=== PATIENT | female | born 1945 | race Caucasian/White ===

== ENCOUNTER → 2016-06-24 | Outpatient (CLI) | payer MEDICARE ==
[2016-06-24 14:07] LABS: Basophils % (A) 0 %; CH 29.9; CHCM 32.5; Eosinophils # (A) 0.1 k/uL (0-0.7); Eosinophils % (A) 2 %; HCT 41.6 % (34.0-46.0); HDW 2.04; HGB 13.3 gm/dL (11.4-16.0); Luc # (Auto) 0.15; Luc % (Auto) 2; Lymphocytes # (A) 1.5 k/uL (1.0-4.8); Lymphocytes % (A) 21 %; MCH 29.6 pg (25.0-35.0); MCHC 32.1 g/dL (31.0-37.0); MCV 92.4 fL (80.0-100.0); Mean Platelet Volume 6.6; Monocytes # (A) 0.4 k/uL (0-1.0); Monocytes % (A) 6 %; Neutrophils % (A) 70 %; RDW 12.6 % (11.5-15.5); WBC 7.2 k/uL (3.8-10.6); WBC (Perox) 7.48
[2016-06-24 14:16] LABS: ALT 45 U/L (9-52); AST 27 U/L (14-36); Anion Gap 12 mmol/L; Blood Urea Nitrogen 14 mg/dL (7-17); Carbon Dioxide 28 mmol/L (22-30); Chloride 101 mmol/L (98-107); Cholesterol 199 mg/dL (<200); Creatine Kinase 55 U/L (30-135); Glucose 93 mg/dL (74-99); HDL Cholesterol 61 mg/dL (40-60); Non-African American GFR(MDRD) >60 (>60 ml/min/1.73 sqM); Potassium 4.4 mmol/L (3.5-5.1); Sodium 141 mmol/L (137-145); Triglycerides 136 mg/dL (<150)
== END | disposition home or self-care (01) ==
LOC: LABWHC1 12:02
PROVIDERS: ATTEND Internal Medicine Cardiovascular Disease
DX: E78.2 Mixed hyperlipidemia (principal); I10 Essential (primary) hypertension; I25.10 Atherosclerotic heart disease of native coronary artery without angina pectoris; Z79.899 Other long term (current) drug therapy
CPT/HCPCS: 36415; 80051; 80061; 82550; 82565; 82947; 84450; 84460; 84520; 85025

== ENCOUNTER → 2016-06-24 | Outpatient (CLI) | payer MEDICARE ==
--- NOTE | 2016-07-07 09:06 | MM ---
Reason for exam: screening (asymptomatic). Last mammogram was performed 1 year and 9 months ago. History: Patient is postmenopausal and history of other cancer. Physical Findings: A clinical breast exam by your physician is recommended on an annual basis and results should be correlated with mammographic findings. MG 3D Screening Mammo W/Cad Bilateral CC and MLO view(s) were taken. Prior study comparison: September 27, 2014, mammogram, performed at [place]. November 24, 2012, mammogram, performed at [place]. There are scattered fibroglandular densities. No significant changes when compared with prior studies. ASSESSMENT: Negative, BI-RAD 1 RECOMMENDATION: Routine screening mammogram of both breasts in 1 year.
== END | disposition home or self-care (01) ==
LOC: RADMAMWWP 11:50
PROVIDERS: ATTEND Internal Medicine
DX: Z12.31 Encounter for screening mammogram for malignant neoplasm of breast (principal)
CPT/HCPCS: 77063; G0202

== ENCOUNTER → 2017-12-15 | Outpatient (CLI) | payer MEDICARE ==
--- NOTE | 2017-12-16 11:06 | MM ---
Reason for exam: screening (asymptomatic). Last mammogram was performed 1 year and 6 months ago. History: Patient is postmenopausal and history of other cancer. Physical Findings: A clinical breast exam by your physician is recommended on an annual basis and results should be correlated with mammographic findings. MG 3D Screening Mammo W/Cad Bilateral CC and MLO view(s) were taken. Prior study comparison: June 24, 2016, bilateral MG 3d screening mammo w/cad. September 27, 2014, mammogram, performed at [place]. There are scattered fibroglandular densities. There is no discrete abnormality. ASSESSMENT: Benign, BI-RAD 2 RECOMMENDATION: Routine screening mammogram of both breasts in 1 year.
== END | disposition home or self-care (01) ==
LOC: RADMAMWWP 09:10
PROVIDERS: ATTEND Internal Medicine
DX: Z12.31 Encounter for screening mammogram for malignant neoplasm of breast (principal)
CPT/HCPCS: 77063; 77067

== ENCOUNTER 2018-04-05 09:17 | Day surgery (SDC) | payer MEDICARE ==
[2018-04-02 09:32] VITALS: BMI 27.2
[~2018-04-05 09:17] MED LIST: LACTATED RINGERS 1,000 ML IV SCH
[2018-04-05 10:18] VITALS: TEMP 97.6
[2018-04-05] MEDS ORDERED: PROPOFOL 10 MG/ML 20 ML VIAL IV ONE (10:41)
--- NOTE | 2018-04-05 11:22 | P.PCN ---
Date of Procedure: 04/05/18 Procedure(s) Performed: Procedure: Total colonoscopy. Preoperative diagnosis: Screening for neoplasia patient has history of polyps. Postoperative diagnosis: Sigmoid diverticulosis with no evidence of acute diverticulitis, strictures, polyps or cancer. Preparation: HalfLytely prep. Sedation: Was provided by anesthesia. Brief clinical history: The patient is a 72-year-old female who is scheduled for this evaluation for screening for neoplasia age being his risk factor in addition to history of polyps and family history of colon cancer in her mother. She has no abdominal complaints, bleeding or anemia. Her last colonoscopy was around 3 or 4 years ago. Procedure: With the patient on her left lateral decubitus position and after informed consent and adequate sedation, the perianal area was inspected and it did not show any fissures or fistulas. There were no masses felt on digital rectal examination. The Olympus CFQ 160L video colonoscope was then inserted in the rectum in the usual fashion and advanced to the cecum. Unfortunately, the preparation was less than ideal and I spent some time cleansing the bowel wall as l was withdrawing the endoscope. The mucosa appeared healthy. No polyps or tumors were seen. Multiple diverticular orifices were seen scattered in the sigmoid. There was no evidence of acute diverticulitis or strictures. I retroflexed the endoscope in the rectum before the endoscope was withdrawn. The patient tolerated the procedure well. Plan: The patient was reassured. She will follow up with you as planned. Discussed dietary measures. I recommended repeat exam in 3 years after a 2 day prep.
[2018-04-05 11:45] VITALS: BP 134/78; PULSE 66; RESP 18
== END 2018-04-05 11:51 | disposition home or self-care (01) ==
LOC: ORWHC2ENDO 09:17
DX: Z12.11 Encounter for screening for malignant neoplasm of colon (principal); K57.30 Diverticulosis of large intestine without perforation or abscess without bleeding; Z86.010 Personal history of colon polyps; Z80.0 Family history of malignant neoplasm of digestive organs; I10 Essential (primary) hypertension; E78.5 Hyperlipidemia, unspecified; F32.9 Major depressive disorder, single episode, unspecified; J44.9 Chronic obstructive pulmonary disease, unspecified; M19.90 Unspecified osteoarthritis, unspecified site; Z86.73 Personal history of transient ischemic attack (TIA), and cerebral infarction without residual deficits; I25.2 Old myocardial infarction; Z95.5 Presence of coronary angioplasty implant and graft; I25.10 Atherosclerotic heart disease of native coronary artery without angina pectoris; I73.9 Peripheral vascular disease, unspecified; Z85.118 Personal history of other malignant neoplasm of bronchus and lung; Z90.2 Acquired absence of lung [part of]; F17.200 Nicotine dependence, unspecified, uncomplicated; Z79.02 Long term (current) use of antithrombotics/antiplatelets; Z79.891 Long term (current) use of opiate analgesic; Z79.899 Other long term (current) drug therapy; Z88.0 Allergy status to penicillin
CPT/HCPCS: J2704; G0105; 45378

== ENCOUNTER 2019-03-19 03:48 | Observation (INO) | payer MEDICARE ==
[2019-03-19] MEDS ORDERED: SODIUM CHLORIDE 0.9% 500 ML 500 ML IV STA (04:19)
--- NOTE | 2019-03-19 04:30 | XR ---
EXAMINATION TYPE: XR chest 2V DATE OF EXAM: 03/19/2019 COMPARISON: NONE HISTORY: Difficulty breathing TECHNIQUE: Frontal and lateral views of the chest are obtained. FINDINGS: Heart is normal. There is neural stimulator in the thoracic spine. There is no heart failu re. There is minimal pleural thickening along the right lateral chest wall and at the right costophre katina angle. Bony thorax is intact. IMPRESSION: Pleural diaphragmatic scarring at the right lung base. Normal heart. No heart failure.
--- NOTE | 2019-03-19 04:37 | ED ---
General Adult HPI - General Chief complaint: Shortness of Breath Stated complaint: JAYDON,nausea Time Seen by Provider: 03/19/19 03:57 Source: patient, family Mode of arrival: wheelchair Limitations: no limitations - History of Present Illness Initial comments: Dictation was produced using [employer] dictation software. please excuse any gram matical, word or spelling errors. Chief Complaint: 73-year-old female past nuchal history lung cancer, dyslipidemia, COPD hypertension presents with shortness of breath and abdominal pain. History of Present Illness: 73-year-old female she has multiple comorbid conditions. She presents today with dyspnea, cough and abdominal pain. Patient states that her symptoms started about 4 hours ago. She went to get her flu vaccine. She states that couple hours later she began developing symptoms. Patient is vague symptoms in general. She is accompanied by her son. Patient's concerned about her shortness of breath more so than her abdominal pain. Patient states she's been feeling ill since the influenza shot. Patient has any history of ALLERGIES to eggs or influenza vaccines. Patient denies any runny nose, sore throat. She has no chest pain. She feels short of breath. Patient states she normally has shortness of breath and it worries her. Today's another episode of shortness of breath. Patient has a history of lung cancer that she completed cancer treatment for. no history of blood clot. Denies any acute lower extremity symptoms. Denies any chest pain. The ROS documented in this emergency department record has been reviewed and confirmed by me. Those systems with pertinent positive or negative responses have been documented in the HPI. All other systems are other negative and/or noncontributory. PHYSICAL EXAM: General Impression: Alert and oriented x3, not in acute distress HEENT: Normocephalic atraumatic, extra-ocular movements intact, pupils equal and reactive to light bilaterally, mucous membranes moist. Cardiovascular: Heart regular rate and rhythm, S1&S2 audible, no murmurs, rubs or gallops Chest: Lungs clear to auscultation bilaterally, no rhonchi, no wheeze, no rales Abdomen: Bowel sounds present, abdomen soft, non-tender, non-distended, no organomegaly Musculoskeletal: Pulses present and equal in all extremities, no peripheral edema Motor: no focal deficits noted Neurological: CN II-XII grossly intact, no focal motor or sensory deficits noted Skin: Intact with no visualized rashes Psych: Normal affect and mood ED course: 73-year-old female presents with dyspnea and abdominal pain. As upon arrival shows temperature 99.6, heart rate of 103, worse vital signs within acceptable limits. Patient's physical examination is benign. Laboratory evaluation obtained. Mild leukocytosis of 15.1 of unclear etiology. Coag panel unremarkable. D-dimer is elevated 1.61. Metabolic panel shows findings within acceptable limits. Cardiac enzyme obtained. Patient has negative troponin. She does have elevated brain natruretic peptide of 2230. CT angios the chest was obtained and there was concern of PE given history of cancer and complaint of dyspnea with minimal findings on lung auscultation. CT angios the chest does not suggest pulmonary emboli. No findings of interstitial edema. CT of the abdomen and pelvis was obtained given that patient had right lower quadrant pain with rebound tenderness concerning for acute appendicitis. CT of the abdomen and pelvis was unremarkable. Given patient's clinical presentation there is concern for new onset congestive heart failure. Patient is agreeable for admission to observation with cardiology consultation. Patient given some Lasix. Patient to be admitted. EKG interpretation: Ventricular rate 94, normal sinus rhythm, NM interval 158, QS 96, QTC 487. Patient has nonspecific QRS and T-waves. No old EKG for comparison - Related Data Home Medications Medication Instructions Recorded Confirmed ALPRAZolam [Xanax] 0.25 mg PO BID PRN 04/02/18 04/05/18 Ammonium Lactate Cream [Lac-Hydrin 1 applic TOPICAL BID PRN 04/02/18 04/05/18 12% Cream] Aspirin EC [Ecotrin Low Dose] 81 mg PO DAILY 04/02/18 04/05/18 Atorvastatin [Lipitor] 80 mg PO HS 04/02/18 04/05/18 Celecoxib [CeleBREX] 200 mg PO DAILY 04/02/18 04/05/18 Cholecalciferol [Vitamin D3] 1,000 unit PO DAILY 04/02/18 04/05/18 Cilostazol [Pletal] 100 mg PO BID 04/02/18 04/05/18 Clopidogrel [Plavix] 75 mg PO DAILY 04/02/18 04/05/18 Ezetimibe [Zetia] 10 mg PO HS 04/02/18 04/05/18 Gabapentin [Neurontin] 100 mg PO TID 04/02/18 04/05/18 HYDROcodone/APAP 5-325MG [[place] 1 tab PO Q6HR PRN 04/02/18 04/05/18 5-325] Lisinopril(Unknown Dose) 1 tab PO HS 04/02/18 04/05/18 Sertraline [Zoloft] 100 mg PO DAILY 04/02/18 04/05/18 Zolpidem [Ambien] 10 mg PO HS PRN 04/02/18 04/05/18 amLODIPine [Norvasc] 5 mg PO DAILY 04/02/18 04/05/18 Allergies Allergy/AdvReac Type Severity Reaction Status Date / Time Penicillins Allergy Rash/Hives, Verified 03/19/19 03:57 LOC Review of Systems ROS Statement: Those systems with pertinent positive or pertinent negative responses have been documented in the HPI. ROS Other: All systems not noted in ROS Statement are negative. Past Medical History Past Medical History: Cancer, COPD, Hyperlipidemia, Hypertension, Myocardial Infarction ([place]), Osteoarthritis (OA), Vascular Disorder Additional Past Medical History / Comment(s): hx. lung cancer 6 yrs. ago, hx. colon polyps, frequent lower side pain, urinary frequency, PAD Last Myocardial Infarction Date:: unknown History of Any Multi-Drug Resistant Organisms: None Reported Past Surgical History: Heart Catheterization With Stent, Hysterectomy Additional Past Surgical History / Comment(s): right lower lobectomy, colonoscopies, stenting,angioplasty lower legs Past Anesthesia/Blood Transfusion Reactions: No Reported Reaction Date of Last Stent Placement:: 2004 Past Psychological History: No Psychological Hx Reported Smoking Status: Former smoker Past Alcohol Use History: None Reported Past Drug Use History: None Reported - Past Family History Mother Family Medical History: Cancer Additional Family Medical History / Comment(s): colon General Exam Limitations: no limitations Course Vital Signs 03/19/19 03/19/19 03/19/19 03:53 03:56 04:10 Temperature 99.6 F Pulse Rate 103 H 91 Respiratory 20 19 19 Rate Blood Pressure 144/85 153/82 O2 Sat by Pulse 95 94 L Oximetry 03/19/19 03/19/19 04:50 05:30 Temperature Pulse Rate 76 71 Respiratory 19 17 Rate Blood Pressure 142/79 150/84 O2 Sat by Pulse 94 L 96 Oximetry Medical Decision Making - Lab Data Result diagrams: 03/19/19 04:42 10/12/19 04:42 Lab Results 03/19/19 03/19/19 03/19/19 Range/Units 04:42 04:42 04:42 WBC 15.1 H (3.8-10.6) k/uL RBC 4.77 (3.80-5.40) m/uL Hgb 13.6 (11.4-16.0) gm/dL Hct 43.0 (34.0-46.0) % MCV 90.1 (80.0-100.0) fL MCH 28.6 (25.0-35.0) pg MCHC 31.7 (31.0-37.0) g/dL RDW 12.7 (11.5-15.5) % Plt Count 372 (150-450) k/uL Neutrophils % 92 % Lymphocytes % 1 % Monocytes % 5 % Eosinophils % 1 % Basophils % 1 % Neutrophils # 13.8 H (1.3-7.7) k/uL Lymphocytes # 0.2 L (1.0-4.8) k/uL Monocytes # 0.7 (0-1.0) k/uL Eosinophils # 0.1 (0-0.7) k/uL Basophils # 0.2 (0-0.2) k/uL PT 10.0 (9.0-12.0) sec INR 0.9 (<1.2) APTT 22.9 (22.0-30.0) sec D-Dimer 1.61 H (<0.60) mg/L FEU Sodium 138 (137-145) mmol/L Potassium 4.2 (3.5-5.1) mmol/L Chloride 103 (98-107) mmol/L Carbon Dioxide 24 (22-30) mmol/L Anion Gap 11 mmol/L BUN 19 H (7-17) mg/dL Creatinine 0.66 (0.52-1.04) mg/dL Est GFR (CKD-EPI)AfAm >90 (>60 ml/min/1.73 sqM) Est GFR (CKD-EPI)NonAf 87 (>60 ml/min/1.73 sqM) Glucose 118 H (74-99) mg/dL Calcium 9.5 (8.4-10.2) mg/dL Magnesium 2.0 (1.6-2.3) mg/dL Total Bilirubin 0.9 (0.2-1.3) mg/dL AST 21 (14-36) U/L ALT 17 (9-52) U/L Alkaline Phosphatase 87 (38-126) U/L Troponin I (0.000-0.034) ng/mL NT-Pro-B Natriuret Pep pg/mL Total Protein 7.7 (6.3-8.2) g/dL Albumin 4.5 (3.5-5.0) g/dL Lipase 97 (23-300) U/L 03/19/19 03/19/19 Range/Units 04:42 04:42 WBC (3.8-10.6) k/uL RBC (3.80-5.40) m/uL Hgb (11.4-16.0) gm/dL Hct (34.0-46.0) % MCV (80.0-100.0) fL MCH (25.0-35.0) pg MCHC (31.0-37.0) g/dL RDW (11.5-15.5) % Plt Count (150-450) k/uL Neutrophils % % Lymphocytes % % Monocytes % % Eosinophils % % Basophils % % Neutrophils # (1.3-7.7) k/uL Lymphocytes # (1.0-4.8) k/uL Monocytes # (0-1.0) k/uL Eosinophils # (0-0.7) k/uL Basophils # (0-0.2) k/uL PT (9.0-12.0) sec INR (<1.2) APTT (22.0-30.0) sec D-Dimer (<0.60) mg/L FEU Sodium (137-145) mmol/L Potassium (3.5-5.1) mmol/L Chloride (98-107) mmol/L Carbon Dioxide (22-30) mmol/L Anion Gap mmol/L BUN (7-17) mg/dL Creatinine (0.52-1.04) mg/dL Est GFR (CKD-EPI)AfAm (>60 ml/min/1.73 sqM) Est GFR (CKD-EPI)NonAf (>60 ml/min/1.73 sqM) Glucose (74-99) mg/dL Calcium (8.4-10.2) mg/dL Magnesium (1.6-2.3) mg/dL Total Bilirubin (0.2-1.3) mg/dL AST (14-36) U/L ALT (9-52) U/L Alkaline Phosphatase (38-126) U/L Troponin I <0.012 (0.000-0.034) ng/mL NT-Pro-B Natriuret Pep 2230 pg/mL Total Protein (6.3-8.2) g/dL Albumin (3.5-5.0) g/dL Lipase (23-300) U/L Disposition Clinical Impression: Heart failure Disposition: ADMITTED IP TO THIS HOSP Condition: Fair Referrals: Christopher Castano MD [Primary Care Provider] - 1-2 days Decision Time: 05:58
[2019-03-19 04:50] LABS: Basophils # (A) 0.2 k/uL (0-0.2); Basophils % (A) 1 %; Eosinophils # (A) 0.1 k/uL (0-0.7); Eosinophils % (A) 1 %; HGB 13.6 gm/dL (11.4-16.0); Lymphocytes # (A) 0.2 k/uL (1.0-4.8); Lymphocytes % (A) 1 %; MCH 28.6 pg (25.0-35.0); MCHC 31.7 g/dL (31.0-37.0); MCV 90.1 fL (80.0-100.0); Mean Platelet Volume 6.5; Monocytes # (A) 0.7 k/uL (0-1.0); Monocytes % (A) 5 %; Neutrophils # (A) 13.8 k/uL (1.3-7.7); Neutrophils % (A) 92 %; Platelet Count 372 k/uL (150-450); RBC 4.77 m/uL (3.80-5.40); RDW 12.7 % (11.5-15.5); WBC 15.1 k/uL (3.8-10.6)
[2019-03-19 05:00] LABS: ALT 17 U/L (9-52); AST 21 U/L (14-36); African American GFR (CKD) >90 (>60 ml/min/1.73 sqM); Albumin 4.5 g/dL (3.5-5.0); Alkaline Phosphatase 87 U/L (38-126); Anion Gap 11 mmol/L; Blood Urea Nitrogen 19 mg/dL (7-17); Calcium 9.5 mg/dL (8.4-10.2); Carbon Dioxide 24 mmol/L (22-30); Chloride 103 mmol/L (98-107); Glucose 118 mg/dL (74-99); Potassium 4.2 mmol/L (3.5-5.1); Sodium 138 mmol/L (137-145); Total Bilirubin 0.9 mg/dL (0.2-1.3); Total Protein 7.7 g/dL (6.3-8.2)
[2019-03-19 05:03] LABS: INR 0.9 (<1.2); Partial Thromboplastin Time 22.9 sec (22.0-30.0)
[2019-03-19 05:13] LABS: D-Dimer 1.61 mg/L FEU (<0.60)
--- NOTE | 2019-03-19 05:34 | CT ---
EXAMINATION TYPE: CT abdomen pelvis w con DATE OF EXAM: 03/19/2019 COMPARISON: None HISTORY: RLQ abdominal pain CT DLP: 1151.50 mGycm Automated exposure control for dose reduction was used. TECHNIQUE: Helical acquisition of images was performed from the lung bases through the pelvis. CONTRAST: Performed without Oral Contrast and with IV Contrast, patient injected with 100mL mL of Isovue 300. FINDINGS: Lung bases show minimal scarring and subsegmental atelectasis. There is no pleural effusion. Heart si ze is normal. There is small hiatal hernia. There is minimal pleural thickening posterior lateral rig ht lung base. Liver shows no focal defect. Bile ducts are not dilated. Gallbladder appears normal. Spleen appears n ormal. There is no evidence of a pancreatic mass. There is no adrenal mass. Kidneys show satisfactory contrast opacification. There is no hydronephrosis. Ureters are not dilated. There is no retroperito efrain adenopathy. Abdominal aorta is atheromatous. Bladder distends smoothly. There is no inguinal her lillian. There is moderate sigmoid diverticulosis. There is no free fluid in the pelvis. Appendix appears normal. There is no mesenteric edema. There is no ascites or free air. There is no s ign of a bowel obstruction. There are spondylotic changes in the lumbar spine. There is no compressio n fracture. There is multilevel vacuum disc. The bony pelvis appears intact. There is neural stimulat or in the thoracic spine. There is moderate atherosclerotic vascular calcification. IMPRESSION: MINIMAL SCARRING AND SUBSEGMENTAL ATELECTASIS AT THE LUNG BASES. SMALL HIATAL HERNIA. MODERATE SIGMOID DIVERTICULOSIS WITHOUT EVIDENCE OF DIVERTICULITIS. NORMAL APPENDIX. I DO NOT SEE A C AUSE FOR RIGHT LOWER QUADRANT PAIN.
--- NOTE | 2019-03-19 05:43 | CT ---
EXAMINATION TYPE: CT angio chest DATE OF EXAM: 03/19/2019 5:27 AM COMPARISON: None HISTORY: R/O PE CT DLP: 355.8 mGycm Automated exposure control for dose reduction was used. CONTRAST: CTA scan of the thorax is performed with IV Contrast, patient injected with 55 mL of Isovue 370, pulm onary embolism protocol. . There are 3-D post processed images. FINDINGS: There is diffuse pulmonary emphysema. Heart is borderline enlarged. There is no pleural effusion. The re is some mild linear density at the lung bases. Thoracic aorta is atheromatous. There is no aneurys m. There is no mediastinal adenopathy. Ascending aorta measures 3.5 cm. There is normal contrast opacification of the pulmonary arteries. I see no filling defects. There is multilevel spondylotic changes in the thoracic spine. There is no compression fracture. Ther e is mild thoracolumbar levoscoliosis. IMPRESSION: EMPHYSEMA AND PULMONARY FIBROTIC CHANGES. NO EVIDENCE OF PULMONARY EMBOLISM. ATHEROSCLEROTIC VASCULAR DISEASE.
[2019-03-19] MEDS ORDERED: NALOXONE 0.4 MG/ML 1 ML VIAL IV PRN (05:54)
[2019-03-19] MEDS ORDERED: FUROSEMIDE 40 MG TAB PO STA (05:55)
[2019-03-19] MEDS ORDERED: ACETAMINOPHEN TAB 325 MG TAB PO PRN (06:16)
[2019-03-19] MEDS: PANTOPRAZOLE 40 MG TABLET PO SCH (09:40)
--- NOTE | 2019-03-19 12:21 | P.CRDCN ---
History of Present Illness Consult date: 03/19/19 Chief complaint: Shortness of breath History of present illness: This is a pleasant 73-year-old female patient with an extensive past m edical history consistent of coronary artery disease and prior coronary artery angioplasty and stenting with unknown details, peripheral arterial disease and status post bilateral lower extremities angioplasty with unknown details as well as, hypertension, and dyslipidemia, presented to the emergency room complaining of shortness of breath. The patient main symptom is orthopnea. She denies any exertional dyspnea but she stated that she is not very active and she does not walk a lot. She denies any symptoms of chest pain or chest discomfort. Lately she has been experiencing beside the orthopnea abdominal discomfort as well as cough. The symptoms started yesterday. Before yesterday she was feeling better. No dizziness or lightheadedness, heart racing or fluttering, or syncope. The EKG showed sinus rhythm. The chest x-ray did not show any acute abnormalities. The troponin as a first set came in to be unremarkable. The computed tomography scan of the abdomen and pelvis did not show any acute abnormalities. The computed tomography scan of the chest did not show any evidence of PE. The BNP came in to be elevated. Past Medical History Past Medical History: Cancer, COPD, Hyperlipidemia, Hypertension, Myocardial Infarction ([place]), Osteoarthritis (OA), Vascular Disorder Additional Past Medical History / Comment(s): hx. lung cancer 6 yrs. ago, hx. colon polyps, frequent lower side pain, urinary frequency, PAD Last Myocardial Infarction Date:: unknown History of Any Multi-Drug Resistant Organisms: None Reported Past Surgical History: Heart Catheterization With Stent, Hysterectomy Additional Past Surgical History / Comment(s): right lower lobectomy, colonoscopies, stenting,angioplasty lower legs Past Anesthesia/Blood Transfusion Reactions: No Reported Reaction Date of Last Stent Placement:: 2004 Past Psychological History: Anxiety, Depression Smoking Status: Former smoker Past Alcohol Use History: None Reported Additional Past Alcohol Use History / Comment(s): quit smoking 2011, 1ppd since teens, doesn't drink much anymore Past Drug Use History: None Reported - Past Family History Mother Family Medical History: Cancer Additional Family Medical History / Comment(s): colon Medications and Allergies Home Medications Medication Instructions Recorded Confirmed Type ALPRAZolam [Xanax] 0.25 mg PO BID 04/02/18 03/19/19 History Aspirin EC [Ecotrin Low Dose] 81 mg PO DAILY 04/02/18 03/19/19 History Atorvastatin [Lipitor] 80 mg PO HS 04/02/18 03/19/19 History Celecoxib [CeleBREX] 200 mg PO DAILY 04/02/18 03/19/19 History Cholecalciferol [Vitamin D3] 1,000 unit PO DAILY 04/02/18 03/19/19 History Cilostazol [Pletal] 100 mg PO BID 04/02/18 03/19/19 History Clopidogrel [Plavix] 75 mg PO DAILY 04/02/18 03/19/19 History Ezetimibe [Zetia] 10 mg PO HS 04/02/18 03/19/19 History HYDROcodone/APAP 5-325MG [[place] 1 tab PO TID 04/02/18 03/19/19 History 5-325] Sertraline [Zoloft] 100 mg PO DAILY 04/02/18 03/19/19 History Zolpidem [Ambien] 10 mg PO HS 04/02/18 03/19/19 History amLODIPine [Norvasc] 5 mg PO DAILY 04/02/18 03/19/19 History Carvedilol [Coreg] 12.5 mg PO BID 03/19/19 03/19/19 History Losartan [Cozaar] 25 mg PO DAILY 03/19/19 03/19/19 History Allergies Allergy/AdvReac Type Severity Reaction Status Date / Time Penicillins Allergy Rash/Hives, Verified 03/19/19 08:19 LOC Physical Exam Vitals: Vital Signs Temp Pulse Pulse Resp BP BP Pulse Ox 03/19/19 07:00 98.9 F 73 16 137/73 95 03/19/19 06:00 73 16 150/84 95 03/19/19 05:30 71 17 150/84 96 03/19/19 04:50 76 19 142/79 94 L 03/19/19 04:10 91 19 153/82 94 L 03/19/19 03:56 19 03/19/19 03:53 99.6 F 103 H 20 144/85 95 Intake and Output 03/18/19 03/19/19 03/19/19 22:59 06:59 14:59 Other: Voiding Method Toilet Weight 79.379 kg - Constitutional General appearance: no acute distress - Respiratory Respiratory: bilateral: diminished - Cardiovascular Rhythm: regular Heart sounds: normal: S1, S2 Results 03/19/19 04:42 03/19/19 04:42 Cardiac Enzymes 03/19/19 03/19/19 Range/Units 04:42 04:42 AST 21 (14-36) U/L Troponin I <0.012 (0.000-0.034) ng/mL Coagulation 03/19/19 Range/Units 04:42 PT 10.0 (9.0-12.0) sec APTT 22.9 (22.0-30.0) sec CBC 03/19/19 Range/Units 04:42 WBC 15.1 H (3.8-10.6) k/uL RBC 4.77 (3.80-5.40) m/uL Hgb 13.6 (11.4-16.0) gm/dL Hct 43.0 (34.0-46.0) % Plt Count 372 (150-450) k/uL Comprehensive Metabolic Panel 03/19/19 Range/Units 04:42 Sodium 138 (137-145) mmol/L Potassium 4.2 (3.5-5.1) mmol/L Chloride 103 (98-107) mmol/L Carbon Dioxide 24 (22-30) mmol/L BUN 19 H (7-17) mg/dL Creatinine 0.66 (0.52-1.04) mg/dL Glucose 118 H (74-99) mg/dL Calcium 9.5 (8.4-10.2) mg/dL AST 21 (14-36) U/L ALT 17 (9-52) U/L Alkaline Phosphatase 87 (38-126) U/L Total Protein 7.7 (6.3-8.2) g/dL Albumin 4.5 (3.5-5.0) g/dL Current Medications Generic Name Dose Route Start Last Admin Trade Name Freq PRN Reason Stop Dose Admin Acetaminophen 650 mg 03/19/19 06:16 03/19/19 09:40 Tylenol Tab PO 650 mg Q6HR PRN Administration Fever and/ or Pain Sodium Chloride 1,000 mls @ 20 mls/hr 03/19/19 06:00 Saline 0.9% IV .Q24H INÉS Naloxone HCl 0.2 mg 03/19/19 05:54 Narcan IV Q2M PRN Opioid Reversal Pantoprazole Sodium 40 mg 03/19/19 07:30 03/19/19 09:40 Protonix PO 40 mg [id number] INÉS Administration Intake and Output 03/18/19 03/19/19 03/19/19 22:59 06:59 14:59 Other: Voiding Method Toilet Weight 79.379 kg 03/19/19 04:42 03/19/19 04:42 Assessment and Plan Assessment: Assessment #1 orthopnea associated with bilateral lower extremities edema #2 mild congestive heart failure exacerbation of unknown etiology #3 severe coronary artery disease and prior angioplasty and stenting with unknown details #4 peripheral arterial disease and status post bilateral lower extremities angioplasty #5 hypertension #6 dyslipidemia Plan #1 rule out acute coronary event. We'll follow-up with the serial cardiac enzymes #2 obtain an echocardiogram was Doppler to establish LV function #3 start the patient on a small dose of Lasix at 20 mg IV twice a day #4 continue monitor the kidney function and electrolytes #5 follow-up with the patient Thank you for allowing us participate in her care
--- NOTE | 2019-03-19 13:05 | P.HPIM ---
History of Present Illness This is a pleasant 73 years old female with past medical history of COPD, hyperlipidemia, hypertension, coronary artery disease, osteoarthritis, peripheral vascular disease, cancer 6 years ago. Who presents because of dyspnea of one-day duration. She didn't want to come to the hospital initially but then she got orthopnea and decided to come to the hospital however she has no similar complaints over the last week. No coughing. No chest pain. No paroxysmal nocturnal dyspnea Vital signs stable. Labs showed leukocytosis of 15.1, with unremarkable BMP and liver enzymes and negative troponin 1. CTA of the chest: Showed no evidence of pulmonary comfortable is him however there is a physical medicine changes with fibrotic changes. CT of the abdomen and pelvis with contrast showing no significant abnormalities. Chest x-ray: No acute cardiopulmonary process. ProBNP is 2230 on admission she got a bolus of 500 mL and 1 dose of every Lasix. Patient has been seen by director business development who started her on Lasix 40 mg twice daily.. MAPS was checked for the patient and she was been prescribed 15 tablets of [place] 5-325 for 5 days on 03/11/2019. Which means that she takes them 3 times daily, were going to lower the frequency to twice a day Review of Systems CONSTITUTIONAL: No fever, no malaise, no fatigue. HEENT: No recent visual problems or hearing problems. Denied any sore throat. CARDIOVASCULAR: No orthopnea, PND, no palpitations, no syncope. PULMONARY: No shortness of breath, no cough, no hemoptysis. GASTROINTESTINAL: No diarrhea, no nausea, no vomiting, no abdominal pain. N ormoactive bowel sounds. NEUROLOGICAL: No headaches, no weakness, no numbness. HEMATOLOGICAL: Denies any bleeding or petechiae. GENITOURINARY: Denies any burning micturition, frequency, or urgency. MUSCULOSKELETAL/RHEUMATOLOGICAL: Denies any joint pain, swelling, or any muscle pain. ENDOCRINE: Denies any polyuria or polydipsia. Past Medical History Past Medical History: Cancer, COPD, Hyperlipidemia, Hypertension, Myocardial Infarction (AR), Osteoarthritis (OA), Vascular Disorder Additional Past Medical History / Comment(s): hx. lung cancer 6 yrs. ago, hx. colon polyps, frequent lower side pain, urinary frequency, PAD Last Myocardial Infarction Date:: unknown History of Any Multi-Drug Resistant Organisms: None Reported Past Surgical History: Heart Catheterization With Stent, Hysterectomy Additional Past Surgical History / Comment(s): right lower lobectomy, colonoscopies, stenting,angioplasty lower legs Past Anesthesia/Blood Transfusion Reactions: No Reported Reaction Date of Last Stent Placement:: 2004 Past Psychological History: Anxiety, Depression Smoking Status: Former smoker Past Alcohol Use History: None Reported Additional Past Alcohol Use History / Comment(s): quit smoking 2011, 1ppd since teens, doesn't drink much anymore Past Drug Use History: None Reported - Past Family History Mother Family Medical History: Cancer Additional Family Medical History / Comment(s): colon Medications and Allergies Home Medications Medication Instructions Recorded Confirmed Type ALPRAZolam [Xanax] 0.25 mg PO BID 04/02/18 03/19/19 History Aspirin EC [Ecotrin Low Dose] 81 mg PO DAILY 04/02/18 03/19/19 History Atorvastatin [Lipitor] 80 mg PO HS 04/02/18 03/19/19 History Celecoxib [CeleBREX] 200 mg PO DAILY 04/02/18 03/19/19 History Cholecalciferol [Vitamin D3] 1,000 unit PO DAILY 04/02/18 03/19/19 History Cilostazol [Pletal] 100 mg PO BID 04/02/18 03/19/19 History Clopidogrel [Plavix] 75 mg PO DAILY 04/02/18 03/19/19 History Ezetimibe [Zetia] 10 mg PO HS 04/02/18 03/19/19 History HYDROcodone/APAP 5-325MG [Norwood 1 tab PO TID 04/02/18 03/19/19 History 5-325] Sertraline [Zoloft] 100 mg PO DAILY 04/02/18 03/19/19 History Zolpidem [Ambien] 10 mg PO HS 04/02/18 03/19/19 History amLODIPine [Norvasc] 5 mg PO DAILY 04/02/18 03/19/19 History Carvedilol [Coreg] 12.5 mg PO BID 03/19/19 03/19/19 History Losartan [Cozaar] 25 mg PO DAILY 03/19/19 03/19/19 History Allergies Allergy/AdvReac Type Severity Reaction Status Date / Time Penicillins Allergy Rash/Hives, Verified 03/19/19 08:19 LOC Physical Exam Vitals: Vital Signs Temp Pulse Pulse Resp BP BP Pulse Ox 03/19/19 07:00 98.9 F 73 16 137/73 95 03/19/19 06:00 73 16 150/84 95 03/19/19 05:30 71 17 150/84 96 03/19/19 04:50 76 19 142/79 94 L 03/19/19 04:10 91 19 153/82 94 L 03/19/19 03:56 19 03/19/19 03:53 99.6 F 103 H 20 144/85 95 Intake and Output 03/18/19 03/19/19 03/19/19 22:59 06:59 14:59 Other: Voiding Method Toilet Weight 79.379 kg GENERAL: The patient is alert and oriented x3, not in any acute distress. Well developed, well nourished. HEENT: Pupils are round and equally reacting to light. EOMI. No scleral icterus. No conjunctival pallor. Normocephalic, atraumatic. No pharyngeal erythema. No t hyromegaly. CARDIOVASCULAR: S1 and S2 present. No murmurs, rubs, or gallops. -PULMONARY: Chest is clear to auscultation, minimal or no basal crepitation. No wheezing ABDOMEN: Soft, nontender, nondistended, normoactive bowel sounds. No palpable organomegaly. MUSCULOSKELETAL: No joint swelling or deformity. EXTREMITIES: No cyanosis, clubbing, or pedal edema. NEUROLOGICAL: Gross neurological examination did not reveal any focal deficits. SKIN: No rashes. No petechiae Results CBC & Chem 7: 03/19/19 04:42 03/19/19 04:42 Labs: Abnormal Lab Results - Last 24 Hours (Table) 03/19/19 03/19/19 03/19/19 Range/Units 04:42 04:42 04:42 WBC 15.1 H (3.8-10.6) k/uL Neutrophils # 13.8 H (1.3-7.7) k/uL Lymphocytes # 0.2 L (1.0-4.8) k/uL D-Dimer 1.61 H (<0.60) mg/L FEU BUN 19 H (7-17) mg/dL Glucose 118 H (74-99) mg/dL Thrombosis Risk Factor Assmnt - Choose All That Apply Any of the Below Risk Factors Present?: Yes Each Factor Represents 1 point: Abnormal pulmonary function (COPD), Acute AR, Obesity (BMI >25), Swollen legs (current) Other Risk Factors: Yes Each Risk Factor Represents 2 Points: Malignancy Thrombosis Risk Factor Assessment Total Risk Factor Score: 6 Thrombosis Risk Factor Assessment Level: High Risk Assessment and Plan Assessment: Acute on chronic congestive heart failure, unknown ejection fraction Leukocytosis COPD Hyperlipidemia Hypertension History of coronary artery disease Peripheral artery disease Primary as arthritis History of lung cancer 6 years ago Plan: this is a pleasant 73 years old female who presents with dyspnea probably from conversion disorder and sutures in her life, with some elements of heart failure. Continue with director business development recommendation for Lasix. Resume her Xanax and decreased from 0.25-0.5 as needed and lower the dose of [place] from every 3 hours 2 twice a day when necessary. Labs and medication were reviewed.. Continue same treatment. Continue with symptomatic treatment. Resume home medication. Monitor lytes and vitals. DVT and GI prophylaxis. Further recommendations of the clinical course of the patient DVT prophylaxis: Subcutaneous heparin GI Prophylaxis: Pepcid PT/OT: Pending Prognosis is guarded
[2019-03-19] MEDS ORDERED: ALPRAZolam 0.5 MG TAB PO STA (13:59)
[2019-03-19] MEDS ORDERED: HYDROcodone/APAP 5-325MG 1 EACH TAB PO STA (14:11)
[2019-03-19] MEDS ORDERED: HYDROcodone/APAP 5-325MG 1 EACH TAB PO SCH (16:00)
[2019-03-19] MEDS: SODIUM CHLORIDE 0.9% 1,000 ML IV SCH (17:45)
[2019-03-19] MEDS: CARVEDILOL 12.5 MG TAB PO SCH (17:52)
[2019-03-19] MEDS: FUROSEMIDE 10 MG/ML 2 ML VIAL IV SCH (20:50)
[2019-03-19] MEDS: CILOSTAZOL 100 MG TAB PO SCH (20:50)
[2019-03-19] MEDS: EZETIMIBE 10 MG TAB PO SCH (20:50)
[2019-03-19] MEDS: HYDROcodone/APAP 5-325MG 1 EACH TAB PO SCH (20:51)
[2019-03-19] MEDS: ATORVASTATIN 80 MG TAB PO SCH (20:52)
[2019-03-19] MEDS ORDERED: ALPRAZolam 0.5 MG TAB PO SCH (21:00)
[2019-03-20] MEDS: SODIUM CHLORIDE 0.9% 1,000 ML IV SCH (04:57)
[2019-03-20 06:57] LABS: Basophils % (A) 0 %; Eosinophils # (A) 0.2 k/uL (0-0.7); Eosinophils % (A) 3 %; HGB 11.8 gm/dL (11.4-16.0); Lymphocytes # (A) 1.3 k/uL (1.0-4.8); Lymphocytes % (A) 18 %; MCH 30.1 pg (25.0-35.0); MCV 93.9 fL (80.0-100.0); Monocytes # (A) 0.5 k/uL (0-1.0); Monocytes % (A) 8 %; Neutrophils # (A) 4.7 k/uL (1.3-7.7); Neutrophils % (A) 68 %; Platelet Count 339 k/uL (150-450); RBC 3.94 m/uL (3.80-5.40); RDW 12.5 % (11.5-15.5); WBC 6.9 k/uL (3.8-10.6)
[2019-03-20] MEDS: CILOSTAZOL 100 MG TAB PO SCH ×2 (08:38→20:05)
[2019-03-20] MEDS: ALPRAZolam 0.5 MG TAB PO SCH ×2 (08:39→20:05)
[2019-03-20] MEDS: ASPIRIN 81 MG PO SCH (08:39)
[2019-03-20] MEDS: CLOPIDOGREL 75 MG TAB PO SCH (08:39)
[2019-03-20] MEDS: PANTOPRAZOLE 40 MG TABLET PO SCH (08:39)
[2019-03-20] MEDS: CHOLECALCIFEROL 1,000 UNIT TAB PO SCH (08:40)
[2019-03-20] MEDS: CARVEDILOL 12.5 MG TAB PO SCH ×2 (08:40→18:10)
[2019-03-20] MEDS: amLODIPine 5 MG TAB PO SCH (08:40)
[2019-03-20] MEDS: FUROSEMIDE 10 MG/ML 2 ML VIAL IV SCH (08:51)
[2019-03-20] MEDS: HYDROcodone/APAP 5-325MG 1 EACH TAB PO SCH ×2 (08:52→20:06)
[2019-03-20] MEDS: LOSARTAN 25 MG TAB PO SCH (08:52)
--- NOTE | 2019-03-20 09:20 | P.PN ---
Subjective Progress Note Date: 03/20/19 Principal diagnosis: Congestive heart failure of unknown etiology This is a pleasant 73-year-old female patient with an extensive past medical history consistent of coronary artery disease and prior coronary artery angioplasty and stenting with unknown details, peripheral arterial disease and status post bilateral lower extremities angioplasty with unknown details as well as, hypertension, and dyslipidemia, presented to the emergency room complaining of shortness of breath. The patient main symptom is orthopnea. She denies any exertional dyspnea but she stated that she is not very active and she does not walk a lot. She denies any symptoms of chest pain or chest discomfort. Lately she has been experiencing beside the orthopnea abdominal discomfort as well as cough. The symptoms started yesterday. Before yesterday she was feeling better. No dizziness or lightheadedness, heart racing or fluttering, or syncope. The EKG showed sinus rhythm. The chest x-ray did not show any acute abnormalities. The troponin as a first set came in to be unremarkable. The computed tomography scan of the abdomen and pelvis did not show any acute abnormalities. The computed tomography scan of the chest did not show any evidence of PE. The BNP came in to be elevated. On follow-up with the patient today, 03/20/2019, the patient stated that she is feeling better in terms of shortness of breath. No chest pain or chest discomfort. I will obtain 2 more sets of serial cardiac enzymes to rule out acute coronary event. An echocardiogram order was placed and the echo is in process to be done. I would advise keeping the patient one more day to tomorrow. Continue IV Lasix and continue monitoring the kidney function and electrolytes. Objective - Vital Signs Vital signs: Vital Signs Temp 97.7 F 03/20/19 01:15 Pulse 70 03/20/19 01:15 Resp 18 03/20/19 04:37 BP 115/72 03/20/19 01:15 Pulse Ox 97 03/20/19 01:15 Intake & Output 03/19/19 03/20/19 03/20/19 18:59 06:59 18:59 Intake Total 444 Balance 444 Intake: Oral 444 Other: Voiding Method Toilet Toilet # Voids 2 2 - Constitutional General appearance: Present: no acute distress - Respiratory Respiratory: bilateral: CTA - Cardiovascular Rhythm: regular Heart sounds: normal: S1, S2 - Labs CBC & Chem 7: 03/20/19 06:25 03/19/19 04:42 Assessment and Plan Assessment: Assessment #1 orthopnea associated with bilateral lower extremities edema #2 mild congestive heart failure exacerbation of unknown etiology #3 severe coronary artery disease and prior angioplasty and stenting with unknown details #4 peripheral arterial disease and status post bilateral lower extremities angioplasty #5 hypertension #6 dyslipidemia Plan #1 rule out acute coronary event. We'll follow-up with the serial cardiac enzymes #2 obtain an echocardiogram was Doppler to establish LV function #3 continue the current dose of Lasix IV #4 continue monitor the kidney function and electrolytes #5 follow-up with the patient Thank you for allowing us participate in her care
--- NOTE | 2019-03-20 12:59 | P.PN ---
Subjective This is a pleasant 73 years old female with past medical history of COPD, hyperlipidemia, hypertension, coronary artery disease, osteoarthritis, per ipheral vascular disease, cancer 6 years ago. Who presents because of dyspnea of one-day duration. She didn't want to come to the hospital initially but then she got orthopnea and decided to come to the hospital however she has no similar complaints over the last week. No coughing. No chest pain. No paroxysmal nocturnal dyspnea Vital signs stable. Labs showed leukocytosis of 15.1, with unremarkable BMP and liver enzymes and negative troponin 1. CTA of the chest: Showed no evidence of pulmonary comfortable is him however there is a physical medicine changes with fibrotic changes. CT of the abdomen and pelvis with contrast showing no significant abnormalities. Chest x-ray: No acute cardiopulmonary process. ProBNP is 2230 on admission she got a bolus of 500 mL and 1 dose of every Lasix. Patient has been seen by kiln worker who started her on Lasix 40 mg twice daily.. MAPS was checked for the patient and she was been prescribed 15 tablets of [place] 5-325 for 5 days on 03/11/2019. Which means that she takes them 3 times daily, were going to lower the frequency to twice a day 03/20/2019 Patient is improving gradually. Vitas looks stable and she saturating 96 on room air. Her leukocytosis is back to normal. Forepart Reducer evaluated the patient and her echocardiograms pending. Objective - Vital Signs Vital signs: Vital Signs Temp 97.6 F 03/20/19 07:00 Pulse 70 03/20/19 07:00 Resp 16 03/20/19 07:00 BP 102/62 03/20/19 07:00 Pulse Ox 96 03/20/19 07:00 Intake & Output 03/19/19 03/20/19 03/20/19 18:59 06:59 18:59 Intake Total 444 296 Balance 444 296 Intake: Oral 444 296 Other: Voiding Method Toilet Toilet Toilet # Voids 2 2 - Exam GENERAL: The patient is alert and oriented x3, not in any acute distress. Well developed, well nourished. HEENT: Pupils are round and equally reacting to light. EOMI. No scleral icterus. No conjunctival pallor. Normocephalic, atraumatic. No pharyngeal erythema. No thyromegaly. CARDIOVASCULAR: S1 and S2 present. No murmurs, rubs, or gallops. PULMONARY: Chest is clear to auscultation, no wheezing or crackles. ABDOMEN: Soft, nontender, nondistended, normoactive bowel sounds. No palpable organomegaly. MUSCULOSKELETAL: No joint swelling or deformity. EXTREMITIES: No cyanosis, clubbing, or pedal edema. NEUROLOGICAL: Gross neurological examination did not reveal any focal deficits. SKIN: No rashes. no petechiae. - Labs CBC & Chem 7: 03/20/19 06:25 03/19/19 04:42 Assessment and Plan Assessment: Acute on chronic congestive heart failure, unknown ejection fraction Leukocytosis COPD Hyperlipidemia Hypertension History of coronary artery disease Peripheral artery disease Primary as arthritis History of lung cancer 6 years ago Plan: this is a pleasant 73 years old female who presents with dyspnea probably from conversion disorder and sutures in her life, with some elements of heart failure. Continue with kiln worker recommendation for Lasix. Resume her Xanax and decreased from 0.25-0.5 as needed and lower the dose of Mchenry from every 3 hours 2 twice a day when necessary. Labs and medication were reviewed.. Continue same treatment. Continue with symptomatic treatment. Resume home medication. Monitor lytes and vitals. DVT and GI prophylaxis. Further recommendations of the clinical course of the patient DVT prophylaxis: Subcutaneous heparin GI Prophylaxis: Pepcid PT/OT: Pending Prognosis is guarded
--- NOTE | 2019-03-20 13:00 | ECHOF ---
Referral Reason:chf MEASUREMENTS -------- HEIGHT: 167.6 cm WEIGHT: 79.4 kg BP: 137/73 RVIDd: 3.2 cm (< 3.3) IVSd: 1.3 cm (0.6 - 1.1) LVIDd: 4.8 cm (3.9 - 5.3) LVPWd: 1.5 cm (0.6 - 1.1) IVSs: 1.9 cm LVIDs: 3.0 cm LVPWs: 1.9 cm LAESV Index (A-L): 25.08 ml/m Ao Diam: 3.6 cm (2.0 - 3.7) AV Cusp: 1.8 cm (1.5 - 2.6) LA Diam: 3.2 cm (2.7 - 3.8) MV EXCURSION: 9.371 mm (> 18.000) MV EF SLOPE: 42 mm/s (70 - 150) EPSS: 1.1 cm MV E Kirt: 0.46 m/s MV DecT: 224 ms MV A Kirt: 0.76 m/s MV E/A Ratio: 0.60 RAP: 5.00 mmHg RVSP: 21.70 mmHg FINDINGS -------- Sinus rhythm. This was a technically adequate study. The left ventricular size is normal. There is mild concentric left ventricular hypertrophy. Overa ll left ventricular systolic function is normal with, an EF between 60 - 65 %. The diastolic fillin g pattern is normal for the age of the patient 7.90. The right ventricle is normal in size. Normal LA size by volume 22+/-6 ml/m2. The right atrium was not well visualized. Interatrial and interventricular septum intact. The aortic valve is trileaflet and appears structurally normal. There is no evidence of aortic regu rgitation. There is no evidence of aortic stenosis. There is trace mitral regurgitation. Mild tricuspid regurgitation present. There is no evidence of pulmonary hypertension. The right v entricular systolic pressure, as measured by Doppler, is 21.70mmHg. There is no pulmonic regurgitation present. The aortic root size is normal. Normal inferior vena cava with normal inspiratory collapse consistent with estimated right atrial pre ssure of 5 mmHg. There is no pericardial effusion. CONCLUSIONS -------- 1. Sinus rhythm. 2. This was a technically adequate study. 3. The left ventricular size is normal. 4. There is mild concentric left ventricular hypertrophy. 5. Overall left ventricular systolic function is normal with, an EF between 60 - 65 %. 6. The diastolic filling pattern is normal for the age of the patient 7.90 7. The right ventricle is normal in size. 8. Normal LA size by volume 22+/-6 ml/m2. 9. The right atrium was not well visualized. 10. Interatrial and interventricular septum intact. 11. The aortic valve is trileaflet and appears structurally normal. 12. There is no evidence of aortic regurgitation. 13. There is no evidence of aortic stenosis. 14. There is trace mitral regurgitation. 15. Mild tricuspid regurgitation present. 16. There is no evidence of pulmonary hypertension. 17. The right ventricular systolic pressure, as measured by Doppler, is 21.70mmHg. 18. There is no pulmonic regurgitation present. 19. The aortic root size is normal. 20. Normal inferior vena cava with normal inspiratory collapse consistent with estimated right atrial pressure of 5 mmHg. 21. There is no pericardial effusion. SET KEY DRIVER: Dorina Myers RDCS
[2019-03-20] MEDS: ATORVASTATIN 80 MG TAB PO SCH (20:05)
[2019-03-20] MEDS: HEPARIN SODIUM,PORCINE 5,000 UNIT/ML 1 ML VIAL SQ SCH (20:08)
[2019-03-20] MEDS: EZETIMIBE 10 MG TAB PO SCH (20:18)
[2019-03-20 22:08] LABS: Magnesium 2.1 mg/dL (1.6-2.3); Potassium 4.2 mmol/L (3.5-5.1)
[2019-03-21 03:07] VITALS: TEMP 98.4
[2019-03-21] MEDS: SODIUM CHLORIDE 0.9% 1,000 ML IV SCH (07:41)
[2019-03-21 07:44] VITALS: BP 129/72; PULSE 79; RESP 15
[2019-03-21] MEDS: CLOPIDOGREL 75 MG TAB PO SCH (08:16)
[2019-03-21] MEDS: CILOSTAZOL 100 MG TAB PO SCH (08:16)
[2019-03-21] MEDS: CARVEDILOL 12.5 MG TAB PO SCH (08:16)
[2019-03-21] MEDS: ASPIRIN 81 MG PO SCH (08:16)
[2019-03-21] MEDS: HEPARIN SODIUM,PORCINE 5,000 UNIT/ML 1 ML VIAL SQ SCH (08:16)
[2019-03-21] MEDS: HYDROcodone/APAP 5-325MG 1 EACH TAB PO SCH (08:17)
[2019-03-21] MEDS: LOSARTAN 25 MG TAB PO SCH (08:17)
[2019-03-21] MEDS: CHOLECALCIFEROL 1,000 UNIT TAB PO SCH (08:17)
[2019-03-21] MEDS: PANTOPRAZOLE 40 MG TABLET PO SCH (08:18)
[2019-03-21] MEDS: ALPRAZolam 0.5 MG TAB PO SCH (08:18)
[2019-03-21] MEDS: amLODIPine 5 MG TAB PO SCH (08:18)
[2019-03-21] MEDS ORDERED: FUROSEMIDE 20 MG TAB PO SCH (09:00)
--- NOTE | 2019-03-21 10:37 | P.PN ---
Subjective This is a pleasant 73-year-old female past medical history significant for coronary artery disease status post stent placement exact details unavailable, peripheral arterial disease status post bilateral iliac stenting per the patient, hypertension, dyslipidemia, history of lung cancer status post right lobectomy and former nicotine dependence. She follows with a label pinker in [place]. We're following her secondary to heart failure. She is seen and examined up walking around the room in no acute distress. She states her davis athing is much improved since admission however not back to baseline entirely. She denies any worsening shortness of breath, no chest pain, no palpitations or dizziness. Currently maintained on aspirin 81 mg daily, atorvastatin 80 mg daily, carvedilol 12.5 mg twice a day, Pletal 100 mg twice a day, Plavix 75 mg daily, that he attend milligrams daily, losartan 25 mg daily and amlodipine 5 mg daily. Blood pressure 129/72 heart rate 79 afebrile maintaining oxygen saturation on room air. Echocardiogram obtained reveals preserved LV systolic function with ejection fraction 60-65%. GENERAL: Well-appearing, well-nourished and in no acute distress. NECK: Supple without JVD or thyromegaly. LUNGS: Breath sounds clear to auscultation bilaterally. Respiration equal and unlabored. No wheezes, rales or rhonchi. HEART: Regular rate and rhythm without murmurs, rubs or gallops. S1 and S2 heard. EXTREMITIES: Normal range of motion, no edema. No clubbing or cyanosis. Peripheral pulses intact. ASSESSMENT Acute diastolic heart failure, improved. History of coronary artery disease status post stent placement Peripheral arterial disease status post bilateral lower extremity angioplasty Hypertension Dyslipidemia History of lung cancer status post lobectomy Former nicotine dependence PLAN IV lasix was stopped last night per primary care team. Add a small dose of oral lasix and discontinue amlodipine. She has an appointment already set up to see her primary label pinker in 2 days. Stable for discharge from a cardiac perspective. Nurse Practitioner note has been reviewed, I agree with a documented findings and plan of care. Patient was seen and examined. Objective - Vital Signs Vital signs: Vital Signs Temp 98.4 F 03/21/19 07:01 Pulse 79 03/21/19 07:01 Resp 15 03/21/19 07:01 BP 129/72 03/21/19 07:01 Pulse Ox 98 03/21/19 07:01 Intake & Output 03/20/19 03/21/19 03/21/19 18:59 06:59 18:59 Intake Total 592 320 Balance 592 320 Intake: Oral 592 320 Other: Voiding Method Toilet Toilet # Voids 3 1 - Labs CBC & Chem 7: 03/20/19 06:25 03/20/19 21:10
--- NOTE | 2019-03-21 11:01 | P.DS ---
Providers Date of admission: 03/19/19 05:54 Attending physician: Blessing Bethea Consults: 03/19/19 05:55 Consult Physician Routine Consulting Provider: Kishore Ulrich Consult Reason/Comments: heart failure Do you want consulting provider notified?: Yes Primary care physician: Christopher Castano MD Hospital Course: Diagnoses: Anxiety attack with dyspnea, mostly related to stress and family Low suspicion for acute diastolic CHF. Echocardiogram shows no systolic or diastolic dysfunction Leukocytosis. Resolved Chronic Primary osteoarthritis, chronic back pain with [place] Chronic pain in the lower extremity, including the bilateral knees,feet and leg as per patient more than a year. Patient declined lower extremity Doppler COPD, not in acute exacerbation Hyperlipidemia Hypertension History of coronary artery disease Peripheral artery disease Primary as arthritis History of lung cancer 6 years ago Hospital course: This is a pleasant 73 years old female with past medical history of COPD, hyperlipidemia, hypertension, coronary artery disease, osteoarthritis, peripheral vascular disease, cancer 6 years ago. Who presents because of dyspnea of one-day duration. She didn't want to come to the hospital initially but then she got orthopnea and decided to come to the hospital however she has no similar complaints over the last week. No coughing. No chest pain. No paroxysmal nocturnal dyspnea. Patient was feeling stressed significantly due to her son is going for cardiac surgery/procedure next week. Next a I saw the patient and her dyspnea was significantly improved. She denies any other symptoms. Patient has been evaluated by winch runner who ordered echocardiogram which showed ejection fraction of 60-65% with mild concentric left ventricular hypertrophy, however the diastolic filling pattern is normal for age. However winch runner recommended to stop amlodipine and to discharge patient on Lasix 20 mg daily. Prescription is provided for the patient and instructed to follow up with her winch runner in 1 week. She told me she has an appointment with her winch runner Dr. Gonzalez set up on this coming Thursday in 2 days and that she intends to go there with her son, although later she will think to switch her winch runner is somebody closer to where she lives, so the contact information was provided for winch runner associates from this hospital and she agrees. Also patient was complaining of from chronic bilateral knee pain, feet pain and leg pain for more than a year, she relates that to her primary osteoarthritis and her low back pain with possible sciatica . I offered for the patient to check Doppler for her lower extremity to rule out clots in her legs however she declines. Risks including but not limited to DVT, pulmonary embolism and are explained for the patient and she verbalized understanding however she does not want to do the test On the day of discharge patient denies chest pain or dyspnea, no change in urine or bowel habits. No abdominal pain or nausea vomiting. No fever Patient was cleared for discharge by winch runner Problems and management plan were discussed with the patient and he verbalized understanding and acceptance Patient was found stable and can be discharged home however he needs follow-up as an outpatient. Patient was instructed to follow up with PCP within one week and patient agrees Gen: patient is a AAOx3, no distress CVS: S1-S2, RRR, no murmur Lungs: B/L CTA, no wheezing Abdomen: soft, no distention, no tenderness, positive bowel sounds Extremity: no leg edema or induration Time spent more than 35 minutes Patient Condition at Discharge: Fair Plan - Discharge Summary Discharge Rx Participant: Yes New Discharge Prescriptions: No Action Sertraline [Zoloft] 100 mg PO DAILY HYDROcodone/APAP 5-325MG [[place] 5-325] 1 tab PO TID Ezetimibe [Zetia] 10 mg PO HS Clopidogrel [Plavix] 75 mg PO DAILY amLODIPine [Norvasc] 5 mg PO DAILY Cilostazol [Pletal] 100 mg PO BID Cholecalciferol [Vitamin D3] 1,000 unit PO DAILY Celecoxib [CeleBREX] 200 mg PO DAILY Atorvastatin [Lipitor] 80 mg PO HS Aspirin EC [Ecotrin Low Dose] 81 mg PO DAILY ALPRAZolam [Xanax] 0.25 mg PO BID Zolpidem [Ambien] 10 mg PO HS Carvedilol [Coreg] 12.5 mg PO BID Losartan [Cozaar] 25 mg PO DAILY Discharge Medication List ALPRAZolam [Xanax] 0.25 mg PO BID 04/02/18 [History] Aspirin EC [Ecotrin Low Dose] 81 mg PO DAILY 04/02/18 [History] Atorvastatin [Lipitor] 80 mg PO HS 04/02/18 [History] Celecoxib [CeleBREX] 200 mg PO DAILY 04/02/18 [History] Cholecalciferol [Vitamin D3] 1,000 unit PO DAILY 04/02/18 [History] Cilostazol [Pletal] 100 mg PO BID 04/02/18 [History] Clopidogrel [Plavix] 75 mg PO DAILY 04/02/18 [History] Ezetimibe [Zetia] 10 mg PO HS 04/02/18 [History] HYDROcodone/APAP 5-325MG [[place]ink[place] 5-325] 1 tab PO TID 04/02/18 [History] Sertraline [Zoloft] 100 mg PO DAILY 04/02/18 [History] Zolpidem [Ambien] 10 mg PO HS 04/02/18 [History] amLODIPine [Norvasc] 5 mg PO DAILY 04/02/18 [History] Carvedilol [Coreg] 12.5 mg PO BID 03/19/19 [History] Losartan [Cozaar] 25 mg PO DAILY 03/19/19 [History] Follow up Appointment(s)/Referral(s): Christopher Castano MD [Primary Care Provider] - 1-2 days Kishore Ulrich MD [STAFF PHYSICIAN] - 4 Weeks
== END 2019-03-21 12:13 | disposition home or self-care (01) ==
LOC: EC 03:48 → 4SSUR 05:54
PROVIDERS: ADMIT Hospitalist; ATTEND Hospitalist
DX: F41.1 Generalized anxiety disorder (principal); D72.829 Elevated white blood cell count, unspecified; M19.91 Primary osteoarthritis, unspecified site; G89.29 Other chronic pain; M25.561 Pain in right knee; M25.562 Pain in left knee; M54.5 Low back pain; J44.9 Chronic obstructive pulmonary disease, unspecified; E78.5 Hyperlipidemia, unspecified; I10 Essential (primary) hypertension; I25.10 Atherosclerotic heart disease of native coronary artery without angina pectoris; I73.9 Peripheral vascular disease, unspecified; M79.672 Pain in left foot; M79.671 Pain in right foot; M79.606 Pain in leg, unspecified; R06.09 Other forms of dyspnea; R06.01 Orthopnea; R10.30 Lower abdominal pain, unspecified; Z63.79 Other stressful life events affecting family and household; R60.9 Edema, unspecified; R79.89 Other specified abnormal findings of blood chemistry; Z95.820 Peripheral vascular angioplasty status with implants and grafts; Z87.891 Personal history of nicotine dependence; I25.2 Old myocardial infarction; F32.9 Major depressive disorder, single episode, unspecified; R35.0 Frequency of micturition; Z95.5 Presence of coronary angioplasty implant and graft; Z85.118 Personal history of other malignant neoplasm of bronchus and lung; Z87.19 Personal history of other diseases of the digestive system; Z86.010 Personal history of colon polyps; Z90.2 Acquired absence of lung [part of]; E66.9 Obesity, unspecified; Z68.28 Body mass index [BMI] 28.0-28.9, adult; Z79.899 Other long term (current) drug therapy; Z79.82 Long term (current) use of aspirin; Z79.02 Long term (current) use of antithrombotics/antiplatelets; Z79.1 Long term (current) use of non-steroidal anti-inflammatories (NSAID); Z79.891 Long term (current) use of opiate analgesic; Z88.0 Allergy status to penicillin; Z80.0 Family history of malignant neoplasm of digestive organs
CPT/HCPCS: 96372 ×2; 96374; 96361; 99285; 36415; 94760; 93005; 93306; 85379; 83880; 80053; 83690; 83735 ×2; 84132; 84484 ×2; 85025 ×2; 85610; 85730; 71046; 71275; 74177; G0378 ×3; J1644 ×2; J1940; Q9967 ×2

== ENCOUNTER → 2019-12-26 | Outpatient (CLI) | payer MEDICARE ==
--- NOTE | 2019-12-27 09:32 | MM ---
Reason for exam: screening (asymptomatic). Last mammogram was performed 2 years ago. History: Patient is postmenopausal and history of other cancer. Physical Findings: A clinical breast exam by your physician is recommended on an annual basis and results should be correlated with mammographic findings. MG 3D Screening Mammo W/Cad Bilateral CC and MLO view(s) were taken. Prior study comparison: December 15, 2017, bilateral MG 3d screening mammo w/cad. June 24, 2016, bilateral MG 3d screening mammo w/cad. The breast tissue is heterogeneously dense. This may lower the sensitivity of mammography. No significant changes when compared with prior studies. ASSESSMENT: Negative, BI-RAD 1 RECOMMENDATION: Routine screening mammogram of both breasts in 1 year.
--- NOTE | 2019-12-27 15:44 | BD ---
EXAMINATION TYPE: Axial Bone Density DATE OF EXAM: 12/26/2019 COMPARISON: NONE CLINICAL HISTORY: 74-year-old female postmenopausal screening Height: 62.5 IN Weight: 177 LBS FRAX RISK QUESTIONS: Secondary Osteoporosis: 3. Menopause before 45: PARTIAL HYST AGE 34 RISK FACTORS HISTORY OF: Active: MODERATE Postmenopausal woman: PARTIAL HYST AGE 34 Take estrogen and/or progesterone medications: NOT NOW How lon YEARS Lost more than 2 inches in height since high school: YES 4 06/09 " MEDICATIONS: Additional Medications: VIT D3, HEART MEDS, BLOOD THINNERS, CHOLESTEROL, BLOOD PRESSURE , PAIN MEDS, ANXIETY MED Additional History: LUNG CANCER 2011 EXAM MEASUREMENTS: Bone mineral densitometry was performed using the VTM System. Bone mineral density as measured about the Lumbar spine is: PT HAS A NEURO STIMULATOR. ----- L1-L4(G/cm2): 1.431 T Score Values are as follows: ----- L2: 3.1 ----- L3: 2.1 ----- L4: 2.6 ----- L1-L4: 2.1 Bone mineral density BASELINE Bone mineral density about the R hip (g/cm2): 0.843 Bone mineral density about the L hip (g/cm2): 0.814 T Score values are as follows: -----R Neck: -1.4 -----L Neck: -1.6 -----R Total: -1.1 -----L Total: -1.0 Bone mineral density BASELINE IMPRESSION: Osteopenia (T Score between -2.5 and -1). There is slightly increased risk of fracture and the patient may be considered for treatment. Re-Screen 2-5 years. NOTE: T-SCORE=SD OF THE YOUNG ADULT MEAN.
== END | disposition home or self-care (01) ==
LOC: RADMAMWWP 14:41
PROVIDERS: ATTEND Internal Medicine
DX: Z12.31 Encounter for screening mammogram for malignant neoplasm of breast (principal); M89.9 Disorder of bone, unspecified; M85.89 Other specified disorders of bone density and structure, multiple sites
CPT/HCPCS: 77063; 77067; 77080

== ENCOUNTER 2020-07-21 07:49 | Inpatient (IN) | payer MEDICARE ==
--- NOTE | 2020-07-21 08:01 | ED ---
Chest Pain HPI - General Stated Complaint: CHF Time Seen by Provider: 07/21/20 07:54 Source: patient, RN/MD, EMS, RN notes reviewed Mode of arrival: EMS - History of Present Illness Initial Comments: This is a 75-year-old female history of CHF COPD history of NV in the past history of lung cancer among other medical issues who was brought to this emergency department by EMS from [facility] where she presented last night with chest pain and shortness of breath she was found have evidence of CHF and 79 and STEMI. She states she is pain-free at this time in her breathing is about per usual no fevers chills nausea vomiting sweats. She was transferred here for further evaluation and treatment. Please see the charting presented from the sending facility. MD Complaint: chest pain, other - Related Data Home Medications Medication Instructions Recorded Confirmed ALPRAZolam [Xanax] 0.25 mg PO BID 04/02/18 03/19/19 Aspirin EC [Ecotrin Low Dose] 81 mg PO DAILY 04/02/18 03/19/19 Atorvastatin [Lipitor] 80 mg PO HS 04/02/18 03/19/19 Cholecalciferol [Vitamin D3 (25 1,000 unit PO DAILY 04/02/18 03/19/19 Mcg = 1000 Iu)] Clopidogrel [Plavix] 75 mg PO DAILY 04/02/18 03/19/19 Ezetimibe [Zetia] 10 mg PO HS 04/02/18 03/19/19 HYDROcodone/APAP 5-325MG [Halma 1 tab PO TID 04/02/18 03/19/19 5-325] Sertraline [Zoloft] 100 mg PO DAILY 04/02/18 03/19/19 Zolpidem [Ambien] 10 mg PO HS 04/02/18 03/19/19 cilostazoL [Pletal] 100 mg PO BID 04/02/18 03/19/19 Carvedilol [Coreg] 12.5 mg PO BID 03/19/19 03/19/19 Losartan [Cozaar] 25 mg PO DAILY 03/19/19 03/19/19 Previous Rx's Medication Instructions Recorded Capsaicin Cream [Trixaicin Cream] 1 applic TOPICAL BID #1 tube 03/21/19 Furosemide [Lasix] 20 mg PO DAILY #10 tab 03/21/19 Allergies Allergy/AdvReac Type Severity Reaction Status Date / Time Penicillins Allergy Rash/Hives, Verified 03/19/19 08:19 LOC Review of Systems ROS Statement: Those systems with pertinent positive or pertinent negative responses have been documented in the HPI. ROS Other: All systems not noted in ROS Statement are negative. EKG Findings - EKG Results: EKG: interpreted by PRINCESS (sinus rhythm rate is 72. Interval 194 QRS duration 106 QT/QTC 454/497 right. [place] nonspecific T-wave configuration PVC noted. This is consistent with the one sent from [facility].) Past Medical History Past Medical History: Cancer, COPD, Hyperlipidemia, Hypertension, Myocardial Infarction ([place]), Osteoarthritis (OA), Vascular Disorder Additional Past Medical History / Comment(s): hx. lung cancer 6 yrs. ago, hx. colon polyps, frequent lower side pain, urinary frequency, PAD Last Myocardial Infarction Date:: unknown History of Any Multi-Drug Resistant Organisms: None Reported Past Surgical History: Heart Catheterization With Stent, Hysterectomy Additional Past Surgical History / Comment(s): right lower lobectomy, colonoscopies, stenting,angioplasty lower legs Past Anesthesia/Blood Transfusion Reactions: No Reported Reaction Date of Last Stent Placement:: 2004 Past Psychological History: Anxiety, Depression Past Alcohol Use History: None Reported Additional Past Alcohol Use History / Comment(s): quit smoking 2011, 1ppd since teens, doesn't drink much anymore Past Drug Use History: None Reported - Past Family History Mother Family Medical History: Cancer Additional Family Medical History / Comment(s): colon General Exam - General Exam Comments Initial Comments: this is a well-developed well-nourished awake alert oriented 3 female General appearance: alert, in no apparent distress Head exam: Present: atraumatic, normocephalic, normal inspection Eye exam: Present: normal appearance, PERRL, EOMI. Absent: scleral icterus, conjunctival injection, periorbital swelling ENT exam: Present: mucous membranes dry Neck exam: Present: normal inspection. Absent: tenderness, meningismus, lymphadenopathy Respiratory exam: Present: normal lung sounds bilaterally. Absent: respiratory distress, wheezes, rales, rhonchi, stridor Cardiovascular Exam: Present: regular rate, normal rhythm, normal heart sounds. Absent: systolic murmur, diastolic murmur, rubs, gallop, clicks GI/Abdominal exam: Present: soft, normal bowel sounds. Absent: distended, tenderness, guarding, rebound, rigid Extremities exam: Present: normal inspection, full ROM, normal capillary refill. Absent: tenderness, pedal edema, joint swelling, calf tenderness Back exam: Present: normal inspection Neurological exam: Present: alert, oriented X3, CN II-XII intact Psychiatric exam: Present: normal affect, normal mood Skin exam: Present: warm, dry, intact, normal color. Absent: rash Course Vital Signs 07/21/20 07/21/20 07:56 08:09 Temperature 98 F Pulse Rate 72 Respiratory 18 18 Rate Blood Pressure 204/112 O2 Sat by Pulse 96 Oximetry Chest Pain MDM - MDM I did review the chart was present from the sending facility. Patient currently pain free also she is currently lung sounds are blood pressure was elevated though she did not take her medications last night to be given then this morning she will be admitted for evaluation inpatient. Case is discussed Dr. Shahid Disposition Clinical Impression: Congestive heart failure, Unstable angina, Chest pain Disposition: ADMITTED IP TO THIS HOSP Condition: Fair Referrals: Derrick Neal MD [Primary Care Provider] - 1-2 days
[2020-07-21] MEDS ORDERED: amLODIPine 5 MG TAB PO STA ×2 (08:11→12:29)
[2020-07-21] MEDS ORDERED: LOSARTAN 25 MG TAB PO STA ×2 (08:12→12:29)
[2020-07-21] MEDS: FUROSEMIDE 10 MG/ML 4 ML VIAL IV SCH ×3 (08:35→23:20)
[2020-07-21] MEDS: SODIUM CHLORIDE 0.9% 1,000 ML IV SCH (08:35)
[2020-07-21] MEDS ORDERED: FUROSEMIDE 20 MG TAB PO SCH (09:00)
[2020-07-21] MEDS: CAPSAICIN 0.025% CREAM 60 GM TUBE TOPICAL SCH ×2 (09:53→20:02)
[2020-07-21] MEDS: cilostazoL 100 MG TAB PO SCH ×2 (09:53→20:40)
[2020-07-21] MEDS: ALPRAZolam 0.25 MG TAB PO SCH ×2 (09:53→20:02)
[2020-07-21] MEDS: carvediloL 12.5 MG TAB PO SCH ×2 (09:53→17:31)
[2020-07-21] MEDS: SERTRALINE 100 MG TAB PO SCH (09:53)
[2020-07-21] MEDS: CHOLECALCIFEROL 25 MCG (1000 IU) TABLET PO SCH (09:53)
[2020-07-21] MEDS: HYDROcodone/APAP 5-325MG 1 EACH TAB PO SCH ×3 (09:53→23:20)
[2020-07-21] MEDS: CLOPIDOGREL 75 MG TAB PO SCH (09:53)
--- NOTE | 2020-07-21 11:49 | P.CRDCN ---
History of Present Illness Consult date: 07/21/20 Requesting physician: Navi Shahid Reason for Consult (text): chest pain, chf Chief complaint: chest pain History of present illness: A pleasant 75-year-old female patient with a past medical history of hypertension, hyperlipidemia, CAD with prior OH and stenting about 16 years ago for which the details are not available at this time, peripheral vascular disease, ex-smoker quit in 2011 and history of lung CA about 6 years ago. She follows with Dr. Metcalf out of [place] in [place]. Presented to the emergency department at [facility] with complaints of midsternal chest discomfort radiating to her back and down bilateral arms as well as some nausea that lasted about 45 minutes. The discomfort occurred while she was lying in bed reading. She does not have nitroglycerin at home. She said the pain was relieved after getting Lasix in the emergency department. Laboratory values at [facility] showed normal renal function, NT proBNP of 1100 and troponins of less than 0.012, 0.029, 0.041 and 0.040 with a repeat upon presentation here of 0.018. She does feel that this discomfort was similar to what she experienced with her OH many years ago. EKG upon arrival to [facility] showed sinus rhythm with nonspecific ST-T wave abnormalities but no evidence of acute ischemia. Upon examination patient is sitting up the side of the bed drinking some orange juice and coffee with no complaints of chest discomfort. She is currently on aspirin, Lipitor, carvedilol, Pletal, Plavix, that he had, Lasix IV push 40 mg every 8 hours, losartan 25 mg by mouth daily, Zoloft and Ambien as needed. She is on amlodipine at home for blood pressure and she was given one dose this morning. Past Medical History Past Medical History: Cancer, Chest Pain / Angina, Heart Failure, COPD, Hyperlipidemia, Hypertension, Myocardial Infarction ([place]), Osteoarthritis (OA), Vascular Disorder Additional Past Medical History / Comment(s): hx. lung cancer 6 yrs. ago, hx. colon polyps, frequent lower side pain, urinary frequency, PAD Last Myocardial Infarction Date:: unknown History of Any Multi-Drug Resistant Organisms: None Reported Past Surgical History: Heart Catheterization With Stent, Hysterectomy Additional Past Surgical History / Comment(s): right lower lobectomy, colonoscopies, stenting,angioplasty lower legs Past Anesthesia/Blood Transfusion Reactions: No Reported Reaction Date of Last Stent Placement:: 2004 Past Psychological History: Anxiety, Depression Smoking Status: Former smoker Past Alcohol Use History: None Reported Additional Past Alcohol Use History / Comment(s): quit smoking 2011, 1ppd since teens, doesn't drink much anymore Past Drug Use History: None Reported - Past Family History Mother Family Medical History: Cancer Additional Family Medical History / Comment(s): colon Medications and Allergies Home Medications Medication Instructions Recorded Confirmed Type ALPRAZolam [Xanax] 0.25 mg PO BID 04/02/18 07/21/20 History Aspirin EC [Ecotrin Low Dose] 81 mg PO HS 04/02/18 07/21/20 History Atorvastatin [Lipitor] 80 mg PO HS 04/02/18 07/21/20 History Cholecalciferol [Vitamin D3 (25 1,000 unit PO HS 04/02/18 07/21/20 History Mcg = 1000 Iu)] Clopidogrel [Plavix] 75 mg PO HS 04/02/18 07/21/20 History Ezetimibe [Zetia] 10 mg PO HS 04/02/18 07/21/20 History HYDROcodone/APAP 5-325MG [[place] 1 tab PO TID 04/02/18 07/21/20 History 5-325] Sertraline [Zoloft] 100 mg PO HS 04/02/18 07/21/20 History cilostazoL [Pletal] 100 mg PO BID 04/02/18 07/21/20 History Carvedilol [Coreg] 12.5 mg PO BID 03/19/19 07/21/20 History Losartan [Cozaar] 25 mg PO HS 03/19/19 07/21/20 History Cyclobenzaprine [Flexeril] 10 mg PO BID PRN 07/21/20 07/21/20 History Gabapentin [Neurontin] 300 mg PO BID 07/21/20 07/21/20 History Ibuprofen [Motrin] 800 mg PO Q12H PRN 07/21/20 07/21/20 History amLODIPine [Norvasc] 5 mg PO DAILY 07/21/20 07/21/20 History traZODone HCL 100 mg PO HS 07/21/20 07/21/20 History Allergies Allergy/AdvReac Type Severity Reaction Status Date / Time Penicillins AdvReac Rash/Hives, Verified 07/21/20 09:44 LOC zolpidem [From Ambien] AdvReac Hallucinati Verified 07/21/20 09:44 ons Physical Exam Vitals: Vital Signs Temp Pulse Pulse Resp BP BP Pulse Ox 07/21/20 10:09 98.4 F 87 16 158/74 98 07/21/20 09:27 98 F 71 18 152/93 96 07/21/20 09:04 71 18 152/93 96 07/21/20 08:09 18 07/21/20 07:56 98 F 72 18 204/112 96 Intake and Output 07/20/20 07/21/20 07/21/20 22:59 06:59 14:59 Other: Voiding Method Toilet # Voids 1 Weight 83.461 kg PHYSICAL EXAMINATION: This is a 75-year-old female in no apparent distress at the time of my examination. VITAL SIGNS: Blood pressure 158/74, heart rate 87, respirations 18, temp 98.4F. Patient is 98 % on room air. HEENT: Head is atraumatic, normocephalic. Pupils are equal, round. Sclerae anicteric. Conjunctivae are clear. Mucous membranes of the mouth are moist. Neck is supple. There is no elevated jugular venous pressure. No carotid bruit is heard. CHEST EXAMINATION: Clear to auscultation bilaterally. No wheezes rales or rhonchi. Respirations even and nonlabored. HEART EXAMINATION: Heart regular, positive S1 and S2 with a soft systolic murmur. ABDOMEN: Soft, nontender. Bowel sounds are heard. No organomegaly noted. EXTREMITIES: 1+ peripheral pulses with no evidence of peripheral edema and no calf tenderness noted. NEUROLOGIC EXAMINATION: Patient is awake, alert and oriented x3. Results Cardiac Enzymes 07/21/20 Range/Units 08:42 Troponin I 0.018 (0.000-0.034) ng/mL Current Medications Generic Name Dose Route Start Last Admin Trade Name Freq PRN Reason Stop Dose Admin Hydrocodone Bitart/Acetaminophen 1 each 07/21/20 09:00 07/21/20 09:53 Hydrocodone/Apap 5-325mg 1 Each Tab PO Not Given TID INÉS Alprazolam 0.25 mg 07/21/20 09:00 07/21/20 09:53 Alprazolam 0.25 Mg Tab PO Not Given BID [facility] Aspirin 325 mg 07/22/20 09:00 Aspirin 325 Mg Tab PO DAILY [facility] Atorvastatin Calcium 80 mg 07/21/20 21:00 Atorvastatin 80 Mg Tab PO HS [facility] Capsaicin 1 applic 07/21/20 09:00 07/21/20 09:53 Capsaicin 0.025% Cream 60 Gm Tube TOPICAL Not Given BID [facility] Carvedilol 12.5 mg 07/21/20 09:00 07/21/20 09:53 Carvedilol 12.5 Mg Tab PO Not Given BID-W/MEALS [facility] Cholecalciferol 25 mcg 07/21/20 09:00 07/21/20 09:53 Cholecalciferol 25 Mcg (1000 Iu) Tablet PO Not Given DAILY [facility] Cilostazol 100 mg 07/21/20 09:00 07/21/20 09:53 Cilostazol 100 Mg Tab PO Not Given BID [facility] Clopidogrel Bisulfate 75 mg 07/21/20 09:00 07/21/20 09:53 Clopidogrel 75 Mg Tab PO Not Given DAILY [facility] Ezetimibe 10 mg 07/21/20 21:00 Ezetimibe 10 Mg Tab PO HS [facility] Furosemide 40 mg 07/21/20 08:30 07/21/20 08:35 Furosemide 10 Mg/Ml 4 Ml Vial IV 40 mg Q8HR INÉS Administration Sodium Chloride 1,000 mls @ 20 mls/hr 07/21/20 08:30 07/21/20 08:35 Saline 0.9% IV 20 mls/hr .Q24H INÉS Administration Losartan Potassium 25 mg 07/22/20 09:00 Losartan 25 Mg Tab PO DAILY [facility] Sertraline HCl 100 mg 07/21/20 09:00 07/21/20 09:53 Sertraline 100 Mg Tab PO Not Given DAILY [facility] Zolpidem Tartrate 10 mg 07/21/20 21:00 Zolpidem 10 Mg Tab PO HS [facility] Intake and Output 07/20/20 07/21/20 07/21/20 22:59 06:59 14:59 Other: Voiding Method Toilet # Voids 1 Weight 83.461 kg Patient Weight 07/22/20 06:59 Weight 83.461 kg Assessment and Plan Assessment: #1 unstable angina #2 history of CAD with prior OH and stenting about 15-16 years ago #3 hypertension #4 evidence of mild CHF with an anterior proBNP of 1100, likely diastolic, improved with IV Lasix given at [facility] #5 hyperlipidemia #6 PAD #7 history of prior nicotine dependence #8 history of lung cancer Plan: From cardiology's perspective will resume home dose of amlodipine. We will follow the blood pressure and if it remains poorly controlled will increase losartan. We'll attempt to obtain records from her diesel retrofit installer. We'll obtain a 2-D echo with Doppler study to assess cardiac structure and function. We'll continue to follow the patient and provide further recommendations depending on her clinical course and diagnostic findings. The above dictated assessment and findings were discussed with signing physician. The impression and plan of care have been directed as dictated. Mariluz Martínez, Nurse Practitioner, acting as scribe for signing physician.
[2020-07-21] MEDS: NITROGLYCERIN OINT 1 INCH/GM PACKET TOPICAL SCH ×2 (17:31→23:20)
[2020-07-21] MEDS: ATORVASTATIN 80 MG TAB PO SCH (20:02)
[2020-07-21] MEDS: EZETIMIBE 10 MG TAB PO SCH (20:40)
[2020-07-21] MEDS ORDERED: ZOLPIDEM 10 MG TAB PO SCH (21:00)
--- NOTE | 2020-07-21 21:32 | P.HPIM ---
History of Present Illness H&P Date: 07/21/20 Chief Complaint: Chest pain History of presenting complaint: This is a pleasant 75-year-old patient of Dr. Derrick Neal. Chronic stable medical conditions include COPD, hyperlipidemia, hypertension, ostial arthritis, lung cancer 6 years ago, peripheral artery disease, coronary artery stent, peripheral stents, anxiety depression. Patient presented after she was having central chest pressure at home then went to both the shoulder blades for the arms. Patient became nauseated. No dizziness or lightheadedness. She shortness of breath. No perspiration. Symptoms most lost about 40 minutes she was taken to [facility]. She was similar episode about 2 weeks ago. Transferred down here. Has some lower extremity edema Review of systems: GEN.: Tired EYES: None HEENT: None NECK: None RESPIRATORY: As above CARDIOVASCULAR: As above GASTROINTESTINAL: None GENITOURINARY: None MUSCULOSKELETAL: Joint pains LYMPHATICS: None HEMATOLOGICAL: None PSYCHIATRY: None NEUROLOGICAL: None Past medical history to include: CHF, COPD, hyperlipidemia, hypertension, coronary artery disease with stent, osteoporosis, lung cancer 6 years ago, peripheral arterial disease, anxiety depression Social history: Lives with her son. Smoked a pack a day since the teenage years. Stop in 2011. Some alcohol in the past Physical examination: VITAL SIGNS: 98, 72, 18, 152/93, 96% room air-on presentation GENERAL: BMI 29.7, reclining in bed, awake . EYES: Pupils equal. Conjunctiva normal. HEENT: External appearance of nose and ears normal, oral cavity grossly normal. NECK: JVD unable to assess; masses not palpable. HEART: First and second heart sounds are normal; mild edema. LUNGS: Respiratory rate increased; decreased breath sounds. ABDOMEN: Soft, nontender, liver spleen not palpable, no masses palpable. PSYCH: Alert and oriented x3; mood and affect normal. MUSCULOSKELETAL: Evidence of OA NEUROLOGICAL: Cranial nerves grossly intact; no facial asymmetry, power and sensation grossly intact. LYMPHATICS: No lymph nodes palpable in the axilla and neck Investigations: Troponin I 0.018, 0.012 Coronavirus [PCR]-not detected EKG tracing personally reviewed by me-normal sinus rhythm, PVC Assessment and plan: -Unstable angina, serial cardiac enzymes were done. Cardiology consulted on Nitropaste ointment -Acute on chronic congestive heart failure-EF not known. On IV Lasix -COPD in a previous smoker -Hyperlipidemia, continue Lipitor -Essential hypertension, on Norvasc Coreg Cozaar -Primary osteoarthritis, take Tylenol when necessary -History of lung cancer 6 years ago -Peripheral arterial disease with stenting, on aspirin and Plavix -Coronary artery disease with prior history of stent, on aspirin and Plavix Lipitor Norvasc beta tran -Anxiety depression otherwise specified-on Zoloft -Chronic insomnia continue with melatonin Past Medical History Past Medical History: Cancer, Chest Pain / Angina, Heart Failure, COPD, Hyperlipidemia, Hypertension, Myocardial Infarction (HI), Osteoarthritis (OA), Vascular Disorder Additional Past Medical History / Comment(s): hx. lung cancer 6 yrs. ago, hx. colon polyps, frequent lower side pain, urinary frequency, PAD Last Myocardial Infarction Date:: unknown History of Any Multi-Drug Resistant Organisms: None Reported Past Surgical History: Heart Catheterization With Stent, Hysterectomy Additional Past Surgical History / Comment(s): right lower lobectomy, colonoscopies, stenting,angioplasty lower legs Past Anesthesia/Blood Transfusion Reactions: No Reported Reaction Date of Last Stent Placement:: 2004 Past Psychological History: Anxiety, Depression Smoking Status: Former smoker Past Alcohol Use History: None Reported Additional Past Alcohol Use History / Comment(s): quit smoking 2011, 1ppd since teens, doesn't drink much anymore Past Drug Use History: None Reported - Past Family History Mother Family Medical History: Cancer Additional Family Medical History / Comment(s): colon Medications and Allergies Home Medications Medication Instructions Recorded Confirmed Type ALPRAZolam [Xanax] 0.25 mg PO BID 04/02/18 07/21/20 History Aspirin EC [Ecotrin Low Dose] 81 mg PO HS 04/02/18 07/21/20 History Atorvastatin [Lipitor] 80 mg PO HS 04/02/18 07/21/20 History Cholecalciferol [Vitamin D3 (25 1,000 unit PO HS 04/02/18 07/21/20 History Mcg = 1000 Iu)] Clopidogrel [Plavix] 75 mg PO HS 04/02/18 07/21/20 History Ezetimibe [Zetia] 10 mg PO HS 04/02/18 07/21/20 History HYDROcodone/APAP 5-325MG [[place] 1 tab PO TID 04/02/18 07/21/20 History 5-325] Sertraline [Zoloft] 100 mg PO HS 04/02/18 07/21/20 History cilostazoL [Pletal] 100 mg PO BID 04/02/18 07/21/20 History Carvedilol [Coreg] 12.5 mg PO BID 03/19/19 07/21/20 History Losartan [Cozaar] 25 mg PO HS 03/19/19 07/21/20 History Cyclobenzaprine [Flexeril] 10 mg PO BID PRN 07/21/20 07/21/20 History Gabapentin [Neurontin] 300 mg PO BID 07/21/20 07/21/20 History Ibuprofen [Motrin] 800 mg PO Q12H PRN 07/21/20 07/21/20 History amLODIPine [Norvasc] 5 mg PO DAILY 07/21/20 07/21/20 History traZODone HCL 100 mg PO HS 07/21/20 07/21/20 History Allergies Allergy/AdvReac Type Severity Reaction Status Date / Time Penicillins AdvReac Rash/Hives, Verified 07/21/20 09:44 LOC zolpidem [From Ambien] AdvReac Hallucinati Verified 07/21/20 09:44 ons Physical Exam Vitals: Vital Signs Temp Pulse Pulse Resp BP BP Pulse Ox 07/21/20 10:09 98.4 F 87 16 158/74 98 07/21/20 09:27 98 F 71 18 152/93 96 07/21/20 09:04 71 18 152/93 96 07/21/20 08:09 18 07/21/20 07:56 98 F 72 18 204/112 96 Intake and Output 07/20/20 07/21/20 07/21/20 22:59 06:59 14:59 Other: Voiding Method Toilet # Voids 1 Weight 83.461 kg Thrombosis Risk Factor Assmnt - Choose All That Apply Each Factor Represents 1 point: Heart failure (<1month) Each Risk Factor Represents 3 Points: Age 75 years or older Thrombosis Risk Factor Assessment Total Risk Factor Score: 4 Thrombosis Risk Factor Assessment Level: Moderate Risk
[2020-07-22 06:12] LABS: Calcium 9.4 mg/dL (8.4-10.2); Potassium 4.1 mmol/L (3.5-5.1)
[2020-07-22] MEDS: carvediloL 12.5 MG TAB PO SCH ×2 (06:53→17:38)
--- NOTE | 2020-07-22 07:50 | XR ---
EXAMINATION TYPE: XR chest 2V DATE OF EXAM: 07/22/2020 COMPARISON: 07/20/2020 TECHNIQUE: PA and lateral views submitted. HISTORY: Abnormal FINDINGS: Right lower lobe infiltrate and small effusion stable. There is a catheter overlying the thoracic spi ne region scoliosis. No pneumothorax. Heart size stable with no overt failure. Hypertrophic and degen erative changes spine. IMPRESSION: 1. Right lower lobe infiltrate and small pleural effusion.
[2020-07-22] MEDS: NITROGLYCERIN OINT 1 INCH/GM PACKET TOPICAL SCH ×2 (08:58→17:36)
[2020-07-22] MEDS ORDERED: LOSARTAN 25 MG TAB PO SCH (09:00)
[2020-07-22] MEDS ORDERED: ASPIRIN 325 MG TAB PO SCH (09:00)
[2020-07-22] MEDS: CHOLECALCIFEROL 25 MCG (1000 IU) TABLET PO SCH (10:41)
[2020-07-22] MEDS: amLODIPine 10 MG TAB PO SCH (10:41)
[2020-07-22] MEDS: cilostazoL 100 MG TAB PO SCH (10:42)
[2020-07-22] MEDS: ALPRAZolam 0.25 MG TAB PO SCH ×2 (10:42→22:35)
[2020-07-22] MEDS: CAPSAICIN 0.025% CREAM 60 GM TUBE TOPICAL SCH (10:42)
[2020-07-22] MEDS: SERTRALINE 100 MG TAB PO SCH (10:42)
[2020-07-22] MEDS: LOSARTAN 50 MG TAB PO SCH (10:43)
[2020-07-22] MEDS: CLOPIDOGREL 75 MG TAB PO SCH (10:43)
[2020-07-22] MEDS: HYDROcodone/APAP 5-325MG 1 EACH TAB PO SCH ×2 (10:43→17:43)
[2020-07-22] MEDS: FUROSEMIDE 10 MG/ML 4 ML VIAL IV SCH (10:43)
[2020-07-22] MEDS: SODIUM CHLORIDE 0.9% 1,000 ML IV SCH (10:53)
--- NOTE | 2020-07-22 12:04 | ECHOF ---
Referral Reason:chest pain MEASUREMENTS -------- HEIGHT: 167.6 cm WEIGHT: 83.5 kg BP: 158/74 RVIDd: 3.3 cm (< 3.3) IVSd: 1.6 cm (0.6 - 1.1) LVIDd: 4.4 cm (3.9 - 5.3) LVPWd: 1.4 cm (0.6 - 1.1) IVSs: 2.3 cm LVIDs: 3.1 cm LVPWs: 2.1 cm LA Diam: 3.8 cm (2.7 - 3.8) Ao Diam: 3.1 cm (2.0 - 3.7) AV Cusp: 2.0 cm (1.5 - 2.6) MV EXCURSION: 13.883 mm (> 18.000) MV EF SLOPE: 32 mm/s (70 - 150) EPSS: 1.4 cm MV E Kirt: 0.76 m/s MV DecT: 288 ms MV A Kirt: 1.07 m/s MV E/A Ratio: 0.71 AV maxP.69 mmHg AV meanP.13 mmHg FINDINGS -------- This was a technically adequate study. The left ventricular size is normal. There is moderate concentric left ventricular hypertrophy. O verall left ventricular systolic function is low-normal with, an EF between 50 - 55 %. Basal inferi or LV wall motion is hypokinetic. Basal inferoseptal LV wall motion is hypokinetic. The right ventricle is mildly enlarged. The left atrium is normal in size. The right atrium is normal in size. Interatrial and interventricular septum intact. There is mild aortic valve sclerosis. Peak/mean gradient across the Aortic Valve is 10.69mmHg / 5.1 3mmHg. The mitral valve leaflets are mildly thickened. Mild mitral annular calcification present. The tricuspid valve appears structurally normal. Trace/mild (physiologic) pulmonic regurgitation. The aortic root size is normal. Normal inferior vena cava with normal inspiratory collapse consistent with estimated right atrial pre ssure of 5 mmHg. There is no pericardial effusion. CONCLUSIONS -------- 1. The left ventricular size is normal. 2. There is moderate concentric left ventricular hypertrophy. 3. Overall left ventricular systolic function is low-normal with, an EF between 50 - 55 %. 4. Basal inferior LV wall motion is hypokinetic. 5. Basal inferoseptal LV wall motion is hypokinetic. 6. The right ventricle is mildly enlarged. 7. There is mild aortic valve sclerosis. 8. Peak/mean gradient across the Aortic Valve is 10.69mmHg / 5.13mmHg. 9. The mitral valve leaflets are mildly thickened. 10. Mild mitral annular calcification present. 11. Trace/mild (physiologic) pulmonic regurgitation. 12. There is no pericardial effusion. [employer]: Leighann Pantoja RDCS
[2020-07-22] MEDS ORDERED: NITROGLYCERIN SL TABS 0.4 MG TAB SUBLINGUAL PRN (12:50)
[2020-07-22] MEDS ORDERED: ALPRAZolam 0.25 MG TAB PO PRN (12:50)
[2020-07-22] MEDS ORDERED: SODIUM CHLORIDE 0.9% 1,000 ML in EMPTY BAG 1 BAG IV ONE (12:50)
[2020-07-22] MEDS ORDERED: ATORVASTATIN 80 MG TAB PO STA (12:50)
[2020-07-22] MEDS ORDERED: ALPRAZolam 0.5 MG TAB PO PRN (12:50)
[2020-07-22] MEDS ORDERED: LIDOCAINE 1% INJ 10MG/ML (20 ML MDV) ONE (13:01)
[2020-07-22] MEDS ORDERED: IV FLUID CONTINUATION 1,000 ML IV ONE (13:20)
[2020-07-22] MEDS ORDERED: HEPARIN SODIUM 1,000 UN/ML (10ML VL) ONE (13:22)
[2020-07-22] MEDS ORDERED: VERAPAMIL 2.5 MG/ML 2 ML AMP ONE (13:22)
[2020-07-22] MEDS ORDERED: fentaNYL (PF) 50 MCG/ML 2 ML AMP ONE (13:22)
[2020-07-22] MEDS ORDERED: fentaNYL (PF) 50 MCG/ML 2 ML AMP IV ONE (13:28)
[2020-07-22] MEDS: MIDAZOLAM 2 MG/2 ML VIAL IV ONE ×2 (13:30→13:34)
[2020-07-22] MEDS ORDERED: LIDOCAINE 1% INJ 10MG/ML (20 ML MDV) SQ ONE (13:31)
[2020-07-22] MEDS ORDERED: VERAPAMIL SYRINGE (5 MG/10 ML) INTRAARTER ONE (13:34)
[2020-07-22] MEDS ORDERED: HEPARIN SODIUM 1,000 UN/ML (10ML VL) IV ONE (13:43)
[2020-07-22] MEDS ORDERED: IOPAMIDOL-370 125ML BTL INJ ONE (13:49)
[2020-07-22] MEDS ORDERED: RX INFO: IV CONTRAST WAS GIVEN 1 EACH MISC MISCELLANE PRN (14:00)
[2020-07-22] MEDS ORDERED: SODIUM CHLORIDE 0.9% 1,000 ML IV SCH (14:00)
--- NOTE | 2020-07-22 19:40 | CC ---
CARDIAC CATHETERIZATION REPORT Mrs. Arguello is a 75-year-old female with known history of peripheral vascular disease, history of coronary artery disease who was transferred from [facility] with symptoms of chest discomfort, dyspnea, and mild troponin elevation. She was evaluated by Dr. Arriaga. Recommendation made regarding cardiac catheterization. The procedures, risks, and complications were discussed with the patient who is in full understanding and agreement. PROCEDURE DETAILS: Patient was brought to [facility] in a fasting semisedated state after receiving fentanyl and Benadryl and achieving moderate conscious sedated state. Using Xylocaine anesthesia and Seldinger technique, a 6-Serbian sheath was introduced in the right radial artery. Selective right and left coronary angiography performed using 5-Serbian 3.5 bend left Misti and a 6-Serbian AL 0.75 guiding catheter. Attempt to cannulate the right coronary artery using a 5 Serbian 3.5 right Misti were unsuccessful. Multiple views of the coronary artery including hemiaxial views were obtained. Following that, a 5-Serbian tight pigtail catheter was introduced into the left ventricle and pressures were calculated. Following that, catheter and sheath were removed. Hemostasis was obtained with deployment of a TR band. There was no immediate complication. Patient was returned to her room in stable condition. Of note, the patient received 4000 units of intravenous heparin as well as intra-arterial verapamil. FINDINGS: FLUOROSCOPY: There was severe calcification involving all the coronary arteries to a severe degree. LEFT MAIN: This is a large-sized vessel, bifurcating into left circumflex, left anterior descending artery. The left main coronary artery has an 85% stenosis prior to the first septal perforators. Subsequently gives rise to a large diagonal branch. After the takeoff of the diagonal branch, there is a long tubular lesion up to 90%. The rest of the vessel has no high-grade stenosis. LEFT CIRCUMFLEX: This is a nondominant vessel giving rise to 2 obtuse marginal branches. The first obtuse marginal branch has a 70%-80% stenosis proximally. The rest of the vessel has no high-grade stenosis. RIGHT CORONARY ARTERY: This is a large dominant vessel bifurcating into PDA and posterolateral segment and branches. The stented segment in the proximal and mid right coronary artery has diffuse in-stent restenosis up to 99%. There is a diffuse intimal disease with area of stenosis up to 90% prior to the bifurcation. Beyond the bifurcation, the PDA and PLV have no evidence of high-grade stenosis. LEFT VENTRICULOGRAM: Left ventriculogram was not performed. HEMODYNAMICS: There was no gradient across the aortic valve. The left ventricle end-diastolic pressure was 46 mmHg. CONCLUSION: 1. Severe calcification of the coronary arteries. 2. Severe triple-vessel coronary artery disease with significant disease in the proximal LAD, mid LAD, obtuse marginal branch and the right coronary artery in the long segment. 3. Normal left ventricular end-diastolic pressure. RECOMMENDATIONS: In view of findings and anatomy, I recommend proceeding with evaluation for coronary artery bypass grafting. The findings and recommendations were discussed with the patient and she is in full understanding and agreement. Duration of sedation is 20 minutes. MMODL / IJN: [id number] /
--- NOTE | 2020-07-22 21:08 | P.PN ---
Progress Note - Text Progress Note Date: 07/22/20 Chief Complaint: Chest pain History of presenting complaint: This is a pleasant 75-year-old patient of Dr. Derrick Neal. Chronic stable medical conditions include COPD, hyperlipidemia, hypertension, ostial arthritis, lung cancer 6 years ago, peripheral artery disease, coronary artery stent, peripheral stents, anxiety depression. Patient presented after she was having central chest pressure at home then went to both the shoulder blades for the arms. Patient became nauseated. No dizziness or lightheadedness. She shortness of breath. No perspiration. Symptoms most lost about 40 minutes she was taken to [facility]. She was similar episode about 2 weeks ago. Transferred down here. Has some lower extremity edema Admitted with unstable angina Today-underwent cardiac catheterization. Found to have severe triple-vessel coronary artery disease. Cardiothoracic consulted. Postprocedure laying in bed. Some of the bedside. Currently no chest pain. Review of systems: Was done for constitutional, cardiovascular, GI, pulmonary. relevant finding as above Active Medications Hydrocodone Bitart/Acetaminophen (Hydrocodone/Apap 5-325mg 1 Each Tab) 1 each PO TID [facility] Last Admin: 07/22/20 17:43 Dose: 1 each Documented by: Alprazolam (Alprazolam 0.25 Mg Tab) 0.25 mg PO BID [facility] Last Admin: 07/22/20 10:42 Dose: Not Given Documented by: Alprazolam (Alprazolam 0.25 Mg Tab) 0.25 mg PO Q6HR PRN PRN Reason: Mild Anxiety Alprazolam (Alprazolam 0.5 Mg Tab) 0.5 mg PO Q6HR PRN PRN Reason: Moderate Anxiety Amlodipine Besylate (Amlodipine 10 Mg Tab) 10 mg PO DAILY [facility] Last Admin: 07/22/20 10:41 Dose: 10 mg Documented by: Aspirin (Aspirin 81 Mg) 81 mg PO DAILY [facility] Atorvastatin Calcium (Atorvastatin 80 Mg Tab) 80 mg PO HS [facility] Last Admin: 07/21/20 20:02 Dose: 80 mg Documented by: Capsaicin (Capsaicin 0.025% Cream 60 Gm Tube) 1 applic TOPICAL BID [facility] Last Admin: 07/22/20 10:42 Dose: 1 applic Documented by: Carvedilol (Carvedilol 12.5 Mg Tab) 12.5 mg PO BID-W/MEALS [facility] Last Admin: 07/22/20 17:38 Dose: 12.5 mg Documented by: Cholecalciferol (Cholecalciferol 25 Mcg (1000 Iu) Tablet) 25 mcg PO DAILY [facility] Last Admin: 07/22/20 10:41 Dose: 25 mcg Documented by: Ezetimibe (Ezetimibe 10 Mg Tab) 10 mg PO HS [facility] Last Admin: 07/21/20 20:40 Dose: 10 mg Documented by: Sodium Chloride (Saline 0.9%) 1,000 mls @ 20 mls/hr IV .Q24H [facility] Last Admin: 07/22/20 10:53 Dose: Not Given Documented by: Sodium Chloride 1,000 ml/ IV (Solution) 1,000 mls @ 80.8 mls/hr IV .[id number] ONE Stop: 07/23/20 01:12 Last Admin: 07/22/20 13:14 Dose: 80.8 mls/hr Documented by: Heparin Sodium (Porcine) 10, (000 unit/ Sodium Chloride) 1,001 mls @ 999 mls/hr IRRIGATION ONCE PRN PRN Reason: INTRA-OP Stop: 07/23/20 23:00 Heparin Sodium (Porcine) 2,500 (unit/ Sodium Chloride) 250.5 mls @ 250 mls/hr IRRIGATION ONCE PRN PRN Reason: INTRA-OP Stop: 07/23/20 23:00 Losartan Potassium (Losartan 50 Mg Tab) 50 mg PO DAILY [facility] Last Admin: 07/22/20 10:43 Dose: 50 mg Documented by: Miscellaneous Information (Rx Info: Iv Contrast Was Given 1 Each Misc) 1 each MISCELLANE DAILY PRN PRN Reason: Per Protocol Stop: 07/24/20 14:00 Nitroglycerin (Nitroglycerin Oint 1 Inch/Gm Packet) 1 inch TOPICAL Q8HR [facility] Last Admin: 07/22/20 17:36 Dose: Not Given Documented by: Nitroglycerin (Nitroglycerin Sl Tabs 0.4 Mg Tab) 0.4 mg SUBLINGUAL Q5M PRN PRN Reason: Chest Pain Sertraline HCl (Sertraline 100 Mg Tab) 100 mg PO DAILY [facility] Last Admin: 07/22/20 10:42 Dose: 100 mg Documented by: Trazodone HCl (Trazodone Hcl 100 Mg Tab) 100 mg PO [facility] Past medical history to include: CHF, COPD, hyperlipidemia, hypertension, coronary artery disease with stent, osteoporosis, lung cancer 6 years ago, peripheral arterial disease, anxiety depression Social history: Lives with her son. Smoked a pack a day since the teenage years. Stop in 2011. Some alcohol in the past Physical examination: VITAL SIGNS: 98, 75, 18, 130/93, 90% on room air GENERAL: Laying in bed, comfortable. EYES: Pupils equal. Conjunctiva normal. HEENT: External appearance of nose and ears normal, oral cavity grossly normal. NECK: JVD unable to assess; masses not palpable. HEART: First and second heart sounds are normal; mild edema. LUNGS: Respiratory rate increased; decreased breath sounds. ABDOMEN: Soft, nontender, liver spleen not palpable, no masses palpable. PSYCH: Alert and oriented x3; mood and affect normal. MUSCULOSKELETAL: Evidence of OA Investigations: July 22: Potassium 4.1 creatinine 0.97 proBNP 1270 Cardiac hisczrzkwdrwfhy-cpfsse-oaurle disease 2-D echocardiogram-moderate concentric LVH, EF 50-55% hypokinetic galicia Troponin I 0.018, 0.012 Coronavirus [PCR]-not detected EKG tracing personally reviewed by me-normal sinus rhythm, PVC Assessment and plan: -Unstable angina, -Triple-vessel coronary artery disease on cardiac catheterization. Cardiothoracic surgery consulted. Continue with Norvasc aspirin Lipitor Coreg IV heparin -Acute on chronic congestive heart diastolic dysfunction EF 50-35% received IV Lasix -COPD in a previous smoker -Hyperlipidemia, continue Lipitor -Essential hypertension, on Norvasc Coreg Cozaar -Primary osteoarthritis, take Tylenol when necessary -History of lung cancer 6 years ago -Peripheral arterial disease with stenting, on aspirin and Plavix -Anxiety depression otherwise specified-on Zoloft -Chronic insomnia continue with melatonin Care was discussed with the patient. Cardiothoracic surgery consulted. Medications to continue.
[2020-07-22] MEDS: EZETIMIBE 10 MG TAB PO SCH (22:35)
[2020-07-22] MEDS: traZODone HCL 100 MG TAB PO SCH (22:35)
[2020-07-22] MEDS: ATORVASTATIN 80 MG TAB PO SCH (22:36)
[2020-07-23] MEDS: CAPSAICIN 0.025% CREAM 60 GM TUBE TOPICAL SCH ×3 (04:54→22:00)
[2020-07-23] MEDS: HYDROcodone/APAP 5-325MG 1 EACH TAB PO SCH ×3 (04:55→18:10)
[2020-07-23] MEDS: NITROGLYCERIN OINT 1 INCH/GM PACKET TOPICAL SCH ×3 (05:03→18:12)
[2020-07-23] MEDS: carvediloL 12.5 MG TAB PO SCH ×2 (06:54→18:10)
[2020-07-23] MEDS ORDERED: HEPARIN SODIUM,PORCINE 10,000 UNIT in SODIUM CHLORIDE 0.9% 1,000 ML IRRIGATION PRN (07:00)
[2020-07-23] MEDS ORDERED: HEPARIN SODIUM,PORCINE 2,500 UNIT in SODIUM CHLORIDE 0.9% 250 ML IRRIGATION PRN (07:00)
[2020-07-23 07:57] LABS: Basophils % (A) 1 %; Eosinophils # (A) 0.3 k/uL (0-0.7); Eosinophils % (A) 3 %; HCT 39.7 % (34.0-46.0); HGB 12.7 gm/dL (11.4-16.0); Lymphocytes # (A) 2.2 k/uL (1.0-4.8); Lymphocytes % (A) 27 %; MCH 28.9 pg (25.0-35.0); MCV 90.4 fL (80.0-100.0); Mean Platelet Volume 7.2; Monocytes # (A) 0.7 k/uL (0-1.0); Monocytes % (A) 8 %; Neutrophils # (A) 4.9 k/uL (1.3-7.7); Neutrophils % (A) 59 %; Platelet Count 370 k/uL (150-450); RDW 13.1 % (11.5-15.5); WBC 8.3 k/uL (3.8-10.6)
[2020-07-23 08:03] LABS: Partial Thromboplastin Time 22.2 sec (22.0-30.0); Prothrombin Time 10.3 sec (9.0-12.0)
[2020-07-23 08:09] LABS: Albumin 4.2 g/dL (3.5-5.0); Calcium 9.4 mg/dL (8.4-10.2); Magnesium 2.3 mg/dL (1.6-2.3); Potassium 3.7 mmol/L (3.5-5.1); Total Bilirubin 1.1 mg/dL (0.2-1.3); Total Protein 7.1 g/dL (6.3-8.2)
[2020-07-23] MEDS: ASPIRIN 81 MG PO SCH (09:35)
[2020-07-23] MEDS: LOSARTAN 50 MG TAB PO SCH (09:35)
[2020-07-23] MEDS: amLODIPine 10 MG TAB PO SCH (09:35)
[2020-07-23] MEDS: CHOLECALCIFEROL 25 MCG (1000 IU) TABLET PO SCH (09:35)
[2020-07-23] MEDS: SERTRALINE 100 MG TAB PO SCH (09:35)
[2020-07-23] MEDS: ALPRAZolam 0.25 MG TAB PO SCH ×2 (09:35→21:59)
[2020-07-23] MEDS ORDERED: Potassium Replacement Protocol 1 EACH MISC MISCELLANE PRN (10:45)
[2020-07-23] MEDS ORDERED: POTASSIUM CHLORIDE ER 20 MEQ TAB.ER PO SCH (11:00)
--- NOTE | 2020-07-23 11:43 | P.GSCN ---
History of Present Illness Consult date: 07/23/20 Reason for Consult: Coronary artery disease Requesting physician: Brennan Larsen History of present illness: This is a 75-year-old female patient who follows on an outpatient basis with Dr. Derrick Neal. She has a previous medical history of coronary artery disease with previous myocardial infarction and stent placement, peripheral arterial disease with lower extremity stenting, lung cancer status post right lower lobectomy, hypertension, hyperlipidemia, COPD with previous tobacco dependence, anxiety/depression, and family history of premature coronary artery disease with 1 son having CABG in his late 40s and the other son having CABG in his mid 50s. She presented to [facility] with complaints of chest pain, shortness of breath, as well as nausea. Her BNP was 1100, troponins were 0.012, 0.029, 0.04 1, and 0.040. EKG demonstrated sinus rhythm with nonspecific STT wave abnormalities without evidence of acute ischemia. She stated the chest discomfort she was having was at rest and felt similar to what she experienced years ago with her myocardial infarction. Of note she also states she had been seen in the emergency room at [facility] a couple of weeks earlier with similar symptoms, she was given IV Lasix which resolved her symptoms at that time. Ms. Arguello was transferred to [facility] for further evaluation and treatment. Troponins here were 0.018 and less then 0.012. BNP 1270, coronavirus not detected. EKG demonstrated sinus rhythm with T-wave abnormality. Transthoracic echocardiogram was completed demonstrating moderate concentric LVH, EF 50-55%, basal inferior and inferoseptal LV wall motion hypokinesis, mildly enlarged right ventricle, and no significant valvular pathology. The patient was recommended to undergo heart catheterization which demonstrated proximal LAD stenosis 85%, mid LAD stenosis 90%, first obtuse marginal branch of the circumflex coronary artery 70-80%, proximal and mid right coronary artery in-stent restenosis 99% with diffuse intimal disease up to 90% stenosis prior to the bifurcation into the PDA and PLV. Due to these findings consultation was placed to Dr. Moffett from cardiothoracic surgery for surgical myocardial revascularization recommendations. Review of Systems Review of systems was completed and was negative except as noted - Cardiovascular Reports as per HPI, Reports chest pain, Reports leg edema, Reports shortness of breath - Gastrointestinal Reports as per HPI, Reports nausea - Musculoskeletal Musculoskeleta Comment(s): Ambulates with a cane Past Medical History Past Medical History: Coronary Artery Disease (CAD), Cancer, Chest Pain / Angina, Heart Failure, COPD, Hyperlipidemia, Hypertension, Myocardial Infarction ([place]), Osteoarthritis (OA), Vascular Disorder Additional Past Medical History / Comment(s): hx. lung cancer, hx. colon polyps, frequent lower side pain, urinary frequency, PAD with lower extremity stenting Last Myocardial Infarction Date:: unknown History of Any Multi-Drug Resistant Organisms: None Reported Past Surgical History: Heart Catheterization With Stent, Hysterectomy Additional Past Surgical History / Comment(s): right lower lobectomy, colonoscopies, stenting,angioplasty lower legs Past Anesthesia/Blood Transfusion Reactions: No Reported Reaction Date of Last Stent Placement:: 2004 Past Psychological History: Anxiety, Depression Smoking Status: Former smoker Past Alcohol Use History: None Reported Additional Past Alcohol Use History / Comment(s): quit smoking 2011, 1ppd since teens, doesn't drink much anymore Past Drug Use History: None Reported - Past Family History Mother Family Medical History: Cancer Additional Family Medical History / Comment(s): colon Son(s) Family Medical History: Coronary Artery Disease (CAD) Additional Family Medical History / Comment(s): 1 son having CABG in his late 40s, the other son having CABG in his mid 50s Medications and Allergies Home Medications Medication Instructions Recorded Confirmed Type ALPRAZolam [Xanax] 0.25 mg PO BID 04/02/18 07/21/20 History Aspirin EC [Ecotrin Low Dose] 81 mg PO HS 04/02/18 07/21/20 History Atorvastatin [Lipitor] 80 mg PO HS 04/02/18 07/21/20 History Cholecalciferol [Vitamin D3 (25 1,000 unit PO HS 04/02/18 07/21/20 History Mcg = 1000 Iu)] Clopidogrel [Plavix] 75 mg PO HS 04/02/18 07/21/20 History Ezetimibe [Zetia] 10 mg PO HS 04/02/18 07/21/20 History HYDROcodone/APAP 5-325MG [[place] 1 tab PO TID 04/02/18 07/21/20 History 5-325] Sertraline [Zoloft] 100 mg PO HS 04/02/18 07/21/20 History cilostazoL [Pletal] 100 mg PO BID 04/02/18 07/21/20 History Carvedilol [Coreg] 12.5 mg PO BID 03/19/19 07/21/20 History Losartan [Cozaar] 25 mg PO HS 03/19/19 07/21/20 History Cyclobenzaprine [Flexeril] 10 mg PO BID PRN 07/21/20 07/21/20 History Gabapentin [Neurontin] 300 mg PO BID 07/21/20 07/21/20 History Ibuprofen [Motrin] 800 mg PO Q12H PRN 07/21/20 07/21/20 History amLODIPine [Norvasc] 5 mg PO DAILY 07/21/20 07/21/20 History traZODone HCL 100 mg PO HS 07/21/20 07/21/20 History Allergies Allergy/AdvReac Type Severity Reaction Status Date / Time Penicillins AdvReac Rash/Hives, Verified 07/21/20 09:44 LOC zolpidem [From Ambien] AdvReac Hallucinati Verified 07/21/20 09:44 ons Surgical - Exam Vital Signs Temp Pulse Resp BP Pulse Ox 98 F 72 18 204/112 96 07/21/20 07:56 07/21/20 07:56 07/21/20 07:56 07/21/20 07:56 07/21/20 07:56 - General well developed, well nourished, no distress, no pain - Eyes PERRL, normal ocular movement - ENT no hearing loss - Neck no masses, no bruits, trachea midline - Respiratory Lungs sounds diminished bilaterally. Respirations even, nonlabored. Currently on room air with oxygen saturation in the mid 90s. No chest wall deformities. No clubbing or cyanosis present. - Cardiovascular S1, S2 present. Regular rate and rhythm, sinus rhythm on telemetry with heart rate in the 60s. Palpable peripheral pulses bilaterally. No edema present. No calf pain or tenderness noted. - Abdomen Abdomen: soft, non tender, bowel sounds - Genitourinary Deferred - Rectum Deferred - Integumentary Well-healed thoracotomy scar to posterior lateral right chest no rash, no growths, no abnormal pigmentation - Neurologic normal coordination, normal sensation - Musculoskeletal normal gait, normal posture - Psychiatric oriented to time, oriented to person, oriented to place, speech is normal, memory intact Results - Labs 07/23/20 07:32 07/23/20 07:32 Abnormal Lab Results - Last 24 Hours (Table) 07/23/20 Range/Units 07:32 BUN 42 H (7-17) mg/dL Glucose 102 H (74-99) mg/dL Diabetes panel 07/23/20 Range/Units 07:32 Sodium 139 (137-145) mmol/L Potassium 3.7 (3.5-5.1) mmol/L Chloride 103 (98-107) mmol/L Carbon Dioxide 26 (22-30) mmol/L BUN 42 H (7-17) mg/dL Creatinine 0.92 (0.52-1.04) mg/dL Glucose 102 H (74-99) mg/dL Calcium 9.4 (8.4-10.2) mg/dL AST 24 (14-36) U/L ALT 18 (4-34) U/L Alkaline Phosphatase 81 (38-126) U/L Total Protein 7.1 (6.3-8.2) g/dL Albumin 4.2 (3.5-5.0) g/dL Thyroid panel 07/23/20 Range/Units 07:32 TSH 1.660 (0.465-4.680) mIU/L Calcium panel 07/23/20 Range/Units 07:32 Calcium 9.4 (8.4-10.2) mg/dL Albumin 4.2 (3.5-5.0) g/dL Pituitary panel 07/23/20 Range/Units 07:32 Sodium 139 (137-145) mmol/L Potassium 3.7 (3.5-5.1) mmol/L Chloride 103 (98-107) mmol/L Carbon Dioxide 26 (22-30) mmol/L BUN 42 H (7-17) mg/dL Creatinine 0.92 (0.52-1.04) mg/dL Glucose 102 H (74-99) mg/dL Calcium 9.4 (8.4-10.2) mg/dL TSH 1.660 (0.465-4.680) mIU/L Adrenal panel 07/23/20 Range/Units 07:32 Sodium 139 (137-145) mmol/L Potassium 3.7 (3.5-5.1) mmol/L Chloride 103 (98-107) mmol/L Carbon Dioxide 26 (22-30) mmol/L BUN 42 H (7-17) mg/dL Creatinine 0.92 (0.52-1.04) mg/dL Glucose 102 H (74-99) mg/dL Calcium 9.4 (8.4-10.2) mg/dL Total Bilirubin 1.1 (0.2-1.3) mg/dL AST 24 (14-36) U/L ALT 18 (4-34) U/L Alkaline Phosphatase 81 (38-126) U/L Total Protein 7.1 (6.3-8.2) g/dL Albumin 4.2 (3.5-5.0) g/dL - Imaging Chest x-ray: report reviewed, image reviewed EKG: image reviewed Assessment and Plan Assessment: 1. Triple-vessel coronary artery disease, unstable angina 2. History of coronary artery disease with previous myocardial infarction and stent placement 3. Peripheral arterial disease with lower cavity stenting 4. History of lung cancer status post right lower lobectomy 5. Hypertension 6. Hyperlipidemia, treated 7. COPD with previous tobacco dependence 8. Anxiety/depression 9. Family history of premature coronary artery disease Plan: The patient was seen and examined at the bedside on the cardiac stepdown unit. Chart/diagnostics were reviewed. The usual perioperative course of coronary artery bypass surgery was discussed in detail with the patient, risks and benefits reviewed, all questions were answered. The patient currently denies any pain or shortness of breath, currently in no distress. Preoperative testing was initiated. 5 m walk test was completed by cardiac rehab, 7.23 seconds, 6.83 seconds, 7.85 seconds. Once all preoperative testing has been completed we will calculate STS risk score and discuss with the patient. Our recommendations currently are to continue aspirin, statin, beta tran therapy. Increase activity, ambulate as tolerated. Incentive spirometry ordered and should be encouraged. Pulmonology consulted for perioperative management as well as h istory of lung cancer status post lobectomy. More recommendations to follow. Thank you Dr. Larsen for this consult.
[2020-07-23 12:06] LABS: Hepatitis A Antibody IgM Non-Reactive (Non-Reactive); Hepatitis B Core IgM Non-Reactive (Non-Reactive); Hepatitis B Surface Antigen Non-Reactive (Non-Reactive); Hepatitis C IgG Antibody Non-Reactive (Non-Reactive)
--- NOTE | 2020-07-23 12:47 | P.PN ---
Subjective Progress Note Date: 07/23/20 HISTORY OF PRESENT ILLNESS: 75 year old female who follows with Dr. 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 Patient is status post cardiac cath with Dr. Larsen on 07/22/2020 revealing severe calcification of the coronary arteries, severe triple vessel coronary artery disease with significant disease in the proximal LAD, mid LAD, obtuse marginal branch and the right coronary artery. Cardiothoracic surgery has been consulted. Echocardiogram completed revealed ejection fraction 50-55%. Patient examined this morning at the bedside. She denies chest pain or pressure. Vital signs are stable. She is on room air with oxygen saturations greater than 92%. PHYSICAL EXAM: VITAL SIGNS: Reviewed. GENERAL: Well-developed in no acute distress. NECK: Supple. No JVD or thyromegaly LUNGS: Respirations even and unlabored. Lungs essentially clear to auscultation bilaterally. HEART: Regular rate and rhythm. S1 and S2 heard. EXTREMITIES: Normal range of motion. No clubbing or cyanosis. Peripheral pulses intact. No lower extremity edema. Right radial cath site with pulse present ASSESSMENT: Unstable angina, status post cardiac cath revealing triple vessel coronary disease History of coronary artery disease with previous PCI Hypertension Hyperlipidemia History of lung cancer previous right lower lobectomy Peripheral arterial disease Former nicotine dependence PLAN: Continue current cardiac medications Continue telemetry monitoring Cardiothoracic surgery has been consulted. Await recommendations Further recommendations pending patient course Nurse practitioner note has been reviewed by physician. Signing provider agrees with the documented findings, assessment, and plan of care. Objective - Vital Signs Vital signs: Vital Signs Temp 97.6 F 07/23/20 08:00 Pulse 68 07/23/20 12:00 Resp 18 07/23/20 12:00 BP 124/58 07/23/20 12:00 Pulse Ox 94 L 07/23/20 12:00 Intake & Output 07/22/20 07/23/20 07/23/20 18:59 06:59 18:59 Intake Total 100 120 240 Output Total 400 400 Balance -300 -280 240 Weight 81.9 kg Intake: IV 100 Oral 120 240 Output: Urine 400 400 Other: Voiding Method Toilet Toilet Toilet - Labs CBC & Chem 7: 07/23/20 07:32 07/23/20 07:32 Labs: Abnormal Lab Results - Last 24 Hours (Table) 07/23/20 Range/Units 07:32 BUN 42 H (7-17) mg/dL Glucose 102 H (74-99) mg/dL
[2020-07-23 13:00] LABS: Appearance,Urine Clear (Clear); Bilirubin,Urine Negative (Negative); Blood,Urine Negative (Negative); Color,Urine Yellow; Glucose,Urine (UA) Negative (Negative); Ketones,Urine Negative (Negative); Leukocyte Esterase,Urine Small (Negative); Mucus,Urine Rare /hpf; Nitrite,Urine Negative (Negative); Protein,Urine Negative (Negative); RBC,Urine 1 /hpf (0-5); Specific Gravity,Urine 1.036 (1.001-1.035); Squamous Epithelial Cell,Urine 5 /hpf (0-4); Urobilinogen,Urine <2.0 mg/dL (<2.0); WBC,Urine 7 /hpf (0-5)
--- NOTE | 2020-07-23 14:48 | US ---
EXAMINATION TYPE: US carotid duplex BILAT DATE OF EXAM: 07/23/2020 COMPARISON: NONE CLINICAL HISTORY: preop cabg. no h/o stroke EXAM MEASUREMENTS: RIGHT: Peak Systolic Velocity (PSV) cm/sec ----- Right CCA: 98.6 ----- Right ICA: 129.8 ----- Right ECA: 188.0 ICA/CCA ratio: 1.3 RIGHT: End Diastole cm/sec ----- Right CCA: 23.0 ----- Right ICA: 33.3 ----- Right ECA: 27.6 LEFT: Peak Systolic Velocity (PSV) cm/sec ----- Left CCA: 98.7 ----- Left ICA: 150.1 ----- Left ECA: 228.4 ICA/CCA ratio: 1.5 LEFT: End Diastole cm/sec ----- Left CCA: 22.4 ----- Left ICA: 24.6 ----- Left ECA: 17.0 VERTEBRALS (direction of flow): Right Vertebral: Antegrade Left Vertebral: Antegrade Rhythm: Normal Extensive heterogeneous plaque with no significant stenosis seen. IMPRESSION: 1. Extensive plaque with no significant hemodynamic stenosis. Criteria for Assigning % of Stenosis / Diameter reduction (Estimation based on the indirect measurements of the internal carotid artery velocities (ICA PSV). 1. Normal (no stenosis)=ICA PSV < 125 cm/s: ratio < 2.0: ICA EDV<40 cm/s. 2. Less than 50% stenosis=ICA PSV < 125 cm/s: ratio < 2.0: ICA EDV<40 cm/s. 3. 50 to 69% stenosis=ICA PSV of 125 to 230 cm/s: ration 2.0 ? 4.0: ICA EDV 40-100 cm/s. 4. Greater than 70% stenosis to near occlusion= ICA PSV > 230 cm/s: ratio > 4.0: ICA EDV > 100 cm/s. 5. Near occlusion= ICA PSV velocities may be low or undetectable: variable ratio and ICA EDV. 6. Total occlusion=unable to detect flow.
--- NOTE | 2020-07-23 17:01 | P.CNPUL ---
History of Present Illness Consult date: 07/23/20 Requesting physician: Anthony Moffett Reason for consult: other (Preoperative pulmonary clearance.) Chief complaint: Chest pain and shortness of breath as well as nausea History of present illness: This is a 75-year-old female with history of multiple medical problems, she is primarily a patient of Dr. Derrick Neal. Known history of coronary artery disease, previous SD and stent placement, history of peripheral vessel occlusive disease, history of lung cancer and previous right lower lobectomy hypertension, COPD, and strong family history of premature coronary artery disease. Patient presented to [facility] with chest pain and shortness of breath, she was noted to have elevated BNP and elevated troponins. Patient was found to have abnormal EKG with nonspecific ST and T-wave abnormalities, arrangements were made to transfer the patient to [facility], patient underwent cardiac catheterization, and demonstrated proximal LAD stenosis 85%, mid LAD stenosis 90%, first obtuse marginal branch of the circumflex was 70-80% stenosis. Right coronary artery stenosis of 99%. And there was diffuse intimal disease prior to the bifurcation into the PDA and PLV. Considering these abnormal findings on cardiac catheterization, cardiothoracic surgery was consulted, and the patient is scheduled to undergo myocardial revascularization sometime either late this week or next week patient has been on Plavix. Pulmonary-[place], the patient has no cough no wheezing no fever no chills no hemoptysis and her FEV1 is basically unremarkable. Patient used to smoke, but has not smoked since she was diagnosed with lung cancer and had previous lobectomy back in 2011 Review of Systems GEN.: Negative HEENT: Negative RESPIRATORY: Negative CARDIOVASCULAR: As noted in HPI GASTROINTESTINAL: Negative GENITOURINARY: Negative MUSCULOSKELETAL: Symptoms of osteoarthritis. LYMPHATICS: Negative HEMATOLOGICAL: Negative PSYCHIATRY: Negative NEUROLOGICAL: Negative Past Medical History Past Medical History: Coronary Artery Disease (CAD), Cancer, Chest Pain / Angina, Heart Failure, COPD, Hyperlipidemia, Hypertension, Myocardial Infarction ([place]), Osteoarthritis (OA), Vascular Disorder Additional Past Medical History / Comment(s): hx. lung cancer, hx. colon polyps, frequent lower side pain, urinary frequency, PAD with lower extremity stenting Last Myocardial Infarction Date:: unknown History of Any Multi-Drug Resistant Organisms: None Reported Past Surgical History: Heart Catheterization With Stent, Hysterectomy Additional Past Surgical History / Comment(s): right lower lobectomy, co lonoscopies, stenting,angioplasty lower legs Past Anesthesia/Blood Transfusion Reactions: No Reported Reaction Date of Last Stent Placement:: 2004 Past Psychological History: Anxiety, Depression Smoking Status: Former smoker Past Alcohol Use History: None Reported Additional Past Alcohol Use History / Comment(s): quit smoking 2011, 1ppd since teens, doesn't drink much anymore Past Drug Use History: None Reported - Past Family History Mother Family Medical History: Cancer Additional Family Medical History / Comment(s): colon Son(s) Family Medical History: Coronary Artery Disease (CAD) Additional Family Medical History / Comment(s): 1 son having CABG in his late 40s, the other son having CABG in his mid 50s Medications and Allergies Home Medications Medication Instructions Recorded Confirmed Type ALPRAZolam [Xanax] 0.25 mg PO BID 04/02/18 07/21/20 History Aspirin EC [Ecotrin Low Dose] 81 mg PO HS 04/02/18 07/21/20 History Atorvastatin [Lipitor] 80 mg PO HS 04/02/18 07/21/20 History Cholecalciferol [Vitamin D3 (25 1,000 unit PO HS 04/02/18 07/21/20 History Mcg = 1000 Iu)] Clopidogrel [Plavix] 75 mg PO HS 04/02/18 07/21/20 History Ezetimibe [Zetia] 10 mg PO HS 04/02/18 07/21/20 History HYDROcodone/APAP 5-325MG [[place] 1 tab PO TID 04/02/18 07/21/20 History 5-325] Sertraline [Zoloft] 100 mg PO HS 04/02/18 07/21/20 History cilostazoL [Pletal] 100 mg PO BID 04/02/18 07/21/20 History Carvedilol [Coreg] 12.5 mg PO BID 03/19/19 07/21/20 History Losartan [Cozaar] 25 mg PO HS 03/19/19 07/21/20 History Cyclobenzaprine [Flexeril] 10 mg PO BID PRN 07/21/20 07/21/20 History Gabapentin [Neurontin] 300 mg PO BID 07/21/20 07/21/20 History Ibuprofen [Motrin] 800 mg PO Q12H PRN 07/21/20 07/21/20 History amLODIPine [Norvasc] 5 mg PO DAILY 07/21/20 07/21/20 History traZODone HCL 100 mg PO HS 07/21/20 07/21/20 History Allergies Allergy/AdvReac Type Severity Reaction Status Date / Time Penicillins AdvReac Rash/Hives, Verified 07/21/20 09:44 LOC zolpidem [From Ambien] AdvReac Hallucinati Verified 07/21/20 09:44 ons Physical Exam Vitals: Vital Signs Temp Pulse Resp BP Pulse Ox 07/23/20 12:00 68 18 124/58 94 L 07/23/20 08:00 97.6 F 70 18 114/52 92 L 07/23/20 04:00 98.3 F 67 18 108/58 93 L 07/23/20 02:00 98.1 F 69 18 113/63 95 07/23/20 00:00 98.1 F 69 18 113/63 95 07/22/20 20:00 98.3 F 74 18 101/65 93 L Intake and Output 07/23/20 07/23/20 07/23/20 06:59 14:59 22:59 Intake Total 640 Output Total 200 400 Balance -200 240 Intake: Oral 640 Output: Urine 200 400 Other: Voiding Method Toilet Toilet Weight 81.9 kg GENERAL: Revealed a 75-year-old female in no distress, extremely pleasant.. HEENT: PERRLA, EOMI, anicteric, moist mucous membranes, NECK: Supple no neck masses no thyromegaly. HEART: Normal S1 and S2, no S3 gallop. LUNGS: Better, chest expansion, clear breath sound bilaterally no crackles or rhonchi or wheezes. ABDOMEN: Soft nontender no megaly no rebound no guarding PSYCH: Normal mood affect and normal mental status examination. MUSCULOSKELETAL: No deformities noted limitation range of motion. NEUROLOGICAL: Alert and oriented 3, no gross focal neurologic deficits. LYMPHATICS: No cervical adenopathy. Skin: No rashes Results - Laboratory Findings CBC and BMP: 07/23/20 07:32 07/23/20 07:32 PT/INR, D-dimer PT 10.3 sec (9.0-12.0) 07/23/20 07:32 INR 1.0 (<1.2) 07/23/20 07:32 Abnormal lab findings: Abnormal Labs 07/22/20 07/23/20 07/23/20 05:43 07:32 12:00 Sodium 136 L BUN 33 H 42 H Glucose 131 H 102 H Ur Specific [place] 1.036 H Ur Leukocyte Esterase Small H Urine WBC 7 H Ur Squamous Epith Cells 5 H Urine Mucus Rare H - Diagnostic Findings Chest x-ray: image reviewed (No evidence of infiltrate, chronic right lower lobe changes secondary to previous lobectomy) Assessment and Plan Assessment: Impression: Triple-vessel coronary artery disease symptoms of unstable angina. Remote History of non-small cell lung cancer and previous lobectomy. History of smoking/ex-smoker. Minimal COPD based on her PFT. Family history of premature coronary artery disease. Hypertension. Peripheral vessel occlusive disease Degenerative joint disease Dyslipidemia. Chronic insomnia. Recommendation: Reviewed and discussed chest x-ray findings. Reviewed PFT. Reviewed all her medications and the cardiac catheterization report. Patient will be cleared for surgery, she is considered low operative risk. In the meantime patient will be instructed on the use of incentive spirometer. We will continue to follow. Again patient was cleared for surgery as scheduled Time with Patient: Greater than 30
--- NOTE | 2020-07-23 18:08 | CT ---
EXAMINATION TYPE: CT chest wo con DATE OF EXAM: 07/23/2020 COMPARISON: 03/19/2019 HISTORY: preop cabg, eval aorta CT DLP: 383 mGycm Automated exposure control for dose reduction was used. Images obtained from the thoracic inlet to the diaphragm with no contrast. FINDINGS: There is no pleural effusion. There is no pericardial effusion. There is dense coronary artery calcif ication. There is mild subpleural reticular density in the right lower lobe. There is emphysematous c hanges in both upper lobes. There is no evidence of a pulmonary mass. There is no mediastinal adenopa thy. Thoracic aorta is atheromatous. There are no hilar masses. Upper abdominal soft tissues are inta ct. The ascending aorta measures 3.3 cm. There is no aneurysm. Aorta measures 3.4 cm at the aortic valve. Thoracic spine is intact. There is no compression fracture. There is a very mild thoracolumbar levosc oliosis. There are spondylotic changes in the thoracic spine. IMPRESSION: Pulmonary emphysema. Interstitial fibrotic changes more noticeable in the right lower lobe. No suspic ious pulmonary mass. No evidence of aortic aneurysm. No adverse change compared to old exam.
[2020-07-23 18:48] LABS: Hemoglobin A1C 5.8 % (4.0-6.0)
--- NOTE | 2020-07-23 20:31 | P.PN ---
Subjective From the records: This is a pleasant 75-year-old patient of Dr. Derrick Neal. Chronic stable medical conditions include COPD, hyperlipidemia, hypertension, ostial arthritis, lung cancer 6 years ago, peripheral artery disease, coronary artery stent, peripheral stents, anxiety depression. Patient presented after she was having central chest pressure at home then went to both the shoulder blades for the arms. Patient became nauseated. No dizziness or lightheadedness. She shortness of breath. No perspiration. Symptoms most lost about 40 minutes she was taken to [facility]. She was similar episode about 2 weeks ago. Transferred down here. Has some lower extremity edema Subjective: This is the first day I am taking care of the patient 07/23/2020 This is a pleasant 60 years old female who presents with a stable angina and un derwent cardiac cath by cardiology team showing severe triple vessel coronary artery disease. Because of these vascular surgery team were consulted and workup is initiated. Also pulmonary team on the case and patient was suspected to have right lower lobe pneumonia however no antibiotics were started and chest CT scant showing pulmonary emphysema with interstitial fibrotic changes more noticeable in the right lower lobe with no suspicious masses or aortic aneurysm. Review of systems CONSTITUTIONAL: No fever, no malaise, no fatigue. HEENT: No recent visual problems or hearing problems. Denied any sore throat. CARDIOVASCULAR: No orthopnea, PND, no palpitations, no syncope. PULMONARY: No shortness of breath, no cough, no hemoptysis. GASTROINTESTINAL: No diarrhea, no nausea, no vomiting, no abdominal pain. Normoactive bowel sounds. Active Medications Generic Name Dose Route Start Last Admin Trade Name Freq PRN Reason Stop Dose Admin Hydrocodone Bitart/Acetaminophen 1 each 07/21/20 09:00 07/23/20 18:10 Hydrocodone/Apap 5-325mg 1 Each Tab PO 1 each TID INÉS Administration Alprazolam 0.25 mg 07/21/20 09:00 07/23/20 09:35 Alprazolam 0.25 Mg Tab PO 0.25 mg BID INÉS Administration Alprazolam 0.25 mg 07/22/20 12:50 Alprazolam 0.25 Mg Tab PO Q6HR PRN Mild Anxiety Alprazolam 0.5 mg 07/22/20 12:50 Alprazolam 0.5 Mg Tab PO Q6HR PRN Moderate Anxiety Amlodipine Besylate 10 mg 07/22/20 09:00 07/23/20 09:35 Amlodipine 10 Mg Tab PO 10 mg DAILY INÉS Administration Aspirin 81 mg 07/23/20 09:00 07/23/20 09:35 Aspirin 81 Mg PO 81 mg DAILY INÉS Administration Atorvastatin Calcium 80 mg 07/21/20 21:00 07/22/20 22:36 Atorvastatin 80 Mg Tab PO 80 mg HS INÉS Administration Capsaicin 1 applic 07/21/20 09:00 07/23/20 13:04 Capsaicin 0.025% Cream 60 Gm Tube TOPICAL 1 applic BID INÉS Administration Carvedilol 12.5 mg 07/21/20 09:00 07/23/20 18:10 Carvedilol 12.5 Mg Tab PO 12.5 mg BID-W/MEALS INÉS Administration Cholecalciferol 25 mcg 07/21/20 09:00 07/23/20 09:35 Cholecalciferol 25 Mcg (1000 Iu) Tablet PO 25 mcg DAILY INÉS Administration Ezetimibe 10 mg 07/21/20 21:00 07/22/20 22:35 Ezetimibe 10 Mg Tab PO 10 mg HS INÉS Administration Famotidine 20 mg 07/23/20 21:00 Famotidine 20 Mg/2 Ml Vial IV Q12HR INÉS Sodium Chloride 1,000 mls @ 20 mls/hr 07/21/20 08:30 07/22/20 10:53 Saline 0.9% IV Not Given .Q24H INÉS Heparin Sodium (Porcine) 10, 1,001 mls @ 999 mls/hr 07/23/20 07:00 000 unit/ Sodium Chloride IRRIGATION 07/23/20 23:00 ONCE PRN INTRA-OP Heparin Sodium (Porcine) 2,500 250.5 mls @ 250 mls/hr 07/23/20 07:00 unit/ Sodium Chloride IRRIGATION 07/23/20 23:00 ONCE PRN INTRA-OP Losartan Potassium 50 mg 07/22/20 09:00 07/23/20 09:35 Losartan 50 Mg Tab PO 50 mg DAILY INÉS Administration Miscellaneous Information 1 each 07/22/20 14:00 Rx Info: Iv Contrast Was Given 1 Each Misc MISCELLANE 07/24/20 14:00 DAILY PRN Per Protocol Miscellaneous Information 1 each 07/23/20 10:45 Potassium Replacement Protocol 1 Each Misc MISCELLANE DAILY PRN Per Protocol Protocol Nitroglycerin 1 inch 07/21/20 16:00 07/23/20 18:12 Nitroglycerin Oint 1 Inch/Gm Packet TOPICAL 1 inch Q8HR INÉS Administration Nitroglycerin 0.4 mg 07/22/20 12:50 Nitroglycerin Sl Tabs 0.4 Mg Tab SUBLINGUAL Q5M PRN Chest Pain Sertraline HCl 100 mg 07/21/20 09:00 07/23/20 09:35 Sertraline 100 Mg Tab PO 100 mg DAILY INÉS Administration Trazodone HCl 100 mg 07/22/20 21:00 07/22/20 22:35 Trazodone Hcl 100 Mg Tab PO 100 mg HS INÉS Administration Objective - Vital Signs Vital signs: Vital Signs Temp 97.6 F 07/23/20 08:00 Pulse 68 07/23/20 12:00 Resp 18 07/23/20 12:00 BP 124/58 07/23/20 12:00 Pulse Ox 94 L 07/23/20 12:00 Intake & Output 07/22/20 07/23/20 07/23/20 18:59 06:59 18:59 Intake Total 100 120 240 Output Total 400 400 Balance -300 -280 240 Weight 81.9 kg Intake: IV 100 Oral 120 240 Output: Urine 400 400 Other: Voiding Method Toilet Toilet Toilet - Exam GENERAL: The patient is alert and oriented x3, not in any acute distress. Well developed, well nourished. HEENT: Pupils are round and equally reacting to light. EOMI. No scleral icterus. No conjunctival pallor. Normocephalic, atraumatic. No pharyngeal erythema. No thyromegaly. CARDIOVASCULAR: S1 and S2 present. No murmurs, rubs, or gallops. PULMONARY: Chest is clear to auscultation, no wheezing or crackles. ABDOMEN: Soft, nontender, nondistended, normoactive bowel sounds. No palpable organomegaly. MUSCULOSKELETAL: No joint swelling or deformity. EXTREMITIES: No cyanosis, clubbing, or pedal edema. NEUROLOGICAL: Gross neurological examination did not reveal any focal deficits. SKIN: No rashes. no petechiae. - Labs CBC & Chem 7: 07/23/20 07:32 07/23/20 07:32 Labs: Abnormal Lab Results - Last 24 Hours (Table) 07/23/20 07/23/20 Range/Units 07:32 12:00 BUN 42 H (7-17) mg/dL Glucose 102 H (74-99) mg/dL Ur Specific [place] 1.036 H (1.001-1.035) Ur Leukocyte Esterase Small H (Negative) Urine WBC 7 H (0-5) /hpf Ur Squamous Epith Cells 5 H (0-4) /hpf Urine Mucus Rare H (None) /hpf Assessment and Plan Assessment: Triple vessel coronary artery disease Unstable angina secondary to above Pulmonary emphysema with fibrotic changes in the right lower lung History of lung cancer status post surgical resection Hypertension Peripheral vascular disease Hyperlipidemia Osteoarthritis Plan: This is a pleasant 75 years old female with triple-vessel coronary artery disease. Cardiothoracic surgery on the case and workup is under going for surgical intervention, pulmonary evaluated the patient preoperatively and she is low risk. Continue with heparin drip per music library assistant Vitas looks stable Labs and medication were reviewed.. Continue same treatment. Continue with symptomatic treatment. Resume home medication. Monitor lytes and vitals. DVT and GI prophylaxis. Further recommendationsas per clinical course of the patient DVT prophylaxis: Subcutaneous heparin GI Prophylaxis: Pepcid Prognosis is guarded
[2020-07-23] MEDS: traZODone HCL 100 MG TAB PO SCH (21:59)
[2020-07-23] MEDS: FAMOTIDINE 20 MG/2 ML VIAL IV SCH (21:59)
[2020-07-23] MEDS: ATORVASTATIN 80 MG TAB PO SCH (21:59)
[2020-07-23] MEDS: EZETIMIBE 10 MG TAB PO SCH (21:59)
[2020-07-24] MEDS: SODIUM CHLORIDE 0.9% 1,000 ML IV SCH ×2 (04:38→15:55)
[2020-07-24] MEDS: HYDROcodone/APAP 5-325MG 1 EACH TAB PO SCH ×4 (04:42→21:57)
[2020-07-24] MEDS: NITROGLYCERIN OINT 1 INCH/GM PACKET TOPICAL SCH ×3 (04:43→16:51)
[2020-07-24] MEDS: carvediloL 12.5 MG TAB PO SCH ×2 (07:02→16:50)
[2020-07-24] MEDS: CHOLECALCIFEROL 25 MCG (1000 IU) TABLET PO SCH (08:43)
[2020-07-24] MEDS: ALPRAZolam 0.25 MG TAB PO SCH ×2 (08:43→21:56)
[2020-07-24] MEDS: SERTRALINE 100 MG TAB PO SCH (08:43)
[2020-07-24] MEDS: ASPIRIN 81 MG PO SCH (08:43)
[2020-07-24] MEDS: amLODIPine 10 MG TAB PO SCH (08:43)
[2020-07-24] MEDS: CAPSAICIN 0.025% CREAM 60 GM TUBE TOPICAL SCH ×2 (08:44→22:01)
[2020-07-24] MEDS: LOSARTAN 50 MG TAB PO SCH (08:44)
[2020-07-24] MEDS: FAMOTIDINE 20 MG/2 ML VIAL IV SCH (09:25)
[2020-07-24 09:31] LABS: African American GFR (CKD) >90 (>60 ml/min/1.73 sqM); Anion Gap 10 mmol/L; Blood Urea Nitrogen 36 mg/dL (7-17); Calcium 9.3 mg/dL (8.4-10.2); Carbon Dioxide 22 mmol/L (22-30); Chloride 106 mmol/L (98-107); Glucose 127 mg/dL (74-99); Non-African American GFR(CKD) 85 (>60 ml/min/1.73 sqM); Sodium 138 mmol/L (137-145)
--- NOTE | 2020-07-24 12:09 | P.PN ---
Subjective Progress Note Date: 07/24/20 Principal diagnosis: Triple-vessel coronary artery disease, unstable angina. History of coronary artery disease with previous myocardial infarction and stent placement, peripheral arterial disease with lower extremity stenting, lung cancer status post right lower lobectomy in 2012, hypertension, hyperlipidemia, COPD with previous tobacco dependence, anxiety/depression, family history of premature coronary artery disease The patient was seen and examined yesterday with Dr. Alan, examined this morning as well. She denies any pain or unusual shortness of breath, she has be en able to ambulate in her room without difficulty. Remains in normal sinus rhythm and hemodynamically stable. Preoperative testing completed and STS risk score calculated and discussed with patient and her son, all questions answered. She does express the wish to be able to go home and come back in outpatient for surgery to be able to see her son who is coming in from out of town. We did explain the significant nature of her coronary disease and she demonstrated understanding. Objective - Vital Signs Vital signs: Vital Signs Temp 98.0 F 07/24/20 08:00 Pulse 70 07/24/20 08:00 Resp 18 07/24/20 08:00 BP 117/67 07/24/20 08:00 Pulse Ox 93 L 07/24/20 08:00 Intake & Output 07/23/20 07/24/20 07/24/20 18:59 06:59 18:59 Intake Total 1084 240 Output Total 800 800 400 Balance 284 -800 -160 Weight 81.6 kg Intake: Oral 1084 240 Output: Urine 800 800 400 Other: Voiding Method Toilet Toilet Toilet # Voids 1 - Constitutional General appearance: Present: cooperative, no acute distress - Respiratory Details: Lungs sounds diminished bilaterally. Respirations even, nonlabored. Currently on room air with oxygen saturation 93%. Able to achieve 1700 mL on her incenti ve spirometry. - Cardiovascular Details: S1, S2 present. Regular rate and rhythm, sinus rhythm on telemetry with heart rate in the 60s. Palpable peripheral pulses bilaterally. No edema present. No calf pain or tenderness noted. - Gastrointestinal Gastrointestinal Comment(s): Abdomen soft, nontender, nondistended. Active bowel sounds x 4 quadrants. Tolerating diet - Genitourinary Genitourinary Comment(s): Continues to void - Integumentary Integumentary Comment(s): Skin is warm and dry with evidence of good perfusion - Neurologic Neurologic: Present: CNII-XII intact - Musculoskeletal Musculoskeletal Comment(s): Does walk with a cane occasionally, using the handrails in the hallway for balance Musculoskeletal: Present: gait normal, strength equal bilaterally - Psychiatric Psychiatric: Present: A&O x's 3, appropriate affect, intact judgment & insight - Allied health notes Allied health notes reviewed: nursing - Labs CBC & Chem 7: 07/23/20 07:32 07/24/20 08:42 Labs: Abnormal Lab Results - Last 24 Hours (Table) 07/23/20 07/24/20 Range/Units 12:00 08:42 BUN 36 H (7-17) mg/dL Glucose 127 H (74-99) mg/dL Ur Specific [place] 1.036 H (1.001-1.035) Ur Leukocyte Esterase Small H (Negative) Urine WBC 7 H (0-5) /hpf Ur Squamous Epith Cells 5 H (0-4) /hpf Urine Mucus Rare H (None) /hpf Microbiology - Last 24 Hours (Table) 07/23/20 12:10 Nasal Screen MRSA/MSSA - Preliminary Nasal Swab - Imaging and Cardiology CT scan - chest: report reviewed, image reviewed all films reviewed with Dr. Alan yesterday Assessment and Plan Assessment: 1. Triple-vessel coronary artery disease, unstable angina 2. History of coronary artery disease with previous myocardial infarction and stent placement 3. Peripheral arterial disease with lower extremity stenting 4. History of lung cancer status post right lower lobectomy 5. Hypertension 6. Hyperlipidemia, treated 7. COPD with previous tobacco dependence, preoperative FEV1 82% of predicted 8. Anxiety/depression 9. Family history of premature coronary artery disease Plan: 1. Continue ASA, statin, beta tran. Hold Plavix, last dose 07/22/20. Hold Pletal 2. Increase activity, ambulate as tolerated 3. Encourage incentive spirometry use 4. Our plan is for surgical myocardial revascularization with left internal mammary artery and endoscopic vein harvest by Dr. Alna soon, needs to be off Plavix for 5-7 days to prevent intra and post operative bleeding. 5. Continue medical management of other comorbidities per primary care 6. More recommendations to follow regarding timing of surgery Time with Patient: Greater than 30
--- NOTE | 2020-07-24 12:41 | P.PN ---
Subjective From the records: This is a pleasant 75-year-old patient of Dr. Derrick Neal. Chronic stable medical conditions include COPD, hyperlipidemia, hypertension, ostial arthritis, lung cancer 6 years ago, peripheral artery disease, coronary artery stent, peripheral stents, anxiety depression. Patient presented after she was having central chest pressure at home then went to both the shoulder blades for the arms. Patient became nauseated. No dizziness or lightheadedness. She shortness of breath. No perspiration. Symptoms most lost about 40 minutes she was taken to [facility]. She was similar episode about 2 weeks ago. Transferred down here. Has some lower extremity edema Subjective: 07/23/2020 This is a pleasant 60 years old female who presents with a stable angina and underwent cardiac cath by cardiology team showing severe triple vessel coronary artery disease. Because of these vascular surgery team were consulted and w orkup is initiated. Also pulmonary team on the case and patient was suspected to have right lower lo be pneumonia however no antibiotics were started and chest CT scant showing pulmonary emphysema with interstitial fibrotic changes more noticeable in the right lower lobe with no suspicious masses or aortic aneurysm. 07/24/2020 The patient is been evaluated for chest pain with cardiac cath showing triple vessel coronary artery disease, cardiothoracic surgery on the case as well as pulmonary who find her low risk for this Procedure. Also she underwent, and workup by surgical team. Currently she is lying in bed comfortable with no distress, no chest pain or dyspnea. Labs and vitals are reviewed, they are stable continue with aspirin and hold Plavix as per surgery team, Heparin drip was stopped so we'll start subcu heparin for DVT prophylaxis CT of the chest showing pulmonary emphysema and interstitial fibrotic changes in the right lower lobe rather than pneumonia as suspected and chest x-ray Objective - Vital Signs Vital signs: Vital Signs Temp 98.0 F 07/24/20 08:00 Pulse 70 07/24/20 08:00 Resp 18 07/24/20 08:00 BP 117/67 07/24/20 08:00 Pulse Ox 93 L 07/24/20 08:00 Intake & Output 07/23/20 07/24/20 07/24/20 18:59 06:59 18:59 Intake Total 1084 240 Output Total 800 800 400 Balance 284 -800 -160 Weight 81.6 kg Intake: Oral 1084 240 Output: Urine 800 800 400 Other: Voiding Method Toilet Toilet Toilet # Voids 1 - Exam GENERAL: The patient is alert and oriented x3, not in any acute distress. Well developed, well nourished. HEENT: Pupils are round and equally reacting to light. EOMI. No scleral icterus. No conjunctival pallor. Normocephalic, atraumatic. No pharyngeal erythema. No thyromegaly. CARDIOVASCULAR: S1 and S2 present. No murmurs, rubs, or gallops. PULMONARY: Chest is clear to auscultation, no wheezing or crackles. ABDOMEN: Soft, nontender, nondistended, normoactive bowel sounds. No palpable organomegaly. MUSCULOSKELETAL: No joint swelling or deformity. EXTREMITIES: No cyanosis, clubbing, or pedal edema. NEUROLOGICAL: Gross neurological examination did not reveal any focal deficits. SKIN: No rashes. no petechiae. - Labs CBC & Chem 7: 07/23/20 07:32 07/24/20 08:42 Labs: Abnormal Lab Results - Last 24 Hours (Table) 07/23/20 07/24/20 Range/Units 12:00 08:42 BUN 36 H (7-17) mg/dL Glucose 127 H (74-99) mg/dL Ur Specific [place] 1.036 H (1.001-1.035) Ur Leukocyte Esterase Small H (Negative) Urine WBC 7 H (0-5) /hpf Ur Squamous Epith Cells 5 H (0-4) /hpf Urine Mucus Rare H (None) /hpf Microbiology - Last 24 Hours (Table) 07/23/20 12:10 Nasal Screen MRSA/MSSA - Preliminary Nasal Swab Assessment and Plan Assessment: Triple vessel coronary artery disease Unstable angina secondary to above Pulmonary emphysema with fibrotic changes in the right lower lung History of lung cancer status post surgical resection Hypertension Peripheral vascular disease Hyperlipidemia Osteoarthritis Plan: This is a pleasant 75 years old female with triple-vessel coronary artery disease. Cardiothoracic surgery on the case and workup is under going for surgical intervention, pulmonary evaluated the patient preoperatively and she is low risk. Continue with heparin drip per knife grinder Vitas looks stable Labs and medication were reviewed.. Continue same treatment. Continue with symptomatic treatment. Resume home medication. Monitor lytes and vitals. DVT and GI prophylaxis. Further recommendationsas per clinical course of the patient DVT prophylaxis: Subcutaneous heparin GI Prophylaxis: Pepcid Prognosis is guarded
--- NOTE | 2020-07-24 13:15 | P.PN ---
Subjective Progress Note Date: 07/24/20 HISTORY OF PRESENT ILLNESS: 07/23/2020 75 year old female who follows with Dr. Alvarez, a branding specialist out of [facility] in [place]. Patient is status post cardiac cath with Dr. Larsen on 07/22/2020 revealing severe calcification of the coronary arteries, severe triple vessel coronary artery disease with significant disease in the proximal LAD, mid LAD, obtuse marginal branch and the right coronary artery. Cardiothoracic surgery has been consulted. Echocardiogram completed revealed ejection fraction 50-55%. Patient examined this morning at the bedside. She denies chest pain or pressure. Vital signs are stable. She is on room air with oxygen saturations greater than 92%. 07/24/2020 Patient examined this morning at the bedside. She denies chest pain or pressure. Denies shortness of breath. Cardiothoracic surgery is tentatively planning for surgery sometime next week per patient. Vital signs are stable. PHYSICAL EXAM: VITAL SIGNS: Reviewed. GENERAL: Well-developed in no acute distress. NECK: Supple. No JVD or thyromegaly LUNGS: Respirations even and unlabored. Lungs essentially clear to auscultation bilaterally. HEART: Regular rate and rhythm. S1 and S2 heard. EXTREMITIES: Normal range of motion. No clubbing or cyanosis. Peripheral pulses intact. No lower extremity edema. Right radial cath site with pulse present ASSESSMENT: Unstable angina, status post cardiac cath revealing triple vessel coronary di sease History of coronary artery disease with previous PCI Hypertension Hyperlipidemia History of lung cancer previous right lower lobectomy Peripheral arterial disease Former nicotine dependence PLAN: Continue current cardiac medications Continue telemetry monitoring Cardiothoracic surgery following. Patient to undergo CABG in the near future. Further recommendations pending patient course Nurse practitioner note has been reviewed by physician. Signing provider agrees with the documented findings, assessment, and plan of care. Objective - Vital Signs Vital signs: Vital Signs Temp 98.0 F 07/24/20 08:00 Pulse 70 07/24/20 08:00 Resp 18 07/24/20 08:00 BP 117/67 07/24/20 08:00 Pulse Ox 93 L 07/24/20 08:00 Intake & Output 07/23/20 07/24/20 07/24/20 18:59 06:59 18:59 Intake Total 1084 240 Output Total 800 800 400 Balance 284 -800 -160 Weight 81.6 kg Intake: Oral 1084 240 Output: Urine 800 800 400 Other: Voiding Method Toilet Toilet Toilet # Voids 1 - Labs CBC & Chem 7: 07/23/20 07:32 07/24/20 08:42 Labs: Abnormal Lab Results - Last 24 Hours (Table) 07/24/20 Range/Units 08:42 BUN 36 H (7-17) mg/dL Glucose 127 H (74-99) mg/dL Microbiology - Last 24 Hours (Table) 07/23/20 12:10 Nasal Screen MRSA/MSSA - Preliminary Nasal Swab
--- NOTE | 2020-07-24 15:09 | P.PN ---
Subjective Progress Note Date: 07/24/20 Principal diagnosis: Triple-vessel coronary artery disease. This is a 75-year-old female with history of multiple medical problems, she is primarily a patient of Dr. Derrcik Neal. Known history of coronary artery disease, previous DE and stent placement, history of peripheral vessel occlusive disease, history of lung cancer and previous right lower lobectomy hypertension, COPD, and strong family history of premature coronary artery disease. Patient presented to [facility] with chest pain and shortness of breath, she was noted to have elevated BNP and elevated troponins. Patient was found to have abnormal EKG with nonspecific ST and T-wave abnormalities, arrangements were made to transfer the patient to [facility], patient underwent cardiac catheterization, and demonstrated proximal LAD stenosis 85%, mid LAD stenosis 90%, first obtuse marginal branch of the circumflex was 70-80% stenosis. Right coronary artery stenosis of 99%. And there was diffuse intimal disease prior to the bifurcation into the PDA and PLV. Considering these abnormal findings on cardiac catheterization, cardiothoracic surgery was consulted, and the patient is scheduled to undergo myocardial revascularization sometime either late this week or next week patient has been on Plavix. Pulmonary-bartlett, the patient has no cough no wheezing no fever no chills no hemoptysis and her FEV1 is basically unremarkable. Patient used to smoke, but has not smoked since she was diagnosed with lung cancer and had previous lobectomy back in 2011 Reevaluated today on 07/24/20, patient remains on the cardiac floor, patient is doing quite well, relatively asymptomatic, chest x-ray and CT of the chest was reviewed, patient did have minimal fibrotic changes in the right lower lobe, overall the patient is doing great, and I have already cleared the patient for surgery. My understanding from the patient that she is scheduled to have surgery early next week. May or may not be discharged home, and that is to be decided upon by cardiology and cardiothoracic surgery on the case. Pulmonary- bartlett, patient is cleared for surgery and she is also cleared to go home if felt appropriate by other consultants. Objective - Vital Signs Vital signs: Vital Signs Temp 98.0 F 07/24/20 08:00 Pulse 70 07/24/20 08:00 Resp 18 07/24/20 08:00 BP 117/67 07/24/20 08:00 Pulse Ox 93 L 07/24/20 08:00 Intake & Output 07/23/20 07/24/20 07/24/20 18:59 06:59 18:59 Intake Total 1084 480 Output Total 800 800 400 Balance 284 -800 80 Weight 81.6 kg Intake: Oral 1084 480 Output: Urine 800 800 400 Other: Voiding Method Toilet Toilet Toilet # Voids 1 1 - Exam GENERAL: Revealed a 75-year-old female in no distress, extremely pleasant.. HEENT: PERRLA, EOMI, anicteric, moist mucous membranes, NECK: Supple no neck masses no thyromegaly. HEART: Normal S1 and S2, no S3 gallop. LUNGS: Better, chest expansion, clear breath sound bilaterally no crackles or rhonchi or wheezes. ABDOMEN: Soft nontender no megaly no rebound no guarding PSYCH: Normal mood affect and normal mental status examination. MUSCULOSKELETAL: No deformities noted limitation range of motion. NEUROLOGICAL: Alert and oriented 3, no gross focal neurologic deficits. LYMPHATICS: No cervical adenopathy. Skin: No rashes - Labs CBC & Chem 7: 07/23/20 07:32 07/24/20 08:42 Labs: Abnormal Lab Results - Last 24 Hours (Table) 07/24/20 Range/Units 08:42 BUN 36 H (7-17) mg/dL Glucose 127 H (74-99) mg/dL Microbiology - Last 24 Hours (Table) 07/23/20 12:10 Nasal Screen MRSA/MSSA - Preliminary Nasal Swab Assessment and Plan Assessment: Impression:Triple-vessel coronary artery disease symptoms of unstable angina. Remote History of non-small cell lung cancer and previous lobectomy. History of smoking/ex-smoker. Minimal COPD based on her PFT. Family history of premature coronary artery disease. Hypertension. Peripheral vessel occlusive disease Degenerative joint disease Dyslipidemia. Chronic insomnia. Recommendation: Cleared for surgery as scheduled. Reviewed CT findings. Again patient was cleared for surgery as scheduled We'll follow the patient on when necessary basis. Time with Patient: Less than 30
[2020-07-24] MEDS: HEPARIN SODIUM,PORCINE 5,000 UNIT/ML 1 ML VIAL SQ SCH ×2 (18:35→21:57)
[2020-07-24] MEDS: traZODone HCL 100 MG TAB PO SCH (21:55)
[2020-07-24] MEDS: FAMOTIDINE 20 MG TAB PO SCH (21:55)
[2020-07-24] MEDS: EZETIMIBE 10 MG TAB PO SCH (21:56)
[2020-07-24] MEDS: ATORVASTATIN 80 MG TAB PO SCH (21:56)
[2020-07-25] MEDS: NITROGLYCERIN OINT 1 INCH/GM PACKET TOPICAL SCH ×4 (01:07→23:40)
[2020-07-25] MEDS: carvediloL 12.5 MG TAB PO SCH ×2 (06:53→17:18)
[2020-07-25 08:13] LABS: HCT 34.2 % (34.0-46.0); HGB 10.9 gm/dL (11.4-16.0); MCH 29.5 pg (25.0-35.0); MCHC 31.8 g/dL (31.0-37.0); MCV 92.9 fL (80.0-100.0); Mean Platelet Volume 7.4; Platelet Count 292 k/uL (150-450); RBC 3.68 m/uL (3.80-5.40); RDW 12.5 % (11.5-15.5); WBC 6.2 k/uL (3.8-10.6)
[2020-07-25 08:23] LABS: African American GFR (CKD) >90 (>60 ml/min/1.73 sqM); Anion Gap 8 mmol/L; Blood Urea Nitrogen 32 mg/dL (7-17); Calcium 8.9 mg/dL (8.4-10.2); Carbon Dioxide 26 mmol/L (22-30); Chloride 104 mmol/L (98-107); Cholesterol 152 mg/dL (<200); Glucose 111 mg/dL (74-99); HDL Cholesterol 39 mg/dL (40-60); LDL Cholesterol,Calculated 85 mg/dL (0-99); Non-African American GFR(CKD) 87 (>60 ml/min/1.73 sqM); Potassium 3.7 mmol/L (3.5-5.1); Sodium 138 mmol/L (137-145); Triglycerides 140 mg/dL (<150)
--- NOTE | 2020-07-25 08:24 | P.PN ---
Subjective Progress Note Date: 07/25/20 Principal diagnosis: Triple-vessel coronary artery disease, unstable angina. History of coronary artery disease with previous myocardial infarction and stent placement, peripheral arterial disease with lower extremity stenting, lung cancer status post right lower lobectomy in 2012, hypertension, hyperlipidemia, COPD with previous tobacco dependence, anxiety/depression, family history of premature coronary artery disease The patient was seen and examined at the bedside. She denies any pain or unusual shortness of breath, she has been able to ambulate in her room without d ifficulty. Remains in normal sinus rhythm and hemodynamically stable. Our plan is for CABG on 07/27/2020. No new questions. Objective - Vital Signs Vital signs: Vital Signs Temp 98.2 F 07/25/20 07:57 Pulse 59 L 07/25/20 07:57 Resp 16 07/25/20 07:57 BP 107/63 07/25/20 07:57 Pulse Ox 93 L 07/25/20 07:57 Intake & Output 07/24/20 07/25/20 07/25/20 18:59 06:59 18:59 Intake Total 480 10 Output Total 400 300 Balance 80 -290 Weight 82.1 kg Intake: IV 10 Invasive Line 2 10 Oral 480 Output: Urine 400 300 Other: Voiding Method Toilet Toilet # Voids 1 1 - Constitutional General appearance: Present: cooperative, no acute distress - Respiratory Details: Lungs sounds diminished bilaterally. Respirations even, nonlabored. Currently on room air with oxygen saturation 94%. Able to achieve 1700 mL on her incentive spirometry. - Cardiovascular Details: S1, S2 present. Regular rate and rhythm, sinus rhythm to sinus bradycardia on telemetry with heart rate in the 50-60s. Palpable peripheral pulses bila terally. No edema present. No calf pain or tenderness noted. - Gastrointestinal Gastrointestinal Comment(s): Abdomen soft, nontender, nondistended. Active bowel sounds x 4 quadrants. Tolerating diet - Genitourinary Genitourinary Comment(s): Continues to void - Integumentary Integumentary Comment(s): Skin is warm and dry with evidence of good perfusion - Neurologic Neurologic: Present: CNII-XII intact - Musculoskeletal Musculoskeletal: Present: gait normal, strength equal bilaterally - Psychiatric Psychiatric: Present: A&O x's 3, appropriate affect, intact judgment & insight - Allied health notes Allied health notes reviewed: nursing - Labs CBC & Chem 7: 07/25/20 07:44 07/25/20 07:44 Labs: Abnormal Lab Results - Last 24 Hours (Table) 07/24/20 07/25/20 Range/Units 08:42 07:44 RBC 3.68 L (3.80-5.40) m/uL Hgb 10.9 L (11.4-16.0) gm/dL BUN 36 H (7-17) mg/dL Glucose 127 H (74-99) mg/dL Microbiology - Last 24 Hours (Table) 07/23/20 12:10 Nasal Screen MRSA/MSSA - Final Nasal Swab Assessment and Plan Assessment: 1. Triple-vessel coronary artery disease, unstable angina 2. History of coronary artery disease with previous myocardial infarction and stent placement 3. Peripheral arterial disease with lower extremity stenting 4. History of lung cancer status post right lower lobectomy 5. Hypertension 6. Hyperlipidemia, treated, cholesterol 152, LDL 85 7. COPD with previous tobacco dependence, preoperative FEV1 82% of predicted 8. Anxiety/depression 9. Family history of premature coronary artery disease Plan: 1. Continue ASA, statin, beta tran. Hold Plavix, last dose 07/22/20. Hold Pletal 2. Will hold CCB and ARB to prevent intra-and postoperative hypotension. Discussed with cardiology 3. Increase activity, ambulate as tolerated 4. Encourage incentive spirometry use 5. Our plan is for surgical myocardial revascularization with left internal mammary artery and endoscopic vein harvest by Dr. Alan 07/27/20, needs to be off Plavix for 5-7 days to prevent intra and post operative bleeding. 6. Continue medical management of other comorbidities per primary care 7. More recommendations to follow regarding timing of surgery Time with Patient: Greater than 30
--- NOTE | 2020-07-25 09:20 | P.PN ---
Subjective Progress Note Date: 07/25/20 Principal diagnosis: Severe triple-vessel coronary artery disease This is a 75-year-old female patient was admitted to the hospital with angina and underwent a heart catheterization which revealed severe triple-vessel coronary artery disease. The patient was seen by surgeon yesterday and the plan to pursue coronary artery that was grafting this coming Thursday. The echo reveal ed normal left ventricular systolic function was mild aortic stenosis The patient was seen this morning. She continues to be asymptomatic from a cardiac arrest standpoint of view. She denies any symptoms of chest pain or chest discomfort or shortness of breath. She is hemodynamically stable as well. Objective - Vital Signs Vital signs: Vital Signs Temp 98.2 F 07/25/20 07:57 Pulse 59 L 07/25/20 07:57 Resp 16 07/25/20 07:57 BP 107/63 07/25/20 07:57 Pulse Ox 93 L 07/25/20 07:57 Intake & Output 07/24/20 07/25/20 07/25/20 18:59 06:59 18:59 Intake Total 480 10 240 Output Total 400 300 Balance 80 -290 240 Weight 82.1 kg Intake: IV 10 Invasive Line 2 10 Oral 480 240 Output: Urine 400 300 Other: Voiding Method Toilet Toilet # Voids 1 1 - Constitutional General appearance: Present: no acute distress - Respiratory Respiratory: bilateral: CTA - Cardiovascular Rhythm: regular Heart sounds: normal: S1, S2 - Labs CBC & Chem 7: 07/25/20 07:44 07/25/20 07:44 Labs: Abnormal Lab Results - Last 24 Hours (Table) 07/24/20 07/25/20 07/25/20 Range/Units 08:42 07:44 07:44 RBC 3.68 L (3.80-5.40) m/uL Hgb 10.9 L (11.4-16.0) gm/dL BUN 36 H 32 H (7-17) mg/dL Glucose 127 H 111 H (74-99) mg/dL HDL Cholesterol 39 L (40-60) mg/dL Microbiology - Last 24 Hours (Table) 07/23/20 12:10 Nasal Screen MRSA/MSSA - Final Nasal Swab Assessment and Plan Assessment: Assessment #1 severe triple-vessel coronary artery disease #2 preserved left ventricular systolic function #3 hypertension #4 dyslipidemia Plan #1 continue the current medical regimen #2 the patient is going to have the surgery this coming Thursday
[2020-07-25] MEDS: SODIUM CHLORIDE 0.9% 1,000 ML IV SCH (09:24)
[2020-07-25] MEDS: ALPRAZolam 0.25 MG TAB PO SCH ×2 (09:25→20:27)
[2020-07-25] MEDS: ASPIRIN 81 MG PO SCH (09:25)
[2020-07-25] MEDS: HYDROcodone/APAP 5-325MG 1 EACH TAB PO SCH ×3 (09:27→20:35)
[2020-07-25] MEDS: CHOLECALCIFEROL 25 MCG (1000 IU) TABLET PO SCH (09:27)
[2020-07-25] MEDS: HEPARIN SODIUM,PORCINE 5,000 UNIT/ML 1 ML VIAL SQ SCH ×2 (09:27→20:34)
[2020-07-25] MEDS: CAPSAICIN 0.025% CREAM 60 GM TUBE TOPICAL SCH ×2 (09:27→20:35)
[2020-07-25] MEDS: FAMOTIDINE 20 MG TAB PO SCH ×2 (09:27→20:34)
[2020-07-25] MEDS: SERTRALINE 100 MG TAB PO SCH (09:28)
--- NOTE | 2020-07-25 13:52 | P.VSCSTY ---
Greater Saphenous Vein Mapping This is bilateral lower extremity greater saphenous vein mapping. Date of service: 07/23/2020 Vein quality and ultrasound appearance: We see no intraluminal thrombus or wall changes. Vein size groin right : 5 x 6.1 groin left: 3.1 x 3.3 High thigh right: 3.5 x 4.5 high thigh left: 2.2 x 2.6 Mid thigh right: 3.9 x 3.7 mid thigh left: 2.5 x 3.1 Above-knee right: 3.9 x 4.3 above- knee left: 2.7 x 2.9 Below knee right: 3.5 x 3.7 below-knee left: 2.3 x 2.4 Mid calf right: 2.6 x 3.2 mid calf left: 2.8 x 2.6 Ankle right: 3.4 x 3.3 ankle left: 1.4 x 2.0 Impression: Usable bilateral greater saphenous vein. Left ankle looks a bit small..
[2020-07-25] MEDS ORDERED: SENNOSIDES-DOCUSATE SODIUM 1 EACH TAB PO PRN (18:34)
[2020-07-25] MEDS: EZETIMIBE 10 MG TAB PO SCH (20:34)
[2020-07-25] MEDS: traZODone HCL 100 MG TAB PO SCH (20:34)
[2020-07-25] MEDS: ATORVASTATIN 80 MG TAB PO SCH (20:34)
--- NOTE | 2020-07-25 20:40 | P.PN ---
Subjective From the records: This is a pleasant 75-year-old patient of Dr. Derrick Neal. Chronic stable medical conditions include COPD, hyperlipidemia, hypertension, ostial arthritis, lung cancer 6 years ago, peripheral artery disease, coronary artery stent, peripheral stents, anxiety depression. Patient presented after she was having central chest pressure at home then went to both the shoulder blades for the arms. Patient became nauseated. No dizziness or lightheadedness. She shortness of breath. No perspiration. Symptoms most lost about 40 minutes she was taken to [facility]. She was similar episode about 2 weeks ago. Transferred down here. Has some lower extremity edema Subjective: 07/23/2020 This is a pleasant 60 years old female who presents with a stable angina and underwent cardiac cath by cardiology team showing severe triple vessel coronary artery disease. Because of these vascular surgery team were consulted and w orkup is initiated. Also pulmonary team on the case and patient was suspected to have right lower lo be pneumonia however no antibiotics were started and chest CT scant showing pulmonary emphysema with interstitial fibrotic changes more noticeable in the right lower lobe with no suspicious masses or aortic aneurysm. 07/24/2020 The patient is been evaluated for chest pain with cardiac cath showing triple vessel coronary artery disease, cardiothoracic surgery on the case as well as pulmonary who find her low risk for this Procedure. Also she underwent, and workup by surgical team. Currently she is lying in bed comfortable with no distress, no chest pain or dyspnea. Labs and vitals are reviewed, they are stable continue with aspirin and hold Plavix as per surgery team, Heparin drip was stopped so we'll start subcu heparin for DVT prophylaxis CT of the chest showing pulmonary emphysema and interstitial fibrotic changes in the right lower lobe rather than pneumonia as suspected and chest x-ray 07/25/2020 Patient is with triple-vessel coronary artery disease been evaluated by cardiothoracic surgery for bypass surgery and procedure, she still undergoing workup by cardiothoracic surgery team. Pulmonary. The patient for surgery as per their recommendation. Cardiology on the case. The patient herself is comfortable with no chest pain or dyspnea. Vitals and labs looks stable except for mild bradycardia. Plan is for CABG on this Thursday 07/27 Objective - Vital Signs Vital signs: Vital Signs Temp 97.9 F 07/25/20 11:27 Pulse 59 L 07/25/20 11:27 Resp 16 07/25/20 11:27 BP 109/81 07/25/20 11:27 Pulse Ox 94 L 07/25/20 11:27 Intake & Output 07/24/20 07/25/20 07/25/20 18:59 06:59 18:59 Intake Total 480 10 240 Output Total 400 300 200 Balance 80 -290 40 Weight 82.1 kg Intake: IV 10 Invasive Line 2 10 Oral 480 240 Output: Urine 400 300 200 Other: Voiding Method Toilet Toilet Toilet # Voids 1 1 - Exam GENERAL: The patient is alert and oriented x3, not in any acute distress. Well developed, well nourished. HEENT: Pupils are round and equally reacting to light. EOMI. No scleral icterus. No conjunctival pallor. Normocephalic, atraumatic. No pharyngeal erythema. No thyromegaly. CARDIOVASCULAR: S1 and S2 present. No murmurs, rubs, or gallops. PULMONARY: Chest is clear to auscultation, no wheezing or crackles. ABDOMEN: Soft, nontender, nondistended, normoactive bowel sounds. No palpable or ganomegaly. MUSCULOSKELETAL: No joint swelling or deformity. EXTREMITIES: No cyanosis, clubbing, or pedal edema. NEUROLOGICAL: Gross neurological examination did not reveal any focal deficits. SKIN: No rashes. no petechiae. - Labs CBC & Chem 7: 07/25/20 07:44 07/25/20 07:44 Labs: Abnormal Lab Results - Last 24 Hours (Table) 07/25/20 07/25/20 Range/Units 07:44 07:44 RBC 3.68 L (3.80-5.40) m/uL Hgb 10.9 L (11.4-16.0) gm/dL BUN 32 H (7-17) mg/dL Glucose 111 H (74-99) mg/dL HDL Cholesterol 39 L (40-60) mg/dL Microbiology - Last 24 Hours (Table) 07/23/20 12:10 Nasal Screen MRSA/MSSA - Final Nasal Swab Assessment and Plan Assessment: Triple vessel coronary artery disease Unstable angina secondary to above, currently patient with no chest pain Pulmonary emphysema with fibrotic changes in the right lower lung History of lung cancer status post surgical resection Hypertension Peripheral vascular disease Hyperlipidemia Osteoarthritis Plan: This is a pleasant 75 years old female with triple-vessel coronary artery disease. Cardiothoracic surgery on the case and workup is under going for surgical intervention, pulmonary evaluated the patient preoperatively and she is low risk. Continue with heparin drip per delivery and mail sorter Vitas looks stable Labs and medication were reviewed.. Continue same treatment. Continue with symptomatic treatment. Resume home medication. Monitor lytes and vitals. DVT and GI prophylaxis. Further recommendationsas per clinical course of the patient DVT prophylaxis: Subcutaneous heparin GI Prophylaxis: Pepcid Prognosis is guarded
[2020-07-26] MEDS: carvediloL 12.5 MG TAB PO SCH ×2 (06:42→17:06)
--- NOTE | 2020-07-26 07:50 | P.PN ---
Subjective Progress Note Date: 07/26/20 Principal diagnosis: Triple-vessel coronary artery disease, unstable angina. History of coronary artery disease with previous myocardial infarction and stent placement, peripheral arterial disease with lower extremity stenting, lung cancer status post right lower lobectomy in 2012, hypertension, hyperlipidemia, COPD with previous tobacco dependence, anxiety/depression, family history of premature coronary artery disease The patient was seen and examined at the bedside. She denies any pain or increased shortness of breath, she has been able to ambulate in her room without difficulty, remains on room air and actively using incentive spirometry. Remains in normal sinus rhythm and hemodynamically stable. Our plan is for CABG on 07/27/2020, NPO after midnight. No new questions. Objective - Vital Signs Vital signs: Vital Signs Temp 97.7 F 07/26/20 04:00 Pulse 67 07/26/20 04:00 Resp 16 07/26/20 04:00 BP 108/69 07/26/20 04:00 Pulse Ox 93 L 07/26/20 04:00 Intake & Output 07/25/20 07/26/20 07/26/20 18:59 06:59 18:59 Intake Total 480 240 Output Total 450 700 Balance 30 -460 Weight 83 kg Intake: Oral 480 240 Output: Urine 450 700 Other: Voiding Method Toilet Toilet # Voids 1 - Constitutional General appearance: Present: cooperative, no acute distress - Respiratory Details: Lungs sounds diminished bilaterally. Respirations even, nonlabored. Currently on room air with oxygen saturation 93%. Able to achieve 1500 mL on her incentive spirometry. - Cardiovascular Details: S1, S2 present. Regular rate and rhythm, sinus rhythm to sinus bradycardia on telemetry with heart rate in the 50-60s. Palpable peripheral pulses bilaterally. No edema present. No calf pain or tenderness noted. - Gastrointestinal Gastrointestinal Comment(s): Abdomen soft, nontender, nondistended. Active bowel sounds x 4 quadrants. Tolerating diet - Genitourinary Genitourinary Comment(s): Continues to void - Integumentary Integumentary Comment(s): Skin is warm and dry with evidence of good perfusion - Neurologic Neurologic: Present: CNII-XII intact - Musculoskeletal Musculoskeletal: Present: gait normal, strength equal bilaterally - Psychiatric Psychiatric: Present: A&O x's 3, appropriate affect, intact judgment & insight - Allied health notes Allied health notes reviewed: nursing - Labs CBC & Chem 7: 07/25/20 07:44 07/25/20 07:44 Labs: Abnormal Lab Results - Last 24 Hours (Table) 07/25/20 07/25/20 Range/Units 07:44 07:44 RBC 3.68 L (3.80-5.40) m/uL Hgb 10.9 L (11.4-16.0) gm/dL BUN 32 H (7-17) mg/dL Glucose 111 H (74-99) mg/dL HDL Cholesterol 39 L (40-60) mg/dL Assessment and Plan Assessment: 1. Triple-vessel coronary artery disease, unstable angina 2. History of coronary artery disease with previous myocardial infarction and stent placement 3. Peripheral arterial disease with lower extremity stenting 4. History of lung cancer status post right lower lobectomy 5. Hypertension 6. Hyperlipidemia, treated, cholesterol 152, LDL 85 7. COPD with previous tobacco dependence, preoperative FEV1 82% of predicted 8. Anxiety/depression 9. Family history of premature coronary artery disease Plan: 1. Continue ASA, statin, beta tran. Hold Plavix, last dose 07/22/20. Hold Pletal 2. Will hold CCB and ARB to prevent intra-and postoperative hypotension. Discussed with cardiology 3. Increase activity, ambulate as tolerated 4. Encourage incentive spirometry use 5. Our plan is for surgical myocardial revascularization with left internal mammary artery and endoscopic vein harvest by Dr. Alan 07/27/20. Nothing to eat or drink after midnight 6. Continue preoperative teaching 7. Continue medical management of other comorbidities per primary care 8. More recommendations to follow Time with Patient: Greater than 30
[2020-07-26 07:56] LABS: Basophils # (A) 0.1 k/uL (0-0.2); Basophils % (A) 1 %; Eosinophils # (A) 0.4 k/uL (0-0.7); Eosinophils % (A) 7 %; HGB 11.6 gm/dL (11.4-16.0); Lymphocytes # (A) 1.9 k/uL (1.0-4.8); Lymphocytes % (A) 36 %; MCH 30.3 pg (25.0-35.0); MCHC 32.1 g/dL (31.0-37.0); MCV 94.5 fL (80.0-100.0); Mean Platelet Volume 7.4; Monocytes # (A) 0.4 k/uL (0-1.0); Monocytes % (A) 7 %; Neutrophils # (A) 2.6 k/uL (1.3-7.7); Neutrophils % (A) 48 %; Platelet Count 287 k/uL (150-450); RBC 3.81 m/uL (3.80-5.40); RDW 12.5 % (11.5-15.5); WBC 5.4 k/uL (3.8-10.6)
[2020-07-26 07:57] LABS: ALT 14 U/L (4-34); AST 21 U/L (14-36); African American GFR (CKD) >90 (>60 ml/min/1.73 sqM); Albumin 3.9 g/dL (3.5-5.0); Alkaline Phosphatase 74 U/L (38-126); Anion Gap 6 mmol/L; Blood Urea Nitrogen 22 mg/dL (7-17); Calcium 9.2 mg/dL (8.4-10.2); Carbon Dioxide 25 mmol/L (22-30); Chloride 107 mmol/L (98-107); Glucose 89 mg/dL (74-99); Non-African American GFR(CKD) 88 (>60 ml/min/1.73 sqM); Potassium 4.9 mmol/L (3.5-5.1); Sodium 138 mmol/L (137-145); Total Bilirubin 0.7 mg/dL (0.2-1.3); Total Protein 6.6 g/dL (6.3-8.2)
[2020-07-26] MEDS: HYDROcodone/APAP 5-325MG 1 EACH TAB PO SCH ×2 (08:01→15:00)
[2020-07-26] MEDS: CHOLECALCIFEROL 25 MCG (1000 IU) TABLET PO SCH (08:01)
[2020-07-26] MEDS: ASPIRIN 81 MG PO SCH (08:01)
[2020-07-26] MEDS: FAMOTIDINE 20 MG TAB PO SCH ×2 (08:02→20:38)
[2020-07-26] MEDS: HEPARIN SODIUM,PORCINE 5,000 UNIT/ML 1 ML VIAL SQ SCH ×2 (08:02→20:41)
[2020-07-26] MEDS: NITROGLYCERIN OINT 1 INCH/GM PACKET TOPICAL SCH ×3 (08:02→15:06)
[2020-07-26] MEDS: ALPRAZolam 0.25 MG TAB PO SCH ×2 (08:02→20:43)
[2020-07-26] MEDS: SERTRALINE 100 MG TAB PO SCH (08:02)
[2020-07-26] MEDS: CAPSAICIN 0.025% CREAM 60 GM TUBE TOPICAL SCH ×2 (08:03→20:43)
[2020-07-26] MEDS: SODIUM CHLORIDE 0.9% 1,000 ML IV SCH (10:48)
--- NOTE | 2020-07-26 12:24 | P.PN ---
Subjective Progress Note Date: 07/26/20 HISTORY OF PRESENT ILLNESS: 07/23/2020 75 year old female who follows with Dr. Alvarez, a color specialist out of [place] in [place]. Patient is status post cardiac cath with Dr. Larsen on 07/22/2020 revealing severe calcification of the coronary arteries, severe triple vessel coronary artery disease with significant disease in the proximal LAD, mid LAD, obtuse marginal branch and the right coronary artery. Cardiothoracic surgery has been consulted. Echocardiogram completed revealed ejection fraction 50-55%. Patient examined this morning at the bedside. She denies chest pain or pressure. Vital signs are stable. She is on room air with oxygen saturations greater than 92%. 07/24/2020 Patient examined this morning at the bedside. She denies chest pain or pressure. Denies shortness of breath. Cardiothoracic surgery is tentatively planning for surgery sometime next week per patient. Vital signs are stable. 07/26/2020 Patient examined this morning at the bedside. She denies chest pain or pressure. She reports mild shortness of breath which is her baseline. Vital signs are stable. She is scheduled for open heart surgery tomorrow. PHYSICAL EXAM: VITAL SIGNS: Reviewed. GENERAL: Well-developed in no acute distress. NECK: Supple. No JVD or thyromegaly LUNGS: Respirations even and unlabored. Lungs essentially clear to auscultation bilaterally. HEART: Regular rate and rhythm. S1 and S2 heard. EXTREMITIES: Normal range of motion. No clubbing or cyanosis. Peripheral pulses intact. No lower extremity edema. Right radial cath site with pulse present ASSESSMENT: Unstable angina, status post cardiac cath revealing triple vessel coronary disease History of coronary artery disease with previous PCI Hypertension Hyperlipidemia History of lung cancer previous right lower lobectomy Peripheral arterial disease Former nicotine dependence PLAN: Continue current cardiac medications. CCB and ARB on hold due to CABG tomorrow. Continue telemetry monitoring Patient scheduled for CABG tomorrow with CTS. We will follow postoperatively and make further recommendations pending patient's clinical course. Nurse practitioner note has been reviewed by physician. Signing provider agrees with the documented findings, assessment, and plan of care. Objective - Vital Signs Vital signs: Vital Signs Temp 97.8 F 07/26/20 11:35 Pulse 62 07/26/20 11:37 Resp 16 07/26/20 11:35 BP 110/62 02/18/21 11:37 Pulse Ox 94 L 07/26/20 11:35 Intake & Output 07/25/20 07/26/20 07/26/20 18:59 06:59 18:59 Intake Total 480 240 180 Output Total 450 700 Balance 30 -460 180 Weight 83 kg Intake: Oral 480 240 180 Output: Urine 450 700 Other: Voiding Method Toilet Toilet Toilet # Voids 1 1 - Labs CBC & Chem 7: 07/26/20 07:12 07/26/20 07:12 Labs: Abnormal Lab Results - Last 24 Hours (Table) 07/26/20 07/26/20 Range/Units 07:12 07:12 BUN 22 H (7-17) mg/dL Crossmatch See Detail
[2020-07-26] MEDS ORDERED: MD COMMUNICATION TO PHARMACY 1 EACH MISC PO ONE ×3 (15:23)
[2020-07-26] MEDS: ATORVASTATIN 80 MG TAB PO SCH (20:38)
[2020-07-26] MEDS: EZETIMIBE 10 MG TAB PO SCH (20:38)
[2020-07-26] MEDS: traZODone HCL 100 MG TAB PO SCH (20:38)
--- NOTE | 2020-07-26 22:22 | P.PN ---
Subjective Progress Note Date: 07/26/20 This is a pleasant 75-year-old patient of Dr. Derrick Neal. Chronic stable medical conditions include COPD, hyperlipidemia, hypertension, ostial arthritis, lung cancer 6 years ago, peripheral artery disease, coronary artery stent, peripheral stents, anxiety depression. Patient presented after she was having central chest pressure at home then went to both the shoulder blades for the arms. Patient became nauseated. No dizziness or lightheadedness. She shortness of breath. No perspiration. Symptoms most lost about 40 minutes she was taken to [facility]. She was similar episode about 2 weeks ago. Transferred down here. Has some lower extremity edema Subjective: 07/23/2020 This is a pleasant 60 years old female who presents with a stable angina and underwent cardiac cath by cardiology team showing severe triple vessel coronary artery disease. Because of these vascular surgery team were consulted and workup is initiated. Also pulmonary team on the case and patient was suspected to have right lower lobe pneumonia however no antibiotics were started and chest CT scant showing pulmonary emphysema with interstitial fibrotic changes more noticeable in the right lower lobe with no suspicious masses or aortic aneurysm. 07/24/2020 The patient is been evaluated for chest pain with cardiac cath showing triple vessel coronary artery disease, cardiothoracic surgery on the case as well as pulmonary who find her low risk for this Procedure. Also she underwent, and workup by surgical team. Currently she is lying in bed comfortable with no distress, no chest pain or dyspnea. Labs and vitals are reviewed, they are stable continue with aspirin and hold Plavix as per surgery team, Heparin drip was stopped so we'll start subcu heparin for DVT prophylaxis CT of the chest showing pulmonary emphysema and interstitial fibrotic changes in the right lower lobe rather than pneumonia as suspected and chest x-ray 07/25/2020 Patient is with triple-vessel coronary artery disease been evaluated by cardiothoracic surgery for bypass surgery and procedure, she still undergoing workup by cardiothoracic surgery team. Pulmonary. The patient for surgery as per their recommendation. Cardiology on the case. The patient herself is comfortable with no chest pain or dyspnea. Vitals and labs looks stable except for mild bradycardia. Plan is for CABG on this Thursday 07/2707/26/2020 Patient is currently resting in the bed comfortably. Denied any complaints of chest pain. Mild shortness of breath at baseline. No fever no chills. Laboratory data within normal limits. Patient is scheduled for coronary artery bypass graft tomorrow.. Active Medications Generic Name Dose Route Start Last Admin Trade Name Freq PRN Reason Stop Dose Admin Hydrocodone Bitart/Acetaminophen 1 each 07/21/20 09:00 07/26/20 15:00 Hydrocodone/Apap 5-325mg 1 Each Tab PO 1 each TID INÉS Administration Alprazolam 0.25 mg 07/21/20 09:00 07/26/20 20:43 Alprazolam 0.25 Mg Tab PO Not Given BID INÉS Alprazolam 0.25 mg 07/22/20 12:50 07/26/20 15:00 Alprazolam 0.25 Mg Tab PO 0.25 mg Q6HR PRN Administration Mild Anxiety Alprazolam 0.5 mg 07/22/20 12:50 Alprazolam 0.5 Mg Tab PO Q6HR PRN Moderate Anxiety Aspirin 81 mg 07/23/20 09:00 07/26/20 08:01 Aspirin 81 Mg PO 81 mg DAILY INÉS Administration Aspirin 325 mg 07/27/20 05:00 Aspirin 325 Mg Tab PO 07/27/20 05:01 ONCE ONE Atorvastatin Calcium 80 mg 07/21/20 21:00 07/26/20 20:38 Atorvastatin 80 Mg Tab PO 80 mg HS INÉS Administration Atorvastatin Calcium 10 mg 07/27/20 05:00 Atorvastatin 10 Mg Tab PO 07/27/20 05:01 ONCE ONE Calcium Chloride 1,000 mg 07/27/20 06:00 Calcium Chloride 100 Mg/Ml 10 Ml Syringe IVP 07/27/20 06:01 ONCE ONE Capsaicin 1 applic 07/21/20 09:00 07/26/20 20:43 Capsaicin 0.025% Cream 60 Gm Tube TOPICAL Not Given BID [facility] Carvedilol 12.5 mg 07/21/20 09:00 07/26/20 17:06 Carvedilol 12.5 Mg Tab PO 12.5 mg BID-W/MEALS INÉS Administration Chlorhexidine Gluconate 15 ml 07/27/20 06:00 Chlorhexidine Gluconate 15 Ml Cup MUCOUS MEM 07/27/20 06:01 ONCE ONE Cholecalciferol 25 mcg 07/21/20 09:00 07/26/20 08:01 Cholecalciferol 25 Mcg (1000 Iu) Tablet PO 25 mcg DAILY INÉS Administration Ezetimibe 10 mg 07/21/20 21:00 07/26/20 20:38 Ezetimibe 10 Mg Tab PO 10 mg HS INÉS Administration Famotidine 20 mg 07/24/20 21:00 07/26/20 20:38 Famotidine 20 Mg Tab PO 20 mg Q12HR INÉS Administration Heparin Sodium (Porcine) 5,000 unit 07/24/20 12:45 07/26/20 20:41 Heparin Sodium,Porcine 5,000 Unit/Ml 1 Ml Vial SQ 5,000 unit Q12HR INÉS Administration Heparin Sodium (Porcine) 10,000 unit 07/27/20 06:00 Heparin Sodium 1,000 Un/Ml (10ml Vl) IV 07/27/20 06:01 ONCE ONE Heparin Sodium (Porcine) 30,000 unit 07/27/20 06:00 Heparin Sodium,Porcine 30 Ml 1,000 Unit/Ml Vial IV 07/27/20 06:01 ONCE ONE Heparin Sodium (Porcine) 30,000 unit 07/27/20 06:00 Heparin Sodium,Porcine 30 Ml 1,000 Unit/Ml Vial IV 07/27/20 06:01 ONCE ONE Heparin Sodium (Porcine) 30,000 unit 07/27/20 06:00 Heparin Sodium,Porcine 30 Ml 1,000 Unit/Ml Vial IV 07/27/20 06:01 ONCE ONE Sodium Chloride 1,000 mls @ 20 mls/hr 07/21/20 08:30 07/26/20 10:48 Saline 0.9% IV Not Given .Q24H INÉS Heparin Sodium (Porcine) 5,000 501 mls @ 0 mls/hr 07/27/20 06:00 unit/ Sodium Chloride IV 07/27/20 06:01 ONCE ONE As Directed Protamine Sulfate 250 mg/ IV 25 mls @ 0 mls/hr 07/27/20 06:00 Solution IV 07/27/20 06:01 ONCE ONE As Directed Nitroglycerin/Dextrose 50 mg/ 250 mls @ 1.5 mls/hr 07/27/20 06:00 IV Solution IV .Q24H INÉS Protocol 5 MCG/MIN Albumin Human 50 ml/ IV 50 mls @ 100 mls/hr 07/27/20 06:00 Solution IVPB 07/27/20 06:29 ONCE ONE Albumin Human 50 ml/ IV 50 mls @ 100 mls/hr 07/27/20 06:00 Solution IVPB 07/27/20 06:29 ONCE ONE Clevidipine 25 mg/ IV Solution 50 mls @ 2 mls/hr 07/27/20 06:00 IV .Q24H INÉS Protocol 1 MG/HR Phenylephrine HCl 40 mg/ 254 mls @ 0 mls/hr 07/27/20 06:00 Sodium Chloride IV 07/27/20 06:01 .Q0M ONE Protocol Per Protocol Albumin Human 500 ml/ IV 500 mls @ 250 mls/hr 07/27/20 06:00 Solution IVPB 07/27/20 07:59 ONCE ONE Albumin Human 500 ml/ IV 500 mls @ 250 mls/hr 07/27/20 06:00 Solution IVPB 07/27/20 07:59 ONCE ONE Albumin Human 500 ml/ IV 500 mls @ 250 mls/hr 07/27/20 06:00 Solution IVPB 07/27/20 07:59 ONCE ONE Albumin Human 500 ml/ IV 500 mls @ 250 mls/hr 07/27/20 06:00 Solution IVPB 07/27/20 07:59 ONCE ONE Albumin Human 500 ml/ IV 500 mls @ 250 mls/hr 07/27/20 06:00 Solution IVPB 07/27/20 07:59 ONCE ONE Albumin Human 500 ml/ IV 500 mls @ 250 mls/hr 07/27/20 06:00 Solution IVPB 07/27/20 07:59 ONCE ONE Norepinephrine Bitartrate 4 mg 254 mls @ 0 mls/hr 07/27/20 06:00 / Sodium Chloride IV .Q0M INÉS Protocol Titrate Propofol 1,000 mg/ IV Solution 100 mls @ 0 mls/hr 07/27/20 06:00 IV .Q0M PRN Per Protocol Protocol Titrate Lactated Ringer's 1,000 mls @ 10 mls/hr 07/27/20 06:00 Lactated Ringers IV .Q24H INÉS Cefazolin Sodium 2 gm/ Sodium 50 mls @ 100 mls/hr 07/27/20 06:00 Chloride IVPB 07/27/20 06:29 ONCE ONE Cefazolin Sodium 1,000 mg/ 1,000 mls @ 999 mls/hr 07/27/20 06:00 Sodium Chloride IRRIGATION 07/27/20 07:00 ONCE ONE Cefazolin Sodium 2 gm/ Sodium 50 mls @ 100 mls/hr 07/27/20 06:00 Chloride IVPB 07/27/20 06:29 ONCE ONE Potassium Chloride 110 meq/ 1,109 mls @ 0 mls/hr 07/27/20 06:00 Magnesium Sulfate 16 meq/ IV Sodium Bicarbonate 40 ml/ .Q0M INÉS Lidocaine HCl 100 mg/ Dextrose /Water Per Protocol Potassium Chloride 25 meq/ 1,073.25 mls @ 0 mls/hr 07/27/20 06:00 Sodium Chloride 27 meq/ IV Magnesium Sulfate 16 meq/ .Q0M INÉS Sodium Bicarbonate 40 ml/ Lidocaine HCl 100 mg/ Dextrose /Water Per Protocol Tranexamic Acid 2,000 mg/ 200 mls @ 0 mls/hr 07/27/20 06:00 Sodium Chloride IV 07/27/20 06:01 .Q0M ONE Protocol Per Protocol Papaverine HCl 360 mg/ Sodium 102 mls @ 0 mls/hr 07/27/20 06:00 Chloride IV 07/27/20 06:01 ONCE ONE As Directed Insulin Human Regular 100 unit 100 mls @ 0 mls/hr 07/27/20 06:00 / Sodium Chloride IV .Q0M [facility] Protocol Titrate Magnesium Sulfate 16.24 meq 07/27/20 06:00 Magnesium Sulfate Syg 4.06 Meq/Ml Syringe IV 07/27/20 06:01 ONCE ONE Mannitol 12.5 gm 07/27/20 06:00 Mannitol 25% 12.5 Gm/50 Ml Vial IV 07/27/20 06:01 ONCE ONE Mannitol 12.5 gm 07/27/20 06:00 Mannitol 25% 12.5 Gm/50 Ml Vial IV 07/27/20 06:01 ONCE ONE Metoprolol Tartrate 12.5 mg 07/27/20 06:00 Metoprolol Tartrate 12.5 Mg Tab PO 07/27/20 06:01 ONCE ONE Miscellaneous Information 1 each 07/23/20 10:45 Potassium Replacement Protocol 1 Each Misc MISCELLANE DAILY PRN Per Protocol Protocol Nitroglycerin 1 inch 07/21/20 16:00 07/26/20 15:06 Nitroglycerin Oint 1 Inch/Gm Packet TOPICAL Not Given Q8HR [facility] Nitroglycerin 0.4 mg 07/22/20 12:50 Nitroglycerin Sl Tabs 0.4 Mg Tab SUBLINGUAL Q5M PRN Chest Pain Nitroglycerin/Dextrose 1 mg 07/27/20 06:00 Nitroglycerin-D5w Pmx 25 Mg/250 Ml Btl IV 07/27/20 06:01 ONCE ONE Phenylephrine HCl 0 mg 07/27/20 06:00 Phenylephrine 10 Mg/Ml Vial IV 07/27/20 06:01 ONCE ONE Protamine Sulfate 250 mg 07/27/20 06:00 Protamine Sulfate 10 Mg/Ml 25 Ml Vial IV 07/27/20 06:01 ONCE ONE Senna/Docusate Sodium 1 each 07/25/20 18:34 07/25/20 18:44 Sennosides-Docusate Sodium 1 Each Tab PO 1 each BID PRN Administration Constipation Sertraline HCl 100 mg 07/21/20 09:00 07/26/20 08:02 Sertraline 100 Mg Tab PO 100 mg DAILY INÉS Administration Sodium Bicarbonate 50 ml 07/27/20 06:00 Sodium Bicarb 8.4% 50 Ml Syr (1 Meq/Ml) IV 07/27/20 06:01 ONCE ONE Trazodone HCl 100 mg 07/22/20 21:00 07/26/20 20:38 Trazodone Hcl 100 Mg Tab PO 100 mg HS INÉS Administration Objective - Vital Signs Vital signs: Vital Signs Temp 97.8 F 07/26/20 11:35 Pulse 62 07/26/20 13:26 Resp 16 07/26/20 13:26 BP 110/62 07/26/20 11:37 Pulse Ox 94 L 07/26/20 11:35 Intake & Output 07/25/20 07/26/20 07/26/20 18:59 06:59 18:59 Intake Total 480 240 420 Output Total 450 700 Balance 30 -460 420 Weight 83 kg Intake: Oral 480 240 420 Output: Urine 450 700 Other: Voiding Method Toilet Toilet Toilet # Voids 1 1 - Exam - Exam GENERAL: The patient is alert and oriented x3, not in any acute distress. Well developed, well nourished. HEENT: Pupils are round and equally reacting to light. EOMI. No scleral icterus. No conjunctival pallor. Normocephalic, atraumatic. No pharyngeal erythema. No thyromegaly. CARDIOVASCULAR: S1 and S2 present. No murmurs, rubs, or gallops. PULMONARY: Chest is clear to auscultation, no wheezing or crackles. ABDOMEN: Soft, nontender, nondistended, normoactive bowel sounds. No palpable organomegaly. MUSCULOSKELETAL: No joint swelling or deformity. EXTREMITIES: No cyanosis, clubbing, or pedal edema. NEUROLOGICAL: Gross neurological examination did not reveal any focal deficits. SKIN: No rashes. no petechiae. - Labs CBC & Chem 7: 07/26/20 07:12 07/26/20 07:12 Labs: Abnormal Lab Results - Last 24 Hours (Table) 07/26/20 07/26/20 Range/Units 07:12 07:12 BUN 22 H (7-17) mg/dL Crossmatch See Detail Assessment and Plan Assessment: Triple vessel coronary artery disease Unstable angina secondary to above, currently patient with no chest pain Pulmonary emphysema with fibrotic changes in the right lower lung History of lung cancer status post surgical resection Hypertension Peripheral vascular disease Hyperlipidemia Osteoarthritis Plan: This is a pleasant 75 years old female with triple-vessel coronary artery disease. Cardiothoracic surgery on the case and workup is under going for surgical intervention, pulmonary evaluated the patient preoperatively and she is low risk. Continue with heparin drip per crystal grinder Vitas looks stable Labs and medication were reviewed.. Continue same treatment. Continue with symptomatic treatment. Resume home medication. Monitor lytes and vitals. DVT and GI prophylaxis. Further recommendationsas per clinical course of the patient DVT prophylaxis: Subcutaneous heparin GI Prophylaxis: Pepcid Prognosis is guarded Time with Patient: Greater than 30
[2020-07-27] MEDS: HYDROcodone/APAP 5-325MG 1 EACH TAB PO SCH ×2 (04:45→04:48)
[2020-07-27] MEDS ORDERED: ASPIRIN 325 MG TAB PO ONE (05:00)
[2020-07-27] MEDS ORDERED: ATORVASTATIN 10 MG TAB PO ONE (05:00)
[2020-07-27 05:19] LABS: Glucose,Whole Blood 103 mg/dL (75-99)
[2020-07-27] MEDS ORDERED: LACTATED RINGERS 1,000 ML IV ONE (05:45)
[2020-07-27] MEDS ORDERED: PHENYLEPHRINE 40 MG in SODIUM CHLORIDE 0.9% 250 ML IV ONE (06:00)
[2020-07-27] MEDS ORDERED: MAGNESIUM SULFATE SYG 4.06 MEQ/ML SYRINGE IV ONE (06:00)
[2020-07-27] MEDS ORDERED: INSULIN REGULAR 100 UNIT in SODIUM CHLORIDE 0.9% 100 ML IV SCH ×2 (06:00→14:15)
[2020-07-27] MEDS ORDERED: DEXTROSE 5% IN WATER 1,000 ML with POTASSIUM CHLORIDE 110 MEQ, MAGNESIUM SULFATE 16 MEQ... IV SCH ×5 (06:00)
[2020-07-27] MEDS ORDERED: CLEVIDIPINE BUTYRATE 25 MG in EMPTY BAG 1 BAG IV SCH (06:00)
[2020-07-27] MEDS ORDERED: TRANEXAMIC ACID 2,000 MG in SODIUM CHLORIDE 0.9% 80 ML IV ONE (06:00)
[2020-07-27] MEDS ORDERED: SODIUM BICARB 8.4% 50 ML SYR (1 MEQ/ML) IV ONE (06:00)
[2020-07-27] MEDS ORDERED: NITROGLYCERIN-D5W PMX 50 MG in DEXTROSE/WATER 1 250ML.BAG IV SCH ×2 (06:00→14:15)
[2020-07-27] MEDS ORDERED: DEXTROSE 5% IN WATER 1,000 ML with POTASSIUM CHLORIDE 25 MEQ, SODIUM CHLORIDE 4MEQ/ML V... IV SCH ×6 (06:00)
[2020-07-27] MEDS ORDERED: CALCIUM CHLORIDE 100 MG/ML 10 ML SYRINGE IVP ONE (06:00)
[2020-07-27] MEDS ORDERED: HEPARIN SODIUM,PORCINE 5,000 UNIT in SODIUM CHLORIDE 0.9% 500 ML 500 ML IV ONE (06:00)
[2020-07-27] MEDS ORDERED: NOREPINEPHRINE 4 MG in SODIUM CHLORIDE 0.9% 250 ML IV SCH (06:00)
[2020-07-27] MEDS ORDERED: CHLORHEXIDINE GLUCONATE 15 ML CUP MUCOUS MEM ONE (06:00)
[2020-07-27] MEDS ORDERED: METOPROLOL TARTRATE 12.5 MG TAB PO ONE (06:00)
[2020-07-27] MEDS ORDERED: HEPARIN SODIUM 1,000 UN/ML (10ML VL) IV ONE (06:00)
[2020-07-27] MEDS ORDERED: ceFAZolin 1,000 MG in SODIUM CHLORIDE 0.9% IRRIGATIO 1,000 ML IRRIGATION ONE (06:00)
[2020-07-27] MEDS ORDERED: LACTATED RINGERS 1,000 ML IV SCH (06:00)
[2020-07-27] MEDS ORDERED: ALBUMIN HUMAN 5% 500 ML in EMPTY BAG 1 BAG IVPB ONE ×6 (06:00)
[2020-07-27] MEDS ORDERED: NITROGLYCERIN-D5W PMX 25 MG/250 ML BTL IV ONE (06:00)
[2020-07-27] MEDS ORDERED: ALBUMIN HUMAN 25% 50 ML in EMPTY BAG 1 BAG IVPB ONE (06:00)
[2020-07-27] MEDS ORDERED: PAPAVERINE 360 MG in SODIUM CHLORIDE 0.9% 90 ML IV ONE (06:00)
[2020-07-27] MEDS ORDERED: MANNITOL 25% 12.5 GM/50 ML VIAL IV ONE ×2 (06:00)
[2020-07-27] MEDS ORDERED: PHENYLEPHRINE 10 MG/ML VIAL IV ONE (06:00)
[2020-07-27] MEDS ORDERED: PROTAMINE SULFATE 10 MG/ML 25 ML VIAL IV ONE ×2 (06:00→07:49)
[2020-07-27] MEDS ORDERED: PROTAMINE SULFATE 250 MG in EMPTY BAG 1 BAG IV ONE (06:00)
[2020-07-27] MEDS ORDERED: ALBUMIN HUMAN 5% (25gm) 500 ML VIAL IVPB ONE (07:49)
[2020-07-27] MEDS ORDERED: WATER FOR INJECTION, STERILE 10 ML VIAL IV ONE (07:49)
[2020-07-27] MEDS ORDERED: CALCIUM CHLORIDE 100 MG/ML 10 ML SYRINGE ONE (07:49)
[2020-07-27] MEDS ORDERED: SODIUM CHLORIDE 0.9% IRRIG 1,000 ML BTL IRRIGATION ONE (07:49)
[2020-07-27] MEDS ORDERED: SODIUM CHLORIDE 0.9% 250 ML BAG ONE (07:49)
[2020-07-27] MEDS ORDERED: TRANEXAMIC ACID 1,000 MG/10 ML VIAL ONE (07:49)
[2020-07-27] MEDS ORDERED: ELECTROLYTE-R (PH 7.4) 1,000 ML IV.SOLN IV ONE (07:49)
[2020-07-27] MEDS ORDERED: PROPOFOL 10 MG/ML 20 ML VIAL IV ONE (07:49)
[2020-07-27] MEDS ORDERED: PHENYLEPHRINE-0.9% NACL SYG 1,000 MCG/10 ML SYRINGE ONE (07:49)
[2020-07-27] MEDS ORDERED: VECURONIUM 10 MG VIAL IV ONE (07:49)
[2020-07-27] MEDS ORDERED: NITROGLYCERIN-D5W PMX 50 MG/250 ML BOTTLE IV ONE (07:49)
[2020-07-27] MEDS ORDERED: MIDAZOLAM 2 MG/2 ML VIAL ONE (07:49)
[2020-07-27] MEDS ORDERED: GLYCOPYRROLATE 0.2 MG/ML 2 ML VIAL ONE (07:49)
[2020-07-27] MEDS ORDERED: fentaNYL (PF) 50 MCG/ML 50 ML VIAL ONE (07:49)
[2020-07-27] MEDS ORDERED: LIDOCAINE 2% SYG (PF) 100 MG/5 ML ONE (07:49)
[2020-07-27] MEDS ORDERED: fentaNYL (PF) 50 MCG/ML 2 ML AMP ONE (07:49)
[2020-07-27] MEDS ORDERED: HEPARIN SODIUM,PORCINE 10,000 UNIT/ML 1 ML VIAL ONE (07:49)
[2020-07-27] MEDS ORDERED: MAGNESIUM SULFATE 4 MEQ/ML 10ML VIAL ONE (07:49)
[2020-07-27 08:44] LABS: ABG Base Excess 0.2 mmol/L; ABG Glucose Whole Blood 91 mg/dL (75-99); ABG HCO3 25 mmol/L (21-25); ABG Hematocrit 30 % (34.0-46.0); ABG Ionized Calcium 4.8 mg/dL (4.5-5.3); ABG Lactic Acid Whole Blood 1.1 mmol/L (0.5-1.6); ABG PCO2 42 mmHg (35-45); ABG PH 7.39 (7.35-7.45); ABG Potassium Whole Blood 4.5 mmol/L (3.4-4.5); ABG Sodium Whole Blood 141 mmol/L (135-146); ABG TCO2 27 mmol/L (19-24)
[2020-07-27 10:07] LABS: ABG Base Excess 0.1 mmol/L; ABG Glucose Whole Blood 112 mg/dL (75-99); ABG HCO3 26 mmol/L (21-25); ABG Hematocrit 29 % (34.0-46.0); ABG Ionized Calcium 4.8 mg/dL (4.5-5.3); ABG Lactic Acid Whole Blood 0.9 mmol/L (0.5-1.6); ABG Oxygen Saturation 99.1 % (94-97); ABG PCO2 45 mmHg (35-45); ABG PH 7.37 (7.35-7.45); ABG PO2 127 mmHg (83-108); ABG Potassium Whole Blood 4.4 mmol/L (3.4-4.5); ABG Sodium Whole Blood 140 mmol/L (135-146); ABG TCO2 27 mmol/L (19-24)
[2020-07-27 11:01] LABS: ABG Base Excess 0.1 mmol/L; ABG Glucose Whole Blood 190 mg/dL (75-99); ABG HCO3 24 mmol/L (21-25); ABG Lactic Acid Whole Blood 1.2 mmol/L (0.5-1.6); ABG PCO2 37 mmHg (35-45); ABG PH 7.43 (7.35-7.45); ABG Potassium Whole Blood 5.3 mmol/L (3.4-4.5); ABG Sodium Whole Blood 134 mmol/L (135-146); ABG TCO2 26 mmol/L (19-24)
[2020-07-27 11:02] LABS: ABG Ionized Calcium 4.1 mg/dL (4.5-5.3)
[2020-07-27 11:30] LABS: ABG Glucose Whole Blood 164 mg/dL (75-99); ABG HCO3 25 mmol/L (21-25); ABG Ionized Calcium 4.3 mg/dL (4.5-5.3); ABG Lactic Acid Whole Blood 1.6 mmol/L (0.5-1.6); ABG PCO2 39 mmHg (35-45); ABG PH 7.41 (7.35-7.45); ABG PO2 367 mmHg (83-108); ABG Potassium Whole Blood 5.2 mmol/L (3.4-4.5); ABG Sodium Whole Blood 136 mmol/L (135-146); ABG TCO2 26 mmol/L (19-24)
[2020-07-27 12:12] LABS: ABG Base Excess 0.1 mmol/L; ABG Glucose Whole Blood 193 mg/dL (75-99); ABG HCO3 25 mmol/L (21-25); ABG Ionized Calcium 4.4 mg/dL (4.5-5.3); ABG Lactic Acid Whole Blood 1.6 mmol/L (0.5-1.6); ABG PCO2 39 mmHg (35-45); ABG PH 7.41 (7.35-7.45); ABG PO2 374 mmHg (83-108); ABG Potassium Whole Blood 5.3 mmol/L (3.4-4.5); ABG Sodium Whole Blood 136 mmol/L (135-146); ABG TCO2 26 mmol/L (19-24)
[2020-07-27 12:33] LABS: ABG Base Excess -0.3 mmol/L; ABG Glucose Whole Blood 170 mg/dL (75-99); ABG HCO3 25 mmol/L (21-25); ABG Ionized Calcium 4.3 mg/dL (4.5-5.3); ABG Lactic Acid Whole Blood 1.6 mmol/L (0.5-1.6); ABG PCO2 40 mmHg (35-45); ABG Sodium Whole Blood 136 mmol/L (135-146); ABG TCO2 26 mmol/L (19-24)
[2020-07-27 13:52] LABS: ABG Base Excess -1.2 mmol/L; ABG Glucose Whole Blood 117 mg/dL (75-99); ABG HCO3 24 mmol/L (21-25); ABG Hematocrit 25 % (34.0-46.0); ABG Ionized Calcium 4.7 mg/dL (4.5-5.3); ABG Lactic Acid Whole Blood 1.1 mmol/L (0.5-1.6); ABG PCO2 44 mmHg (35-45); ABG PH 7.35 (7.35-7.45); ABG PO2 337 mmHg (83-108); ABG Potassium Whole Blood 4.3 mmol/L (3.4-4.5); ABG Sodium Whole Blood 139 mmol/L (135-146); ABG TCO2 26 mmol/L (19-24)
[2020-07-27 14:01] LABS: ABG PO2 425 mmHg (83-108)
[2020-07-27 14:02] LABS: ABG Hematocrit 21 % (34.0-46.0)
[2020-07-27 14:02] LABS: ABG Hematocrit 19 % (34.0-46.0); ABG PO2 >420 mmHg (83-108)
[2020-07-27 14:03] LABS: ABG Hematocrit 21 % (34.0-46.0); ABG PO2 >420 mmHg (83-108)
[2020-07-27 14:03] LABS: ABG Hematocrit 21 % (34.0-46.0)
[2020-07-27] MEDS ORDERED: Phosphorus Replacement Protoco 1 EACH MISC MISCELLANE PRN (14:15)
[2020-07-27] MEDS ORDERED: ALBUMIN HUMAN 5% 250 ML in EMPTY BAG 1 BAG IVPB PRN (14:15)
[2020-07-27] MEDS ORDERED: hydrALAZINE HCL 20 MG/ML 1 ML VIAL IVP PRN (14:15)
[2020-07-27] MEDS ORDERED: METOCLOPRAMIDE 5 MG/ML 2 ML VIAL IVP PRN (14:15)
[2020-07-27] MEDS ORDERED: AMIODARONE 360 MG in DEXTROSE 5% IN WATER 200 ML IV PRN ×2 (14:15)
[2020-07-27] MEDS ORDERED: DEXMEDETOMIDINE/0.9% NACL(PMX) 400 MCG in EMPTY BAG 1 BAG IV SCH (14:15)
[2020-07-27] MEDS ORDERED: CALCIUM GLUCONATE 2 GM in SODIUM CHLORIDE 0.9% 100 ML IVPB PRN (14:15)
[2020-07-27] MEDS ORDERED: BENZOCAINE/MENTHOL LOZENG 1 EACH LOZENGE MUCOUS MEM PRN (14:15)
[2020-07-27] MEDS ORDERED: Magnesium Replacement Protocol 1 EACH MISC MISCELLANE PRN (14:15)
[2020-07-27] MEDS ORDERED: Potassium Replacement Protocol 1 EACH MISC MISCELLANE PRN (14:15)
[2020-07-27] MEDS ORDERED: AMIODARONE 450 MG in DEXTROSE 5% IN WATER 250 ML IV PRN ×2 (14:15)
[2020-07-27] MEDS ORDERED: ALBUMIN HUMAN 5% 250 ML IVPB ONE (14:18)
[2020-07-27] MEDS: SERTRALINE 100 MG TAB PO SCH (14:31)
[2020-07-27 14:53] LABS: Glucose,Whole Blood 130 mg/dL (75-99)
--- NOTE | 2020-07-27 15:13 | XR ---
EXAMINATION TYPE: XR chest 1V portable DATE OF EXAM: 07/27/2020 HISTORY: Post Op CABG COMPARISON: 07/22/2020 TECHNIQUE: Single view of the chest is submitted. FINDINGS: Endotracheal tube, NG tube, SG catheter, mediastianal drains and chest tubes are appropriately placed . Post operative changes of CABG. No sizeable pneumothorax. Scattered Pleural-parencymal opacities may reflect atelectasis. The heart is not enlarged. IMPRESSION: 1. Post operative changes of CABG.
[2020-07-27 15:26] LABS: ABG Base Excess -4.4 mmol/L; ABG HCO3 22 mmol/L (21-25); ABG Oxygen Saturation 99.2 % (94-97); ABG PCO2 45 mmHg (35-45); ABG PO2 136 mmHg (83-108); ABG TCO2 23 mmol/L (19-24); Allen Test Performed? Yes
--- NOTE | 2020-07-27 15:59 | P.PN ---
Subjective Progress Note Date: 07/20/20 Principal diagnosis: Triple-vessel coronary artery disease. This is a 75-year-old female with history of multiple medical problems, she is primarily a patient of Dr. Derrick Neal. Known history of coronary artery disease, previous ID and stent placement, history of peripheral vessel occlusive disease, history of lung cancer and previous right lower lobectomy hypertension, COPD, and strong family history of premature coronary artery disease. Patient presented to [facility] with chest pain and shortness of breath, she was noted to have elevated BNP and elevated troponins. Patient was found to have abnormal EKG with nonspecific ST and T-wave abnormalities, arrangements were made to transfer the patient to [facility], patient underwent cardiac catheterization, and demonstrated proximal LAD stenosis 85%, mid LAD stenosis 90%, first obtuse marginal branch of the circumflex was 70-80% stenosis. Right coronary artery stenosis of 99%. And there was diffuse intimal disease prior to the bifurcation into the PDA and PLV. Considering these abnormal findings on cardiac catheterization, cardiothoracic surgery was consulted, and the patient is scheduled to undergo myocardial revascularization sometime either late this week or next week patient has been on Plavix. Pulmonary-[place], the patient has no cough no wheezing no fever no chills no hemoptysis and her FEV1 is basically unremarkable. Patient used to smoke, but has not smoked since she was diagnosed with lung cancer and had previous lobectomy back in 2011 Reevaluated today on 07/24/20, patient remains on the cardiac floor, patient is doing quite well, relatively asymptomatic, chest x-ray and CT of the chest was reviewed, patient did have minimal fibrotic changes in the right lower lobe, overall the patient is doing great, and I have already cleared the patient for surgery. My understanding from the patient that she is scheduled to have surgery early next week. May or may not be discharged home, and that is to be decided upon by cardiology and cardiothoracic surgery on the case. Pulmonary- [place], patient is cleared for surgery and she is also cleared to go home if felt appropriate by other consultants. Patient was reevaluated today on 07/27/2020, patient underwent myocardial revascularization today, postoperatively she was brought up to the ICU on mechanical ventilation. Patient is now on FiO2 of 60%, tidal volume is 450, assist control rate of 12, and PEEP of 5. ABG showed a pO2 of 136 pCO2 of 45, pH of 7.30, hence I have increased the rate to 16, cut down the FiO2 to 50%, and I increased the flow rates from 60-70 L/m. Patient is on pressors in the form of norepinephrine at 0.07 mcg/kg/m. Chest x-ray showed mostly postoperative changes, changes of CABG, endotracheal tube, nasogastric tube, PA catheter, mediastinal drains and chest tubes are in appropriate position. Patient is doing fairly well, sedated, in no distress Objective - Vital Signs Vital signs: Vital Signs Temp 97.8 F 07/27/20 05:45 Pulse 88 07/27/20 15:47 Resp 16 07/27/20 05:45 BP 133/88 07/27/20 05:45 Pulse Ox 95 07/27/20 05:45 Intake & Output 07/26/20 07/27/20 07/27/20 18:59 06:59 18:59 Intake Total 420 200 153 Output Total 400 2100 Balance 20 200 -1947 Weight 82.7 kg Intake: IV 200 153 Oral 420 Output: Urine 400 600 Estimated Blood Loss 1500 Other: Voiding Method Toilet Toilet # Voids 1 1 - Exam GENERAL: Revealed a 75-year-old female sedated, on mechanical ventilation. Head: atraumatic normocephalic... HEENT: PERRLA, EOMI, anicteric, moist mucous membranes, endotracheal tube and orogastric tube are intact NECK: Supple no neck masses no thyromegaly. HEART: Normal S1 and S2, no S3 gallop. LUNGS: Symmetrical chest expansion, clear breath sound bilaterally. Mediastinal tube and pleural chest tubes are noted. ABDOMEN: Soft nontender no megaly no rebound no guarding PSYCH: Normal mood affect and normal mental status examination. MUSCULOSKELETAL: No deformities NEUROLOGICAL: Cannot assess, patient just came back from the OR, sedated. Skin: No rashes Extremities: No clubbing edema or cyanosis - Labs CBC & Chem 7: 07/26/20 07:12 07/26/20 07:12 Labs: Abnormal Lab Results - Last 24 Hours (Table) 07/26/20 07/27/20 07/27/20 Range/Units 07:12 05:17 08:45 ABG pH (7.35-7.45) ABG pO2 425 H (83-108) mmHg ABG HCO3 (21-25) mmol/L ABG Total CO2 27 H (19-24) mmol/L ABG O2 Saturation 100.0 H (94-97) % ABG Hematocrit 30 L (34.0-46.0) % ABG Sodium (135-146) mmol/L ABG Potassium (3.4-4.5) mmol/L ABG Ionized Calcium (4.5-5.3) mg/dL ABG Glucose (75-99) mg/dL Hemoglobin 9.9 L (11.4-16.0) gm/dL POC Glucose (mg/dL) 103 H (75-99) mg/dL Arterial Blood Potassium (3.4-4.5) mmol/L Arterial Blood Glucose (75-99) mg/dL Crossmatch See Detail 07/27/20 07/27/20 07/27/20 Range/Units 10:09 11:03 11:31 ABG pH (7.35-7.45) ABG pO2 127 H >420 H 367 H (83-108) mmHg ABG HCO3 26 H (21-25) mmol/L ABG Total CO2 27 H 26 H 26 H (19-24) mmol/L ABG O2 Saturation 99.1 H 100.0 H 100.0 H (94-97) % ABG Hematocrit 29 L 19 L* 21 L (34.0-46.0) % ABG Sodium 134 L (135-146) mmol/L ABG Potassium 5.3 H 5.2 H (3.4-4.5) mmol/L ABG Ionized Calcium 4.1 L 4.3 L (4.5-5.3) mg/dL ABG Glucose 112 H 190 H 164 H (75-99) mg/dL Hemoglobin 9.4 L 6.3 L* 6.7 L* (11.4-16.0) gm/dL POC Glucose (mg/dL) (75-99) mg/dL Arterial Blood Potassium 5.3 H 5.2 H (3.4-4.5) mmol/L Arterial Blood Glucose 112 H 190 H 164 H (75-99) mg/dL Crossmatch 07/27/20 07/27/20 07/27/20 Range/Units 12:13 12:35 13:53 ABG pH (7.35-7.45) ABG pO2 374 H >420 H 337 H (83-108) mmHg ABG HCO3 (21-25) mmol/L ABG Total CO2 26 H 26 H 26 H (19-24) mmol/L ABG O2 Saturation 100.0 H 100.0 H 100.0 H (94-97) % ABG Hematocrit 21 L 21 L 25 L (34.0-46.0) % ABG Sodium (135-146) mmol/L ABG Potassium 5.3 H 5.0 H (3.4-4.5) mmol/L ABG Ionized Calcium 4.4 L 4.3 L (4.5-5.3) mg/dL ABG Glucose 193 H 170 H 117 H (75-99) mg/dL Hemoglobin 6.8 L* 6.7 L* 8.1 L (11.4-16.0) gm/dL POC Glucose (mg/dL) (75-99) mg/dL Arterial Blood Potassium 5.3 H 5.0 H (3.4-4.5) mmol/L Arterial Blood Glucose 193 H 170 H 117 H (75-99) mg/dL Crossmatch 07/27/20 07/27/20 Range/Units 14:51 15:18 ABG pH 7.30 L (7.35-7.45) ABG pO2 136 H (83-108) mmHg ABG HCO3 (21-25) mmol/L ABG Total CO2 (19-24) mmol/L ABG O2 Saturation 99.2 H (94-97) % ABG Hematocrit (34.0-46.0) % ABG Sodium (135-146) mmol/L ABG Potassium (3.4-4.5) mmol/L ABG Ionized Calcium (4.5-5.3) mg/dL ABG Glucose (75-99) mg/dL Hemoglobin (11.4-16.0) gm/dL POC Glucose (mg/dL) 130 H (75-99) mg/dL Arterial Blood Potassium (3.4-4.5) mmol/L Arterial Blood Glucose (75-99) mg/dL Crossmatch Assessment and Plan Assessment: Impression:Triple-vessel coronary artery disease , status post CABG postoperative day #0 Remote History of non-small cell lung cancer and previous lobectomy. History of smoking/ex-smoker. Minimal COPD based on her PFT. Family history of premature coronary artery disease. Hypertension. Peripheral vessel occlusive disease Degenerative joint disease Dyslipidemia. Chronic insomnia. Recommendation: Reviewed patient's ventilator settings and adjusted the settings. Reviewed the patient's chest x-ray, mostly showing postoperative changes. Reviewed the patient's ABG and labs done today. Reviewed the medications that the patient is on today. Commended some changes in the ventilator settings, as noted above and I'm recommending fast track route for possible extubation in the next few hours, patient had a relatively good PFT prior to surgery. We'll continue to follow. Critical care time is over 30 minutes Time with Patient: Greater than 30
[2020-07-27] MEDS ORDERED: IPRATROPIUM-ALBUTEROL 3 ML NEB INHALATION SCH (16:00)
[2020-07-27 16:09] LABS: INR 1.1 (<1.2); Prothrombin Time 11.9 sec (9.0-12.0)
[2020-07-27 16:11] LABS: Basophils % (A) 0 %; Eosinophils # (A) 0.2 k/uL (0-0.7); Eosinophils % (A) 2 %; HCT 23.7 % (34.0-46.0); Lymphocytes # (A) 1.8 k/uL (1.0-4.8); Lymphocytes % (A) 15 %; MCH 29.8 pg (25.0-35.0); MCHC 32.4 g/dL (31.0-37.0); MCV 91.8 fL (80.0-100.0); Mean Platelet Volume 7.8; Monocytes # (A) 0.6 k/uL (0-1.0); Monocytes % (A) 5 %; Neutrophils # (A) 9.8 k/uL (1.3-7.7); Neutrophils % (A) 78 %; Platelet Count 199 k/uL (150-450); RBC 2.58 m/uL (3.80-5.40); RDW 12.9 % (11.5-15.5); WBC 12.6 k/uL (3.8-10.6)
[2020-07-27 16:12] LABS: ALT 9 U/L (4-34); AST 29 U/L (14-36); African American GFR (CKD) >90 (>60 ml/min/1.73 sqM); Albumin 3.3 g/dL (3.5-5.0); Alkaline Phosphatase 36 U/L (38-126); Anion Gap 7 mmol/L; Blood Urea Nitrogen 15 mg/dL (7-17); Calcium 8.1 mg/dL (8.4-10.2); Carbon Dioxide 22 mmol/L (22-30); Chloride 108 mmol/L (98-107); Glucose 119 mg/dL (74-99); Magnesium 2.7 mg/dL (1.6-2.3); Non-African American GFR(CKD) >90 (>60 ml/min/1.73 sqM); Potassium 4.5 mmol/L (3.5-5.1); Sodium 137 mmol/L (137-145); Total Bilirubin 0.4 mg/dL (0.2-1.3)
[2020-07-27 16:14] LABS: HGB 7.7 gm/dL (11.4-16.0)
[2020-07-27] MEDS ORDERED: SODIUM BICARB 8.4% 50 ML SYR (1 MEQ/ML) IV STA (16:26)
[2020-07-27] MEDS: CLEVIDIPINE BUTYRATE 25 MG in EMPTY BAG 1 BAG IV SCH (16:36)
[2020-07-27] MEDS: MILRINONE-D5W PMX 20 MG in DEXTROSE/WATER 1 100ML.BAG IV SCH (16:37)
[2020-07-27] MEDS: LACTATED RINGERS 1,000 ML IV SCH (16:37)
[2020-07-27] MEDS: NOREPINEPHRINE 4 MG in SODIUM CHLORIDE 0.9% 250 ML IV SCH (16:38)
[2020-07-27 17:21] LABS: Glucose,Whole Blood 134 mg/dL (75-99)
[2020-07-27] MEDS: ACETAMINOPHEN IV (For NPO) 1,000 MG in EMPTY BAG 1 BAG IVPB SCH (18:00)
[2020-07-27 18:24] LABS: Glucose,Whole Blood 141 mg/dL (75-99)
--- NOTE | 2020-07-27 18:24 | OP ---
OPERATIVE REPORT DATE OF SURGERY: 07/27/2020 PREOPERATIVE DIAGNOSIS: Coronary artery disease. POSTOPERATIVE DIAGNOSE: Coronary artery disease. PROCEDURE: 1. Coronary artery bypass grafting x3 vessels (left internal mammary artery to left anterior descending artery, saphenous vein graft to obtuse marginal artery, saphenous vein graft to posterior descending artery). 2. Endoscopic harvest of right greater saphenous vein. 3. Ligation of left atrial appendage using a 35 mm AtriClip. 4. Epiaortic ultrasound. 5. Transesophageal echocardiogram. SURGEON: Yamil Alan MD ASSISTANTS: 1. LATIA Blankenship. 2. LATIA Crowley. ANESTHESIA: General. SPECIMENS: None. COMPLICATIONS: None. INDICATION: The patient is a 75-year-old female with a history of multiple medical problems, including coronary artery disease, status post right coronary stents, COPD, CVA, hyperlipidemia, hypertension, lung cancer, status post right lower lobectomy, and peripheral arterial disease. She presented to an outside hospital with chest pain and shortness of breath. Workup revealed multivessel coronary artery disease, including near-occlusion of her previous right coronary artery stents. Coronary artery bypass was recommended. The risks, benefits and alternatives of this procedure were discussed with the patient. All of her questions were answered. Consent was obtained. Of note, the patient had been on Plavix, which was held 4 days prior to her surgical intervention. FINDINGS: The left internal mammary artery was a good conduit with brisk flow. The saphenous vein was a good conduit. There was scattered calcium noted within the ascending aorta. The LAD was small in diameter and measured 1.3 mm. The obtuse marginal artery measured 1.5 mm. The majority of the proximal right coronary artery had previously placed stents. The rest of the artery was heavily calcified. A soft spot was noted distally near the takeoff of a small PDA. PROCEDURE IN DETAIL: The patient was taken to the operating room and placed supine on the operating table. After the induction of general anesthesia, she was prepped and draped in the usual sterile fashion. Preoperative transesophageal cardiogram revealed an ejection fraction of approximately 40% with no significant valvular pathology. A median sternotomy was performed. The left internal mammary artery was harvested in the standard fashion, taking care to clip all branches. Intravenous heparin was administered and the vessel was transected distally, revealing brisk flow. Simultaneously, greater saphenous vein was harvested from the right lower extremity using endoscopic technique. A pericardial cradle was created. Upon palpation, there were multiple scattered areas of calcific plaque noted in the aortic arch as well as in the ascending aorta. Epiaortic ultrasound confirmed location of these areas of plaque. Using ultrasound and palpation as a guide, an arterial cannula was placed in the distal ascending aorta. A venous cannula was placed through the right atrial appendage and directed into the IVC. Both antegrade and retrograde catheters were placed as well. The patient was then placed on cardiopulmonary bypass with good decompression of the heart. The aortic cross- clamp was applied in an area free of calcific disease. Cold blood potassium cardioplegia was delivered in both antegrade and retrograde fashion to achieve arrest of the heart. Of note, cardioplegia was delivered every 15 to 20 minutes while the patient remained under cross-clamp. I began by identifying the left atrial appendage. A 35 mm AtriClip was placed across its base to ensure ligation. Next, attention was turned to the inferior wall. The distal right coronary artery was palpated. There were areas of previously placed stents as well as heavy calcific disease. I traced the artery out distally until a relative soft spot was identified near the takeoff of the PDA. A small arteriotomy was created. This vessel accepted a 1 mm probe. Using saphenous vein in a reverse fashion, an end-to-side anastomosis was created. This was performed using running 7-0 Prolene suture. The graft was hemostatic and had good flow. Next attention was turned to the lateral wall. The obtuse marginal artery was identified. It was dissected free. A small arteriotomy was created. Using saphenous vein in reverse fashion, an end-to-side anastomosis was created using running 7-0 Prolene suture. The graft was hemostatic and had good flow. Finally, attention were turned to the anterior wall. The diagonal artery was palpated and had a heavy calcific burden and not amenable to bypass. The left anterior descending artery was very deep within the fat. I found this vessel after dissecting through a fold in the fat. It did contain diffuse disease. A soft spot just beyond an area with calcific disease was identified. A small arteriotomy was created in the LAD. This vessel accepted a 1.0 mm probe distally. Using the left internal mammary artery, an end-to-side anastomosis was created. This was performed using running 8-0 Prolene suture. The graft was hemostatic. The mammary pedicle was then tacked down to the anterior surface of the heart. Attention was then turned to the proximal anastomoses. These were both performed in an end-to-side fashion using running 6-0 Prolene sutures. One liter of warm blood was delivered in retrograde fashion. Lidocaine and magnesium were administered as well. The aortic cross-clamp was removed. The vein grafts were de-aired in the standard fashion. Distal anastomoses were inspected and appeared to be hemostatic. Temporary atrial and ventricular pacing wires were placed and brought through the skin. The patient was then weaned off cardiopulmonary bypass. She did require low-dose Levophed and low-dose milrinone to separate from bypass. Follow-up transesophageal cardiogram confirmed no change in ejection fraction or valvular pathology. Protamine was administered. There were no adverse reactions. The remaining cannulas were removed. The mediastinum was copiously irrigated with warm saline solution. Again all surgical sites were inspected and appeared to be hemostatic. Soft tissues were reapproximated over the ascending aorta as well as over the apex of the heart. Straight 32- [place] chest tubes were placed and directed into both the left pleural space and the mediastinum. These were all secured to the skin using sutures. The sternum was then reapproximated using the [place] cable system. At the completion of the closure, the sternum was well aligned. The remainder of the wound was closed in layers. Sterile dressing was applied. The patient appeared to tolerate the procedure well. There were no immediate complications. She returned to the ICU in critical but stable condition. MMODL / IJN: [id number] / BELINDA
[2020-07-27] MEDS: IPRATROPIUM-ALBUTEROL 3 ML NEB INHALATION SCH ×2 (19:02)
--- NOTE | 2020-07-27 19:42 | P.PN ---
Progress Note - Text Progress Note Date: 07/27/20 Chief Complaint: Chest pain History of presenting complaint: This is a pleasant 75-year-old patient of Dr. Derrick Neal. Chronic stable medical conditions include COPD, hyperlipidemia, hypertension, ostial arthritis, lung cancer 6 years ago, peripheral artery disease, coronary artery stent, peripheral stents, anxiety depression. Patient presented after she was having central chest pressure at home then went to both the shoulder blades for the arms. Patient became nauseated. No dizziness or lightheadedness. She shortness of breath. No perspiration. Symptoms most lost about 40 minutes she was taken to [facility]. She was similar episode about 2 weeks ago. Transferred down here. Has some lower extremity edema Admitted with unstable angina. underwent cardiac catheterization. Found to have severe triple-vessel coronary artery disease. Today-ICU- underwent coronary bypass 3, ligation of left atrial appendage. Has 2 mediastinal and 1 left pleural chest tube. FiO2 16 a PEEP of 5. Intubated. Patient also received IVmilrinone,iv dexmedetomidine, iv clevidipine, IV Ancef. Also received IV amiodarone. Review of systems: Patient intubated Active Medications Hydrocodone Bitart/Acetaminophen (Hydrocodone/Apap 5-325mg 1 Each Tab) 2 each PO Q4HR PRN PRN Reason: Severe Pain Hydrocodone Bitart/Acetaminophen (Hydrocodone/Apap 5-325mg 1 Each Tab) 1 each PO Q4HR PRN PRN Reason: Moderate Pain Albuterol/Ipratropium (Ipratropium-Albuterol 3 Ml Neb) 3 ml INHALATION RT-Q2H PRN PRN Reason: Shortness Of Breath Or Wheezing Albuterol/Ipratropium (Ipratropium-Albuterol 3 Ml Neb) 3 ml INHALATION RT-Q4H [facility] Stop: 07/27/20 19:55 Last Admin: 07/27/20 15:40 Dose: 3 ml Documented by: Albuterol/Ipratropium (Ipratropium-Albuterol 3 Ml Neb) 3 ml INHALATION RT-QID [facility] Last Admin: 07/27/20 19:02 Dose: 3 ml Documented by: Aspirin (Aspirin 325 Mg Tab) 325 mg PO DAILY [facility] Atorvastatin Calcium (Atorvastatin 80 Mg Tab) 80 mg PO HS [facility] Last Admin: 07/26/20 20:38 Dose: 80 mg Documented by: Benzocaine/Menthol (Benzocaine/Menthol Lozeng 1 Each Lozenge) 1 each MUCOUS MEM Q2H PRN PRN Reason: Sore Throat Bisacodyl (Bisacodyl 10 Mg Supp) 10 mg RECTAL DAILY PRN PRN Reason: Constipation Clopidogrel Bisulfate (Clopidogrel 75 Mg Tab) 75 mg PO DAILY [facility] Ezetimibe (Ezetimibe 10 Mg Tab) 10 mg PO HS [facility] Last Admin: 07/26/20 20:38 Dose: 10 mg Documented by: Heparin Sodium (Porcine) (Heparin Sodium,Porcine 5,000 Unit/Ml 1 Ml Vial) 5,000 unit SQ Q8HR INÉS Hydralazine HCl (Hydralazine Hcl 20 Mg/Ml 1 Ml Vial) 10 mg IVP Q1H PRN PRN Reason: Blood Pressure - High Milrinone Lactate/Dextrose 20 (mg/ IV Solution) 100 mls @ 4.962 mls/hr IV .T65P28M [facility] Last Admin: 07/27/20 16:37 Dose: 0.2 mcg/kg/min, 4.962 mls/hr Documented by: Norepinephrine Bitartrate 4 mg (/ Sodium Chloride) 254 mls @ 15.754 mls/hr IV .Q16H8M [facility]; Protocol Last Admin: 07/27/20 16:38 Dose: 0.05 mcg/kg/min, 15.754 mls/hr Documented by: Amiodarone HCl 150 mg/ (Dextrose/Water) 103 mls @ 618 mls/hr IV .Q10M PRN; Protocol PRN Reason: A.FIB/FLUTTER Amiodarone HCl 360 mg/ (Dextrose/Water) 207.2 mls @ 34.533 mls/hr IV .Q6H PRN; Protocol PRN Reason: A.FIB/FLUTTER Amiodarone HCl 450 mg/ (Dextrose/Water) 250 mls @ 16.667 mls/hr IV .Q15H PRN; Protocol PRN Reason: A.FIB/FLUTTER Albumin Human 250 ml/ IV (Solution) 250 mls @ 250 mls/hr IVPB Q1HR PRN PRN Reason: For Volume Stop: 07/29/20 14:16 Acetaminophen 1,000 mg/ IV (Solution) 100 mls @ 400 mls/hr IVPB Q6HR [facility] Stop: 07/28/20 00:14 Last Admin: 07/27/20 18:00 Dose: 400 mls/hr Documented by: Clevidipine 25 mg/ IV Solution 50 mls @ 2 mls/hr IV .Q24H [facility]; Protocol Last Admin: 07/27/20 16:36 Dose: Not Given Documented by: Nitroglycerin/Dextrose 50 mg/ (IV Solution) 250 mls @ 1.5 mls/hr IV .Q24H [facility] Last Admin: 07/27/20 16:37 Dose: 5 mcg/min, 1.5 mls/hr Documented by: Lactated Ringer's (Lactated Ringers) 1,000 mls @ 50 mls/hr IV .Q20H [facility] Last Admin: 07/27/20 16:37 Dose: 50 mls/hr Documented by: Propofol 500 mg/ IV Solution 50 mls @ 0 mls/hr IV .Q0M [facility]; Protocol Dexmedetomidine HCl 400 mcg/ (IV Solution) 100 mls @ 0 mls/hr IV .Q0M [facility]; Protocol Stop: 07/28/20 14:17 Cefazolin Sodium 2 gm/ Sodium (Chloride) 50 mls @ 100 mls/hr IVPB Q8H [facility] Stop: 07/28/20 09:29 Last Admin: 07/27/20 16:38 Dose: 100 mls/hr Documented by: Calcium Gluconate 2 gm/ Sodium (Chloride) 120 mls @ 100 mls/hr IVPB ONCE PRN PRN Reason: Ionized Calcium less than 4.4 Stop: 08/06/20 14:16 Insulin Human Regular 100 unit (/ Sodium Chloride) 101 mls @ 0 mls/hr IV .Q0M [facility]; Protocol Ketorolac Tromethamine (Ketorolac 15 Mg/Ml 1 Ml Vial) 15 mg IVP Q6HR [facility] Stop: 07/30/20 16:21 Magnesium Hydroxide (Magnesium Hydroxide 2,400 Mg/10 Ml Cup) 2,400 mg PO BID PRN PRN Reason: Constipation Metoclopramide HCl (Metoclopramide 5 Mg/Ml 2 Ml Vial) 10 mg IVP Q4H PRN PRN Reason: Nausea And Vomiting Metoprolol Tartrate (Metoprolol Tartrate 12.5 Mg Tab) 12.5 mg PO BID [facility] Miscellaneous Information (Potassium Replacement Protocol 1 Each Mis) 1 each MISCELLANE DAILY PRN; Protocol PRN Reason: Per Protocol Miscellaneous Information (Magnesium Replacement Protocol 1 Each Misc) 1 each MISCELLANE DAILY PRN; Protocol PRN Reason: Per Protocol Miscellaneous Information (Phosphorus Replacement Protoco 1 Each Mis) 1 each MISCELLANE DAILY PRN; Protocol PRN Reason: Per Protocol Ondansetron HCl (Ondansetron 4 Mg/2 Ml Vial) 4 mg IVP Q6HR PRN PRN Reason: Nausea And Vomiting Oxycodone HCl (Oxycodone Hcl 5 Mg Tab) 10 mg PO Q4H PRN PRN Reason: Severe Pain Stop: 07/28/20 01:54 Oxycodone HCl (Oxycodone Hcl 5 Mg Tab) 5 mg PO Q4H PRN PRN Reason: Moderate Pain Stop: 07/28/20 01:54 Pantoprazole Sodium (Pantoprazole 40 Mg/10 Ml Vial) 40 mg IVP DAILY [facility] Senna/Docusate Sodium (Sennosides-Docusate Sodium 1 Each Tab) 2 each PO HS [facility] Sertraline HCl (Sertraline 100 Mg Tab) 100 mg PO DAILY [facility] Last Admin: 07/27/20 14:31 Dose: Not Given Documented by: Sodium Chloride (Sodium Chloride 0.9% Flush 10 Ml Syringe) 10 ml IV BID [facility] Past medical history to include: CHF, COPD, hyperlipidemia, hypertension, coronary artery disease with stent, osteoporosis, lung cancer 6 years ago, peripheral arterial disease, anxiety depression Social history: Lives with her son. Smoked a pack a day since the teenage years. Stop in 2011. Some alcohol in the past Physical examination: VITAL SIGNS: Noted in electronic records GENERAL: Laying in bed, intubated EYES: Pupils equal. Conjunctiva normal. HEENT: External appearance of nose and ears normal, oral cavity endotracheal tube. NECK: JVD unable to assess; masses not palpable. HEART: First and second heart sounds are normal; no edema. LUNGS: Respiratory rate increased; decreased breath sounds. Chest: 2 mediastinal and one left pleural chest tube ABDOMEN: Soft, nontender, liver spleen not palpable, no masses palpable. Da Silva catheter PSYCH: Patient sedated MUSCULOSKELETAL: Evidence of OA Investigations: July 27: Incontinent 12.6 hemoglobin 7.7 platelets 199 potassium 4.5 creatinine 0.56 albumin 3.3 July 22: Potassium 4.1 creatinine 0.97 proBNP 1270 Cardiac [id number] disease 2-D echocardiogram-moderate concentric LVH, EF 50-55% hypokinetic galicia Troponin I 0.018, 0.012 Coronavirus [PCR]-not detected EKG tracing personally reviewed by me-normal sinus rhythm, PVC Assessment and plan: -Coronary artery bypass [id number] on July 27 -Unstable angina, -Triple-vessel coronary artery disease on cardiac catheterization. Continue current medications -Acute on chronic congestive heart diastolic dysfunction EF 50-55% received IV Lasix. Stabilized -COPD in a previous smoker, on DuoNeb -Hyperlipidemia, continue Lipitor -Essential hypertension, follow closely -Primary osteoarthritis, take Tylenol when necessary -History of lung cancer 6 years ago -Peripheral arterial disease with stenting, on aspirin and Plavix -Anxiety depression otherwise specified-on Zoloft -Chronic insomnia continue with melatonin Patient is in the ICU. Follow with cardiothoracic surgery, pulmonary, and cardiology
[2020-07-27 20:40] LABS: Basophils % (A) 0 %; Eosinophils # (A) 0.1 k/uL (0-0.7); Eosinophils % (A) 1 %; HCT 22.8 % (34.0-46.0); HGB 7.4 gm/dL (11.4-16.0); Lymphocytes % (A) 9 %; MCH 29.5 pg (25.0-35.0); MCHC 32.6 g/dL (31.0-37.0); MCV 90.5 fL (80.0-100.0); Mean Platelet Volume 8.5; Monocytes # (A) 0.5 k/uL (0-1.0); Monocytes % (A) 5 %; Neutrophils # (A) 9.5 k/uL (1.3-7.7); Neutrophils % (A) 85 %; Platelet Count 219 k/uL (150-450); RBC 2.52 m/uL (3.80-5.40); RDW 13.1 % (11.5-15.5); WBC 11.2 k/uL (3.8-10.6)
[2020-07-27 20:57] LABS: Glucose,Whole Blood 138 mg/dL (75-99)
[2020-07-27 22:09] LABS: Glucose,Whole Blood 129 mg/dL (75-99)
[2020-07-27] MEDS: HEPARIN SODIUM,PORCINE 5,000 UNIT/ML 1 ML VIAL SQ SCH (22:15)
[2020-07-27 22:55] LABS: Glucose,Whole Blood 112 mg/dL (75-99)
[2020-07-27] MEDS: KETOROLAC 15 MG/ML 1 ML VIAL IVP SCH (23:45)
[2020-07-27] MEDS: EZETIMIBE 10 MG TAB PO SCH (23:49)
[2020-07-27] MEDS: ATORVASTATIN 80 MG TAB PO SCH (23:49)
[2020-07-27 23:58] LABS: Glucose,Whole Blood 139 mg/dL (75-99)
--- NOTE | 2020-07-28 01:16 | CT ---
EXAM: CT Head Without Intravenous Contrast CLINICAL HISTORY: Left-sided weakness. TECHNIQUE: Axial computed tomography images of the head/brain without intravenous contrast. CTDI is 49.27 mGy and DLP is 1084.4 mGy-cm. This CT exam was performed using one or more of the following dose reduction techniques: automated exposure control, adjustment of the mA and/or kV according to patient size, and/or use of iterative reconstruction technique. COMPARISON: No previous study. FINDINGS: Brain: Small vessel disease of aging. A 3.2 x 1.8 cm hypodensity is noted in the right high parietal region most suggestive of a chronic infarct. Dominant finding is abnormal hypodensity within the right cerebellum best seen on axial image 19 suggestive of acute/subacute area of infarction in the right cerebellum. No hemorrhage. Ventricles: There is prominence of the ventricular system, cortical sulci, basilar cisterns, compatible with age with atrophy. Bones/joints: Calvarium is within normal limits. No acute fracture. Soft tissues: Unremarkable. Vasculature: Atherosclerotic disease. Sinuses: Mild chronic ethmoid sinusitis. Mastoid air cells: Mastoid air cells are well pneumatized to IMPRESSION: 1. Findings suggestive of an acute/subacute area of infarction right cerebellum. 2. Magnetic resonance imaging of the brain with diffusion-weighted sequences highly advised to follow. 3. Probable area of chronic infarction high right parietal region. 4. Age-related atrophy and small vessel disease of aging. <MYCVCSECTION> Communications: 07/28/20 01:26 Call Doctor Regarding Stroke, called Dr. Alan on 07/28 01: 26 (-05:00)
[2020-07-28 01:42] LABS: Glucose,Whole Blood 150 mg/dL (75-99)
[2020-07-28] MEDS: KETOROLAC 15 MG/ML 1 ML VIAL IVP SCH ×5 (01:42→23:44)
[2020-07-28] MEDS: ACETAMINOPHEN IV (For NPO) 1,000 MG in EMPTY BAG 1 BAG IVPB SCH (01:45)
[2020-07-28] MEDS: MILRINONE-D5W PMX 20 MG in DEXTROSE/WATER 1 100ML.BAG IV SCH ×3 (01:46→23:44)
[2020-07-28 03:47] LABS: Glucose,Whole Blood 123 mg/dL (75-99)
[2020-07-28] MEDS: CLEVIDIPINE BUTYRATE 25 MG in EMPTY BAG 1 BAG IV SCH (04:42)
[2020-07-28 04:52] LABS: ABG Base Excess 2.2 mmol/L; ABG HCO3 26 mmol/L (21-25); ABG Oxygen Saturation 98.3 % (94-97); ABG PCO2 38 mmHg (35-45); ABG PH 7.45 (7.35-7.45); ABG PO2 92 mmHg (83-108); ABG TCO2 27 mmol/L (19-24); Allen Test Performed? Yes
[2020-07-28 04:53] LABS: Glucose,Whole Blood 125 mg/dL (75-99)
[2020-07-28 05:03] LABS: Basophils % (A) 0 %; Eosinophils % (A) 0 %; HCT 21.6 % (34.0-46.0); HGB 7.4 gm/dL (11.4-16.0); Lymphocytes # (A) 0.9 k/uL (1.0-4.8); Lymphocytes % (A) 9 %; MCH 31.1 pg (25.0-35.0); MCHC 34.2 g/dL (31.0-37.0); MCV 91.1 fL (80.0-100.0); Mean Platelet Volume 9.4; Monocytes # (A) 0.8 k/uL (0-1.0); Monocytes % (A) 7 %; Neutrophils # (A) 8.9 k/uL (1.3-7.7); Neutrophils % (A) 84 %; Platelet Count 195 k/uL (150-450); RBC 2.37 m/uL (3.80-5.40); RDW 12.9 % (11.5-15.5); WBC 10.7 k/uL (3.8-10.6)
[2020-07-28 05:09] LABS: Ionized Calcium 4.8 mg/dL (4.5-5.3)
[2020-07-28 05:21] LABS: ALT 19 U/L (4-34); AST 105 U/L (14-36); African American GFR (CKD) >90 (>60 ml/min/1.73 sqM); Albumin 3.1 g/dL (3.5-5.0); Alkaline Phosphatase 36 U/L (38-126); Anion Gap 4 mmol/L; Blood Urea Nitrogen 17 mg/dL (7-17); Calcium 8.2 mg/dL (8.4-10.2); Carbon Dioxide 27 mmol/L (22-30); Chloride 108 mmol/L (98-107); Glucose 118 mg/dL (74-99); Magnesium 2.3 mg/dL (1.6-2.3); Non-African American GFR(CKD) >90 (>60 ml/min/1.73 sqM); Potassium 3.9 mmol/L (3.5-5.1); Sodium 139 mmol/L (137-145); Total Bilirubin 0.5 mg/dL (0.2-1.3)
[2020-07-28] MEDS ORDERED: POTASSIUM BICARBONATE/CIT AC 20 MEQ TABLET.EFF NG-TUBE SCH (06:00)
[2020-07-28] MEDS: HYDROcodone/APAP 5-325MG 1 EACH TAB PO PRN ×2 (06:11→17:11)
[2020-07-28 06:41] LABS: Glucose,Whole Blood 128 mg/dL (75-99)
--- NOTE | 2020-07-28 06:41 | P.PN ---
Subjective Progress Note Date: 07/28/20 Principal diagnosis: Severe triple-vessel coronary artery disease This is a 75-year-old female patient was admitted to the hospital with angina and underwent a heart catheterization which revealed severe triple-vessel coronary artery disease. The patient was seen by surgeon yesterday and the plan to pursue coronary artery that was grafting this coming Thursday. The echo reveal ed normal left ventricular systolic function was mild aortic stenosis. Subsequently the patient underwent coronary artery bypass grafting 3 yesterday with LINDER to LAD and SVG to OM and SVG to PDA. She was seen this morning 07/28/2020. Unfortunately she is not doing well. She does have left sided weakness and she does have deviation of the head to the right side. She is not following commands. Computed tomography scan was performed and revealed cerebellar infarction seems to be acute/subacute. Otherwise she is hemodynamically stable. The hemoglobin is a stable. The kidney function is stable as well. Objective - Vital Signs Vital signs: Vital Signs Temp 100.2 F H 07/28/20 04:00 Pulse 90 07/28/20 06:15 Resp 16 07/28/20 06:15 BP 117/53 07/28/20 06:15 Pulse Ox 98 07/28/20 06:00 Intake & Output 07/27/20 07/27/20 07/28/20 06:59 18:59 06:59 Intake Total 200 153 457.850 Output Total 2100 785 Balance 200 -1947 -327.150 Weight 82.7 kg Intake: IV 200 153 250 Lactated Ringers 1,000 ml 250 @ 50 mls/hr IV .Q20H INÉS Rx#:[id number] Intake, IV Titration 207.850 Amount Milrinone-D5w Pmx 20 mg 45.402 In Dextrose/Water 1 100ml .bag @ 0.2 MCG/KG/MIN 4. 962 mls/hr IV .[id number] INÉS Rx#:[id number] Norepinephrine 4 mg In 147.562 Sodium Chloride 0.9% 250 ml @ 0.05 MCG/KG/MIN 15. 754 mls/hr IV .Q16H8M INÉS Rx#:[id number] propofoL 1,000 mg In 14.886 Empty Bag 1 bag @ Titrate IV .Q0M PRN Rx#: [id number] Output: Chest Tube Drainage 100 Chest Tube Bilateral 60 Mediastinal Left Lateral Chest 40 Drainage 520 Left Pleural Chest Tube 260 Mediastinal chest tubes 260 Urine 600 165 Estimated Blood Loss 1500 Other: Voiding Method Toilet Indwelling Catheter # Voids 1 ABP, PAP, CO, CI - Last Documented Arterial Blood Pressure 152/59 Pulmonary Artery Pressure 43/17 Cardiac Output 4.4 Cardiac Index 2.3 - Constitutional General appearance: Present: no acute distress - Respiratory Respiratory: bilateral: diminished - Cardiovascular Rhythm: regular - Labs CBC & Chem 7: 07/28/20 04:50 07/28/20 04:50 Labs: Abnormal Lab Results - Last 24 Hours (Table) 07/26/20 07/27/20 07/27/20 Range/Units 07:12 08:45 10:09 WBC (3.8-10.6) k/uL RBC (3.80-5.40) m/uL Hgb (11.4-16.0) gm/dL Hct (34.0-46.0) % Neutrophils # (1.3-7.7) k/uL Lymphocytes # (1.0-4.8) k/uL ABG pH (7.35-7.45) ABG pO2 425 H 127 H (83-108) mmHg ABG HCO3 26 H (21-25) mmol/L ABG Total CO2 27 H 27 H (19-24) mmol/L ABG O2 Saturation 100.0 H 99.1 H (94-97) % ABG Hematocrit 30 L 29 L (34.0-46.0) % ABG Sodium (135-146) mmol/L ABG Potassium (3.4-4.5) mmol/L ABG Ionized Calcium (4.5-5.3) mg/dL ABG Glucose 112 H (75-99) mg/dL Hemoglobin 9.9 L 9.4 L (11.4-16.0) gm/dL Chloride (98-107) mmol/L Glucose (74-99) mg/dL POC Glucose (mg/dL) (75-99) mg/dL Calcium (8.4-10.2) mg/dL Magnesium (1.6-2.3) mg/dL AST (14-36) U/L Alkaline Phosphatase (38-126) U/L Total Protein (6.3-8.2) g/dL Albumin (3.5-5.0) g/dL Arterial Blood Potassium (3.4-4.5) mmol/L Arterial Blood Glucose 112 H (75-99) mg/dL Crossmatch See Detail 07/27/20 07/27/20 07/27/20 Range/Units 11:03 11:31 12:13 WBC (3.8-10.6) k/uL RBC (3.80-5.40) m/uL Hgb (11.4-16.0) gm/dL Hct (34.0-46.0) % Neutrophils # (1.3-7.7) k/uL Lymphocytes # (1.0-4.8) k/uL ABG pH (7.35-7.45) ABG pO2 >420 H 367 H 374 H (83-108) mmHg ABG HCO3 (21-25) mmol/L ABG Total CO2 26 H 26 H 26 H (19-24) mmol/L ABG O2 Saturation 100.0 H 100.0 H 100.0 H (94-97) % ABG Hematocrit 19 L* 21 L 21 L (34.0-46.0) % ABG Sodium 134 L (135-146) mmol/L ABG Potassium 5.3 H 5.2 H 5.3 H (3.4-4.5) mmol/L ABG Ionized Calcium 4.1 L 4.3 L 4.4 L (4.5-5.3) mg/dL ABG Glucose 190 H 164 H 193 H (75-99) mg/dL Hemoglobin 6.3 L* 6.7 L* 6.8 L* (11.4-16.0) gm/dL Chloride (98-107) mmol/L Glucose (74-99) mg/dL POC Glucose (mg/dL) (75-99) mg/dL Calcium (8.4-10.2) mg/dL Magnesium (1.6-2.3) mg/dL AST (14-36) U/L Alkaline Phosphatase (38-126) U/L Total Protein (6.3-8.2) g/dL Albumin (3.5-5.0) g/dL Arterial Blood Potassium 5.3 H 5.2 H 5.3 H (3.4-4.5) mmol/L Arterial Blood Glucose 190 H 164 H 193 H (75-99) mg/dL Crossmatch 07/27/20 07/27/20 07/27/20 Range/Units 12:35 13:53 14:51 WBC (3.8-10.6) k/uL RBC (3.80-5.40) m/uL Hgb (11.4-16.0) gm/dL Hct (34.0-46.0) % Neutrophils # (1.3-7.7) k/uL Lymphocytes # (1.0-4.8) k/uL ABG pH (7.35-7.45) ABG pO2 >420 H 337 H (83-108) mmHg ABG HCO3 (21-25) mmol/L ABG Total CO2 26 H 26 H (19-24) mmol/L ABG O2 Saturation 100.0 H 100.0 H (94-97) % ABG Hematocrit 21 L 25 L (34.0-46.0) % ABG Sodium (135-146) mmol/L ABG Potassium 5.0 H (3.4-4.5) mmol/L ABG Ionized Calcium 4.3 L (4.5-5.3) mg/dL ABG Glucose 170 H 117 H (75-99) mg/dL Hemoglobin 6.7 L* 8.1 L (11.4-16.0) gm/dL Chloride (98-107) mmol/L Glucose (74-99) mg/dL POC Glucose (mg/dL) 130 H (75-99) mg/dL Calcium (8.4-10.2) mg/dL Magnesium (1.6-2.3) mg/dL AST (14-36) U/L Alkaline Phosphatase (38-126) U/L Total Protein (6.3-8.2) g/dL Albumin (3.5-5.0) g/dL Arterial Blood Potassium 5.0 H (3.4-4.5) mmol/L Arterial Blood Glucose 170 H 117 H (75-99) mg/dL Crossmatch 07/27/20 07/27/20 07/27/20 Range/Units 14:52 14:52 15:18 WBC 12.6 H (3.8-10.6) k/uL RBC 2.58 L (3.80-5.40) m/uL Hgb 7.7 L D (11.4-16.0) gm/dL Hct 23.7 L (34.0-46.0) % Neutrophils # 9.8 H (1.3-7.7) k/uL Lymphocytes # (1.0-4.8) k/uL ABG pH 7.30 L (7.35-7.45) ABG pO2 136 H (83-108) mmHg ABG HCO3 (21-25) mmol/L ABG Total CO2 (19-24) mmol/L ABG O2 Saturation 99.2 H (94-97) % ABG Hematocrit (34.0-46.0) % ABG Sodium (135-146) mmol/L ABG Potassium (3.4-4.5) mmol/L ABG Ionized Calcium (4.5-5.3) mg/dL ABG Glucose (75-99) mg/dL Hemoglobin (11.4-16.0) gm/dL Chloride 108 H (98-107) mmol/L Glucose 119 H (74-99) mg/dL POC Glucose (mg/dL) (75-99) mg/dL Calcium 8.1 L (8.4-10.2) mg/dL Magnesium 2.7 H (1.6-2.3) mg/dL AST (14-36) U/L Alkaline Phosphatase 36 L (38-126) U/L Total Protein 5.0 L (6.3-8.2) g/dL Albumin 3.3 L (3.5-5.0) g/dL Arterial Blood Potassium (3.4-4.5) mmol/L Arterial Blood Glucose (75-99) mg/dL Crossmatch 07/27/20 07/27/20 07/27/20 Range/Units 17:19 18:22 19:02 WBC 11.2 H (3.8-10.6) k/uL RBC 2.52 L (3.80-5.40) m/uL Hgb 7.4 L (11.4-16.0) gm/dL Hct 22.8 L (34.0-46.0) % Neutrophils # 9.5 H (1.3-7.7) k/uL Lymphocytes # (1.0-4.8) k/uL ABG pH (7.35-7.45) ABG pO2 (83-108) mmHg ABG HCO3 (21-25) mmol/L ABG Total CO2 (19-24) mmol/L ABG O2 Saturation (94-97) % ABG Hematocrit (34.0-46.0) % ABG Sodium (135-146) mmol/L ABG Potassium (3.4-4.5) mmol/L ABG Ionized Calcium (4.5-5.3) mg/dL ABG Glucose (75-99) mg/dL Hemoglobin (11.4-16.0) gm/dL Chloride (98-107) mmol/L Glucose (74-99) mg/dL POC Glucose (mg/dL) 134 H 141 H (75-99) mg/dL Calcium (8.4-10.2) mg/dL Magnesium (1.6-2.3) mg/dL AST (14-36) U/L Alkaline Phosphatase (38-126) U/L Total Protein (6.3-8.2) g/dL Albumin (3.5-5.0) g/dL Arterial Blood Potassium (3.4-4.5) mmol/L Arterial Blood Glucose (75-99) mg/dL Crossmatch 07/27/20 07/27/20 07/27/20 Range/Units 20:56 22:07 22:54 WBC (3.8-10.6) k/uL RBC (3.80-5.40) m/uL Hgb (11.4-16.0) gm/dL Hct (34.0-46.0) % Neutrophils # (1.3-7.7) k/uL Lymphocytes # (1.0-4.8) k/uL ABG pH (7.35-7.45) ABG pO2 (83-108) mmHg ABG HCO3 (21-25) mmol/L ABG Total CO2 (19-24) mmol/L ABG O2 Saturation (94-97) % ABG Hematocrit (34.0-46.0) % ABG Sodium (135-146) mmol/L ABG Potassium (3.4-4.5) mmol/L ABG Ionized Calcium (4.5-5.3) mg/dL ABG Glucose (75-99) mg/dL Hemoglobin (11.4-16.0) gm/dL Chloride (98-107) mmol/L Glucose (74-99) mg/dL POC Glucose (mg/dL) 138 H 129 H 112 H (75-99) mg/dL Calcium (8.4-10.2) mg/dL Magnesium (1.6-2.3) mg/dL AST (14-36) U/L Alkaline Phosphatase (38-126) U/L Total Protein (6.3-8.2) g/dL Albumin (3.5-5.0) g/dL Arterial Blood Potassium (3.4-4.5) mmol/L Arterial Blood Glucose (75-99) mg/dL Crossmatch 07/27/20 07/28/20 07/28/20 Range/Units 23:56 01:40 03:45 WBC (3.8-10.6) k/uL RBC (3.80-5.40) m/uL Hgb (11.4-16.0) gm/dL Hct (34.0-46.0) % Neutrophils # (1.3-7.7) k/uL Lymphocytes # (1.0-4.8) k/uL ABG pH (7.35-7.45) ABG pO2 (83-108) mmHg ABG HCO3 (21-25) mmol/L ABG Total CO2 (19-24) mmol/L ABG O2 Saturation (94-97) % ABG Hematocrit (34.0-46.0) % ABG Sodium (135-146) mmol/L ABG Potassium (3.4-4.5) mmol/L ABG Ionized Calcium (4.5-5.3) mg/dL ABG Glucose (75-99) mg/dL Hemoglobin (11.4-16.0) gm/dL Chloride (98-107) mmol/L Glucose (74-99) mg/dL POC Glucose (mg/dL) 139 H 150 H 123 H (75-99) mg/dL Calcium (8.4-10.2) mg/dL Magnesium (1.6-2.3) mg/dL AST (14-36) U/L Alkaline Phosphatase (38-126) U/L Total Protein (6.3-8.2) g/dL Albumin (3.5-5.0) g/dL Arterial Blood Potassium (3.4-4.5) mmol/L Arterial Blood Glucose (75-99) mg/dL Crossmatch 07/28/20 07/28/20 07/28/20 Range/Units 04:50 04:50 04:50 WBC 10.7 H (3.8-10.6) k/uL RBC 2.37 L (3.80-5.40) m/uL Hgb 7.4 L (11.4-16.0) gm/dL Hct 21.6 L (34.0-46.0) % Neutrophils # 8.9 H (1.3-7.7) k/uL Lymphocytes # 0.9 L (1.0-4.8) k/uL ABG pH (7.35-7.45) ABG pO2 (83-108) mmHg ABG HCO3 26 H (21-25) mmol/L ABG Total CO2 27 H (19-24) mmol/L ABG O2 Saturation 98.3 H (94-97) % ABG Hematocrit (34.0-46.0) % ABG Sodium (135-146) mmol/L ABG Potassium (3.4-4.5) mmol/L ABG Ionized Calcium (4.5-5.3) mg/dL ABG Glucose (75-99) mg/dL Hemoglobin (11.4-16.0) gm/dL Chloride 108 H (98-107) mmol/L Glucose 118 H (74-99) mg/dL POC Glucose (mg/dL) (75-99) mg/dL Calcium 8.2 L (8.4-10.2) mg/dL Magnesium (1.6-2.3) mg/dL AST 105 H (14-36) U/L Alkaline Phosphatase 36 L (38-126) U/L Total Protein 5.0 L (6.3-8.2) g/dL Albumin 3.1 L (3.5-5.0) g/dL Arterial Blood Potassium (3.4-4.5) mmol/L Arterial Blood Glucose (75-99) mg/dL Crossmatch 07/28/20 Range/Units 04:52 WBC (3.8-10.6) k/uL RBC (3.80-5.40) m/uL Hgb (11.4-16.0) gm/dL Hct (34.0-46.0) % Neutrophils # (1.3-7.7) k/uL Lymphocytes # (1.0-4.8) k/uL ABG pH (7.35-7.45) ABG pO2 (83-108) mmHg ABG HCO3 (21-25) mmol/L ABG Total CO2 (19-24) mmol/L ABG O2 Saturation (94-97) % ABG Hematocrit (34.0-46.0) % ABG Sodium (135-146) mmol/L ABG Potassium (3.4-4.5) mmol/L ABG Ionized Calcium (4.5-5.3) mg/dL ABG Glucose (75-99) mg/dL Hemoglobin (11.4-16.0) gm/dL Chloride (98-107) mmol/L Glucose (74-99) mg/dL POC Glucose (mg/dL) 125 H (75-99) mg/dL Calcium (8.4-10.2) mg/dL Magnesium (1.6-2.3) mg/dL AST (14-36) U/L Alkaline Phosphatase (38-126) U/L Total Protein (6.3-8.2) g/dL Albumin (3.5-5.0) g/dL Arterial Blood Potassium (3.4-4.5) mmol/L Arterial Blood Glucose (75-99) mg/dL Crossmatch Assessment and Plan Assessment: Assessment #1 severe triple-vessel coronary artery disease #2 preserved left ventricular systolic function #3 status post coronary artery bypass grafting as described above #4 acute/subacute cerebellar infarction Plan #1 continue dual antiplatelet therapy #2 continue statin #3 continue monitor the kidney function and electrolytes #4 monitor the hemoglobin #5 follow-up with the patient
--- NOTE | 2020-07-28 06:48 | XR ---
EXAMINATION TYPE: XR chest 1V portable DATE OF EXAM: 07/28/2020 HISTORY: Post Op CABG COMPARISON: 07/27/2020 TECHNIQUE: Single view of the chest is submitted. FINDINGS: Endotracheal tube, NG tube, SG catheter, mediastinal drains and chest tubes are appropriately placed. Post operative changes of CABG. No sizeable pneumothorax. Scattered Pleural-parenchymal opacities may reflect atelectasis. The heart mildly enlarged. IMPRESSION: 1. Stable Post operative changes of CABG.
[2020-07-28] MEDS: NOREPINEPHRINE 4 MG in SODIUM CHLORIDE 0.9% 250 ML IV SCH ×2 (07:50→15:27)
[2020-07-28 08:20] LABS: Glucose,Whole Blood 118 mg/dL (75-99)
[2020-07-28] MEDS: IPRATROPIUM-ALBUTEROL 3 ML NEB INHALATION SCH ×4 (08:28→21:14)
[2020-07-28] MEDS: CLOPIDOGREL 75 MG TAB PO SCH (08:50)
[2020-07-28] MEDS: METOPROLOL TARTRATE 12.5 MG TAB PO SCH ×2 (08:50→22:10)
[2020-07-28] MEDS: ASPIRIN 325 MG TAB PO SCH (08:50)
[2020-07-28] MEDS: SERTRALINE 100 MG TAB PO SCH (08:51)
[2020-07-28] MEDS: PANTOPRAZOLE 40 MG/10 ML VIAL IVP SCH (08:51)
[2020-07-28] MEDS: HEPARIN SODIUM,PORCINE 5,000 UNIT/ML 1 ML VIAL SQ SCH ×3 (08:51→23:44)
[2020-07-28] MEDS: LACTATED RINGERS 1,000 ML IV SCH (08:53)
[2020-07-28] MEDS ORDERED: MAGNESIUM HYDROXIDE 2,400 MG/10 ML CUP PO PRN (09:00)
--- NOTE | 2020-07-28 09:12 | P.PN ---
Subjective Progress Note Date: 07/28/20 Principal diagnosis: Triple-vessel coronary artery disease, unstable angina. History of coronary artery disease with previous myocardial infarction and stent placement, peripheral arterial disease with lower extremity stenting, lung cancer status post right lower lobectomy in 2012, hypertension, hyperlipidemia, COPD with previous tobacco dependence, anxiety/depression, family history of premature coronary artery disease POD #1 coronary artery bypass grafting 3 vessels, left internal mammary artery to the left anterior descending artery, reverse saphenous vein graft to the obtuse marginal artery, reverse saphenous vein graft to the posterior descending artery, endoscopic harvesting of the right greater saphenous vein, ligation of the left atrial appendage using a 35 mm AtriClip, epi-aortic ultrasound and intraoperative transesophageal echocardiogram Postoperative acute blood loss anemia, expected given hemodilution and cardiopulmonary bypass pump Postoperative right acute/subacute cerebellar infarct, unexpected, although possible complication of any open heart surgery, especially given patient's known history of significant arterial disease The patient was seen and examined at the bedside with Dr. Moffett. She remains sedated on mechanical ventilation. Apparently last night once off sedation she was noted to have left-sided weakness. Stat CT of the brain was completed demonstrating acute/subacute area of infarct in the right cerebellum along with probable area of chronic infarction high right parietal region and age-related atrophy and small vessel disease of aging. She remains in sinus rhythm. Currently hypotensive requiring Levophed, last CO/CI 5.5/2.9 with SVR 1002 on low-dose Primacor. Mediastinal, left pleural chest tubes, right internal jugular [place]/Cordis, right radial arterial line remains present. With lightening of sedation patient does become quite anxious, but she does follow commands on the right side, nods head appropriately. Objective - Vital Signs Vital signs: Vital Signs Temp 99.3 F 07/28/20 08:00 Pulse 76 07/28/20 08:40 Resp 17 07/28/20 08:15 BP 112/56 07/28/20 08:15 Pulse Ox 97 07/28/20 08:15 Intake & Output 07/27/20 07/28/20 07/28/20 18:59 06:59 18:59 Intake Total 153 457.850 195.207 Output Total 2100 785 40 Balance -1947 -327.150 155.207 Weight 86.8 kg Intake: IV 153 250 100 Lactated Ringers 1,000 ml 250 100 @ 50 mls/hr IV .Q20H [facility] Rx#:[id number] Intake, IV Titration 207.850 95.207 Amount Insulin Regular 100 unit 21.69 In Sodium Chloride 0.9% 100 ml @ Per Protocol IV .Q0M [facility] Rx#:[id number] Milrinone-D5w Pmx 20 mg 45.402 In Dextrose/Water 1 100ml .bag @ 0.2 MCG/KG/MIN 4. 962 mls/hr IV .[id number] [facility] Rx#:[id number] Norepinephrine 4 mg In 147.562 73.517 Sodium Chloride 0.9% 250 ml @ 0.05 MCG/KG/MIN 15. 754 mls/hr IV .Q16H8M [facility] Rx#:[id number] propofoL 1,000 mg In 14.886 Empty Bag 1 bag @ Titrate IV .Q0M [facility] Rx#: [id number] Output: Chest Tube Drainage 100 0 Chest Tube Bilateral 60 0 Mediastinal Left Lateral Chest 40 0 Drainage 520 Left Pleural Chest Tube 260 Mediastinal chest tubes 260 Urine 600 165 40 Estimated Blood Loss 1500 Other: Voiding Method Indwelling Catheter Indwelling Catheter ABP, PAP, CO, CI - Last Documented Arterial Blood Pressure 130/49 Pulmonary Artery Pressure 33/16 Cardiac Output 4.6 Cardiac Index 2.4 - Constitutional Constitutional Comment(s): Currently sedated with Precedex on mechanical ventilation, appears comfortable General appearance: Present: obese - Respiratory Details: Lungs sounds diminished bilaterally. Respirations even, nonlabored on mechanical ventilation. Current ventilator settings FiO2 50%, tidal volume 450, respiratory rate 16, PEEP 5. ABG this morning on those settings 7.45/38/92/26/90%/2.2. 8.0 ET tube present, 22 at the lip. Mediastinal chest tube present to continuous wall suction, 70 mL serosanguineous drainage overnight, 300 mL since surgery, no air leak present. Left pleural chest tube present to continuous wall suction, 50 mL serosanguineous drainage overnight, 300 mL since surgery, no air leak present. - Cardiovascular Details: S1, S2 present. Regular rate and rhythm, sinus rhythm on telemetry. Sternum stable. A/V epicardial pacemaker wires present, connected to generator, AAI mode with backup rate 50 bpm. Palpable peripheral pulses bilaterally. No edema present. No calf pain or tenderness noted. Heart hugger, antiembolism stockings, SCDs present. Right internal jugular [place]/Cordis, right radial arterial line present. Last CO/CI 5.5/2.9 with SVR 1002, PA 43/17, CVP 11-13. Remains on IV Levophed for hypotension, low dose IV Primacor - Gastrointestinal Gastrointestinal Comment(s): Abdomen soft, nontender, nondistended. Hypoactive bowel sounds present 4 quadrants. OG tube present and connected to low intermittent suction with small amount of greenish bile-looking drainage - Genitourinary Genitourinary Comment(s): Da Silva present draining clear, yellow urine. Output 30-60 mL/h overnight. - Integumentary Integumentary Comment(s): Skin is warm and dry with evidence of good perfusion. Anterior chest incision well approximated and covered with dry intact dressing. Right lower extremity EVH site well approximated without redness or drainage. - Neurologic Neurologic Comment(s): Nods head appropriately, pupils equal round and reactive to light and accommodation, 3 mm down to 2 mm. Able to move right arm and leg to command; unable to move left side, no movement with painful stimuli, left-sided downgoing Babinski - Musculoskeletal Musculoskeletal: Present: left sided weakness - Psychiatric Psychiatric Comment(s): Currently sedated with propofol on mechanical ventilation, however does nod head appropriately and follows commands on the right side - Allied health notes Allied health notes reviewed: nursing - Labs CBC & Chem 7: 07/28/20 04:50 07/28/20 04:50 Labs: Abnormal Lab Results - Last 24 Hours (Table) 07/26/20 07/27/20 07/27/20 Range/Units 07:12 08:45 10:09 WBC (3.8-10.6) k/uL RBC (3.80-5.40) m/uL Hgb (11.4-16.0) gm/dL Hct (34.0-46.0) % Neutrophils # (1.3-7.7) k/uL Lymphocytes # (1.0-4.8) k/uL ABG pH (7.35-7.45) ABG pO2 425 H 127 H (83-108) mmHg ABG HCO3 26 H (21-25) mmol/L ABG Total CO2 27 H 27 H (19-24) mmol/L ABG O2 Saturation 100.0 H 99.1 H (94-97) % ABG Hematocrit 30 L 29 L (34.0-46.0) % ABG Sodium (135-146) mmol/L ABG Potassium (3.4-4.5) mmol/L ABG Ionized Calcium (4.5-5.3) mg/dL ABG Glucose 112 H (75-99) mg/dL Hemoglobin 9.9 L 9.4 L (11.4-16.0) gm/dL Chloride (98-107) mmol/L Glucose (74-99) mg/dL POC Glucose (mg/dL) (75-99) mg/dL Calcium (8.4-10.2) mg/dL Magnesium (1.6-2.3) mg/dL AST (14-36) U/L Alkaline Phosphatase (38-126) U/L Total Protein (6.3-8.2) g/dL Albumin (3.5-5.0) g/dL Arterial Blood Potassium (3.4-4.5) mmol/L Arterial Blood Glucose 112 H (75-99) mg/dL Crossmatch See Detail 07/27/20 07/27/20 07/27/20 Range/Units 11:03 11:31 12:13 WBC (3.8-10.6) k/uL RBC (3.80-5.40) m/uL Hgb (11.4-16.0) gm/dL Hct (34.0-46.0) % Neutrophils # (1.3-7.7) k/uL Lymphocytes # (1.0-4.8) k/uL ABG pH (7.35-7.45) ABG pO2 >420 H 367 H 374 H (83-108) mmHg ABG HCO3 (21-25) mmol/L ABG Total CO2 26 H 26 H 26 H (19-24) mmol/L ABG O2 Saturation 100.0 H 100.0 H 100.0 H (94-97) % ABG Hematocrit 19 L* 21 L 21 L (34.0-46.0) % ABG Sodium 134 L (135-146) mmol/L ABG Potassium 5.3 H 5.2 H 5.3 H (3.4-4.5) mmol/L ABG Ionized Calcium 4.1 L 4.3 L 4.4 L (4.5-5.3) mg/dL ABG Glucose 190 H 164 H 193 H (75-99) mg/dL Hemoglobin 6.3 L* 6.7 L* 6.8 L* (11.4-16.0) gm/dL Chloride (98-107) mmol/L Glucose (74-99) mg/dL POC Glucose (mg/dL) (75-99) mg/dL Calcium (8.4-10.2) mg/dL Magnesium (1.6-2.3) mg/dL AST (14-36) U/L Alkaline Phosphatase (38-126) U/L Total Protein (6.3-8.2) g/dL Albumin (3.5-5.0) g/dL Arterial Blood Potassium 5.3 H 5.2 H 5.3 H (3.4-4.5) mmol/L Arterial Blood Glucose 190 H 164 H 193 H (75-99) mg/dL Crossmatch 07/27/20 07/27/20 07/27/20 Range/Units 12:35 13:53 14:51 WBC (3.8-10.6) k/uL RBC (3.80-5.40) m/uL Hgb (11.4-16.0) gm/dL Hct (34.0-46.0) % Neutrophils # (1.3-7.7) k/uL Lymphocytes # (1.0-4.8) k/uL ABG pH (7.35-7.45) ABG pO2 >420 H 337 H (83-108) mmHg ABG HCO3 (21-25) mmol/L ABG Total CO2 26 H 26 H (19-24) mmol/L ABG O2 Saturation 100.0 H 100.0 H (94-97) % ABG Hematocrit 21 L 25 L (34.0-46.0) % ABG Sodium (135-146) mmol/L ABG Potassium 5.0 H (3.4-4.5) mmol/L ABG Ionized Calcium 4.3 L (4.5-5.3) mg/dL ABG Glucose 170 H 117 H (75-99) mg/dL Hemoglobin 6.7 L* 8.1 L (11.4-16.0) gm/dL Chloride (98-107) mmol/L Glucose (74-99) mg/dL POC Glucose (mg/dL) 130 H (75-99) mg/dL Calcium (8.4-10.2) mg/dL Magnesium (1.6-2.3) mg/dL AST (14-36) U/L Alkaline Phosphatase (38-126) U/L Total Protein (6.3-8.2) g/dL Albumin (3.5-5.0) g/dL Arterial Blood Potassium 5.0 H (3.4-4.5) mmol/L Arterial Blood Glucose 170 H 117 H (75-99) mg/dL Crossmatch 07/27/20 07/27/20 07/27/20 Range/Units 14:52 14:52 15:18 WBC 12.6 H (3.8-10.6) k/uL RBC 2.58 L (3.80-5.40) m/uL Hgb 7.7 L D (11.4-16.0) gm/dL Hct 23.7 L (34.0-46.0) % Neutrophils # 9.8 H (1.3-7.7) k/uL Lymphocytes # (1.0-4.8) k/uL ABG pH 7.30 L (7.35-7.45) ABG pO2 136 H (83-108) mmHg ABG HCO3 (21-25) mmol/L ABG Total CO2 (19-24) mmol/L ABG O2 Saturation 99.2 H (94-97) % ABG Hematocrit (34.0-46.0) % ABG Sodium (135-146) mmol/L ABG Potassium (3.4-4.5) mmol/L ABG Ionized Calcium (4.5-5.3) mg/dL ABG Glucose (75-99) mg/dL Hemoglobin (11.4-16.0) gm/dL Chloride 108 H (98-107) mmol/L Glucose 119 H (74-99) mg/dL POC Glucose (mg/dL) (75-99) mg/dL Calcium 8.1 L (8.4-10.2) mg/dL Magnesium 2.7 H (1.6-2.3) mg/dL AST (14-36) U/L Alkaline Phosphatase 36 L (38-126) U/L Total Protein 5.0 L (6.3-8.2) g/dL Albumin 3.3 L (3.5-5.0) g/dL Arterial Blood Potassium (3.4-4.5) mmol/L Arterial Blood Glucose (75-99) mg/dL Crossmatch 07/27/20 07/27/20 07/27/20 Range/Units 17:19 18:22 19:02 WBC 11.2 H (3.8-10.6) k/uL RBC 2.52 L (3.80-5.40) m/uL Hgb 7.4 L (11.4-16.0) gm/dL Hct 22.8 L (34.0-46.0) % Neutrophils # 9.5 H (1.3-7.7) k/uL Lymphocytes # (1.0-4.8) k/uL ABG pH (7.35-7.45) ABG pO2 (83-108) mmHg ABG HCO3 (21-25) mmol/L ABG Total CO2 (19-24) mmol/L ABG O2 Saturation (94-97) % ABG Hematocrit (34.0-46.0) % ABG Sodium (135-146) mmol/L ABG Potassium (3.4-4.5) mmol/L ABG Ionized Calcium (4.5-5.3) mg/dL ABG Glucose (75-99) mg/dL Hemoglobin (11.4-16.0) gm/dL Chloride (98-107) mmol/L Glucose (74-99) mg/dL POC Glucose (mg/dL) 134 H 141 H (75-99) mg/dL Calcium (8.4-10.2) mg/dL Magnesium (1.6-2.3) mg/dL AST (14-36) U/L Alkaline Phosphatase (38-126) U/L Total Protein (6.3-8.2) g/dL Albumin (3.5-5.0) g/dL Arterial Blood Potassium (3.4-4.5) mmol/L Arterial Blood Glucose (75-99) mg/dL Crossmatch 07/27/20 07/27/20 07/27/20 Range/Units 20:56 22:07 22:54 WBC (3.8-10.6) k/uL RBC (3.80-5.40) m/uL Hgb (11.4-16.0) gm/dL Hct (34.0-46.0) % Neutrophils # (1.3-7.7) k/uL Lymphocytes # (1.0-4.8) k/uL ABG pH (7.35-7.45) ABG pO2 (83-108) mmHg ABG HCO3 (21-25) mmol/L ABG Total CO2 (19-24) mmol/L ABG O2 Saturation (94-97) % ABG Hematocrit (34.0-46.0) % ABG Sodium (135-146) mmol/L ABG Potassium (3.4-4.5) mmol/L ABG Ionized Calcium (4.5-5.3) mg/dL ABG Glucose (75-99) mg/dL Hemoglobin (11.4-16.0) gm/dL Chloride (98-107) mmol/L Glucose (74-99) mg/dL POC Glucose (mg/dL) 138 H 129 H 112 H (75-99) mg/dL Calcium (8.4-10.2) mg/dL Magnesium (1.6-2.3) mg/dL AST (14-36) U/L Alkaline Phosphatase (38-126) U/L Total Protein (6.3-8.2) g/dL Albumin (3.5-5.0) g/dL Arterial Blood Potassium (3.4-4.5) mmol/L Arterial Blood Glucose (75-99) mg/dL Crossmatch 07/27/20 07/28/20 07/28/20 Range/Units 23:56 01:40 03:45 WBC (3.8-10.6) k/uL RBC (3.80-5.40) m/uL Hgb (11.4-16.0) gm/dL Hct (34.0-46.0) % Neutrophils # (1.3-7.7) k/uL Lymphocytes # (1.0-4.8) k/uL ABG pH (7.35-7.45) ABG pO2 (83-108) mmHg ABG HCO3 (21-25) mmol/L ABG Total CO2 (19-24) mmol/L ABG O2 Saturation (94-97) % ABG Hematocrit (34.0-46.0) % ABG Sodium (135-146) mmol/L ABG Potassium (3.4-4.5) mmol/L ABG Ionized Calcium (4.5-5.3) mg/dL ABG Glucose (75-99) mg/dL Hemoglobin (11.4-16.0) gm/dL Chloride (98-107) mmol/L Glucose (74-99) mg/dL POC Glucose (mg/dL) 139 H 150 H 123 H (75-99) mg/dL Calcium (8.4-10.2) mg/dL Magnesium (1.6-2.3) mg/dL AST (14-36) U/L Alkaline Phosphatase (38-126) U/L Total Protein (6.3-8.2) g/dL Albumin (3.5-5.0) g/dL Arterial Blood Potassium (3.4-4.5) mmol/L Arterial Blood Glucose (75-99) mg/dL Crossmatch 07/28/20 07/28/20 07/28/20 Range/Units 04:50 04:50 04:50 WBC 10.7 H (3.8-10.6) k/uL RBC 2.37 L (3.80-5.40) m/uL Hgb 7.4 L (11.4-16.0) gm/dL Hct 21.6 L (34.0-46.0) % Neutrophils # 8.9 H (1.3-7.7) k/uL Lymphocytes # 0.9 L (1.0-4.8) k/uL ABG pH (7.35-7.45) ABG pO2 (83-108) mmHg ABG HCO3 26 H (21-25) mmol/L ABG Total CO2 27 H (19-24) mmol/L ABG O2 Saturation 98.3 H (94-97) % ABG Hematocrit (34.0-46.0) % ABG Sodium (135-146) mmol/L ABG Potassium (3.4-4.5) mmol/L ABG Ionized Calcium (4.5-5.3) mg/dL ABG Glucose (75-99) mg/dL Hemoglobin (11.4-16.0) gm/dL Chloride 108 H (98-107) mmol/L Glucose 118 H (74-99) mg/dL POC Glucose (mg/dL) (75-99) mg/dL Calcium 8.2 L (8.4-10.2) mg/dL Magnesium (1.6-2.3) mg/dL AST 105 H (14-36) U/L Alkaline Phosphatase 36 L (38-126) U/L Total Protein 5.0 L (6.3-8.2) g/dL Albumin 3.1 L (3.5-5.0) g/dL Arterial Blood Potassium (3.4-4.5) mmol/L Arterial Blood Glucose (75-99) mg/dL Crossmatch 07/28/20 07/28/20 07/28/20 Range/Units 04:52 06:40 08:18 WBC (3.8-10.6) k/uL RBC (3.80-5.40) m/uL Hgb (11.4-16.0) gm/dL Hct (34.0-46.0) % Neutrophils # (1.3-7.7) k/uL Lymphocytes # (1.0-4.8) k/uL ABG pH (7.35-7.45) ABG pO2 (83-108) mmHg ABG HCO3 (21-25) mmol/L ABG Total CO2 (19-24) mmol/L ABG O2 Saturation (94-97) % ABG Hematocrit (34.0-46.0) % ABG Sodium (135-146) mmol/L ABG Potassium (3.4-4.5) mmol/L ABG Ionized Calcium (4.5-5.3) mg/dL ABG Glucose (75-99) mg/dL Hemoglobin (11.4-16.0) gm/dL Chloride (98-107) mmol/L Glucose (74-99) mg/dL POC Glucose (mg/dL) 125 H 128 H 118 H (75-99) mg/dL Calcium (8.4-10.2) mg/dL Magnesium (1.6-2.3) mg/dL AST (14-36) U/L Alkaline Phosphatase (38-126) U/L Total Protein (6.3-8.2) g/dL Albumin (3.5-5.0) g/dL Arterial Blood Potassium (3.4-4.5) mmol/L Arterial Blood Glucose (75-99) mg/dL Crossmatch - Imaging and Cardiology Chest x-ray: report reviewed, image reviewed Assessment and Plan Assessment: 1. Triple-vessel coronary artery disease, unstable angina, status post three- vessel CABG 2. History of coronary artery disease with previous myocardial infarction and stent placement 3. Peripheral arterial disease with lower extremity stenting 4. History of lung cancer status post right lower lobectomy 5. Hypertension, currently hypotensive requiring IV pressors 6. Hyperlipidemia, treated, cholesterol 152, LDL 85 7. COPD with previous tobacco dependence, preoperative FEV1 82% of predicted 8. Anxiety/depression 9. Family history of premature coronary artery disease 10. Postoperative acute blood loss anemia, expected 11. Postoperative acute/subacute right cerebellar infarct, unexpected Plan: 1. Continue ASA, statin, Plavix, beta tran. Will increase beta tran therapy as tolerated 2. Will wean IV Primacor. Wean levo as tolerated. Discontinue IV nitro 3. Mechanical ventilation per pulmonology. May wean to extubate when able. Bronchodilators per pulmonology 4. Neurology consulted, appreciate recommendations 5. Once extubated will increase activity as tolerated, work to improve movement on the left side. PT/OT/cardiac rehab consulted 6. Once extubated will encourage incentive spirometry use 7. Will monitor daily labs and x-rays. Electrolyte replacement per protocol. 8. GI/DVT prophylaxis 9. Pain control is current medication regimen 10. Will discontinue mediastinal chest tubes. Continue left pleural chest tube for another 24 hours. 11. Will continue Da Silva catheter for another 24 hours 12. Strict accurate intake and output. Daily weights 13. Will discontinue [place] once Primacor is off. Connect Cordis to continuous CVP monitoring 14. Will update patient's family 15. Will consult social work as patient will need rehab at discharge 16. More recommendations to follow based on patient's clinical course Time with Patient: Greater than 30
[2020-07-28] MEDS ORDERED: LORazepam 2 MG/ML INJ IV STA (09:33)
[2020-07-28] MEDS ORDERED: LORazepam 2 MG/ML INJ ONE (09:37)
[2020-07-28 09:53] LABS: Glucose,Whole Blood 102 mg/dL (75-99)
[2020-07-28 11:11] LABS: Glucose,Whole Blood 119 mg/dL (75-99)
--- NOTE | 2020-07-28 12:44 | P.CNNES ---
History of Present Illness Consult date: 07/28/20 Requesting physician: Lana Ward Reason for Consult: acute/subacute right cerebellar cva (per CT) post cabg History of Present Illness: This is a 75-year-old woman with medical history of coronary artery disease, previous LA and stent, peripheral vessel occlusion, history of lung cancer with previous right lower lobectomy, hypertension, previous tobacco use that was transfered to [facility] on 07/21/2020 for chest pain and shortness of breath from outside facility. Neurology is consulted for acute/subacute stroke. History is obtained from medical records since patient is unable to provide that. Initially presented to [facility] for chest pain or shortness of breath and was noted to have elevated BNP and troponin. She also had abnormal EKG and as a result she was transferred to [facility]. During her hospital stay she underwent the cardiac catheterization will which demons trated severed triple vessel coronary artery disease. As a result cardiothoracic surgery team was consulted and the patient underwent. The patient underwent coronary artery bypass grafting yesterday (07/27/2020). Patient was intubated and was on ventilator. Today while the patient was off sedation was noted that the patient had left-sided weakness. She had a CT of the head (07/28/2020) which is poor as acute/subacute area of infarct in the right cerebellum along with probable area of chronic infarction in the right parietal region and age atrophy and small vessel disease of aging. She co ntinues to be hypotensive requiring levophed. She's been having blood pressure as low as systolic in the 90s and diastolic between 40s to 50s. Patient has family history of premature coronary artery disease Upon checking the patient's home medication patient is on aspirin 81 mg and Lipitor 80 mg. In the hospital she is on aspirin 325, Plavix 75 and Lipitor 80 mg. Patient is on [place] 5/325 every 4 hours PRN, Toradol 50 mg IV every 6 hours, She received Ativan 0.5 mg once at around 9:30 3 in the morning. Some of Other workup in our facility: Carotid duplex on 07/23/2020 is reported as extensive plaque with no significant hemodynamic stenosis 2-D echo was reported as moderate concentric left ventricular hypertrophy. Ejection fraction of 50-55%. Basal inferior left ventricle wall motion is a hypokinetic. Basal inferior septal left ventricle wall motion is hypokinetic. Left atrium is normal in size. On initial presentation patient's white blood cells 8.3 and currently 10.7. Initial presentation hemoglobin was 12.7 and currently is 7.4. Currently the POC glucose has been in the range of 100 to 120s. AST of 105 and ALT is 19. Lipid panel: Triglyceride 140, cholesterol 152, LDL of 85, HDL of 39. TSH is 1.66 which is normal. Review of Systems Review of system is limited but the per positive and negative as per HPI. Past Medical History Past Medical History: Coronary Artery Disease (CAD), Cancer, Chest Pain / Angina, Heart Failure, COPD, Hyperlipidemia, Hypertension, Myocardial Infarction (LA), Osteoarthritis (OA), Vascular Disorder Additional Past Medical History / Comment(s): hx. lung cancer, hx. colon polyps, frequent lower side pain, urinary frequency, PAD with lower extremity stenting Last Myocardial Infarction Date:: unknown History of Any Multi-Drug Resistant Organisms: None Reported Past Surgical History: Heart Catheterization With Stent, Hysterectomy Additional Past Surgical History / Comment(s): right lower lobectomy, colonoscopies, stenting,angioplasty lower legs Past Anesthesia/Blood Transfusion Reactions: No Reported Reaction Date of Last Stent Placement:: 2004 Past Psychological History: Anxiety, Depression Smoking Status: Former smoker Past Alcohol Use History: None Reported Additional Past Alcohol Use History / Comment(s): quit smoking 2011, 1ppd since teens, doesn't drink much anymore Past Drug Use History: None Reported - Past Family History Mother Family Medical History: Cancer Additional Family Medical History / Comment(s): colon Son(s) Family Medical History: Coronary Artery Disease (CAD) Additional Family Medical History / Comment(s): 1 son having CABG in his late 40s, the other son having CABG in his mid 50s Medications and Allergies Home Medications Medication Instructions Recorded Confirmed Type ALPRAZolam [Xanax] 0.25 mg PO BID 04/02/18 07/21/20 History Aspirin EC [Ecotrin Low Dose] 81 mg PO HS 04/02/18 07/21/20 History Atorvastatin [Lipitor] 80 mg PO HS 04/02/18 07/21/20 History Cholecalciferol [Vitamin D3 (25 1,000 unit PO HS 04/02/18 07/21/20 History Mcg = 1000 Iu)] Clopidogrel [Plavix] 75 mg PO HS 04/02/18 07/21/20 History Ezetimibe [Zetia] 10 mg PO HS 04/02/18 07/21/20 History HYDROcodone/APAP 5-325MG [[place] 1 tab PO TID 04/02/18 07/21/20 History 5-325] Sertraline [Zoloft] 100 mg PO HS 04/02/18 07/21/20 History cilostazoL [Pletal] 100 mg PO BID 04/02/18 07/21/20 History Carvedilol [Coreg] 12.5 mg PO BID 03/19/19 07/21/20 History Losartan [Cozaar] 25 mg PO HS 03/19/19 07/21/20 History Cyclobenzaprine [Flexeril] 10 mg PO BID PRN 07/21/20 07/21/20 History Gabapentin [Neurontin] 300 mg PO BID 07/21/20 07/21/20 History Ibuprofen [Motrin] 800 mg PO Q12H PRN 07/21/20 07/21/20 History amLODIPine [Norvasc] 5 mg PO DAILY 07/21/20 07/21/20 History traZODone HCL 100 mg PO HS 07/21/20 07/21/20 History Allergies Allergy/AdvReac Type Severity Reaction Status Date / Time Penicillins AdvReac Rash/Hives, Verified 07/21/20 09:44 LOC zolpidem [From Ambien] AdvReac Hallucinati Verified 07/21/20 09:44 ons Physical Examination - Vital Signs Vital Signs: Vital Signs Temp Pulse Pulse Resp BP Pulse Ox 07/28/20 10:00 10 L 94 L 07/28/20 09:45 11 L 100 07/28/20 09:30 13 100 07/28/20 09:15 18 119/54 97 07/28/20 09:00 18 97 07/28/20 08:53 75 07/28/20 08:45 16 98 07/28/20 08:40 76 07/28/20 08:30 14 97 07/28/20 08:15 71 17 112/56 97 07/28/20 08:00 99.3 F 72 17 113/52 97 07/28/20 07:45 70 17 114/56 97 02/20/21 07:30 71 18 94/50 97 07/28/20 07:15 17 97/45 07/28/20 07:00 5 L 76/43 07/28/20 06:45 15 142/65 07/28/20 06:30 18 138/82 07/28/20 06:15 90 16 117/53 07/28/20 06:00 92 17 108/58 98 07/28/20 05:45 16 114/61 07/28/20 05:30 72 17 105/51 07/28/20 05:15 18 07/28/20 05:00 17 102/50 07/28/20 04:45 17 98/63 07/28/20 04:30 20 90/50 07/28/20 04:15 17 07/28/20 04:00 100.2 F H 70 70 20 120/63 99 07/28/20 03:45 22 104/52 07/28/20 03:30 70 22 91/57 99 07/28/20 03:15 24 105/72 95 07/28/20 03:00 72 22 99/86 98 07/28/20 02:45 32 H 100/59 07/28/20 02:30 70 20 106/58 07/28/20 02:15 17 107/56 07/28/20 02:00 70 17 101/59 98 07/28/20 01:50 17 101/59 93 L 07/28/20 01:40 16 97/53 89 L 07/28/20 01:30 17 115/62 88 L 07/28/20 01:20 19 115/62 91 L 07/28/20 00:40 104/61 07/28/20 00:30 18 96/57 93 L 07/28/20 00:20 18 96/57 92 L 07/28/20 00:10 17 92/53 93 L 07/28/20 00:00 16 121/69 96 07/27/20 23:50 24 121/69 96 07/27/20 23:40 18 144/72 92 L 07/27/20 23:30 21 140/93 92 L 07/27/20 23:20 25 H 140/93 93 L 07/27/20 23:10 18 148/81 90 L 07/27/20 23:00 40 H 131/67 90 L 02/19/21 22:50 19 131/67 92 L 07/27/20 22:40 20 117/59 97 07/27/20 22:30 17 113/61 93 L 07/27/20 22:20 17 113/61 95 07/27/20 22:10 17 117/68 96 07/27/20 22:00 18 97/55 95 07/27/20 21:50 16 97/55 96 07/27/20 21:40 16 100/57 94 L 07/27/20 21:30 16 106/58 96 07/27/20 21:20 11 L 106/58 93 L 07/27/20 21:10 17 101/54 90 L 07/27/20 21:00 18 104/55 91 L 07/27/20 20:50 17 104/55 91 L 07/27/20 20:40 17 95/59 95 07/27/20 20:30 17 92/51 92 L 07/27/20 20:20 17 92/51 92 L 07/27/20 20:10 17 90/51 92 L 07/27/20 20:00 19 101/53 91 L 07/27/20 19:50 15 101/53 92 L 07/27/20 19:40 24 92/67 90 L 07/27/20 19:30 24 92/54 91 L 07/27/20 19:20 24 92/54 94 L 07/27/20 19:17 70 07/27/20 19:10 95/43 99 07/27/20 19:04 72 07/27/20 19:00 26 H 109/55 100 07/27/20 18:50 28 H 109/55 100 07/27/20 18:40 5 L 102/69 07/27/20 18:30 0 L 105/56 07/27/20 18:20 24 105/56 97 07/27/20 18:10 5 L 94/75 07/27/20 18:00 21 106/53 99 07/27/20 17:50 3 L 106/53 90 L 07/27/20 17:40 7 L 88/46 07/27/20 16:02 84 07/27/20 15:47 88 Intake and Output 07/27/20 07/28/20 07/28/20 22:59 06:59 14:59 Intake Total 457.850 553.171 Output Total 785 80 Balance -327.150 473.171 Intake: IV 250 270 CO/CI 20 Lactated Ringers 1,000 ml 250 200 @ 50 mls/hr IV .Q20H [facility] Rx#:[id number] ceFAZolin 2 gm In Sodium 50 Chloride 0.9% 50 ml @ 100 mls/hr IVPB Q8H [facility] Rx#: [id number] Intake, IV Titration 207.850 283.171 Amount Dexmedetomidine/0.9% NaCl 81.928 (Pmx) 400 mcg In Empty Bag 1 bag @ Titrate IV . Q0M [facility] Rx#:[id number] Insulin Regular 100 unit 22.473 In Sodium Chloride 0.9% 100 ml @ Per Protocol IV .Q0M [facility] Rx#:[id number] Milrinone-D5w Pmx 20 mg 45.402 41.185 In Dextrose/Water 1 100ml .bag @ 0.2 MCG/KG/MIN 4. 962 mls/hr IV .[id number] [facility] Rx#:[id number] Norepinephrine 4 mg In 147.562 137.585 Sodium Chloride 0.9% 250 ml @ 0.05 MCG/KG/MIN 15. 754 mls/hr IV .Q16H8M [facility] Rx#:[id number] propofoL 1,000 mg In 14.886 Empty Bag 1 bag @ Titrate IV .Q0M PRN Rx#: [id number] Output: Chest Tube Drainage 100 0 Chest Tube Bilateral 60 0 Mediastinal Left Lateral Chest 40 0 Drainage 520 Left Pleural Chest Tube 260 Mediastinal chest tubes 260 Urine 165 80 Other: Voiding Method Indwelling Catheter Indwelling Catheter Weight 86.8 kg ABP, PAP, CO, CI - Last 8 Hours Arterial Blood Pressure 93/43 Arterial Blood Pressure 137/52 Arterial Blood Pressure 144/57 Arterial Blood Pressure 132/48 Arterial Blood Pressure 118/50 Arterial Blood Pressure 127/44 Arterial Blood Pressure 128/49 Arterial Blood Pressure 130/49 Arterial Blood Pressure 127/48 Arterial Blood Pressure 132/50 Arterial Blood Pressure 131/48 Arterial Blood Pressure 114/46 Arterial Blood Pressure 98/41 Arterial Blood Pressure 122/55 Arterial Blood Pressure 152/59 Arterial Blood Pressure 124/51 Arterial Blood Pressure 126/49 Arterial Blood Pressure 135/52 Arterial Blood Pressure 125/51 Arterial Blood Pressure 110/47 Arterial Blood Pressure 114/47 Arterial Blood Pressure 92/44 Arterial Blood Pressure 125/53 Pulmonary Artery Pressure 34/15 Pulmonary Artery Pressure 42/16 Pulmonary Artery Pressure 45/15 Pulmonary Artery Pressure 38/18 Pulmonary Artery Pressure 37/15 Pulmonary Artery Pressure 37/15 Pulmonary Artery Pressure 37/17 Pulmonary Artery Pressure 33/16 Pulmonary Artery Pressure 33/16 Pulmonary Artery Pressure 32/15 Pulmonary Artery Pressure 38/18 Pulmonary Artery Pressure 33/17 Pulmonary Artery Pressure 28/12 Pulmonary Artery Pressure 27/12 Pulmonary Artery Pressure 40/16 Pulmonary Artery Pressure 43/17 Pulmonary Artery Pressure 34/17 Pulmonary Artery Pressure 35/16 Pulmonary Artery Pressure 36/18 Pulmonary Artery Pressure 36/18 Pulmonary Artery Pressure 31/15 Pulmonary Artery Pressure 34/15 Pulmonary Artery Pressure 35/19 Pulmonary Artery Pressure 29/14 Pulmonary Artery Pressure 30/15 Pulmonary Artery Pressure 40/16 Pulmonary Artery Pressure 41/21 Pulmonary Artery Pressure 33/10 Cardiac Output 4.6 Cardiac Output 4.6 Cardiac Output 4.6 Cardiac Output 4.6 Cardiac Output 4.6 Cardiac Output 4.6 Cardiac Output 4.6 Cardiac Output 5.5 Cardiac Output 5.5 Cardiac Output 5.5 Cardiac Output 4.4 Cardiac Index 2.4 Cardiac Index 2.4 Cardiac Index 2.4 Cardiac Index 2.4 Cardiac Index 2.4 Cardiac Index 2.4 Cardiac Index 2.4 Cardiac Index 2.9 Cardiac Index 2.9 Cardiac Index 2.9 Cardiac Index 2.3 GENERAL: The patient is lying in bed and is not in acute distress. CHEST: The heart rate is regular rate rhythm. No murmurs to auscultation. No carotid bruit bilaterally. LUNG: Clear to auscultation bilaterally no wheezing noted throughout. Not labored breathing. Intubated and on ventilator (breathing over the vent). Patient has chest tube. ABDOMEN/GI: Bowel sounds present in all 4 quadrants. No tenderness to palpation throughout. NEUROLOGICAL: Limited since the patient is intubated on ventilator and on Precedex 0.5mcg/kg/hour. Also received Ativan 0.5mg once in AM. Higher mental function: The patient is drowsy but briefly opens eyes to painful stimuli. She is not following commands. Cranial nerves: The pupils are round, equal 2-3mm bilaterally and reactive to light. Primary gaze at midline. No facial weakness. Rest of cranial nerves unable to assess. Motor: Gait is deferred. The strength is able to withdrawl the right upper and lower extremity to painful stimuli. While only moves left foot digits to painful stimuli otherwise no movement over the left side. Normal tone and bulk. Cerebellum: Unable to assess. Sensation:Could not assess light touch. Reflexes (right/left): 1+ throughout. Plantars are downgoing bilaterally. Results Coagulation study last done was on 07/27/2020 and PT is 11.9, INR is 1.1, PTT is 26.0. Sampson virus PCR was not detected that. Hepatitis a B and C is nonreactive. - Laboratory Findings CBC and BMP: 07/28/20 04:50 07/28/20 04:50 Abnormal Lab Findings: Abnormal Labs 07/22/20 07/23/20 07/23/20 05:43 07:32 12:00 WBC RBC Hgb Hct Neutrophils # Lymphocytes # ABG pH ABG pO2 ABG HCO3 ABG Total CO2 ABG O2 Saturation ABG Hematocrit ABG Sodium ABG Potassium ABG Ionized Calcium ABG Glucose Hemoglobin Sodium 136 L Chloride BUN 33 H 42 H Glucose 131 H 102 H POC Glucose (mg/dL) Calcium Magnesium AST Alkaline Phosphatase Total Protein Albumin HDL Cholesterol Arterial Blood Potassium Arterial Blood Glucose Ur Specific [place] 1.036 H Ur Leukocyte Esterase Small H Urine WBC 7 H Ur Squamous Epith Cells 5 H Urine Mucus Rare H Crossmatch 07/24/20 07/25/20 07/25/20 08:42 07:44 07:44 WBC RBC 3.68 L Hgb 10.9 L Hct Neutrophils # Lymphocytes # ABG pH ABG pO2 ABG HCO3 ABG Total CO2 ABG O2 Saturation ABG Hematocrit ABG Sodium ABG Potassium ABG Ionized Calcium ABG Glucose Hemoglobin Sodium Chloride BUN 36 H 32 H Glucose 127 H 111 H POC Glucose (mg/dL) Calcium Magnesium AST Alkaline Phosphatase Total Protein Albumin HDL Cholesterol 39 L Arterial Blood Potassium Arterial Blood Glucose Ur Specific [place] Ur Leukocyte Esterase Urine WBC Ur Squamous Epith Cells Urine Mucus Crossmatch 07/26/20 07/26/20 07/27/20 07:12 07:12 05:17 WBC RBC Hgb Hct Neutrophils # Lymphocytes # ABG pH ABG pO2 ABG HCO3 ABG Total CO2 ABG O2 Saturation ABG Hematocrit ABG Sodium ABG Potassium ABG Ionized Calcium ABG Glucose Hemoglobin Sodium Chloride BUN 22 H Glucose POC Glucose (mg/dL) 103 H Calcium Magnesium AST Alkaline Phosphatase Total Protein Albumin HDL Cholesterol Arterial Blood Potassium Arterial Blood Glucose Ur Specific [place] Ur Leukocyte Esterase Urine WBC Ur Squamous Epith Cells Urine Mucus Crossmatch See Detail 07/27/20 07/27/20 07/27/20 08:45 10:09 11:03 WBC RBC Hgb Hct Neutrophils # Lymphocytes # ABG pH ABG pO2 425 H 127 H >420 H ABG HCO3 26 H ABG Total CO2 27 H 27 H 26 H ABG O2 Saturation 100.0 H 99.1 H 100.0 H ABG Hematocrit 30 L 29 L 19 L* ABG Sodium 134 L ABG Potassium 5.3 H ABG Ionized Calcium 4.1 L ABG Glucose 112 H 190 H Hemoglobin 9.9 L 9.4 L 6.3 L* Sodium Chloride BUN Glucose POC Glucose (mg/dL) Calcium Magnesium AST Alkaline Phosphatase Total Protein Albumin HDL Cholesterol Arterial Blood Potassium 5.3 H Arterial Blood Glucose 112 H 190 H Ur Specific [place] Ur Leukocyte Esterase Urine WBC Ur Squamous Epith Cells Urine Mucus Crossmatch 07/27/20 07/27/20 07/27/20 11:31 12:13 12:35 WBC RBC Hgb Hct Neutrophils # Lymphocytes # ABG pH ABG pO2 367 H 374 H >420 H ABG HCO3 ABG Total CO2 26 H 26 H 26 H ABG O2 Saturation 100.0 H 100.0 H 100.0 H ABG Hematocrit 21 L 21 L 21 L ABG Sodium ABG Potassium 5.2 H 5.3 H 5.0 H ABG Ionized Calcium 4.3 L 4.4 L 4.3 L ABG Glucose 164 H 193 H 170 H Hemoglobin 6.7 L* 6.8 L* 6.7 L* Sodium Chloride BUN Glucose POC Glucose (mg/dL) Calcium Magnesium AST Alkaline Phosphatase Total Protein Albumin HDL Cholesterol Arterial Blood Potassium 5.2 H 5.3 H 5.0 H Arterial Blood Glucose 164 H 193 H 170 H Ur Specific [place] Ur Leukocyte Esterase Urine WBC Ur Squamous Epith Cells Urine Mucus Crossmatch 07/27/20 07/27/20 07/27/20 13:53 14:51 14:52 WBC 12.6 H RBC 2.58 L Hgb 7.7 L D Hct 23.7 L Neutrophils # 9.8 H Lymphocytes # ABG pH ABG pO2 337 H ABG HCO3 ABG Total CO2 26 H ABG O2 Saturation 100.0 H ABG Hematocrit 25 L ABG Sodium ABG Potassium ABG Ionized Calcium ABG Glucose 117 H Hemoglobin 8.1 L Sodium Chloride BUN Glucose POC Glucose (mg/dL) 130 H Calcium Magnesium AST Alkaline Phosphatase Total Protein Albumin HDL Cholesterol Arterial Blood Potassium Arterial Blood Glucose 117 H Ur Specific [place] Ur Leukocyte Esterase Urine WBC Ur Squamous Epith Cells Urine Mucus Crossmatch 07/27/20 07/27/20 07/27/20 14:52 15:18 17:19 WBC RBC Hgb Hct Neutrophils # Lymphocytes # ABG pH 7.30 L ABG pO2 136 H ABG HCO3 ABG Total CO2 ABG O2 Saturation 99.2 H ABG Hematocrit ABG Sodium ABG Potassium ABG Ionized Calcium ABG Glucose Hemoglobin Sodium Chloride 108 H BUN Glucose 119 H POC Glucose (mg/dL) 134 H Calcium 8.1 L Magnesium 2.7 H AST Alkaline Phosphatase 36 L Total Protein 5.0 L Albumin 3.3 L HDL Cholesterol Arterial Blood Potassium Arterial Blood Glucose Ur Specific [place] Ur Leukocyte Esterase Urine WBC Ur Squamous Epith Cells Urine Mucus Crossmatch 07/27/20 07/27/20 07/27/20 18:22 19:02 20:56 WBC 11.2 H RBC 2.52 L Hgb 7.4 L Hct 22.8 L Neutrophils # 9.5 H Lymphocytes # ABG pH ABG pO2 ABG HCO3 ABG Total CO2 ABG O2 Saturation ABG Hematocrit ABG Sodium ABG Potassium ABG Ionized Calcium ABG Glucose Hemoglobin Sodium Chloride BUN Glucose POC Glucose (mg/dL) 141 H 138 H Calcium Magnesium AST Alkaline Phosphatase Total Protein Albumin HDL Cholesterol Arterial Blood Potassium Arterial Blood Glucose Ur Specific [place] Ur Leukocyte Esterase Urine WBC Ur Squamous Epith Cells Urine Mucus Crossmatch 07/27/20 07/27/20 07/27/20 22:07 22:54 23:56 WBC RBC Hgb Hct Neutrophils # Lymphocytes # ABG pH ABG pO2 ABG HCO3 ABG Total CO2 ABG O2 Saturation ABG Hematocrit ABG Sodium ABG Potassium ABG Ionized Calcium ABG Glucose Hemoglobin Sodium Chloride BUN Glucose POC Glucose (mg/dL) 129 H 112 H 139 H Calcium Magnesium AST Alkaline Phosphatase Total Protein Albumin HDL Cholesterol Arterial Blood Potassium Arterial Blood Glucose Ur Specific [place] Ur Leukocyte Esterase Urine WBC Ur Squamous Epith Cells Urine Mucus Crossmatch 07/28/20 07/28/20 07/28/20 01:40 03:45 04:50 WBC 10.7 H RBC 2.37 L Hgb 7.4 L Hct 21.6 L Neutrophils # 8.9 H Lymphocytes # 0.9 L ABG pH ABG pO2 ABG HCO3 ABG Total CO2 ABG O2 Saturation ABG Hematocrit ABG Sodium ABG Potassium ABG Ionized Calcium ABG Glucose Hemoglobin Sodium Chloride BUN Glucose POC Glucose (mg/dL) 150 H 123 H Calcium Magnesium AST Alkaline Phosphatase Total Protein Albumin HDL Cholesterol Arterial Blood Potassium Arterial Blood Glucose Ur Specific [place] Ur Leukocyte Esterase Urine WBC Ur Squamous Epith Cells Urine Mucus Crossmatch 07/28/20 07/28/20 07/28/20 04:50 04:50 04:52 WBC RBC Hgb Hct Neutrophils # Lymphocytes # ABG pH ABG pO2 ABG HCO3 26 H ABG Total CO2 27 H ABG O2 Saturation 98.3 H ABG Hematocrit ABG Sodium ABG Potassium ABG Ionized Calcium ABG Glucose Hemoglobin Sodium Chloride 108 H BUN Glucose 118 H POC Glucose (mg/dL) 125 H Calcium 8.2 L Magnesium AST 105 H Alkaline Phosphatase 36 L Total Protein 5.0 L Albumin 3.1 L HDL Cholesterol Arterial Blood Potassium Arterial Blood Glucose Ur Specific [place] Ur Leukocyte Esterase Urine WBC Ur Squamous Epith Cells Urine Mucus Crossmatch 07/28/20 07/28/20 07/28/20 06:40 08:18 09:51 WBC RBC Hgb Hct Neutrophils # Lymphocytes # ABG pH ABG pO2 ABG HCO3 ABG Total CO2 ABG O2 Saturation ABG Hematocrit ABG Sodium ABG Potassium ABG Ionized Calcium ABG Glucose Hemoglobin Sodium Chloride BUN Glucose POC Glucose (mg/dL) 128 H 118 H 102 H Calcium Magnesium AST Alkaline Phosphatase Total Protein Albumin HDL Cholesterol Arterial Blood Potassium Arterial Blood Glucose Ur Specific [place] Ur Leukocyte Esterase Urine WBC Ur Squamous Epith Cells Urine Mucus Crossmatch Assessment and Plan Assessment: This is a 75-year-old woman with multiple medical problems the underwent coronary artery bypass grafting yesterday (07/27/2020) for her severe triple coronary artery disease. Today while the sedation was off was noted that she had left-sided weakness is CT head was done and showed acute to subacute area infarct in the right cerebellar. Acute/subacute infarct over the right cerebellar due to cardioembolic (post CABG ) Seems patient has chronic right parietal ischemic stroke Left hemiplegia due to above Altered mental status due to multifactorial: Medication (on Precedex and received ativan in AM), component of metabolic hypotensive and elevated AST Triple vessel coronary artery disease, unstable angina status post CABG (07/27/20) Hypotensive shock on Levophed Anemia Mild Elevated AST Peripheral arterial disease with lower extremity stenting History of lung cancer status post right lower lobectomy Hyperlipidemia Hypertension Hyperlipidemia Previous tobacco use Plan: CT of the head (07/28/2020) which is poor as acute/subacute area of infarct in the right cerebellum along with probable area of chronic infarction in the right parietal region and age atrophy and small vessel disease of aging. She continues to be hypotensive requiring levophed. She's been having blood pre ssure as low as systolic in the 90s and diastolic between 40s to 50s. Patient has family history of premature coronary artery disease Carotid duplex on 07/23/2020 is reported as extensive plaque with no significant hemodynamic stenosis. Continue aspirin 325, Plavix 75 and Lipitor 80 mg. Lipid panel: Triglyceride 140, cholesterol 152, LDL of 85, HDL of 39. TSH is 1.66 which is normal. PT, OT are consulted Q1 hour neurochecks. I ordered CT angiography of the head and neck We'll get MRI the brain once the patient is stable. Please avoid any hypotensive episode and we'll defer the management to the primary as well as ICU team. Please avoid any sedation/narcotic that will affect the patient's mentation. Per the patient's son, Prior to the hospital visit she was awake, oriented X4 and walking without any deficits. Also per son she had no history of stroke. The plan was discussed with the patient son (Christian via phone), and patient's nurse. Thank you for the consultation Yamil Luong MD Neuro-Hospitalist Time with Patient: Greater than 30
[2020-07-28 12:55] LABS: Glucose,Whole Blood 112 mg/dL (75-99)
--- NOTE | 2020-07-28 13:25 | P.PN ---
Subjective Progress Note Date: 07/28/20 Principal diagnosis: Triple-vessel coronary artery disease. This is a 75-year-old female with history of multiple medical problems, she is primarily a patient of Dr. Derrick Neal. Known history of coronary artery disease, previous AR and stent placement, history of peripheral vessel occlusive disease, history of lung cancer and previous right lower lobectomy hypertension, COPD, and strong family history of premature coronary artery disease. Patient presented to [facility] with chest pain and shortness of breath, she was noted to have elevated BNP and elevated troponins. Patient was found to have abnormal EKG with nonspecific ST and T-wave abnormalities, arrangements were made to transfer the patient to [facility], patient underwent cardiac catheterization, and demonstrated proximal LAD stenosis 85%, mid LAD stenosis 90%, first obtuse marginal branch of the circumflex was 70-80% stenosis. Right coronary artery stenosis of 99%. And there was diffuse intimal disease prior to the bifurcation into the PDA and PLV. Considering these abnormal findings on cardiac catheterization, cardiothoracic surgery was consulted, and the patient is scheduled to undergo myocardial revascularization sometime either late this week or next week patient has been on Plavix. Pulmonary-bartlett, the patient has no cough no wheezing no fever no chills no hemoptysis and her FEV1 is basically unremarkable. Patient used to smoke, but has not smoked since she was diagnosed with lung cancer and had previous lobectomy back in 2011 Reevaluated today on 07/24/20, patient remains on the cardiac floor, patient is doing quite well, relatively asymptomatic, chest x-ray and CT of the chest was reviewed, patient did have minimal fibrotic changes in the right lower lobe, overall the patient is doing great, and I have already cleared the patient for surgery. My understanding from the patient that she is scheduled to have surgery early next week. May or may not be discharged home, and that is to be decided upon by cardiology and cardiothoracic surgery on the case. Pulmonary- bartlett, patient is cleared for surgery and she is also cleared to go home if felt appropriate by other consultants. Patient was reevaluated today on 07/27/2020, patient underwent myocardial revascularization today, postoperatively she was brought up to the ICU on mechanical ventilation. Patient is now on FiO2 of 60%, tidal volume is 450, assist control rate of 12, and PEEP of 5. ABG showed a pO2 of 136 pCO2 of 45, pH of 7.30, hence I have increased the rate to 16, cut down the FiO2 to 50%, and I increased the flow rates from 60-70 L/m. Patient is on pressors in the form of norepinephrine at 0.07 mcg/kg/m. Chest x-ray showed mostly postoperative changes, changes of CABG, endotracheal tube, nasogastric tube, PA catheter, mediastinal drains and chest tubes are in appropriate position. Patient is doing fairly well, sedated, in no distress Patient was reevaluated today on 07/28/2020, remains intubated and mechanically ventilated. Patient is now on assist control mode of mechanical ventilation with a rate of 16, volume is 450 FiO2 is 50% and PEEP of 5. Unfortunately the patient was noted to have poor movement of her left upper and left lower extremity last night, CT of the head last night showed acute/subacute area of infarction in the right cerebellum along with probable area of chronic infarction in the right parietal region I evaluated the patient this morning, seems to be extremely restless and agitated, seems to be neglecting the left side, and both eyes are deviated to the right and upwards. Patient seems to be moving her right side quite well, however the left side seems to be relatively weak although she was squeezing my hand with her left hand. And minimal movement noted in the left lower extremity. Patient is on Precedex, and seems to be agitated in spite of Precedex. Her ventilatory settings are reasonable, ABG is reasonable, patient is basically extubate overall, however her mental status is a bit concerning specially with her extreme agitation, keeps pulling and shaking the railing of the bed on the right side. Patient was given Ativan, and I have recommended increasing Precedex. She is not truly quite ready to be extubated today. Again my major concern is her mental status. And she is yet to be seen by neurology on consultation. Blood pressure is quite high, 160 systolic, norepinephrine was discontinued during my evaluation. She was on a very minimal dose of 0.1 mcg/kg/m of norepinephrine patient was also on milrinone. CBC is relatively normal hemoglobin is 7.4. ABG this morning showed a pO2 of 92 pCO2 of 38 pH of 7.45. This was on 50% FiO2. Electrolytes and renal profile are normal. Chest x-ray showed mostly postoperative changes of CABG Objective - Vital Signs Vital signs: Vital Signs Temp 99.3 F 07/28/20 12:00 Pulse 69 07/28/20 12:15 Resp 23 07/28/20 12:15 BP 141/65 07/28/20 12:15 Pulse Ox 99 07/28/20 12:15 Intake & Output 07/27/20 07/28/20 07/28/20 18:59 06:59 18:59 Intake Total 153 457.850 755.139 Output Total 2100 785 150 Balance -1947 -327.150 605.139 Weight 86.8 kg 86.8 kg Intake: IV 153 250 410 CO/CI 60 Lactated Ringers 1,000 ml 250 300 @ 50 mls/hr IV .Q20H INÉS Rx#:[id number] ceFAZolin 2 gm In Sodium 50 Chloride 0.9% 50 ml @ 100 mls/hr IVPB Q8H INÉS Rx#: [id number] Intake, IV Titration 207.850 345.139 Amount Dexmedetomidine/0.9% NaCl 81.928 (Pmx) 400 mcg In Empty Bag 1 bag @ Titrate IV . Q0M INÉS Rx#:[id number] Insulin Regular 100 unit 22.473 In Sodium Chloride 0.9% 100 ml @ Per Protocol IV .Q0M INÉS Rx#:[id number] Milrinone-D5w Pmx 20 mg 45.402 41.185 In Dextrose/Water 1 100ml .bag @ 0.2 MCG/KG/MIN 4. 962 mls/hr IV .[id number] INÉS Rx#:[id number] Norepinephrine 4 mg In 147.562 199.553 Sodium Chloride 0.9% 250 ml @ 0.05 MCG/KG/MIN 15. 754 mls/hr IV .Q16H8M INÉS Rx#:[id number] propofoL 1,000 mg In 14.886 Empty Bag 1 bag @ Titrate IV .Q0M PRN Rx#: [id number] Output: Chest Tube Drainage 100 20 Chest Tube Bilateral 60 20 Mediastinal Left Lateral Chest 40 0 Drainage 520 Left Pleural Chest Tube 260 Mediastinal chest tubes 260 Urine 600 165 130 Estimated Blood Loss 1500 Other: Voiding Method Indwelling Catheter Indwelling Catheter ABP, PAP, CO, CI - Last Documented Arterial Blood Pressure 155/58 Pulmonary Artery Pressure 40/20 Cardiac Output 4.3 Cardiac Index 2.2 - Exam GENERAL: Revealed a 75-year-old female sedated, on mechanical ventilation. Extremely agitated, in spite of Precedex. Keeps pulling and shaking the railing of the bed on the right side. Eyes are deviated to the right and upwards, seems to be neglecting the left side. Head: atraumatic normocephalic... HEENT: Right and upward deviation of both eyes, is noted, patient seems to have left-sided buck-neglect. NECK: Supple no neck masses no thyromegaly. HEART: Normal S1 and S2, no S3 gallop. Positive pericardial rub.Sternum stable. A/V epicardial pacemaker wires present, connected to generator, AAI mode with backup rate 50 bpm. Palpable peripheral pulses bilaterally. No edema present. No calf pain or tenderness noted. Heart hugger, antiembolism stockings, SCDs present. Right internal jugular Elgin/Cordis, right radial arterial line present. Last CO/CI 5.5/2.9 with SVR 1002, PA 43/17, CVP 11-13. Remains on IV Levophed for hypotension, low dose IV Primacor LUNGS: Symmetrical chest expansion, clear breath sound bilaterally. Mediastinal tube and pleural chest tubes are noted.Mediastinal chest tube present to continuous wall suction, 70 mL serosanguineous drainage overnight, 300 mL since surgery, no air leak present. Left pleural chest tube present to continuous wall suction, 50 mL serosanguineous drainage overnight, 300 mL since surgery, no air leak present. ABDOMEN: Soft nontender no megaly no rebound no guarding PSYCH: Normal mood affect and normal mental status examination. MUSCULOSKELETAL: Left-sided weakness. involving the left upper extremity and left lower extremity. NEUROLOGICAL: Patient is agitated, has left-sided buck-neglect, does not follow instructions, deviation of the eyes to the right and upwards noted. Seems to be moving the right side more so than the left side. Skin: No rashes Extremities: No clubbing edema or cyanosis - Labs CBC & Chem 7: 07/28/20 04:50 07/28/20 04:50 Labs: Abnormal Lab Results - Last 24 Hours (Table) 07/26/20 07/27/20 07/27/20 Range/Units 07:12 08:45 10:09 WBC (3.8-10.6) k/uL RBC (3.80-5.40) m/uL Hgb (11.4-16.0) gm/dL Hct (34.0-46.0) % Neutrophils # (1.3-7.7) k/uL Lymphocytes # (1.0-4.8) k/uL ABG pH (7.35-7.45) ABG pO2 425 H 127 H (83-108) mmHg ABG HCO3 26 H (21-25) mmol/L ABG Total CO2 27 H 27 H (19-24) mmol/L ABG O2 Saturation 100.0 H 99.1 H (94-97) % ABG Hematocrit 30 L 29 L (34.0-46.0) % ABG Sodium (135-146) mmol/L ABG Potassium (3.4-4.5) mmol/L ABG Ionized Calcium (4.5-5.3) mg/dL ABG Glucose 112 H (75-99) mg/dL Hemoglobin 9.9 L 9.4 L (11.4-16.0) gm/dL Chloride (98-107) mmol/L Glucose (74-99) mg/dL POC Glucose (mg/dL) (75-99) mg/dL Calcium (8.4-10.2) mg/dL Magnesium (1.6-2.3) mg/dL AST (14-36) U/L Alkaline Phosphatase (38-126) U/L Total Protein (6.3-8.2) g/dL Albumin (3.5-5.0) g/dL Arterial Blood Potassium (3.4-4.5) mmol/L Arterial Blood Glucose 112 H (75-99) mg/dL Crossmatch See Detail 07/27/20 07/27/20 07/27/20 Range/Units 11:03 11:31 12:13 WBC (3.8-10.6) k/uL RBC (3.80-5.40) m/uL Hgb (11.4-16.0) gm/dL Hct (34.0-46.0) % Neutrophils # (1.3-7.7) k/uL Lymphocytes # (1.0-4.8) k/uL ABG pH (7.35-7.45) ABG pO2 >420 H 367 H 374 H (83-108) mmHg ABG HCO3 (21-25) mmol/L ABG Total CO2 26 H 26 H 26 H (19-24) mmol/L ABG O2 Saturation 100.0 H 100.0 H 100.0 H (94-97) % ABG Hematocrit 19 L* 21 L 21 L (34.0-46.0) % ABG Sodium 134 L (135-146) mmol/L ABG Potassium 5.3 H 5.2 H 5.3 H (3.4-4.5) mmol/L ABG Ionized Calcium 4.1 L 4.3 L 4.4 L (4.5-5.3) mg/dL ABG Glucose 190 H 164 H 193 H (75-99) mg/dL Hemoglobin 6.3 L* 6.7 L* 6.8 L* (11.4-16.0) gm/dL Chloride (98-107) mmol/L Glucose (74-99) mg/dL POC Glucose (mg/dL) (75-99) mg/dL Calcium (8.4-10.2) mg/dL Magnesium (1.6-2.3) mg/dL AST (14-36) U/L Alkaline Phosphatase (38-126) U/L Total Protein (6.3-8.2) g/dL Albumin (3.5-5.0) g/dL Arterial Blood Potassium 5.3 H 5.2 H 5.3 H (3.4-4.5) mmol/L Arterial Blood Glucose 190 H 164 H 193 H (75-99) mg/dL Crossmatch 07/27/20 07/27/20 07/27/20 Range/Units 12:35 13:53 14:51 WBC (3.8-10.6) k/uL RBC (3.80-5.40) m/uL Hgb (11.4-16.0) gm/dL Hct (34.0-46.0) % Neutrophils # (1.3-7.7) k/uL Lymphocytes # (1.0-4.8) k/uL ABG pH (7.35-7.45) ABG pO2 >420 H 337 H (83-108) mmHg ABG HCO3 (21-25) mmol/L ABG Total CO2 26 H 26 H (19-24) mmol/L ABG O2 Saturation 100.0 H 100.0 H (94-97) % ABG Hematocrit 21 L 25 L (34.0-46.0) % ABG Sodium (135-146) mmol/L ABG Potassium 5.0 H (3.4-4.5) mmol/L ABG Ionized Calcium 4.3 L (4.5-5.3) mg/dL ABG Glucose 170 H 117 H (75-99) mg/dL Hemoglobin 6.7 L* 8.1 L (11.4-16.0) gm/dL Chloride (98-107) mmol/L Glucose (74-99) mg/dL POC Glucose (mg/dL) 130 H (75-99) mg/dL Calcium (8.4-10.2) mg/dL Magnesium (1.6-2.3) mg/dL AST (14-36) U/L Alkaline Phosphatase (38-126) U/L Total Protein (6.3-8.2) g/dL Albumin (3.5-5.0) g/dL Arterial Blood Potassium 5.0 H (3.4-4.5) mmol/L Arterial Blood Glucose 170 H 117 H (75-99) mg/dL Crossmatch 07/27/20 07/27/20 07/27/20 Range/Units 14:52 14:52 15:18 WBC 12.6 H (3.8-10.6) k/uL RBC 2.58 L (3.80-5.40) m/uL Hgb 7.7 L D (11.4-16.0) gm/dL Hct 23.7 L (34.0-46.0) % Neutrophils # 9.8 H (1.3-7.7) k/uL Lymphocytes # (1.0-4.8) k/uL ABG pH 7.30 L (7.35-7.45) ABG pO2 136 H (83-108) mmHg ABG HCO3 (21-25) mmol/L ABG Total CO2 (19-24) mmol/L ABG O2 Saturation 99.2 H (94-97) % ABG Hematocrit (34.0-46.0) % ABG Sodium (135-146) mmol/L ABG Potassium (3.4-4.5) mmol/L ABG Ionized Calcium (4.5-5.3) mg/dL ABG Glucose (75-99) mg/dL Hemoglobin (11.4-16.0) gm/dL Chloride 108 H (98-107) mmol/L Glucose 119 H (74-99) mg/dL POC Glucose (mg/dL) (75-99) mg/dL Calcium 8.1 L (8.4-10.2) mg/dL Magnesium 2.7 H (1.6-2.3) mg/dL AST (14-36) U/L Alkaline Phosphatase 36 L (38-126) U/L Total Protein 5.0 L (6.3-8.2) g/dL Albumin 3.3 L (3.5-5.0) g/dL Arterial Blood Potassium (3.4-4.5) mmol/L Arterial Blood Glucose (75-99) mg/dL Crossmatch 07/27/20 07/27/20 07/27/20 Range/Units 17:19 18:22 19:02 WBC 11.2 H (3.8-10.6) k/uL RBC 2.52 L (3.80-5.40) m/uL Hgb 7.4 L (11.4-16.0) gm/dL Hct 22.8 L (34.0-46.0) % Neutrophils # 9.5 H (1.3-7.7) k/uL Lymphocytes # (1.0-4.8) k/uL ABG pH (7.35-7.45) ABG pO2 (83-108) mmHg ABG HCO3 (21-25) mmol/L ABG Total CO2 (19-24) mmol/L ABG O2 Saturation (94-97) % ABG Hematocrit (34.0-46.0) % ABG Sodium (135-146) mmol/L ABG Potassium (3.4-4.5) mmol/L ABG Ionized Calcium (4.5-5.3) mg/dL ABG Glucose (75-99) mg/dL Hemoglobin (11.4-16.0) gm/dL Chloride (98-107) mmol/L Glucose (74-99) mg/dL POC Glucose (mg/dL) 134 H 141 H (75-99) mg/dL Calcium (8.4-10.2) mg/dL Magnesium (1.6-2.3) mg/dL AST (14-36) U/L Alkaline Phosphatase (38-126) U/L Total Protein (6.3-8.2) g/dL Albumin (3.5-5.0) g/dL Arterial Blood Potassium (3.4-4.5) mmol/L Arterial Blood Glucose (75-99) mg/dL Crossmatch 07/27/20 07/27/20 07/27/20 Range/Units 20:56 22:07 22:54 WBC (3.8-10.6) k/uL RBC (3.80-5.40) m/uL Hgb (11.4-16.0) gm/dL Hct (34.0-46.0) % Neutrophils # (1.3-7.7) k/uL Lymphocytes # (1.0-4.8) k/uL ABG pH (7.35-7.45) ABG pO2 (83-108) mmHg ABG HCO3 (21-25) mmol/L ABG Total CO2 (19-24) mmol/L ABG O2 Saturation (94-97) % ABG Hematocrit (34.0-46.0) % ABG Sodium (135-146) mmol/L ABG Potassium (3.4-4.5) mmol/L ABG Ionized Calcium (4.5-5.3) mg/dL ABG Glucose (75-99) mg/dL Hemoglobin (11.4-16.0) gm/dL Chloride (98-107) mmol/L Glucose (74-99) mg/dL POC Glucose (mg/dL) 138 H 129 H 112 H (75-99) mg/dL Calcium (8.4-10.2) mg/dL Magnesium (1.6-2.3) mg/dL AST (14-36) U/L Alkaline Phosphatase (38-126) U/L Total Protein (6.3-8.2) g/dL Albumin (3.5-5.0) g/dL Arterial Blood Potassium (3.4-4.5) mmol/L Arterial Blood Glucose (75-99) mg/dL Crossmatch 07/27/20 07/28/20 07/28/20 Range/Units 23:56 01:40 03:45 WBC (3.8-10.6) k/uL RBC (3.80-5.40) m/uL Hgb (11.4-16.0) gm/dL Hct (34.0-46.0) % Neutrophils # (1.3-7.7) k/uL Lymphocytes # (1.0-4.8) k/uL ABG pH (7.35-7.45) ABG pO2 (83-108) mmHg ABG HCO3 (21-25) mmol/L ABG Total CO2 (19-24) mmol/L ABG O2 Saturation (94-97) % ABG Hematocrit (34.0-46.0) % ABG Sodium (135-146) mmol/L ABG Potassium (3.4-4.5) mmol/L ABG Ionized Calcium (4.5-5.3) mg/dL ABG Glucose (75-99) mg/dL Hemoglobin (11.4-16.0) gm/dL Chloride (98-107) mmol/L Glucose (74-99) mg/dL POC Glucose (mg/dL) 139 H 150 H 123 H (75-99) mg/dL Calcium (8.4-10.2) mg/dL Magnesium (1.6-2.3) mg/dL AST (14-36) U/L Alkaline Phosphatase (38-126) U/L Total Protein (6.3-8.2) g/dL Albumin (3.5-5.0) g/dL Arterial Blood Potassium (3.4-4.5) mmol/L Arterial Blood Glucose (75-99) mg/dL Crossmatch 07/28/20 07/28/20 07/28/20 Range/Units 04:50 04:50 04:50 WBC 10.7 H (3.8-10.6) k/uL RBC 2.37 L (3.80-5.40) m/uL Hgb 7.4 L (11.4-16.0) gm/dL Hct 21.6 L (34.0-46.0) % Neutrophils # 8.9 H (1.3-7.7) k/uL Lymphocytes # 0.9 L (1.0-4.8) k/uL ABG pH (7.35-7.45) ABG pO2 (83-108) mmHg ABG HCO3 26 H (21-25) mmol/L ABG Total CO2 27 H (19-24) mmol/L ABG O2 Saturation 98.3 H (94-97) % ABG Hematocrit (34.0-46.0) % ABG Sodium (135-146) mmol/L ABG Potassium (3.4-4.5) mmol/L ABG Ionized Calcium (4.5-5.3) mg/dL ABG Glucose (75-99) mg/dL Hemoglobin (11.4-16.0) gm/dL Chloride 108 H (98-107) mmol/L Glucose 118 H (74-99) mg/dL POC Glucose (mg/dL) (75-99) mg/dL Calcium 8.2 L (8.4-10.2) mg/dL Magnesium (1.6-2.3) mg/dL AST 105 H (14-36) U/L Alkaline Phosphatase 36 L (38-126) U/L Total Protein 5.0 L (6.3-8.2) g/dL Albumin 3.1 L (3.5-5.0) g/dL Arterial Blood Potassium (3.4-4.5) mmol/L Arterial Blood Glucose (75-99) mg/dL Crossmatch 07/28/20 07/28/20 07/28/20 Range/Units 04:52 06:40 08:18 WBC (3.8-10.6) k/uL RBC (3.80-5.40) m/uL Hgb (11.4-16.0) gm/dL Hct (34.0-46.0) % Neutrophils # (1.3-7.7) k/uL Lymphocytes # (1.0-4.8) k/uL ABG pH (7.35-7.45) ABG pO2 (83-108) mmHg ABG HCO3 (21-25) mmol/L ABG Total CO2 (19-24) mmol/L ABG O2 Saturation (94-97) % ABG Hematocrit (34.0-46.0) % ABG Sodium (135-146) mmol/L ABG Potassium (3.4-4.5) mmol/L ABG Ionized Calcium (4.5-5.3) mg/dL ABG Glucose (75-99) mg/dL Hemoglobin (11.4-16.0) gm/dL Chloride (98-107) mmol/L Glucose (74-99) mg/dL POC Glucose (mg/dL) 125 H 128 H 118 H (75-99) mg/dL Calcium (8.4-10.2) mg/dL Magnesium (1.6-2.3) mg/dL AST (14-36) U/L Alkaline Phosphatase (38-126) U/L Total Protein (6.3-8.2) g/dL Albumin (3.5-5.0) g/dL Arterial Blood Potassium (3.4-4.5) mmol/L Arterial Blood Glucose (75-99) mg/dL Crossmatch 07/28/20 07/28/20 07/28/20 Range/Units 09:51 11:10 12:54 WBC (3.8-10.6) k/uL RBC (3.80-5.40) m/uL Hgb (11.4-16.0) gm/dL Hct (34.0-46.0) % Neutrophils # (1.3-7.7) k/uL Lymphocytes # (1.0-4.8) k/uL ABG pH (7.35-7.45) ABG pO2 (83-108) mmHg ABG HCO3 (21-25) mmol/L ABG Total CO2 (19-24) mmol/L ABG O2 Saturation (94-97) % ABG Hematocrit (34.0-46.0) % ABG Sodium (135-146) mmol/L ABG Potassium (3.4-4.5) mmol/L ABG Ionized Calcium (4.5-5.3) mg/dL ABG Glucose (75-99) mg/dL Hemoglobin (11.4-16.0) gm/dL Chloride (98-107) mmol/L Glucose (74-99) mg/dL POC Glucose (mg/dL) 102 H 119 H 112 H (75-99) mg/dL Calcium (8.4-10.2) mg/dL Magnesium (1.6-2.3) mg/dL AST (14-36) U/L Alkaline Phosphatase (38-126) U/L Total Protein (6.3-8.2) g/dL Albumin (3.5-5.0) g/dL Arterial Blood Potassium (3.4-4.5) mmol/L Arterial Blood Glucose (75-99) mg/dL Crossmatch Assessment and Plan Assessment: Impression:Triple-vessel coronary artery disease , status post CABG postoperative day #1 Postoperative acute/subacute right cerebellar infarct. Left sided hemiparesis due to above. Remote History of non-small cell lung cancer and previous lobectomy. History of smoking/ex-smoker. Minimal COPD based on her PFT. Family history of premature coronary artery disease. Hypertension. Peripheral vessel occlusive disease Degenerative joint disease Dyslipidemia. Chronic insomnia. Recommendation: Would hold on extubating the patient today mostly because of the mental status issues and extreme agitation. Awaiting further input from neurology. Continue Precedex, titrate accordingly and keep the patient called. Close monitoring of blood pressure and keep it relatively elevated with mean arterial pressure of 65 or higher. Continue same ventilator settings. Continue aspirin statins and Plavix and beta blockers. Address enteral feeding if the patient is not extubated today. Discontinue unnecessary catheters or tubes We'll continue to follow. Critical care time is over 30 minutes Time with Patient: Greater than 30
--- NOTE | 2020-07-28 15:16 | CT ---
EXAMINATION TYPE: CT angio head neck DATE OF EXAM: 07/28/2020 COMPARISON: None HISTORY: stroke CT DLP: 607.9 mGycm Automated exposure control for dose reduction was used. CONTRAST: Performed with IV Contrast, patient injected with 65 mL of Isovue 370. Images obtained from the aortic arch to the vertex of the brain with IV contrast and 3-D post process ed images. Thoracic aorta shows moderate atheromatous change. There is endotracheal tube. There is arterial flow in both subclavian arteries. There is arterial flow in the common internal and external carotid elias chance bilaterally. There is extensive plaque formation at the carotid artery bifurcations. There is es timated more than 75% stenosis proximal left internal carotid artery. There is tortuous proximal righ t internal carotid artery with approximate 75% stenosis at the origin. There is bilateral arterial flow in the vertebral arteries. There is no evidence of carotid or verteb ral artery aneurysm or dissection. There is severe stenosis at the origins of both external carotid a rteries of more than 75%. There is arterial flow in the vertebrobasilar artery system. There is arterial flow in the anterior m iddle and posterior cerebral arteries bilaterally. I see no evidence of intracranial aneurysm or neov ascularity. The intracranial internal carotid arteries appear to have some significant wall calcifica tion and probably stenosis of the 50%. There is normal contrast opacification of the venous sinuses. There is no mass effect. IMPRESSION: Significant plaque formation at the carotid artery bifurcations and more than 75% stenosis at the waqar gins of the internal and external carotid arteries bilaterally. Significant calcification and plaque in the intracranial internal carotid arteries and probably more than 50% stenosis.
[2020-07-28 15:31] LABS: Glucose,Whole Blood 139 mg/dL (75-99)
[2020-07-28 17:04] LABS: Glucose,Whole Blood 135 mg/dL (75-99)
--- NOTE | 2020-07-28 18:31 | P.PN ---
Progress Note - Text Progress Note Date: 07/28/20 Chief Complaint: Chest pain History of presenting complaint: This is a pleasant 75-year-old patient of Dr. Derrick Neal. Chronic stable medical conditions include COPD, hyperlipidemia, hypertension, ostial arthritis, lung cancer 6 years ago, peripheral artery disease, coronary artery stent, peripheral stents, anxiety depression. Patient presented after she was having central chest pressure at home then went to both the shoulder blades for the arms. Patient became nauseated. No dizziness or lightheadedness. She shortness of breath. No perspiration. Symptoms most lost about 40 minutes she was taken to [facility]. She was similar episode about 2 weeks ago. Transferred down here. Has some lower extremity edema Admitted with unstable angina. underwent cardiac catheterization. Found to have severe triple-vessel coronary artery disease. July 27-underwent coronary bypass 3, ligation of left atrial appendage. Today-ICU- ventilator: FiO2 50 with PEEP of 5. Has 2 mediastinal and 1 left pleural chest tube. . Intubated. Drips include norepinephrine, Precedex, insulin. Oral G-tube. Review of systems: Patient intubated Active Medications Hydrocodone Bitart/Acetaminophen (Hydrocodone/Apap 5-325mg 1 Each Tab) 2 each PO Q4HR PRN PRN Reason: Severe Pain Last Admin: 07/28/20 17:11 Dose: 2 each Documented by: Hydrocodone Bitart/Acetaminophen (Hydrocodone/Apap 5-325mg 1 Each Tab) 1 each PO Q4HR PRN PRN Reason: Moderate Pain Albuterol/Ipratropium (Ipratropium-Albuterol 3 Ml Neb) 3 ml INHALATION RT-Q2H PRN PRN Reason: Shortness Of Breath Or Wheezing Albuterol/Ipratropium (Ipratropium-Albuterol 3 Ml Neb) 3 ml INHALATION RT-QID [facility] Last Admin: 07/28/20 16:51 Dose: 3 ml Documented by: Aspirin (Aspirin 325 Mg Tab) 325 mg PO DAILY [facility] Last Admin: 07/28/20 08:50 Dose: 325 mg Documented by: Atorvastatin Calcium (Atorvastatin 80 Mg Tab) 80 mg PO HS [facility] Last Admin: 07/27/20 23:49 Dose: 80 mg Documented by: Benzocaine/Menthol (Benzocaine/Menthol Lozeng 1 Each Lozenge) 1 each MUCOUS MEM Q2H PRN PRN Reason: Sore Throat Bisacodyl (Bisacodyl 10 Mg Supp) 10 mg RECTAL DAILY PRN PRN Reason: Constipation Clopidogrel Bisulfate (Clopidogrel 75 Mg Tab) 75 mg PO DAILY [facility] Last Admin: 07/28/20 08:50 Dose: 75 mg Documented by: Ezetimibe (Ezetimibe 10 Mg Tab) 10 mg PO HS [facility] Last Admin: 07/27/20 23:49 Dose: Not Given Documented by: Heparin Sodium (Porcine) (Heparin Sodium,Porcine 5,000 Unit/Ml 1 Ml Vial) 5,000 unit SQ Q8HR [facility] Last Admin: 07/28/20 16:05 Dose: 5,000 unit Documented by: Hydralazine HCl (Hydralazine Hcl 20 Mg/Ml 1 Ml Vial) 10 mg IVP Q1H PRN PRN Reason: Blood Pressure - High Milrinone Lactate/Dextrose 20 (mg/ IV Solution) 100 mls @ 4.962 mls/hr IV .[id number] [facility] Last Admin: 07/28/20 12:33 Dose: Not Given Documented by: Norepinephrine Bitartrate 4 mg (/ Sodium Chloride) 254 mls @ 15.754 mls/hr IV .Q16H8M [facility]; Protocol Last Admin: 07/28/20 15:27 Dose: 0.04 mcg/kg/min, 12.603 mls/hr Documented by: Amiodarone HCl 150 mg/ (Dextrose/Water) 103 mls @ 618 mls/hr IV .Q10M PRN; Protocol PRN Reason: A.FIB/FLUTTER Amiodarone HCl 360 mg/ (Dextrose/Water) 207.2 mls @ 34.533 mls/hr IV .Q6H PRN; Protocol PRN Reason: A.FIB/FLUTTER Amiodarone HCl 450 mg/ (Dextrose/Water) 250 mls @ 16.667 mls/hr IV .Q15H PRN; Protocol PRN Reason: A.FIB/FLUTTER Albumin Human 250 ml/ IV (Solution) 250 mls @ 250 mls/hr IVPB Q1HR PRN PRN Reason: For Volume Stop: 07/29/20 14:16 Clevidipine 25 mg/ IV Solution 50 mls @ 2 mls/hr IV .Q24H [facility]; Protocol Last Admin: 07/28/20 04:42 Dose: Not Given Documented by: Lactated Ringer's (Lactated Ringers) 1,000 mls @ 50 mls/hr IV .Q20H [facility] Last Admin: 07/28/20 08:53 Dose: 50 mls/hr Documented by: Calcium Gluconate 2 gm/ Sodium (Chloride) 120 mls @ 100 mls/hr IVPB ONCE PRN PRN Reason: Ionized Calcium less than 4.4 Stop: 08/06/20 14:16 Insulin Human Regular 100 unit (/ Sodium Chloride) 101 mls @ 0 mls/hr IV .Q0M [facility]; Protocol Last Titration: 07/28/20 15:30 Dose: 0.5 units/hr, 0.505 mls/hr Documented by: Ketorolac Tromethamine (Ketorolac 15 Mg/Ml 1 Ml Vial) 15 mg IVP Q6HR [facility] Stop: 07/30/20 16:21 Last Admin: 07/28/20 13:20 Dose: 15 mg Documented by: Magnesium Hydroxide (Magnesium Hydroxide 2,400 Mg/10 Ml Cup) 2,400 mg PO BID PRN PRN Reason: Constipation Metoclopramide HCl (Metoclopramide 5 Mg/Ml 2 Ml Vial) 10 mg IVP Q4H PRN PRN Reason: Nausea And Vomiting Metoprolol Tartrate (Metoprolol Tartrate 12.5 Mg Tab) 12.5 mg PO BID [facility] Last Admin: 07/28/20 08:50 Dose: 12.5 mg Documented by: Miscellaneous Information (Potassium Replacement Protocol 1 Each Misc) 1 each MISCELLANE DAILY PRN; Protocol PRN Reason: Per Protocol Miscellaneous Information (Magnesium Replacement Protocol 1 Each Misc) 1 each MISCELLANE DAILY PRN; Protocol PRN Reason: Per Protocol Miscellaneous Information (Phosphorus Replacement Protoco 1 Each Misc) 1 each MISCELLANE DAILY PRN; Protocol PRN Reason: Per Protocol Ondansetron HCl (Ondansetron 4 Mg/2 Ml Vial) 4 mg IVP Q6HR PRN PRN Reason: Nausea And Vomiting Pantoprazole Sodium (Pantoprazole 40 Mg/10 Ml Vial) 40 mg IVP DAILY [facility] Last Admin: 07/28/20 08:51 Dose: 40 mg Documented by: Senna/Docusate Sodium (Sennosides-Docusate Sodium 1 Each Tab) 2 each PO HS [facility] Sertraline HCl (Sertraline 100 Mg Tab) 100 mg PO DAILY [facility] Last Admin: 07/28/20 08:51 Dose: 100 mg Documented by: Sodium Chloride (Sodium Chloride 0.9% Flush 10 Ml Syringe) 10 ml IV BID [facility] Last Admin: 07/28/20 08:51 Dose: 10 ml Documented by: Past medical history to include: CHF, COPD, hyperlipidemia, hypertension, coronary artery disease with stent, osteoporosis, lung cancer 6 years ago, peripheral arterial disease, anxiety depression Social history: Lives with her son. Smoked a pack a day since the teenage years. Stop in 2011. Some alcohol in the past Physical examination: VITAL SIGNS: 99.3, 66, 16, 1 49 x 57, 98% on the ventilator GENERAL: Laying in bed, intubated EYES: Pupils equal. Conjunctiva normal. HEENT: External appearance of nose and ears normal, oral cavity endotracheal tube. NECK: JVD unable to assess; masses not palpable. HEART: First and second heart sounds are normal; no edema. LUNGS: Respiratory rate increased; decreased breath sounds. Chest: 2 mediastinal and one left pleural chest tube ABDOMEN: Soft, nontender, liver spleen not palpable, no masses palpable. Da Silva catheter PSYCH: Patient sedated MUSCULOSKELETAL: Evidence of OA Investigations: July 28: White count 10.7 hemoglobin 7.4 platelets 195 potassium 3.9 creatinine 0.58 July 27: Incontinent 12.6 hemoglobin 7.7 platelets 199 potassium 4.5 creatinine 0.56 albumin 3.3 July 22: Potassium 4.1 creatinine 0.97 proBNP 1270 Cardiac ufashjsejaxlsjc-[id number] disease 2-D echocardiogram-moderate concentric LVH, EF 50-55% hypokinetic galicia Troponin I 0.018, 0.012 Coronavirus [PCR]-not detected EKG tracing personally reviewed by me-normal sinus rhythm, PVC Assessment and plan: -Coronary artery bypass [id number] July 27. On Plavix, Lopressor, Zetia -Acute postprocedure blood loss anemia, as expected from surgery -Unstable angina, POA -Triple-vessel coronary artery disease on cardiac catheterization. Plavix, Lopressor, Zetia -Acute on chronic congestive heart diastolic dysfunction EF 50-55% received IV Lasix. Stabilized. Follow clinically -COPD in a previous smoker, on DuoNeb -Hyperlipidemia, continue Lipitor -Essential hypertension, follow closely -Primary osteoarthritis, take Tylenol when necessary -History of lung cancer 6 years ago -Peripheral arterial disease with stenting, on aspirin and Plavix -Anxiety depression otherwise specified-on Zoloft -Chronic insomnia continue with melatonin Patient is in the ICU. Continue with current medications
[2020-07-28 18:57] LABS: Glucose,Whole Blood 134 mg/dL (75-99)
[2020-07-28] MEDS: EZETIMIBE 10 MG TAB PO SCH (22:10)
[2020-07-28] MEDS: SENNOSIDES-DOCUSATE SODIUM 1 EACH TAB PO SCH (22:10)
[2020-07-28] MEDS: ATORVASTATIN 80 MG TAB PO SCH (22:11)
[2020-07-28 23:44] LABS: Glucose,Whole Blood 132 mg/dL (75-99)
[2020-07-29 00:54] LABS: Glucose,Whole Blood 130 mg/dL (75-99)
[2020-07-29 02:48] LABS: Glucose,Whole Blood 122 mg/dL (75-99)
[2020-07-29 05:27] LABS: ABG Base Excess 3.6 mmol/L; ABG HCO3 27 mmol/L (21-25); ABG PCO2 36 mmHg (35-45); ABG PH 7.49 (7.35-7.45); ABG PO2 82 mmHg (83-108); ABG TCO2 28 mmol/L (19-24); Allen Test Performed? Yes
[2020-07-29 05:37] LABS: Glucose,Whole Blood 112 mg/dL (75-99)
[2020-07-29 06:13] LABS: Basophils % (A) 0 %; Eosinophils # (A) 0.1 k/uL (0-0.7); Eosinophils % (A) 0 %; HCT 21.2 % (34.0-46.0); Lymphocytes # (A) 1.6 k/uL (1.0-4.8); Lymphocytes % (A) 14 %; MCH 29.6 pg (25.0-35.0); MCHC 32.5 g/dL (31.0-37.0); MCV 91.1 fL (80.0-100.0); Mean Platelet Volume 8.1; Monocytes # (A) 0.8 k/uL (0-1.0); Monocytes % (A) 7 %; Neutrophils # (A) 8.9 k/uL (1.3-7.7); Neutrophils % (A) 77 %; Platelet Count 210 k/uL (150-450); RBC 2.33 m/uL (3.80-5.40); RDW 13.4 % (11.5-15.5); WBC 11.5 k/uL (3.8-10.6)
[2020-07-29 06:16] LABS: HGB 6.9 gm/dL (11.4-16.0)
[2020-07-29 06:21] LABS: ALT 26 U/L (4-34); AST 115 U/L (14-36); African American GFR (CKD) >90 (>60 ml/min/1.73 sqM); Albumin 2.9 g/dL (3.5-5.0); Alkaline Phosphatase 40 U/L (38-126); Anion Gap 4 mmol/L; Blood Urea Nitrogen 25 mg/dL (7-17); Calcium 8.3 mg/dL (8.4-10.2); Carbon Dioxide 28 mmol/L (22-30); Chloride 107 mmol/L (98-107); Glucose 114 mg/dL (74-99); Non-African American GFR(CKD) 87 (>60 ml/min/1.73 sqM); Potassium 4.4 mmol/L (3.5-5.1); Sodium 139 mmol/L (137-145); Total Bilirubin 0.4 mg/dL (0.2-1.3); Total Protein 4.8 g/dL (6.3-8.2)
[2020-07-29] MEDS: LACTATED RINGERS 1,000 ML IV SCH (06:21)
[2020-07-29] MEDS: KETOROLAC 15 MG/ML 1 ML VIAL IVP SCH ×3 (06:21→17:28)
[2020-07-29 06:52] LABS: Glucose,Whole Blood 107 mg/dL (75-99)
--- NOTE | 2020-07-29 07:11 | XR ---
EXAMINATION TYPE: XR chest 1V portable DATE OF EXAM: 07/29/2020 HISTORY: Post Op CABG COMPARISON: 07/28/2020 TECHNIQUE: Single view of the chest is submitted. FINDINGS: Endotracheal tube, NG tube, SG catheter, mediastinal drains and chest tubes are appropriately placed. Post operative changes of CABG. No sizeable pneumothorax. Scattered Pleural-parenchymal opacities may reflect atelectasis and/or infiltrate. Limited inspiratio n. The heart is enlarged. IMPRESSION: 1. Scattered Pleural-parenchymal opacities may reflect atelectasis and/or infiltrate. Limited inspir ation.
--- NOTE | 2020-07-29 07:24 | P.PN ---
Subjective Progress Note Date: 07/29/20 Triple-vessel coronary artery disease. This is a 75-year-old female with history of multiple medical problems, she is primarily a patient of Dr. Derrick Neal. Known history of coronary artery disease, previous [place] and stent placement, history of peripheral vessel occlusive disease, history of lung cancer and previous right lower lobectomy hypertension, COPD, and strong family history of premature coronary artery disease. Patient presented to [facility] with chest pain and shortness of breath, she was noted to have elevated BNP and elevated troponins. Patient was found to have abnormal EKG with nonspecific ST and T-wave abnormalities, arrangements were made to transfer the patient to [facility], patient underwent cardiac catheterization, and demonstrated proximal LAD stenosis 85%, mid LAD stenosis 90%, first obtuse marginal branch of the circumflex was 70-80% stenosis . Right coronary artery stenosis of 99%. And there was diffuse intimal disease prior to the bifurcation into the PDA and PLV. Considering these abnormal findings on cardiac catheterization, cardiothoracic surgery was consulted, and the patient is scheduled to undergo myocardial revascularization sometime either late this week or next week patient has been on Plavix. Pulmonary-bartlett, the patient has no cough no wheezing no fever no chills no hemoptysis and her FEV1 is basically unremarkable. Patient used to smoke, but has not smoked since she was diagnosed with lung cancer and had previous lobectomy back in 2011 Reevaluated today on 07/24/20, patient remains on the cardiac floor, patient is doing quite well, relatively asymptomatic, chest x-ray and CT of the chest was reviewed, patient did have minimal fibrotic changes in the right lower lobe, overall the patient is doing great, and I have already cleared the patient for surgery. My understanding from the patient that she is scheduled to have surgery early next week. May or may not be discharged home, and that is to be decided upon by cardiology and cardiothoracic surgery on the case. Pulmonary- bartlett, patient is cleared for surgery and she is also cleared to go home if felt appropriate by other consultants. Patient was reevaluated today on 07/27/2020, patient underwent myocardial revascularization today, postoperatively she was brought up to the ICU on mechanical ventilation. Patient is now on FiO2 of 60%, tidal volume is 450, assist control rate of 12, and PEEP of 5. ABG showed a pO2 of 136 pCO2 of 45, pH of 7.30, hence I have increased the rate to 16, cut down the FiO2 to 50%, and I increased the flow rates from 60-70 L/m. Patient is on pressors in the form of norepinephrine at 0.07 mcg/kg/m. Chest x-ray showed mostly postoperative changes, changes of CABG, endotracheal tube, nasogastric tube, PA catheter, mediastinal drains and chest tubes are in appropriate position. Patient is doing fairly well, sedated, in no distress Patient was reevaluated today on 07/28/2020, remains intubated and mechanically v entilated. Patient is now on assist control mode of mechanical ventilation with a rate of 16, volume is 450 FiO2 is 50% and PEEP of 5. Unfortunately the patient was noted to have poor movement of her left upper and left lower extremity last night, CT of the head last night showed acute/subacute area of infarction in the right cerebellum along with probable area of chronic infarction in the right parietal region I evaluated the patient this morning, seems to be extremely restless and agitated, seems to be neglecting the left side, and both eyes are deviated to the right and upwards. Patient seems to be moving her right side quite well, however the left side seems to be relatively weak although she was squeezing my hand with her left hand. And minimal movement noted in the left lower extremity. Patient is on Precedex, and seems to be agitated in spite of Precedex. Her ventilatory settings are reasonable, ABG is reasonable, patient is basically extubate overall, however her mental s tatus is a bit concerning specially with her extreme agitation, keeps pulling and shaking the railing of the bed on the right side. Patient was given Ativan, and I have recommended increasing Precedex. She is not truly quite ready to be extubated today. Again my major concern is her mental status. And she is yet to be seen by neurology on consultation. Blood pressure is quite high, 160 systolic, norepinephrine was discontinued during my evaluation. She was on a very minimal dose of 0.1 mcg/kg/m of norepinephrine patient was also on milrinone. CBC is relatively normal hemoglobin is 7.4. ABG this morning showed a pO2 of 92 pCO2 of 38 pH of 7.45. This was on 50% FiO2. Electrolytes and renal profile are normal. Chest x-ray showed mostly postoperative changes of CABG 07/29/2020, I'm seeing the patient for a follow-up in the intensive care unit. This morning the patient is heavily sedated with propofol and she is calm and comfortable. Unfortunately with that, neurologic examination is not possible. I would suggest gradually cutting down the propofol and assess her neuro status and if needed utilize Precedex as an alternative sedative drip. Meanwhile, the patient remains essentially with enema to severe with a low dose of norepinephrine infusion running at 0.06 mcg/kg per minute. She has an adequate urine output. Cardiac rhythm is sinus. She has a left pleural and mediastinal chest tubes and output from those are in order of minimal, less than 100 over the past 24 hours. The chest x-ray showing cardiomegaly. There is some kyphoscoliosis of the chest. Chest tubes are in good location. ET tube is in good location. Atelectatic changes and some mild four-vessel congestion. Meanwhile, the patient's vent settings include an assist-control mode at the rate of 16 with a tidal volume of 450 and FiO2 of 40% with a PEEP of 5. The blood gases from this morning showed a pH of 7.49 with a pCO2 of 36 and pO2 of 82. On today's blood work, the patient's hemoglobin is down to 6.9 from 7.4. Platelets is at 210. 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 Intracranial cerebral arteries were essentially patent with nothing significantly stenotic. During our limited neurologic evaluation, the patient did not do mistreat any withdrawal with to painful stimulation. No Babinski. No clonus. Nevertheless, I was told by the nursing staff that she was able to move her right side yesterday and her left side once off sedation. Pupils are equal and reactive to light and order of 3 mm. No preferential gaze on today's evaluation. A sedation holiday will be given. She is on enteral nutrition. No other drips. No seizure activity. Neurologist on the case. She is on aspirin, Plavix, and she also on metoprolol 12.5 mg by mouth twice a day. She is also on high-dose statins. Objective - Vital Signs Vital signs: Vital Signs Temp 97.1 F L 07/29/20 04:00 Pulse 74 07/28/20 21:25 Resp 19 07/29/20 04:00 BP 100/52 07/29/20 04:00 Pulse Ox 97 07/29/20 04:00 Intake & Output 07/28/20 07/29/20 07/29/20 18:59 06:59 18:59 Intake Total 1089.964 457.07 Output Total 480 465 Balance 609.964 -7.93 Weight 86.8 kg Intake: IV 690 450 CO/CI 60 Lactated Ringers 1,000 ml 580 450 @ 50 mls/hr IV .Q20H [facility] Rx#:[id number] ceFAZolin 2 gm In Sodium 50 Chloride 0.9% 50 ml @ 100 mls/hr IVPB Q8H [facility] Rx#: [id number] Intake, IV Titration 399.964 7.07 Amount Dexmedetomidine/0.9% NaCl 81.928 (Pmx) 400 mcg In Empty Bag 1 bag @ Titrate IV . Q0M [facility] Rx#:[id number] Insulin Regular 100 unit 22.473 7.07 In Sodium Chloride 0.9% 100 ml @ Per Protocol IV .Q0M [facility] Rx#:[id number] Milrinone-D5w Pmx 20 mg 41.185 In Dextrose/Water 1 100ml .bag @ 0.2 MCG/KG/MIN 4. 962 mls/hr IV .[id number] [facility] Rx#:[id number] Norepinephrine 4 mg In 254.378 Sodium Chloride 0.9% 250 ml @ 0.05 MCG/KG/MIN 15. 754 mls/hr IV .Q16H8M [facility] Rx#:[id number] Output: Chest Tube Drainage 110 Chest Tube Bilateral 70 Mediastinal Left Lateral Chest 40 Urine 370 465 Other: Voiding Method Indwelling Catheter Indwelling Catheter ABP, PAP, CO, CI - Last Documented Arterial Blood Pressure 104/43 Pulmonary Artery Pressure 40/20 Cardiac Output 4.3 Cardiac Index 2.2 - Exam GENERAL: Revealed a 75-year-old female sedated, on mechanical ventilation. Very well sedated this morning on propofol running at 30 g Head: atraumatic normocephalic... HEENT: Pupils are equal and reactive to light and they're measuring around 3-4 mm in size. No preferential gaze. No nystagmus. NECK: Supple no neck masses no thyromegaly. HEART: Normal S1 and S2, no S3 gallop. Positive pericardial rub.Sternum stable. A/V epicardial pacemaker wires present, connected to generator, AAI mode with backup rate 50 bpm. Palpable peripheral pulses bilaterally. No edema present. No calf pain or tenderness noted. Heart hugger, antiembolism stockings, SCDs present. Right internal jugular [place]/Cordis, right radial arterial line present. LUNGS: Symmetrical chest expansion, clear breath sound bilaterally. Mediastinal tube and pleural chest tubes are noted.Mediastinal chest tube present to continuous wall suction, minimal serosanguineous drainage overnight, . Left pleural chest tube present to continuous wall suction, min serosanguineous drainage overnight, no air leak present. ABDOMEN: Soft nontender no megaly no rebound no guarding NEUROLOGICAL: Patient is sedated heavily and the patient's neurologic function cannot be assessed and the patient will be given a sedation holiday. She has a positive cough Keflex and she has a positive gag reflex and there is no facial a symmetry. Motor function essentially function cannot be assessed. Reflexes are equal and symmetrical and there is no clonus and no Babinski at this point in time. Extremities: No clubbing edema or cyanosis - Labs CBC & Chem 7: 07/29/20 05:45 07/29/20 05:45 Labs: Abnormal Lab Results - Last 24 Hours (Table) 07/28/20 07/28/20 07/28/20 Range/Units 08:18 09:51 11:10 WBC (3.8-10.6) k/uL RBC (3.80-5.40) m/uL Hgb (11.4-16.0) gm/dL Hct (34.0-46.0) % Neutrophils # (1.3-7.7) k/uL ABG pH (7.35-7.45) ABG pO2 (83-108) mmHg ABG HCO3 (21-25) mmol/L ABG Total CO2 (19-24) mmol/L ABG O2 Saturation (94-97) % BUN (7-17) mg/dL Glucose (74-99) mg/dL POC Glucose (mg/dL) 118 H 102 H 119 H (75-99) mg/dL Calcium (8.4-10.2) mg/dL AST (14-36) U/L Total Protein (6.3-8.2) g/dL Albumin (3.5-5.0) g/dL 07/28/20 07/28/20 07/28/20 Range/Units 12:54 15:29 17:02 WBC (3.8-10.6) k/uL RBC (3.80-5.40) m/uL Hgb (11.4-16.0) gm/dL Hct (34.0-46.0) % Neutrophils # (1.3-7.7) k/uL ABG pH (7.35-7.45) ABG pO2 (83-108) mmHg ABG HCO3 (21-25) mmol/L ABG Total CO2 (19-24) mmol/L ABG O2 Saturation (94-97) % BUN (7-17) mg/dL Glucose (74-99) mg/dL POC Glucose (mg/dL) 112 H 139 H 135 H (75-99) mg/dL Calcium (8.4-10.2) mg/dL AST (14-36) U/L Total Protein (6.3-8.2) g/dL Albumin (3.5-5.0) g/dL 07/28/20 07/28/20 07/29/20 Range/Units 18:55 23:43 00:52 WBC (3.8-10.6) k/uL RBC (3.80-5.40) m/uL Hgb (11.4-16.0) gm/dL Hct (34.0-46.0) % Neutrophils # (1.3-7.7) k/uL ABG pH (7.35-7.45) ABG pO2 (83-108) mmHg ABG HCO3 (21-25) mmol/L ABG Total CO2 (19-24) mmol/L ABG O2 Saturation (94-97) % BUN (7-17) mg/dL Glucose (74-99) mg/dL POC Glucose (mg/dL) 134 H 132 H 130 H (75-99) mg/dL Calcium (8.4-10.2) mg/dL AST (14-36) U/L Total Protein (6.3-8.2) g/dL Albumin (3.5-5.0) g/dL 07/29/20 07/29/20 07/29/20 Range/Units 02:45 05:25 05:36 WBC (3.8-10.6) k/uL RBC (3.80-5.40) m/uL Hgb (11.4-16.0) gm/dL Hct (34.0-46.0) % Neutrophils # (1.3-7.7) k/uL ABG pH 7.49 H (7.35-7.45) ABG pO2 82 L (83-108) mmHg ABG HCO3 27 H (21-25) mmol/L ABG Total CO2 28 H (19-24) mmol/L ABG O2 Saturation 98.0 H (94-97) % BUN (7-17) mg/dL Glucose (74-99) mg/dL POC Glucose (mg/dL) 122 H 112 H (75-99) mg/dL Calcium (8.4-10.2) mg/dL AST (14-36) U/L Total Protein (6.3-8.2) g/dL Albumin (3.5-5.0) g/dL 07/29/20 07/29/20 07/29/20 Range/Units 05:45 05:45 06:51 WBC 11.5 H (3.8-10.6) k/uL RBC 2.33 L (3.80-5.40) m/uL Hgb 6.9 L* (11.4-16.0) gm/dL Hct 21.2 L (34.0-46.0) % Neutrophils # 8.9 H (1.3-7.7) k/uL ABG pH (7.35-7.45) ABG pO2 (83-108) mmHg ABG HCO3 (21-25) mmol/L ABG Total CO2 (19-24) mmol/L ABG O2 Saturation (94-97) % BUN 25 H (7-17) mg/dL Glucose 114 H (74-99) mg/dL POC Glucose (mg/dL) 107 H (75-99) mg/dL Calcium 8.3 L (8.4-10.2) mg/dL AST 115 H (14-36) U/L Total Protein 4.8 L (6.3-8.2) g/dL Albumin 2.9 L (3.5-5.0) g/dL Assessment and Plan Plan: 1 Triple-vessel coronary artery disease , status post CABG postoperative day #2. The patient remains intubated on mechanical ventilator. She is post th oracotomy. She remains on assist control mode of ventilation. There is some mild respiratory alkalosis on a blood gas and based on that I'm going to load a tidal volume. Chest x-ray was noted. Blood gases was noted. She remains on low-dose norepinephrine infusion essentially to maintain a adequate blood pressure in the arterial pressure above 65 post CVA. 2 Postoperative acute/subacute right cerebellar infarct. CT angios of the brain was done and the patient has 75% stenosis of the internal and external carotid arteries bilaterally. This is most likely an embolic phenomena post bypass surgery. The follow-up neurologic evaluation will be done today. Patient remains sedated with propofol for now. 3 Left sided hemiparesis due to above. 4 Remote History of non-small cell lung cancer and previous lobectomy. 5 History of smoking/ex-smoker. 6 Minimal COPD based on her PFT. 7 Family history of premature coronary artery disease. 8 Hypertension. 9 Peripheral vessel occlusive disease 10 Degenerative joint disease 11 Dyslipidemia. 12 Chronic insomnia. 13 anemia, secondary to blood loss and his and expected outcome of surgery, cardiomegaly was at 6.9. No evidence of any acute bleeding Plan Stop the tidal volume to 400s Stop the propofol or wean the propofol and assess the patient's underlying neurologic status and function. Neuro checks will be done. If significant agitation is encountered, we will utilize Precedex for sedation. Possible weaning today and this will largely depend on her neurologic function is Hemoglobin is at 6.9 and we'll hold off on any transfusions for now Continue aspirin statins and Plavix and beta blockers. Hold enteral feeding as the patient is undergoing her sedation holiday Discontinue unnecessary catheters or tubes, the mediastinal chest tubes can be removed and the left pleural chest tube will be kept in place for now Neurology follow-up Cardiology follow-up We'll continue to follow. Critical care time is over 30 minutes Time with Patient: Greater than 30
--- NOTE | 2020-07-29 07:40 | P.PN ---
Subjective Progress Note Date: 07/29/20 Principal diagnosis: Severe triple-vessel coronary artery disease This is a 75-year-old female patient was admitted to the hospital with angina and underwent a heart catheterization which revealed severe triple-vessel coronary artery disease. The patient was seen by surgeon yesterday and the plan to pursue coronary artery that was grafting this coming Thursday. The echo reveal ed normal left ventricular systolic function was mild aortic stenosis. Subsequently the patient underwent coronary artery bypass grafting 3 yesterday with LINDER to LAD and SVG to OM and SVG to PDA. Unfortunately the surgery was complicated by stroke. The CTA showed cerebellar infarction appeared to be acute/subacute. The patient was seen today July 292020. She remains intubatet per a request from the intensive care team. She still on small dose of epinephrine to support her blood pressure. She has been maintaining normal sinus mechanism. She is on dual antiplatelet therapy along with a statin. Neurology was consulted. She underwent yesterday a CTA of the head and neck and that showed severe stenosis involving the internal carotid artery bilaterally. Objective - Vital Signs Vital signs: Vital Signs Temp 97.1 F L 07/29/20 04:00 Pulse 74 07/28/20 21:25 Resp 19 07/29/20 04:00 BP 100/52 07/29/20 04:00 Pulse Ox 97 07/29/20 04:00 Intake & Output 07/28/20 07/29/20 07/29/20 18:59 06:59 18:59 Intake Total 1089.964 457.07 Output Total 480 465 Balance 609.964 -7.93 Weight 86.8 kg Intake: IV 690 450 CO/CI 60 Lactated Ringers 1,000 ml 580 450 @ 50 mls/hr IV .Q20H [facility] Rx#:[id number] ceFAZolin 2 gm In Sodium 50 Chloride 0.9% 50 ml @ 100 mls/hr IVPB Q8H [facility] Rx#: [id number] Intake, IV Titration 399.964 7.07 Amount Dexmedetomidine/0.9% NaCl 81.928 (Pmx) 400 mcg In Empty Bag 1 bag @ Titrate IV . Q0M [facility] Rx#:[id number] Insulin Regular 100 unit 22.473 7.07 In Sodium Chloride 0.9% 100 ml @ Per Protocol IV .Q0M [facility] Rx#:[id number] Milrinone-D5w Pmx 20 mg 41.185 In Dextrose/Water 1 100ml .bag @ 0.2 MCG/KG/MIN 4. 962 mls/hr IV .[id number] [facility] Rx#:[id number] Norepinephrine 4 mg In 254.378 Sodium Chloride 0.9% 250 ml @ 0.05 MCG/KG/MIN 15. 754 mls/hr IV .Q16H8M [facility] Rx#:[id number] Output: Chest Tube Drainage 110 Chest Tube Bilateral 70 Mediastinal Left Lateral Chest 40 Urine 370 465 Other: Voiding Method Indwelling Catheter Indwelling Catheter ABP, PAP, CO, CI - Last Documented Arterial Blood Pressure 104/43 Pulmonary Artery Pressure 40/20 Cardiac Output 4.3 Cardiac Index 2.2 - Constitutional General appearance: Present: no acute distress - Respiratory Respiratory: bilateral: CTA - Cardiovascular Rhythm: regular Heart sounds: normal: S1, S2 - Labs CBC & Chem 7: 07/29/20 05:45 07/29/20 05:45 Labs: Abnormal Lab Results - Last 24 Hours (Table) 07/28/20 07/28/20 07/28/20 Range/Units 08:18 09:51 11:10 WBC (3.8-10.6) k/uL RBC (3.80-5.40) m/uL Hgb (11.4-16.0) gm/dL Hct (34.0-46.0) % Neutrophils # (1.3-7.7) k/uL ABG pH (7.35-7.45) ABG pO2 (83-108) mmHg ABG HCO3 (21-25) mmol/L ABG Total CO2 (19-24) mmol/L ABG O2 Saturation (94-97) % BUN (7-17) mg/dL Glucose (74-99) mg/dL POC Glucose (mg/dL) 118 H 102 H 119 H (75-99) mg/dL Calcium (8.4-10.2) mg/dL AST (14-36) U/L Total Protein (6.3-8.2) g/dL Albumin (3.5-5.0) g/dL 07/28/20 07/28/20 07/28/20 Range/Units 12:54 15:29 17:02 WBC (3.8-10.6) k/uL RBC (3.80-5.40) m/uL Hgb (11.4-16.0) gm/dL Hct (34.0-46.0) % Neutrophils # (1.3-7.7) k/uL ABG pH (7.35-7.45) ABG pO2 (83-108) mmHg ABG HCO3 (21-25) mmol/L ABG Total CO2 (19-24) mmol/L ABG O2 Saturation (94-97) % BUN (7-17) mg/dL Glucose (74-99) mg/dL POC Glucose (mg/dL) 112 H 139 H 135 H (75-99) mg/dL Calcium (8.4-10.2) mg/dL AST (14-36) U/L Total Protein (6.3-8.2) g/dL Albumin (3.5-5.0) g/dL 07/28/20 07/28/20 07/29/20 Range/Units 18:55 23:43 00:52 WBC (3.8-10.6) k/uL RBC (3.80-5.40) m/uL Hgb (11.4-16.0) gm/dL Hct (34.0-46.0) % Neutrophils # (1.3-7.7) k/uL ABG pH (7.35-7.45) ABG pO2 (83-108) mmHg ABG HCO3 (21-25) mmol/L ABG Total CO2 (19-24) mmol/L ABG O2 Saturation (94-97) % BUN (7-17) mg/dL Glucose (74-99) mg/dL POC Glucose (mg/dL) 134 H 132 H 130 H (75-99) mg/dL Calcium (8.4-10.2) mg/dL AST (14-36) U/L Total Protein (6.3-8.2) g/dL Albumin (3.5-5.0) g/dL 07/29/20 07/29/20 07/29/20 Range/Units 02:45 05:25 05:36 WBC (3.8-10.6) k/uL RBC (3.80-5.40) m/uL Hgb (11.4-16.0) gm/dL Hct (34.0-46.0) % Neutrophils # (1.3-7.7) k/uL ABG pH 7.49 H (7.35-7.45) ABG pO2 82 L (83-108) mmHg ABG HCO3 27 H (21-25) mmol/L ABG Total CO2 28 H (19-24) mmol/L ABG O2 Saturation 98.0 H (94-97) % BUN (7-17) mg/dL Glucose (74-99) mg/dL POC Glucose (mg/dL) 122 H 112 H (75-99) mg/dL Calcium (8.4-10.2) mg/dL AST (14-36) U/L Total Protein (6.3-8.2) g/dL Albumin (3.5-5.0) g/dL 07/29/20 07/29/20 07/29/20 Range/Units 05:45 05:45 06:51 WBC 11.5 H (3.8-10.6) k/uL RBC 2.33 L (3.80-5.40) m/uL Hgb 6.9 L* (11.4-16.0) gm/dL Hct 21.2 L (34.0-46.0) % Neutrophils # 8.9 H (1.3-7.7) k/uL ABG pH (7.35-7.45) ABG pO2 (83-108) mmHg ABG HCO3 (21-25) mmol/L ABG Total CO2 (19-24) mmol/L ABG O2 Saturation (94-97) % BUN 25 H (7-17) mg/dL Glucose 114 H (74-99) mg/dL POC Glucose (mg/dL) 107 H (75-99) mg/dL Calcium 8.3 L (8.4-10.2) mg/dL AST 115 H (14-36) U/L Total Protein 4.8 L (6.3-8.2) g/dL Albumin 2.9 L (3.5-5.0) g/dL Assessment and Plan Assessment: Assessment #1 severe triple-vessel coronary artery disease #2 preserved left ventricular systolic function #3 status post coronary artery bypass grafting as described above #4 acute/subacute cerebellar infarction Plan #1 continue dual antiplatelet therapy #2 continue statin #3 continue monitor the kidney function and electrolytes #4 follow-up with the patient
--- NOTE | 2020-07-29 08:01 | P.PN ---
Subjective Progress Note Date: 07/29/20 Principal diagnosis: Triple-vessel coronary artery disease, unstable angina. History of coronary artery disease with previous myocardial infarction and stent placement, peripheral arterial disease with lower extremity stenting, lung cancer status post right lower lobectomy in 2012, hypertension, hyperlipidemia, COPD with previous tobacco dependence, anxiety/depression, family history of premature coronary artery disease, significant plaque formation more than 75% stenosis at the origins of both internal and external carotid arteries bilaterally on CTA POD #2 coronary artery bypass grafting 3 vessels, left internal mammary artery to the left anterior descending artery, reverse saphenous vein graft to the obtuse marginal artery, reverse saphenous vein graft to the posterior descending artery, endoscopic harvesting of the right greater saphenous vein, ligation of the left atrial appendage using a 35 mm AtriClip, epi-aortic ultrasound and intraoperative transesophageal echocardiogram Postoperative acute blood loss anemia, expected given hemodilution and cardiopulmonary bypass pump Postoperative right acute/subacute cerebellar infarct on brain CT, unexpected, although possible complication of any open heart surgery, especially given patient's known history of significant arterial disease The patient was seen and examined at the bedside. She was sedated with Precedex on mechanical ventilation yesterday, last night she was felt to be very restless and was asynchronous with the vent so Precedex was discontinued and she was placed on propofol, very sedated this morning. She did have a CTA yesterday demonstrating significant plaque formation at the carotid artery bifurcation more than 75% stenosis at the origins of the internal and external carotid art eries bilaterally. She remains in sinus rhythm. Currently hypotensive requiring Levophed. Mediastinal, left pleural chest tubes, right internal jugular Cordis, right radial arterial line remains present. Unable to follow any commands or respond at this time secondary to propofol sedation, pupils are equal and reactive 3 mm. She was initiated on trickle feeds yesterday. Son's Osmany and Christian updated yesterday. Objective - Vital Signs Vital signs: Vital Signs Temp 97.1 F L 07/29/20 04:00 Pulse 74 07/28/20 21:25 Resp 19 07/29/20 04:00 BP 100/52 07/29/20 04:00 Pulse Ox 97 07/29/20 04:00 Intake & Output 07/28/20 07/29/20 07/29/20 18:59 06:59 18:59 Intake Total 1089.964 457.07 Output Total 480 465 Balance 609.964 -7.93 Weight 86.8 kg Intake: IV 690 450 CO/CI 60 Lactated Ringers 1,000 ml 580 450 @ 50 mls/hr IV .Q20H [facility] Rx#:[id number] ceFAZolin 2 gm In Sodium 50 Chloride 0.9% 50 ml @ 100 mls/hr IVPB Q8H [facility] Rx#: [id number] Intake, IV Titration 399.964 7.07 Amount Dexmedetomidine/0.9% NaCl 81.928 (Pmx) 400 mcg In Empty Bag 1 bag @ Titrate IV . Q0M [facility] Rx#:[id number] Insulin Regular 100 unit 22.473 7.07 In Sodium Chloride 0.9% 100 ml @ Per Protocol IV .Q0M [facility] Rx#:[id number] Milrinone-D5w Pmx 20 mg 41.185 In Dextrose/Water 1 100ml .bag @ 0.2 MCG/KG/MIN 4. 962 mls/hr IV .[id number] [facility] Rx#:[id number] Norepinephrine 4 mg In 254.378 Sodium Chloride 0.9% 250 ml @ 0.05 MCG/KG/MIN 15. 754 mls/hr IV .Q16H8M [facility] Rx#:[id number] Output: Chest Tube Drainage 110 Chest Tube Bilateral 70 Mediastinal Left Lateral Chest 40 Urine 370 465 Other: Voiding Method Indwelling Catheter Indwelling Catheter ABP, PAP, CO, CI - Last Documented Arterial Blood Pressure 104/43 Pulmonary Artery Pressure 40/20 Cardiac Output 4.3 Cardiac Index 2.2 - Constitutional Constitutional Comment(s): Sedated with propofol on mechanical ventilation - Respiratory Details: Lungs sounds diminished bilaterally. Respirations even, nonlabored on mechanical ventilation. Current ventilator settings FiO2 40%, tidal volume 450, respiratory rate 16, PEEP 5. ABG this morning on those settings 7.49/36/82/27/98%/3.6. 8.0 ET tube present, 22 at the lip. Mediastinal chest tube present to continuous wall suction, 100 mL serosanguineous drainage in the last 24 hours, no air leak present. Left pleural chest tube present to con tinuous wall suction, 70 mL serosanguineous drainage in the last 24 hours, no air leak present. - Cardiovascular Details: S1, S2 present. Regular rate and rhythm, sinus rhythm on telemetry. Sternum stable. A/V epicardial pacemaker wires present, connected to generator, AAI mode with backup rate 50 bpm. Palpable peripheral pulses bilaterally. No edema present. No calf pain or tenderness noted. Heart hugger, antiembolism stockings, SCDs present. Right internal jugular Cordis, right radial arterial line present. Remains on IV Levophed for hypotension - Gastrointestinal Gastrointestinal Comment(s): Abdomen soft, nontender, nondistended. Active bowel sounds present 4 quadrants. OG tube present with trickle tube feeding infusing - Genitourinary Genitourinary Comment(s): Da Silva present draining clear, yellow urine. Output 40-75 mL/h overnight. - Integumentary Integumentary Comment(s): Skin is warm and dry with evidence of good perfusion. Anterior chest incision well approximated and covered with dry intact dressing. Right lower extremity EVH site well approximated without redness or drainage. - Neurologic Neurologic Comment(s): Unable to assess due to heavy sedation with propofol - Psychiatric Psychiatric Comment(s): Unable to assess due to heavy sedation with propofol - Allied health notes Allied health notes reviewed: nursing - Labs CBC & Chem 7: 07/29/20 05:45 07/29/20 05:45 Labs: Abnormal Lab Results - Last 24 Hours (Table) 07/28/20 07/28/20 07/28/20 Range/Units 08:18 09:51 11:10 WBC (3.8-10.6) k/uL RBC (3.80-5.40) m/uL Hgb (11.4-16.0) gm/dL Hct (34.0-46.0) % Neutrophils # (1.3-7.7) k/uL ABG pH (7.35-7.45) ABG pO2 (83-108) mmHg ABG HCO3 (21-25) mmol/L ABG Total CO2 (19-24) mmol/L ABG O2 Saturation (94-97) % BUN (7-17) mg/dL Glucose (74-99) mg/dL POC Glucose (mg/dL) 118 H 102 H 119 H (75-99) mg/dL Calcium (8.4-10.2) mg/dL AST (14-36) U/L Total Protein (6.3-8.2) g/dL Albumin (3.5-5.0) g/dL 07/28/20 07/28/20 07/28/20 Range/Units 12:54 15:29 17:02 WBC (3.8-10.6) k/uL RBC (3.80-5.40) m/uL Hgb (11.4-16.0) gm/dL Hct (34.0-46.0) % Neutrophils # (1.3-7.7) k/uL ABG pH (7.35-7.45) ABG pO2 (83-108) mmHg ABG HCO3 (21-25) mmol/L ABG Total CO2 (19-24) mmol/L ABG O2 Saturation (94-97) % BUN (7-17) mg/dL Glucose (74-99) mg/dL POC Glucose (mg/dL) 112 H 139 H 135 H (75-99) mg/dL Calcium (8.4-10.2) mg/dL AST (14-36) U/L Total Protein (6.3-8.2) g/dL Albumin (3.5-5.0) g/dL 07/28/20 07/28/20 07/29/20 Range/Units 18:55 23:43 00:52 WBC (3.8-10.6) k/uL RBC (3.80-5.40) m/uL Hgb (11.4-16.0) gm/dL Hct (34.0-46.0) % Neutrophils # (1.3-7.7) k/uL ABG pH (7.35-7.45) ABG pO2 (83-108) mmHg ABG HCO3 (21-25) mmol/L ABG Total CO2 (19-24) mmol/L ABG O2 Saturation (94-97) % BUN (7-17) mg/dL Glucose (74-99) mg/dL POC Glucose (mg/dL) 134 H 132 H 130 H (75-99) mg/dL Calcium (8.4-10.2) mg/dL AST (14-36) U/L Total Protein (6.3-8.2) g/dL Albumin (3.5-5.0) g/dL 07/29/20 07/29/20 07/29/20 Range/Units 02:45 05:25 05:36 WBC (3.8-10.6) k/uL RBC (3.80-5.40) m/uL Hgb (11.4-16.0) gm/dL Hct (34.0-46.0) % Neutrophils # (1.3-7.7) k/uL ABG pH 7.49 H (7.35-7.45) ABG pO2 82 L (83-108) mmHg ABG HCO3 27 H (21-25) mmol/L ABG Total CO2 28 H (19-24) mmol/L ABG O2 Saturation 98.0 H (94-97) % BUN (7-17) mg/dL Glucose (74-99) mg/dL POC Glucose (mg/dL) 122 H 112 H (75-99) mg/dL Calcium (8.4-10.2) mg/dL AST (14-36) U/L Total Protein (6.3-8.2) g/dL Albumin (3.5-5.0) g/dL 07/29/20 07/29/20 07/29/20 Range/Units 05:45 05:45 06:51 WBC 11.5 H (3.8-10.6) k/uL RBC 2.33 L (3.80-5.40) m/uL Hgb 6.9 L* (11.4-16.0) gm/dL Hct 21.2 L (34.0-46.0) % Neutrophils # 8.9 H (1.3-7.7) k/uL ABG pH (7.35-7.45) ABG pO2 (83-108) mmHg ABG HCO3 (21-25) mmol/L ABG Total CO2 (19-24) mmol/L ABG O2 Saturation (94-97) % BUN 25 H (7-17) mg/dL Glucose 114 H (74-99) mg/dL POC Glucose (mg/dL) 107 H (75-99) mg/dL Calcium 8.3 L (8.4-10.2) mg/dL AST 115 H (14-36) U/L Total Protein 4.8 L (6.3-8.2) g/dL Albumin 2.9 L (3.5-5.0) g/dL - Imaging and Cardiology Chest x-ray: report reviewed, image reviewed Assessment and Plan Assessment: 1. Triple-vessel coronary artery disease, unstable angina, status post three- vessel CABG 2. History of coronary artery disease with previous myocardial infarction and stent placement 3. Peripheral arterial disease with lower extremity stenting 4. History of lung cancer status post right lower lobectomy 5. Hypertension, currently hypotensive requiring IV pressors 6. Hyperlipidemia, treated, cholesterol 152, LDL 85 7. COPD with previous tobacco dependence, preoperative FEV1 82% of predicted 8. Anxiety/depression 9. Family history of premature coronary artery disease 10. Postoperative acute blood loss anemia, expected 11. Postoperative acute/subacute right cerebellar infarct, unexpected 12. Bilateral internal carotid artery disease greater than 75% present on CTA Plan: 1. Continue ASA, statin, Plavix, beta tran. Will increase beta tran therapy as tolerated 2. Wean levo as tolerated. 3. Mechanical ventilation per pulmonology. May wean to extubate when able. Bronchodilators per pulmonology 4. Neurology consulted, appreciate recommendations. Neuro checks every hour 5. Once extubated will increase activity as tolerated, work to improve movement on the left side. PT/OT/cardiac rehab consulted 6. Once extubated will encourage incentive spirometry use 7. Will monitor daily labs and x-rays. Electrolyte replacement per protocol. 8. GI/DVT prophylaxis 9. Pain control is current medication regimen 10. Will discontinue mediastinal chest tubes. Continue left pleural chest tube for another 24 hours. 11. Will continue Da Silva catheter 12. Strict accurate intake and output. Daily weights 13. Limit sedation to be able to assess neuro status, prefer Precedex versus propofol 14. Will update patient's family daily 15. Will consult social work as patient will need rehab at discharge 16. More recommendations to follow based on patient's clinical course Time with Patient: Greater than 30
[2020-07-29 08:06] LABS: Glucose,Whole Blood 120 mg/dL (75-99)
[2020-07-29] MEDS ORDERED: DEXMEDETOMIDINE/0.9% NACL(PMX) 400 MCG in EMPTY BAG 1 BAG IV SCH (08:15)
[2020-07-29] MEDS: IPRATROPIUM-ALBUTEROL 3 ML NEB INHALATION SCH ×4 (09:15→20:49)
[2020-07-29] MEDS: SERTRALINE 100 MG TAB PO SCH (09:36)
[2020-07-29] MEDS: PANTOPRAZOLE 40 MG/10 ML VIAL IVP SCH (09:36)
[2020-07-29] MEDS: METOPROLOL TARTRATE 12.5 MG TAB PO SCH ×2 (09:36→20:33)
[2020-07-29] MEDS: ASPIRIN 325 MG TAB PO SCH (09:36)
[2020-07-29] MEDS: CLOPIDOGREL 75 MG TAB PO SCH (09:36)
[2020-07-29] MEDS: HEPARIN SODIUM,PORCINE 5,000 UNIT/ML 1 ML VIAL SQ SCH ×2 (09:36→17:28)
[2020-07-29 10:04] LABS: Glucose,Whole Blood 131 mg/dL (75-99)
[2020-07-29] MEDS ORDERED: FUROSEMIDE 10 MG/ML 2 ML VIAL IV ONE (10:29)
[2020-07-29 11:24] LABS: Glucose,Whole Blood 150 mg/dL (75-99)
--- NOTE | 2020-07-29 11:29 | CT ---
EXAMINATION TYPE: CT brain wo con DATE OF EXAM: 07/29/2020 COMPARISON: 07/28/2020 HISTORY: Re-evaluate infarct CT DLP: 1133.[address] of the brain was performed. The ventricles, basal cisterns and sulci overlying the cerebral convexities demonstrate moderate enla rgement. Stable relatively recent insult high right cerebellar hemisphere. Remote areas of insult rig ht occipital lobe and high right parietal lobe. Additional lacunar infarcts noted. Mild Remote insult left cerebellum. There is no evidence for intracranial hemorrhage or sulcal effacement. There is decreased attenuation about the periventricular white matter and deep white matter of both c erebral hemispheres, compatible with chronic small vessel ischemia. Differential diagnosis does inclu de demyelination. No mass effects are seen.No midline shift. Osseous calvarium is intact. If symptoms persist consider MRI. IMPRESSION: 1. No significant interval change. Relatively recent ischemic insult the right cerebellar hemisphere. No evidence for hemorrhagic transformation.
[2020-07-29] MEDS ORDERED: levETIRAcetam IV 1,500 MG in SALINE 1 100ML.BAG IVPB STA (11:32)
[2020-07-29 12:21] LABS: Glucose,Whole Blood 161 mg/dL (75-99)
--- NOTE | 2020-07-29 12:47 | P.PN ---
Subjective Progress Note Date: 07/29/20 The patient is seen at bedside and continues to be intubated and on ventilator. Per the patient's nurse the patient was agitated yesterday while on Precedex and as result she was placed on Propofol IV drip and is on 30mcg/kg/hr. Per the patient nurse the patient is only moving the right upper and lower ex tremity as well as the the left the toes. Objective - Vital Signs Vital signs: Vital Signs Temp 99.3 F 07/29/20 08:00 Pulse 88 07/29/20 08:00 Resp 26 H 07/29/20 08:00 BP 94/54 07/29/20 06:00 Pulse Ox 94 L 07/29/20 08:00 Intake & Output 07/28/20 07/29/20 07/29/20 18:59 06:59 18:59 Intake Total 1089.964 537.07 289.21 Output Total 480 465 175 Balance 609.964 72.07 114.21 Weight 86.8 kg 88.3 kg Intake: IV 690 530 80 CO/CI 60 Lactated Ringers 1,000 ml 580 530 80 @ 50 mls/hr IV .Q20H [facility] Rx#:[id number] ceFAZolin 2 gm In Sodium 50 Chloride 0.9% 50 ml @ 100 mls/hr IVPB Q8H [facility] Rx#: [id number] Intake, IV Titration 399.964 7.07 209.21 Amount Dexmedetomidine/0.9% NaCl 81.928 (Pmx) 400 mcg In Empty Bag 1 bag @ Titrate IV . Q0M [facility] Rx#:[id number] Insulin Regular 100 unit 22.473 7.07 0 In Sodium Chloride 0.9% 100 ml @ Per Protocol IV .Q0M [facility] Rx#:[id number] Milrinone-D5w Pmx 20 mg 41.185 In Dextrose/Water 1 100ml .bag @ 0.2 MCG/KG/MIN 4. 962 mls/hr IV .Q22R14C [facility] Rx#:[id number] Norepinephrine 4 mg In 254.378 209.21 Sodium Chloride 0.9% 250 ml @ 0.05 MCG/KG/MIN 15. 754 mls/hr IV .Q16H8M [facility] Rx#:[id number] Output: Chest Tube Drainage 110 Chest Tube Bilateral 70 Mediastinal Left Lateral Chest 40 Urine 370 465 175 Other: Voiding Method Indwelling Catheter Indwelling Catheter ABP, PAP, CO, CI - Last Documented Arterial Blood Pressure 153/56 Pulmonary Artery Pressure 40/20 Cardiac Output 4.3 Cardiac Index 2.2 - Exam GENERAL: The patient is lying in bed and is not in acute distress. CHEST: The heart rate is regular rate rhythm. No murmurs to auscultation. No carotid bruit bilaterally. LUNG: Clear to auscultation bilaterally no wheezing noted throughout. Not labored breathing. Intubated and on ventilator (breathing over the vent). Patient has chest tube. ABDOMEN/GI: Bowel sounds present in all 4 quadrants. No tenderness to palpation throughout. NEUROLOGICAL: Limited since the patient is intubated on ventilator. Propofol IV continous (30mcg/kg/hr) drip was held for 1 1/2 hours prior to examination. Higher mental function: The patient is awake and not following commands or attempt to communicate. Cranial nerves: The pupils are round, equal 2-3mm bilaterally and reactive to light. Had gaze preference upward bilaterally. No facial weakness noted bilaterally. Rest of cranial nerves unable to assess. Motor: Gait is deferred. The strength is moving the entire the right upper and lower extremity spontaneously and was getting agitated but not squeezing hand. I felt she had dorsiflexion of right hand. Had movement of digitis of toes over the left with painful stimuli otherwise no movement over the left side. Slight decrease tone over the left. Normal bulk. Cerebellum: Unable to assess. Sensation:Could not assess light touch. Reflexes (right/left): 1+ throughout. Profol was restarted and patient had primary gaze at center bilaterally. - Labs CBC & Chem 7: 07/29/20 05:45 07/29/20 05:45 Labs: Abnormal Lab Results - Last 24 Hours (Table) 07/28/20 07/28/20 07/28/20 Range/Units 09:51 11:10 12:54 WBC (3.8-10.6) k/uL RBC (3.80-5.40) m/uL Hgb (11.4-16.0) gm/dL Hct (34.0-46.0) % Neutrophils # (1.3-7.7) k/uL ABG pH (7.35-7.45) ABG pO2 (83-108) mmHg ABG HCO3 (21-25) mmol/L ABG Total CO2 (19-24) mmol/L ABG O2 Saturation (94-97) % BUN (7-17) mg/dL Glucose (74-99) mg/dL POC Glucose (mg/dL) 102 H 119 H 112 H (75-99) mg/dL Calcium (8.4-10.2) mg/dL AST (14-36) U/L Total Protein (6.3-8.2) g/dL Albumin (3.5-5.0) g/dL 07/28/20 07/28/20 07/28/20 Range/Units 15:29 17:02 18:55 WBC (3.8-10.6) k/uL RBC (3.80-5.40) m/uL Hgb (11.4-16.0) gm/dL Hct (34.0-46.0) % Neutrophils # (1.3-7.7) k/uL ABG pH (7.35-7.45) ABG pO2 (83-108) mmHg ABG HCO3 (21-25) mmol/L ABG Total CO2 (19-24) mmol/L ABG O2 Saturation (94-97) % BUN (7-17) mg/dL Glucose (74-99) mg/dL POC Glucose (mg/dL) 139 H 135 H 134 H (75-99) mg/dL Calcium (8.4-10.2) mg/dL AST (14-36) U/L Total Protein (6.3-8.2) g/dL Albumin (3.5-5.0) g/dL 07/28/20 07/29/20 07/29/20 Range/Units 23:43 00:52 02:45 WBC (3.8-10.6) k/uL RBC (3.80-5.40) m/uL Hgb (11.4-16.0) gm/dL Hct (34.0-46.0) % Neutrophils # (1.3-7.7) k/uL ABG pH (7.35-7.45) ABG pO2 (83-108) mmHg ABG HCO3 (21-25) mmol/L ABG Total CO2 (19-24) mmol/L ABG O2 Saturation (94-97) % BUN (7-17) mg/dL Glucose (74-99) mg/dL POC Glucose (mg/dL) 132 H 130 H 122 H (75-99) mg/dL Calcium (8.4-10.2) mg/dL AST (14-36) U/L Total Protein (6.3-8.2) g/dL Albumin (3.5-5.0) g/dL 07/29/20 07/29/20 07/29/20 Range/Units 05:25 05:36 05:45 WBC 11.5 H (3.8-10.6) k/uL RBC 2.33 L (3.80-5.40) m/uL Hgb 6.9 L* (11.4-16.0) gm/dL Hct 21.2 L (34.0-46.0) % Neutrophils # 8.9 H (1.3-7.7) k/uL ABG pH 7.49 H (7.35-7.45) ABG pO2 82 L (83-108) mmHg ABG HCO3 27 H (21-25) mmol/L ABG Total CO2 28 H (19-24) mmol/L ABG O2 Saturation 98.0 H (94-97) % BUN (7-17) mg/dL Glucose (74-99) mg/dL POC Glucose (mg/dL) 112 H (75-99) mg/dL Calcium (8.4-10.2) mg/dL AST (14-36) U/L Total Protein (6.3-8.2) g/dL Albumin (3.5-5.0) g/dL 07/29/20 07/29/20 07/29/20 Range/Units 05:45 06:51 08:04 WBC (3.8-10.6) k/uL RBC (3.80-5.40) m/uL Hgb (11.4-16.0) gm/dL Hct (34.0-46.0) % Neutrophils # (1.3-7.7) k/uL ABG pH (7.35-7.45) ABG pO2 (83-108) mmHg ABG HCO3 (21-25) mmol/L ABG Total CO2 (19-24) mmol/L ABG O2 Saturation (94-97) % BUN 25 H (7-17) mg/dL Glucose 114 H (74-99) mg/dL POC Glucose (mg/dL) 107 H 120 H (75-99) mg/dL Calcium 8.3 L (8.4-10.2) mg/dL AST 115 H (14-36) U/L Total Protein 4.8 L (6.3-8.2) g/dL Albumin 2.9 L (3.5-5.0) g/dL Assessment and Plan Assessment: This is a 75-year-old woman with multiple medical problems the underwent coronary artery bypass grafting yesterday (07/27/2020) for her severe triple coronary artery disease. Today while the sedation was off was noted that she had left-sided weakness is CT head was done and showed acute to subacute area infarct in the right cerebellar. Acute/subacute infarct over the right cerebellar due to cardioembolic (post CABG) Seems patient has chronic right parietal ischemic stroke Left hemiplegia due to above Bilateral internal carotid stenosis (>75% per CTA) and not significant stenosis per carotid duplex prior to surgery. I am not sure if this is over-read. Altered mental status due to multifactorial: Medication (on Propofol IV drip), component of metabolic hypotensive and elevated AST Triple vessel coronary artery disease, unstable angina status post CABG (07/27/20) Hypotensive shock on Levophed Anemia Mild Elevated AST Peripheral arterial disease with lower extremity stenting History of lung cancer status post right lower lobectomy Hyperlipidemia Hypertension Hyperlipidemia Previous tobacco use Plan: CT of the head (07/28/2020) which is poor as acute/subacute area of infarct in the right cerebellum along with probable area of chronic infarction in the right parietal region and age atrophy and small vessel disease of aging. She continues to be hypotensive requiring levophed. She's been having blood pressure as low as systolic in the 90s and diastolic between 40s to 50s. Patient has family history of premature coronary artery disease Carotid duplex on 07/23/2020 is reported as extensive plaque with no significant hemodynamic stenosis. CT angiography of the head and neck 07/28/20: Significant plaque formation at the carotid artery bifurcation and more than 75% stenosis at the origin of the internal and external carotid arteries bilaterally. Significant calcification or plaque in the intracranial and internal carotid arteries and probably more than 50% stenosis. Continue aspirin 325, Plavix 75 and Lipitor 80 mg. Lipid panel: Triglyceride 140, cholesterol 152, LDL of 85, HDL of 39. TSH is 1.66 which is normal. PT, OT are consulted Q1 hour neurochecks. I consulted vascular surgery team for the significant internal carotid arteries. I ordered a repeat CT of the head for today to see if there is any evolution of the stroke. I ordered a carotid duplex. We'll get MRI the brain once the patient is stable. I started the patient on the Keppra loaded with Keppra 1500mg once stat and then 500mg 1 tab bid since patient had gaze preference upward which seems concerning for seizure (especially since was not following commands and with stroke that can cause cortical cortical irritability leading to seizure). I ordered an EEG Please avoid any hypotensive episode and we'll defer the management to the primary as well as ICU team. Please avoid any sedation/narcotic that will affect the patient's mentation if possible. The plan was discussed with the patient son (Christian via phone), and patient's nurse. Yamil Luong MD Neuro-Hospitalist Time with Patient: Greater than 30
[2020-07-29 12:58] LABS: Glucose,Whole Blood 163 mg/dL (75-99)
[2020-07-29] MEDS: NOREPINEPHRINE 4 MG in SODIUM CHLORIDE 0.9% 250 ML IV SCH (13:04)
--- NOTE | 2020-07-29 13:05 | US ---
EXAMINATION TYPE: US carotid duplex BILAT DATE OF EXAM: 07/29/2020 COMPARISON: NONE CLINICAL HISTORY: stroke. Very limited examination. Patient has an IV line in the right neck unable t o see vessels on that side. Patient on a vent attempted to do the left side very difficult due to pat ient positon and she started to lift up her head. Was able to get some velocities not a very diagnost ic study.Vertebrals not visualized. EXAM MEASUREMENTS: RIGHT: Peak Systolic Velocity (PSV) cm/sec ----- Right CCA: ----- Right ICA: ----- Right ECA: ICA/CCA ratio: RIGHT: End Diastole cm/sec ----- Right CCA: ----- Right ICA: ----- Right ECA: LEFT: Peak Systolic Velocity (PSV) cm/sec ----- Left CCA: 96.4 ----- Left ICA: 145.2 ----- Left ECA: Unable to obtain. ICA/CCA ratio: 1.5 LEFT: End Diastole cm/sec ----- Left CCA: 24.7 ----- Left ICA: 35.2 ----- Left ECA: VERTEBRALS (direction of flow): Right Vertebral: Left Vertebral: Rhythm: IMPRESSION: Limited study as noted above. Criteria for Assigning % of Stenosis / Diameter reduction (Estimation based on the indirect measurements of the internal carotid artery velocities (ICA PSV). 1. Normal (no stenosis)=ICA PSV < 125 cm/s: ratio < 2.0: ICA EDV<40 cm/s. 2. Less than 50% stenosis=ICA PSV < 125 cm/s: ratio < 2.0: ICA EDV<40 cm/s. 3. 50 to 69% stenosis=ICA PSV of 125 to 230 cm/s: ration 2.0 ? 4.0: ICA EDV 40-100 cm/s. 4. Greater than 70% stenosis to near occlusion= ICA PSV > 230 cm/s: ratio > 4.0: ICA EDV > 100 cm/s. 5. Near occlusion= ICA PSV velocities may be low or undetectable: variable ratio and ICA EDV. 6. Total occlusion=unable to detect flow.
--- NOTE | 2020-07-29 13:33 | P.PN ---
Progress Note - Text Progress Note Date: 07/29/20 Chief Complaint: Chest pain History of presenting complaint: This is a pleasant 75-year-old patient of Dr. Derrick Neal. Chronic stable medical conditions include COPD, hyperlipidemia, hypertension, ostial arthritis, lung cancer 6 years ago, peripheral artery disease, coronary artery stent, peripheral stents, anxiety depression. Patient presented after she was having central chest pressure at home then went to both the shoulder blades for the arms. Patient became nauseated. No dizziness or lightheadedness. She shortness of breath. No perspiration. Symptoms most lost about 40 minutes she was taken to [facility]. She was similar episode about 2 weeks ago. Transferred down here. Has some lower extremity edema Admitted with unstable angina. underwent cardiac catheterization. Found to have severe triple-vessel coronary artery disease. July 27-underwent coronary bypass 3, ligation of left atrial appendage. Today-ICU- ventilator: FiO2 60 with PEEP of 5. Congestive chest tube removed. Has pleural chest tube. . Intubated. Drips include Cleviprex, Precedex, insulin. Oral G-tube. Propofol and levo fed had been held off. Patient slightly overweight. Sinus rhythm. 2 feeding is on hold. Ordered a unit of blood. Review of systems: Patient intubated Active Medications Hydrocodone Bitart/Acetaminophen (Hydrocodone/Apap 5-325mg 1 Each Tab) 2 each PO Q4HR PRN PRN Reason: Severe Pain Last Admin: 07/28/20 17:11 Dose: 2 each Documented by: Hydrocodone Bitart/Acetaminophen (Hydrocodone/Apap 5-325mg 1 Each Tab) 1 each PO Q4HR PRN PRN Reason: Moderate Pain Albuterol/Ipratropium (Ipratropium-Albuterol 3 Ml Neb) 3 ml INHALATION RT-Q2H PRN PRN Reason: Shortness Of Breath Or Wheezing Albuterol/Ipratropium (Ipratropium-Albuterol 3 Ml Neb) 3 ml INHALATION RT-QID [facility] Last Admin: 07/29/20 12:37 Dose: 3 ml Documented by: Aspirin (Aspirin 325 Mg Tab) 325 mg PO DAILY [facility] Last Admin: 07/29/20 09:36 Dose: 325 mg Documented by: Atorvastatin Calcium (Atorvastatin 80 Mg Tab) 80 mg PO HS [facility] Last Admin: 07/28/20 22:11 Dose: 80 mg Documented by: Benzocaine/Menthol (Benzocaine/Menthol Lozeng 1 Each Lozenge) 1 each MUCOUS MEM Q2H PRN PRN Reason: Sore Throat Bisacodyl (Bisacodyl 10 Mg Supp) 10 mg RECTAL DAILY PRN PRN Reason: Constipation Clopidogrel Bisulfate (Clopidogrel 75 Mg Tab) 75 mg PO DAILY [facility] Last Admin: 07/29/20 09:36 Dose: 75 mg Documented by: Ezetimibe (Ezetimibe 10 Mg Tab) 10 mg PO HS [facility] Last Admin: 07/28/20 22:10 Dose: 10 mg Documented by: Heparin Sodium (Porcine) (Heparin Sodium,Porcine 5,000 Unit/Ml 1 Ml Vial) 5,000 unit SQ Q8HR [facility] Last Admin: 07/29/20 09:36 Dose: 5,000 unit Documented by: Norepinephrine Bitartrate 4 mg (/ Sodium Chloride) 254 mls @ 15.754 mls/hr IV .Q16H8M [facility]; Protocol Last Admin: 07/29/20 13:04 Dose: 0.09 mcg/kg/min, 28.358 mls/hr Documented by: Amiodarone HCl 150 mg/ (Dextrose/Water) 103 mls @ 618 mls/hr IV .Q10M PRN; Protocol PRN Reason: A.FIB/FLUTTER Amiodarone HCl 360 mg/ (Dextrose/Water) 207.2 mls @ 34.533 mls/hr IV .Q6H PRN; Protocol PRN Reason: A.FIB/FLUTTER Amiodarone HCl 450 mg/ (Dextrose/Water) 250 mls @ 16.667 mls/hr IV .Q15H PRN; Protocol PRN Reason: A.FIB/FLUTTER Albumin Human 250 ml/ IV (Solution) 250 mls @ 250 mls/hr IVPB Q1HR PRN PRN Reason: For Volume Stop: 07/29/20 14:16 Lactated Ringer's (Lactated Ringers) 1,000 mls @ 20 mls/hr IV .Q24H [facility] Last Admin: 07/29/20 06:21 Dose: 50 mls/hr Documented by: Calcium Gluconate 2 gm/ Sodium (Chloride) 120 mls @ 100 mls/hr IVPB ONCE PRN PRN Reason: Ionized Calcium less than 4.4 Stop: 08/06/20 14:16 Insulin Human Regular 100 unit (/ Sodium Chloride) 101 mls @ 0 mls/hr IV .Q0M [facility]; Protocol Last Titration: 07/29/20 12:20 Dose: 1.5 units/hr, 1.515 mls/hr Documented by: Propofol 500 mg/ IV Solution 50 mls @ 0 mls/hr IV .Q0M [facility]; Protocol Last Admin: 07/29/20 13:02 Dose: 40 mcg/kg/min, 21.192 mls/hr Documented by: Dexmedetomidine HCl 400 mcg/ (IV Solution) 100 mls @ 0 mls/hr IV .Q0M [facility]; Protocol Stop: 07/30/20 08:10 Last Titration: 07/29/20 12:48 Dose: 1 mcg/kg/hr, 22.075 mls/hr Documented by: Levetiracetam 500 mg/ Sodium (Chloride) 105 mls @ 400 mls/hr IVPB Q12HR [facility] Ketorolac Tromethamine (Ketorolac 15 Mg/Ml 1 Ml Vial) 15 mg IVP Q6HR [facility] Stop: 07/30/20 16:21 Last Admin: 07/29/20 13:02 Dose: 15 mg Documented by: Magnesium Hydroxide (Magnesium Hydroxide 2,400 Mg/10 Ml Cup) 2,400 mg PO BID PRN PRN Reason: Constipation Metoclopramide HCl (Metoclopramide 5 Mg/Ml 2 Ml Vial) 10 mg IVP Q4H PRN PRN Reason: Nausea And Vomiting Metoprolol Tartrate (Metoprolol Tartrate 12.5 Mg Tab) 12.5 mg PO BID [facility] Last Admin: 07/29/20 09:36 Dose: 12.5 mg Documented by: Miscellaneous Information (Potassium Replacement Protocol 1 Each Misc) 1 each MISCELLANE DAILY PRN; Protocol PRN Reason: Per Protocol Miscellaneous Information (Magnesium Replacement Protocol 1 Each Misc) 1 each MISCELLANE DAILY PRN; Protocol PRN Reason: Per Protocol Miscellaneous Information (Phosphorus Replacement Protoco 1 Each Misc) 1 each MISCELLANE DAILY PRN; Protocol PRN Reason: Per Protocol Ondansetron HCl (Ondansetron 4 Mg/2 Ml Vial) 4 mg IVP Q6HR PRN PRN Reason: Nausea And Vomiting Pantoprazole Sodium (Pantoprazole 40 Mg/10 Ml Vial) 40 mg IVP DAILY [facility] Last Admin: 07/29/20 09:36 Dose: 40 mg Documented by: Senna/Docusate Sodium (Sennosides-Docusate Sodium 1 Each Tab) 2 each PO HS [facility] Last Admin: 07/28/20 22:10 Dose: 2 each Documented by: Sertraline HCl (Sertraline 100 Mg Tab) 100 mg PO DAILY [facility] Last Admin: 07/29/20 09:36 Dose: 100 mg Documented by: Sodium Chloride (Sodium Chloride 0.9% Flush 10 Ml Syringe) 10 ml IV BID [facility] Last Admin: 07/29/20 09:37 Dose: 10 ml Documented by: Past medical history to include: CHF, COPD, hyperlipidemia, hypertension, coronary artery disease with stent, osteoporosis, lung cancer 6 years ago, peripheral arterial disease, anxiety depression Social history: Lives with her son. Smoked a pack a day since the teenage years. Stop in 2011. Some alcohol in the past Physical examination: VITAL SIGNS: 99.6, 71, 21, 103/43, 95% on the ventilator GENERAL: Laying in bed, intubated, awake EYES: Pupils equal. Conjunctiva normal. HEENT: External appearance of nose and ears normal, oral cavity endotracheal tube. NECK: JVD unable to assess; masses not palpable. HEART: First and second heart sounds are normal; no edema. LUNGS: Respiratory rate increased; decreased breath sounds. Chest: 2 mediastinal and one left pleural chest tube ABDOMEN: Soft, nontender, liver spleen not palpable, no masses palpable. Da Silva catheter PSYCH: Unable to assess MUSCULOSKELETAL: Evidence of OA Investigations: July 29: White count 11.5 hemoglobin 6.9 platelets 210 July 28: White count 10.7 hemoglobin 7.4 platelets 195 potassium 3.9 creatinine 0.58 July 27: Incontinent 12.6 hemoglobin 7.7 platelets 199 potassium 4.5 creatinine 0.56 albumin 3.3 July 22: Potassium 4.1 creatinine 0.97 proBNP 1270 Cardiac mzbliwnicceoxez-yowehn-hyaenm disease 2-D echocardiogram-moderate concentric LVH, EF 50-55% hypokinetic galicia Troponin I 0.018, 0.012 Coronavirus [PCR]-not detected EKG tracing personally reviewed by me-normal sinus rhythm, PVC Assessment and plan: -Coronary artery bypass [id number] July 27. On Plavix, Lopressor, Zetia -Acute postprocedure blood loss anemia, as expected from surgery, being transfused 1 unit of blood -Hypotensive shock from volume loss patient was on levo fed currently held -Unstable angina, POA -Triple-vessel coronary artery disease on cardiac catheterization. Plavix, Lopressor, Zetia -Acute on chronic congestive heart diastolic dysfunction EF 50-55% received IV Lasix. Stabilized. Follow clinically -COPD in a previous smoker, on DuoNeb -Hyperlipidemia, continue Lipitor -Essential hypertension, follow closely -Primary osteoarthritis, take Tylenol when necessary -History of lung cancer 6 years ago -Peripheral arterial disease with stenting, on aspirin and Plavix -Anxiety depression otherwise specified-on Zoloft -Chronic insomnia continue with melatonin Patient is in the ICU. Continue with Precedex, insulin, Cleviprex. 2. Hold. Getting a unit of blood.
[2020-07-29 15:10] LABS: Glucose,Whole Blood 121 mg/dL (75-99)
[2020-07-29 16:24] LABS: Glucose,Whole Blood 124 mg/dL (75-99)
--- NOTE | 2020-07-29 17:35 | EEG ---
ELECTROENCEPHALOGRAM REPORT DATE OF SERVICE: 07/29/2020 CLINICAL HISTORY: This is a 75-year-old woman who has altered mental status. The video EEG is obtained to evaluate for seizure and epileptiform activity. RELEVANT MEDICATION: Patient is on IV propofol and is on Keppra. EEG TYPE: A routine 21 channel EEG is performed with video using the 10/20 electrode placement system. DESCRIPTION: The patient is intubated on a ventilator and is on IV propofol 40 mcg per kg per minute. The background consists of burst and suppression activity throughout the study. During the burst activity, the background is delta to theta activity followed by suppression lasting 1-2 seconds. There is no focal slowing seen during the study. Interictal and ictal is none. ACTIVATION PROCEDURE: Photic stimulation did not evoke a posterior driving response. Hyperventilation is not performed. CLINICAL INTERPRETATION: This is an abnormal routine EEG. This study is composed of burst and suppression activity likely due to medication effect (propofol). There are no focal slowing, or obvious epileptiform activity. Clinical correlation is recommended. MMMONICA / GINGERN: [id number] / MTDD
[2020-07-29 17:49] LABS: Glucose,Whole Blood 135 mg/dL (75-99)
[2020-07-29 18:41] LABS: Glucose,Whole Blood 116 mg/dL (75-99)
[2020-07-29 19:56] LABS: Glucose,Whole Blood 140 mg/dL (75-99)
[2020-07-29] MEDS: SENNOSIDES-DOCUSATE SODIUM 1 EACH TAB PO SCH (20:33)
[2020-07-29] MEDS: ATORVASTATIN 80 MG TAB PO SCH (20:33)
[2020-07-29] MEDS: levETIRAcetam IV 500 MG in SODIUM CHLORIDE 0.9% 100 ML IVPB SCH (20:33)
[2020-07-29] MEDS: EZETIMIBE 10 MG TAB PO SCH (20:34)
[2020-07-29] MEDS ORDERED: CHLORHEXIDINE GLUCONATE 15 ML CUP MUCOUS MEM ONE (21:19)
[2020-07-29 22:13] LABS: Glucose,Whole Blood 117 mg/dL (75-99)
[2020-07-29 23:45] LABS: Glucose,Whole Blood 118 mg/dL (75-99)
[2020-07-30] MEDS: KETOROLAC 15 MG/ML 1 ML VIAL IVP SCH ×3 (00:39→12:32)
[2020-07-30] MEDS: HEPARIN SODIUM,PORCINE 5,000 UNIT/ML 1 ML VIAL SQ SCH ×3 (00:40→15:42)
[2020-07-30] MEDS: LACTATED RINGERS 1,000 ML IV SCH (00:50)
[2020-07-30 02:39] LABS: Glucose,Whole Blood 125 mg/dL (75-99)
[2020-07-30 03:48] LABS: Glucose,Whole Blood 137 mg/dL (75-99)
[2020-07-30 04:19] LABS: Basophils % (A) 0 %; Eosinophils # (A) 0.2 k/uL (0-0.7); Eosinophils % (A) 1 %; HCT 23.5 % (34.0-46.0); Lymphocytes # (A) 1.9 k/uL (1.0-4.8); Lymphocytes % (A) 15 %; MCH 30.8 pg (25.0-35.0); MCHC 34.1 g/dL (31.0-37.0); MCV 90.4 fL (80.0-100.0); Mean Platelet Volume 8.3; Monocytes # (A) 0.8 k/uL (0-1.0); Monocytes % (A) 6 %; Neutrophils # (A) 9.8 k/uL (1.3-7.7); Neutrophils % (A) 77 %; Platelet Count 210 k/uL (150-450); RDW 13.6 % (11.5-15.5); WBC 12.8 k/uL (3.8-10.6)
[2020-07-30 04:36] LABS: ALT 35 U/L (4-34); AST 94 U/L (14-36); African American GFR (CKD) >90 (>60 ml/min/1.73 sqM); Albumin 2.9 g/dL (3.5-5.0); Alkaline Phosphatase 54 U/L (38-126); Anion Gap 5 mmol/L; Blood Urea Nitrogen 33 mg/dL (7-17); Calcium 8.1 mg/dL (8.4-10.2); Carbon Dioxide 27 mmol/L (22-30); Chloride 107 mmol/L (98-107); Glucose 128 mg/dL (74-99); Non-African American GFR(CKD) 87 (>60 ml/min/1.73 sqM); Potassium 3.6 mmol/L (3.5-5.1); Sodium 139 mmol/L (137-145); Total Bilirubin 0.8 mg/dL (0.2-1.3); Total Protein 4.9 g/dL (6.3-8.2)
[2020-07-30] MEDS ORDERED: POTASSIUM BICARBONATE/CIT AC 20 MEQ TABLET.EFF NG-TUBE SCH (05:00)
[2020-07-30 05:44] LABS: ABG Base Excess 2.7 mmol/L; ABG HCO3 27 mmol/L (21-25); ABG Oxygen Saturation 98.7 % (94-97); ABG PCO2 40 mmHg (35-45); ABG PH 7.44 (7.35-7.45); ABG PO2 99 mmHg (83-108); ABG TCO2 28 mmol/L (19-24); Allen Test Performed? Yes
[2020-07-30 06:27] LABS: Glucose,Whole Blood 128 mg/dL (75-99)
--- NOTE | 2020-07-30 07:37 | XR ---
EXAMINATION TYPE: XR chest 1V portable DATE OF EXAM: 07/30/2020 COMPARISON: Chest x-ray 07/29/2020 HISTORY: Status post cardiac surgery TECHNIQUE: Single frontal view of the chest is obtained. FINDINGS: Endotracheal tube, orogastric tube, left chest tube remain in place, there are overlying l wanda, artifacts. No evident pneumothorax. Patchy bibasilar density persists. Lung volumes are low. Pa tient is rotated. Cardiomediastinal silhouette is not significantly changed. Patient is post median s ternotomy and left atrial appendage clip placement. Thoracic cord stimulator lead again noted. IMPRESSION: Correlate for atelectasis versus edema, pneumonia not excluded. Difficult to exclude sma ll effusion.
[2020-07-30] MEDS: IPRATROPIUM-ALBUTEROL 3 ML NEB INHALATION SCH ×4 (08:04→18:44)
[2020-07-30 08:19] LABS: Glucose,Whole Blood 131 mg/dL (75-99)
[2020-07-30] MEDS: NOREPINEPHRINE 4 MG in SODIUM CHLORIDE 0.9% 250 ML IV SCH (08:19)
[2020-07-30] MEDS: CLOPIDOGREL 75 MG TAB PO SCH (08:22)
[2020-07-30] MEDS: METOPROLOL TARTRATE 12.5 MG TAB PO SCH ×2 (08:22→20:14)
[2020-07-30] MEDS: PANTOPRAZOLE 40 MG/10 ML VIAL IVP SCH (08:22)
[2020-07-30] MEDS: levETIRAcetam IV 500 MG in SODIUM CHLORIDE 0.9% 100 ML IVPB SCH ×2 (08:22→20:15)
[2020-07-30] MEDS: SERTRALINE 100 MG TAB PO SCH (08:22)
[2020-07-30] MEDS: ASPIRIN 325 MG TAB PO SCH (08:23)
--- NOTE | 2020-07-30 08:49 | P.PN ---
Subjective Progress Note Date: 07/30/20 Principal diagnosis: Triple-vessel coronary artery disease, unstable angina. History of coronary artery disease with previous myocardial infarction and stent placement, peripheral arterial disease with lower extremity stenting, lung cancer status post right lower lobectomy in 2012, hypertension, hyperlipidemia, COPD with previous tobacco dependence, anxiety/depression, family history of premature coronary artery disease, significant plaque formation more than 75% stenosis at the origins of both internal and external carotid arteries bilaterally on CTA POD #3 coronary artery bypass grafting 3 vessels, left internal mammary artery to the left anterior descending artery, reverse saphenous vein graft to the obtuse marginal artery, reverse saphenous vein graft to the posterior descending artery, endoscopic harvesting of the right greater saphenous vein, ligation of the left atrial appendage using a 35 mm AtriClip, epi-aortic ultrasound and intraoperative transesophageal echocardiogram Postoperative acute blood loss anemia, expected given hemodilution and cardiopulmonary bypass pump Postoperative right acute/subacute cerebellar infarct on brain CT, unexpected, although possible complication of any open heart surgery, especially given patient's known history of significant arterial disease Prolonged mechanical ventilation, unexpected, secondary to acute stroke The patient was seen and examined at the bedside with Dr. Moffett. She is currently sedated with propofol on mechanical ventilation. Repeat CT of the brain was completed yesterday demonstrating no significant change. EEG was also completed with reports of burst and suppression activity likely due to propofol, no focal slowing or obvious epileptiform activity. Patient was placed on IV Keppra per neurology. Hemoglobin was 6.9 yesterday, patient received 1 unit packed red blood cells followed by IV Lasix with diuresis and hemoglobin this morning 8.0. She remains in sinus rhythm. Currently hypotensive requiring Levophed. Left pleural chest tubes, right internal jugular Cordis, right radial arterial line remain present. Unable to follow any commands or respond at this time secondary to propofol sedation, pupils are equal and reactive 3 mm. Patient was very restless, a synchronous with the ventilator, hypertensive and tachypnea With desaturation yesterday off propofol per nursing. 2 bleeding continues. Son's Osmany and Christian updated yesterday. Objective - Vital Signs Vital signs: Vital Signs Temp 98.4 F 07/30/20 04:00 Pulse 65 07/30/20 08:04 Resp 16 07/30/20 07:00 BP 126/48 07/29/20 15:21 Pulse Ox 96 07/30/20 07:00 Intake & Output 07/29/20 07/30/20 07/30/20 18:59 06:59 18:59 Intake Total 6549.396 4139.543 203.523 Output Total 810 505 55 Balance 467.439 562.543 148.523 Weight 92.5 kg Intake: IV 380 377 26 Lactated Ringers 1,000 ml 280 220 20 @ 20 mls/hr IV .Q24H [facility] Rx#:[id number] levETIRAcetam IV 1,500 mg 100 100 In Saline 1 100ml.bag @ 400 mls/hr IVPB ONCE STA Rx#:[id number] pressure bag 57 6 Intake, IV Titration 457.439 270.543 147.523 Amount Dexmedetomidine/0.9% NaCl 5.004 (Pmx) 400 mcg In Empty Bag 1 bag @ Titrate IV . Q0M [facility] Rx#:[id number] Insulin Regular 100 unit 4.536 0 In Sodium Chloride 0.9% 100 ml @ Per Protocol IV .Q0M [facility] Rx#:[id number] Norepinephrine 4 mg In 359.560 42.485 97.523 Sodium Chloride 0.9% 250 ml @ 0.05 MCG/KG/MIN 15. 754 mls/hr IV .Q16H8M [facility] Rx#:[id number] propofoL 500 mg In Empty 88.339 228.058 50 Bag 1 bag @ Titrate IV . Q0M [facility] Rx#:[id number] Tube Feeding 100 330 30 Blood Product 310 Rc As-1 Unit 310 [id number] Other 30 90 Output: Chest Tube Drainage 170 20 Left Lateral Chest 170 20 Urine 810 335 35 Other: Voiding Method Indwelling Catheter Indwelling Catheter ABP, PAP, CO, CI - Last Documented Arterial Blood Pressure 111/49 Pulmonary Artery Pressure 40/20 Cardiac Output 4.3 Cardiac Index 2.2 - Constitutional Constitutional Comment(s): Sedated with propofol on mechanical ventilation - Respiratory Details: Lungs sounds diminished bilaterally. Respirations even, nonlabored on mechanical ventilation. Current ventilator settings FiO2 60%, tidal volume 400, respiratory rate 16, PEEP 5. ABG this morning on those settings 7.44/40/ 99/27/98%/2.7. 8.0 ET tube present, 22 at the lip. Left pleural chest tube present to continuous wall suction, 60 mL serosanguineous drainage overnight, 200 mL in the last 24 hours, no air leak present. - Cardiovascular Details: S1, S2 present. Regular rate and rhythm, sinus rhythm on telemetry. Sternum stable. A/V epicardial pacemaker wires present, connected to generator, AAI mode with backup rate 50 bpm. Palpable peripheral pulses bilaterally. No edema present. No calf pain or tenderness noted. Heart hugger, antiembolism stockings, SCDs present. Right internal jugular Cordis, right radial arterial line present. Remains on IV Levophed for hypotension - Gastrointestinal Gastrointestinal Comment(s): Abdomen soft, nontender, nondistended. Active bowel sounds present 4 quadrants. OG tube present with trickle tube feeding infusing - Genitourinary Genitourinary Comment(s): Da Silva present draining clear, yellow urine. Output 15-30 mL/h overnight, 500 mL after IV Lasix given yesterday. - Integumentary Integumentary Comment(s): Skin is warm and dry with evidence of good perfusion. Anterior chest incision well approximated and covered with dry intact dressing. Right lower extremity EVH site well approximated without redness or drainage. - Neurologic Neurologic Comment(s): Unable to assess this time due to heavy sedation with propofol - Psychiatric Psychiatric Comment(s): Unable to assess at this time due to heavy sedation with propofol - Allied health notes Allied health notes reviewed: nursing - Labs CBC & Chem 7: 07/30/20 03:48 07/30/20 03:48 Labs: Abnormal Lab Results - Last 24 Hours (Table) 07/26/20 07/29/20 07/29/20 Range/Units 07:12 10:02 10:45 WBC (3.8-10.6) k/uL RBC (3.80-5.40) m/uL Hgb (11.4-16.0) gm/dL Hct (34.0-46.0) % Neutrophils # (1.3-7.7) k/uL ABG HCO3 (21-25) mmol/L ABG Total CO2 (19-24) mmol/L ABG O2 Saturation (94-97) % BUN (7-17) mg/dL Glucose (74-99) mg/dL POC Glucose (mg/dL) 131 H (75-99) mg/dL Calcium (8.4-10.2) mg/dL AST (14-36) U/L ALT (4-34) U/L Total Protein (6.3-8.2) g/dL Albumin (3.5-5.0) g/dL Crossmatch See Detail See Detail 07/29/20 07/29/20 07/29/20 Range/Units 11:22 12:19 12:56 WBC (3.8-10.6) k/uL RBC (3.80-5.40) m/uL Hgb (11.4-16.0) gm/dL Hct (34.0-46.0) % Neutrophils # (1.3-7.7) k/uL ABG HCO3 (21-25) mmol/L ABG Total CO2 (19-24) mmol/L ABG O2 Saturation (94-97) % BUN (7-17) mg/dL Glucose (74-99) mg/dL POC Glucose (mg/dL) 150 H 161 H 163 H (75-99) mg/dL Calcium (8.4-10.2) mg/dL AST (14-36) U/L ALT (4-34) U/L Total Protein (6.3-8.2) g/dL Albumin (3.5-5.0) g/dL Crossmatch 07/29/20 07/29/20 07/29/20 Range/Units 15:08 16:23 17:47 WBC (3.8-10.6) k/uL RBC (3.80-5.40) m/uL Hgb (11.4-16.0) gm/dL Hct (34.0-46.0) % Neutrophils # (1.3-7.7) k/uL ABG HCO3 (21-25) mmol/L ABG Total CO2 (19-24) mmol/L ABG O2 Saturation (94-97) % BUN (7-17) mg/dL Glucose (74-99) mg/dL POC Glucose (mg/dL) 121 H 124 H 135 H (75-99) mg/dL Calcium (8.4-10.2) mg/dL AST (14-36) U/L ALT (4-34) U/L Total Protein (6.3-8.2) g/dL Albumin (3.5-5.0) g/dL Crossmatch 07/29/20 07/29/20 07/29/20 Range/Units 18:39 19:54 22:12 WBC (3.8-10.6) k/uL RBC (3.80-5.40) m/uL Hgb (11.4-16.0) gm/dL Hct (34.0-46.0) % Neutrophils # (1.3-7.7) k/uL ABG HCO3 (21-25) mmol/L ABG Total CO2 (19-24) mmol/L ABG O2 Saturation (94-97) % BUN (7-17) mg/dL Glucose (74-99) mg/dL POC Glucose (mg/dL) 116 H 140 H 117 H (75-99) mg/dL Calcium (8.4-10.2) mg/dL AST (14-36) U/L ALT (4-34) U/L Total Protein (6.3-8.2) g/dL Albumin (3.5-5.0) g/dL Crossmatch 07/29/20 07/30/20 07/30/20 Range/Units 23:43 02:37 03:47 WBC (3.8-10.6) k/uL RBC (3.80-5.40) m/uL Hgb (11.4-16.0) gm/dL Hct (34.0-46.0) % Neutrophils # (1.3-7.7) k/uL ABG HCO3 (21-25) mmol/L ABG Total CO2 (19-24) mmol/L ABG O2 Saturation (94-97) % BUN (7-17) mg/dL Glucose (74-99) mg/dL POC Glucose (mg/dL) 118 H 125 H 137 H (75-99) mg/dL Calcium (8.4-10.2) mg/dL AST (14-36) U/L ALT (4-34) U/L Total Protein (6.3-8.2) g/dL Albumin (3.5-5.0) g/dL Crossmatch 07/30/20 07/30/20 07/30/20 Range/Units 03:48 03:48 05:40 WBC 12.8 H (3.8-10.6) k/uL RBC 2.60 L (3.80-5.40) m/uL Hgb 8.0 L (11.4-16.0) gm/dL Hct 23.5 L (34.0-46.0) % Neutrophils # 9.8 H (1.3-7.7) k/uL ABG HCO3 27 H (21-25) mmol/L ABG Total CO2 28 H (19-24) mmol/L ABG O2 Saturation 98.7 H (94-97) % BUN 33 H (7-17) mg/dL Glucose 128 H (74-99) mg/dL POC Glucose (mg/dL) (75-99) mg/dL Calcium 8.1 L (8.4-10.2) mg/dL AST 94 H (14-36) U/L ALT 35 H (4-34) U/L Total Protein 4.9 L (6.3-8.2) g/dL Albumin 2.9 L (3.5-5.0) g/dL Crossmatch 07/30/20 07/30/20 Range/Units 06:25 08:17 WBC (3.8-10.6) k/uL RBC (3.80-5.40) m/uL Hgb (11.4-16.0) gm/dL Hct (34.0-46.0) % Neutrophils # (1.3-7.7) k/uL ABG HCO3 (21-25) mmol/L ABG Total CO2 (19-24) mmol/L ABG O2 Saturation (94-97) % BUN (7-17) mg/dL Glucose (74-99) mg/dL POC Glucose (mg/dL) 128 H 131 H (75-99) mg/dL Calcium (8.4-10.2) mg/dL AST (14-36) U/L ALT (4-34) U/L Total Protein (6.3-8.2) g/dL Albumin (3.5-5.0) g/dL Crossmatch - Imaging and Cardiology Chest x-ray: report reviewed, image reviewed Assessment and Plan Assessment: 1. Triple-vessel coronary artery disease, unstable angina, status post three- vessel CABG 2. History of coronary artery disease with previous myocardial infarction and stent placement 3. Peripheral arterial disease with lower extremity stenting 4. History of lung cancer status post right lower lobectomy 5. Hypertension, currently hypotensive requiring IV pressors 6. Hyperlipidemia, treated, cholesterol 152, LDL 85 7. COPD with previous tobacco dependence, preoperative FEV1 82% of predicted 8. Anxiety/depression 9. Family history of premature coronary artery disease 10. Postoperative acute blood loss anemia, expected, status post 1 unit packed red blood cell transfusion 11. Postoperative acute/subacute right cerebellar infarct, unexpected 12. Bilateral internal carotid artery disease greater than 75% present on CTA 13. Prolonged mechanical ventilation Plan: 1. Continue ASA, statin, Plavix, beta tran. Will increase beta tran therapy as tolerated 2. Wean levo as tolerated. 3. Mechanical ventilation per pulmonology. May wean to extubate when able. Bronchodilators per pulmonology 4. Neurology consulted, appreciate recommendations. Neuro checks every hour 5. Once extubated will increase activity as tolerated, work to improve movement on the left side. PT/OT/cardiac rehab consulted 6. Once extubated will encourage incentive spirometry use 7. Will monitor daily labs and x-rays. Electrolyte replacement per protocol. 8. GI/DVT prophylaxis 9. Pain control is current medication regimen 10. Will discontinue left pleural chest tube 11. Will continue Da Silva catheter 12. Strict accurate intake and output. Daily weights 13. Limit sedation to be able to assess neuro status, prefer Precedex versus pr opofol 14. Dobhoff placed, will obtain chest x-ray for placement 15. Will update patient's family daily 16. Social work consulted as patient will need rehab at discharge 17. More recommendations to follow based on patient's clinical course Time with Patient: Greater than 30
--- NOTE | 2020-07-30 09:10 | XR ---
EXAMINATION TYPE: XR chest 1V portable DATE OF EXAM: 07/30/2020 COMPARISON: 07/30/2020 INDICATION: Dobbhoff placement TECHNIQUE: Single frontal view of the chest is obtained. FINDINGS: The heart size is normal. The pulmonary vasculature is normal. There is some perihilar infiltrate on the right along the right base. A small right pleural effusion is present. Left-sided chest tube is present. No pneumothorax is evident. Endotracheal tube tip is above the brynn na. The patient is rotated to the right. There is placement of a Dobbhoff adjacent to nasogastric tub e. The tip is within the proximal abdomen should be advanced. Epicardial leads appear to be present o jc the right liver and the diaphragm. IMPRESSION: 1. Dobbhoff tip is within the proximal and can be advanced. 2. Right perihilar and lower lobe infiltrate with small right pleural effusion.
--- NOTE | 2020-07-30 10:46 | P.PN ---
Subjective Progress Note Date: 07/30/20 Principal diagnosis: Status post three-vessel bypass grafting. Patient was reevaluated today on 07/28/2020, remains intubated and mechanically ventilated. Patient is now on assist control mode of mechanical ventilation with a rate of 16, volume is 450 FiO2 is 50% and PEEP of 5. Unfortunately the patient was noted to have poor movement of her left upper and left lower extremity last night, CT of the head last night showed acute/subacute area of infarction in the right cerebellum along with probable area of chronic infarction in the right parietal region I evaluated the patient this morning, seems to be extremely restless and agitated, seems to be neglecting the left side, and both eyes are deviated to the right and upwards. Patient seems to be moving her right side quite well, however the left side seems to be relatively weak although she was squeezing my hand with her left hand. And minimal movement noted in the left lower extremity. Patient is on Precedex, and seems to be agitated in spite of Precedex. Her ventilatory settings are reasonable, ABG is reasonable, patient is basically extubate overall, however her mental status is a bit concerning specially with her extreme agitation, keeps pulling and shaking the railing of the bed on the right side. Patient was given Ativan, and I have recommended increasing Precedex. She is not truly quite ready to be extubated today. Again my major concern is her mental status. And she is yet to be seen by neurology on consultation. Blood pressure is quite high, 160 systolic, norepinephrine was discontinued during my evaluation. She was on a very minimal dose of 0.1 mcg/kg/m of norepinephrine patient was also on milrinone. CBC is relatively normal hemoglobin is 7.4. ABG this morning showed a pO2 of 92 pCO2 of 38 pH of 7.45. This was on 50% FiO2. Electrolytes and renal profile are normal. Chest x-ray showed mostly postoperative changes of CABG 07/29/2020, I'm seeing the patient for a follow-up in the intensive care unit. This morning the patient is heavily sedated with propofol and she is calm and comfortable. Unfortunately with that, neurologic examination is not possible. I would suggest gradually cutting down the propofol and assess her neuro status and if needed utilize Precedex as an alternative sedative drip. Meanwhile, the patient remains essentially with enema to severe with a low dose of norepinephrine infusion running at 0.06 mcg/kg per minute. She has an adequate urine output. Cardiac rhythm is sinus. She has a left pleural and mediastinal chest tubes and output from those are in order of minimal, less than 100 over the past 24 hours. The chest x-ray showing cardiomegaly. There is some kyphoscoliosis of the chest. Chest tubes are in good location. ET tube is in good location. Atelectatic changes and some mild four-vessel congestion. Meanwhile, the patient's vent settings include an assist-control mode at the rate of 16 with a tidal volume of 450 and FiO2 of 40% with a PEEP of 5. The blood gases from this morning showed a pH of 7.49 with a pCO2 of 36 and pO2 of 82. On today's blood work, the patient's hemoglobin is down to 6.9 from 7.4. Platelets is at 210. 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 Intracranial cerebral arteries were essentially patent with nothing significantly stenotic. During our limited neurologic evaluation, the patient did not do mistreat any withdrawal with to painful stimulation. No Babinski. No clonus. Nevertheless, I was told by the nursing staff that she was able to move her right side yesterday and her left side once off sedation. Pupils are equal and reactive to light and order of 3 mm. No preferential gaze on today's evaluation. A sedation holiday will be given. She is on enteral nutrition. No other drips. No seizure activity. Neurologist on the case. She is on aspirin, Plavix, and she also on metoprolol 12.5 mg by mouth twice a day. She is also on high-dose statins. Progress note dated 05/29/2021. Currently, this is a 75-year-old female who was admitted to the hospital on July 21. She went to the operating room, on July 27 for a three-vessel bypass grafting with Dr. Alan. The patient has never been extubated. Unfortunately, she developed a right cerebellar CVA. She remains on the mechanical ventilator. She is currently on the volume assist control mode, rate is 16, tidal volume 400, FiO2 60%, and PEEP of 5. The blood gases show a PaO2 of 99, a PaCO2 of 40, and a pH of 7.44. She also remains on lactated Ringer's at 20 mL an hour, propofol was turned off for the spontaneous breathing trial, and she's been weaned off of norepinephrine. She is receiving vital AF, at a rate of 30 mL an hour, with a goal of 57 mL an hour. We placed the patient on pressure support of 5 CPAP of 5, and stayed in the room to observe her response to the spontaneous breathing trial. Unfortunately, the patient's respiratory rate went up above 40, and a tidal volumes dropped down to 200 range. Her minute volume was quite high, and the patient was placed back on the volume assist control mode. After the failed spontaneous breathing trial, the patient's tidal volume was dropped down to 350, her FiO2 was decreased to 50%, and the peak level was increased from 5 to 8 cm water. White count is 12.8, hemoglobin 8, hematocrit 23.5, and platelet count 210,000. Blood gases have been reviewed. Sodium 139, potassium 3.6, chlorides 107, CO2 27, anion gap 5, BUN 33, and creatinine 0.64. Chest x-ray shows a right lower lobe infiltrate and my opinion. Objective - Vital Signs Vital signs: Vital Signs Temp 98.4 F 07/30/20 04:00 Pulse 68 07/30/20 08:15 Resp 16 07/30/20 07:00 BP 126/48 07/29/20 15:21 Pulse Ox 96 07/30/20 07:00 Intake & Output 07/29/20 07/30/20 07/30/20 18:59 06:59 18:59 Intake Total 3156.874 1664.543 210.234 Output Total 810 505 55 Balance 467.439 562.543 155.234 Weight 92.5 kg Intake: IV 380 377 26 Lactated Ringers 1,000 ml 280 220 20 @ 20 mls/hr IV .Q24H [facility] Rx#:[id number] levETIRAcetam IV 1,500 mg 100 100 In Saline 1 100ml.bag @ 400 mls/hr IVPB ONCE [facility] Rx#:[id number] pressure bag 57 6 Intake, IV Titration 457.439 270.543 154.234 Amount Dexmedetomidine/0.9% NaCl 5.004 (Pmx) 400 mcg In Empty Bag 1 bag @ Titrate IV . Q0M [facility] Rx#:[id number] Insulin Regular 100 unit 4.536 0 In Sodium Chloride 0.9% 100 ml @ Per Protocol IV .Q0M [facility] Rx#:[id number] Norepinephrine 4 mg In 359.560 42.485 97.523 Sodium Chloride 0.9% 250 ml @ 0.05 MCG/KG/MIN 15. 754 mls/hr IV .Q16H8M [facility] Rx#:[id number] propofoL 500 mg In Empty 88.339 228.058 56.711 Bag 1 bag @ Titrate IV . Q0M [facility] Rx#:[id number] Tube Feeding 100 330 30 Blood Product 310 Rc As-1 Unit 310 [id number] Other 30 90 Output: Chest Tube Drainage 170 20 Left Lateral Chest 170 20 Urine 810 335 35 Other: Voiding Method Indwelling Catheter Indwelling Catheter ABP, PAP, CO, CI - Last Documented Arterial Blood Pressure 111/49 Pulmonary Artery Pressure 40/20 Cardiac Output 4.3 Cardiac Index 2.2 - Exam The patient is poorly responsive, is sedated, and on mechanical ventilation. For the spontaneous breathing trial, the patient was off sedation, is still unresponsive. HEENT examination is grossly unremarkable. Mucous membranes are moist. There is a orally placed endotracheal tube, and nasogastric tube. Neck supple. Full range of motion. No adenopathy thyromegaly or neck vein distention. Cardiovascular examination reveals regular rhythm rate. S1-S2 normal. No S3 or S4. No discernible murmur noted. Heart sounds are distant. Lungs reveal bilateral rhonchi. No wheezes or crackles. Breath sounds equal bilaterally. Abdomen soft bowel sounds are heard. No masses or tenderness. Extremities are intact. No cyanosis clubbing or edema. Skin is without rash or lesion. Neurologic examination reveals a poorly responsive 75-year-old female, who does not move her left side. - Labs CBC & Chem 7: 07/30/20 03:48 07/30/20 03:48 Labs: Abnormal Lab Results - Last 24 Hours (Table) 07/26/20 07/29/20 07/29/20 Range/Units 07:12 10:45 11:22 WBC (3.8-10.6) k/uL RBC (3.80-5.40) m/uL Hgb (11.4-16.0) gm/dL Hct (34.0-46.0) % Neutrophils # (1.3-7.7) k/uL ABG HCO3 (21-25) mmol/L ABG Total CO2 (19-24) mmol/L ABG O2 Saturation (94-97) % BUN (7-17) mg/dL Glucose (74-99) mg/dL POC Glucose (mg/dL) 150 H (75-99) mg/dL Calcium (8.4-10.2) mg/dL AST (14-36) U/L ALT (4-34) U/L Total Protein (6.3-8.2) g/dL Albumin (3.5-5.0) g/dL Crossmatch See Detail See Detail 07/29/20 07/29/20 07/29/20 Range/Units 12:19 12:56 15:08 WBC (3.8-10.6) k/uL RBC (3.80-5.40) m/uL Hgb (11.4-16.0) gm/dL Hct (34.0-46.0) % Neutrophils # (1.3-7.7) k/uL ABG HCO3 (21-25) mmol/L ABG Total CO2 (19-24) mmol/L ABG O2 Saturation (94-97) % BUN (7-17) mg/dL Glucose (74-99) mg/dL POC Glucose (mg/dL) 161 H 163 H 121 H (75-99) mg/dL Calcium (8.4-10.2) mg/dL AST (14-36) U/L ALT (4-34) U/L Total Protein (6.3-8.2) g/dL Albumin (3.5-5.0) g/dL Crossmatch 07/29/20 07/29/20 07/29/20 Range/Units 16:23 17:47 18:39 WBC (3.8-10.6) k/uL RBC (3.80-5.40) m/uL Hgb (11.4-16.0) gm/dL Hct (34.0-46.0) % Neutrophils # (1.3-7.7) k/uL ABG HCO3 (21-25) mmol/L ABG Total CO2 (19-24) mmol/L ABG O2 Saturation (94-97) % BUN (7-17) mg/dL Glucose (74-99) mg/dL POC Glucose (mg/dL) 124 H 135 H 116 H (75-99) mg/dL Calcium (8.4-10.2) mg/dL AST (14-36) U/L ALT (4-34) U/L Total Protein (6.3-8.2) g/dL Albumin (3.5-5.0) g/dL Crossmatch 07/29/20 07/29/20 07/29/20 Range/Units 19:54 22:12 23:43 WBC (3.8-10.6) k/uL RBC (3.80-5.40) m/uL Hgb (11.4-16.0) gm/dL Hct (34.0-46.0) % Neutrophils # (1.3-7.7) k/uL ABG HCO3 (21-25) mmol/L ABG Total CO2 (19-24) mmol/L ABG O2 Saturation (94-97) % BUN (7-17) mg/dL Glucose (74-99) mg/dL POC Glucose (mg/dL) 140 H 117 H 118 H (75-99) mg/dL Calcium (8.4-10.2) mg/dL AST (14-36) U/L ALT (4-34) U/L Total Protein (6.3-8.2) g/dL Albumin (3.5-5.0) g/dL Crossmatch 07/30/20 07/30/20 07/30/20 Range/Units 02:37 03:47 03:48 WBC 12.8 H (3.8-10.6) k/uL RBC 2.60 L (3.80-5.40) m/uL Hgb 8.0 L (11.4-16.0) gm/dL Hct 23.5 L (34.0-46.0) % Neutrophils # 9.8 H (1.3-7.7) k/uL ABG HCO3 (21-25) mmol/L ABG Total CO2 (19-24) mmol/L ABG O2 Saturation (94-97) % BUN (7-17) mg/dL Glucose (74-99) mg/dL POC Glucose (mg/dL) 125 H 137 H (75-99) mg/dL Calcium (8.4-10.2) mg/dL AST (14-36) U/L ALT (4-34) U/L Total Protein (6.3-8.2) g/dL Albumin (3.5-5.0) g/dL Crossmatch 07/30/20 07/30/20 07/30/20 Range/Units 03:48 05:40 06:25 WBC (3.8-10.6) k/uL RBC (3.80-5.40) m/uL Hgb (11.4-16.0) gm/dL Hct (34.0-46.0) % Neutrophils # (1.3-7.7) k/uL ABG HCO3 27 H (21-25) mmol/L ABG Total CO2 28 H (19-24) mmol/L ABG O2 Saturation 98.7 H (94-97) % BUN 33 H (7-17) mg/dL Glucose 128 H (74-99) mg/dL POC Glucose (mg/dL) 128 H (75-99) mg/dL Calcium 8.1 L (8.4-10.2) mg/dL AST 94 H (14-36) U/L ALT 35 H (4-34) U/L Total Protein 4.9 L (6.3-8.2) g/dL Albumin 2.9 L (3.5-5.0) g/dL Crossmatch 07/30/20 Range/Units 08:17 WBC (3.8-10.6) k/uL RBC (3.80-5.40) m/uL Hgb (11.4-16.0) gm/dL Hct (34.0-46.0) % Neutrophils # (1.3-7.7) k/uL ABG HCO3 (21-25) mmol/L ABG Total CO2 (19-24) mmol/L ABG O2 Saturation (94-97) % BUN (7-17) mg/dL Glucose (74-99) mg/dL POC Glucose (mg/dL) 131 H (75-99) mg/dL Calcium (8.4-10.2) mg/dL AST (14-36) U/L ALT (4-34) U/L Total Protein (6.3-8.2) g/dL Albumin (3.5-5.0) g/dL Crossmatch Assessment and Plan Assessment: Postoperative day #3, status post three-vessel bypass grafting. Routine postoperative ventilator management. The patient remains on the ventilator because of her recent ischemic CVA. Postoperative acute/subacute right cerebellar infarct. Left-sided hemiparesis. Remote history of non-small cell lung cancer, with previous lobectomy. Prior history of tobacco use. Mild COPD based on PFTs. Family history of premature coronary artery disease. History of hypertension. Peripheral vascular occlusive disease. Degenerative joint disease. Hyperlipidemia. Chronic insomnia. History of postoperative anemia. Plan: Plan dated 07/30/2020. The patient remains on mechanical ventilator. Vent changes were made including a reduction in tidal volume 400 to 350, and increase of the PE to 8 cm water, and a reduction in the FiO2 to 50%. I also recommended patient go back on a low dose of propofol. In addition, we should try to get her tube feeds up to goal which is 57 mL an hour. At the bedside, we attempted a spontaneous breathing trial, and the patient clearly failed it. Her respiratory rate went up and her tidal volumes went down, and her minute volume was quite high. Microbiology remains negative. Medications are reviewed. Chest x-rays reviewed. She remains on DVT and GI prophylaxis. Overall prognosis is poor. We will continue to follow. Additional recommendations and suggestions are forthcoming. If she does not show any improvement, she may end up with a tracheostomy tube. Time with Patient: Greater than 30
[2020-07-30] MEDS ORDERED: AMIODARONE 360 MG in DEXTROSE 5% IN WATER 200 ML IV ONE ×2 (11:00)
[2020-07-30] MEDS ORDERED: DEXTROSE 5% IN WATER 100 ML with AMIODARONE 150 MG IV ONE (11:00)
[2020-07-30 11:43] LABS: Glucose,Whole Blood 159 mg/dL (75-99)
--- NOTE | 2020-07-30 11:54 | PN ---
PROGRESS NOTE Mrs. Arguello is a 75-year-old female who presented with CHF and non STEMI, underwent cardiac catheterization and was found to have severe triple-vessel coronary artery disease. Underwent coronary artery bypass grafting. When attempted to wean her and extubate her, noted a left-sided weakness. She continues to be intubated and sedated. She is in sinus mechanism. There is no episode of atrial fibrillation. She had a repeat the CT scan of the head yesterday that showed right cerebellar hemispheric ischemic event with no evidence of hemorrhagic transformation. She underwent an EEG yesterday. She continues to be at this time on aspirin once a day, Lipitor 80 mg daily, Plavix 75 mg daily, Zetia 10 mg daily, metoprolol tartrate 12.5 mg twice a day. PHYSICAL EXAMINATION: VITAL SIGNS: Blood pressure 111/50 with a heart rate in the 50s. LUNGS: Clear anteriorly. HEART: Regular rate and rhythm, S1, S2. No S3. No rub. ABDOMEN: Soft, positive bowel sounds. EXTREMITIES: No edema. NEUROLOGICALLY: She is intubated and sedated. LABORATORY DATA: Revealed hemoglobin of 8, white blood cell of 12.8, BUN and creatinine 33 and 0.64. IMPRESSION: 1. Status post coronary artery bypass grafting. 2. Left-sided weakness with recent cerebrovascular accident postoperatively. 3. History of hypertension. 4. Hyperlipidemia. 5. Remote history of non-small cell cancer. RECOMMENDATION: From the cardiac standpoint we will continue supportive care. Await further neurological input regarding attempt to wean her and extubate her. MMODL / IJN: [id number] /
--- NOTE | 2020-07-30 16:01 | P.PN ---
Subjective Progress Note Date: 07/30/20 Patient was seen for initial consultation by Dr. Matt Luong on 07/28/2020. Please refer to his detailed report. This is a follow-up performed. Patient came to the hospital with chest pain, underwent CABG on 07/27/2020. After patient was off sedation, was noted to have left-sided weakness. CT head showed acute right cerebellar infarct and chronic right parietal ischemic infarct. Patient has been severely encephalopathic. Patient is having some abnormal eye movement, for which EEG was performed, which revealed burst and suppression activity likely due to medication effect propofol. There is no focal slowing or obvious epileptiform activity. Clinical correlation is recommended. Patient was placed on Keppra 500 mg twice a day after loading dose of 1000 mg. Patient at present is on propofol 40 g. When the sedation is decreased, patient moves her right arm and right leg spontaneously but non-purposefully. Her left arm is flaccid. She has some movement in the left leg but not as good as the right side. Patient has developed atrial fibrillation with rapid ventricular rate overnight, for which she was started on amiodarone drip. This morning at 10:30 she converted back to normal sinus rhythm. Patient had a repeat CT head performed 07/29/2020, which revealed no significant change. Relatively recent ischemic insult in the right cerebellar hemisphere. No evidence for hemorrhagic transformation. This probably would not explain left hemiparesis as noted on examination by the staff. Patient at present is sedated, therefore examination limited. Objective - Vital Signs Vital signs: Vital Signs Temp 98.4 F 07/30/20 12:00 Pulse 76 07/30/20 15:00 Resp 16 07/30/20 15:00 BP 126/48 07/29/20 15:21 Pulse Ox 96 07/30/20 15:00 Intake & Output 07/29/20 07/30/20 07/30/20 18:59 06:59 18:59 Intake Total 3568.065 1049.543 713.257 Output Total 810 505 285 Balance 467.439 562.543 428.257 Weight 92.5 kg Intake: IV 380 377 208 Lactated Ringers 1,000 ml 280 220 160 @ 20 mls/hr IV .Q24H [facility] Rx#:[id number] levETIRAcetam IV 1,500 mg 100 100 In Saline 1 100ml.bag @ 400 mls/hr IVPB ONCE [facility] Rx#:[id number] pressure bag 57 48 Intake, IV Titration 457.439 270.543 415.257 Amount Dexmedetomidine/0.9% NaCl 5.004 (Pmx) 400 mcg In Empty Bag 1 bag @ Titrate IV . Q0M [facility] Rx#:[id number] Insulin Regular 100 unit 4.536 0 In Sodium Chloride 0.9% 100 ml @ Per Protocol IV .Q0M [facility] Rx#:[id number] Norepinephrine 4 mg In 359.560 42.485 150.876 Sodium Chloride 0.9% 250 ml @ 0.05 MCG/KG/MIN 15. 754 mls/hr IV .Q16H8M [facility] Rx#:[id number] levETIRAcetam IV 500 mg 100 In Sodium Chloride 0.9% 100 ml @ 400 mls/hr IVPB Q12HR [facility] Rx#:[id number] propofoL 500 mg In Empty 88.339 228.058 164.381 Bag 1 bag @ Titrate IV . Q0M [facility] Rx#:[id number] Tube Feeding 100 330 60 Blood Product 310 Rc As-1 Unit 310 [id number] Other 30 90 30 Output: Chest Tube Drainage 170 20 Left Lateral Chest 170 20 Urine 810 335 265 Other: Voiding Method Indwelling Catheter Indwelling Catheter ABP, PAP, CO, CI - Last Documented Arterial Blood Pressure 118/51 Pulmonary Artery Pressure 40/20 Cardiac Output 4.3 Cardiac Index 2.2 - Exam Patient is on sedation with propofol 40 g. Patient is on mechanical ventilation. Patient is sedated. Pupils are 5 mm reacting to 3 mm bilaterally. Oculocephalics are slightly present. Gaze is midline. No obvious seizure activity noted. Patient has peripheral edema. Reflexes are hypoactive bilaterally. Plantars are possibly upgoing. Tone is equal bilaterally, slightly increased. Cerebellar functions, sensations could not be assessed. - Labs CBC & Chem 7: 07/31/20 04:14 07/31/20 04:14 Labs: Abnormal Lab Results - Last 24 Hours (Table) 07/29/20 07/29/20 07/29/20 Range/Units 16:23 17:47 18:39 WBC (3.8-10.6) k/uL RBC (3.80-5.40) m/uL Hgb (11.4-16.0) gm/dL Hct (34.0-46.0) % Neutrophils # (1.3-7.7) k/uL ABG HCO3 (21-25) mmol/L ABG Total CO2 (19-24) mmol/L ABG O2 Saturation (94-97) % BUN (7-17) mg/dL Glucose (74-99) mg/dL POC Glucose (mg/dL) 124 H 135 H 116 H (75-99) mg/dL Calcium (8.4-10.2) mg/dL AST (14-36) U/L ALT (4-34) U/L Total Protein (6.3-8.2) g/dL Albumin (3.5-5.0) g/dL 07/29/20 07/29/20 07/29/20 Range/Units 19:54 22:12 23:43 WBC (3.8-10.6) k/uL RBC (3.80-5.40) m/uL Hgb (11.4-16.0) gm/dL Hct (34.0-46.0) % Neutrophils # (1.3-7.7) k/uL ABG HCO3 (21-25) mmol/L ABG Total CO2 (19-24) mmol/L ABG O2 Saturation (94-97) % BUN (7-17) mg/dL Glucose (74-99) mg/dL POC Glucose (mg/dL) 140 H 117 H 118 H (75-99) mg/dL Calcium (8.4-10.2) mg/dL AST (14-36) U/L ALT (4-34) U/L Total Protein (6.3-8.2) g/dL Albumin (3.5-5.0) g/dL 07/30/20 07/30/20 07/30/20 Range/Units 02:37 03:47 03:48 WBC 12.8 H (3.8-10.6) k/uL RBC 2.60 L (3.80-5.40) m/uL Hgb 8.0 L (11.4-16.0) gm/dL Hct 23.5 L (34.0-46.0) % Neutrophils # 9.8 H (1.3-7.7) k/uL ABG HCO3 (21-25) mmol/L ABG Total CO2 (19-24) mmol/L ABG O2 Saturation (94-97) % BUN (7-17) mg/dL Glucose (74-99) mg/dL POC Glucose (mg/dL) 125 H 137 H (75-99) mg/dL Calcium (8.4-10.2) mg/dL AST (14-36) U/L ALT (4-34) U/L Total Protein (6.3-8.2) g/dL Albumin (3.5-5.0) g/dL 07/30/20 07/30/20 07/30/20 Range/Units 03:48 05:40 06:25 WBC (3.8-10.6) k/uL RBC (3.80-5.40) m/uL Hgb (11.4-16.0) gm/dL Hct (34.0-46.0) % Neutrophils # (1.3-7.7) k/uL ABG HCO3 27 H (21-25) mmol/L ABG Total CO2 28 H (19-24) mmol/L ABG O2 Saturation 98.7 H (94-97) % BUN 33 H (7-17) mg/dL Glucose 128 H (74-99) mg/dL POC Glucose (mg/dL) 128 H (75-99) mg/dL Calcium 8.1 L (8.4-10.2) mg/dL AST 94 H (14-36) U/L ALT 35 H (4-34) U/L Total Protein 4.9 L (6.3-8.2) g/dL Albumin 2.9 L (3.5-5.0) g/dL 07/30/20 07/30/20 Range/Units 08:17 11:41 WBC (3.8-10.6) k/uL RBC (3.80-5.40) m/uL Hgb (11.4-16.0) gm/dL Hct (34.0-46.0) % Neutrophils # (1.3-7.7) k/uL ABG HCO3 (21-25) mmol/L ABG Total CO2 (19-24) mmol/L ABG O2 Saturation (94-97) % BUN (7-17) mg/dL Glucose (74-99) mg/dL POC Glucose (mg/dL) 131 H 159 H (75-99) mg/dL Calcium (8.4-10.2) mg/dL AST (14-36) U/L ALT (4-34) U/L Total Protein (6.3-8.2) g/dL Albumin (3.5-5.0) g/dL Assessment and Plan Assessment: * Acute bilateral cerebellar ischemic stroke (Right>left), as well as subacute evolving ischemic infarction involving the right MCA/TAZ watershed territory with left hemiplegia. Computed tomography scan also showed acute to subacute left caudate head ischemic infarction. The strokes were noted post CABG 07/27/2020. Patient probably had showers of emboli from cardiac source. Stroke likely cardioembolic. * New onset atrial fibrillation, but now back in sinus rhythm (with amiodarone). * Left hemiplegia, not able to be explained by "right cerebellar stroke". Patient probably had showers of emboli from cardiac source. * Bilateral ICA stenosis > 75% per CTA, however no significant stenosis per carotid Doppler. * Altered mental status probably due to ischemic encephalopathy, with sup erimposed toxic metabolic causes. * Peripheral arterial disease with history of lower extremity stenting * History of lung cancer status post right lower lobectomy * Anemia * Hypertension * Hyperlipidemia * X tobacco use. Plan: * Patient currently on dual antiplatelet medications. Not a candidate for anticoagulation because of recent cardiac surgery, and recent multiple CVA. * Suggest MRI of the brain to evaluate for extent of the strokes. * Continue high-dose statins. * Patient on heparin subcu for DVT prophylaxis. * Prognosis very guarded based upon computed tomography scan results. * We will review CT scans with the radiologist.
[2020-07-30] MEDS: AMIODARONE 450 MG in DEXTROSE 5% IN WATER 250 ML IV SCH ×2 (16:14)
[2020-07-30] MEDS: HYDROcodone/APAP 5-325MG 1 EACH TAB PO PRN (16:22)
[2020-07-30] MEDS ORDERED: FUROSEMIDE 10 MG/ML 2 ML VIAL IV ONE (16:30)
[2020-07-30 16:31] LABS: Glucose,Whole Blood 117 mg/dL (75-99)
--- NOTE | 2020-07-30 16:52 | P.GSCN ---
History of Present Illness Consult date: 07/30/20 Reason for Consult: Carotid stenosis, CVA Requesting physician: Yamil Luong History of present illness: This is a 75-year-old female with medical history of coronary artery disease, previous NV and stent, peripheral vessel occlusion, history of lung cancer with previous right lower lobectomy, hypertension, previous tobacco use that was transfered to [facility] on 07/21/2020 for chest pain and shortne ss of breath from outside facility. History is obtained from medical records and nursing as patient currently intubated and sedated. She initially presented to [facility] for chest pain and shortness of breath and was noted to have elevated BNP and troponin. She also had abnormal EKG and as a result she was transferred to [facility]. During her hospital stay she underwent the cardiac catheterization will which demonstrated severed triple vessel coronary artery disease. As a result cardiothoracic surgery team was consulted and the patient underwent coronary artery bypass grafting yesterday (07/27/2020). Patient was intubated and was on ventilator. Two days ago while the patient was off sedation was noted that the patient had left-sided weakness. She had a CT of the head (07/28/2020) with findings of acute/subacute area of infarct in the right cerebellum along with probable area of chronic infarction in the right parietal region and age atrophy and small vessel disease of aging. He also underwent a CT angiogram of the head and neck which showed significant plaque formation at the carotid artery bifurcations and more than 75% stenosis at the origins of the internal and neck sternal carotid arteries bilaterally. Significant calcification and plaque in the intracranial internal carotid arteries and probably more than 50% stenosis. Because of the carotid stenosis vascular surgery has been consult. She continues to be hypotensive requiring levophed. She's been having blood pressure as low as systolic in the 90s and diastolic between 40s to 50s. Today the patient was trialed for sedation holiday, however did not do well and had drop in her oxygen saturation again. The patient underwent a carotid ultrasound on 07/23/2020 with discordant findings from the CT angiogram of the head and neck. Carotid duplex on 07/29/2020 inconclusive findings due to poor study. Carotid duplex on 07/23/2020 is reported as extensive plaque with no significant hemodynamic stenosis EEG abnormal findings. 2-D echo was reported as moderate concentric left ventricular hypertrophy. Ejection fraction of 50-55%. Basal inferior left ventricle wall motion is a hypokinetic. Basal inferior septal left ventricle wall motion is hypokinetic. Left atrium is normal in size. Review of Systems Systems review unable to be completed due to patient being sedated and on mechanical ventilation Past Medical History Past Medical History: Coronary Artery Disease (CAD), Cancer, Chest Pain / Mimi na, Heart Failure, COPD, Hyperlipidemia, Hypertension, Myocardial Infarction (NV), Osteoarthritis (OA), Vascular Disorder Additional Past Medical History / Comment(s): hx. lung cancer, hx. colon polyps, frequent lower side pain, urinary frequency, PAD with lower extremity stenting Last Myocardial Infarction Date:: unknown History of Any Multi-Drug Resistant Organisms: None Reported Past Surgical History: Heart Catheterization With Stent, Hysterectomy Additional Past Surgical History / Comment(s): right lower lobectomy, colonoscopies, stenting,angioplasty lower legs Past Anesthesia/Blood Transfusion Reactions: No Reported Reaction Date of Last Stent Placement:: 2004 Past Psychological History: Anxiety, Depression Smoking Status: Former smoker Past Alcohol Use History: None Reported Additional Past Alcohol Use History / Comment(s): quit smoking 2011, 1ppd since teens, doesn't drink much anymore Past Drug Use History: None Reported - Past Family History Mother Family Medical History: Cancer Additional Family Medical History / Comment(s): colon Son(s) Family Medical History: Coronary Artery Disease (CAD) Additional Family Medical History / Comment(s): 1 son having CABG in his late 40s, the other son having CABG in his mid 50s Medications and Allergies Home Medications Medication Instructions Recorded Confirmed Type ALPRAZolam [Xanax] 0.25 mg PO BID 04/02/18 07/21/20 History Aspirin EC [Ecotrin Low Dose] 81 mg PO HS 04/02/18 07/21/20 History Atorvastatin [Lipitor] 80 mg PO HS 04/02/18 07/21/20 History Cholecalciferol [Vitamin D3 (25 1,000 unit PO HS 04/02/18 07/21/20 History Mcg = 1000 Iu)] Clopidogrel [Plavix] 75 mg PO HS 04/02/18 07/21/20 History Ezetimibe [Zetia] 10 mg PO HS 04/02/18 07/21/20 History HYDROcodone/APAP 5-325MG [Jakin 1 tab PO TID 04/02/18 07/21/20 History 5-325] Sertraline [Zoloft] 100 mg PO HS 04/02/18 07/21/20 History cilostazoL [Pletal] 100 mg PO BID 04/02/18 07/21/20 History Carvedilol [Coreg] 12.5 mg PO BID 03/19/19 07/21/20 History Losartan [Cozaar] 25 mg PO HS 03/19/19 07/21/20 History Cyclobenzaprine [Flexeril] 10 mg PO BID PRN 07/21/20 07/21/20 History Gabapentin [Neurontin] 300 mg PO BID 07/21/20 07/21/20 History Ibuprofen [Motrin] 800 mg PO Q12H PRN 07/21/20 07/21/20 History amLODIPine [Norvasc] 5 mg PO DAILY 07/21/20 07/21/20 History traZODone HCL 100 mg PO HS 07/21/20 07/21/20 History Allergies Allergy/AdvReac Type Severity Reaction Status Date / Time Penicillins AdvReac Rash/Hives, Verified 07/21/20 09:44 LOC zolpidem [From Ambien] AdvReac Hallucinati Verified 07/21/20 09:44 ons Surgical - Exam Vital Signs Temp Pulse Resp BP Pulse Ox 98 F 72 18 204/112 96 07/21/20 07:56 07/21/20 07:56 07/21/20 07:56 07/21/20 07:56 07/21/20 07:56 General appearance: The patient is dated and intubated. HET: Head is normocephalic and atraumatic. Upstroke deviated gaze. Neck: Supple without lymphadenopathy. Trachea midline. Heart: S1 S2. Regular rate and rhythm. Lungs: No crackles or wheezes are heard. Mechanical ventilation Abdomen: Soft, nontender, nondistended. Extremities: Lateral lower extremities with edema with compression stockings. Neurological: UnAble to follow commands. Left upper and lower extremity weakness/no movement. Patient was able to move her right upper extremity prior to being re-sedated. Results CT angiogram head and neck significant plaque formation at the carotid artery bifurcation and more than 75% stenosis at the origins of the internal and external carotid arteries bilaterally. Significant calcification and plaque in the intracranial internal carotid arteries and probably more than 50% stenosis. Carotid duplex on 07/29/2020 inconclusive findings due to poor study. Carotid duplex on 07/23/2020 is reported as extensive plaque with no significant hemodynamic stenosis. However after review with Dr. Beltran noted to have estimated 50-69% stenosis of the right carotid artery EEG abnormal findings. 2-D echo was reported as moderate concentric left ventricular hypertrophy. Ejection fraction of 50-55%. Basal inferior left ventricle wall motion is a hypokinetic. Basal inferior septal left ventricle wall motion is hypokinetic. Left atrium is normal in size. - Labs 07/30/20 03:48 07/30/20 03:48 Abnormal Lab Results - Last 24 Hours (Table) 07/26/20 07/29/20 07/29/20 Range/Units 07:12 10:02 10:45 WBC (3.8-10.6) k/uL RBC (3.80-5.40) m/uL Hgb (11.4-16.0) gm/dL Hct (34.0-46.0) % Neutrophils # (1.3-7.7) k/uL ABG HCO3 (21-25) mmol/L ABG Total CO2 (19-24) mmol/L ABG O2 Saturation (94-97) % BUN (7-17) mg/dL Glucose (74-99) mg/dL POC Glucose (mg/dL) 131 H (75-99) mg/dL Calcium (8.4-10.2) mg/dL AST (14-36) U/L ALT (4-34) U/L Total Protein (6.3-8.2) g/dL Albumin (3.5-5.0) g/dL Crossmatch See Detail See Detail 07/29/20 07/29/20 07/29/20 Range/Units 11:22 12:19 12:56 WBC (3.8-10.6) k/uL RBC (3.80-5.40) m/uL Hgb (11.4-16.0) gm/dL Hct (34.0-46.0) % Neutrophils # (1.3-7.7) k/uL ABG HCO3 (21-25) mmol/L ABG Total CO2 (19-24) mmol/L ABG O2 Saturation (94-97) % BUN (7-17) mg/dL Glucose (74-99) mg/dL POC Glucose (mg/dL) 150 H 161 H 163 H (75-99) mg/dL Calcium (8.4-10.2) mg/dL AST (14-36) U/L ALT (4-34) U/L Total Protein (6.3-8.2) g/dL Albumin (3.5-5.0) g/dL Crossmatch 07/29/20 07/29/20 07/29/20 Range/Units 15:08 16:23 17:47 WBC (3.8-10.6) k/uL RBC (3.80-5.40) m/uL Hgb (11.4-16.0) gm/dL Hct (34.0-46.0) % Neutrophils # (1.3-7.7) k/uL ABG HCO3 (21-25) mmol/L ABG Total CO2 (19-24) mmol/L ABG O2 Saturation (94-97) % BUN (7-17) mg/dL Glucose (74-99) mg/dL POC Glucose (mg/dL) 121 H 124 H 135 H (75-99) mg/dL Calcium (8.4-10.2) mg/dL AST (14-36) U/L ALT (4-34) U/L Total Protein (6.3-8.2) g/dL Albumin (3.5-5.0) g/dL Crossmatch 07/29/20 07/29/20 07/29/20 Range/Units 18:39 19:54 22:12 WBC (3.8-10.6) k/uL RBC (3.80-5.40) m/uL Hgb (11.4-16.0) gm/dL Hct (34.0-46.0) % Neutrophils # (1.3-7.7) k/uL ABG HCO3 (21-25) mmol/L ABG Total CO2 (19-24) mmol/L ABG O2 Saturation (94-97) % BUN (7-17) mg/dL Glucose (74-99) mg/dL POC Glucose (mg/dL) 116 H 140 H 117 H (75-99) mg/dL Calcium (8.4-10.2) mg/dL AST (14-36) U/L ALT (4-34) U/L Total Protein (6.3-8.2) g/dL Albumin (3.5-5.0) g/dL Crossmatch 07/29/20 07/30/20 07/30/20 Range/Units 23:43 02:37 03:47 WBC (3.8-10.6) k/uL RBC (3.80-5.40) m/uL Hgb (11.4-16.0) gm/dL Hct (34.0-46.0) % Neutrophils # (1.3-7.7) k/uL ABG HCO3 (21-25) mmol/L ABG Total CO2 (19-24) mmol/L ABG O2 Saturation (94-97) % BUN (7-17) mg/dL Glucose (74-99) mg/dL POC Glucose (mg/dL) 118 H 125 H 137 H (75-99) mg/dL Calcium (8.4-10.2) mg/dL AST (14-36) U/L ALT (4-34) U/L Total Protein (6.3-8.2) g/dL Albumin (3.5-5.0) g/dL Crossmatch 07/30/20 07/30/20 07/30/20 Range/Units 03:48 03:48 05:40 WBC 12.8 H (3.8-10.6) k/uL RBC 2.60 L (3.80-5.40) m/uL Hgb 8.0 L (11.4-16.0) gm/dL Hct 23.5 L (34.0-46.0) % Neutrophils # 9.8 H (1.3-7.7) k/uL ABG HCO3 27 H (21-25) mmol/L ABG Total CO2 28 H (19-24) mmol/L ABG O2 Saturation 98.7 H (94-97) % BUN 33 H (7-17) mg/dL Glucose 128 H (74-99) mg/dL POC Glucose (mg/dL) (75-99) mg/dL Calcium 8.1 L (8.4-10.2) mg/dL AST 94 H (14-36) U/L ALT 35 H (4-34) U/L Total Protein 4.9 L (6.3-8.2) g/dL Albumin 2.9 L (3.5-5.0) g/dL Crossmatch 07/30/20 07/30/20 Range/Units 06:25 08:17 WBC (3.8-10.6) k/uL RBC (3.80-5.40) m/uL Hgb (11.4-16.0) gm/dL Hct (34.0-46.0) % Neutrophils # (1.3-7.7) k/uL ABG HCO3 (21-25) mmol/L ABG Total CO2 (19-24) mmol/L ABG O2 Saturation (94-97) % BUN (7-17) mg/dL Glucose (74-99) mg/dL POC Glucose (mg/dL) 128 H 131 H (75-99) mg/dL Calcium (8.4-10.2) mg/dL AST (14-36) U/L ALT (4-34) U/L Total Protein (6.3-8.2) g/dL Albumin (3.5-5.0) g/dL Crossmatch Diabetes panel 07/30/20 Range/Units 03:48 Sodium 139 (137-145) mmol/L Potassium 3.6 (3.5-5.1) mmol/L Chloride 107 (98-107) mmol/L Carbon Dioxide 27 (22-30) mmol/L BUN 33 H (7-17) mg/dL Creatinine 0.64 (0.52-1.04) mg/dL Glucose 128 H (74-99) mg/dL Calcium 8.1 L (8.4-10.2) mg/dL AST 94 H (14-36) U/L ALT 35 H (4-34) U/L Alkaline Phosphatase 54 (38-126) U/L Total Protein 4.9 L (6.3-8.2) g/dL Albumin 2.9 L (3.5-5.0) g/dL Calcium panel 07/30/20 Range/Units 03:48 Calcium 8.1 L (8.4-10.2) mg/dL Albumin 2.9 L (3.5-5.0) g/dL Pituitary panel 07/30/20 Range/Units 03:48 Sodium 139 (137-145) mmol/L Potassium 3.6 (3.5-5.1) mmol/L Chloride 107 (98-107) mmol/L Carbon Dioxide 27 (22-30) mmol/L BUN 33 H (7-17) mg/dL Creatinine 0.64 (0.52-1.04) mg/dL Glucose 128 H (74-99) mg/dL Calcium 8.1 L (8.4-10.2) mg/dL Adrenal panel 07/30/20 Range/Units 03:48 Sodium 139 (137-145) mmol/L Potassium 3.6 (3.5-5.1) mmol/L Chloride 107 (98-107) mmol/L Carbon Dioxide 27 (22-30) mmol/L BUN 33 H (7-17) mg/dL Creatinine 0.64 (0.52-1.04) mg/dL Glucose 128 H (74-99) mg/dL Calcium 8.1 L (8.4-10.2) mg/dL Total Bilirubin 0.8 (0.2-1.3) mg/dL AST 94 H (14-36) U/L ALT 35 H (4-34) U/L Alkaline Phosphatase 54 (38-126) U/L Total Protein 4.9 L (6.3-8.2) g/dL Albumin 2.9 L (3.5-5.0) g/dL Assessment and Plan Assessment: 1. Symptomatic right carotid stenosis with discordant findings from CT angiogram and carotid ultrasound 2. New bilateral cerebellar ischemic stroke right greater than left 3. Coronary artery disease status post cardiac catheterization and CABG on 07/27/2020 4. History of peripheral arterial disease with lower extremity stenting 5. History of lung cancer status post right lower lobectomy 6. Hypertension 7. Hyperlipidemia 8. Tobacco abuse Plan: 1. Continue supportive care and ICU management 2. Continue with aspirin, Plavix, and Lipitor 3. Continue with recommendations from neurology 4. Patient will be a candidate for procedure for her symptomatic right internal carotid stenosis she becomes medically stable 5. No indication for any acute vascular surgical intervention at this time Thank you for this consultation and allowing us take part in the plan of care of your patient during her hospital stay The impression and plan of care has been dictated as directed. Dr.Cuppari I performed a history and examination of this patient, discussed the same with the dictator. I agree with the dictator's note ,documented as a scribe. Any additional findings or plans will be noted.
[2020-07-30] MEDS: INSULIN ASPART (NovoLOG) 100 UNIT/ML VIAL SQ SCH ×2 (17:01→20:09)
--- NOTE | 2020-07-30 20:09 | P.PN ---
Progress Note - Text Progress Note Date: 07/30/20 Chief Complaint: Chest pain History of presenting complaint: This is a pleasant 75-year-old patient of Dr. Derrick Neal. Chronic stable medical conditions include COPD, hyperlipidemia, hypertension, ostial arthritis, lung cancer 6 years ago, peripheral artery disease, coronary artery stent, peripheral stents, anxiety depression. Patient presented after she was having central chest pressure at home then went to both the shoulder blades for the arms. Patient became nauseated. No dizziness or lightheadedness. She shortness of breath. No perspiration. Symptoms most lost about 40 minutes she was taken to [facility]. She was similar episode about 2 weeks ago. Transferred down here. Has some lower extremity edema Admitted with unstable angina. underwent cardiac catheterization. Found to have severe triple-vessel coronary artery disease. July 27-underwent coronary bypass 3, ligation of left atrial appendage. Patient received a unit of blood. Today-ICU- ventilator: Ventilator FiO2 50 and a PEEP of 8. Drips include norepinephrine, propofol and IV amiodarone. Went into atrial fibrillation and back into sinus rhythm. Pleural chest tube removed Review of systems: Patient intubated Active Medications Hydrocodone Bitart/Acetaminophen (Hydrocodone/Apap 5-325mg 1 Each Tab) 2 each PO Q4HR PRN PRN Reason: Severe Pain Last Admin: 07/30/20 16:22 Dose: 2 each Documented by: Hydrocodone Bitart/Acetaminophen (Hydrocodone/Apap 5-325mg 1 Each Tab) 1 each PO Q4HR PRN PRN Reason: Moderate Pain Albuterol/Ipratropium (Ipratropium-Albuterol 3 Ml Neb) 3 ml INHALATION RT-Q2H PRN PRN Reason: Shortness Of Breath Or Wheezing Albuterol/Ipratropium (Ipratropium-Albuterol 3 Ml Neb) 3 ml INHALATION RT-QID [facility] Last Admin: 07/30/20 18:44 Dose: 3 ml Documented by: Aspirin (Aspirin 325 Mg Tab) 325 mg PO DAILY [facility] Last Admin: 07/30/20 08:23 Dose: 325 mg Documented by: Atorvastatin Calcium (Atorvastatin 80 Mg Tab) 80 mg PO HS [facility] Last Admin: 07/29/20 20:33 Dose: 80 mg Documented by: Benzocaine/Menthol (Benzocaine/Menthol Lozeng 1 Each Lozenge) 1 each MUCOUS MEM Q2H PRN PRN Reason: Sore Throat Bisacodyl (Bisacodyl 10 Mg Supp) 10 mg RECTAL DAILY PRN PRN Reason: Constipation Clopidogrel Bisulfate (Clopidogrel 75 Mg Tab) 75 mg PO DAILY [facility] Last Admin: 07/30/20 08:22 Dose: 75 mg Documented by: Ezetimibe (Ezetimibe 10 Mg Tab) 10 mg PO HS [facility] Last Admin: 07/29/20 20:34 Dose: 10 mg Documented by: Heparin Sodium (Porcine) (Heparin Sodium,Porcine 5,000 Unit/Ml 1 Ml Vial) 5,000 unit SQ Q8HR [facility] Last Admin: 07/30/20 15:42 Dose: 5,000 unit Documented by: Norepinephrine Bitartrate 4 mg (/ Sodium Chloride) 254 mls @ 15.754 mls/hr IV .Q16H8M INÉS; Protocol Last Titration: 07/30/20 12:33 Dose: 0 mcg/kg/min, 0 mls/hr Documented by: Amiodarone HCl 150 mg/ (Dextrose/Water) 103 mls @ 618 mls/hr IV .Q10M PRN; Protocol PRN Reason: A.FIB/FLUTTER Amiodarone HCl 360 mg/ (Dextrose/Water) 207.2 mls @ 34.533 mls/hr IV .Q6H PRN; Protocol PRN Reason: A.FIB/FLUTTER Amiodarone HCl 450 mg/ (Dextrose/Water) 250 mls @ 16.667 mls/hr IV .Q15H PRN; Protocol PRN Reason: A.FIB/FLUTTER Lactated Ringer's (Lactated Ringers) 1,000 mls @ 20 mls/hr IV .Q24H [facility] Last Admin: 07/30/20 00:50 Dose: 20 mls/hr Documented by: Calcium Gluconate 2 gm/ Sodium (Chloride) 120 mls @ 100 mls/hr IVPB ONCE PRN PRN Reason: Ionized Calcium less than 4.4 Stop: 08/06/20 14:16 Propofol 500 mg/ IV Solution 50 mls @ 0 mls/hr IV .Q0M INÉS; Protocol Last Admin: 07/30/20 18:21 Dose: 40 mcg/kg/min, 22.2 mls/hr Documented by: Levetiracetam 500 mg/ Sodium (Chloride) 105 mls @ 400 mls/hr IVPB Q12HR [facility] Last Admin: 07/30/20 08:22 Dose: 400 mls/hr Documented by: Amiodarone HCl 450 mg/ (Dextrose/Water) 250 mls @ 16.667 mls/hr IV .Q15H [facility]; Protocol Stop: 07/31/20 09:59 Last Admin: 07/30/20 16:14 Dose: 0.5 mg/min, 16.667 mls/hr Documented by: Insulin Aspart (Insulin Aspart (Novolog) 100 Unit/Ml Vial) 0 unit SQ Q4HR [facility]; Protocol Last Admin: 07/30/20 17:01 Dose: Not Given Documented by: Magnesium Hydroxide (Magnesium Hydroxide 2,400 Mg/10 Ml Cup) 2,400 mg PO BID PRN PRN Reason: Constipation Metoclopramide HCl (Metoclopramide 5 Mg/Ml 2 Ml Vial) 10 mg IVP Q4H PRN PRN Reason: Nausea And Vomiting Metoprolol Tartrate (Metoprolol Tartrate 12.5 Mg Tab) 12.5 mg PO BID [facility] Last Admin: 07/30/20 08:22 Dose: 12.5 mg Documented by: Miscellaneous Information (Potassium Replacement Protocol 1 Each Misc) 1 each MISCELLANE DAILY PRN; Protocol PRN Reason: Per Protocol Miscellaneous Information (Magnesium Replacement Protocol 1 Each Misc) 1 each MISCELLANE DAILY PRN; Protocol PRN Reason: Per Protocol Miscellaneous Information (Phosphorus Replacement Protoco 1 Each Misc) 1 each MISCELLANE DAILY PRN; Protocol PRN Reason: Per Protocol Ondansetron HCl (Ondansetron 4 Mg/2 Ml Vial) 4 mg IVP Q6HR PRN PRN Reason: Nausea And Vomiting Pantoprazole Sodium (Pantoprazole 40 Mg/10 Ml Vial) 40 mg IVP DAILY [facility] Last Admin: 07/30/20 08:22 Dose: 40 mg Documented by: Senna/Docusate Sodium (Sennosides-Docusate Sodium 1 Each Tab) 2 each PO HS [facility] Last Admin: 07/29/20 20:33 Dose: 2 each Documented by: Sertraline HCl (Sertraline 100 Mg Tab) 100 mg PO DAILY [facility] Last Admin: 07/30/20 08:22 Dose: 100 mg Documented by: Sodium Chloride (Sodium Chloride 0.9% Flush 10 Ml Syringe) 10 ml IV BID INÉS Last Admin: 07/30/20 08:22 Dose: 10 ml Documented by: Past medical history to include: CHF, COPD, hyperlipidemia, hypertension, coronary artery disease with stent, osteoporosis, lung cancer 6 years ago, peripheral arterial disease, anxiety depression Social history: Lives with her son. Smoked a pack a day since the teenage years. Stop in 2011. Some alcohol in the past Physical examination: VITAL SIGNS: 98.4, 73, 16, 95% on 50% GENERAL: Laying in bed, intubated, EYES: Pupils equal. Conjunctiva normal. HEENT: External appearance of nose and ears normal, oral cavity endotracheal tube. NECK: JVD unable to assess; masses not palpable. HEART: First and second heart sounds are normal; no edema. LUNGS: Respiratory rate increased; decreased breath sounds. ABDOMEN: Soft, nontender, liver spleen not palpable, no masses palpable. Da Silva catheter PSYCH: Unable to assess MUSCULOSKELETAL: Evidence of OA Investigations: July 30: WBC 12.8 hemoglobin 8 potassium 3.6 creatinine 0.64 July 29: White count 11.5 hemoglobin 6.9 platelets 210 July 28: White count 10.7 hemoglobin 7.4 platelets 195 potassium 3.9 creatinine 0.58 July 27: Incontinent 12.6 hemoglobin 7.7 platelets 199 potassium 4.5 creatinine 0.56 albumin 3.3 July 22: Potassium 4.1 creatinine 0.97 proBNP 1270 Cardiac [id number] disease 2-D echocardiogram-moderate concentric LVH, EF 50-55% hypokinetic galicai Troponin I 0.018, 0.012 Coronavirus [PCR]-not detected EKG tracing personally reviewed by me-normal sinus rhythm, PVC Assessment and plan: -Coronary artery bypass [id number] July 27. On Plavix, Lopressor, Zetia -Acute postprocedure blood loss anemia, as expected from surgery, received 1 unit of blood -Hypotensive shock from volume loss patient was on levo currently on a small dose -Unstable angina, POA -Triple-vessel coronary artery disease on cardiac catheterization. Plavix, Lopressor, Zetia -Acute on chronic congestive heart diastolic dysfunction EF 50-55% received IV Lasix. Stabilized. Follow clinically -COPD in a previous smoker, on DuoNeb -Hyperlipidemia, continue Lipitor -Essential hypertension, follow closely -Primary osteoarthritis, take Tylenol when necessary -History of lung cancer 6 years ago -Peripheral arterial disease with stenting, on aspirin and Plavix -Anxiety depression otherwise specified-on Zoloft -Chronic insomnia continue with melatonin -Paroxysmal atrial fibrillation. Started on amiodarone Patient remains intubated. Drips include norepinephrine, propofol, amiodarone. Thank you Dr. Moffett
[2020-07-30 20:10] LABS: Glucose,Whole Blood 131 mg/dL (75-99)
[2020-07-30] MEDS: ATORVASTATIN 80 MG TAB PO SCH (20:14)
[2020-07-30] MEDS: EZETIMIBE 10 MG TAB PO SCH (20:14)
[2020-07-30] MEDS: SENNOSIDES-DOCUSATE SODIUM 1 EACH TAB PO SCH (20:14)
[2020-07-31] MEDS: NOREPINEPHRINE 4 MG in SODIUM CHLORIDE 0.9% 250 ML IV SCH ×2 (01:12→15:27)
[2020-07-31] MEDS: HEPARIN SODIUM,PORCINE 5,000 UNIT/ML 1 ML VIAL SQ SCH ×3 (01:28→16:13)
[2020-07-31 01:29] LABS: Glucose,Whole Blood 119 mg/dL (75-99)
[2020-07-31] MEDS: INSULIN ASPART (NovoLOG) 100 UNIT/ML VIAL SQ SCH ×6 (01:29→20:16)
[2020-07-31] MEDS: LACTATED RINGERS 1,000 ML IV SCH (02:43)
[2020-07-31] MEDS: DEXTROSE 5% IN WATER 100 ML with AMIODARONE 150 MG IV PRN ×2 (03:05→21:39)
[2020-07-31] MEDS: HYDROcodone/APAP 5-325MG 1 EACH TAB PO PRN (03:05)
[2020-07-31 04:30] LABS: HCT 22.9 % (34.0-46.0); HGB 7.6 gm/dL (11.4-16.0); MCH 30.5 pg (25.0-35.0); MCHC 33.3 g/dL (31.0-37.0); MCV 91.5 fL (80.0-100.0); Mean Platelet Volume 8.6; Platelet Count 273 k/uL (150-450); RDW 14.3 % (11.5-15.5); WBC 13.5 k/uL (3.8-10.6)
[2020-07-31 04:45] LABS: Ionized Calcium 4.7 mg/dL (4.5-5.3)
[2020-07-31 05:03] LABS: ALT 106 U/L (4-34); AST 147 U/L (14-36); African American GFR (CKD) >90 (>60 ml/min/1.73 sqM); Albumin 2.8 g/dL (3.5-5.0); Alkaline Phosphatase 101 U/L (38-126); Anion Gap 8 mmol/L; Blood Urea Nitrogen 30 mg/dL (7-17); Calcium 7.9 mg/dL (8.4-10.2); Carbon Dioxide 25 mmol/L (22-30); Chloride 104 mmol/L (98-107); Glucose 128 mg/dL (74-99); Non-African American GFR(CKD) >90 (>60 ml/min/1.73 sqM); Potassium 3.5 mmol/L (3.5-5.1); Sodium 137 mmol/L (137-145); Total Bilirubin 0.6 mg/dL (0.2-1.3)
[2020-07-31 05:31] LABS: ABG Base Excess 2.5 mmol/L; ABG HCO3 27 mmol/L (21-25); ABG Oxygen Saturation 95.9 % (94-97); ABG PCO2 44 mmHg (35-45); ABG PO2 76 mmHg (83-108); ABG TCO2 29 mmol/L (19-24); Allen Test Performed? Yes
[2020-07-31] MEDS: AMIODARONE 450 MG in DEXTROSE 5% IN WATER 250 ML IV SCH ×2 (06:39)
[2020-07-31] MEDS ORDERED: POTASSIUM BICARBONATE/CIT AC 20 MEQ TABLET.EFF NG-TUBE SCH (07:00)
[2020-07-31] MEDS: IPRATROPIUM-ALBUTEROL 3 ML NEB INHALATION SCH ×4 (07:11→19:11)
[2020-07-31 07:49] LABS: Glucose,Whole Blood 150 mg/dL (75-99)
[2020-07-31] MEDS: PANTOPRAZOLE 40 MG/10 ML VIAL IVP SCH (07:59)
[2020-07-31] MEDS: levETIRAcetam IV 500 MG in SODIUM CHLORIDE 0.9% 100 ML IVPB SCH ×2 (07:59→20:17)
--- NOTE | 2020-07-31 08:09 | XR ---
EXAMINATION TYPE: XR chest 1V portable DATE OF EXAM: 07/31/2020 COMPARISON: 07/30/1999 HISTORY: Shortness of breath TECHNIQUE: Single frontal view of the chest is obtained. FINDINGS: ET and NG tube stable. Stimulator device noted. Bilateral diffuse interstitial pattern wit h basilar consolidation and small effusion stable. No pneumothorax. Left-sided chest tube has been re moved. IMPRESSION: 1. Stable diffuse pleural-parenchymal changes correlate for CHF otherwise consider diffuse pneumonia.
--- NOTE | 2020-07-31 08:41 | P.PN ---
Subjective Progress Note Date: 07/31/20 Principal diagnosis: Triple-vessel coronary artery disease, unstable angina. History of coronary artery disease with previous myocardial infarction and stent placement, peripheral arterial disease with lower extremity stenting, lung cancer status post right lower lobectomy in 2012, hypertension, hyperlipidemia, COPD with previous tobacco dependence, anxiety/depression, family history of premature coronary artery disease, significant plaque formation more than 75% stenosis at the origins of both internal and external carotid arteries bilaterally on CTA POD #4 coronary artery bypass grafting 3 vessels, left internal mammary artery to the left anterior descending artery, reverse saphenous vein graft to the obtuse marginal artery, reverse saphenous vein graft to the posterior descending artery, endoscopic harvesting of the right greater saphenous vein, ligation of the left atrial appendage using a 35 mm AtriClip, epi-aortic ultrasound and intraoperative transesophageal echocardiogram Postoperative acute blood loss anemia, expected given hemodilution and cardiopulmonary bypass pump Postoperative right acute/subacute cerebellar infarct on brain CT, unexpected, although possible complication of any open heart surgery, especially given patient's known history of significant arterial disease Prolonged mechanical ventilation, unexpected, secondary to acute stroke Paroxysmal atrial fibrillation, known common occurrence after open heart surgery The patient was seen and examined at the bedside. She is currently sedated with propofol on mechanical ventilation. She did have another short burst of rapid A. fib last night which was treated with amiodarone bolus, currently in sinus rhythm to sinus bradycardia with heart rate in the high 50s to low 60s. Remains on IV amiodarone and oral Lopressor. Has been off Levophed since yesterday. Right internal jugular Cordis remain present. Unable to follow any commands or respond at this time secondary to propofol sedation, pupils are equal and reactive 4 mm down to 2 mm. Spontaneous breathing trial was attempted yesterday, patient became very tachycardic, hypertensive, and tachypnea, placed back on sedation and full vent support. Tube feeding continues at goal. Son's Osmany and Christian updated daily. Objective - Vital Signs Vital signs: Vital Signs Temp 99 F 07/31/20 04:00 Pulse 61 07/31/20 07:21 Resp 23 07/31/20 07:12 BP 99/52 07/31/20 07:00 Pulse Ox 98 07/31/20 06:00 Intake & Output 07/30/20 07/31/20 07/31/20 18:59 06:59 18:59 Intake Total 4707.118 6172.733 107.79 Output Total 720 495 50 Balance 930.730 0747.733 57.79 Weight 90.5 kg Intake: IV 312 312 26 Lactated Ringers 1,000 ml 240 240 20 @ 20 mls/hr IV .Q24H [facility] Rx#:[id number] pressure bag 72 72 6 Intake, IV Titration 493.007 506.733 24.79 Amount Amiodarone 450 mg In 240.283 Dextrose 5% in Water 250 ml @ 0.5 MG/MIN 16.667 mls/hr IV .Q15H [facility] Rx#: [id number] Norepinephrine 4 mg In 150.876 Sodium Chloride 0.9% 250 ml @ 0.05 MCG/KG/MIN 15. 754 mls/hr IV .Q16H8M [facility] Rx#:[id number] levETIRAcetam IV 500 mg 100 In Sodium Chloride 0.9% 100 ml @ 400 mls/hr IVPB Q12HR [facility] Rx#:[id number] propofoL 500 mg In Empty 242.131 266.45 24.79 Bag 1 bag @ Titrate IV . Q0M [facility] Rx#:[id number] Tube Feeding 340 599 57 Other 90 90 Output: Chest Tube Drainage 20 Left Lateral Chest 20 Urine 700 495 50 Other: Voiding Method Indwelling Catheter Indwelling Catheter ABP, PAP, CO, CI - Last Documented Arterial Blood Pressure 113/55 Pulmonary Artery Pressure 40/20 Cardiac Output 4.3 Cardiac Index 2.2 - Constitutional Constitutional Comment(s): Appears comfortable on mechanical ventilation - Respiratory Details: Lungs sounds diminished bilaterally. Respirations even, nonlabored on mechanical ventilation. Current ventilator settings FiO2 50%, tidal volume 350, respiratory rate 16, PEEP 8. 8.0 ET tube present, 22 at the lip. - Cardiovascular Details: S1, S2 present. Regular rate and rhythm, sinus rhythm on telemetry. Sternum stable. A/V epicardial pacemaker wires present, grounded. Palpable peripheral pulses bilaterally. Trace generalized edema present. No calf pain or tenderness noted. Heart hugger, antiembolism stockings, SCDs present. Right internal jugular Cordis present. - Gastrointestinal Gastrointestinal Comment(s): Abdomen soft, nontender, nondistended. Active bowel sounds present 4 quadrants. OG tube present with tube feeding infusing at goal, Dobbhoff present. - Genitourinary Genitourinary Comment(s): Da Silva present draining clear, yellow urine. Output 15-40 mL/h overnight, 575 mL after IV Lasix given yesterday. - Integumentary Integumentary Comment(s): Skin is warm and dry with evidence of good perfusion. Anterior chest incision well approximated and covered with dry intact dressing. Right lower extremity EVH site well approximated without redness or drainage. - Neurologic Neurologic Comment(s): Unable to assess this time due to heavy sedation with propofol - Psychiatric Psychiatric Comment(s): Unable to assess at this time due to heavy sedation with propofol - Allied health notes Allied health notes reviewed: nursing - Labs CBC & Chem 7: 07/31/20 04:14 07/31/20 04:14 Labs: Abnormal Lab Results - Last 24 Hours (Table) 07/30/20 07/30/20 07/30/20 Range/Units 11:41 16:30 20:08 WBC (3.8-10.6) k/uL RBC (3.80-5.40) m/uL Hgb (11.4-16.0) gm/dL Hct (34.0-46.0) % BUN (7-17) mg/dL Glucose (74-99) mg/dL POC Glucose (mg/dL) 159 H 117 H 131 H (75-99) mg/dL Calcium (8.4-10.2) mg/dL AST (14-36) U/L ALT (4-34) U/L Total Protein (6.3-8.2) g/dL Albumin (3.5-5.0) g/dL 07/31/20 07/31/20 07/31/20 Range/Units 01:27 04:14 04:14 WBC 13.5 H (3.8-10.6) k/uL RBC 2.50 L (3.80-5.40) m/uL Hgb 7.6 L (11.4-16.0) gm/dL Hct 22.9 L (34.0-46.0) % BUN 30 H (7-17) mg/dL Glucose 128 H (74-99) mg/dL POC Glucose (mg/dL) 119 H (75-99) mg/dL Calcium 7.9 L (8.4-10.2) mg/dL AST 147 H (14-36) U/L ALT 106 H (4-34) U/L Total Protein 5.0 L (6.3-8.2) g/dL Albumin 2.8 L (3.5-5.0) g/dL 07/31/20 Range/Units 07:48 WBC (3.8-10.6) k/uL RBC (3.80-5.40) m/uL Hgb (11.4-16.0) gm/dL Hct (34.0-46.0) % BUN (7-17) mg/dL Glucose (74-99) mg/dL POC Glucose (mg/dL) 150 H (75-99) mg/dL Calcium (8.4-10.2) mg/dL AST (14-36) U/L ALT (4-34) U/L Total Protein (6.3-8.2) g/dL Albumin (3.5-5.0) g/dL - Imaging and Cardiology Chest x-ray: report reviewed, image reviewed Assessment and Plan Assessment: 1. Triple-vessel coronary artery disease, unstable angina, status post three- vessel CABG 2. History of coronary artery disease with previous myocardial infarction and stent placement 3. Peripheral arterial disease with lower extremity stenting 4. History of lung cancer status post right lower lobectomy 5. Hypertension, currently hypotensive requiring IV pressors 6. Hyperlipidemia, treated, cholesterol 152, LDL 85 7. COPD with previous tobacco dependence, preoperative FEV1 82% of predicted 8. Anxiety/depression 9. Family history of premature coronary artery disease 10. Postoperative acute blood loss anemia, expected, status post 1 unit packed red blood cell transfusion 11. Postoperative acute/subacute right cerebellar infarct, unexpected, with evidence of previous right parietal stroke 12. Bilateral internal carotid artery disease greater than 75% present on CTA 13. Prolonged mechanical ventilation 14. Paroxysmal atrial fibrillation, status post ligation of the left atrial appendage, currently sinus rhythm Plan: 1. Continue ASA, statin, Plavix, beta tran. Will increase beta tran therapy as tolerated 2. Continue amiodarone for A. fib prophylaxis. No anticoagulation at this point 3. Mechanical ventilation per pulmonology. May wean to extubate when able. Bronchodilators per pulmonology 4. Neurology consulted, appreciate recommendations. Neuro checks every hour 5. Once extubated will increase activity as tolerated, work to improve movement on the left side. PT/OT/cardiac rehab consulted 6. Once extubated will encourage incentive spirometry use 7. Will monitor daily labs and x-rays. Electrolyte replacement per protocol. 8. GI/DVT prophylaxis 9. Pain control with current medication regimen 10. Likely will place a PICC line, discontinue Cordis 11. Will continue Da Silva catheter 12. Strict accurate intake and output. Daily weights 13. Limit sedation to be able to assess neuro status 14. Will update patient's family daily 15. Social work consulted as patient will need rehab at discharge 16. More recommendations to follow based on patient's clinical course Time with Patient: Greater than 30
--- NOTE | 2020-07-31 09:22 | PN ---
PROGRESS NOTE Mrs. Arguello is a 75-year-old female who presented with an acute non STEMI with symptoms of CHF, underwent cardiac catheterization, was found to have severe obstructive coronary artery disease, underwent coronary artery bypass grafting and the attempt to wean her off. She was found to have evidence of significant weakness on the left side. She remains intubated. Hemodynamically, she is stable. She is a sedated at this time. She continues to be on aspirin once a day, Lipitor 80 mg daily, Plavix 75 mg daily, metoprolol tartrate 12.5 mg twice a day. PHYSICAL EXAMINATION: Blood pressure running in the one teens with the heart rate in the 60s. She is intubated and sedated. LUNGS: Clear anteriorly. HEART: Regular rate and rhythm. S1, S2. No S3. No rub. ABDOMEN: Soft. No organomegaly. EXTREMITIES: No edema. LAB DATA: Lab data revealed a hemoglobin of 7.6. BUN and creatinine 30 and 0.56. IMPRESSION: 1. Status post coronary artery bypass grafting. 2. Cerebrovascular accident following surgical intervention. 3. Carotid obstructive disease. 4. Prior history of non-small cell carcinoma of the lung. 5. History of hypertension. 6. Hyperlipidemia. 7. Peripheral vascular disease. RECOMMENDATION: We will continue present therapy. Continue supportive care at this time. Continue to wean her and hopefully extubate her and undergo further neurological evaluation. MMODL / IJN: [id number] /
[2020-07-31] MEDS: METOPROLOL TARTRATE 12.5 MG TAB PO SCH (09:45)
[2020-07-31] MEDS: SERTRALINE 100 MG TAB PO SCH (09:46)
[2020-07-31] MEDS: CLOPIDOGREL 75 MG TAB PO SCH (09:46)
[2020-07-31] MEDS: ASPIRIN 325 MG TAB PO SCH (09:46)
--- NOTE | 2020-07-31 09:58 | P.PN ---
Subjective Progress Note Date: 07/31/20 Principal diagnosis: Status post three-vessel bypass grafting. Patient was reevaluated today on 07/28/2020, remains intubated and mechanically ventilated. Patient is now on assist control mode of mechanical ventilation with a rate of 16, volume is 450 FiO2 is 50% and PEEP of 5. Unfortunately the patient was noted to have poor movement of her left upper and left lower extremity last night, CT of the head last night showed acute/subacute area of infarction in the right cerebellum along with probable area of chronic infarction in the right parietal region I evaluated the patient this morning, seems to be extremely restless and agitated, seems to be neglecting the left side, and both eyes are deviated to the right and upwards. Patient seems to be moving her right side quite well, however the left side seems to be relatively weak although she was squeezing my hand with her left hand. And minimal movement noted in the left lower extremity. Patient is on Precedex, and seems to be agitated in spite of Precedex. Her ventilatory settings are reasonable, ABG is reasonable, patient is basically extubate overall, however her mental status is a bit concerning specially with her extreme agitation, keeps pulling and shaking the railing of the bed on the right side. Patient was given Ativan, and I have recommended increasing Precedex. She is not truly quite ready to be extubated today. Again my major concern is her mental status. And she is yet to be seen by neurology on consultation. Blood pressure is quite high, 160 systolic, norepinephrine was discontinued during my evaluation. She was on a very minimal dose of 0.1 mcg/kg/m of norepinephrine patient was also on milrinone. CBC is relatively normal hemoglobin is 7.4. ABG this morning showed a pO2 of 92 pCO2 of 38 pH of 7.45. This was on 50% FiO2. Electrolytes and renal profile are normal. Chest x-ray showed mostly postoperative changes of CABG 07/29/2020, I'm seeing the patient for a follow-up in the intensive care unit. This morning the patient is heavily sedated with propofol and she is calm and comfortable. Unfortunately with that, neurologic examination is not possible. I would suggest gradually cutting down the propofol and assess her neuro status and if needed utilize Precedex as an alternative sedative drip. Meanwhile, the patient remains essentially with enema to severe with a low dose of norepinephrine infusion running at 0.06 mcg/kg per minute. She has an adequate urine output. Cardiac rhythm is sinus. She has a left pleural and mediastinal chest tubes and output from those are in order of minimal, less than 100 over the past 24 hours. The chest x-ray showing cardiomegaly. There is some kyphoscoliosis of the chest. Chest tubes are in good location. ET tube is in good location. Atelectatic changes and some mild four-vessel congestion. Meanwhile, the patient's vent settings include an assist-control mode at the rate of 16 with a tidal volume of 450 and FiO2 of 40% with a PEEP of 5. The blood gases from this morning showed a pH of 7.49 with a pCO2 of 36 and pO2 of 82. On today's blood work, the patient's hemoglobin is down to 6.9 from 7.4. Platelets is at 210. 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 Intracranial cerebral arteries were essentially patent with nothing significantly stenotic. During our limited neurologic evaluation, the patient did not do mistreat any withdrawal with to painful stimulation. No Babinski. No clonus. Nevertheless, I was told by the nursing staff that she was able to move her right side yesterday and her left side once off sedation. Pupils are equal and reactive to light and order of 3 mm. No preferential gaze on today's evaluation. A sedation holiday will be given. She is on enteral nutrition. No other drips. No seizure activity. Neurologist on the case. She is on aspirin, Plavix, and she also on metoprolol 12.5 mg by mouth twice a day. She is also on high-dose statins. Progress note dated 05/29/2021. Currently, this is a 75-year-old female who was admitted to the hospital on July 21. She went to the operating room, on July 27 for a three-vessel bypass grafting with Dr. Alan. The patient has never been extubated. Unfortunately, she developed a right cerebellar CVA. She remains on the mechanical ventilator. She is currently on the volume assist control mode, rate is 16, tidal volume 400, FiO2 60%, and PEEP of 5. The blood gases show a PaO2 of 99, a PaCO2 of 40, and a pH of 7.44. She also remains on lactated Ringer's at 20 mL an hour, propofol was turned off for the spontaneous breathing trial, and she's been weaned off of norepinephrine. She is receiving vital AF, at a rate of 30 mL an hour, with a goal of 57 mL an hour. We placed the patient on pressure support of 5 CPAP of 5, and stayed in the room to observe her response to the spontaneous breathing trial. Unfortunately, the patient's respiratory rate went up above 40, and a tidal volumes dropped down to 200 range. Her minute volume was quite high, and the patient was placed back on the volume assist control mode. After the failed spontaneous breathing trial, the patient's tidal volume was dropped down to 350, her FiO2 was decreased to 50%, and the peak level was increased from 5 to 8 cm water. White count is 12.8, hemoglobin 8, hematocrit 23.5, and platelet count 210,000. Blood gases have been reviewed. Sodium 139, potassium 3.6, chlorides 107, CO2 27, anion gap 5, BUN 33, and creatinine 0.64. Chest x-ray shows a right lower lobe infiltrate and my opinion. Progress note dated 07/31/2020 75-year-old female, that was admitted to the hospital on July 21. She went to the operating room on July 27 for a three-vessel bypass grafting with Dr. Alan. The patient has never been extubated and unfortunately, she developed a right cerebellar CVA. She currently remains on the ventilator, on the volume assist control modality. She is on a rate of 16, tidal volume 350, FiO2 50%, and a PEEP of 8. Arterial blood gases show a PaO2 of 76, PaCO2 44, and a pH of 7.4. The patient is getting lactated Ringer's at KVO, amiodarone at 0.5 mg/m, and propofol at 30 mcg/kg/m. In addition, the patient's on vital AF 1.2 at 57, with a goal of 57 mL an hour. Today, we attempted a daily interruption of sedation and a spontaneous breathing trial. As noted yesterday, she failed her trial. Today, we placed her on PSV 8, and CPAP of 5. Currently, she is doing a bit better today. A Dobbhoff tube was placed yesterday. Unfortunately, she appears to be weaker on the right side. The left side she does not move at all. In the end, she may end up with the tracheostomy tube and a ET tube. Yesterday, after the spontaneous breathing trial, the patient unfortunately developed atrial fibrillation with RVR, and that is why the patient is on amiodarone. Objective - Vital Signs Vital signs: Vital Signs Temp 98.7 F 07/31/20 08:00 Pulse 66 07/31/20 08:30 Resp 17 07/31/20 08:30 BP 114/53 07/31/20 08:30 Pulse Ox 99 07/31/20 08:00 Intake & Output 07/30/20 07/31/20 07/31/20 18:59 06:59 18:59 Intake Total 4015.162 8932.733 342.95 Output Total 720 495 80 Balance 274.385 1876.733 262.95 Weight 90.5 kg Intake: IV 312 312 149 Lactated Ringers 1,000 ml 240 240 40 @ 20 mls/hr IV .Q24H [facility] Rx#:[id number] levETIRAcetam IV 500 mg 100 In Sodium Chloride 0.9% 100 ml @ 400 mls/hr IVPB Q12HR [facility] Rx#:[id number] pressure bag 72 72 9 Intake, IV Titration 493.007 506.733 49.95 Amount Amiodarone 450 mg In 240.283 Dextrose 5% in Water 250 ml @ 0.5 MG/MIN 16.667 mls/hr IV .Q15H [facility] Rx#: [id number] Norepinephrine 4 mg In 150.876 Sodium Chloride 0.9% 250 ml @ 0.05 MCG/KG/MIN 15. 754 mls/hr IV .Q16H8M [facility] Rx#:[id number] levETIRAcetam IV 500 mg 100 In Sodium Chloride 0.9% 100 ml @ 400 mls/hr IVPB Q12HR [facility] Rx#:[id number] propofoL 500 mg In Empty 242.131 266.45 49.95 Bag 1 bag @ Titrate IV . Q0M [facility] Rx#:[id number] Tube Feeding 340 599 114 Other 90 90 30 Output: Chest Tube Drainage 20 Left Lateral Chest 20 Urine 700 495 80 Other: Voiding Method Indwelling Catheter Indwelling Catheter ABP, PAP, CO, CI - Last Documented Arterial Blood Pressure 113/55 Pulmonary Artery Pressure 40/20 Cardiac Output 4.3 Cardiac Index 2.2 - Exam The patient is poorly responsive, is sedated, and on mechanical ventilation. For the spontaneous breathing trial, the patient was off sedation, is still unresponsive. HEENT examination is grossly unremarkable. Mucous membranes are moist. There is a orally placed endotracheal tube, and nasogastric tube. Neck supple. Full range of motion. No adenopathy thyromegaly or neck vein distention. Cardiovascular examination reveals an irregular rhythm and rate. S1-S2 normal. No S3 or S4. No discernible murmur noted. Heart sounds are distant. Heart rate is 124 bpm. Lungs reveal bilateral rhonchi. No wheezes or crackles. Breath sounds equal bilaterally. Abdomen soft bowel sounds are heard. No masses or tenderness. Extremities are intact. No cyanosis clubbing or edema. Skin is without rash or lesion. Neurologic examination reveals a poorly responsive 75-year-old female, who does not move her left side. - Labs CBC & Chem 7: 07/31/20 04:14 07/31/20 04:14 Labs: Abnormal Lab Results - Last 24 Hours (Table) 07/30/20 07/30/20 07/30/20 Range/Units 11:41 16:30 20:08 WBC (3.8-10.6) k/uL RBC (3.80-5.40) m/uL Hgb (11.4-16.0) gm/dL Hct (34.0-46.0) % BUN (7-17) mg/dL Glucose (74-99) mg/dL POC Glucose (mg/dL) 159 H 117 H 131 H (75-99) mg/dL Calcium (8.4-10.2) mg/dL AST (14-36) U/L ALT (4-34) U/L Total Protein (6.3-8.2) g/dL Albumin (3.5-5.0) g/dL 07/31/20 07/31/20 07/31/20 Range/Units 01:27 04:14 04:14 WBC 13.5 H (3.8-10.6) k/uL RBC 2.50 L (3.80-5.40) m/uL Hgb 7.6 L (11.4-16.0) gm/dL Hct 22.9 L (34.0-46.0) % BUN 30 H (7-17) mg/dL Glucose 128 H (74-99) mg/dL POC Glucose (mg/dL) 119 H (75-99) mg/dL Calcium 7.9 L (8.4-10.2) mg/dL AST 147 H (14-36) U/L ALT 106 H (4-34) U/L Total Protein 5.0 L (6.3-8.2) g/dL Albumin 2.8 L (3.5-5.0) g/dL 07/31/20 Range/Units 07:48 WBC (3.8-10.6) k/uL RBC (3.80-5.40) m/uL Hgb (11.4-16.0) gm/dL Hct (34.0-46.0) % BUN (7-17) mg/dL Glucose (74-99) mg/dL POC Glucose (mg/dL) 150 H (75-99) mg/dL Calcium (8.4-10.2) mg/dL AST (14-36) U/L ALT (4-34) U/L Total Protein (6.3-8.2) g/dL Albumin (3.5-5.0) g/dL Assessment and Plan Assessment: Postoperative day #4, status post three-vessel bypass grafting. Routine postoperative ventilator management. The patient remains on the ventilator because of her recent ischemic CVA. Postoperative acute/subacute right cerebellar infarct. Left-sided hemiparesis. Remote history of non-small cell lung cancer, with previous lobectomy. Prior history of tobacco use. Mild COPD based on PFTs. Family history of premature coronary artery disease. History of hypertension. Peripheral vascular occlusive disease. Degenerative joint disease. Hyperlipidemia. Chronic insomnia. History of postoperative anemia. Plan: Plan dated 07/31/2020. The patient will again have a daily interruption of sedation, and a spontaneous breathing trial. The patient's PSV will be set at 8, with the CPAP of 5 with a weaning trial. If she develops atrial fibrillation with RVR, or deterioration of vital signs, the patient will be placed back on the mechanical ventilator. Currently, her white count is 13.5, with a hemoglobin of 7.6, and hematocrit 22.9. Platelet count is 273,000. Sodium is 137, potassium 3.5, chlorides 104, CO2 25, anion gap 8, BUN 30, and a creatinine of 0.56. AST is 147 with an ALT of 106. Chest x-ray is consistent with mild fluid overload and small bilateral pleural effusions. Her medications are reviewed. Her drips include amiodarone at 0.5 mg/m, and propofol at 30 mcg/kg/m. We will continue to follow and make recommendations were appropriate. Hopefully, she'll do a bit better on her spontaneous breathing trial today. Overall prognosis is poor. She may end up with a tracheostomy tube and a feeding tube. Time with Patient: Greater than 30
[2020-07-31] MEDS ORDERED: METOPROLOL TARTRATE 12.5 MG TAB PO STA (11:07)
[2020-07-31] MEDS ORDERED: FUROSEMIDE 10 MG/ML 2 ML VIAL IV ONE (12:00)
--- NOTE | 2020-07-31 12:19 | P.PN ---
Subjective Progress Note Date: 07/31/20 07/31/2020: Patient was seen at 10:10 AM. Patient has been off sedation since 9 AM. Patient does open her eyes, but gaze upwards into the right. Pupils are round and reacting. Patient is completely flaccid on the left side. Patient right arm also is flaccid. Very minimal movement of the right leg. 07/30/2020 Patient was seen for initial consultation by Dr. Matt Luong on 07/28/2020. Please refer to his detailed report. This is a follow-up performed. Patient came to the hospital with chest pain, underwent CABG on 07/27/2020. After patient was off sedation, was noted to have left-sided weakness. CT head showed acute right cerebellar infarct and chronic right parietal ischemic infarct. Patient has been severely encephalopathic. Patient is having some abnormal eye movement, for which EEG was performed, which revealed burst and suppression activity likely due to medication effect propofol. There is no focal slowing or obvious epileptiform activity. Clinical correlation is recommended. Patient was placed on Keppra 500 mg twice a day after loading dose of 1000 mg. Patient at present is on propofol 40 g. When the sedation is decreased, patient moves her right arm and right leg spontaneously but non-purposefully. Her left arm is flaccid. She has some movement in the left leg but not as good as the right side. Patient has developed atrial fibrillation with rapid ventricular rate overnight, for which she was started on amiodarone drip. This morning at 10:30 she converted back to normal sinus rhythm. Patient had a repeat CT head performed 07/29/2020, which revealed no significant change. Relatively recent ischemic insult in the right cerebellar hemisphere. No evidence for hemorrhagic transformation. This probably would not explain left hemiparesis as noted on e xamination by the staff. Patient at present is sedated, therefore examination limited. Objective - Vital Signs Vital signs: Vital Signs Temp 98.7 F 07/31/20 08:00 Pulse 123 H 07/31/20 11:17 Resp 23 07/31/20 11:17 BP 125/73 07/31/20 10:30 Pulse Ox 95 07/31/20 09:30 Intake & Output 07/30/20 07/31/20 07/31/20 18:59 06:59 18:59 Intake Total 7255.916 4797.733 432.95 Output Total 720 495 125 Balance 658.819 4769.733 307.95 Weight 90.5 kg Intake: IV 312 312 152 Lactated Ringers 1,000 ml 240 240 40 @ 20 mls/hr IV .Q24H [facility] Rx#:[id number] levETIRAcetam IV 500 mg 100 In Sodium Chloride 0.9% 100 ml @ 400 mls/hr IVPB Q12HR [facility] Rx#:[id number] pressure bag 72 72 12 Intake, IV Titration 493.007 506.733 49.95 Amount Amiodarone 450 mg In 240.283 Dextrose 5% in Water 250 ml @ 0.5 MG/MIN 16.667 mls/hr IV .Q15H [facility] Rx#: [id number] Norepinephrine 4 mg In 150.876 Sodium Chloride 0.9% 250 ml @ 0.05 MCG/KG/MIN 15. 754 mls/hr IV .Q16H8M [facility] Rx#:[id number] levETIRAcetam IV 500 mg 100 In Sodium Chloride 0.9% 100 ml @ 400 mls/hr IVPB Q12HR [facility] Rx#:[id number] propofoL 500 mg In Empty 242.131 266.45 49.95 Bag 1 bag @ Titrate IV . Q0M [facility] Rx#:[id number] Tube Feeding 340 599 171 Other 90 90 60 Output: Chest Tube Drainage 20 Left Lateral Chest 20 Urine 700 495 125 Other: Voiding Method Indwelling Catheter Indwelling Catheter ABP, PAP, CO, CI - Last Documented Arterial Blood Pressure 113/55 Pulmonary Artery Pressure 40/20 Cardiac Output 4.3 Cardiac Index 2.2 - Exam Patient is off sedation. Her eyes are open, but gaze is upwards and sometimes to the right. Pupils are round and reacting. Patient is on mechanical ventilation. Patient is flaccid on the left side. Patient right arm is also flaccid, not responding to noxious stimuli. Patient have some movement of the right leg. According to the nurse, she was moving right arm and leg spontaneously very well. Patient has bilateral Babinski. No obvious seizure- like activity. - Labs CBC & Chem 7: 08/01/20 03:50 08/01/20 03:50 Labs: Abnormal Lab Results - Last 24 Hours (Table) 07/30/20 07/30/20 07/31/20 Range/Units 16:30 20:08 01:27 WBC (3.8-10.6) k/uL RBC (3.80-5.40) m/uL Hgb (11.4-16.0) gm/dL Hct (34.0-46.0) % ABG pO2 (83-108) mmHg ABG HCO3 (21-25) mmol/L ABG Total CO2 (19-24) mmol/L BUN (7-17) mg/dL Glucose (74-99) mg/dL POC Glucose (mg/dL) 117 H 131 H 119 H (75-99) mg/dL Calcium (8.4-10.2) mg/dL AST (14-36) U/L ALT (4-34) U/L Total Protein (6.3-8.2) g/dL Albumin (3.5-5.0) g/dL 07/31/20 07/31/20 07/31/20 Range/Units 04:14 04:14 04:50 WBC 13.5 H (3.8-10.6) k/uL RBC 2.50 L (3.80-5.40) m/uL Hgb 7.6 L (11.4-16.0) gm/dL Hct 22.9 L (34.0-46.0) % ABG pO2 76 L (83-108) mmHg ABG HCO3 27 H (21-25) mmol/L ABG Total CO2 29 H (19-24) mmol/L BUN 30 H (7-17) mg/dL Glucose 128 H (74-99) mg/dL POC Glucose (mg/dL) (75-99) mg/dL Calcium 7.9 L (8.4-10.2) mg/dL AST 147 H (14-36) U/L ALT 106 H (4-34) U/L Total Protein 5.0 L (6.3-8.2) g/dL Albumin 2.8 L (3.5-5.0) g/dL 07/31/20 Range/Units 07:48 WBC (3.8-10.6) k/uL RBC (3.80-5.40) m/uL Hgb (11.4-16.0) gm/dL Hct (34.0-46.0) % ABG pO2 (83-108) mmHg ABG HCO3 (21-25) mmol/L ABG Total CO2 (19-24) mmol/L BUN (7-17) mg/dL Glucose (74-99) mg/dL POC Glucose (mg/dL) 150 H (75-99) mg/dL Calcium (8.4-10.2) mg/dL AST (14-36) U/L ALT (4-34) U/L Total Protein (6.3-8.2) g/dL Albumin (3.5-5.0) g/dL Assessment and Plan Assessment: * Acute bilateral cerebellar ischemic stroke (Right>left), as well as subacute evolving ischemic infarction involving the right MCA/TAZ watershed territory with left hemiplegia. Computed tomography scan also showed acute to subacute left caudate head ischemic infarction. The strokes were noted post CABG 07/27/2020. Patient probably had showers of emboli from cardiac source. Stroke likely cardioembolic. * New onset atrial fibrillation, but now back in sinus rhythm (with amiodarone). * Left hemiplegia, not able to be explained by "right cerebellar stroke". Patient probably had showers of emboli from cardiac source. * Bilateral ICA stenosis > 75% per CTA, however no significant stenosis per carotid Doppler. * Altered mental status probably due to ischemic encephalopathy, with superimposed toxic metabolic causes. * Peripheral arterial disease with history of lower extremity stenting * History of lung cancer status post right lower lobectomy * Anemia * Hypertension * Hyperlipidemia * X tobacco use. Plan: * Patient currently on dual antiplatelet medications. Not a candidate for anticoagulation because of recent cardiac surgery, and recent multiple CVA. * Suggest MRI of the brain to evaluate for extent of the strokes, when possible. * Continue high-dose statins. * Patient on heparin subcu for DVT prophylaxis. * Prognosis very guarded based upon computed tomography scan results. * Reviewed CT scans with the radiologist, who agreed with evidence of multiple bilateral cerebellar and hemispheric acute/subacute ischemic strokes. * We'll try to speak to the family as well.
[2020-07-31 12:54] LABS: Glucose,Whole Blood 166 mg/dL (75-99)
[2020-07-31] MEDS ORDERED: LIDOCAINE 1% INJ 10MG/ML (20 ML MDV) ONE (14:05)
[2020-07-31] MEDS ORDERED: LIDOCAINE 1% INJ 10MG/ML (20 ML MDV) SQ ONE (14:22)
--- NOTE | 2020-07-31 14:53 | P.PN ---
Subjective Progress Note Date: 07/31/20 Principal diagnosis: Carotid stenosis, CVA Should seen and examined in the ICU. No acute changes through the night. Patient still nonresponsive. Unable to follow commands. Sedation is being weaned this morning. Patient went into A. fib and started on metoprolol. Objective - Vital Signs Vital signs: Vital Signs Temp 98.7 F 07/31/20 08:00 Pulse 123 H 07/31/20 11:17 Resp 23 07/31/20 11:17 BP 125/73 07/31/20 10:30 Pulse Ox 95 07/31/20 09:30 Intake & Output 07/30/20 07/31/20 07/31/20 18:59 06:59 18:59 Intake Total 2515.851 6204.733 432.95 Output Total 720 495 125 Balance 866.011 0432.733 307.95 Weight 90.5 kg Intake: IV 312 312 152 Lactated Ringers 1,000 ml 240 240 40 @ 20 mls/hr IV .Q24H [facility] Rx#:[id number] levETIRAcetam IV 500 mg 100 In Sodium Chloride 0.9% 100 ml @ 400 mls/hr IVPB Q12HR [facility] Rx#:[id number] pressure bag 72 72 12 Intake, IV Titration 493.007 506.733 49.95 Amount Amiodarone 450 mg In 240.283 Dextrose 5% in Water 250 ml @ 0.5 MG/MIN 16.667 mls/hr IV .Q15H [facility] Rx#: [id number] Norepinephrine 4 mg In 150.876 Sodium Chloride 0.9% 250 ml @ 0.05 MCG/KG/MIN 15. 754 mls/hr IV .Q16H8M [facility] Rx#:[id number] levETIRAcetam IV 500 mg 100 In Sodium Chloride 0.9% 100 ml @ 400 mls/hr IVPB Q12HR [facility] Rx#:[id number] propofoL 500 mg In Empty 242.131 266.45 49.95 Bag 1 bag @ Titrate IV . Q0M [facility] Rx#:[id number] Tube Feeding 340 599 171 Other 90 90 60 Output: Chest Tube Drainage 20 Left Lateral Chest 20 Urine 700 495 125 Other: Voiding Method Indwelling Catheter Indwelling Catheter ABP, PAP, CO, CI - Last Documented Arterial Blood Pressure 113/55 Pulmonary Artery Pressure 40/20 Cardiac Output 4.3 Cardiac Index 2.2 - Exam General appearance: The patient is dated and intubated. HET: Head is normocephalic and atraumatic. Upstroke deviated gaze. Neck: Supple without lymphadenopathy. Trachea midline. Heart: S1 S2. Regular rate and rhythm. Lungs: No crackles or wheezes are heard. Mechanical ventilation Abdomen: Soft, nontender, nondistended. Extremities: Lateral lower extremities with edema with compression stockings. Neurological: UnAble to follow commands. Left upper and lower extremity weakness/no movement. Patient was able to move her right upper extremity prior to being re-sedated. - Labs CBC & Chem 7: 07/31/20 04:14 07/31/20 04:14 Labs: Abnormal Lab Results - Last 24 Hours (Table) 07/30/20 07/30/20 07/30/20 Range/Units 11:41 16:30 20:08 WBC (3.8-10.6) k/uL RBC (3.80-5.40) m/uL Hgb (11.4-16.0) gm/dL Hct (34.0-46.0) % BUN (7-17) mg/dL Glucose (74-99) mg/dL POC Glucose (mg/dL) 159 H 117 H 131 H (75-99) mg/dL Calcium (8.4-10.2) mg/dL AST (14-36) U/L ALT (4-34) U/L Total Protein (6.3-8.2) g/dL Albumin (3.5-5.0) g/dL 07/31/20 07/31/20 07/31/20 Range/Units 01:27 04:14 04:14 WBC 13.5 H (3.8-10.6) k/uL RBC 2.50 L (3.80-5.40) m/uL Hgb 7.6 L (11.4-16.0) gm/dL Hct 22.9 L (34.0-46.0) % BUN 30 H (7-17) mg/dL Glucose 128 H (74-99) mg/dL POC Glucose (mg/dL) 119 H (75-99) mg/dL Calcium 7.9 L (8.4-10.2) mg/dL AST 147 H (14-36) U/L ALT 106 H (4-34) U/L Total Protein 5.0 L (6.3-8.2) g/dL Albumin 2.8 L (3.5-5.0) g/dL 07/31/20 Range/Units 07:48 WBC (3.8-10.6) k/uL RBC (3.80-5.40) m/uL Hgb (11.4-16.0) gm/dL Hct (34.0-46.0) % BUN (7-17) mg/dL Glucose (74-99) mg/dL POC Glucose (mg/dL) 150 H (75-99) mg/dL Calcium (8.4-10.2) mg/dL AST (14-36) U/L ALT (4-34) U/L Total Protein (6.3-8.2) g/dL Albumin (3.5-5.0) g/dL Assessment and Plan Assessment: 1. Symptomatic right carotid stenosis with discordant findings from CT angiogram and carotid ultrasound 2. New bilateral cerebellar ischemic stroke right greater than left 3. Coronary artery disease status post cardiac catheterization and CABG on 07/27/2020 4. History of peripheral arterial disease with lower extremity stenting 5. History of lung cancer status post right lower lobectomy 6. Hypertension 7. Hyperlipidemia 8. Tobacco abuse Plan: 1. Continue supportive care and ICU management 2. Continue with aspirin, Plavix, and Lipitor 3. Continue with recommendations from neurology 4. Patient will be a candidate for procedure for her symptomatic right internal carotid stenosis she becomes medically stable 5. No indication for any acute vascular surgical intervention at this time Chief for this consultation, we will be on standby. If patient patient's condition improves and is a candidate for vascular surgery please do not hesitate to call us back. The impression and plan of care has been dictated as directed. I performed a history and examination of this patient, discussed the same with the dictator. I agree with the dictator's note ,documented as a scribe. Any additional findings or plans will be noted.
--- NOTE | 2020-07-31 14:57 | XR ---
EXAMINATION TYPE: XR chest 1V confirm line [facility] DATE OF EXAM: 07/31/2020 COMPARISON: 07/31/2020 HISTORY: PICC line TECHNIQUE: Single frontal view of the chest is obtained. FINDINGS: ET and NG tube stable. Stimulator device noted. Bilateral diffuse interstitial pattern wit h basilar consolidation and small effusion stable. No pneumothorax. Left-sided chest tube has been re moved. IMPRESSION: 1. PICC line seen with the tip overlying the SVC. 2. Stable diffuse pleural-parenchymal changes.
[2020-07-31 16:26] LABS: Glucose,Whole Blood 159 mg/dL (75-99)
[2020-07-31 20:09] LABS: Glucose,Whole Blood 115 mg/dL (75-99)
[2020-07-31] MEDS: SENNOSIDES-DOCUSATE SODIUM 1 EACH TAB PO SCH (20:16)
[2020-07-31] MEDS: METOPROLOL TARTRATE 25 MG TAB PO SCH (20:17)
[2020-07-31] MEDS: EZETIMIBE 10 MG TAB PO SCH (20:17)
[2020-07-31] MEDS: ATORVASTATIN 80 MG TAB PO SCH (20:17)
[2020-07-31] MEDS: CHLORHEXIDINE GLUCONATE 15 ML CUP MUCOUS MEM SCH (20:17)
--- NOTE | 2020-07-31 22:22 | P.PN ---
Progress Note - Text Progress Note Date: 07/31/20 Chief Complaint: Chest pain History of presenting complaint: This is a pleasant 75-year-old patient of Dr. Derrick Neal. Chronic stable medical conditions include COPD, hyperlipidemia, hypertension, ostial arthritis, lung cancer 6 years ago, peripheral artery disease, coronary artery stent, peripheral stents, anxiety depression. Patient presented after she was having central chest pressure at home then went to both the shoulder blades for the arms. Patient became nauseated. No dizziness or lightheadedness. She shortness of breath. No perspiration. Symptoms most lost about 40 minutes she was taken to [facility]. She was similar episode about 2 weeks ago. Transferred down here. Has some lower extremity edema Admitted with unstable angina. underwent cardiac catheterization. Found to have severe triple-vessel coronary artery disease. July 27-underwent coronary bypass 3, ligation of left atrial appendage. Patient received a unit of blood.postsurgery was found to have weakness on the left side.stroke was noted on the computed tomography scan. Including lacunar infarct.patient has been in and out of atrial fibrillation Today-ICU- ventilator:FiO2 59 PEEP of 5. Patient has been in and out of atrial fibrillation. Drips include IV propofol. Getting started on IV amiodarone. 2 feeding at 57 mL an hour. computed tomography scan of the brain reviewed by Dr. Carrion: Acute bilateral cerebellar ischemic stroke as well as subacute evolving ischemic infarction involving the right MCA/TAZ watershed territory left caudate head ischemic infarction. [place] to be embolic. Review of systems: Patient intubated Active Medications Hydrocodone Bitart/Acetaminophen (Hydrocodone/Apap 5-325mg 1 Each Tab) 1 each PO Q4HR PRN PRN Reason: Moderate Pain Albuterol/Ipratropium (Ipratropium-Albuterol 3 Ml Neb) 3 ml INHALATION RT-Q2H PRN PRN Reason: Shortness Of Breath Or Wheezing Albuterol/Ipratropium (Ipratropium-Albuterol 3 Ml Neb) 3 ml INHALATION RT-QID [facility] Last Admin: 07/31/20 19:11 Dose: 3 ml Documented by: Aspirin (Aspirin 325 Mg Tab) 325 mg PO DAILY [facility] Last Admin: 07/31/20 09:46 Dose: 325 mg Documented by: Atorvastatin Calcium (Atorvastatin 80 Mg Tab) 80 mg PO HS [facility] Last Admin: 07/31/20 20:17 Dose: 80 mg Documented by: Benzocaine/Menthol (Benzocaine/Menthol Lozeng 1 Each Lozenge) 1 each MUCOUS MEM Q2H PRN PRN Reason: Sore Throat Bisacodyl (Bisacodyl 10 Mg Supp) 10 mg RECTAL DAILY PRN PRN Reason: Constipation Chlorhexidine Gluconate (Chlorhexidine Gluconate 15 Ml Cup) 15 ml MUCOUS MEM BID [facility] Last Admin: 07/31/20 20:17 Dose: 15 ml Documented by: Clopidogrel Bisulfate (Clopidogrel 75 Mg Tab) 75 mg PO DAILY [facility] Last Admin: 07/31/20 09:46 Dose: 75 mg Documented by: Ezetimibe (Ezetimibe 10 Mg Tab) 10 mg PO HS [facility] Last Admin: 07/31/20 20:17 Dose: 10 mg Documented by: Heparin Sodium (Porcine) (Heparin Sodium,Porcine 5,000 Unit/Ml 1 Ml Vial) 5,000 unit SQ Q8HR [facility] Last Admin: 07/31/20 16:13 Dose: 5,000 unit Documented by: Norepinephrine Bitartrate 4 mg (/ Sodium Chloride) 254 mls @ 15.754 mls/hr IV .Q16H8M [facility]; Protocol Last Admin: 07/31/20 15:27 Dose: Not Given Documented by: Amiodarone HCl 150 mg/ (Dextrose/Water) 103 mls @ 618 mls/hr IV .Q10M PRN; Protocol PRN Reason: A.FIB/FLUTTER Last Admin: 07/31/20 21:39 Dose: 618 mls/hr Documented by: Amiodarone HCl 360 mg/ (Dextrose/Water) 207.2 mls @ 34.533 mls/hr IV .Q6H PRN; Protocol PRN Reason: A.FIB/FLUTTER Last Admin: 07/31/20 21:39 Dose: 1 mg/min, 34.533 mls/hr Documented by: Amiodarone HCl 450 mg/ (Dextrose/Water) 250 mls @ 16.667 mls/hr IV .Q15H PRN; Protocol PRN Reason: A.FIB/FLUTTER Lactated Ringer's (Lactated Ringers) 1,000 mls @ 20 mls/hr IV .Q24H [facility] Last Admin: 07/31/20 02:43 Dose: 20 mls/hr Documented by: Calcium Gluconate 2 gm/ Sodium (Chloride) 120 mls @ 100 mls/hr IVPB ONCE PRN PRN Reason: Ionized Calcium less than 4.4 Stop: 08/06/20 14:16 Propofol 500 mg/ IV Solution 50 mls @ 0 mls/hr IV .Q0M [facility]; Protocol Last Titration: 07/31/20 22:06 Dose: 35 mcg/kg/min, 19.005 mls/hr Documented by: Levetiracetam 500 mg/ Sodium (Chloride) 105 mls @ 400 mls/hr IVPB Q12HR [facility] Last Admin: 07/31/20 20:17 Dose: 400 mls/hr Documented by: Insulin Aspart (Insulin Aspart (Novolog) 100 Unit/Ml Vial) 0 unit SQ Q4HR [facility]; Protocol Last Admin: 07/31/20 20:16 Dose: Not Given Documented by: Magnesium Hydroxide (Magnesium Hydroxide 2,400 Mg/10 Ml Cup) 2,400 mg PO BID PRN PRN Reason: Constipation Metoclopramide HCl (Metoclopramide 5 Mg/Ml 2 Ml Vial) 10 mg IVP Q4H PRN PRN Reason: Nausea And Vomiting Metoprolol Tartrate (Metoprolol Tartrate 25 Mg Tab) 25 mg PO BID [facility] Last Admin: 07/31/20 20:17 Dose: 25 mg Documented by: Miscellaneous Information (Potassium Replacement Protocol 1 Each Misc) 1 each MISCELLANE DAILY PRN; Protocol PRN Reason: Per Protocol Miscellaneous Information (Magnesium Replacement Protocol 1 Each Misc) 1 each MISCELLANE DAILY PRN; Protocol PRN Reason: Per Protocol Miscellaneous Information (Phosphorus Replacement Protoco 1 Each Misc) 1 each MISCELLANE DAILY PRN; Protocol PRN Reason: Per Protocol Ondansetron HCl (Ondansetron 4 Mg/2 Ml Vial) 4 mg IVP Q6HR PRN PRN Reason: Nausea And Vomiting Pantoprazole Sodium (Pantoprazole 40 Mg/10 Ml Vial) 40 mg IVP DAILY [facility] Last Admin: 07/31/20 07:59 Dose: 40 mg Documented by: Senna/Docusate Sodium (Sennosides-Docusate Sodium 1 Each Tab) 2 each PO HS [facility] Last Admin: 07/31/20 20:16 Dose: 2 each Documented by: Sertraline HCl (Sertraline 100 Mg Tab) 100 mg PO DAILY [facility] Last Admin: 07/31/20 09:46 Dose: 100 mg Documented by: Sodium Chloride (Sodium Chloride 0.9% Flush 10 Ml Syringe) 10 ml IV BID [facility] Last Admin: 07/31/20 20:18 Dose: 10 ml Documented by: Past medical history to include: CHF, COPD, hyperlipidemia, hypertension, coronary artery disease with stent, osteoporosis, lung cancer 6 years ago, peripheral arterial disease, anxiety depression Social history: Lives with her son. Smoked a pack a day since the teenage years. Stop in 2011. Some alcohol in the past Physical examination: VITAL SIGNS: afebrile, 36, 99/52, 92% on the ventilator GENERAL: Laying in bed, intubated, EYES: Pupils equal. Conjunctiva normal. HEENT: External appearance of nose and ears normal, oral cavity endotracheal tube. NECK: JVD unable to assess; masses not palpable. HEART: First and second heart sounds are normal; no edema. LUNGS: Respiratory rate increased; decreased breath sounds. ABDOMEN: Soft, nontender, liver spleen not palpable, no masses palpable. Da Silva catheter NEURO: Weakness in both upper limbs. PSYCH: Unable to assess MUSCULOSKELETAL: Evidence of OA Investigations: July 31: WBC 13.5 hemoglobin 7.6 potassium 3.5 creatinine 0.56 AST 147 ALT 106 July 30: WBC 12.8 hemoglobin 8 potassium 3.6 creatinine 0.64 July 29: White count 11.5 hemoglobin 6.9 platelets 210 July 28: White count 10.7 hemoglobin 7.4 platelets 195 potassium 3.9 creatinine 0.58 July 27: Incontinent 12.6 hemoglobin 7.7 platelets 199 potassium 4.5 creatinine 0.56 albumin 3.3 July 22: Potassium 4.1 creatinine 0.97 proBNP 1270 Cardiac lpqfhtxhicvszch-qdyuge-nlowfc disease 2-D echocardiogram-moderate concentric LVH, EF 50-55% hypokinetic galicia Troponin I 0.018, 0.012 Coronavirus [PCR]-not detected EKG tracing personally reviewed by me-normal sinus rhythm, PVC Assessment and plan: -Coronary artery bypass [id number] July 27. On Plavix, Lopressor, Zetia -Acute postprocedure blood loss anemia, as expected from surgery, received 1 unit of blood -Hypotensive shock from volume loss patient was on levo currently on a small dose -Unstable angina, POA -Triple-vessel coronary artery disease on cardiac catheterization. Plavix, Lopressor, Zetia -Acute on chronic congestive heart diastolic dysfunction EF 50-55% received IV Lasix. Stabilized. Follow clinically -COPD in a previous smoker, on DuoNeb -Hyperlipidemia, continue Lipitor -Essential hypertension, follow closely -Primary osteoarthritis, take Tylenol when necessary -History of lung cancer 6 years ago -Peripheral arterial disease with stenting, on aspirin and Plavix -Anxiety depression otherwise specified-on Zoloft -Chronic insomnia continue with melatonin -Paroxysmal atrial fibrillation.in and out of rapid atrial fibrillation being started on IV amiodarone -Acute bilateral cerebellar ischemic stroke as well as subacute evolving ischemic infarction involving the right MCA/TAZ watershed territory left caudate head ischemic infarction. [place] to be embolic./post surgical Patient remains intubated. discussed with Dr. Carrion from neurology. Prognosis guarded. Thank you Dr. Moffett
[2020-08-01 00:04] LABS: Glucose,Whole Blood 161 mg/dL (75-99)
[2020-08-01] MEDS: HYDROcodone/APAP 5-325MG 1 EACH TAB PO PRN (00:08)
[2020-08-01] MEDS: INSULIN ASPART (NovoLOG) 100 UNIT/ML VIAL SQ SCH ×6 (00:09→23:31)
[2020-08-01] MEDS: HEPARIN SODIUM,PORCINE 5,000 UNIT/ML 1 ML VIAL SQ SCH ×4 (00:10→23:33)
[2020-08-01] MEDS: LACTATED RINGERS 1,000 ML IV SCH (03:05)
[2020-08-01 03:54] LABS: Glucose,Whole Blood 145 mg/dL (75-99)
[2020-08-01 04:05] LABS: Basophils # (A) 0.1 k/uL (0-0.2); Basophils % (A) 1 %; Eosinophils # (A) 0.3 k/uL (0-0.7); Eosinophils % (A) 2 %; HCT 21.4 % (34.0-46.0); HGB 7.1 gm/dL (11.4-16.0); Lymphocytes # (A) 1.8 k/uL (1.0-4.8); Lymphocytes % (A) 13 %; MCH 30.2 pg (25.0-35.0); MCHC 32.9 g/dL (31.0-37.0); MCV 91.9 fL (80.0-100.0); Mean Platelet Volume 8.1; Monocytes % (A) 7 %; Neutrophils # (A) 10.3 k/uL (1.3-7.7); Neutrophils % (A) 76 %; Platelet Count 293 k/uL (150-450); RBC 2.33 m/uL (3.80-5.40); RDW 14.1 % (11.5-15.5); WBC 13.6 k/uL (3.8-10.6)
[2020-08-01 04:32] LABS: ALT 105 U/L (4-34); AST 107 U/L (14-36); African American GFR (CKD) >90 (>60 ml/min/1.73 sqM); Albumin 2.7 g/dL (3.5-5.0); Alkaline Phosphatase 110 U/L (38-126); Anion Gap 5 mmol/L; Blood Urea Nitrogen 29 mg/dL (7-17); Calcium 7.8 mg/dL (8.4-10.2); Carbon Dioxide 29 mmol/L (22-30); Chloride 102 mmol/L (98-107); Glucose 131 mg/dL (74-99); Non-African American GFR(CKD) >90 (>60 ml/min/1.73 sqM); Potassium 3.5 mmol/L (3.5-5.1); Sodium 136 mmol/L (137-145); Total Bilirubin 0.6 mg/dL (0.2-1.3); Total Protein 4.8 g/dL (6.3-8.2)
[2020-08-01 05:11] LABS: ABG Base Excess 5.4 mmol/L; ABG HCO3 29 mmol/L (21-25); ABG Oxygen Saturation 96.6 % (94-97); ABG PCO2 40 mmHg (35-45); ABG PH 7.47 (7.35-7.45); ABG PO2 77 mmHg (83-108); ABG TCO2 30 mmol/L (19-24); Allen Test Performed? Yes
[2020-08-01] MEDS: POTASSIUM BICARBONATE/CIT AC 20 MEQ TABLET.EFF NG-TUBE SCH ×2 (06:00→06:54)
[2020-08-01 07:50] LABS: Glucose,Whole Blood 153 mg/dL (75-99)
[2020-08-01] MEDS: IPRATROPIUM-ALBUTEROL 3 ML NEB INHALATION SCH ×4 (07:57→20:07)
--- NOTE | 2020-08-01 08:23 | IR ---
PICC LINE PLACEMENT: HISTORY: TPN PROCEDURE: Ultrasound guidance of PICC line placement. DIRECTOR OF EVENT MARKETING: Dr. Mahoney. COMPLICATIONS: None ANESTHESIA: 1. 1% Lidocaine locally. FINDINGS/TECHNIQUE: The procedure was explained to the patient. The risks, complications, benefits and alternatives were discussed and any questions were answered. Informed consent was obtained. The patient was placed supine on the fluoroscopic table and prepped and draped in the usual sterile fash ion. Utilizing a 21 gauge needle and sonographic guidance, access in the left basilic vein was achi eved and there is placement of a 0.018 guidewire. The vein is patent. A 5-F. sheath was placed over the guidewire. The guidewire and dilator were removed and a 5-F. Double lumen PICC line was placed through the sheath with the chest x-ray confirming the tip at the level of the SVC. The sheath was r emoved, the catheter was flushed and sutured into position. The patient was stable throughout the pr ocedure and remained stable upon discharge from the Department of Radiology. The vein puncture was patent under ultrasound. A keene scale image was obtained to document patency of the vein punctured. All elements of the maximal barrier technique were utilized. IMPRESSION: 1. Successful PICC line placement under ultrasound performed bedside within the ICU.
[2020-08-01] MEDS ORDERED: FUROSEMIDE 10 MG/ML 2 ML VIAL IV ONE (08:44)
--- NOTE | 2020-08-01 09:03 | P.PN ---
Subjective Progress Note Date: 08/01/20 Principal diagnosis: Coronary artery disease status post coronary artery bypass grafting Patient was reevaluated today on 07/28/2020, remains intubated and mechanically ventilated. Patient is now on assist control mode of mechanical ventilation with a rate of 16, volume is 450 FiO2 is 50% and PEEP of 5. Unfortunately the patient was noted to have poor movement of her left upper and left lower extremity last night, CT of the head last night showed acute/subacute area of infarction in the right cerebellum along with probable area of chronic infarction in the right parietal region I evaluated the patient this morning, seems to be extremely restless and agitated, seems to be neglecting the left side, and both eyes are deviated to the right and upwards. Patient seems to be moving her right side quite well, however the left side seems to be relatively weak although she was squeezing my hand with her left hand. And minimal movement noted in the left lower extremity. Patient is on Precedex, and seems to be agitated in spite of Precedex. Her ventilatory settings are reasonable, ABG is reasonable, patient is basically extubate overall, however her mental status is a bit concerning specially with her extreme agitation, keeps pulling and shaking the railing of the bed on the right side. Patient was given Ativan, and I have recommended increasing Precedex. She is not truly quite ready to be extubated today. Again my major concern is her mental status. And she is yet to be seen by neurology on consultation. Blood pressure is quite high, 160 systolic, norepinephrine was discontinued during my evaluation. She was on a very minimal dose of 0.1 mcg/kg/m of norepinephrine patient was also on milrinone. CBC is relatively normal hemoglobin is 7.4. ABG this morning showed a pO2 of 92 pCO2 of 38 pH of 7.45. This was on 50% FiO2. Electrolytes and renal profile are normal. Chest x-ray showed mostly postoperative changes of CABG 07/29/2020, I'm seeing the patient for a follow-up in the intensive care unit. This morning the patient is heavily sedated with propofol and she is calm and comfortable. Unfortunately with that, neurologic examination is not possible. I would suggest gradually cutting down the propofol and assess her neuro status and if needed utilize Precedex as an alternative sedative drip. Meanwhile, the patient remains essentially with enema to severe with a low dose of norepinephrine infusion running at 0.06 mcg/kg per minute. She has an adequate urine output. Cardiac rhythm is sinus. She has a left pleural and mediastinal chest tubes and output from those are in order of minimal, less than 100 over the past 24 hours. The chest x-ray showing cardiomegaly. There is some kyphoscoliosis of the chest. Chest tubes are in good location. ET tube is in good location. Atelectatic changes and some mild four-vessel congestion. Meanwhile, the patient's vent settings include an assist-control mode at the rate of 16 with a tidal volume of 450 and FiO2 of 40% with a PEEP of 5. The blood gases from this morning showed a pH of 7.49 with a pCO2 of 36 and pO2 of 82. On today's blood work, the patient's hemoglobin is down to 6.9 from 7.4. Platelets is at 210. 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 Intracranial cerebral arteries were essentially patent with nothing significantly stenotic. During our limited neurologic evaluation, the patient did not do mistreat any withdrawal with to painful stimulation. No Babinski. No clonus. Nevertheless, I was told by the nursing staff that she was able to move her right side yesterday and her left side once off sedation. Pupils are equal and reactive to light and order of 3 mm. No preferential gaze on today's evaluation. A sedation holiday will be given. She is on enteral nutrition. No other drips. No seizure activity. Neurologist on the case. She is on aspirin, Plavix, and she also on metoprolol 12.5 mg by mouth twice a day. She is also on high-dose statins. Progress note dated 05/29/2021. Currently, this is a 75-year-old female who was admitted to the hospital on July 21. She went to the operating room, on July 27 for a three-vessel bypass grafting with Dr. Alan. The patient has never been extubated. Unfortunately, she developed a right cerebellar CVA. She remains on the mechanical ventilator. She is currently on the volume assist control mode, rate is 16, tidal volume 400, FiO2 60%, and PEEP of 5. The blood gases show a PaO2 of 99, a PaCO2 of 40, and a pH of 7.44. She also remains on lactated Ringer's at 20 mL an hour, propofol was turned off for the spontaneous breathing trial, and she's been weaned off of norepinephrine. She is receiving vital AF, at a rate of 30 mL an hour, with a goal of 57 mL an hour. We placed the patient on pressure support of 5 CPAP of 5, and stayed in the room to observe her response to the spontaneous breathing trial. Unfortunately, the patient's respiratory rate went up above 40, and a tidal volumes dropped down to 200 range. Her minute volume was quite high, and the patient was placed back on the volume assist control mode. After the failed spontaneous breathing trial, the patient 's tidal volume was dropped down to 350, her FiO2 was decreased to 50%, and the peak level was increased from 5 to 8 cm water. White count is 12.8, hemoglobin 8, hematocrit 23.5, and platelet count 210,000. Blood gases have been reviewed. Sodium 139, potassium 3.6, chlorides 107, CO2 27, anion gap 5, BUN 33, and creatinine 0.64. Chest x-ray shows a right lower lobe infiltrate and my opinion. Progress note dated 07/31/2020 75-year-old female, that was admitted to the hospital on July 21. She went to the operating room on July 27 for a three-vessel bypass grafting with Dr. Alan. The patient has never been extubated and unfortunately, she developed a right cerebellar CVA. She currently remains on the ventilator, on the volume assist control modality. She is on a rate of 16, tidal volume 350, FiO2 50%, and a PEEP of 8. Arterial blood gases show a PaO2 of 76, PaCO2 44, and a pH of 7.4. The patient is getting lactated Ringer's at KVO, amiodarone at 0.5 mg/m, and propofol at 30 mcg/kg/m. In addition, the patient's on vital AF 1.2 at 57, with a goal of 57 mL an hour. Today, we attempted a daily interruption of sedation and a spontaneous breathing trial. As noted yesterday, she failed her trial. Today, we placed her on PSV 8, and CPAP of 5. Currently, she is doing a bit better today. A Dobbhoff tube was placed yesterday. Unfortunately, she appears to be weaker on the right side. The left side she does not move at all. In the end, she may end up with the tracheostomy tube and a ET tube. Yesterday, after the spontaneous breathing trial, the patient unfortunately developed atrial fibrillation with RVR, and that is why the patient is on amiodarone. The patient is seen today 08/01/2020 in follow-up in the intensive care unit. She remains intubated on the mechanical ventilator. Current settings assist- control of with a rate of 16, tidal volume 350, FiO2 50% and a PEEP of 8. Morning blood gases reveal a P O2 of 77, pCO2 of 40, pH 7.47. She remains sedated on propofol at 30 mcg/kg/m. Lactated Ringer's at KVO. She developed atrial fibrillation with rapid ventricular response. She is currently on amiodarone at 0.5 mg/m. She is being nourished with vital HP at 20 ML's per hour which is goal. She was given daily interruption of sedation. She develops A. fib RVR during a spontaneous breathing trials yesterday. We'll trial again today. His chest x-ray continues to show stable diffuse pleuroparenchymal changes. Endotracheal tube and gastric tubes are secured in place. Left-sided chest tube has been removed. PICC line in place. She is status post 1 unit of packed red blood cells this admission. Current hemoglobin 7.1. White count 13.6. Sodium 136. Potassium 3.5. Creatinine 0.55. AST 107. ALT 105. Albumin 2.7. She is continued on DuoNeb inhalations. Heparin for DVT prophylaxis. Objective - Vital Signs Vital signs: Vital Signs Temp 100.5 F H 08/01/20 04:00 Pulse 64 08/01/20 08:26 Resp 25 H 08/01/20 07:00 BP 114/58 08/01/20 07:00 Pulse Ox 98 08/01/20 07:00 Intake & Output 07/31/20 08/01/20 08/01/20 18:59 06:59 18:59 Intake Total 3208.495 8269.822 Output Total 830 515 Balance 258.615 518.822 Weight 90.5 kg 94.3 kg Intake: IV 299 360 Lactated Ringers 1,000 ml 160 260 @ 20 mls/hr IV .Q24H [facility] Rx#:[id number] levETIRAcetam IV 500 mg 100 100 In Sodium Chloride 0.9% 100 ml @ 400 mls/hr IVPB Q12HR [facility] Rx#:[id number] pressure bag 39 0 Intake, IV Titration 73.615 219.822 Amount propofoL 500 mg In Empty 73.615 219.822 Bag 1 bag @ Titrate IV . Q0M [facility] Rx#:[id number] Tube Feeding 626 364 Other 90 90 Output: Urine 830 515 Other: Voiding Method Indwelling Catheter Indwelling Catheter ABP, PAP, CO, CI - Last Documented Arterial Blood Pressure 113/55 Pulmonary Artery Pressure 40/20 Cardiac Output 4.3 Cardiac Index 2.2 - Exam 75 year-old intubated, sedated 75-year-old female patient. Poorly responsive, is sedated, and on mechanical ventilation. For the spontaneous breathing trial, the patient was off sedation, is still unresponsive. HEENT examination is grossly unremarkable. Mucous membranes are moist. There is a orally placed endotracheal tube, and nasogastric tube. Neck supple. Full range of motion. No adenopathy thyromegaly or neck vein distention. Cardiovascular examination reveals an irregular rhythm and rate. S1-S2 normal. No S3 or S4. No discernible murmur noted. Heart sounds are distant. Heart rate is 124 bpm. Lungs reveal bilateral rhonchi. No wheezes or crackles. Breath sounds equal bilaterally. Abdomen soft bowel sounds are heard. No masses or tenderness. Extremities are intact. No cyanosis clubbing or edema. Skin is without rash or lesion. Neurologic examination reveals a poorly responsive female, who does not move her left side. - Labs CBC & Chem 7: 08/01/20 03:50 08/01/20 03:50 Labs: Abnormal Lab Results - Last 24 Hours (Table) 07/31/20 07/31/20 07/31/20 Range/Units 04:50 12:53 16:25 WBC (3.8-10.6) k/uL RBC (3.80-5.40) m/uL Hgb (11.4-16.0) gm/dL Hct (34.0-46.0) % Neutrophils # (1.3-7.7) k/uL ABG pH (7.35-7.45) ABG pO2 76 L (83-108) mmHg ABG HCO3 27 H (21-25) mmol/L ABG Total CO2 29 H (19-24) mmol/L Sodium (137-145) mmol/L BUN (7-17) mg/dL Glucose (74-99) mg/dL POC Glucose (mg/dL) 166 H 159 H (75-99) mg/dL Calcium (8.4-10.2) mg/dL AST (14-36) U/L ALT (4-34) U/L Total Protein (6.3-8.2) g/dL Albumin (3.5-5.0) g/dL 07/31/20 08/01/20 08/01/20 Range/Units 20:07 00:02 03:50 WBC 13.6 H (3.8-10.6) k/uL RBC 2.33 L (3.80-5.40) m/uL Hgb 7.1 L (11.4-16.0) gm/dL Hct 21.4 L (34.0-46.0) % Neutrophils # 10.3 H (1.3-7.7) k/uL ABG pH (7.35-7.45) ABG pO2 (83-108) mmHg ABG HCO3 (21-25) mmol/L ABG Total CO2 (19-24) mmol/L Sodium (137-145) mmol/L BUN (7-17) mg/dL Glucose (74-99) mg/dL POC Glucose (mg/dL) 115 H 161 H (75-99) mg/dL Calcium (8.4-10.2) mg/dL AST (14-36) U/L ALT (4-34) U/L Total Protein (6.3-8.2) g/dL Albumin (3.5-5.0) g/dL 08/01/20 08/01/20 08/01/20 Range/Units 03:50 03:52 05:10 WBC (3.8-10.6) k/uL RBC (3.80-5.40) m/uL Hgb (11.4-16.0) gm/dL Hct (34.0-46.0) % Neutrophils # (1.3-7.7) k/uL ABG pH 7.47 H (7.35-7.45) ABG pO2 77 L (83-108) mmHg ABG HCO3 29 H (21-25) mmol/L ABG Total CO2 30 H (19-24) mmol/L Sodium 136 L (137-145) mmol/L BUN 29 H (7-17) mg/dL Glucose 131 H (74-99) mg/dL POC Glucose (mg/dL) 145 H (75-99) mg/dL Calcium 7.8 L (8.4-10.2) mg/dL AST 107 H (14-36) U/L ALT 105 H (4-34) U/L Total Protein 4.8 L (6.3-8.2) g/dL Albumin 2.7 L (3.5-5.0) g/dL 08/01/20 Range/Units 07:49 WBC (3.8-10.6) k/uL RBC (3.80-5.40) m/uL Hgb (11.4-16.0) gm/dL Hct (34.0-46.0) % Neutrophils # (1.3-7.7) k/uL ABG pH (7.35-7.45) ABG pO2 (83-108) mmHg ABG HCO3 (21-25) mmol/L ABG Total CO2 (19-24) mmol/L Sodium (137-145) mmol/L BUN (7-17) mg/dL Glucose (74-99) mg/dL POC Glucose (mg/dL) 153 H (75-99) mg/dL Calcium (8.4-10.2) mg/dL AST (14-36) U/L ALT (4-34) U/L Total Protein (6.3-8.2) g/dL Albumin (3.5-5.0) g/dL Assessment and Plan Assessment: Postoperative day #5, status post three-vessel bypass grafting. Routine postoperative ventilator management. The patient remains on the ventilator because of her recent ischemic CVA. Postoperative acute/subacute right cerebellar infarct. Left-sided hemiparesis. Remote history of non-small cell lung cancer, with previous lobectomy. Prior history of tobacco use. Mild COPD based on PFTs. Family history of premature coronary artery disease. History of hypertension. Peripheral vascular occlusive disease. Degenerative joint disease. Hyperlipidemia. Chronic insomnia. History of postoperative anemia. Plan: The patient was seen and evaluated by Dr. Luong Chest x-ray, ABGs and labs reviewed We will give her another daily interruption of sedation Trial pressure support of 8 CPAP of 5 with weaning parameters May require tracheostomy tube in PEG tube placement We will continue to follow and make further recommendations based on her c linical status Critical care time 38 minutes I, the cosigning physician, performed a history & physical examination of the patient. Lungs sounds with bilateral scattered rhonchi. Maintaining good O2 saturations in the 90s on 50% FiO2 and PEEP of 8 via the mechanical ventilator. I discussed the assessment and plan of care with my nurse practitioner, Sierra Feliciano. I attest to the above note as dictated by her.
--- NOTE | 2020-08-01 09:05 | XR ---
EXAMINATION TYPE: XR chest 1V portable DATE OF EXAM: 08/01/2020 COMPARISON: Chest x-ray 07/31/2020 HISTORY: Post cardiac surgery TECHNIQUE: Single frontal view of the chest is obtained. FINDINGS: Endotracheal tube and NG tube, Dobbhoff tube are present, there is a left-sided PICC line with the distal tip overlying the superior vena cava, thoracic cord stimulator lead present over the midthoracic spine, patient is post median sternotomy and left atrial appendage clip placement. Patien t is rotated. Bibasilar attenuation is increased, the hemidiaphragms remain obscured. No sizable pneu mothorax. There are overlying artifacts. Cardiac mediastinal silhouette is likely stable accounting f or differences in technique. IMPRESSION: Findings are similar to prior exam. Basilar atelectasis versus edema and congestive hear t failure, correlate for pneumonia
[2020-08-01] MEDS: NOREPINEPHRINE 4 MG in SODIUM CHLORIDE 0.9% 250 ML IV SCH (09:29)
[2020-08-01] MEDS: levETIRAcetam IV 500 MG in SODIUM CHLORIDE 0.9% 100 ML IVPB SCH ×2 (09:34→22:15)
[2020-08-01] MEDS: CHLORHEXIDINE GLUCONATE 15 ML CUP MUCOUS MEM SCH ×2 (09:34→23:33)
[2020-08-01] MEDS: CLOPIDOGREL 75 MG TAB PO SCH (09:35)
[2020-08-01] MEDS: PANTOPRAZOLE 40 MG/10 ML VIAL IVP SCH (09:35)
[2020-08-01] MEDS: ASPIRIN 325 MG TAB PO SCH (09:35)
[2020-08-01] MEDS: METOPROLOL TARTRATE 25 MG TAB PO SCH ×2 (09:35→23:32)
[2020-08-01] MEDS: SERTRALINE 100 MG TAB PO SCH (09:35)
--- NOTE | 2020-08-01 10:07 | PN ---
PROGRESS NOTE Mrs. Arguello is a 75-year-old female who presented with non ST-segment elevation myocardial infarction and evidence of congestive heart failure, underwent cardiac catheterization, was found to have severe triple-vessel coronary artery disease, underwent coronary artery bypass grafting and postoperatively in an attempt to wean her, she was found to have left-sided weakness. She remains intubated and sedated. She had a short burst of atrial fibrillation yesterday. She is back in sinus mechanism. Hemodynamically otherwise, she is stable. There is no evidence of ventricular tachycardia. She is on no vasopressor. Her urine output is stable. She is tolerating feeding tube. She has been followed by the neurology service. She is continued on aspirin, Lipitor 80 mg daily, Plavix 75 mg daily, Zetia 10 mg daily, subcu heparin, metoprolol tartrate 25 mg twice a day. PHYSICAL EXAMINATION: Blood pressure 114/50 with the heart rate in the 60s. LUNGS: Clear anteriorly. HEART: Regular rate and rhythm. S1, S2. No S3. No rub. ABDOMEN: Soft. Positive bowel sounds. No organomegaly. EXTREMITIES: No edema. IMPRESSION: 1. Status post coronary artery bypass grafting. 2. Postoperative cerebrovascular accident. 3. Respiratory failure, remains intubated. 4. Carotid disease. 5. Hypertension. 6. Hyperlipidemia. RECOMMENDATION: We will continue supportive care. Awaiting further recommendation from the neurologic service regarding further plan. At this time, we will continue on present therapy. If she has further episodes of atrial fibrillation, then she should be on oral amiodarone and consider initiating oral anticoagulation. MMODL / IJN: [id number] /
[2020-08-01 11:39] LABS: Glucose,Whole Blood 156 mg/dL (75-99)
--- NOTE | 2020-08-01 14:38 | P.PN ---
Subjective Progress Note Date: 08/01/20 Principal diagnosis: Triple-vessel coronary artery disease, unstable angina. Past medical history significant for coronary artery disease with previous myocardial infarction and stent placement, peripheral arterial disease with lower extremity stenting, lung cancer status post right lower lobectomy in 2011, hypertension, hyperlipidemia, COPD with previous tobacco dependence, anxiety/depression, family history of premature coronary artery disease with 2 of her sons having had coronary artery bypass grafting surgery, significant plaque formation more than 75% stenosis at the origins of both internal and external carotid arteries bilaterally on CTA. POD #5 coronary artery bypass grafting 3 vessels, left internal mammary artery to the left anterior descending artery, a reverse greater saphenous vein graft to the obtuse marginal artery, a reverse greater saphenous vein graft to the posterior descending artery, endoscopic harvesting of the right greater saphenous vein, ligation of the left atrial appendage using a 35 mm AtriClip, epi-aortic ultrasound and intraoperative transesophageal echocardiogram. Postoperative acute blood loss anemia, expected given hemodilution and cardiopulmonary bypass pump. Postoperative right acute/subacute cerebellar infarct on brain CT, unexpected, although possible complication of any open heart surgery, especially given patient's known history of significant arterial disease. Prolonged mechanical ventilation, unexpected, secondary to acute stroke. Paroxysmal atrial fibrillation, known common occurrence after open heart candida allie. The patient was seen in follow-up today 08/01/2020 under bedside in intensive care unit. Currently she is sedated on propofol drip at 35 mcg/kg/m, remains intubated with mechanical ventilator support, current mechanical ventilator settings are as follows, assist control 16, TV 350, FiO2 50% and PEEP of 8. Oxygen saturation on current mechanical ventilator settings are 98%. Bedside telemetry currently showing normal sinus rhythm heart rate 61 bpm, her night nurse did report that she did have an episode of atrial fibrillation lasting about one hour last evening. Amiodarone drip is currently infusing at 0.5 mg/m. Dobbhoff tube remains in place with continuous tube feedings at goal rate of 28 mL/h. Atrial and ventricular epicardial pacemaker wires in place and rounded. PICC line in place and functioning. Laboratory results this morning show a WBC count 13.6, hemoglobin 7.1, hematocrit 21.4, platelets 293, potassium 3.5, AST 107, ALT 105, BUN 29 and creatinine 0.55. T-max temperature in the last 24 hours is 100.5F. Patient underwent a CPAP trial yesterday from around 9:30 AM to 3:30 PM on a CPAP 5 pressure support 8. Patient was put back to assist control mode on the ventilator at 1530 due to elevated respiratory rate. The patient is not following any verbal commands at this time due to her sedation. Objective - Vital Signs Vital signs: Vital Signs Temp 98.8 F 08/01/20 12:00 Pulse 64 08/01/20 12:00 Resp 32 H 08/01/20 12:00 BP 107/57 08/01/20 12:00 Pulse Ox 97 08/01/20 12:00 Intake & Output 07/31/20 08/01/20 08/01/20 18:59 06:59 18:59 Intake Total 2414.093 1286.822 556.843 Output Total 830 515 620 Balance 258.615 518.822 -63.157 Weight 90.5 kg 94.3 kg Intake: IV 299 360 200 Lactated Ringers 1,000 ml 160 260 100 @ 20 mls/hr IV .Q24H [facility] Rx#:[id number] levETIRAcetam IV 500 mg 100 100 100 In Sodium Chloride 0.9% 100 ml @ 400 mls/hr IVPB Q12HR [facility] Rx#:[id number] pressure bag 39 0 Intake, IV Titration 73.615 219.822 96.843 Amount propofoL 500 mg In Empty 73.615 219.822 96.843 Bag 1 bag @ Titrate IV . Q0M [facility] Rx#:[id number] Tube Feeding 626 364 140 Other 90 90 120 Output: Urine 830 515 620 Other: Voiding Method Indwelling Catheter Indwelling Catheter Indwelling Catheter ABP, PAP, CO, CI - Last Documented Arterial Blood Pressure 113/55 Pulmonary Artery Pressure 40/20 Cardiac Output 4.3 Cardiac Index 2.2 - Constitutional Constitutional Comment(s): Patient remains intubated with mechanical ventilator support. Remain sedated on propofol drip at 35 mcg/kg/m. During her sedation holiday today the patient remains unresponsive and was not following any verbal stimuli. - EENT Eyes: Present: normal appearance. Absent: scleral icterus ENT: Absent: thrush - Neck Details: Neck is supple, no JVD. No adenopathy. - Respiratory Details: Lung sounds are essentially clear throughout with some scattered rhonchi, diminished bilateral bases. No wheezes or crackles. Respirations are symmetrical and nonlabored with mechanical ventilator support. Current mechanical ventilator settings are as follows, before meals 16, TV 350, FiO2 50% and PEEP of 8. Oxygen saturations are 98% on current mechanical ventilator settings. - Cardiovascular Details: Regular rhythm and rate. S1 and S2 present, negative for S3, gallop or murmur. Bedside telemetry showing normal sinus rhythm heart rate 61 BPM. Sternum is stable. Heart hugger is in place. Knee-high DEBI hose and sequential compression devices in place to her bilateral lower extremities. Atrial and ventricular epicardial pacemaker wires in place and grounded. Generalized +1 edema. - Gastrointestinal Gastrointestinal Comment(s): Abdomen is soft and nondistended. Hypoactive bowel sounds present in all 4 abdominal quadrants. Dobbhoff tube in place with vital high-protein to feeding infusing at a rate of 28 mL per hour. - Genitourinary Genitourinary Comment(s): Da Silva catheter for accurate I&O. Draining clear yellow urine. 385 mL output in the last 8 hours. - Integumentary Integumentary Comment(s): Skin is warm and dry. No clubbing or cyanosis is present. Midline sternal incision is clean, dry and approximated. No drainage or redness is present. Right lower extremity EVH site is clean, dry and approximated. No drainage redness is present. - Neurologic Neurologic Comment(s): Unable to accurately assess at this time as the patient is sedated with propofol drip at 35 mcg/kg/m. - Musculoskeletal Musculoskeletal Comment(s): Unable to accurately assess at this time as the patient is sedated with propofol drip at 35 mcg/kg/m. - Psychiatric Psychiatric Comment(s): Unable to accurately assess at this time as the patient is sedated with propofol drip at 35 mcg/kg/m. - Allied health notes Allied health notes reviewed: nursing - Labs CBC & Chem 7: 08/01/20 03:50 08/01/20 03:50 Labs: Abnormal Lab Results - Last 24 Hours (Table) 07/31/20 07/31/20 08/01/20 Range/Units 16:25 20:07 00:02 WBC (3.8-10.6) k/uL RBC (3.80-5.40) m/uL Hgb (11.4-16.0) gm/dL Hct (34.0-46.0) % Neutrophils # (1.3-7.7) k/uL ABG pH (7.35-7.45) ABG pO2 (83-108) mmHg ABG HCO3 (21-25) mmol/L ABG Total CO2 (19-24) mmol/L Sodium (137-145) mmol/L BUN (7-17) mg/dL Glucose (74-99) mg/dL POC Glucose (mg/dL) 159 H 115 H 161 H (75-99) mg/dL Calcium (8.4-10.2) mg/dL AST (14-36) U/L ALT (4-34) U/L Total Protein (6.3-8.2) g/dL Albumin (3.5-5.0) g/dL 08/01/20 08/01/20 08/01/20 Range/Units 03:50 03:50 03:52 WBC 13.6 H (3.8-10.6) k/uL RBC 2.33 L (3.80-5.40) m/uL Hgb 7.1 L (11.4-16.0) gm/dL Hct 21.4 L (34.0-46.0) % Neutrophils # 10.3 H (1.3-7.7) k/uL ABG pH (7.35-7.45) ABG pO2 (83-108) mmHg ABG HCO3 (21-25) mmol/L ABG Total CO2 (19-24) mmol/L Sodium 136 L (137-145) mmol/L BUN 29 H (7-17) mg/dL Glucose 131 H (74-99) mg/dL POC Glucose (mg/dL) 145 H (75-99) mg/dL Calcium 7.8 L (8.4-10.2) mg/dL AST 107 H (14-36) U/L ALT 105 H (4-34) U/L Total Protein 4.8 L (6.3-8.2) g/dL Albumin 2.7 L (3.5-5.0) g/dL 08/01/20 08/01/20 08/01/20 Range/Units 05:10 07:49 11:38 WBC (3.8-10.6) k/uL RBC (3.80-5.40) m/uL Hgb (11.4-16.0) gm/dL Hct (34.0-46.0) % Neutrophils # (1.3-7.7) k/uL ABG pH 7.47 H (7.35-7.45) ABG pO2 77 L (83-108) mmHg ABG HCO3 29 H (21-25) mmol/L ABG Total CO2 30 H (19-24) mmol/L Sodium (137-145) mmol/L BUN (7-17) mg/dL Glucose (74-99) mg/dL POC Glucose (mg/dL) 153 H 156 H (75-99) mg/dL Calcium (8.4-10.2) mg/dL AST (14-36) U/L ALT (4-34) U/L Total Protein (6.3-8.2) g/dL Albumin (3.5-5.0) g/dL - Imaging and Cardiology Chest x-ray: report reviewed, image reviewed Assessment and Plan Assessment: 1. Triple-vessel coronary artery disease, unstable angina, status post three- vessel CABG 2. History of coronary artery disease with previous myocardial infarction and stent placement 3. Peripheral arterial disease with lower extremity stenting 4. History of lung cancer status post right lower lobectomy 5. Hypertension, currently hypotensive requiring IV pressors 6. Hyperlipidemia, treated, cholesterol 152, LDL 85 7. COPD with previous tobacco dependence, preoperative FEV1 82% of predicted 8. Anxiety/depression 9. Family history of premature coronary artery disease 10. Postoperative acute blood loss anemia, expected, status post 1 unit packed red blood cell transfusion 11. Postoperative acute/subacute right cerebellar infarct, unexpected, with evidence of previous right parietal stroke 12. Bilateral internal carotid artery disease greater than 75% present on CTA 13. Prolonged mechanical ventilation 14. Paroxysmal atrial fibrillation, status post ligation of the left atrial appendage, currently sinus rhythm Plan: 1. Continue aspirin, statin, Plavix, and beta tran. Will increase beta tran therapy as tolerated. 2. Continue amiodarone for A. fib prophylaxis. No anticoagulation at this point. 3. Mechanical ventilation per pulmonology/critical care management. May wean to extubate when able. Bronchodilators per pulmonology/critical care management. 4. Atrial and ventricular epicardial pacemaker wires removed without incident. Patient was on bed rest for 1 hour post pacemaker wire removal. 5. Once extubated will increase activity as tolerated, work to improve movement on the left side. PT/OT/cardiac rehab following. 6. Once extubated will encourage incentive spirometry use 10 times every hour while awake. 7. Will monitor daily labs and chest x-rays. Electrolyte replacement per protocol. 8. GI/DVT prophylaxis. 9. Pain control with current when necessary orders. 10. Continue Da Silva catheter and record accurate I's and O's. 11. Strict accurate intake and output. Daily weights 12. Limit sedation as much as possible to be able to assess neuro status. 13. The patient son Saurav was updated on her care. 14. Social work consulted as patient will need rehab at discharge. 15. Lasix 20 mg IV 1 now. 16. Dulcolax suppository 1 now. 17. More recommendations to follow based on patient's clinical course. Time with Patient: Greater than 30
[2020-08-01] MEDS: bisacodyL 10 MG SUPP RECTAL PRN (14:39)
[2020-08-01 16:04] LABS: Glucose,Whole Blood 149 mg/dL (75-99)
--- NOTE | 2020-08-01 16:47 | P.PN ---
Subjective Progress Note Date: 08/01/20 08/01/2020: Patient continues to be on mechanical ventilation. Per nursing report, sedation was decreased from propofol 25 g down to 10 mcg, patient did not improve mentally, but became very tachycardic with respiration going up to 40/m. Therefore she was placed back on high-dose sedation. 07/31/2020: Patient was seen at 10:10 AM. Patient has been off sedation since 9 AM. Patient does open her eyes, but gaze upwards into the right. Pupils are round and reacting. Patient is completely flaccid on the left side. Patient right arm also is flaccid. Very minimal movement of the right leg. 07/30/2020 Patient was seen for initial consultation by Dr. Matt Luong on 07/28/2020. Please refer to his detailed report. This is a follow-up performed. Patient came to the hospital with chest pain, underwent CABG on 07/27/2020. After patient was off sedation, was noted to have left-sided weakness. CT head showed acute right cerebellar infarct and chronic right parietal ischemic infarct. Patient has been severely encephalopathic. Patient is having some abnormal eye movement, for which EEG was performed, which revealed burst and suppression activity likely due to medication effect propofol. There is no focal slowing or obvious epileptiform activity. Clinical correlation is recommended. Patient was placed on Keppra 500 mg twice a day after loading dose of 1000 mg. Patient at present is on propofol 40 g. When the sedation is decreased, patient moves her right arm and right leg spontaneously but non-purposefully. Her left arm is flaccid. She has some movement in the left leg but not as good as the right side. Patient has developed atrial fibrillation with rapid ventricular rate overnight, for which she was started on amiodarone drip. This morning at 10:30 she converted back to normal sinus rhythm. Patient had a repeat CT head performed 07/29/2020, which revealed no significant change. Relatively recent ischemic insult in the right cerebellar hemisphere. No evidence for hemorrhagic transformation. This probably would not explain left hemiparesis as noted on examination by the staff. Patient at present is sedated, therefore examination limited. Objective - Vital Signs Vital signs: Vital Signs Temp 99.2 F 08/01/20 16:00 Pulse 62 08/01/20 16:00 Resp 22 08/01/20 16:00 BP 118/63 08/01/20 16:00 Pulse Ox 96 08/01/20 16:00 Intake & Output 07/31/20 08/01/20 08/01/20 18:59 06:59 18:59 Intake Total 2339.364 9884.822 782.000 Output Total 830 515 820 Balance 258.615 518.822 -38.000 Weight 90.5 kg 94.3 kg Intake: IV 299 360 280 Lactated Ringers 1,000 ml 160 260 180 @ 20 mls/hr IV .Q24H [facility] Rx#:[id number] levETIRAcetam IV 500 mg 100 100 100 In Sodium Chloride 0.9% 100 ml @ 400 mls/hr IVPB Q12HR [facility] Rx#:[id number] pressure bag 39 0 Intake, IV Titration 73.615 219.822 100.000 Amount propofoL 500 mg In Empty 73.615 219.822 100.000 Bag 1 bag @ Titrate IV . Q0M [facility] Rx#:[id number] Tube Feeding 626 364 252 Other 90 90 150 Output: Urine 830 515 820 Other: Voiding Method Indwelling Catheter Indwelling Catheter Indwelling Catheter ABP, PAP, CO, CI - Last Documented Arterial Blood Pressure 113/55 Pulmonary Artery Pressure 40/20 Cardiac Output 4.3 Cardiac Index 2.2 - Exam Patient is on propofol 25 g. Her eyes are open, but gaze is upwards and sometimes to the right. Pupils are round and reacting. Patient is on mechanical ventilation. Patient is flaccid on the left side. Per nursing report, she has some withdrawal on the right arm. Patient has bilateral Babinski. No obvious seizure-like activity. - Labs CBC & Chem 7: 08/01/20 03:50 08/01/20 03:50 Labs: Abnormal Lab Results - Last 24 Hours (Table) 07/31/20 08/01/20 08/01/20 Range/Units 20:07 00:02 03:50 WBC 13.6 H (3.8-10.6) k/uL RBC 2.33 L (3.80-5.40) m/uL Hgb 7.1 L (11.4-16.0) gm/dL Hct 21.4 L (34.0-46.0) % Neutrophils # 10.3 H (1.3-7.7) k/uL ABG pH (7.35-7.45) ABG pO2 (83-108) mmHg ABG HCO3 (21-25) mmol/L ABG Total CO2 (19-24) mmol/L Sodium (137-145) mmol/L BUN (7-17) mg/dL Glucose (74-99) mg/dL POC Glucose (mg/dL) 115 H 161 H (75-99) mg/dL Calcium (8.4-10.2) mg/dL AST (14-36) U/L ALT (4-34) U/L Total Protein (6.3-8.2) g/dL Albumin (3.5-5.0) g/dL 08/01/20 08/01/20 08/01/20 Range/Units 03:50 03:52 05:10 WBC (3.8-10.6) k/uL RBC (3.80-5.40) m/uL Hgb (11.4-16.0) gm/dL Hct (34.0-46.0) % Neutrophils # (1.3-7.7) k/uL ABG pH 7.47 H (7.35-7.45) ABG pO2 77 L (83-108) mmHg ABG HCO3 29 H (21-25) mmol/L ABG Total CO2 30 H (19-24) mmol/L Sodium 136 L (137-145) mmol/L BUN 29 H (7-17) mg/dL Glucose 131 H (74-99) mg/dL POC Glucose (mg/dL) 145 H (75-99) mg/dL Calcium 7.8 L (8.4-10.2) mg/dL AST 107 H (14-36) U/L ALT 105 H (4-34) U/L Total Protein 4.8 L (6.3-8.2) g/dL Albumin 2.7 L (3.5-5.0) g/dL 08/01/20 08/01/20 08/01/20 Range/Units 07:49 11:38 16:02 WBC (3.8-10.6) k/uL RBC (3.80-5.40) m/uL Hgb (11.4-16.0) gm/dL Hct (34.0-46.0) % Neutrophils # (1.3-7.7) k/uL ABG pH (7.35-7.45) ABG pO2 (83-108) mmHg ABG HCO3 (21-25) mmol/L ABG Total CO2 (19-24) mmol/L Sodium (137-145) mmol/L BUN (7-17) mg/dL Glucose (74-99) mg/dL POC Glucose (mg/dL) 153 H 156 H 149 H (75-99) mg/dL Calcium (8.4-10.2) mg/dL AST (14-36) U/L ALT (4-34) U/L Total Protein (6.3-8.2) g/dL Albumin (3.5-5.0) g/dL Assessment and Plan Assessment: * Acute bilateral cerebellar ischemic stroke (Right>left), as well as subacute evolving ischemic infarction involving the right MCA/TAZ watershed territory with left hemiplegia. Computed tomography scan also showed subacute left caudate head ischemic infarction. The strokes were noted post CABG 07/27/2020. Patient probably had showers of emboli from cardiac source. Stroke likely cardioembolic. * New onset atrial fibrillation, but now back in sinus rhythm (with amiodarone). * Left hemiplegia, not able to be explained by "right cerebellar stroke". Patient probably had showers of emboli from cardiac source. * Bilateral ICA stenosis > 75% per CTA, however no significant stenosis per carotid Doppler. * Altered mental status probably due to ischemic encephalopathy, with superimposed toxic metabolic causes. * Peripheral arterial disease with history of lower extremity stenting * History of lung cancer status post right lower lobectomy * Anemia * Hypertension * Hyperlipidemia * X tobacco use. Plan: * Patient currently on dual antiplatelet medications. Not a candidate for anticoagulation because of recent cardiac surgery, and recent multiple CVA. * Suggest MRI of the brain to evaluate for extent of the strokes, when possible. * Continue high-dose statins. * Patient on heparin subcu for DVT prophylaxis. * Prognosis very guarded based upon computed tomography scan results. * Reviewed CT scans with the radiologist, who agreed with evidence of multiple bilateral cerebellar and hemispheric subacute/evolving ischemic strokes. * Spoke to patient's son aSurav Arguello on the phone. I answered all the questions.
[2020-08-01] MEDS ORDERED: ACETAMINOPHEN IV (For NPO) 1,000 MG in EMPTY BAG 1 BAG IVPB ONE (17:30)
--- NOTE | 2020-08-01 19:40 | P.PN ---
Progress Note - Text Progress Note Date: 08/01/20 Chief Complaint: Chest pain History of presenting complaint: This is a pleasant 75-year-old patient of Dr. Derrick Neal. Chronic stable medical conditions include COPD, hyperlipidemia, hypertension, ostial arthritis, lung cancer 6 years ago, peripheral artery disease, coronary artery stent, peripheral stents, anxiety depression. Patient presented after she was having central chest pressure at home then went to both the shoulder blades for the arms. Patient became nauseated. No dizziness or lightheadedness. She shortness of breath. No perspiration. Symptoms most lost about 40 minutes she was taken to [facility]. She was similar episode about 2 weeks ago. Transferred down here. Has some lower extremity edema Admitted with unstable angina. underwent cardiac catheterization. Found to have severe triple-vessel coronary artery disease. July 27-underwent coronary bypass 3, ligation of left atrial appendage. Patient received a unit of blood.postsurgery was found to have weakness on the left side.stroke was noted on the computed tomography scan. Including lacunar infarct.patient has been in and out of atrial fibrillation. computed tomography scan of the brain reviewed by Dr. Carrion: Acute bilateral cerebellar ischemic stroke as well as subacute evolving ischemic infarction involving the right MCA/TAZ watershed territory left caudate head ischemic infarction. Tuttle to be embolic. [id number]: FiO2 50 and a PEEP of 8. Telemetry-sinus rhythm. 2 feeding at 28 mL an hour. On IV propofol. Patient sedated Review of systems: Patient intubated Active Medications Hydrocodone Bitart/Acetaminophen (Hydrocodone/Apap 5-325mg 1 Each Tab) 1 each PO Q4HR PRN PRN Reason: Moderate Pain Last Admin: 08/01/20 00:08 Dose: 1 each Documented by: Albuterol/Ipratropium (Ipratropium-Albuterol 3 Ml Neb) 3 ml INHALATION RT-Q2H PRN PRN Reason: Shortness Of Breath Or Wheezing Albuterol/Ipratropium (Ipratropium-Albuterol 3 Ml Neb) 3 ml INHALATION RT-QID [facility] Last Admin: 08/01/20 14:50 Dose: 3 ml Documented by: Aspirin (Aspirin 325 Mg Tab) 325 mg PO DAILY [facility] Last Admin: 08/01/20 09:35 Dose: 325 mg Documented by: Atorvastatin Calcium (Atorvastatin 80 Mg Tab) 80 mg PO HS [facility] Last Admin: 07/31/20 20:17 Dose: 80 mg Documented by: Benzocaine/Menthol (Benzocaine/Menthol Lozeng 1 Each Lozenge) 1 each MUCOUS MEM Q2H PRN PRN Reason: Sore Throat Bisacodyl (Bisacodyl 10 Mg Supp) 10 mg RECTAL DAILY PRN PRN Reason: Constipation Last Admin: 08/01/20 14:39 Dose: 10 mg Documented by: Chlorhexidine Gluconate (Chlorhexidine Gluconate 15 Ml Cup) 15 ml MUCOUS MEM BID [facility] Last Admin: 08/01/20 09:34 Dose: 15 ml Documented by: Clopidogrel Bisulfate (Clopidogrel 75 Mg Tab) 75 mg PO DAILY [facility] Last Admin: 08/01/20 09:35 Dose: 75 mg Documented by: Ezetimibe (Ezetimibe 10 Mg Tab) 10 mg PO [facility] Last Admin: 07/31/20 20:17 Dose: 10 mg Documented by: Heparin Sodium (Porcine) (Heparin Sodium,Porcine 5,000 Unit/Ml 1 Ml Vial) 5,000 unit SQ Q8HR [facility] Last Admin: 08/01/20 16:46 Dose: 5,000 unit Documented by: Norepinephrine Bitartrate 4 mg (/ Sodium Chloride) 254 mls @ 15.754 mls/hr IV .Q16H8M [facility]; Protocol Last Admin: 08/01/20 09:29 Dose: Not Given Documented by: Amiodarone HCl 150 mg/ (Dextrose/Water) 103 mls @ 618 mls/hr IV .Q10M PRN; Protocol PRN Reason: A.FIB/FLUTTER Last Admin: 07/31/20 21:39 Dose: 618 mls/hr Documented by: Amiodarone HCl 360 mg/ (Dextrose/Water) 207.2 mls @ 34.533 mls/hr IV .Q6H PRN; Protocol PRN Reason: A.FIB/FLUTTER Last Admin: 07/31/20 21:39 Dose: 1 mg/min, 34.533 mls/hr Documented by: Amiodarone HCl 450 mg/ (Dextrose/Water) 250 mls @ 16.667 mls/hr IV .Q15H PRN; Protocol PRN Reason: A.FIB/FLUTTER Last Admin: 08/01/20 03:05 Dose: 0.5 mg/min, 16.667 mls/hr Documented by: Lactated Ringer's (Lactated Ringers) 1,000 mls @ 20 mls/hr IV .Q24H [facility] Last Admin: 08/01/20 03:05 Dose: 20 mls/hr Documented by: Calcium Gluconate 2 gm/ Sodium (Chloride) 120 mls @ 100 mls/hr IVPB ONCE PRN PRN Reason: Ionized Calcium less than 4.4 Stop: 08/06/20 14:16 Propofol 500 mg/ IV Solution 50 mls @ 0 mls/hr IV .Q0M [facility]; Protocol Last Admin: 08/01/20 19:07 Dose: 25 mcg/kg/min, 14.145 mls/hr Documented by: Levetiracetam 500 mg/ Sodium (Chloride) 105 mls @ 400 mls/hr IVPB Q12HR [facility] Last Admin: 08/01/20 09:34 Dose: 400 mls/hr Documented by: Insulin Aspart (Insulin Aspart (Novolog) 100 Unit/Ml Vial) 0 unit SQ Q4HR [facility]; Protocol Last Admin: 08/01/20 16:05 Dose: 1 unit Documented by: Magnesium Hydroxide (Magnesium Hydroxide 2,400 Mg/10 Ml Cup) 2,400 mg PO BID PRN PRN Reason: Constipation Metoclopramide HCl (Metoclopramide 5 Mg/Ml 2 Ml Vial) 10 mg IVP Q4H PRN PRN Reason: Nausea And Vomiting Metoprolol Tartrate (Metoprolol Tartrate 25 Mg Tab) 25 mg PO BID [facility] Last Admin: 08/01/20 09:35 Dose: 25 mg Documented by: Miscellaneous Information (Potassium Replacement Protocol 1 Each Misc) 1 each MISCELLANE DAILY PRN; Protocol PRN Reason: Per Protocol Miscellaneous Information (Magnesium Replacement Protocol 1 Each Misc) 1 each MISCELLANE DAILY PRN; Protocol PRN Reason: Per Protocol Miscellaneous Information (Phosphorus Replacement Protoco 1 Each Misc) 1 each MISCELLANE DAILY PRN; Protocol PRN Reason: Per Protocol Ondansetron HCl (Ondansetron 4 Mg/2 Ml Vial) 4 mg IVP Q6HR PRN PRN Reason: Nausea And Vomiting Pantoprazole Sodium (Pantoprazole 40 Mg/10 Ml Vial) 40 mg IVP DAILY [facility] Last Admin: 08/01/20 09:35 Dose: 40 mg Documented by: Senna/Docusate Sodium (Sennosides-Docusate Sodium 1 Each Tab) 2 each PO HS [facility] Last Admin: 07/31/20 20:16 Dose: 2 each Documented by: Sertraline HCl (Sertraline 100 Mg Tab) 100 mg PO DAILY [facility] Last Admin: 08/01/20 09:35 Dose: 100 mg Documented by: Sodium Chloride (Sodium Chloride 0.9% Flush 10 Ml Syringe) 10 ml IV BID [facility] Last Admin: 08/01/20 11:48 Dose: Not Given Documented by: Past medical history to include: CHF, COPD, hyperlipidemia, hypertension, coronary artery disease with stent, osteoporosis, lung cancer 6 years ago, peripheral arterial disease, anxiety depression Social history: Lives with her son. Smoked a pack a day since the teenage years. Stop in 2011. Some alcohol in the past Physical examination: VITAL SIGNS: 99.2, 62, 22, 118/63, 96% on the ventilator 50% GENERAL: Laying in bed, intubated, EYES: Pupils equal. Conjunctiva normal. HEENT: External appearance of nose and ears normal, oral cavity endotracheal tube. NECK: JVD unable to assess; masses not palpable. HEART: First and second heart sounds are normal; no edema. LUNGS: Respiratory rate increased; decreased breath sounds. ABDOMEN: Soft, nontender, liver spleen not palpable, no masses palpable. Da Silva catheter NEURO: Weakness in both upper limbs. PSYCH: Unable to assess MUSCULOSKELETAL: Evidence of OA Investigations: August 01: WBC 13.6 hemoglobin 7.1 platelets 293 potassium 3.5 creatinine 0.55 AST 107 ALT 105 July 31: WBC 13.5 hemoglobin 7.6 potassium 3.5 creatinine 0.56 AST 147 ALT 106 July 30: WBC 12.8 hemoglobin 8 potassium 3.6 creatinine 0.64 July 29: White count 11.5 hemoglobin 6.9 platelets 210 July 28: White count 10.7 hemoglobin 7.4 platelets 195 potassium 3.9 creatinine 0.58 July 27: Incontinent 12.6 hemoglobin 7.7 platelets 199 potassium 4.5 creatinine 0.56 albumin 3.3 July 22: Potassium 4.1 creatinine 0.97 proBNP 1270 Cardiac sgqzoxaabxdwrdu-tmvbix-eeiqad disease 2-D echocardiogram-moderate concentric LVH, EF 50-55% hypokinetic galicia Troponin I 0.018, 0.012 Coronavirus [PCR]-not detected EKG tracing personally reviewed by me-normal sinus rhythm, PVC Assessment and plan: -Coronary artery bypass [id number] July 27. On Plavix, Lopressor, Zetia -Acute postprocedure blood loss anemia, as expected from surgery, received 1 unit of blood -Hypotensive shock from volume loss patient was on levo -improved -Unstable angina, POA -Triple-vessel coronary artery disease -. Plavix, Lopressor, Zetia -Acute on chronic congestive heart diastolic dysfunction EF 50-55% received IV Lasix. Stabilized. Follow clinically -COPD in a previous smoker, on DuoNeb -Hyperlipidemia, continue Lipitor -Essential hypertension, follow closely -Primary osteoarthritis, take Tylenol when necessary -History of lung cancer 6 years ago -Peripheral arterial disease with stenting, on aspirin and Plavix -Anxiety depression otherwise specified-on Zoloft -Chronic insomnia continue with melatonin -Paroxysmal atrial fibrillation.in and out of rapid atrial fibrillation - on IV amiodarone -Acute bilateral cerebellar ischemic stroke as well as subacute evolving ischemic infarction involving the right MCA/TAZ watershed territory left caudate head ischemic infarction. Tuttle to be embolic./post surgical Prognosis guarded. Thank you Dr. Moffett
[2020-08-01] MEDS: ATORVASTATIN 80 MG TAB PO SCH (23:32)
[2020-08-01] MEDS: SENNOSIDES-DOCUSATE SODIUM 1 EACH TAB PO SCH (23:33)
[2020-08-01] MEDS: EZETIMIBE 10 MG TAB PO SCH (23:33)
[2020-08-02 04:20] LABS: Glucose,Whole Blood 130 mg/dL (75-99)
[2020-08-02 05:09] LABS: ABG Base Excess 5.9 mmol/L; ABG HCO3 29 mmol/L (21-25); ABG Oxygen Saturation 98.9 % (94-97); ABG PCO2 38 mmHg (35-45); ABG PH 7.49 (7.35-7.45); ABG PO2 100 mmHg (83-108); ABG TCO2 30 mmol/L (19-24); Allen Test Performed? Yes
[2020-08-02] MEDS: INSULIN ASPART (NovoLOG) 100 UNIT/ML VIAL SQ SCH ×6 (05:27→22:43)
[2020-08-02] MEDS: NOREPINEPHRINE 4 MG in SODIUM CHLORIDE 0.9% 250 ML IV SCH (05:32)
[2020-08-02] MEDS: LACTATED RINGERS 1,000 ML IV SCH (05:34)
[2020-08-02 06:19] LABS: Basophils # (A) 0.1 k/uL (0-0.2); Basophils % (A) 0 %; Eosinophils # (A) 0.6 k/uL (0-0.7); Eosinophils % (A) 3 %; HCT 23.2 % (34.0-46.0); HGB 7.6 gm/dL (11.4-16.0); Lymphocytes # (A) 1.6 k/uL (1.0-4.8); Lymphocytes % (A) 8 %; MCH 29.9 pg (25.0-35.0); MCHC 32.9 g/dL (31.0-37.0); MCV 91.1 fL (80.0-100.0); Mean Platelet Volume 7.9; Monocytes # (A) 1.4 k/uL (0-1.0); Monocytes % (A) 7 %; Neutrophils # (A) 16.7 k/uL (1.3-7.7); Neutrophils % (A) 81 %; Platelet Count 387 k/uL (150-450); RBC 2.54 m/uL (3.80-5.40); RDW 14.2 % (11.5-15.5); WBC 20.6 k/uL (3.8-10.6)
[2020-08-02 06:28] LABS: ALT 83 U/L (4-34); AST 67 U/L (14-36); African American GFR (CKD) >90 (>60 ml/min/1.73 sqM); Albumin 2.8 g/dL (3.5-5.0); Alkaline Phosphatase 128 U/L (38-126); Anion Gap 5 mmol/L; Blood Urea Nitrogen 24 mg/dL (7-17); Calcium 8.2 mg/dL (8.4-10.2); Carbon Dioxide 31 mmol/L (22-30); Chloride 101 mmol/L (98-107); Glucose 136 mg/dL (74-99); Non-African American GFR(CKD) >90 (>60 ml/min/1.73 sqM); Potassium 3.9 mmol/L (3.5-5.1); Sodium 137 mmol/L (137-145); Total Bilirubin 0.7 mg/dL (0.2-1.3); Total Protein 5.2 g/dL (6.3-8.2)
[2020-08-02] MEDS ORDERED: POTASSIUM BICARBONATE/CIT AC 20 MEQ TABLET.EFF PO ONE (07:43)
[2020-08-02] MEDS: IPRATROPIUM-ALBUTEROL 3 ML NEB INHALATION SCH ×4 (08:01→19:58)
[2020-08-02] MEDS ORDERED: HEPARIN SODIUM,PORCINE 5,000 UNIT/ML 1 ML VIAL IV PRN (08:29)
[2020-08-02] MEDS ORDERED: HEPARIN SODIUM,PORCINE 5,000 UNIT/ML 1 ML VIAL IV ONE (08:29)
[2020-08-02 08:43] LABS: Glucose,Whole Blood 147 mg/dL (75-99)
[2020-08-02] MEDS ORDERED: FUROSEMIDE 10 MG/ML 2 ML VIAL IV ONE (08:45)
[2020-08-02] MEDS: AMIODARONE 200 MG TAB PO SCH ×2 (08:49→21:31)
[2020-08-02] MEDS: CHLORHEXIDINE GLUCONATE 15 ML CUP MUCOUS MEM SCH ×2 (08:49→21:31)
[2020-08-02] MEDS: SERTRALINE 100 MG TAB PO SCH (08:49)
[2020-08-02] MEDS: PANTOPRAZOLE 40 MG/10 ML VIAL IVP SCH (08:49)
[2020-08-02] MEDS: METOPROLOL TARTRATE 25 MG TAB PO SCH (08:49)
[2020-08-02] MEDS: ASPIRIN 81 MG PO SCH (08:49)
[2020-08-02] MEDS: HEPARIN SOD,PORK IN 0.45% NACL 25,000 UNIT in 0.45% NACL 1 250ML.BAG IV SCH (08:51)
[2020-08-02] MEDS: CLOPIDOGREL 75 MG TAB PO SCH (08:53)
[2020-08-02] MEDS: levETIRAcetam IV 500 MG in SODIUM CHLORIDE 0.9% 100 ML IVPB SCH ×2 (08:54→21:31)
--- NOTE | 2020-08-02 09:09 | P.PN ---
Subjective Progress Note Date: 08/02/20 Principal diagnosis: Triple-vessel coronary artery disease, unstable angina. History of coronary artery disease with previous myocardial infarction and stent placement, peripheral arterial disease with lower extremity stenting, lung cancer status post right lower lobectomy in 2012, hypertension, hyperlipidemia, COPD with previous tobacco dependence, anxiety/depression, family history of premature coronary artery disease, significant plaque formation more than 75% stenosis at the origins of both internal and external carotid arteries bilaterally on CTA POD #6 coronary artery bypass grafting 3 vessels, left internal mammary artery to the left anterior descending artery, reverse saphenous vein graft to the obtuse marginal artery, reverse saphenous vein graft to the posterior descending artery, endoscopic harvesting of the right greater saphenous vein, ligation of the left atrial appendage using a 35 mm AtriClip, epi-aortic ultrasound and intraoperative transesophageal echocardiogram Postoperative acute blood loss anemia, expected given hemodilution and cardiopulmonary bypass pump Postoperative right acute/subacute cerebellar infarct on brain CT, unexpected, although possible complication of any open heart surgery, especially given patient's known history of significant arterial disease Prolonged mechanical ventilation, unexpected, secondary to acute stroke Paroxysmal atrial fibrillation, known common occurrence after open heart surgery The patient was seen and examined at the bedside with Dr. Alan. She remains sedated with propofol on mechanical ventilation. She is currently in A. fib again. Remains on oral Lopressor. Unable to follow any commands or respond at this time secondary to propofol sedation, pupils are equal and reactive 4 mm down to 2 mm. Spontaneous breathing trial was attempted yesterday, patient became very tachypneic, placed back on sedation and full vent support. Tube feeding continues at goal. Son's Osmany and Christian updated daily. Objective - Vital Signs Vital signs: Vital Signs Temp 97.4 F L 08/02/20 04:00 Pulse 118 H 08/02/20 08:10 Resp 30 H 08/02/20 07:00 BP 121/70 08/02/20 07:00 Pulse Ox 98 08/02/20 07:00 Intake & Output 08/01/20 08/02/20 08/02/20 18:59 06:59 18:59 Intake Total 907.940 401.241 20 Output Total 1020 690 Balance -112.060 -288.759 20 Weight 91.8 kg Intake: IV 320 340 20 Lactated Ringers 1,000 ml 220 240 20 @ 20 mls/hr IV .Q24H [facility] Rx#:[id number] levETIRAcetam IV 500 mg 100 100 In Sodium Chloride 0.9% 100 ml @ 400 mls/hr IVPB Q12HR [facility] Rx#:[id number] Intake, IV Titration 129.940 33.241 Amount propofoL 500 mg In Empty 129.940 33.241 Bag 1 bag @ Titrate IV . Q0M [facility] Rx#:[id number] Tube Feeding 308 28 Other 150 Output: Urine 1020 690 Other: Voiding Method Indwelling Catheter Indwelling Catheter ABP, PAP, CO, CI - Last Documented Arterial Blood Pressure 113/55 Pulmonary Artery Pressure 40/20 Cardiac Output 4.3 Cardiac Index 2.2 - Constitutional General appearance: Present: no acute distress, obese - Respiratory Details: Lungs sounds diminished bilaterally. Respirations even, nonlabored on mechanical ventilation. Current ventilator settings FiO2 50%, tidal volume 350, respiratory rate 16, PEEP 8. 8.0 ET tube present, 22 at the lip. - Cardiovascular Details: S1, S2 present. [place], irregular rate and rhythm, rapid A. fib on telemetry. Sternum stable. Palpable peripheral pulses bilaterally. Generalized edema present. No calf pain or tenderness noted. Heart hugger, antiembolism stockin gs, SCDs present. Left PICC line present - Gastrointestinal Gastrointestinal Comment(s): Abdomen soft, nontender, nondistended. Active bowel sounds present 4 quadrants. Dobbhoff present with tube feedings infusing at goal. Small bowel movement yesterday per nursing - Genitourinary Genitourinary Comment(s): Da Silva present draining clear, yellow urine. Output 50-85 mL/h overnight, 1710 mL in the last 24 hours. - Integumentary Integumentary Comment(s): Skin is warm and dry with evidence of good perfusion. Anterior chest incision well approximated and covered with dry intact dressing. Right lower extremity EVH site well approximated without redness or drainage. - Neurologic Neurologic Comment(s): Unable to assess this time due to heavy sedation with propofol - Psychiatric Psychiatric Comment(s): Unable to assess at this time due to heavy sedation with propofol - Allied health notes Allied health notes reviewed: nursing - Labs CBC & Chem 7: 08/02/20 06:00 08/02/20 06:00 Labs: Abnormal Lab Results - Last 24 Hours (Table) 08/01/20 08/01/20 08/02/20 Range/Units 11:38 16:02 04:18 WBC (3.8-10.6) k/uL RBC (3.80-5.40) m/uL Hgb (11.4-16.0) gm/dL Hct (34.0-46.0) % Neutrophils # (1.3-7.7) k/uL Monocytes # (0-1.0) k/uL ABG pH (7.35-7.45) ABG HCO3 (21-25) mmol/L ABG Total CO2 (19-24) mmol/L ABG O2 Saturation (94-97) % Carbon Dioxide (22-30) mmol/L BUN (7-17) mg/dL Creatinine (0.52-1.04) mg/dL Glucose (74-99) mg/dL POC Glucose (mg/dL) 156 H 149 H 130 H (75-99) mg/dL Calcium (8.4-10.2) mg/dL AST (14-36) U/L ALT (4-34) U/L Alkaline Phosphatase (38-126) U/L Total Protein (6.3-8.2) g/dL Albumin (3.5-5.0) g/dL 08/02/20 08/02/20 08/02/20 Range/Units 05:06 06:00 06:00 WBC 20.6 H (3.8-10.6) k/uL RBC 2.54 L (3.80-5.40) m/uL Hgb 7.6 L (11.4-16.0) gm/dL Hct 23.2 L (34.0-46.0) % Neutrophils # 16.7 H (1.3-7.7) k/uL Monocytes # 1.4 H (0-1.0) k/uL ABG pH 7.49 H (7.35-7.45) ABG HCO3 29 H (21-25) mmol/L ABG Total CO2 30 H (19-24) mmol/L ABG O2 Saturation 98.9 H (94-97) % Carbon Dioxide 31 H (22-30) mmol/L BUN 24 H (7-17) mg/dL Creatinine 0.50 L (0.52-1.04) mg/dL Glucose 136 H (74-99) mg/dL POC Glucose (mg/dL) (75-99) mg/dL Calcium 8.2 L (8.4-10.2) mg/dL AST 67 H (14-36) U/L ALT 83 H (4-34) U/L Alkaline Phosphatase 128 H (38-126) U/L Total Protein 5.2 L (6.3-8.2) g/dL Albumin 2.8 L (3.5-5.0) g/dL 08/02/20 Range/Units 08:42 WBC (3.8-10.6) k/uL RBC (3.80-5.40) m/uL Hgb (11.4-16.0) gm/dL Hct (34.0-46.0) % Neutrophils # (1.3-7.7) k/uL Monocytes # (0-1.0) k/uL ABG pH (7.35-7.45) ABG HCO3 (21-25) mmol/L ABG Total CO2 (19-24) mmol/L ABG O2 Saturation (94-97) % Carbon Dioxide (22-30) mmol/L BUN (7-17) mg/dL Creatinine (0.52-1.04) mg/dL Glucose (74-99) mg/dL POC Glucose (mg/dL) 147 H (75-99) mg/dL Calcium (8.4-10.2) mg/dL AST (14-36) U/L ALT (4-34) U/L Alkaline Phosphatase (38-126) U/L Total Protein (6.3-8.2) g/dL Albumin (3.5-5.0) g/dL - Imaging and Cardiology Chest x-ray: image reviewed Assessment and Plan Assessment: 1. Triple-vessel coronary artery disease, unstable angina, status post three- vessel CABG 2. History of coronary artery disease with previous myocardial infarction and stent placement 3. Peripheral arterial disease with lower extremity stenting 4. History of lung cancer status post right lower lobectomy 5. Hypertension, currently hypotensive requiring IV pressors 6. Hyperlipidemia, treated, cholesterol 152, LDL 85 7. COPD with previous tobacco dependence, preoperative FEV1 82% of predicted 8. Anxiety/depression 9. Family history of premature coronary artery disease 10. Postoperative acute blood loss anemia, expected, status post 1 unit packed red blood cell transfusion 11. Postoperative acute/subacute right cerebellar infarct, unexpected, with evidence of previous right parietal stroke 12. Bilateral internal carotid artery disease greater than 75% present on CTA 13. Prolonged mechanical ventilation 14. Paroxysmal atrial fibrillation, status post ligation of the left atrial appendage Plan: 1. Continue low-dose ASA, statin, Plavix, beta tran. Will increase beta tran therapy as tolerated. Cardiology would like Plavix stopped, will discuss with neurology 2. Continue amiodarone for A. fib prophylaxis. Will initiate IV heparin for anticoagulation, eventually transition to oral anticoagulation once we are sure no further surgeries are planned 3. Ventilator management, bronchodilators per pulmonology 4. Neurology consulted, appreciate recommendations. Neuro checks every hour 5. Will monitor daily labs and x-rays. Electrolyte replacement per protocol. Will give IV Lasix today 6. GI/DVT prophylaxis 7. Pain control with current medication regimen 8. Will continue Da Silva catheter 9. Strict accurate intake and output. Daily weights 10. Limit sedation to be able to assess neuro status 11. Will update patient's family daily. We did broach the subject of tracheostomy and PEG tube placement with her sons a couple of days ago, if not able to be weaned/extubated may need to consider trach and PEG early next week 12. Social work consulted as patient will need facility placement at discharge 13. More recommendations to follow based on patient's clinical course Time with Patient: Greater than 30
--- NOTE | 2020-08-02 09:36 | PN ---
PROGRESS NOTE Mrs. Arguello is a 75-year-old female who presented with non ST-segment elevation myocardial infarction and congestive heart failure. She underwent coronary artery bypass grafting. At the time of trying to wake her up she was noted to have some weakness on the left side and her CT scan was consistent with a new cerebrovascular accident. She remains intubated. She had an episode of atrial fibrillation yesterday. Her rate is controlled. Hemodynamically, otherwise, she is stable. She is tolerating feeding tube. Her urine output is good. She continues to be on Lipitor 80 mg daily, aspirin once a day, Plavix 75 mg daily, Zetia 10 mg daily, metoprolol tartrate 25 mg twice a day. PHYSICAL EXAMINATION: Blood pressure 121/70 with the heart rate in the 100s. LUNGS: Clear anteriorly. HEART: Irregular, irregular. S1, S2. No S3. No rub. ABDOMEN: Soft. Positive bowel sounds. EXTREMITIES: No edema. LAB DATA: Lab data revealed BUN and creatinine 24 and 0.5. Potassium 3.9. Her AST is 67, ALT is 83. Her white blood cells are up to 20.6, which is worsened than yesterday. Her chest x-ray is pending this morning. IMPRESSION: 1. Status post coronary artery bypass grafting with a presentation of non ST-segment elevation myocardial infarction and congestive heart failure. 2. Postoperative cerebrovascular accident. 3. Respiratory failure. 4. Carotid disease. 5. Paroxysmal fibrillation. 6. Hypertension. 7. Hyperlipidemia. RECOMMENDATION: I will recommend to start IV heparin as well as oral amiodarone. Continue his medical regimen. Will await the plan regarding attempt to wean here. In the meantime, I will not initiate oral anticoagulation in case tracheostomy or PEG tube is recommended. She will need to have close followup for her white blood cells. The elevation could reflect an infectious process. MMODL / IJN: [id number] /
[2020-08-02 09:51] LABS: Appearance,Urine Clear (Clear); Bilirubin,Urine Negative (Negative); Blood,Urine Moderate (Negative); Color,Urine Colorless; Glucose,Urine (UA) Negative (Negative); Ketones,Urine Negative (Negative); Leukocyte Esterase,Urine Negative (Negative); Mucus,Urine Rare /hpf; Nitrite,Urine Negative (Negative); Protein,Urine Negative (Negative); RBC,Urine 46 /hpf (0-5); Specific Gravity,Urine 1.007 (1.001-1.035); Urobilinogen,Urine <2.0 mg/dL (<2.0); WBC,Urine 1 /hpf (0-5)
--- NOTE | 2020-08-02 10:02 | XR ---
EXAMINATION TYPE: XR chest 1V portable DATE OF EXAM: 08/02/2020 COMPARISON: 08/01/2020 HISTORY: Post cardiac surgery TECHNIQUE: Single frontal view of the chest is obtained. FINDINGS: Left-sided PICC line stable. ET and feeding tube stable. Stimulator catheter device overly ing the vertebral column. Bilateral infiltrate and pleural effusion. Diffuse interstitial pattern. No pneumothorax. Heart is enlarged. IMPRESSION: 1. Correlate for CHF versus diffuse pneumonia
--- NOTE | 2020-08-02 10:10 | P.PN ---
Subjective Progress Note Date: 08/02/20 Principal diagnosis: Coronary artery disease status post coronary artery bypass grafting Patient was reevaluated today on 07/28/2020, remains intubated and mechanically ventilated. Patient is now on assist control mode of mechanical ventilation with a rate of 16, volume is 450 FiO2 is 50% and PEEP of 5. Unfortunately the patient was noted to have poor movement of her left upper and left lower extremity last night, CT of the head last night showed acute/subacute area of infarction in the right cerebellum along with probable area of chronic infarction in the right parietal region I evaluated the patient this morning, seems to be extremely restless and agitated, seems to be neglecting the left side, and both eyes are deviated to the right and upwards. Patient seems to be moving her right side quite well, however the left side seems to be relatively weak although she was squeezing my hand with her left hand. And minimal movement noted in the left lower extremity. Patient is on Precedex, and seems to be agitated in spite of Precedex. Her ventilatory settings are reasonable, ABG is reasonable, patient is basically extubate overall, however her mental status is a bit concerning specially with her extreme agitation, keeps pulling and shaking the railing of the bed on the right side. Patient was given Ativan, and I have recommended increasing Precedex. She is not truly quite ready to be extubated today. Again my major concern is her mental status. And she is yet to be seen by neurology on consultation. Blood pressure is quite high, 160 systolic, norepinephrine was discontinued during my evaluation. She was on a very minimal dose of 0.1 mcg/kg/m of norepinephrine patient was also on milrinone. CBC is relatively normal hemoglobin is 7.4. ABG this morning showed a pO2 of 92 pCO2 of 38 pH of 7.45. This was on 50% FiO2. Electrolytes and renal profile are normal. Chest x-ray showed mostly postoperative changes of CABG 07/29/2020, I'm seeing the patient for a follow-up in the intensive care unit. This morning the patient is heavily sedated with propofol and she is calm and comfortable. Unfortunately with that, neurologic examination is not possible. I would suggest gradually cutting down the propofol and assess her neuro status and if needed utilize Precedex as an alternative sedative drip. Meanwhile, the patient remains essentially with enema to severe with a low dose of norepinephrine infusion running at 0.06 mcg/kg per minute. She has an adequate urine output. Cardiac rhythm is sinus. She has a left pleural and mediastinal chest tubes and output from those are in order of minimal, less than 100 over the past 24 hours. The chest x-ray showing cardiomegaly. There is some kyphoscoliosis of the chest. Chest tubes are in good location. ET tube is in good location. Atelectatic changes and some mild four-vessel congestion. Meanwhile, the patient's vent settings include an assist-control mode at the rate of 16 with a tidal volume of 450 and FiO2 of 40% with a PEEP of 5. The blood gases from this morning showed a pH of 7.49 with a pCO2 of 36 and pO2 of 82. On today's blood work, the patient's hemoglobin is down to 6.9 from 7.4. Platelets is at 210. 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 Intracranial cerebral arteries were essentially patent with nothing significantly stenotic. During our limited neurologic evaluation, the patient did not do mistreat any withdrawal with to painful stimulation. No Babinski. No clonus. Nevertheless, I was told by the nursing staff that she was able to move her right side yesterday and her left side once off sedation. Pupils are equal and reactive to light and order of 3 mm. No preferential gaze on today's evaluation. A sedation holiday will be given. She is on enteral nutrition. No other drips. No seizure activity. Neurologist on the case. She is on aspirin, Plavix, and she also on metoprolol 12.5 mg by mouth twice a day. She is also on high-dose statins. Progress note dated 05/29/2021. Currently, this is a 75-year-old female who was admitted to the hospital on July 21. She went to the operating room, on July 27 for a three-vessel bypass grafting with Dr. Alan. The patient has never been extubated. Unfortunately, she developed a right cerebellar CVA. She remains on the mechanical ventilator. She is currently on the volume assist control mode, rate is 16, tidal volume 400, FiO2 60%, and PEEP of 5. The blood gases show a PaO2 of 99, a PaCO2 of 40, and a pH of 7.44. She also remains on lactated Ringer's at 20 mL an hour, propofol was turned off for the spontaneous breathing trial, and she's been weaned off of norepinephrine. She is receiving vital AF, at a rate of 30 mL an hour, with a goal of 57 mL an hour. We placed the patient on pressure support of 5 CPAP of 5, and stayed in the room to observe her response to the spontaneous breathing trial. Unfortunately, the patient's respiratory rate went up above 40, and a tidal volumes dropped down to 200 range. Her minute volume was quite high, and the patient was placed back on the volume assist control mode. After the failed spontaneous breathing trial, the patient 's tidal volume was dropped down to 350, her FiO2 was decreased to 50%, and the peak level was increased from 5 to 8 cm water. White count is 12.8, hemoglobin 8, hematocrit 23.5, and platelet count 210,000. Blood gases have been reviewed. Sodium 139, potassium 3.6, chlorides 107, CO2 27, anion gap 5, BUN 33, and creatinine 0.64. Chest x-ray shows a right lower lobe infiltrate and my opinion. Progress note dated 07/31/2020 75-year-old female, that was admitted to the hospital on July 21. She went to the operating room on July 27 for a three-vessel bypass grafting with Dr. Alan. The patient has never been extubated and unfortunately, she developed a right cerebellar CVA. She currently remains on the ventilator, on the volume assist control modality. She is on a rate of 16, tidal volume 350, FiO2 50%, and a PEEP of 8. Arterial blood gases show a PaO2 of 76, PaCO2 44, and a pH of 7.4. The patient is getting lactated Ringer's at KVO, amiodarone at 0.5 mg/m, and propofol at 30 mcg/kg/m. In addition, the patient's on vital AF 1.2 at 57, with a goal of 57 mL an hour. Today, we attempted a daily interruption of sedation and a spontaneous breathing trial. As noted yesterday, she failed her trial. Today, we placed her on PSV 8, and CPAP of 5. Currently, she is doing a bit better today. A Dobbhoff tube was placed yesterday. Unfortunately, she appears to be weaker on the right side. The left side she does not move at all. In the end, she may end up with the tracheostomy tube and a ET tube. Yesterday, after the spontaneous breathing trial, the patient unfortunately developed atrial fibrillation with RVR, and that is why the patient is on amiodarone. The patient is seen today 08/01/2020 in follow-up in the intensive care unit. She remains intubated on the mechanical ventilator. Current settings assist- control of with a rate of 16, tidal volume 350, FiO2 50% and a PEEP of 8. Morning blood gases reveal a P O2 of 77, pCO2 of 40, pH 7.47. She remains sedated on propofol at 30 mcg/kg/m. Lactated Ringer's at KVO. She developed atrial fibrillation with rapid ventricular response. She is currently on amiodarone at 0.5 mg/m. She is being nourished with vital HP at 20 ML's per hour which is goal. She was given daily interruption of sedation. She develops A. fib RVR during a spontaneous breathing trials yesterday. We'll trial again today. His chest x-ray continues to show stable diffuse pleuroparenchymal changes. Endotracheal tube and gastric tubes are secured in place. Left-sided chest tube has been removed. PICC line in place. She is status post 1 unit of packed red blood cells this admission. Current hemoglobin 7.1. White count 13.6. Sodium 136. Potassium 3.5. Creatinine 0.55. AST 107. ALT 105. Albumin 2.7. She is continued on DuoNeb inhalations. Heparin for DVT prophylaxis. The patient is seen today 08/02/2020 in follow-up in the intensive care unit. She remains intubated and sedated. Currently on mechanical ventilator assist control mode at a rate of 16. Tidal volume 350. FiO2 40%. PEEP of 8. Morning blood gases reveal a P O2 of 100, pCO2 38, pH 7.49. This is on 50% FiO2. She is currently sedated on propofol at 35 mcg/kg/m. She remains on heparin drip. 0.9 normal saline at 20 ML's per hour. She is being nourished with vital HP 20 ML's per hour which is goal. She was given daily interruption of sedation yesterday she became extremely tachypneic with a respiratory rate in the 40s, not following any commands. Placed back on assist control. Trial again today. She has been having issues with atrial fibrillation. Transitioned to oral amiodarone. Chest x-ray reveals left-sided PICC line in place. Endotracheal and gastric tubes are stable. Vertebral column stimulator in place. There are bilateral infiltrates/pleural effusions. Diffusion interstitial pattern. No pneumothorax. She has received 1 unit of packed red blood cells this admission. Current hemoglobin 7.6. Platelets 387. White count 20.6. Sodium 137. Potassium 3.9. Creatinine 0.50. AST 67. ALT 83. Albumin 2.8. Objective - Vital Signs Vital signs: Vital Signs Temp 97.4 F L 08/02/20 04:00 Pulse 118 H 08/02/20 08:10 Resp 30 H 08/02/20 07:00 BP 121/70 08/02/20 07:00 Pulse Ox 98 08/02/20 07:00 Intake & Output 08/01/20 08/02/20 08/02/20 18:59 06:59 18:59 Intake Total 907.940 451.241 20 Output Total 1020 690 Balance -112.060 -238.759 20 Weight 91.8 kg Intake: IV 320 340 20 Lactated Ringers 1,000 ml 220 240 20 @ 20 mls/hr IV .Q24H [facility] Rx#:[id number] levETIRAcetam IV 500 mg 100 100 In Sodium Chloride 0.9% 100 ml @ 400 mls/hr IVPB Q12HR [facility] Rx#:[id number] Intake, IV Titration 129.940 83.241 Amount propofoL 500 mg In Empty 129.940 83.241 Bag 1 bag @ Titrate IV . Q0M [facility] Rx#:[id number] Tube Feeding 308 28 Other 150 Output: Urine 1020 690 Other: Voiding Method Indwelling Catheter Indwelling Catheter ABP, PAP, CO, CI - Last Documented Arterial Blood Pressure 113/55 Pulmonary Artery Pressure 40/20 Cardiac Output 4.3 Cardiac Index 2.2 - Exam 75 year-old intubated, sedated 75-year-old female patient. Poorly responsive, is sedated, and on mechanical ventilation. For the spontaneous breathing trial, the patient was off sedation, is still unresponsive. HEENT examination is grossly unremarkable. Mucous membranes are moist. There is a orally placed endotracheal tube, and nasogastric tube. Neck supple. Full range of motion. No adenopathy thyromegaly or neck vein distention. Cardiovascular examination reveals an irregular rhythm and rate. S1-S2 normal. No S3 or S4. No discernible murmur noted. Heart sounds are distant. Heart rate is 124 bpm. Lungs reveal bilateral rhonchi. No wheezes or crackles. Breath sounds equal bilaterally. Abdomen soft bowel sounds are heard. No masses or tenderness. Extremities are intact. No cyanosis clubbing or edema. Skin is without rash or lesion. Neurologic examination reveals a poorly responsive female, who does not move her left side. - Labs CBC & Chem 7: 08/02/20 06:00 08/02/20 06:00 Labs: Abnormal Lab Results - Last 24 Hours (Table) 08/01/20 08/01/20 08/02/20 Range/Units 11:38 16:02 04:18 WBC (3.8-10.6) k/uL RBC (3.80-5.40) m/uL Hgb (11.4-16.0) gm/dL Hct (34.0-46.0) % Neutrophils # (1.3-7.7) k/uL Monocytes # (0-1.0) k/uL ABG pH (7.35-7.45) ABG HCO3 (21-25) mmol/L ABG Total CO2 (19-24) mmol/L ABG O2 Saturation (94-97) % Carbon Dioxide (22-30) mmol/L BUN (7-17) mg/dL Creatinine (0.52-1.04) mg/dL Glucose (74-99) mg/dL POC Glucose (mg/dL) 156 H 149 H 130 H (75-99) mg/dL Calcium (8.4-10.2) mg/dL AST (14-36) U/L ALT (4-34) U/L Alkaline Phosphatase (38-126) U/L Total Protein (6.3-8.2) g/dL Albumin (3.5-5.0) g/dL Urine Blood (Negative) Urine RBC (0-5) /hpf Urine Mucus (None) /hpf 08/02/20 08/02/20 08/02/20 Range/Units 05:06 06:00 06:00 WBC 20.6 H (3.8-10.6) k/uL RBC 2.54 L (3.80-5.40) m/uL Hgb 7.6 L (11.4-16.0) gm/dL Hct 23.2 L (34.0-46.0) % Neutrophils # 16.7 H (1.3-7.7) k/uL Monocytes # 1.4 H (0-1.0) k/uL ABG pH 7.49 H (7.35-7.45) ABG HCO3 29 H (21-25) mmol/L ABG Total CO2 30 H (19-24) mmol/L ABG O2 Saturation 98.9 H (94-97) % Carbon Dioxide 31 H (22-30) mmol/L BUN 24 H (7-17) mg/dL Creatinine 0.50 L (0.52-1.04) mg/dL Glucose 136 H (74-99) mg/dL POC Glucose (mg/dL) (75-99) mg/dL Calcium 8.2 L (8.4-10.2) mg/dL AST 67 H (14-36) U/L ALT 83 H (4-34) U/L Alkaline Phosphatase 128 H (38-126) U/L Total Protein 5.2 L (6.3-8.2) g/dL Albumin 2.8 L (3.5-5.0) g/dL Urine Blood (Negative) Urine RBC (0-5) /hpf Urine Mucus (None) /hpf 08/02/20 08/02/20 Range/Units 08:42 09:30 WBC (3.8-10.6) k/uL RBC (3.80-5.40) m/uL Hgb (11.4-16.0) gm/dL Hct (34.0-46.0) % Neutrophils # (1.3-7.7) k/uL Monocytes # (0-1.0) k/uL ABG pH (7.35-7.45) ABG HCO3 (21-25) mmol/L ABG Total CO2 (19-24) mmol/L ABG O2 Saturation (94-97) % Carbon Dioxide (22-30) mmol/L BUN (7-17) mg/dL Creatinine (0.52-1.04) mg/dL Glucose (74-99) mg/dL POC Glucose (mg/dL) 147 H (75-99) mg/dL Calcium (8.4-10.2) mg/dL AST (14-36) U/L ALT (4-34) U/L Alkaline Phosphatase (38-126) U/L Total Protein (6.3-8.2) g/dL Albumin (3.5-5.0) g/dL Urine Blood Moderate H (Negative) Urine RBC 46 H (0-5) /hpf Urine Mucus Rare H (None) /hpf Assessment and Plan Assessment: Postoperative day #6, status post three-vessel bypass grafting. Routine postoperative ventilator management. The patient remains on the ventilator because of her recent ischemic CVA. Postoperative acute/subacute right cerebellar infarct. Left-sided hemiparesis. Leukocytosis of unclear etiology Remote history of non-small cell lung cancer, with previous lobectomy. Prior history of tobacco use. Mild COPD based on PFTs. Family history of premature coronary artery disease. History of hypertension. Peripheral vascular occlusive disease. Degenerative joint disease. Hyperlipidemia. Chronic insomnia. History of postoperative anemia. Plan: The patient was seen and evaluated by Dr. Luong Chest x-ray, ABGs and labs reviewed We will give her another daily interruption of sedation Trial pressure support of 8 CPAP of 5 with weaning parameters May require tracheostomy tube in PEG tube placement We'll obtain blood, urine, sputum cultures due to the leukocytosis Obtained pro-calcitonin level We will continue to follow and make further recommendations based on her clinical status Critical care time 36 minutes I, the cosigning physician, performed a history & physical examination of the patient. Lungs sounds with bilateral scattered rhonchi. Maintaining good O2 saturations in the 90s on 40% FiO2 and PEEP of 8 via the mechanical ventilator. I discussed the assessment and plan of care with my nurse practitioner, Sierra Feliciano. I attest to the above note as dictated by her.
[2020-08-02] MEDS: HYDROcodone/APAP 5-325MG 1 EACH TAB PO PRN (11:14)
[2020-08-02 12:05] LABS: Glucose,Whole Blood 155 mg/dL (75-99)
[2020-08-02] MEDS ORDERED: METOPROLOL TARTRATE 25 MG TAB PO SCH ×2 (16:00→21:00)
[2020-08-02 17:13] LABS: Glucose,Whole Blood 137 mg/dL (75-99)
[2020-08-02] MEDS: SENNOSIDES-DOCUSATE SODIUM 1 EACH TAB PO SCH (21:31)
[2020-08-02] MEDS: ATORVASTATIN 80 MG TAB PO SCH (21:31)
--- NOTE | 2020-08-02 22:35 | P.PN ---
Progress Note - Text Progress Note Date: 08/02/20 Chief Complaint: Chest pain History of presenting complaint: This is a pleasant 75-year-old patient of Dr. Derrick Neal. Chronic stable medical conditions include COPD, hyperlipidemia, hypertension, ostial arthritis, lung cancer 6 years ago, peripheral artery disease, coronary artery stent, peripheral stents, anxiety depression. Patient presented after she was having central chest pressure at home then went to both the shoulder blades for the arms. Patient became nauseated. No dizziness or lightheadedness. She shortness of breath. No perspiration. Symptoms most lost about 40 minutes she was taken to [facility]. She was similar episode about 2 weeks ago. Transferred down here. Has some lower extremity edema Admitted with unstable angina. underwent cardiac catheterization. Found to have severe triple-vessel coronary artery disease. July 27-underwent coronary bypass 3, ligation of left atrial appendage. Patient received a unit of blood.postsurgery was found to have weakness on the left side.stroke was noted on the computed tomography scan. Including lacunar infarct.patient has been in and out of atrial fibrillation. computed tomography scan of the brain reviewed by Dr. Carrion: Acute bilateral cerebellar ischemic stroke as well as subacute evolving ischemic infarction involving the right MCA/TAZ watershed territory left caudate head ischemic infarction. [place] to be embolic. [id number] FiO2 40 PEEP of 8. IV propofol. Telemetry-sinus rhythm. 2 feeding at 20 mL an hour. Through NG tube Review of systems: Patient intubated Active Medications Hydrocodone Bitart/Acetaminophen (Hydrocodone/Apap 5-325mg 1 Each Tab) 1 each PO Q4HR PRN PRN Reason: Moderate Pain Last Admin: 08/02/20 11:14 Dose: 1 each Documented by: Albuterol/Ipratropium (Ipratropium-Albuterol 3 Ml Neb) 3 ml INHALATION RT-Q2H PRN PRN Reason: Shortness Of Breath Or Wheezing Albuterol/Ipratropium (Ipratropium-Albuterol 3 Ml Neb) 3 ml INHALATION RT-QID [facility] Last Admin: 08/02/20 19:58 Dose: 3 ml Documented by: Amiodarone HCl (Amiodarone 200 Mg Tab) 400 mg PO BID [facility] Last Admin: 08/02/20 21:31 Dose: 400 mg Documented by: Aspirin (Aspirin 81 Mg) 81 mg PO DAILY [facility] Last Admin: 08/02/20 08:49 Dose: 81 mg Documented by: Atorvastatin Calcium (Atorvastatin 80 Mg Tab) 80 mg PO HS [facility] Last Admin: 08/02/20 21:31 Dose: 80 mg Documented by: Benzocaine/Menthol (Benzocaine/Menthol Lozeng 1 Each Lozenge) 1 each MUCOUS MEM Q2H PRN PRN Reason: Sore Throat Bisacodyl (Bisacodyl 10 Mg Supp) 10 mg RECTAL DAILY PRN PRN Reason: Constipation Last Admin: 08/01/20 14:39 Dose: 10 mg Documented by: Chlorhexidine Gluconate (Chlorhexidine Gluconate 15 Ml Cup) 15 ml MUCOUS MEM BID [facility] Last Admin: 08/02/20 21:31 Dose: 15 ml Documented by: Clopidogrel Bisulfate (Clopidogrel 75 Mg Tab) 75 mg PO DAILY [facility] Last Admin: 08/02/20 08:53 Dose: Not Given Documented by: Ezetimibe (Ezetimibe 10 Mg Tab) 10 mg PO HS [facility] Last Admin: 08/01/20 23:33 Dose: 10 mg Documented by: Heparin Sodium (Porcine) (Heparin Sodium,Porcine 5,000 Unit/Ml 1 Ml Vial) 0 unit IV PER PROTOCOL PRN; Protocol PRN Reason: Low PTT Lactated Ringer's (Lactated Ringers) 1,000 mls @ 20 mls/hr IV .Q24H [facility] Last Admin: 08/02/20 05:34 Dose: Not Given Documented by: Calcium Gluconate 2 gm/ Sodium (Chloride) 120 mls @ 100 mls/hr IVPB ONCE PRN PRN Reason: Ionized Calcium less than 4.4 Stop: 08/06/20 14:16 Propofol 500 mg/ IV Solution 50 mls @ 0 mls/hr IV .Q0M [facility]; Protocol Last Admin: 08/02/20 19:24 Dose: 20 mcg/kg/min, 11.016 mls/hr Documented by: Levetiracetam 500 mg/ Sodium (Chloride) 105 mls @ 400 mls/hr IVPB Q12HR [facility] Last Admin: 08/02/20 21:31 Dose: 400 mls/hr Documented by: Heparin Sodium/Sodium Chloride (25,000 unit/ Sodium Chloride) 250 mls @ 9.997 mls/hr IV .Q24H [facility]; Protocol Last Titration: 08/02/20 19:30 Dose: 0 units/kg/hr, 0 mls/hr Documented by: Insulin Aspart (Insulin Aspart (Novolog) 100 Unit/Ml Vial) 0 unit SQ Q4HR [facility]; Protocol Last Admin: 08/02/20 17:20 Dose: 1 unit Documented by: Magnesium Hydroxide (Magnesium Hydroxide 2,400 Mg/10 Ml Cup) 2,400 mg PO BID PRN PRN Reason: Constipation Metoclopramide HCl (Metoclopramide 5 Mg/Ml 2 Ml Vial) 10 mg IVP Q4H PRN PRN Reason: Nausea And Vomiting Metoprolol Tartrate (Metoprolol Tartrate 25 Mg Tab) 25 mg PO BID [facility] Last Admin: 08/02/20 21:31 Dose: 25 mg Documented by: Miscellaneous Information (Potassium Replacement Protocol 1 Each Misc) 1 each MISCELLANE DAILY PRN; Protocol PRN Reason: Per Protocol Miscellaneous Information (Magnesium Replacement Protocol 1 Each Misc) 1 each MISCELLANE DAILY PRN; Protocol PRN Reason: Per Protocol Miscellaneous Information (Phosphorus Replacement Protoco 1 Each Misc) 1 each MISCELLANE DAILY PRN; Protocol PRN Reason: Per Protocol Ondansetron HCl (Ondansetron 4 Mg/2 Ml Vial) 4 mg IVP Q6HR PRN PRN Reason: Nausea And Vomiting Pantoprazole Sodium (Pantoprazole 40 Mg/10 Ml Vial) 40 mg IVP DAILY [facility] Last Admin: 08/02/20 08:49 Dose: 40 mg Documented by: Senna/Docusate Sodium (Sennosides-Docusate Sodium 1 Each Tab) 2 each PO HS [facility] Last Admin: 08/02/20 21:31 Dose: 2 each Documented by: Sertraline HCl (Sertraline 100 Mg Tab) 100 mg PO DAILY [facility] Last Admin: 08/02/20 08:49 Dose: 100 mg Documented by: Sodium Chloride (Sodium Chloride 0.9% Flush 10 Ml Syringe) 10 ml IV BID [facility] Last Admin: 08/02/20 21:32 Dose: 10 ml Documented by: Past medical history to include: CHF, COPD, hyperlipidemia, hypertension, coronary artery disease with stent, osteoporosis, lung cancer 6 years ago, peripheral arterial disease, anxiety depression Social history: Lives with her son. Smoked a pack a day since the teenage years. Stop in 2011. Some alcohol in the past Physical examination: VITAL SIGNS: 97.3, 81, 33, 166.70, 94% on the ventilator GENERAL: Laying in bed, intubated, EYES: Pupils equal. Conjunctiva normal. HEENT: External appearance of nose and ears normal, oral cavity endotracheal tube. NECK: JVD unable to assess; masses not palpable. HEART: First and second heart sounds are normal; no edema. LUNGS: Respiratory rate increased; decreased breath sounds. ABDOMEN: Soft, nontender, liver spleen not palpable, no masses palpable. Da Silva catheter NEURO: Pupils equal. PSYCH: Unable to assess MUSCULOSKELETAL: Evidence of OA Investigations: August 02: WBC 20.6 hemoglobin 7.6 potassium 3.9 creatinine 0.50. Chest x-ray bilateral infiltrates July 29: White count 11.5 hemoglobin 6.9 platelets 210 July 28: White count 10.7 hemoglobin 7.4 platelets 195 potassium 3.9 creatinine 0.58 July 27: Incontinent 12.6 hemoglobin 7.7 platelets 199 potassium 4.5 creatinine 0.56 albumin 3.3 July 22: Potassium 4.1 creatinine 0.97 proBNP 1270 Cardiac dppmlkdngkvfdnh-hqonnl-mhuldm disease 2-D echocardiogram-moderate concentric LVH, EF 50-55% hypokinetic galicia Troponin I 0.018, 0.012 Coronavirus [PCR]-not detected EKG tracing personally reviewed by me-normal sinus rhythm, PVC Assessment and plan: -Coronary artery bypass [id number] July 27. On Plavix, Lopressor, Zetia -Acute postprocedure blood loss anemia, as expected from surgery, received 1 unit of blood -Hypotensive shock from volume loss patient was on levo -improved -Unstable angina, POA -Triple-vessel coronary artery disease -. Plavix, Lopressor, Zetia -Acute on chronic congestive heart diastolic dysfunction EF 50-55% received IV Lasix. Stabilized. Follow clinically -COPD in a previous smoker, on DuoNeb -Hyperlipidemia, continue Lipitor -Essential hypertension, follow closely -Primary osteoarthritis, take Tylenol when necessary -History of lung cancer 6 years ago -Peripheral arterial disease with stenting, on aspirin and Plavix -Anxiety depression otherwise specified-on Zoloft -Chronic insomnia continue with melatonin -Paroxysmal atrial fibrillation.in and out of rapid atrial fibrillation - on IV amiodarone -Acute bilateral cerebellar ischemic stroke as well as subacute evolving ischemic infarction involving the right MCA/TAZ watershed territory left caudate head ischemic infarction. [place] to be embolic./post surgical Prognosis guarded. Thank you Dr. Moffett
[2020-08-02] MEDS: EZETIMIBE 10 MG TAB PO SCH (22:42)
[2020-08-02 22:44] LABS: Glucose,Whole Blood 130 mg/dL (75-99)
[2020-08-03 00:28] LABS: Glucose,Whole Blood 123 mg/dL (75-99)
[2020-08-03] MEDS: INSULIN ASPART (NovoLOG) 100 UNIT/ML VIAL SQ SCH ×6 (00:30→20:10)
[2020-08-03 05:01] LABS: Glucose,Whole Blood 133 mg/dL (75-99)
[2020-08-03] MEDS: LACTATED RINGERS 1,000 ML IV SCH (05:28)
[2020-08-03 06:09] LABS: ABG Base Excess 7.2 mmol/L; ABG HCO3 31 mmol/L (21-25); ABG Oxygen Saturation 98.1 % (94-97); ABG PCO2 40 mmHg (35-45); ABG PH 7.49 (7.35-7.45); ABG PO2 90 mmHg (83-108); ABG TCO2 32 mmol/L (19-24); Allen Test Performed? Yes
[2020-08-03 06:40] LABS: HCT 23.2 % (34.0-46.0); HGB 7.7 gm/dL (11.4-16.0); MCH 30.4 pg (25.0-35.0); MCHC 32.9 g/dL (31.0-37.0); MCV 92.4 fL (80.0-100.0); Mean Platelet Volume 7.7; Platelet Count 476 k/uL (150-450); RBC 2.52 m/uL (3.80-5.40); RDW 14.3 % (11.5-15.5); WBC 22.5 k/uL (3.8-10.6)
[2020-08-03 06:58] LABS: ALT 80 U/L (4-34); AST 70 U/L (14-36); African American GFR (CKD) >90 (>60 ml/min/1.73 sqM); Albumin 2.7 g/dL (3.5-5.0); Alkaline Phosphatase 136 U/L (38-126); Anion Gap 6 mmol/L; Blood Urea Nitrogen 27 mg/dL (7-17); Calcium 8.2 mg/dL (8.4-10.2); Carbon Dioxide 31 mmol/L (22-30); Chloride 102 mmol/L (98-107); Glucose 137 mg/dL (74-99); Non-African American GFR(CKD) >90 (>60 ml/min/1.73 sqM); Potassium 3.9 mmol/L (3.5-5.1); Sodium 139 mmol/L (137-145); Total Bilirubin 0.7 mg/dL (0.2-1.3); Total Protein 5.1 g/dL (6.3-8.2)
[2020-08-03] MEDS: IPRATROPIUM-ALBUTEROL 3 ML NEB INHALATION SCH ×4 (07:15→19:05)
[2020-08-03 07:29] LABS: Glucose,Whole Blood 129 mg/dL (75-99)
--- NOTE | 2020-08-03 09:27 | XR ---
EXAMINATION TYPE: XR chest 1V portable DATE OF EXAM: 08/03/2020 COMPARISON: Chest x-ray 08/02/2020 HISTORY: Respiratory failure TECHNIQUE: Single frontal view of the chest is obtained. FINDINGS: Endotracheal tube and Dobbhoff tube are present, Doppler tube tip is in the left upper kalyn drant. Left atrial appendage clip, thoracic cord stimulator lead are again noted. No evident pneumoth orax. Left-sided PICC line shows the distal tip over the superior vena cava. Bibasilar density persis ts, cardiac mediastinal silhouette is stable. Perihilar increased attenuation noted within the lungs, left hemidiaphragm remains obscured greater than right. IMPRESSION: Findings are similar, correlate for edema, pneumonia, possible effusions.
--- NOTE | 2020-08-03 09:36 | PN ---
PROGRESS NOTE Mrs. Arguello is a 75-year-old female who presented with non ST-segment elevation infarction and evidence of CHF, had severe triple-vessel coronary artery disease, underwent coronary artery bypass grafting. During weaning her initially she was found to have left-sided weakness. She is in atrial fibrillation and was started on anticoagulation. She remains intubated, attempts to wean her yesterday were unsuccessful. She continues to be at this time on amiodarone 400 mg twice a day, Lipitor 80 mg daily, Plavix 75 mg daily, aspirin once a day, metoprolol tartrate 25 mg twice a day. PHYSICAL EXAMINATION: Blood pressure 107/60 with the heart rate in the low 100s. LUNGS: Clear anteriorly. HEART: Irregular, irregular. S1, S2. No S3 with systolic murmur. ABDOMEN: Soft. Positive bowel sounds. EXTREMITIES: No edema. LAB DATA: Lab data revealed an AST of 70, ALT of 80. Hemoglobin 7.7. Her white blood cell is 22.5, which has worsened compared to yesterday. Her potassium is 3.9. Her chest x-ray revealed bilateral atelectasis and possible infiltrate. IMPRESSION: 1. Respiratory failure status post coronary artery bypass grafting. 2. Cerebrovascular accident .. 3. Atrial fibrillation, anticoagulated. 4. Hyperlipidemia. 5. Leukocytosis. 6. Remote history of non-small cell carcinoma. 7. History of carotid disease. RECOMMENDATION: From the cardiac standpoint, we will continue the IV heparin. I will increase the dose of her beta tran to 25 mg t.i.d. We will follow her lab data closely. The patient may require a tracheostomy and PEG tube placement. Depending on her progress, further recommendation will be made. MMODL / IJN: [id number] /
--- NOTE | 2020-08-03 09:42 | P.PN ---
Subjective Progress Note Date: 08/03/20 Principal diagnosis: Triple-vessel coronary artery disease, unstable angina. History of coronary artery disease with previous myocardial infarction and stent placement, peripheral arterial disease with lower extremity stenting, lung cancer status post right lower lobectomy in 2012, hypertension, hyperlipidemia, COPD with previous tobacco dependence, anxiety/depression, family history of premature coronary artery disease, significant plaque formation more than 75% stenosis at the origins of both internal and external carotid arteries bilaterally on CTA POD #7 coronary artery bypass grafting 3 vessels, left internal mammary artery to the left anterior descending artery, reverse saphenous vein graft to the obtuse marginal artery, reverse saphenous vein graft to the posterior descending artery, endoscopic harvesting of the right greater saphenous vein, ligation of the left atrial appendage using a 35 mm AtriClip, epi-aortic ultrasound and intraoperative transesophageal echocardiogram Postoperative acute blood loss anemia, expected given hemodilution and cardiopulmonary bypass pump Postoperative right acute/subacute cerebellar infarct on brain CT, unexpected, although possible complication of any open heart surgery, especially given patient's known history of significant arterial disease Prolonged mechanical ventilation, unexpected, secondary to acute stroke Paroxysmal atrial fibrillation, known common occurrence after open heart surgery The patient was seen and examined at the bedside. She remains sedated with propofol on mechanical ventilation. She is currently in A. fib again but at a controlled rate. Remains on oral Lopressor and amiodarone. Unable to follow any commands or respond at this time secondary to propofol sedation, pupils are equal and reactive 4 mm down to 2 mm, withdraws to painful stimuli on right upper extremity and bilateral lower extremities. Spontaneous breathing trial was attempted yesterday, patient becomes tachycardic, hypertensive, and taccypneic with SBT. Tube feeding continues at goal. Son's Osmany and Christian updated daily. Objective - Vital Signs Vital signs: Vital Signs Temp 99.4 F 08/03/20 04:00 Pulse 108 H 08/03/20 07:32 Resp 22 08/03/20 06:00 BP 107/64 08/03/20 06:00 Pulse Ox 95 08/03/20 06:00 Intake & Output 08/02/20 08/03/20 08/03/20 18:59 06:59 18:59 Intake Total 754.342 722.468 129.103 Output Total 1325 560 85 Balance -570.658 162.468 44.103 Weight 91.4 kg Intake: IV 340 260 40 Lactated Ringers 1,000 ml 240 260 40 @ 20 mls/hr IV .Q24H [facility] Rx#:[id number] levETIRAcetam IV 500 mg 100 In Sodium Chloride 0.9% 100 ml @ 400 mls/hr IVPB Q12HR [facility] Rx#:[id number] Intake, IV Titration 44.342 206.468 89.103 Amount Heparin Sod,Pork in 0.45% 106.468 57.34 NaCl 25,000 unit In 0.45 % NaCl 1 250ml.bag @ 10. 89 UNITS/KG/HR 9.997 mls/ hr IV .Q24H [facility] Rx#: [id number] propofoL 500 mg In Empty 44.342 100 31.763 Bag 1 bag @ Titrate IV . Q0M [facility] Rx#:[id number] Tube Feeding 280 196 Other 90 60 Output: Urine 1325 560 85 Other: Voiding Method Indwelling Catheter Indwelling Catheter # Bowel Movements 1 ABP, PAP, CO, CI - Last Documented Arterial Blood Pressure 113/55 Pulmonary Artery Pressure 40/20 Cardiac Output 4.3 Cardiac Index 2.2 - Constitutional General appearance: Present: no acute distress, obese - Respiratory Details: Lungs sounds diminished bilaterally. Respirations even, nonlabored on mechanical ventilation. Current ventilator settings FiO2 40%, tidal volume 350, respiratory rate 16, PEEP 8. 8.0 ET tube present, 22 a - Cardiovascular Details: S1, S2 present. Irregular rate and rhythm, controlled A. fib on telemetry. Sternum stable. Palpable peripheral pulses bilaterally. Generalized edema present. No calf pain or tenderness noted. Heart hugger, antiembolism stockings, SCDs present. Left PICC line present - Gastrointestinal Gastrointestinal Comment(s): Abdomen soft, nontender, nondistended. Active bowel sounds present 4 quadrants. Dobbhoff present with tube feedings infusing at goal. Small bowel movement yesterday per nursing - Genitourinary Genitourinary Comment(s): Da Silva present draining clear, yellow urine. Output 40-50 mL/h overnight, 950 mL after IV Lasix given yesterday - Integumentary Integumentary Comment(s): Skin is warm and dry with evidence of good perfusion. Anterior chest incision well approximated and covered with dry intact dressing. Right lower extremity EVH site well approximated without redness or drainage. - Neurologic Neurologic Comment(s): Does withdraw to painful stimuli to right upper and bilateral lower extremities, eyes open, does not track or follow commands - Allied health notes Allied health notes reviewed: nursing - Labs CBC & Chem 7: 08/03/20 06:20 08/03/20 06:20 Labs: Abnormal Lab Results - Last 24 Hours (Table) 08/02/20 08/02/20 08/02/20 Range/Units 06:00 09:30 12:04 WBC (3.8-10.6) k/uL RBC (3.80-5.40) m/uL Hgb (11.4-16.0) gm/dL Hct (34.0-46.0) % Plt Count (150-450) k/uL APTT (22.0-30.0) sec ABG pH (7.35-7.45) ABG HCO3 (21-25) mmol/L ABG Total CO2 (19-24) mmol/L ABG O2 Saturation (94-97) % Carbon Dioxide (22-30) mmol/L BUN (7-17) mg/dL Glucose (74-99) mg/dL POC Glucose (mg/dL) 155 H (75-99) mg/dL Calcium (8.4-10.2) mg/dL AST (14-36) U/L ALT (4-34) U/L Alkaline Phosphatase (38-126) U/L Total Protein (6.3-8.2) g/dL Albumin (3.5-5.0) g/dL Procalcitonin 0.12 H (0.02-0.09) ng/mL Urine Blood Moderate H (Negative) Urine RBC 46 H (0-5) /hpf Urine Mucus Rare H (None) /hpf 08/02/20 08/02/20 08/02/20 Range/Units 16:25 17:11 22:43 WBC (3.8-10.6) k/uL RBC (3.80-5.40) m/uL Hgb (11.4-16.0) gm/dL Hct (34.0-46.0) % Plt Count (150-450) k/uL APTT 93.3 H (22.0-30.0) sec ABG pH (7.35-7.45) ABG HCO3 (21-25) mmol/L ABG Total CO2 (19-24) mmol/L ABG O2 Saturation (94-97) % Carbon Dioxide (22-30) mmol/L BUN (7-17) mg/dL Glucose (74-99) mg/dL POC Glucose (mg/dL) 137 H 130 H (75-99) mg/dL Calcium (8.4-10.2) mg/dL AST (14-36) U/L ALT (4-34) U/L Alkaline Phosphatase (38-126) U/L Total Protein (6.3-8.2) g/dL Albumin (3.5-5.0) g/dL Procalcitonin (0.02-0.09) ng/mL Urine Blood (Negative) Urine RBC (0-5) /hpf Urine Mucus (None) /hpf 08/03/20 08/03/20 08/03/20 Range/Units 00:27 04:59 06:03 WBC (3.8-10.6) k/uL RBC (3.80-5.40) m/uL Hgb (11.4-16.0) gm/dL Hct (34.0-46.0) % Plt Count (150-450) k/uL APTT (22.0-30.0) sec ABG pH 7.49 H (7.35-7.45) ABG HCO3 31 H (21-25) mmol/L ABG Total CO2 32 H (19-24) mmol/L ABG O2 Saturation 98.1 H (94-97) % Carbon Dioxide (22-30) mmol/L BUN (7-17) mg/dL Glucose (74-99) mg/dL POC Glucose (mg/dL) 123 H 133 H (75-99) mg/dL Calcium (8.4-10.2) mg/dL AST (14-36) U/L ALT (4-34) U/L Alkaline Phosphatase (38-126) U/L Total Protein (6.3-8.2) g/dL Albumin (3.5-5.0) g/dL Procalcitonin (0.02-0.09) ng/mL Urine Blood (Negative) Urine RBC (0-5) /hpf Urine Mucus (None) /hpf 08/03/20 08/03/20 08/03/20 Range/Units 06:20 06:20 06:20 WBC 22.5 H (3.8-10.6) k/uL RBC 2.52 L (3.80-5.40) m/uL Hgb 7.7 L (11.4-16.0) gm/dL Hct 23.2 L (34.0-46.0) % Plt Count 476 H (150-450) k/uL APTT 33.2 H (22.0-30.0) sec ABG pH (7.35-7.45) ABG HCO3 (21-25) mmol/L ABG Total CO2 (19-24) mmol/L ABG O2 Saturation (94-97) % Carbon Dioxide 31 H (22-30) mmol/L BUN 27 H (7-17) mg/dL Glucose 137 H (74-99) mg/dL POC Glucose (mg/dL) (75-99) mg/dL Calcium 8.2 L (8.4-10.2) mg/dL AST 70 H (14-36) U/L ALT 80 H (4-34) U/L Alkaline Phosphatase 136 H (38-126) U/L Total Protein 5.1 L (6.3-8.2) g/dL Albumin 2.7 L (3.5-5.0) g/dL Procalcitonin (0.02-0.09) ng/mL Urine Blood (Negative) Urine RBC (0-5) /hpf Urine Mucus (None) /hpf 08/03/20 Range/Units 07:28 WBC (3.8-10.6) k/uL RBC (3.80-5.40) m/uL Hgb (11.4-16.0) gm/dL Hct (34.0-46.0) % Plt Count (150-450) k/uL APTT (22.0-30.0) sec ABG pH (7.35-7.45) ABG HCO3 (21-25) mmol/L ABG Total CO2 (19-24) mmol/L ABG O2 Saturation (94-97) % Carbon Dioxide (22-30) mmol/L BUN (7-17) mg/dL Glucose (74-99) mg/dL POC Glucose (mg/dL) 129 H (75-99) mg/dL Calcium (8.4-10.2) mg/dL AST (14-36) U/L ALT (4-34) U/L Alkaline Phosphatase (38-126) U/L Total Protein (6.3-8.2) g/dL Albumin (3.5-5.0) g/dL Procalcitonin (0.02-0.09) ng/mL Urine Blood (Negative) Urine RBC (0-5) /hpf Urine Mucus (None) /hpf Microbiology - Last 24 Hours (Table) 08/02/20 12:00 Gram Stain - Preliminary Sputum Sputum Culture - Preliminary - Imaging and Cardiology Chest x-ray: report reviewed, image reviewed Assessment and Plan Assessment: 1. Triple-vessel coronary artery disease, unstable angina, status post three- vessel CABG 2. History of coronary artery disease with previous myocardial infarction and stent placement 3. Peripheral arterial disease with lower extremity stenting 4. History of lung cancer status post right lower lobectomy 5. Hypertension, currently hypotensive requiring IV pressors 6. Hyperlipidemia, treated, cholesterol 152, LDL 85 7. COPD with previous tobacco dependence, preoperative FEV1 82% of predicted 8. Anxiety/depression 9. Family history of premature coronary artery disease 10. Postoperative acute blood loss anemia, expected, status post 1 unit packed red blood cell transfusion 11. Postoperative acute/subacute right cerebellar infarct, unexpected, with evidence of previous right parietal stroke 12. Bilateral internal carotid artery disease greater than 75% present on CTA 13. Prolonged mechanical ventilation 14. Paroxysmal atrial fibrillation, status post ligation of the left atrial appendage 15. Leukocytosis, blood/urine, sputum cultures pending Plan: 1. Continue low-dose ASA, statin, Plavix, beta tran. Will increase beta tran therapy as tolerated. Cardiology would like Plavix stopped, will discuss with neurology 2. Continue amiodarone for A. fib prophylaxis. Continue IV heparin for anticoagulation, eventually transition to oral anticoagulation once we are sure no further surgeries are planned 3. Ventilator management, bronchodilators per pulmonology. 4. Neurology consulted, appreciate recommendations. Neuro checks every hour 5. Will monitor daily labs and x-rays. Electrolyte replacement per protocol. Will monitor cultures 6. GI/DVT prophylaxis 7. Pain control with current medication regimen 8. Will continue Da Silva catheter for strict accurate intake and output. Daily weights 9. Limit sedation to be able to assess neuro status 10. If unsuccessful with weaning/extubation over the weekend may need tracheostomy and PEG tube placement beginning of next week 11. Will update patient's family daily. 12. Social work consulted as patient will need facility placement at discharge 13. More recommendations to follow based on patient's clinical course Time with Patient: Greater than 30
[2020-08-03] MEDS: PANTOPRAZOLE 40 MG/10 ML VIAL IVP SCH (09:54)
[2020-08-03] MEDS: CHLORHEXIDINE GLUCONATE 15 ML CUP MUCOUS MEM SCH ×2 (09:54→20:41)
[2020-08-03] MEDS: levETIRAcetam IV 500 MG in SODIUM CHLORIDE 0.9% 100 ML IVPB SCH ×2 (09:54→20:41)
[2020-08-03] MEDS: ASPIRIN 81 MG PO SCH (09:55)
[2020-08-03] MEDS: METOPROLOL TARTRATE 25 MG TAB PO SCH ×3 (09:55→20:41)
[2020-08-03] MEDS: AMIODARONE 200 MG TAB PO SCH ×2 (09:55→20:41)
[2020-08-03] MEDS: CLOPIDOGREL 75 MG TAB PO SCH (09:55)
--- NOTE | 2020-08-03 10:23 | P.PN ---
Subjective Progress Note Date: 08/03/20 Principal diagnosis: Coronary artery disease status post coronary artery bypass grafting Patient was reevaluated today on 07/28/2020, remains intubated and mechanically ventilated. Patient is now on assist control mode of mechanical ventilation with a rate of 16, volume is 450 FiO2 is 50% and PEEP of 5. Unfortunately the patient was noted to have poor movement of her left upper and left lower extremity last night, CT of the head last night showed acute/subacute area of infarction in the right cerebellum along with probable area of chronic infarction in the right parietal region I evaluated the patient this morning, seems to be extremely restless and agitated, seems to be neglecting the left side, and both eyes are deviated to the right and upwards. Patient seems to be moving her right side quite well, however the left side seems to be relatively weak although she was squeezing my hand with her left hand. And minimal movement noted in the left lower extremity. Patient is on Precedex, and seems to be agitated in spite of Precedex. Her ventilatory settings are reasonable, ABG is reasonable, patient is basically extubate overall, however her mental status is a bit concerning specially with her extreme agitation, keeps pulling and shaking the railing of the bed on the right side. Patient was given Ativan, and I have recommended increasing Precedex. She is not truly quite ready to be extubated today. Again my major concern is her mental status. And she is yet to be seen by neurology on consultation. Blood pressure is quite high, 160 systolic, norepinephrine was discontinued during my evaluation. She was on a very minimal dose of 0.1 mcg/kg/m of norepinephrine patient was also on milrinone. CBC is relatively normal hemoglobin is 7.4. ABG this morning showed a pO2 of 92 pCO2 of 38 pH of 7.45. This was on 50% FiO2. Electrolytes and renal profile are normal. Chest x-ray showed mostly postoperative changes of CABG 07/29/2020, I'm seeing the patient for a follow-up in the intensive care unit. This morning the patient is heavily sedated with propofol and she is calm and comfortable. Unfortunately with that, neurologic examination is not possible. I would suggest gradually cutting down the propofol and assess her neuro status and if needed utilize Precedex as an alternative sedative drip. Meanwhile, the patient remains essentially with enema to severe with a low dose of norepinephrine infusion running at 0.06 mcg/kg per minute. She has an adequate urine output. Cardiac rhythm is sinus. She has a left pleural and mediastinal chest tubes and output from those are in order of minimal, less than 100 over the past 24 hours. The chest x-ray showing cardiomegaly. There is some kyphoscoliosis of the chest. Chest tubes are in good location. ET tube is in good location. Atelectatic changes and some mild four-vessel congestion. Meanwhile, the patient's vent settings include an assist-control mode at the rate of 16 with a tidal volume of 450 and FiO2 of 40% with a PEEP of 5. The blood gases from this morning showed a pH of 7.49 with a pCO2 of 36 and pO2 of 82. On today's blood work, the patient's hemoglobin is down to 6.9 from 7.4. Platelets is at 210. 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 Intracranial cerebral arteries were essentially patent with nothing significantly stenotic. During our limited neurologic evaluation, the patient did not do mistreat any withdrawal with to painful stimulation. No Babinski. No clonus. Nevertheless, I was told by the nursing staff that she was able to move her right side yesterday and her left side once off sedation. Pupils are equal and reactive to light and order of 3 mm. No preferential gaze on today's evaluation. A sedation holiday will be given. She is on enteral nutrition. No other drips. No seizure activity. Neurologist on the case. She is on aspirin, Plavix, and she also on metoprolol 12.5 mg by mouth twice a day. She is also on high-dose statins. Progress note dated 05/29/2021. Currently, this is a 75-year-old female who was admitted to the hospital on July 21. She went to the operating room, on July 27 for a three-vessel bypass grafting with Dr. Alan. The patient has never been extubated. Unfortunately, she developed a right cerebellar CVA. She remains on the mechanical ventilator. She is currently on the volume assist control mode, rate is 16, tidal volume 400, FiO2 60%, and PEEP of 5. The blood gases show a PaO2 of 99, a PaCO2 of 40, and a pH of 7.44. She also remains on lactated Ringer's at 20 mL an hour, propofol was turned off for the spontaneous breathing trial, and she's been weaned off of norepinephrine. She is receiving vital AF, at a rate of 30 mL an hour, with a goal of 57 mL an hour. We placed the patient on pressure support of 5 CPAP of 5, and stayed in the room to observe her response to the spontaneous breathing trial. Unfortunately, the patient's respiratory rate went up above 40, and a tidal volumes dropped down to 200 range. Her minute volume was quite high, and the patient was placed back on the volume assist control mode. After the failed spontaneous breathing trial, the patient 's tidal volume was dropped down to 350, her FiO2 was decreased to 50%, and the peak level was increased from 5 to 8 cm water. White count is 12.8, hemoglobin 8, hematocrit 23.5, and platelet count 210,000. Blood gases have been reviewed. Sodium 139, potassium 3.6, chlorides 107, CO2 27, anion gap 5, BUN 33, and creatinine 0.64. Chest x-ray shows a right lower lobe infiltrate and my opinion. Progress note dated 07/31/2020 75-year-old female, that was admitted to the hospital on July 21. She went to the operating room on July 27 for a three-vessel bypass grafting with Dr. Alan. The patient has never been extubated and unfortunately, she developed a right cerebellar CVA. She currently remains on the ventilator, on the volume assist control modality. She is on a rate of 16, tidal volume 350, FiO2 50%, and a PEEP of 8. Arterial blood gases show a PaO2 of 76, PaCO2 44, and a pH of 7.4. The patient is getting lactated Ringer's at KVO, amiodarone at 0.5 mg/m, and propofol at 30 mcg/kg/m. In addition, the patient's on vital AF 1.2 at 57, with a goal of 57 mL an hour. Today, we attempted a daily interruption of sedation and a spontaneous breathing trial. As noted yesterday, she failed her trial. Today, we placed her on PSV 8, and CPAP of 5. Currently, she is doing a bit better today. A Dobbhoff tube was placed yesterday. Unfortunately, she appears to be weaker on the right side. The left side she does not move at all. In the end, she may end up with the tracheostomy tube and a ET tube. Yesterday, after the spontaneous breathing trial, the patient unfortunately developed atrial fibrillation with RVR, and that is why the patient is on amiodarone. The patient is seen today 08/01/2020 in follow-up in the intensive care unit. She remains intubated on the mechanical ventilator. Current settings assist- control of with a rate of 16, tidal volume 350, FiO2 50% and a PEEP of 8. Morning blood gases reveal a P O2 of 77, pCO2 of 40, pH 7.47. She remains sedated on propofol at 30 mcg/kg/m. Lactated Ringer's at KVO. She developed atrial fibrillation with rapid ventricular response. She is currently on amiodarone at 0.5 mg/m. She is being nourished with vital HP at 20 ML's per hour which is goal. She was given daily interruption of sedation. She develops A. fib RVR during a spontaneous breathing trials yesterday. We'll trial again today. His chest x-ray continues to show stable diffuse pleuroparenchymal changes. Endotracheal tube and gastric tubes are secured in place. Left-sided chest tube has been removed. PICC line in place. She is status post 1 unit of packed red blood cells this admission. Current hemoglobin 7.1. White count 13.6. Sodium 136. Potassium 3.5. Creatinine 0.55. AST 107. ALT 105. Albumin 2.7. She is continued on DuoNeb inhalations. Heparin for DVT prophylaxis. The patient is seen today 08/02/2020 in follow-up in the intensive care unit. She remains intubated and sedated. Currently on mechanical ventilator assist control mode at a rate of 16. Tidal volume 350. FiO2 40%. PEEP of 8. Morning blood gases reveal a P O2 of 100, pCO2 38, pH 7.49. This is on 50% FiO2. She is currently sedated on propofol at 35 mcg/kg/m. She remains on heparin drip. 0.9 normal saline at 20 ML's per hour. She is being nourished with vital HP 20 ML's per hour which is goal. She was given daily interruption of sedation yesterday she became extremely tachypneic with a respiratory rate in the 40s, not following any commands. Placed back on assist control. Trial again today. She has been having issues with atrial fibrillation. Transitioned to oral amiodarone. Chest x-ray reveals left-sided PICC line in place. Endotracheal and gastric tubes are stable. Vertebral column stimulator in place. There are bilateral infiltrates/pleural effusions. Diffusion interstitial pattern. No pneumothorax. She has received 1 unit of packed red blood cells this admission. Current hemoglobin 7.6. Platelets 387. White count 20.6. Sodium 137. Potassium 3.9. Creatinine 0.50. AST 67. ALT 83. Albumin 2.8. The patient is seen today 08/03/2020 in follow-up in the intensive care unit. Postoperative day #7. She remains intubated and sedated on the mechanical ventilator. Current mode assist control with a rate of 16, tidal been 350, FiO2 40% and a PEEP of 8. Morning blood gases reveal pO2 of 90, pCO2 40, pH 7.49. Currently on propofol at 20 mcg/kg/m. Remains on heparin drip at weight-based p rotocol. Lactated Ringer's at 20 ML's per hour. She is being nourished with vital HP at 28 ML's per hour which is goal. Free water flushes at 30 MLS every 4 hours. Sputum culture pending. White count 20.5. Hemoglobin 7.7. Sodium 139. Potassium 3.9. Creatinine 0.53. AST 70, ALT 80. She remains on DuoNeb inhalations. Chest x-ray reveals good placement of the endotracheal tube and Dobbhoff tubes. Left sided PICC line in place. Bibasilar densities persist. Perihilar increase attenuation noted within the lungs, left hemidiaphragm remains obscured greater than right. Currently afebrile. Hemodynamically stable. Currently in atrial fibrillation with controlled ventricular rate. She responds to painful stimuli on the right. She did sustain an acute bilateral cerebellar ischemic stroke right greater than left as well as a subacute evolving ischemic infarction including the right MCA/TAZ watershed territory with left-sided hemiplegia. She has not tolerated daily interruption of sedation due to her becoming tachypneic, tachycardic and hypertensive. Objective - Vital Signs Vital signs: Vital Signs Temp 98.6 F 08/03/20 09:00 Pulse 103 H 02/26/21 10:00 Resp 22 08/03/20 10:00 BP 100/55 08/03/20 10:00 Pulse Ox 92 L 08/03/20 10:00 Intake & Output 08/02/20 08/03/20 08/03/20 18:59 06:59 18:59 Intake Total 754.342 722.468 158.103 Output Total 1325 560 85 Balance -570.658 162.468 73.103 Weight 91.4 kg Intake: IV 340 260 69 Lactated Ringers 1,000 ml 240 260 60 @ 20 mls/hr IV .Q24H [facility] Rx#:[id number] levETIRAcetam IV 500 mg 100 In Sodium Chloride 0.9% 100 ml @ 400 mls/hr IVPB Q12HR [facility] Rx#:[id number] pressure bag 9 Intake, IV Titration 44.342 206.468 89.103 Amount Heparin Sod,Pork in 0.45% 106.468 57.34 NaCl 25,000 unit In 0.45 % NaCl 1 250ml.bag @ 10. 89 UNITS/KG/HR 9.997 mls/ hr IV .Q24H [facility] Rx#: [id number] propofoL 500 mg In Empty 44.342 100 31.763 Bag 1 bag @ Titrate IV . Q0M [facility] Rx#:[id number] Tube Feeding 280 196 Other 90 60 Output: Urine 1325 560 85 Other: Voiding Method Indwelling Catheter Indwelling Catheter Indwelling Catheter # Bowel Movements 1 ABP, PAP, CO, CI - Last Documented Arterial Blood Pressure 113/55 Pulmonary Artery Pressure 40/20 Cardiac Output 4.3 Cardiac Index 2.2 - Exam Intubated, sedated 75-year-old female patient. Poorly responsive, is sedated, and on mechanical ventilation. For the spontaneous breathing trial, the patient was off sedation, is still unresponsive. HEENT examination is grossly unremarkable. Mucous membranes are moist. There is a orally placed endotracheal tube, and nasogastric tube. Neck supple. Full range of motion. No adenopathy thyromegaly or neck vein distention. Cardiovascular examination reveals an irregular rhythm and rate. S1-S2 normal. No S3 or S4. No discernible murmur noted. Heart sounds are distant. Heart rate is 124 bpm. Lungs reveal bilateral rhonchi. No wheezes or crackles. Breath sounds equal bilaterally. Abdomen soft bowel sounds are heard. No masses or tenderness. Extremities are intact. No cyanosis clubbing or edema. Skin is without rash or lesion. Neurologic examination reveals a poorly responsive female, who does not move her left side. - Labs CBC & Chem 7: 08/03/20 06:20 08/03/20 06:20 Labs: Abnormal Lab Results - Last 24 Hours (Table) 08/02/20 08/02/20 08/02/20 Range/Units 06:00 12:04 16:25 WBC (3.8-10.6) k/uL RBC (3.80-5.40) m/uL Hgb (11.4-16.0) gm/dL Hct (34.0-46.0) % Plt Count (150-450) k/uL APTT 93.3 H (22.0-30.0) sec ABG pH (7.35-7.45) ABG HCO3 (21-25) mmol/L ABG Total CO2 (19-24) mmol/L ABG O2 Saturation (94-97) % Carbon Dioxide (22-30) mmol/L BUN (7-17) mg/dL Glucose (74-99) mg/dL POC Glucose (mg/dL) 155 H (75-99) mg/dL Calcium (8.4-10.2) mg/dL AST (14-36) U/L ALT (4-34) U/L Alkaline Phosphatase (38-126) U/L Total Protein (6.3-8.2) g/dL Albumin (3.5-5.0) g/dL Procalcitonin 0.12 H (0.02-0.09) ng/mL 08/02/20 08/02/20 08/03/20 Range/Units 17:11 22:43 00:27 WBC (3.8-10.6) k/uL RBC (3.80-5.40) m/uL Hgb (11.4-16.0) gm/dL Hct (34.0-46.0) % Plt Count (150-450) k/uL APTT (22.0-30.0) sec ABG pH (7.35-7.45) ABG HCO3 (21-25) mmol/L ABG Total CO2 (19-24) mmol/L ABG O2 Saturation (94-97) % Carbon Dioxide (22-30) mmol/L BUN (7-17) mg/dL Glucose (74-99) mg/dL POC Glucose (mg/dL) 137 H 130 H 123 H (75-99) mg/dL Calcium (8.4-10.2) mg/dL AST (14-36) U/L ALT (4-34) U/L Alkaline Phosphatase (38-126) U/L Total Protein (6.3-8.2) g/dL Albumin (3.5-5.0) g/dL Procalcitonin (0.02-0.09) ng/mL 08/03/20 08/03/20 08/03/20 Range/Units 04:59 06:03 06:20 WBC 22.5 H (3.8-10.6) k/uL RBC 2.52 L (3.80-5.40) m/uL Hgb 7.7 L (11.4-16.0) gm/dL Hct 23.2 L (34.0-46.0) % Plt Count 476 H (150-450) k/uL APTT (22.0-30.0) sec ABG pH 7.49 H (7.35-7.45) ABG HCO3 31 H (21-25) mmol/L ABG Total CO2 32 H (19-24) mmol/L ABG O2 Saturation 98.1 H (94-97) % Carbon Dioxide (22-30) mmol/L BUN (7-17) mg/dL Glucose (74-99) mg/dL POC Glucose (mg/dL) 133 H (75-99) mg/dL Calcium (8.4-10.2) mg/dL AST (14-36) U/L ALT (4-34) U/L Alkaline Phosphatase (38-126) U/L Total Protein (6.3-8.2) g/dL Albumin (3.5-5.0) g/dL Procalcitonin (0.02-0.09) ng/mL 08/03/20 08/03/20 08/03/20 Range/Units 06:20 06:20 07:28 WBC (3.8-10.6) k/uL RBC (3.80-5.40) m/uL Hgb (11.4-16.0) gm/dL Hct (34.0-46.0) % Plt Count (150-450) k/uL APTT 33.2 H (22.0-30.0) sec ABG pH (7.35-7.45) ABG HCO3 (21-25) mmol/L ABG Total CO2 (19-24) mmol/L ABG O2 Saturation (94-97) % Carbon Dioxide 31 H (22-30) mmol/L BUN 27 H (7-17) mg/dL Glucose 137 H (74-99) mg/dL POC Glucose (mg/dL) 129 H (75-99) mg/dL Calcium 8.2 L (8.4-10.2) mg/dL AST 70 H (14-36) U/L ALT 80 H (4-34) U/L Alkaline Phosphatase 136 H (38-126) U/L Total Protein 5.1 L (6.3-8.2) g/dL Albumin 2.7 L (3.5-5.0) g/dL Procalcitonin (0.02-0.09) ng/mL Microbiology - Last 24 Hours (Table) 08/02/20 12:00 Gram Stain - Preliminary Sputum Sputum Culture - Preliminary Assessment and Plan Assessment: Postoperative day #7, status post three-vessel bypass grafting. Routine postoperative ventilator management. The patient remains on the ventilator because of her recent ischemic CVA. Postoperative acute/subacute right cerebellar infarct. Left-sided hemiparesis. Leukocytosis of unclear etiology Remote history of non-small cell lung cancer, with previous lobectomy. Prior history of tobacco use. Mild COPD based on PFTs. Family history of premature coronary artery disease. History of hypertension. Peripheral vascular occlusive disease. Degenerative joint disease. Hyperlipidemia. Chronic insomnia. History of postoperative anemia. Plan: The patient was seen and evaluated by Dr. Luong Chest x-ray, ABGs and labs reviewed We will decrease her PEEP to 5 We will give her another daily interruption of sedation Trial pressure support of 8 CPAP of 5 with weaning parameters May require tracheostomy tube in PEG tube placement Prelim sputum culture revealing gram-positive cocci Procalcitonin 0.12 We'll initiate ceftriaxone and await further culture results We will continue to follow and make further recommendations based on her clinical status Critical care time 38 minutes I, the cosigning physician, performed a history & physical examination of the patient. Lungs sounds with bilateral scattered rhonchi. Maintaining good O2 saturations in the 90s on 40% FiO2 and PEEP of 8 via the mechanical ventilator. I discussed the assessment and plan of care with my nurse practitioner, Sierra Feliciano. I attest to the above note as dictated by her.
[2020-08-03] MEDS: SERTRALINE 100 MG TAB PO SCH (10:50)
[2020-08-03 11:17] LABS: Glucose,Whole Blood 146 mg/dL (75-99)
--- NOTE | 2020-08-03 14:32 | P.GSCN ---
History of Present Illness Consult date: 08/03/20 History of present illness: CHIEF COMPLAINT: Coronary artery disease status post coronary artery bypass grafting HISTORY OF PRESENT ILLNESS: This is a 75-year-old female with a known history of triple vessel coronary artery disease, unstable angina, myocardial infarction with stent placement, peripheral arterial disease with lower extremity stenting, lung cancer status post right lower lobectomy in 2011, hypertension, hyperlipidemia, COPD, nicotine dependence, anxiety and depression. Patient admitted to the hospital on 07/21/2020 with chest pain. She had a heart cath completed 07/23/2020 that showed severe triple-vessel coronary artery disease. She was seen by cardiothoracic surgery and is now postop day #7 status post coronary artery bypass grafting 3 vessels. Patient had undergone weaning trial on 07/27/2019 and apparently had suffered a stroke. She is currently intubated and sedated on mechanical ventilation. Pulmonary service is trying to wean patient off the ventilator. However, there are concerns that patient may require tracheostomy and PEG tube placement. Therefore, surgical service has been consulted for PEG tube placement. Cardiothoracic team will be placing the tracheostomy if needed. PAST MEDICAL HISTORY: See list. PAST SURGICAL HISTORY: See list. MEDICATIONS: See list. ALLERGIES: See list. SOCIAL HISTORY: No illicit drug use. REVIEW OF SYSTEMS: Unable to obtain patient is sedated. PHYSICAL EXAM: VITAL SIGNS: Reviewed GENERAL: Well-developed in no acute distress. HEENT: No sclera icterus. Extraocular movements grossly intact. Moist buccal mucosa. Head is atraumatic, normocephalic. No nasal drainage. Patient does have a Dobbhoff tube present ABDOMEN: Soft. Nondistended. Nontender NEUROLOGIC: Patient is intubated and sedated LABORATORY DATA: WBC 22.5 Hgb 7.7 BUN 20; creatinine 0.53 potassium 3.9 AST 70 ALT 80 Hepatitis panel negative and Covid not detected Albumin 2.7 IMAGING: ASSESSMENT: 1. Triple-vessel coronary disease status post CABG 3 vessels, postoperative day #7 2. Ventilator dependent respiratory failure 3. Severe Protein calorie malnutrition 4. Acute/subacute right cerebellar infarct 5. History of non-small cell lung cancer with previous lobectomy PLAN: -Patient is tentatively scheduled to have PEG tube placement with Dr. Chavarria on 08/06/2020 with coinciding tracheostomy placement with Dr. Habib -IV heparin will need to be discontinued prior to surgery -Continue ICU management -Continue supportive care Thank you for this consultation Physician Ch[employer] Brick note has been reviewed by physician. Signing provider agrees with the documented findings, assessment, and plan of care. Past Medical History Past Medical History: Coronary Artery Disease (CAD), Cancer, Chest Pain / Angina, Heart Failure, COPD, Hyperlipidemia, Hypertension, Myocardial Infarction (DE), Osteoarthritis (OA), Vascular Disorder Additional Past Medical History / Comment(s): hx. lung cancer, hx. colon polyps, frequent lower side pain, urinary frequency, PAD with lower extremity stenting Last Myocardial Infarction Date:: unknown History of Any Multi-Drug Resistant Organisms: None Reported Past Surgical History: Heart Catheterization With Stent, Hysterectomy Additional Past Surgical History / Comment(s): right lower lobectomy, colonoscopies, stenting,angioplasty lower legs Past Anesthesia/Blood Transfusion Reactions: No Reported Reaction Date of Last Stent Placement:: 2004 Past Psychological History: Anxiety, Depression Smoking Status: Former smoker Past Alcohol Use History: None Reported Additional Past Alcohol Use History / Comment(s): quit smoking 2011, 1ppd since teens, doesn't drink much anymore Past Drug Use History: None Reported - Past Family History Mother Family Medical History: Cancer Additional Family Medical History / Comment(s): colon Son(s) Family Medical History: Coronary Artery Disease (CAD) Additional Family Medical History / Comment(s): 1 son having CABG in his late 40s, the other son having CABG in his mid 50s Medications and Allergies Home Medications Medication Instructions Recorded Confirmed Type ALPRAZolam [Xanax] 0.25 mg PO BID 04/02/18 07/21/20 History Aspirin EC [Ecotrin Low Dose] 81 mg PO HS 04/02/18 07/21/20 History Atorvastatin [Lipitor] 80 mg PO HS 04/02/18 07/21/20 History Cholecalciferol [Vitamin D3 (25 1,000 unit PO HS 04/02/18 07/21/20 History Mcg = 1000 Iu)] Clopidogrel [Plavix] 75 mg PO HS 04/02/18 07/21/20 History Ezetimibe [Zetia] 10 mg PO HS 04/02/18 07/21/20 History HYDROcodone/APAP 5-325MG [[place] 1 tab PO TID 04/02/18 07/21/20 History 5-325] Sertraline [Zoloft] 100 mg PO HS 04/02/18 07/21/20 History cilostazoL [Pletal] 100 mg PO BID 04/02/18 07/21/20 History Carvedilol [Coreg] 12.5 mg PO BID 03/19/19 07/21/20 History Losartan [Cozaar] 25 mg PO HS 03/19/19 07/21/20 History Cyclobenzaprine [Flexeril] 10 mg PO BID PRN 07/21/20 07/21/20 History Gabapentin [Neurontin] 300 mg PO BID 07/21/20 07/21/20 History Ibuprofen [Motrin] 800 mg PO Q12H PRN 07/21/20 07/21/20 History amLODIPine [Norvasc] 5 mg PO DAILY 07/21/20 07/21/20 History traZODone HCL 100 mg PO HS 07/21/20 07/21/20 History Allergies Allergy/AdvReac Type Severity Reaction Status Date / Time Penicillins AdvReac Rash/Hives, Verified 07/21/20 09:44 LOC zolpidem [From Ambien] AdvReac Hallucinati Verified 07/21/20 09:44 ons Surgical - Exam Vital Signs Temp Pulse Resp BP Pulse Ox 98 F 72 18 204/112 96 07/21/20 07:56 07/21/20 07:56 07/21/20 07:56 07/21/20 07:56 07/21/20 07:56 Results - Labs 08/03/20 06:20 08/03/20 06:20 Abnormal Lab Results - Last 24 Hours (Table) 08/02/20 08/02/20 08/02/20 Range/Units 06:00 16:25 17:11 WBC (3.8-10.6) k/uL RBC (3.80-5.40) m/uL Hgb (11.4-16.0) gm/dL Hct (34.0-46.0) % Plt Count (150-450) k/uL APTT 93.3 H (22.0-30.0) sec ABG pH (7.35-7.45) ABG HCO3 (21-25) mmol/L ABG Total CO2 (19-24) mmol/L ABG O2 Saturation (94-97) % Carbon Dioxide (22-30) mmol/L BUN (7-17) mg/dL Glucose (74-99) mg/dL POC Glucose (mg/dL) 137 H (75-99) mg/dL Calcium (8.4-10.2) mg/dL AST (14-36) U/L ALT (4-34) U/L Alkaline Phosphatase (38-126) U/L Total Protein (6.3-8.2) g/dL Albumin (3.5-5.0) g/dL Procalcitonin 0.12 H (0.02-0.09) ng/mL 08/02/20 08/03/20 08/03/20 Range/Units 22:43 00:27 03:03 WBC (3.8-10.6) k/uL RBC (3.80-5.40) m/uL Hgb (11.4-16.0) gm/dL Hct (34.0-46.0) % Plt Count (150-450) k/uL APTT (22.0-30.0) sec ABG pH (7.35-7.45) ABG HCO3 (21-25) mmol/L ABG Total CO2 (19-24) mmol/L ABG O2 Saturation (94-97) % Carbon Dioxide (22-30) mmol/L BUN (7-17) mg/dL Glucose (74-99) mg/dL POC Glucose (mg/dL) 130 H 123 H (75-99) mg/dL Calcium (8.4-10.2) mg/dL AST (14-36) U/L ALT (4-34) U/L Alkaline Phosphatase (38-126) U/L Total Protein (6.3-8.2) g/dL Albumin (3.5-5.0) g/dL Procalcitonin 0.12 H (0.02-0.09) ng/mL 08/03/20 08/03/20 08/03/20 Range/Units 04:59 06:03 06:20 WBC 22.5 H (3.8-10.6) k/uL RBC 2.52 L (3.80-5.40) m/uL Hgb 7.7 L (11.4-16.0) gm/dL Hct 23.2 L (34.0-46.0) % Plt Count 476 H (150-450) k/uL APTT (22.0-30.0) sec ABG pH 7.49 H (7.35-7.45) ABG HCO3 31 H (21-25) mmol/L ABG Total CO2 32 H (19-24) mmol/L ABG O2 Saturation 98.1 H (94-97) % Carbon Dioxide (22-30) mmol/L BUN (7-17) mg/dL Glucose (74-99) mg/dL POC Glucose (mg/dL) 133 H (75-99) mg/dL Calcium (8.4-10.2) mg/dL AST (14-36) U/L ALT (4-34) U/L Alkaline Phosphatase (38-126) U/L Total Protein (6.3-8.2) g/dL Albumin (3.5-5.0) g/dL Procalcitonin (0.02-0.09) ng/mL 08/03/20 08/03/20 08/03/20 Range/Units 06:20 06:20 07:28 WBC (3.8-10.6) k/uL RBC (3.80-5.40) m/uL Hgb (11.4-16.0) gm/dL Hct (34.0-46.0) % Plt Count (150-450) k/uL APTT 33.2 H (22.0-30.0) sec ABG pH (7.35-7.45) ABG HCO3 (21-25) mmol/L ABG Total CO2 (19-24) mmol/L ABG O2 Saturation (94-97) % Carbon Dioxide 31 H (22-30) mmol/L BUN 27 H (7-17) mg/dL Glucose 137 H (74-99) mg/dL POC Glucose (mg/dL) 129 H (75-99) mg/dL Calcium 8.2 L (8.4-10.2) mg/dL AST 70 H (14-36) U/L ALT 80 H (4-34) U/L Alkaline Phosphatase 136 H (38-126) U/L Total Protein 5.1 L (6.3-8.2) g/dL Albumin 2.7 L (3.5-5.0) g/dL Procalcitonin (0.02-0.09) ng/mL 08/03/20 Range/Units 11:16 WBC (3.8-10.6) k/uL RBC (3.80-5.40) m/uL Hgb (11.4-16.0) gm/dL Hct (34.0-46.0) % Plt Count (150-450) k/uL APTT (22.0-30.0) sec ABG pH (7.35-7.45) ABG HCO3 (21-25) mmol/L ABG Total CO2 (19-24) mmol/L ABG O2 Saturation (94-97) % Carbon Dioxide (22-30) mmol/L BUN (7-17) mg/dL Glucose (74-99) mg/dL POC Glucose (mg/dL) 146 H (75-99) mg/dL Calcium (8.4-10.2) mg/dL AST (14-36) U/L ALT (4-34) U/L Alkaline Phosphatase (38-126) U/L Total Protein (6.3-8.2) g/dL Albumin (3.5-5.0) g/dL Procalcitonin (0.02-0.09) ng/mL Microbiology - Last 24 Hours (Table) 08/02/20 09:31 Blood Culture - Preliminary Blood No Growth after 24 hours 08/02/20 12:00 Gram Stain - Preliminary Sputum Sputum Culture - Preliminary Diabetes panel 08/03/20 Range/Units 06:20 Sodium 139 (137-145) mmol/L Potassium 3.9 (3.5-5.1) mmol/L Chloride 102 (98-107) mmol/L Carbon Dioxide 31 H (22-30) mmol/L BUN 27 H (7-17) mg/dL Creatinine 0.53 (0.52-1.04) mg/dL Glucose 137 H (74-99) mg/dL Calcium 8.2 L (8.4-10.2) mg/dL AST 70 H (14-36) U/L ALT 80 H (4-34) U/L Alkaline Phosphatase 136 H (38-126) U/L Total Protein 5.1 L (6.3-8.2) g/dL Albumin 2.7 L (3.5-5.0) g/dL Calcium panel 08/03/20 Range/Units 06:20 Calcium 8.2 L (8.4-10.2) mg/dL Albumin 2.7 L (3.5-5.0) g/dL Pituitary panel 08/03/20 Range/Units 06:20 Sodium 139 (137-145) mmol/L Potassium 3.9 (3.5-5.1) mmol/L Chloride 102 (98-107) mmol/L Carbon Dioxide 31 H (22-30) mmol/L BUN 27 H (7-17) mg/dL Creatinine 0.53 (0.52-1.04) mg/dL Glucose 137 H (74-99) mg/dL Calcium 8.2 L (8.4-10.2) mg/dL Adrenal panel 08/03/20 Range/Units 06:20 Sodium 139 (137-145) mmol/L Potassium 3.9 (3.5-5.1) mmol/L Chloride 102 (98-107) mmol/L Carbon Dioxide 31 H (22-30) mmol/L BUN 27 H (7-17) mg/dL Creatinine 0.53 (0.52-1.04) mg/dL Glucose 137 H (74-99) mg/dL Calcium 8.2 L (8.4-10.2) mg/dL Total Bilirubin 0.7 (0.2-1.3) mg/dL AST 70 H (14-36) U/L ALT 80 H (4-34) U/L Alkaline Phosphatase 136 H (38-126) U/L Total Protein 5.1 L (6.3-8.2) g/dL Albumin 2.7 L (3.5-5.0) g/dL
[2020-08-03 15:59] LABS: Glucose,Whole Blood 138 mg/dL (75-99)
[2020-08-03] MEDS: HEPARIN SOD,PORK IN 0.45% NACL 25,000 UNIT in 0.45% NACL 1 250ML.BAG IV SCH (17:09)
[2020-08-03 20:09] LABS: Glucose,Whole Blood 101 mg/dL (75-99)
[2020-08-03] MEDS: ATORVASTATIN 80 MG TAB PO SCH (20:41)
[2020-08-03] MEDS: EZETIMIBE 10 MG TAB PO SCH (20:42)
[2020-08-03] MEDS: SENNOSIDES-DOCUSATE SODIUM 1 EACH TAB PO SCH (20:42)
--- NOTE | 2020-08-03 21:37 | P.PN ---
Subjective Progress Note Date: 08/02/20 08/02/2020: Patient was seen for a follow-up. Patient's son Saurav was also present today. Patient apparently underwent a sedation holiday at noon. By 2 PM her respiration went up to 40, heart rate went up to 160, and she developed atrial fibrillation with rapid ventricular rate. Patient was moving right side well, but no movement left upper extremity. She was moving the right arm, but does not follow commands. She has upward gaze. She is now back on propofol 20 g. She is not tracking, not following commands. 08/01/2020: Patient continues to be on mechanical ventilation. Per nursing report, sedation was decreased from propofol 25 g down to 10 mcg, patient did not improve mentally, but became very tachycardic with respiration going up to 40/m. Therefore she was placed back on high-dose sedation. 07/31/2020: Patient was seen at 10:10 AM. Patient has been off sedation since 9 AM. Patient does open her eyes, but gaze upwards into the right. Pupils are round and reacting. Patient is completely flaccid on the left side. Patient right arm also is flaccid. Very minimal movement of the right leg. 07/30/2020 Patient was seen for initial consultation by Dr. Matt Luong on 07/28/2020. Please refer to his detailed report. This is a follow-up performed. Patient came to the hospital with chest pain, underwent CABG on 07/27/2020. After patient was off sedation, was noted to have left-sided weakness. CT head showed acute right cerebellar infarct and chronic right parietal ischemic infarct. Patient has been severely encephalopathic. Patient is having some abnormal eye movement, for which EEG was performed, which revealed burst and suppression activity likely due to medication effect propofol. There is no focal slowing or obvious epileptiform activity. Clinical correlation is recommended. Patient was placed on Keppra 500 mg twice a day after loading dose of 1000 mg. Patient at present is on propofol 40 g. When the sedation is decreased, patient moves her right arm and right leg spontaneously but non-purposefully. Her left arm is flaccid. She has some movement in the left leg but not as good as the right side. Patient has developed atrial fibrillation with rapid ventricular rate overnight, for which she was started on amiodarone drip. This morning at 10:30 she converted back to normal sinus rhythm. Patient had a repeat CT head performed 07/29/2020, which revealed no significant change. Relatively recent ischemic insult in the right cerebellar hemisphere. No evidence for hemorrhagic transformation. This probably would not explain left hemiparesis as noted on examination by the staff. Patient at present is sedated, therefore examination limited. Objective - Vital Signs Vital signs: Vital Signs Temp 99.5 F 08/02/20 12:00 Pulse 68 08/02/20 15:23 Resp 34 H 08/02/20 15:00 BP 118/56 08/02/20 15:00 Pulse Ox 90 L 08/02/20 15:00 Intake & Output 08/01/20 08/02/20 08/02/20 18:59 06:59 18:59 Intake Total 907.940 451.241 562.342 Output Total 0751 335 4360 Balance -112.060 -238.759 -572.658 Weight 91.8 kg Intake: IV 320 340 260 Lactated Ringers 1,000 ml 220 240 160 @ 20 mls/hr IV .Q24H [facility] Rx#:[id number] levETIRAcetam IV 500 mg 100 100 100 In Sodium Chloride 0.9% 100 ml @ 400 mls/hr IVPB Q12HR [facility] Rx#:[id number] Intake, IV Titration 129.940 83.241 44.342 Amount propofoL 500 mg In Empty 129.940 83.241 44.342 Bag 1 bag @ Titrate IV . Q0M [facility] Rx#:[id number] Tube Feeding 308 28 168 Other 150 90 Output: Urine 1584 137 2517 Other: Voiding Method Indwelling Catheter Indwelling Catheter Indwelling Catheter # Bowel Movements 1 ABP, PAP, CO, CI - Last Documented Arterial Blood Pressure 113/55 Pulmonary Artery Pressure 40/20 Cardiac Output 4.3 Cardiac Index 2.2 - Exam Patient is on propofol 20 g. Her eyes are open, but gaze is upwards and sometimes to the right. Pupils are round and reacting. Patient is on mechanical ventilation. Patient is flaccid on the left side. Per nursing report, we drug holiday, she has some nonpurposeful movement on the right side but did not follow commands. Patient has bilateral Babinski. - Labs CBC & Chem 7: 08/03/20 06:20 08/03/20 06:20 Labs: Abnormal Lab Results - Last 24 Hours (Table) 08/02/20 08/02/20 08/02/20 Range/Units 04:18 05:06 06:00 WBC 20.6 H (3.8-10.6) k/uL RBC 2.54 L (3.80-5.40) m/uL Hgb 7.6 L (11.4-16.0) gm/dL Hct 23.2 L (34.0-46.0) % Neutrophils # 16.7 H (1.3-7.7) k/uL Monocytes # 1.4 H (0-1.0) k/uL APTT (22.0-30.0) sec ABG pH 7.49 H (7.35-7.45) ABG HCO3 29 H (21-25) mmol/L ABG Total CO2 30 H (19-24) mmol/L ABG O2 Saturation 98.9 H (94-97) % Carbon Dioxide (22-30) mmol/L BUN (7-17) mg/dL Creatinine (0.52-1.04) mg/dL Glucose (74-99) mg/dL POC Glucose (mg/dL) 130 H (75-99) mg/dL Calcium (8.4-10.2) mg/dL AST (14-36) U/L ALT (4-34) U/L Alkaline Phosphatase (38-126) U/L Total Protein (6.3-8.2) g/dL Albumin (3.5-5.0) g/dL Urine Blood (Negative) Urine RBC (0-5) /hpf Urine Mucus (None) /hpf 08/02/20 08/02/20 08/02/20 Range/Units 06:00 08:42 09:30 WBC (3.8-10.6) k/uL RBC (3.80-5.40) m/uL Hgb (11.4-16.0) gm/dL Hct (34.0-46.0) % Neutrophils # (1.3-7.7) k/uL Monocytes # (0-1.0) k/uL APTT (22.0-30.0) sec ABG pH (7.35-7.45) ABG HCO3 (21-25) mmol/L ABG Total CO2 (19-24) mmol/L ABG O2 Saturation (94-97) % Carbon Dioxide 31 H (22-30) mmol/L BUN 24 H (7-17) mg/dL Creatinine 0.50 L (0.52-1.04) mg/dL Glucose 136 H (74-99) mg/dL POC Glucose (mg/dL) 147 H (75-99) mg/dL Calcium 8.2 L (8.4-10.2) mg/dL AST 67 H (14-36) U/L ALT 83 H (4-34) U/L Alkaline Phosphatase 128 H (38-126) U/L Total Protein 5.2 L (6.3-8.2) g/dL Albumin 2.8 L (3.5-5.0) g/dL Urine Blood Moderate H (Negative) Urine RBC 46 H (0-5) /hpf Urine Mucus Rare H (None) /hpf 08/02/20 08/02/20 08/02/20 Range/Units 12:04 16:25 17:11 WBC (3.8-10.6) k/uL RBC (3.80-5.40) m/uL Hgb (11.4-16.0) gm/dL Hct (34.0-46.0) % Neutrophils # (1.3-7.7) k/uL Monocytes # (0-1.0) k/uL APTT 93.3 H (22.0-30.0) sec ABG pH (7.35-7.45) ABG HCO3 (21-25) mmol/L ABG Total CO2 (19-24) mmol/L ABG O2 Saturation (94-97) % Carbon Dioxide (22-30) mmol/L BUN (7-17) mg/dL Creatinine (0.52-1.04) mg/dL Glucose (74-99) mg/dL POC Glucose (mg/dL) 155 H 137 H (75-99) mg/dL Calcium (8.4-10.2) mg/dL AST (14-36) U/L ALT (4-34) U/L Alkaline Phosphatase (38-126) U/L Total Protein (6.3-8.2) g/dL Albumin (3.5-5.0) g/dL Urine Blood (Negative) Urine RBC (0-5) /hpf Urine Mucus (None) /hpf Assessment and Plan Assessment: * Acute bilateral cerebellar ischemic stroke (Right>left), as well as subacute evolving ischemic infarction involving the right MCA/TAZ watershed territory with left hemiplegia. Computed tomography scan also showed subacute left caudate head ischemic infarction. The strokes were noted post CABG . Patient probably had showers of emboli from cardiac source. Stroke likely cardioembolic. * New onset atrial fibrillation, but now back in sinus rhythm (with amiodarone). * Left hemiplegia, not able to be explained by "right cerebellar stroke". Patient probably had showers of emboli from cardiac source. * Bilateral ICA stenosis > 75% per CTA, however no significant stenosis per carotid Doppler. * Altered mental status probably due to ischemic encephalopathy, with superimposed toxic metabolic causes. * Peripheral arterial disease with history of lower extremity stenting * History of lung cancer status post right lower lobectomy * Anemia * Hypertension * Hyperlipidemia * X tobacco use. Plan: * Patient has been started on heparin because of recurrence of atrial f ibrillation. * Suggest MRI of the brain to evaluate for extent of the strokes, when possible. * Continue high-dose statins. * Prognosis very guarded based upon computed tomography scan results. * Reviewed CT scans with the radiologist, who agreed with evidence of multiple bilateral cerebellar and hemispheric subacute/evolving ischemic strokes. * Spoke to patient's son Saurav Arguello, and all questions answered. * Family is considering PEG and trach placement on Thursday if she does not improve over the next few days.
--- NOTE | 2020-08-03 21:46 | P.PN ---
Subjective Progress Note Date: 08/03/20 08/03/2020: Patient continues to be encephalopathic, has been off sedation, following some commands as per examination. 08/02/2020: Patient was seen for a follow-up. Patient's son Saurav was also present today. Patient apparently underwent a sedation holiday at noon. By 2 PM her respiration went up to 40, heart rate went up to 160, and she developed atrial fibrillation with rapid ventricular rate. Patient was moving right side well, but no movement left upper extremity. She was moving the right arm, but does not follow commands. She has upward gaze. She is now back on propofol 20 g. She is not tracking, not following commands. 08/01/2020: Patient continues to be on mechanical ventilation. Per nursing report, sedation was decreased from propofol 25 g down to 10 mcg, patient did not improve mentally, but became very tachycardic with respiration going up to 40/m. Therefore she was placed back on high-dose sedation. 07/31/2020: Patient was seen at 10:10 AM. Patient has been off sedation since 9 AM. Patient does open her eyes, but gaze upwards into the right. Pupils are round and reacting. Patient is completely flaccid on the left side. Patient right arm also is flaccid. Very minimal movement of the right leg. 07/30/2020 Patient was seen for initial consultation by Dr. Matt Luong on 07/28/2020. Please refer to his detailed report. This is a follow-up performed. Patient came to the hospital with chest pain, underwent CABG on 07/27/2020. After patient was off sedation, was noted to have left-sided weakness. CT head showed acute right cerebellar infarct and chronic right parietal ischemic infarct. Patient has been severely encephalopathic. Patient is having some abnormal eye movement, for which EEG was performed, which revealed burst and suppression activity likely due to medication effect propofol. There is no focal slowing or obvious epileptiform activity. Clinical correlation is recommended. Patient was placed on Keppra 500 mg twice a day after loading dose of 1000 mg. Patient at present is on propofol 40 g. When the sedation is decreased, krystle patricio moves her right arm and right leg spontaneously but non-purposefully. Her left arm is flaccid. She has some movement in the left leg but not as good as the right side. Patient has developed atrial fibrillation with rapid ventricular rate overnight, for which she was started on amiodarone drip. This morning at 10:30 she converted back to normal sinus rhythm. Patient had a repeat CT head performed 07/29/2020, which revealed no significant change. Relatively recent ischemic insult in the right cerebellar hemisphere. No evidence for hemorrhagic transformation. This probably would not explain left hemiparesis as noted on examination by the staff. Patient at present is sedated, therefore examination limited. Objective - Vital Signs Vital signs: Vital Signs Temp 99.4 F 08/03/20 20:00 Pulse 76 08/03/20 21:00 Resp 24 08/03/20 21:00 BP 135/62 08/03/20 21:00 Pulse Ox 93 L 08/03/20 21:00 Intake & Output 08/03/20 08/03/20 08/04/20 06:59 18:59 06:59 Intake Total 722.468 871.196 146 Output Total 560 460 75 Balance 162.468 411.196 71 Weight 91.4 kg 91.4 kg Intake: IV 260 220 60 Lactated Ringers 1,000 ml 260 220 60 @ 20 mls/hr IV .Q24H INÉS Rx#:[id number] Intake, IV Titration 206.468 281.196 Amount Heparin Sod,Pork in 0.45% 106.468 143.532 NaCl 25,000 unit In 0.45 % NaCl 1 250ml.bag @ 10. 89 UNITS/KG/HR 9.997 mls/ hr IV .Q24H IN[facility]S Rx#: [id number] propofoL 500 mg In Empty 100 137.664 Bag 1 bag @ Titrate IV . Q0M IN[facility]S Rx#:[id number] Tube Feeding 196 280 56 Other 60 90 30 Output: Urine 560 460 75 Other: Voiding Method Indwelling Catheter Indwelling Catheter Indwelling Catheter ABP, PAP, CO, CI - Last Documented Arterial Blood Pressure 113/55 Pulmonary Artery Pressure 40/20 Cardiac Output 4.3 Cardiac Index 2.2 - Exam Patient was on propofol 10 g, which was turned off about 20 minutes ago. Patient did open her eyes, turns her eyes and head towards me when her name was called. Very questionable eye contact, not consistent. Pupils are round and reacting. Oculocephalics were present. Pupils are round and reacting. Corneals are present. Patient moves her right arm and leg spontaneously, inconsistently on command. No movement on the left side. Patient does have fa cial grimacing on noxious stimulus on the right upper limb. Left side is flaccid. Patient has bilateral Babinski. Patient on mechanical ventilation. Respiratory therapist was also present. Patient will undergo CPAP trial. - Labs CBC & Chem 7: 08/03/20 06:20 08/03/20 06:20 Labs: Abnormal Lab Results - Last 24 Hours (Table) 08/02/20 08/02/20 08/03/20 Range/Units 06:00 22:43 00:27 WBC (3.8-10.6) k/uL RBC (3.80-5.40) m/uL Hgb (11.4-16.0) gm/dL Hct (34.0-46.0) % Plt Count (150-450) k/uL APTT (22.0-30.0) sec ABG pH (7.35-7.45) ABG HCO3 (21-25) mmol/L ABG Total CO2 (19-24) mmol/L ABG O2 Saturation (94-97) % Carbon Dioxide (22-30) mmol/L BUN (7-17) mg/dL Glucose (74-99) mg/dL POC Glucose (mg/dL) 130 H 123 H (75-99) mg/dL Calcium (8.4-10.2) mg/dL AST (14-36) U/L ALT (4-34) U/L Alkaline Phosphatase (38-126) U/L Total Protein (6.3-8.2) g/dL Albumin (3.5-5.0) g/dL Procalcitonin 0.12 H (0.02-0.09) ng/mL 08/03/20 08/03/20 08/03/20 Range/Units 03:03 04:59 06:03 WBC (3.8-10.6) k/uL RBC (3.80-5.40) m/uL Hgb (11.4-16.0) gm/dL Hct (34.0-46.0) % Plt Count (150-450) k/uL APTT (22.0-30.0) sec ABG pH 7.49 H (7.35-7.45) ABG HCO3 31 H (21-25) mmol/L ABG Total CO2 32 H (19-24) mmol/L ABG O2 Saturation 98.1 H (94-97) % Carbon Dioxide (22-30) mmol/L BUN (7-17) mg/dL Glucose (74-99) mg/dL POC Glucose (mg/dL) 133 H (75-99) mg/dL Calcium (8.4-10.2) mg/dL AST (14-36) U/L ALT (4-34) U/L Alkaline Phosphatase (38-126) U/L Total Protein (6.3-8.2) g/dL Albumin (3.5-5.0) g/dL Procalcitonin 0.12 H (0.02-0.09) ng/mL 08/03/20 08/03/20 08/03/20 Range/Units 06:20 06:20 06:20 WBC 22.5 H (3.8-10.6) k/uL RBC 2.52 L (3.80-5.40) m/uL Hgb 7.7 L (11.4-16.0) gm/dL Hct 23.2 L (34.0-46.0) % Plt Count 476 H (150-450) k/uL APTT 33.2 H (22.0-30.0) sec ABG pH (7.35-7.45) ABG HCO3 (21-25) mmol/L ABG Total CO2 (19-24) mmol/L ABG O2 Saturation (94-97) % Carbon Dioxide 31 H (22-30) mmol/L BUN 27 H (7-17) mg/dL Glucose 137 H (74-99) mg/dL POC Glucose (mg/dL) (75-99) mg/dL Calcium 8.2 L (8.4-10.2) mg/dL AST 70 H (14-36) U/L ALT 80 H (4-34) U/L Alkaline Phosphatase 136 H (38-126) U/L Total Protein 5.1 L (6.3-8.2) g/dL Albumin 2.7 L (3.5-5.0) g/dL Procalcitonin (0.02-0.09) ng/mL 08/03/20 08/03/20 08/03/20 Range/Units 07:28 11:16 14:11 WBC (3.8-10.6) k/uL RBC (3.80-5.40) m/uL Hgb (11.4-16.0) gm/dL Hct (34.0-46.0) % Plt Count (150-450) k/uL APTT 63.5 H (22.0-30.0) sec ABG pH (7.35-7.45) ABG HCO3 (21-25) mmol/L ABG Total CO2 (19-24) mmol/L ABG O2 Saturation (94-97) % Carbon Dioxide (22-30) mmol/L BUN (7-17) mg/dL Glucose (74-99) mg/dL POC Glucose (mg/dL) 129 H 146 H (75-99) mg/dL Calcium (8.4-10.2) mg/dL AST (14-36) U/L ALT (4-34) U/L Alkaline Phosphatase (38-126) U/L Total Protein (6.3-8.2) g/dL Albumin (3.5-5.0) g/dL Procalcitonin (0.02-0.09) ng/mL 08/03/20 08/03/20 Range/Units 15:58 20:08 WBC (3.8-10.6) k/uL RBC (3.80-5.40) m/uL Hgb (11.4-16.0) gm/dL Hct (34.0-46.0) % Plt Count (150-450) k/uL APTT (22.0-30.0) sec ABG pH (7.35-7.45) ABG HCO3 (21-25) mmol/L ABG Total CO2 (19-24) mmol/L ABG O2 Saturation (94-97) % Carbon Dioxide (22-30) mmol/L BUN (7-17) mg/dL Glucose (74-99) mg/dL POC Glucose (mg/dL) 138 H 101 H (75-99) mg/dL Calcium (8.4-10.2) mg/dL AST (14-36) U/L ALT (4-34) U/L Alkaline Phosphatase (38-126) U/L Total Protein (6.3-8.2) g/dL Albumin (3.5-5.0) g/dL Procalcitonin (0.02-0.09) ng/mL Microbiology - Last 24 Hours (Table) 08/02/20 09:31 Blood Culture - Preliminary Blood No Growth after 24 hours 08/02/20 12:00 Gram Stain - Preliminary Sputum Sputum Culture - Preliminary Assessment and Plan Assessment: * Acute bilateral cerebellar ischemic stroke (Right>left), as well as subacute evolving ischemic infarction involving the right MCA/TAZ watershed territory with left hemiplegia. Computed tomography scan also showed subacute left caudate head ischemic infarction. The strokes were noted post CABG 07/27/2020. Patient probably had showers of emboli from cardiac source. Stroke likely cardioembolic. * New onset paroxysmal atrial fibrillation, but now back in sinus rhythm (with amiodarone). * Ventilator-dependent respiratory failure on mechanical ventilation. * Bilateral ICA stenosis > 75% per CTA, however no significant stenosis per carotid Doppler. * Altered mental status probably due to ischemic encephalopathy, with superimposed toxic metabolic causes. * Abnormal EEG with burst suppressed pattern, empirically on Keppra. Patient never had any clinical seizure. * Peripheral arterial disease with history of lower extremity stenting * History of lung cancer status post right lower lobectomy * Anemia * Hypertension * Hyperlipidemia * X tobacco use. Plan: * Probable PEG and track placement on 08/06/2020. * Patient has been started on heparin because of recurrence of atrial fibrillation. Okay to DC Plavix but keep on aspirin because of bilateral ICA stenosis. * Continue high-dose statins. * As there is no active neurological issue, please reconsult neurology if any other concerns. Dr. Yamil Luong Will resume neurology service on 08/06/2020.
--- NOTE | 2020-08-03 22:06 | P.PN ---
Subjective 08/03/2020 This is a pleasant 75-year-old patient of Dr. Derrick Neal. Chronic stable medical conditions include COPD, hyperlipidemia, hypertension, ostial arthritis, lung cancer 6 years ago, peripheral artery disease, coronary artery stent, perip heral stents, anxiety depression. Patient presented after she was having central chest pressure at home then went to both the shoulder blades for the arms. Admitted with unstable angina. underwent cardiac catheterization. Found to have severe triple-vessel coronary artery disease. Pulmonary team evaluated the patient and told her low risk for surgery. July 27-underwent coronary bypass 3, ligation of left atrial appendage. Patient received a unit of blood.postsurgery was found to have weakness on the left side.stroke was noted on the computed tomography scan. Including lacunar infarct.patient has been in and out of atrial fibrillation. computed tomography scan of the brain reviewed by Dr. Carrion: Acute bilateral cerebellar ischemic stroke as well as subacute evolving ischemic infarction involving the right MCA/TAZ watershed territory left caudate head ischemic infarction. Downey to be embolic. ICU-ventilator , has NG tube Today she remains in the ICU intubated and sedated with pulmonary/critical care team following her closely. And help with vent management. Her breathing rate is around 28, blood pressure 149/77, she is a slightly tachycardiac 95-120. Afebrile for 24 hours. Labs showed leukocytosis of 22.5, hemoglobin 7.7. BMP is unremarkable. Liver enzymes mildly elevated. Glucose is controlled. Patient evaluated by surgery team for PEG tube placement on 08/06, with coinciding take his replacement patient is undergoing sedation holiday by pulmonary team Sputum culture is growing gram-positive cocci and antibiotics were initiated by pulmonary team, currently she is on ceftriaxone Medication included heparin drip, Keppra and amiodarone Review of systems: N/a Active Medications Generic Name Dose Route Start Last Admin Trade Name Freq PRN Reason Stop Dose Admin Hydrocodone Bitart/Acetaminophen 1 each 07/28/20 01:54 08/02/20 11:14 Hydrocodone/Apap 5-325mg 1 Each Tab PO 1 each Q4HR PRN Administration Moderate Pain Albuterol/Ipratropium 3 ml 07/27/20 14:15 Ipratropium-Albuterol 3 Ml Neb INHALATION RT-Q2H PRN Shortness Of Breath Or Wheezing Albuterol/Ipratropium 3 ml 07/27/20 19:55 08/03/20 19:05 Ipratropium-Albuterol 3 Ml Neb INHALATION 3 ml RT-QID INÉS Administration Amiodarone HCl 400 mg 08/02/20 09:00 08/03/20 20:41 Amiodarone 200 Mg Tab PO 400 mg BID INÉS Administration Aspirin 81 mg 08/02/20 09:00 08/03/20 09:55 Aspirin 81 Mg PO 81 mg DAILY INÉS Administration Atorvastatin Calcium 80 mg 07/21/20 21:00 08/03/20 20:41 Atorvastatin 80 Mg Tab PO 80 mg HS INÉS Administration Benzocaine/Menthol 1 each 07/27/20 14:15 Benzocaine/Menthol Lozeng 1 Each Lozenge MUCOUS MEM Q2H PRN Sore Throat Bisacodyl 10 mg 07/28/20 09:00 08/01/20 14:39 Bisacodyl 10 Mg Supp RECTAL 10 mg DAILY PRN Administration Constipation Chlorhexidine Gluconate 15 ml 07/31/20 21:00 08/03/20 20:41 Chlorhexidine Gluconate 15 Ml Cup MUCOUS MEM 15 ml BID INÉS Administration Ezetimibe 10 mg 07/21/20 21:00 08/03/20 20:42 Ezetimibe 10 Mg Tab PO 10 mg HS INÉS Administration Heparin Sodium (Porcine) 0 unit 08/02/20 08:29 08/03/20 08:21 Heparin Sodium,Porcine 5,000 Unit/Ml 1 Ml Vial IV 4,550 unit PER PROTOCOL PRN Administration Low PTT Protocol Lactated Ringer's 1,000 mls @ 20 mls/hr 07/27/20 14:15 08/03/20 05:28 Lactated Ringers IV 20 mls/hr .Q24H INÉS Administration Calcium Gluconate 2 gm/ Sodium 120 mls @ 100 mls/hr 07/27/20 14:15 Chloride IVPB 08/06/20 14:16 ONCE PRN Ionized Calcium less than 4.4 Propofol 500 mg/ IV Solution 50 mls @ 0 mls/hr 07/28/20 23:00 08/03/20 19:25 IV 25 mcg/kg/min .Q0M INÉS 13.71 mls/hr Administration Protocol Titrate Levetiracetam 500 mg/ Sodium 105 mls @ 400 mls/hr 07/29/20 21:00 08/03/20 20:41 Chloride IVPB 400 mls/hr Q12HR INÉS Administration Heparin Sodium/Sodium Chloride 250 mls @ 9.997 mls/hr 08/02/20 08:30 08/03/20 17:09 25,000 unit/ Sodium Chloride IV 10.89 units/kg/hr .Q24H INÉS 9.997 mls/hr Administration Protocol 10.89 UNITS/KG/HR Ceftriaxone Sodium 1 gm/ 50 mls @ 100 mls/hr 08/03/20 10:30 08/03/20 10:52 Sodium Chloride IVPB 100 mls/hr Q24HR INÉS Administration Insulin Aspart 0 unit 07/30/20 16:00 08/03/20 20:10 Insulin Aspart (Novolog) 100 Unit/Ml Vial SQ Not Given Q4HR INÉS Protocol Magnesium Hydroxide 2,400 mg 07/28/20 09:00 Magnesium Hydroxide 2,400 Mg/10 Ml Cup PO BID PRN Constipation Metoclopramide HCl 10 mg 07/27/20 14:15 Metoclopramide 5 Mg/Ml 2 Ml Vial IVP Q4H PRN Nausea And Vomiting Metoprolol Tartrate 25 mg 08/03/20 09:00 08/03/20 20:41 Metoprolol Tartrate 25 Mg Tab PO 25 mg TID INÉS Administration Miscellaneous Information 1 each 07/27/20 14:15 Potassium Replacement Protocol 1 Each Misc MISCELLANE DAILY PRN Per Protocol Protocol Miscellaneous Information 1 each 07/27/20 14:15 Magnesium Replacement Protocol 1 Each Misc MISCELLANE DAILY PRN Per Protocol Protocol Miscellaneous Information 1 each 07/27/20 14:15 Phosphorus Replacement Protoco 1 Each Misc MISCELLANE DAILY PRN Per Protocol Protocol Ondansetron HCl 4 mg 07/27/20 14:15 Ondansetron 4 Mg/2 Ml Vial IVP Q6HR PRN Nausea And Vomiting Pantoprazole Sodium 40 mg 07/28/20 09:00 08/03/20 09:54 Pantoprazole 40 Mg/10 Ml Vial IVP 40 mg DAILY INÉS Administration Senna/Docusate Sodium 2 each 07/28/20 21:00 08/03/20 20:42 Sennosides-Docusate Sodium 1 Each Tab PO 2 each HS INÉS Administration Sertraline HCl 100 mg 07/21/20 09:00 08/03/20 10:50 Sertraline 100 Mg Tab PO 100 mg DAILY INÉS Administration Sodium Chloride 10 ml 07/27/20 21:00 08/03/20 20:42 Sodium Chloride 0.9% Flush 10 Ml Syringe IV 10 ml BID INÉS Administration Objective - Vital Signs Vital signs: Vital Signs Temp 98.2 F 08/03/20 16:00 Pulse 73 08/03/20 17:00 Resp 27 H 08/03/20 17:00 BP 98/50 08/03/20 17:00 Pulse Ox 91 L 08/03/20 17:00 Intake & Output 08/02/20 08/03/20 08/03/20 18:59 06:59 18:59 Intake Total 754.342 722.468 773.196 Output Total 1325 560 420 Balance -570.658 162.468 353.196 Weight 91.4 kg 91.4 kg Intake: IV 340 260 200 Lactated Ringers 1,000 ml 240 260 200 @ 20 mls/hr IV .Q24H IN[facility] Rx#:[id number] levETIRAcetam IV 500 mg 100 In Sodium Chloride 0.9% 100 ml @ 400 mls/hr IVPB Q12HR INÉS Rx#:[id number] Intake, IV Titration 44.342 206.468 231.196 Amount Heparin Sod,Pork in 0.45% 106.468 143.532 NaCl 25,000 unit In 0.45 % NaCl 1 250ml.bag @ 10. 89 UNITS/KG/HR 9.997 mls/ hr IV .Q24H IN[facility] Rx#: [id number] propofoL 500 mg In Empty 44.342 100 87.664 Bag 1 bag @ Titrate IV . Q0M IN[facility]S Rx#:[id number] Tube Feeding 280 196 252 Other 90 60 90 Output: Urine 1325 560 420 Other: Voiding Method Indwelling Catheter Indwelling Catheter Indwelling Catheter # Bowel Movements 1 ABP, PAP, CO, CI - Last Documented Arterial Blood Pressure 113/55 Pulmonary Artery Pressure 40/20 Cardiac Output 4.3 Cardiac Index 2.2 - Exam -GENERAL: The patient is intubated and sedated HEENT: Pupils are round and equally reacting to light. EOMI. No scleral icterus. No conjunctival pallor. Normocephalic, atraumatic. No pharyngeal erythema. No thyromegaly. CARDIOVASCULAR: S1 and S2 present. No murmurs, rubs, or gallops. PULMONARY: Chest is clear to auscultation, no wheezing or crackles. ABDOMEN: Soft, nontender, nondistended, normoactive bowel sounds. No palpable organomegaly. MUSCULOSKELETAL: No joint swelling or deformity. EXTREMITIES: No cyanosis, clubbing, or pedal edema. NEUROLOGICAL: Gross neurological examination did not reveal any focal deficits. SKIN: No rashes. no petechiae. - Labs CBC & Chem 7: 08/03/20 06:20 08/03/20 06:20 Labs: Abnormal Lab Results - Last 24 Hours (Table) 08/02/20 08/02/20 08/03/20 Range/Units 06:00 22:43 00:27 WBC (3.8-10.6) k/uL RBC (3.80-5.40) m/uL Hgb (11.4-16.0) gm/dL Hct (34.0-46.0) % Plt Count (150-450) k/uL APTT (22.0-30.0) sec ABG pH (7.35-7.45) ABG HCO3 (21-25) mmol/L ABG Total CO2 (19-24) mmol/L ABG O2 Saturation (94-97) % Carbon Dioxide (22-30) mmol/L BUN (7-17) mg/dL Glucose (74-99) mg/dL POC Glucose (mg/dL) 130 H 123 H (75-99) mg/dL Calcium (8.4-10.2) mg/dL AST (14-36) U/L ALT (4-34) U/L Alkaline Phosphatase (38-126) U/L Total Protein (6.3-8.2) g/dL Albumin (3.5-5.0) g/dL Procalcitonin 0.12 H (0.02-0.09) ng/mL 08/03/20 08/03/20 08/03/20 Range/Units 03:03 04:59 06:03 WBC (3.8-10.6) k/uL RBC (3.80-5.40) m/uL Hgb (11.4-16.0) gm/dL Hct (34.0-46.0) % Plt Count (150-450) k/uL APTT (22.0-30.0) sec ABG pH 7.49 H (7.35-7.45) ABG HCO3 31 H (21-25) mmol/L ABG Total CO2 32 H (19-24) mmol/L ABG O2 Saturation 98.1 H (94-97) % Carbon Dioxide (22-30) mmol/L BUN (7-17) mg/dL Glucose (74-99) mg/dL POC Glucose (mg/dL) 133 H (75-99) mg/dL Calcium (8.4-10.2) mg/dL AST (14-36) U/L ALT (4-34) U/L Alkaline Phosphatase (38-126) U/L Total Protein (6.3-8.2) g/dL Albumin (3.5-5.0) g/dL Procalcitonin 0.12 H (0.02-0.09) ng/mL 08/03/20 08/03/20 08/03/20 Range/Units 06:20 06:20 06:20 WBC 22.5 H (3.8-10.6) k/uL RBC 2.52 L (3.80-5.40) m/uL Hgb 7.7 L (11.4-16.0) gm/dL Hct 23.2 L (34.0-46.0) % Plt Count 476 H (150-450) k/uL APTT 33.2 H (22.0-30.0) sec ABG pH (7.35-7.45) ABG HCO3 (21-25) mmol/L ABG Total CO2 (19-24) mmol/L ABG O2 Saturation (94-97) % Carbon Dioxide 31 H (22-30) mmol/L BUN 27 H (7-17) mg/dL Glucose 137 H (74-99) mg/dL POC Glucose (mg/dL) (75-99) mg/dL Calcium 8.2 L (8.4-10.2) mg/dL AST 70 H (14-36) U/L ALT 80 H (4-34) U/L Alkaline Phosphatase 136 H (38-126) U/L Total Protein 5.1 L (6.3-8.2) g/dL Albumin 2.7 L (3.5-5.0) g/dL Procalcitonin (0.02-0.09) ng/mL 08/03/20 08/03/20 08/03/20 Range/Units 07:28 11:16 14:11 WBC (3.8-10.6) k/uL RBC (3.80-5.40) m/uL Hgb (11.4-16.0) gm/dL Hct (34.0-46.0) % Plt Count (150-450) k/uL APTT 63.5 H (22.0-30.0) sec ABG pH (7.35-7.45) ABG HCO3 (21-25) mmol/L ABG Total CO2 (19-24) mmol/L ABG O2 Saturation (94-97) % Carbon Dioxide (22-30) mmol/L BUN (7-17) mg/dL Glucose (74-99) mg/dL POC Glucose (mg/dL) 129 H 146 H (75-99) mg/dL Calcium (8.4-10.2) mg/dL AST (14-36) U/L ALT (4-34) U/L Alkaline Phosphatase (38-126) U/L Total Protein (6.3-8.2) g/dL Albumin (3.5-5.0) g/dL Procalcitonin (0.02-0.09) ng/mL 08/03/20 Range/Units 15:58 WBC (3.8-10.6) k/uL RBC (3.80-5.40) m/uL Hgb (11.4-16.0) gm/dL Hct (34.0-46.0) % Plt Count (150-450) k/uL APTT (22.0-30.0) sec ABG pH (7.35-7.45) ABG HCO3 (21-25) mmol/L ABG Total CO2 (19-24) mmol/L ABG O2 Saturation (94-97) % Carbon Dioxide (22-30) mmol/L BUN (7-17) mg/dL Glucose (74-99) mg/dL POC Glucose (mg/dL) 138 H (75-99) mg/dL Calcium (8.4-10.2) mg/dL AST (14-36) U/L ALT (4-34) U/L Alkaline Phosphatase (38-126) U/L Total Protein (6.3-8.2) g/dL Albumin (3.5-5.0) g/dL Procalcitonin (0.02-0.09) ng/mL Microbiology - Last 24 Hours (Table) 08/02/20 09:31 Blood Culture - Preliminary Blood No Growth after 24 hours 08/02/20 12:00 Gram Stain - Preliminary Sputum Sputum Culture - Preliminary Assessment and Plan Assessment: Triple vessel coronary artery disease, status post bypass surgery on 07/27 Acute bilateral cerebellar ischemic stroke as well as subacute evolving ischemic infarction involving the right MCA/TAZ watershed territory left caudate head ischemic infarction. Downey to be embolic./post surgical, with left hemiparesis Paroxysmal atrial fibrillation.in and out of rapid atrial fibrillation Acute hypoxic respiratory failure needing mechanical ventilation Possible ischemic encephalopathy with toxic encephalopathy Unstable angina secondary to above, currently patient with no chest pain Possible respiratory infection with sputum culture, gram-positive cocci Pulmonary emphysema with fibrotic changes in the right lower lung History of lung cancer status post surgical resection Hypertension Peripheral vascular disease Hyperlipidemia Osteoarthritis Plan: This is a pleasant 75 years old female with triple-vessel coronary artery disease. Cardiothoracic surgery on the case and workup is was done prior to surgical intervention, pulmonary evaluated the patient preoperatively and she is low risk. Patient was on heparin drip prior to surgery but with cardiology were following case closely Continue with aspirin, Plavix, statin and metoprolol, continue with Keppra per Neurologist Patient is going for PEG tube placement and tracheostomy on 08/15 per re commendation of pulmonary and surgical teams Continue with anticoagulation per Control Board Operator recommendation Several consultants of the case including neurologist, electronic imaging system operator, pulmonary/critical care team decides to the cardiothoracic surgical and Gen. surgical teams and she will follow the recommendations Labs and medication were reviewed.. Continue same treatment. Continue with symptomatic treatment. Resume home medication. Monitor lytes and vitals. DVT and GI prophylaxis. Further recommendations as per clinical course of the patient DVT prophylaxis: heparin GI Prophylaxis: Ppi Prognosis is guarded
[2020-08-03 23:26] LABS: Glucose,Whole Blood 110 mg/dL (75-99)
[2020-08-04] MEDS: INSULIN ASPART (NovoLOG) 100 UNIT/ML VIAL SQ SCH ×6 (00:03→20:42)
[2020-08-04 03:54] LABS: Glucose,Whole Blood 124 mg/dL (75-99)
[2020-08-04] MEDS: LACTATED RINGERS 1,000 ML IV SCH (04:04)
[2020-08-04 04:27] LABS: HCT 21.4 % (34.0-46.0); Hypochromasia Slight; MCH 29.6 pg (25.0-35.0); MCHC 32.2 g/dL (31.0-37.0); MCV 92.1 fL (80.0-100.0); Mean Platelet Volume 7.5; Platelet Count 508 k/uL (150-450); RBC 2.32 m/uL (3.80-5.40); RDW 14.7 % (11.5-15.5); WBC 19.4 k/uL (3.8-10.6)
[2020-08-04 04:29] LABS: ALT 106 U/L (4-34); AST 117 U/L (14-36); African American GFR (CKD) >90 (>60 ml/min/1.73 sqM); Albumin 2.7 g/dL (3.5-5.0); Alkaline Phosphatase 146 U/L (38-126); Anion Gap 4 mmol/L; Blood Urea Nitrogen 29 mg/dL (7-17); Calcium 8.2 mg/dL (8.4-10.2); Carbon Dioxide 31 mmol/L (22-30); Chloride 103 mmol/L (98-107); Glucose 109 mg/dL (74-99); Non-African American GFR(CKD) >90 (>60 ml/min/1.73 sqM); Potassium 3.7 mmol/L (3.5-5.1); Sodium 138 mmol/L (137-145); Total Bilirubin 0.7 mg/dL (0.2-1.3); Total Protein 5.1 g/dL (6.3-8.2)
[2020-08-04 04:31] LABS: HGB 6.9 gm/dL (11.4-16.0)
[2020-08-04 05:03] LABS: ABG Base Excess 7.5 mmol/L; ABG HCO3 30 mmol/L (21-25); ABG Oxygen Saturation 97.1 % (94-97); ABG PCO2 38 mmHg (35-45); ABG PH 7.51 (7.35-7.45); ABG PO2 81 mmHg (83-108); ABG TCO2 32 mmol/L (19-24); Allen Test Performed? Yes
[2020-08-04] MEDS: HEPARIN SOD,PORK IN 0.45% NACL 25,000 UNIT in 0.45% NACL 1 250ML.BAG IV SCH ×2 (06:01→13:43)
--- NOTE | 2020-08-04 06:51 | XR ---
EXAMINATION TYPE: XR chest 1V portable DATE OF EXAM: 08/04/2020 CLINICAL HISTORY: Difficulty breathing progress study. TECHNIQUE: Single AP portable semiupright view of the chest is obtained. COMPARISON: Chest x-ray from one day earlier and older studies. FINDINGS: Stable left-sided PICC line. Stable endotracheal and weighted feeding tubes. Lower thoraci c spinal stimulator redemonstrated. Overlying sternal wires and mediastinal clips along with left atr ial appendage clip are all redemonstrated. Persistent cardiomegaly with bibasilar opacities and Centr al vascular congestion. IMPRESSION: Cardiomegaly with mild central vascular congestion and left greater than right bibasilar acute infiltrate and/or atelectasis are all redemonstrated. Suspect small left pleural effusion. No s ignificant change from one day earlier.
[2020-08-04] MEDS ORDERED: POTASSIUM BICARBONATE/CIT AC 20 MEQ TABLET.EFF NG-TUBE SCH (07:00)
[2020-08-04 08:09] LABS: Glucose,Whole Blood 129 mg/dL (75-99)
[2020-08-04] MEDS ORDERED: acetaZOLAMIDE 250 MG TAB PO STA (08:16)
[2020-08-04] MEDS: bisacodyL 10 MG SUPP RECTAL PRN (08:47)
[2020-08-04] MEDS: ASPIRIN 81 MG PO SCH (08:47)
[2020-08-04] MEDS: PANTOPRAZOLE 40 MG/10 ML VIAL IVP SCH (08:47)
[2020-08-04] MEDS: CHLORHEXIDINE GLUCONATE 15 ML CUP MUCOUS MEM SCH ×2 (08:47→20:46)
[2020-08-04] MEDS: AMIODARONE 200 MG TAB PO SCH ×2 (08:47→20:46)
[2020-08-04] MEDS: METOPROLOL TARTRATE 25 MG TAB PO SCH ×3 (08:48→20:53)
[2020-08-04] MEDS: levETIRAcetam IV 500 MG in SODIUM CHLORIDE 0.9% 100 ML IVPB SCH ×2 (08:48→20:47)
[2020-08-04] MEDS: SERTRALINE 100 MG TAB PO SCH (08:49)
--- NOTE | 2020-08-04 08:50 | P.PN ---
Subjective Progress Note Date: 08/04/20 Principal diagnosis: Coronary artery disease status post coronary artery bypass grafting Patient was reevaluated today on 07/28/2020, remains intubated and mechanically ventilated. Patient is now on assist control mode of mechanical ventilation with a rate of 16, volume is 450 FiO2 is 50% and PEEP of 5. Unfortunately the patient was noted to have poor movement of her left upper and left lower extremity last night, CT of the head last night showed acute/subacute area of infarction in the right cerebellum along with probable area of chronic infarction in the right parietal region I evaluated the patient this morning, seems to be extremely restless and agitated, seems to be neglecting the left side, and both eyes are deviated to the right and upwards. Patient seems to be moving her right side quite well, however the left side seems to be relatively weak although she was squeezing my hand with her left hand. And minimal movement noted in the left lower extremity. Patient is on Precedex, and seems to be agitated in spite of Precedex. Her ventilatory settings are reasonable, ABG is reasonable, patient is basically extubate overall, however her mental status is a bit concerning specially with her extreme agitation, keeps pulling and shaking the railing of the bed on the right side. Patient was given Ativan, and I have recommended increasing Precedex. She is not truly quite ready to be extubated today. Again my major concern is her mental status. And she is yet to be seen by neurology on consultation. Blood pressure is quite high, 160 systolic, norepinephrine was discontinued during my evaluation. She was on a very minimal dose of 0.1 mcg/kg/m of norepinephrine patient was also on milrinone. CBC is relatively normal hemoglobin is 7.4. ABG this morning showed a pO2 of 92 pCO2 of 38 pH of 7.45. This was on 50% FiO2. Electrolytes and renal profile are normal. Chest x-ray showed mostly postoperative changes of CABG 07/29/2020, I'm seeing the patient for a follow-up in the intensive care unit. This morning the patient is heavily sedated with propofol and she is calm and comfortable. Unfortunately with that, neurologic examination is not possible. I would suggest gradually cutting down the propofol and assess her neuro status and if needed utilize Precedex as an alternative sedative drip. Meanwhile, the patient remains essentially with enema to severe with a low dose of norepinephrine infusion running at 0.06 mcg/kg per minute. She has an adequate urine output. Cardiac rhythm is sinus. She has a left pleural and mediastinal chest tubes and output from those are in order of minimal, less than 100 over the past 24 hours. The chest x-ray showing cardiomegaly. There is some kyphoscoliosis of the chest. Chest tubes are in good location. ET tube is in good location. Atelectatic changes and some mild four-vessel congestion. Meanwhile, the patient's vent settings include an assist-control mode at the rate of 16 with a tidal volume of 450 and FiO2 of 40% with a PEEP of 5. The blood gases from this morning showed a pH of 7.49 with a pCO2 of 36 and pO2 of 82. On today's blood work, the patient's hemoglobin is down to 6.9 from 7.4. Platelets is at 210. 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 Intracranial cerebral arteries were essentially patent with nothing significantly stenotic. During our limited neurologic evaluation, the patient did not do mistreat any withdrawal with to painful stimulation. No Babinski. No clonus. Nevertheless, I was told by the nursing staff that she was able to move her right side yesterday and her left side once off sedation. Pupils are equal and reactive to light and order of 3 mm. No preferential gaze on today's evaluation. A sedation holiday will be given. She is on enteral nutrition. No other drips. No seizure activity. Neurologist on the case. She is on aspirin, Plavix, and she also on metoprolol 12.5 mg by mouth twice a day. She is also on high-dose statins. Progress note dated 05/29/2021. Currently, this is a 75-year-old female who was admitted to the hospital on July 21. She went to the operating room, on July 27 for a three-vessel bypass grafting with Dr. Alan. The patient has never been extubated. Unfortunately, she developed a right cerebellar CVA. She remains on the mechanical ventilator. She is currently on the volume assist control mode, rate is 16, tidal volume 400, FiO2 60%, and PEEP of 5. The blood gases show a PaO2 of 99, a PaCO2 of 40, and a pH of 7.44. She also remains on lactated Ringer's at 20 mL an hour, propofol was turned off for the spontaneous breathing trial, and she's been weaned off of norepinephrine. She is receiving vital AF, at a rate of 30 mL an hour, with a goal of 57 mL an hour. We placed the patient on pressure support of 5 CPAP of 5, and stayed in the room to observe her response to the spontaneous breathing trial. Unfortunately, the patient's respiratory rate went up above 40, and a tidal volumes dropped down to 200 range. Her minute volume was quite high, and the patient was placed back on the volume assist control mode. After the failed spontaneous breathing trial, the patient 's tidal volume was dropped down to 350, her FiO2 was decreased to 50%, and the peak level was increased from 5 to 8 cm water. White count is 12.8, hemoglobin 8, hematocrit 23.5, and platelet count 210,000. Blood gases have been reviewed. Sodium 139, potassium 3.6, chlorides 107, CO2 27, anion gap 5, BUN 33, and creatinine 0.64. Chest x-ray shows a right lower lobe infiltrate and my opinion. Progress note dated 07/31/2020 75-year-old female, that was admitted to the hospital on July 21. She went to the operating room on July 27 for a three-vessel bypass grafting with Dr. Alan. The patient has never been extubated and unfortunately, she developed a right cerebellar CVA. She currently remains on the ventilator, on the volume assist control modality. She is on a rate of 16, tidal volume 350, FiO2 50%, and a PEEP of 8. Arterial blood gases show a PaO2 of 76, PaCO2 44, and a pH of 7.4. The patient is getting lactated Ringer's at KVO, amiodarone at 0.5 mg/m, and propofol at 30 mcg/kg/m. In addition, the patient's on vital AF 1.2 at 57, with a goal of 57 mL an hour. Today, we attempted a daily interruption of sedation and a spontaneous breathing trial. As noted yesterday, she failed her trial. Today, we placed her on PSV 8, and CPAP of 5. Currently, she is doing a bit better today. A Dobbhoff tube was placed yesterday. Unfortunately, she appears to be weaker on the right side. The left side she does not move at all. In the end, she may end up with the tracheostomy tube and a ET tube. Yesterday, after the spontaneous breathing trial, the patient unfortunately developed atrial fibrillation with RVR, and that is why the patient is on amiodarone. The patient is seen today 08/01/2020 in follow-up in the intensive care unit. She remains intubated on the mechanical ventilator. Current settings assist- control of with a rate of 16, tidal volume 350, FiO2 50% and a PEEP of 8. Morning blood gases reveal a P O2 of 77, pCO2 of 40, pH 7.47. She remains sedated on propofol at 30 mcg/kg/m. Lactated Ringer's at KVO. She developed atrial fibrillation with rapid ventricular response. She is currently on amiodarone at 0.5 mg/m. She is being nourished with vital HP at 20 ML's per hour which is goal. She was given daily interruption of sedation. She develops A. fib RVR during a spontaneous breathing trials yesterday. We'll trial again today. His chest x-ray continues to show stable diffuse pleuroparenchymal changes. Endotracheal tube and gastric tubes are secured in place. Left-sided chest tube has been removed. PICC line in place. She is status post 1 unit of packed red blood cells this admission. Current hemoglobin 7.1. White count 13.6. Sodium 136. Potassium 3.5. Creatinine 0.55. AST 107. ALT 105. Albumin 2.7. She is continued on DuoNeb inhalations. Heparin for DVT prophylaxis. The patient is seen today 08/02/2020 in follow-up in the intensive care unit. She remains intubated and sedated. Currently on mechanical ventilator assist control mode at a rate of 16. Tidal volume 350. FiO2 40%. PEEP of 8. Morning blood gases reveal a P O2 of 100, pCO2 38, pH 7.49. This is on 50% FiO2. She is currently sedated on propofol at 35 mcg/kg/m. She remains on heparin drip. 0.9 normal saline at 20 ML's per hour. She is being nourished with vital HP 20 ML's per hour which is goal. She was given daily interruption of sedation yesterday she became extremely tachypneic with a respiratory rate in the 40s, not following any commands. Placed back on assist control. Trial again today. She has been having issues with atrial fibrillation. Transitioned to oral amiodarone. Chest x-ray reveals left-sided PICC line in place. Endotracheal and gastric tubes are stable. Vertebral column stimulator in place. There are bilateral infiltrates/pleural effusions. Diffusion interstitial pattern. No pneumothorax. She has received 1 unit of packed red blood cells this admission. Current hemoglobin 7.6. Platelets 387. White count 20.6. Sodium 137. Potassium 3.9. Creatinine 0.50. AST 67. ALT 83. Albumin 2.8. The patient is seen today 08/03/2020 in follow-up in the intensive care unit. Postoperative day #7. She remains intubated and sedated on the mechanical ventilator. Current mode assist control with a rate of 16, tidal been 350, FiO2 40% and a PEEP of 8. Morning blood gases reveal pO2 of 90, pCO2 40, pH 7.49. Currently on propofol at 20 mcg/kg/m. Remains on heparin drip at weight-based p rotocol. Lactated Ringer's at 20 ML's per hour. She is being nourished with vital HP at 28 ML's per hour which is goal. Free water flushes at 30 MLS every 4 hours. Sputum culture pending. White count 20.5. Hemoglobin 7.7. Sodium 139. Potassium 3.9. Creatinine 0.53. AST 70, ALT 80. She remains on DuoNeb inhalations. Chest x-ray reveals good placement of the endotracheal tube and Dobbhoff tubes. Left sided PICC line in place. Bibasilar densities persist. Perihilar increase attenuation noted within the lungs, left hemidiaphragm remains obscured greater than right. Currently afebrile. Hemodynamically stable. Currently in atrial fibrillation with controlled ventricular rate. She responds to painful stimuli on the right. She did sustain an acute bilateral cerebellar ischemic stroke right greater than left as well as a subacute evolving ischemic infarction including the right MCA/TAZ watershed territory with left-sided hemiplegia. She has not tolerated daily interruption of sedation due to her becoming tachypneic, tachycardic and hypertensive. The patient is seen today 08/04/2020 and follow-up in the intensive care unit. Postoperative day #8. She remains intubated and sedated on mechanical ventilator. Current settings assist-control at a rate of 16, tidal volume 350, FiO2 40%, PEEP of 5. Blood gases reveal a P O2 of 81, pCO2 38, pH 7.51. She remains on propofol at 25 mcg/kg/m. Heparin per weight base protocol. Lactated Ringer's at 20 ML's per hour. She is being nourished with vital HP at 20 mL per hour which is goal. She is spontaneously moving her right arm and right leg. Not following any simple commands. She is status post 1 unit of packed red blood cells this admission. Current hemoglobin 6.9. White count 19.4. Sodium 138. Potassium 3.7. Creatinine 0.71. AST 117, ALT 106. Albumin 2.7. She was given a interruption of sedation and spontaneous breathing trial yesterday. She did develop atrial fibrillation with rapid ventricular response with hypertension, tachypnea. Placed back on mechanical ventilator. We'll trial again today. Plan is for possible tracheostomy and PEG tube placements on 08/06/2020. Chest x-ray continues to show cardiomegaly with mild central venous congestion and left greater than right bibasilar acute infiltrates. Small left pleural effusion. No significant change compared to previous. Sputum culture reveals no growth. Blood culture reveals no growth. She remains on bronchodilators, ceftriaxone. Objective - Vital Signs Vital signs: Vital Signs Temp 97.7 F 08/04/20 08:00 Pulse 72 08/04/20 08:00 Resp 26 H 08/04/20 08:00 BP 117/53 08/04/20 08:00 Pulse Ox 97 08/04/20 08:00 Intake & Output 08/03/20 08/04/20 08/04/20 18:59 06:59 18:59 Intake Total 871.196 866.628 141.733 Output Total 460 485 90 Balance 411.196 381.628 51.733 Weight 91.4 kg 89.9 kg Intake: IV 220 240 40 Lactated Ringers 1,000 ml 220 240 40 @ 20 mls/hr IV .Q24H [facility] Rx#:[id number] Intake, IV Titration 281.196 228.628 15.733 Amount Heparin Sod,Pork in 0.45% 143.532 128.628 NaCl 25,000 unit In 0.45 % NaCl 1 250ml.bag @ 10. 89 UNITS/KG/HR 9.997 mls/ hr IV .Q24H [facility] Rx#: [id number] propofoL 500 mg In Empty 137.664 100 15.733 Bag 1 bag @ Titrate IV . Q0M [facility] Rx#:[id number] Tube Feeding 280 308 56 Other 90 90 30 Output: Urine 460 485 90 Other: Voiding Method Indwelling Catheter Indwelling Catheter ABP, PAP, CO, CI - Last Documented Arterial Blood Pressure 113/55 Pulmonary Artery Pressure 40/20 Cardiac Output 4.3 Cardiac Index 2.2 - Exam Intubated, sedated 75-year-old female patient. Poorly responsive, is sedated, and on mechanical ventilation. For the spontaneous breathing trial, the patient was off sedation, is still minimally responsive. HEENT examination is grossly unremarkable. Mucous membranes are moist. There is a orally placed endotracheal tube, and nasogastric tube. Neck supple. Full range of motion. No adenopathy thyromegaly or neck vein distention. Cardiovascular examination reveals an irregular rhythm and rate. S1-S2 normal. No S3 or S4. No discernible murmur noted. Heart sounds are distant. Heart rate is 124 bpm. Lungs reveal bilateral rhonchi. No wheezes or crackles. Breath sounds equal bilaterally. Abdomen soft bowel sounds are heard. No masses or tenderness. Extremities are intact. No cyanosis clubbing or edema. Skin is without rash or lesion. Neurologic examination reveals a poorly responsive female, who does not move her left side. - Labs CBC & Chem 7: 08/04/20 03:25 08/04/20 03:25 Labs: Abnormal Lab Results - Last 24 Hours (Table) 08/03/20 08/03/20 08/03/20 Range/Units 03:03 11:16 14:11 WBC (3.8-10.6) k/uL RBC (3.80-5.40) m/uL Hgb (11.4-16.0) gm/dL Hct (34.0-46.0) % Plt Count (150-450) k/uL APTT 63.5 H (22.0-30.0) sec ABG pH (7.35-7.45) ABG pO2 (83-108) mmHg ABG HCO3 (21-25) mmol/L ABG Total CO2 (19-24) mmol/L ABG O2 Saturation (94-97) % Carbon Dioxide (22-30) mmol/L BUN (7-17) mg/dL Glucose (74-99) mg/dL POC Glucose (mg/dL) 146 H (75-99) mg/dL Calcium (8.4-10.2) mg/dL AST (14-36) U/L ALT (4-34) U/L Alkaline Phosphatase (38-126) U/L Total Protein (6.3-8.2) g/dL Albumin (3.5-5.0) g/dL Procalcitonin 0.12 H (0.02-0.09) ng/mL 08/03/20 08/03/20 08/03/20 Range/Units 15:58 20:08 23:24 WBC (3.8-10.6) k/uL RBC (3.80-5.40) m/uL Hgb (11.4-16.0) gm/dL Hct (34.0-46.0) % Plt Count (150-450) k/uL APTT (22.0-30.0) sec ABG pH (7.35-7.45) ABG pO2 (83-108) mmHg ABG HCO3 (21-25) mmol/L ABG Total CO2 (19-24) mmol/L ABG O2 Saturation (94-97) % Carbon Dioxide (22-30) mmol/L BUN (7-17) mg/dL Glucose (74-99) mg/dL POC Glucose (mg/dL) 138 H 101 H 110 H (75-99) mg/dL Calcium (8.4-10.2) mg/dL AST (14-36) U/L ALT (4-34) U/L Alkaline Phosphatase (38-126) U/L Total Protein (6.3-8.2) g/dL Albumin (3.5-5.0) g/dL Procalcitonin (0.02-0.09) ng/mL 08/04/20 08/04/20 08/04/20 Range/Units 03:25 03:25 03:25 WBC 19.4 H (3.8-10.6) k/uL RBC 2.32 L (3.80-5.40) m/uL Hgb 6.9 L* (11.4-16.0) gm/dL Hct 21.4 L (34.0-46.0) % Plt Count 508 H (150-450) k/uL APTT 57.0 H (22.0-30.0) sec ABG pH (7.35-7.45) ABG pO2 (83-108) mmHg ABG HCO3 (21-25) mmol/L ABG Total CO2 (19-24) mmol/L ABG O2 Saturation (94-97) % Carbon Dioxide 31 H (22-30) mmol/L BUN 29 H (7-17) mg/dL Glucose 109 H (74-99) mg/dL POC Glucose (mg/dL) (75-99) mg/dL Calcium 8.2 L (8.4-10.2) mg/dL AST 117 H (14-36) U/L ALT 106 H (4-34) U/L Alkaline Phosphatase 146 H (38-126) U/L Total Protein 5.1 L (6.3-8.2) g/dL Albumin 2.7 L (3.5-5.0) g/dL Procalcitonin (0.02-0.09) ng/mL 08/04/20 08/04/20 08/04/20 Range/Units 03:52 04:57 08:07 WBC (3.8-10.6) k/uL RBC (3.80-5.40) m/uL Hgb (11.4-16.0) gm/dL Hct (34.0-46.0) % Plt Count (150-450) k/uL APTT (22.0-30.0) sec ABG pH 7.51 H (7.35-7.45) ABG pO2 81 L (83-108) mmHg ABG HCO3 30 H (21-25) mmol/L ABG Total CO2 32 H (19-24) mmol/L ABG O2 Saturation 97.1 H (94-97) % Carbon Dioxide (22-30) mmol/L BUN (7-17) mg/dL Glucose (74-99) mg/dL POC Glucose (mg/dL) 124 H 129 H (75-99) mg/dL Calcium (8.4-10.2) mg/dL AST (14-36) U/L ALT (4-34) U/L Alkaline Phosphatase (38-126) U/L Total Protein (6.3-8.2) g/dL Albumin (3.5-5.0) g/dL Procalcitonin (0.02-0.09) ng/mL Microbiology - Last 24 Hours (Table) 08/02/20 12:00 Gram Stain - Final Sputum Sputum Culture - Final 08/02/20 09:31 Blood Culture - Preliminary Blood No Growth after 24 hours Assessment and Plan Assessment: Postoperative day #8, status post three-vessel bypass grafting. Now chronic hypoxemic respiratory failure and remains on the ventilator because of her recent ischemic CVA. Postoperative acute/subacute right cerebellar infarct. Left-sided hemiparesis. Leukocytosis of unclear etiology Remote history of non-small cell lung cancer, with previous lobectomy. Prior history of tobacco use. Mild COPD based on PFTs. Family history of premature coronary artery disease. History of hypertension. Peripheral vascular occlusive disease. Degenerative joint disease. Hyperlipidemia. Chronic insomnia. History of postoperative anemia. Plan: The patient was seen and evaluated by Dr. Luong Chest x-ray, ABGs and labs reviewed We will give her another daily interruption of sedation Trial pressure support of 8 CPAP of 5 with weaning parameters May require tracheostomy tube in PEG tube placement Sputum cultures revealed no growth. Sputum culture revealed no growth We'll continue ceftriaxone for 3 days total. We will continue to follow and make further recommendations based on her clinical status Critical care time 35 minutes I, the cosigning physician, performed a history & physical examination of the patient. Lungs sounds with bilateral scattered rhonchi. Maintaining good O2 saturations in the 90s on 40% FiO2 and PEEP of 5 via the mechanical ventilator. I discussed the assessment and plan of care with my nurse practitioner, Sierra donaldson. I attest to the above note as dictated by her.
--- NOTE | 2020-08-04 08:53 | PN ---
PROGRESS NOTE Mrs. Arguello is a 75-year-old female with a history of coronary artery disease, who underwent coronary artery bypass grafting. Postoperatively, at the time of weaning her from the vent, she was noted to have left-sided weakness. She remains intubated. She is on no vasopressor. She had episode of paroxysmal atrial fibrillation and anticoagulation is being initiated. She was noted to have an acute bilateral cerebral ischemic event. She continues to be at this time on amiodarone 400 mg twice a day, aspirin once a day, Lipitor 80 mg daily, IV heparin, metoprolol tartrate 25 mg 3 times a day. PHYSICAL EXAMINATION: VITAL SIGNS: Blood pressure 117/50 with a heart in the 70s. LUNGS: Clear to auscultation anteriorly. HEART: S1, S2. No S3. No rub. ABDOMEN: Soft, positive bowel sounds. No organomegaly. EXTREMITIES: No edema. LAB DATA: Revealed hemoglobin of 6.9, white blood cell of 19.4, which is improved compared to yesterday. BUN and creatinine 29 and 0.57. Potassium is 3.7. Her chest x-ray shows mild congestion. IMPRESSION: 1. Status post coronary artery bypass grafting. 2. Evidence of acute cerebrovascular accident postoperatively. 3. Respiratory failure. 4. Hyperlipidemia. 5. Paroxysmal atrial fibrillation. RECOMMENDATION: From the cardiac standpoint, will continue IV heparin in case the tracheostomy or PEG tube placement is needed. Otherwise once that is done, then I will proceed with switch to oral anticoagulation. Hopefully, we can start to wean her soon. Depending on her progress, further recommendation will be made. The prognosis remains guarded. MMODL / IJN: [id number] /
[2020-08-04] MEDS: IPRATROPIUM-ALBUTEROL 3 ML NEB INHALATION SCH ×4 (09:24→20:03)
--- NOTE | 2020-08-04 11:18 | P.PN ---
Subjective Progress Note Date: 08/04/20 Principal diagnosis: Triple-vessel coronary artery disease, unstable angina. Past medical history significant for coronary artery disease with previous myocardial infarction and stent placement, peripheral arterial disease with lower extremity stenting, lung cancer status post right lower lobectomy in 2011, hypertension, hyperlipidemia, COPD with previous tobacco dependence, anxiety/depression, family history of premature coronary artery disease with 2 of her sons having had coronary artery bypass grafting surgery, significant plaque formation more than 75% stenosis at the origins of both internal and external carotid arteries bilaterally on CTA. POD #8 coronary artery bypass grafting 3 vessels, left internal mammary artery to the left anterior descending artery, a reverse greater saphenous vein graft to the obtuse marginal artery, a reverse greater saphenous vein graft to the posterior descending artery, endoscopic harvesting of the right greater saphenous vein, ligation of the left atrial appendage using a 35 mm AtriClip, epi-aortic ultrasound and intraoperative transesophageal echocardiogram. Postoperative acute blood loss anemia, expected given hemodilution and cardiopulmonary bypass pump. Postoperative right acute/subacute cerebellar infarct on brain CT, unexpected, although possible complication of any open heart surgery, especially given patient's known history of significant arterial disease. Prolonged mechanical ventilation, unexpected, secondary to acute stroke. Paroxysmal atrial fibrillation, known common occurrence after open heart candida allie. The patient was seen in follow-up today 08/04/2020 under bedside in intensive care unit. Currently she is sedated on propofol drip at 25 mcg/kg/m, remains intubated with mechanical ventilator support, current mechanical ventilator settings are as follows, assist control 16, TV 350, FiO2 40% and PEEP of 5. Oxygen saturation on current mechanical ventilator settings are 97%. Bedside telemetry currently showing normal sinus rhythm heart rate 73 bpm. She remains on metoprolol tartrate and amiodarone for atrial fibrillation prophylaxis. She remains hemodynamically stable and is currently on no inotropic or pressors support. The patient continues to be unable to follow any verbal commands, although does respond to noxious stimuli to her bilateral upper and lower extremities. Pupils are equal and reactive although the patient is not tracking. Dobbhoff tube remains in place with vital high-protein infusing at goal rate of 28 mL per hour. T-max temperature in the last 24 hours 100.4F, remains on Rocephin for empiric antibiotic coverage. Objective - Vital Signs Vital signs: Vital Signs Temp 97.7 F 08/04/20 08:00 Pulse 59 L 08/04/20 10:00 Resp 20 08/04/20 10:00 BP 119/56 08/04/20 10:00 Pulse Ox 96 08/04/20 10:00 Intake & Output 08/03/20 08/04/20 08/04/20 18:59 06:59 18:59 Intake Total 871.196 866.628 419.733 Output Total 460 485 135 Balance 411.196 381.628 284.733 Weight 91.4 kg 89.9 kg Intake: IV 220 240 130 Lactated Ringers 1,000 ml 220 240 80 @ 20 mls/hr IV .Q24H [facility] Rx#:[id number] cefTRIAXone 1 gm In 50 Sodium Chloride 0.9% 50 ml @ 100 mls/hr IVPB Q24HR [facility] Rx#:[id number] Intake, IV Titration 281.196 228.628 115.733 Amount Heparin Sod,Pork in 0.45% 143.532 128.628 NaCl 25,000 unit In 0.45 % NaCl 1 250ml.bag @ 10. 89 UNITS/KG/HR 9.997 mls/ hr IV .Q24H [facility] Rx#: [id number] levETIRAcetam IV 500 mg 100 In Sodium Chloride 0.9% 100 ml @ 400 mls/hr IVPB Q12HR [facility] Rx#:[id number] propofoL 500 mg In Empty 137.664 100 15.733 Bag 1 bag @ Titrate IV . Q0M [facility] Rx#:[id number] Tube Feeding 280 308 84 Other 90 90 90 Output: Urine 460 485 135 Other: Voiding Method Indwelling Catheter Indwelling Catheter Indwelling Catheter ABP, PAP, CO, CI - Last Documented Arterial Blood Pressure 113/55 Pulmonary Artery Pressure 40/20 Cardiac Output 4.3 Cardiac Index 2.2 - Constitutional Constitutional Comment(s): The patient remains intubated with mechanical ventilator support. Remains sedated on propofol drip at 25 mcg/kg/m. Responding to noxious stimuli to her bilateral upper and lower extremities. Not following any verbal commands. General appearance: Present: no acute distress, obese - EENT Eyes: Present: PERRLA, normal appearance. Absent: scleral icterus - Neck Details: Neck is supple, no JVD. - Respiratory Details: Lung sounds with few scattered rhonchi throughout, diminished bilateral bases. Respirations are symmetrical and nonlabored with mechanical ventilator support. Current mechanical ventilator settings are as follows, assist control 16, TV 350, FiO2 40% and PEEP of 5. Oxygen saturations 97% on current mechanical ventilator settings. - Cardiovascular Details: Regular rhythm and rate. S1 and S2 present, negative for S3, gallop or murmur. Sternum is stable. Heart hugger is in place. Knee-high DEBI hose and sequential compression devices in place to her bilateral lower extremities. Generalized +1 edema. Left arm PICC line is in place and functioning. - Gastrointestinal Gastrointestinal Comment(s): Abdomen is soft, nontender and nondistended. Hypoactive bowel sounds present in all 4 abdominal quadrants. No guarding or rigidity. No organomegaly appreciated. Dobbhoff tube in place with vital high-protein infusing at goal rate of 28 mL/h. Last bowel movement 08/02/2020. - Genitourinary Genitourinary Comment(s): Da Silva catheter for accurate I&O. Draining clear nydia urine. 370 mL output in the last 8 hours. - Neurologic Neurologic Comment(s): No movement to her left upper and lower extremities. Occasional movement to her right upper and lower extremities. Not responding to verbal stimuli. Response to noxious stimuli to her bilateral upper and lower extremities. - Musculoskeletal Musculoskeletal: Present: left sided weakness - Psychiatric Psychiatric Comment(s): Unable to accurately assess at this time as the patient is sedated on propofol drip at 25 mcg/kg/m. - Allied health notes Allied health notes reviewed: nursing - Labs CBC & Chem 7: 08/04/20 03:25 08/04/20 03:25 Labs: Abnormal Lab Results - Last 24 Hours (Table) 08/03/20 08/03/20 08/03/20 Range/Units 03:03 11:16 14:11 WBC (3.8-10.6) k/uL RBC (3.80-5.40) m/uL Hgb (11.4-16.0) gm/dL Hct (34.0-46.0) % Plt Count (150-450) k/uL APTT 63.5 H (22.0-30.0) sec ABG pH (7.35-7.45) ABG pO2 (83-108) mmHg ABG HCO3 (21-25) mmol/L ABG Total CO2 (19-24) mmol/L ABG O2 Saturation (94-97) % Carbon Dioxide (22-30) mmol/L BUN (7-17) mg/dL Glucose (74-99) mg/dL POC Glucose (mg/dL) 146 H (75-99) mg/dL Calcium (8.4-10.2) mg/dL AST (14-36) U/L ALT (4-34) U/L Alkaline Phosphatase (38-126) U/L Total Protein (6.3-8.2) g/dL Albumin (3.5-5.0) g/dL Procalcitonin 0.12 H (0.02-0.09) ng/mL 08/03/20 08/03/20 08/03/20 Range/Units 15:58 20:08 23:24 WBC (3.8-10.6) k/uL RBC (3.80-5.40) m/uL Hgb (11.4-16.0) gm/dL Hct (34.0-46.0) % Plt Count (150-450) k/uL APTT (22.0-30.0) sec ABG pH (7.35-7.45) ABG pO2 (83-108) mmHg ABG HCO3 (21-25) mmol/L ABG Total CO2 (19-24) mmol/L ABG O2 Saturation (94-97) % Carbon Dioxide (22-30) mmol/L BUN (7-17) mg/dL Glucose (74-99) mg/dL POC Glucose (mg/dL) 138 H 101 H 110 H (75-99) mg/dL Calcium (8.4-10.2) mg/dL AST (14-36) U/L ALT (4-34) U/L Alkaline Phosphatase (38-126) U/L Total Protein (6.3-8.2) g/dL Albumin (3.5-5.0) g/dL Procalcitonin (0.02-0.09) ng/mL 08/04/20 08/04/20 08/04/20 Range/Units 03:25 03:25 03:25 WBC 19.4 H (3.8-10.6) k/uL RBC 2.32 L (3.80-5.40) m/uL Hgb 6.9 L* (11.4-16.0) gm/dL Hct 21.4 L (34.0-46.0) % Plt Count 508 H (150-450) k/uL APTT 57.0 H (22.0-30.0) sec ABG pH (7.35-7.45) ABG pO2 (83-108) mmHg ABG HCO3 (21-25) mmol/L ABG Total CO2 (19-24) mmol/L ABG O2 Saturation (94-97) % Carbon Dioxide 31 H (22-30) mmol/L BUN 29 H (7-17) mg/dL Glucose 109 H (74-99) mg/dL POC Glucose (mg/dL) (75-99) mg/dL Calcium 8.2 L (8.4-10.2) mg/dL AST 117 H (14-36) U/L ALT 106 H (4-34) U/L Alkaline Phosphatase 146 H (38-126) U/L Total Protein 5.1 L (6.3-8.2) g/dL Albumin 2.7 L (3.5-5.0) g/dL Procalcitonin (0.02-0.09) ng/mL 08/04/20 08/04/20 08/04/20 Range/Units 03:52 04:57 08:07 WBC (3.8-10.6) k/uL RBC (3.80-5.40) m/uL Hgb (11.4-16.0) gm/dL Hct (34.0-46.0) % Plt Count (150-450) k/uL APTT (22.0-30.0) sec ABG pH 7.51 H (7.35-7.45) ABG pO2 81 L (83-108) mmHg ABG HCO3 30 H (21-25) mmol/L ABG Total CO2 32 H (19-24) mmol/L ABG O2 Saturation 97.1 H (94-97) % Carbon Dioxide (22-30) mmol/L BUN (7-17) mg/dL Glucose (74-99) mg/dL POC Glucose (mg/dL) 124 H 129 H (75-99) mg/dL Calcium (8.4-10.2) mg/dL AST (14-36) U/L ALT (4-34) U/L Alkaline Phosphatase (38-126) U/L Total Protein (6.3-8.2) g/dL Albumin (3.5-5.0) g/dL Procalcitonin (0.02-0.09) ng/mL Microbiology - Last 24 Hours (Table) 08/02/20 12:00 Gram Stain - Final Sputum Sputum Culture - Final 08/02/20 09:31 Blood Culture - Preliminary Blood No Growth after 24 hours - Imaging and Cardiology Chest x-ray: report reviewed, image reviewed Assessment and Plan Assessment: 1. Triple-vessel coronary artery disease, unstable angina, status post three- vessel CABG 2. History of coronary artery disease with previous myocardial infarction and stent placement 3. Peripheral arterial disease with lower extremity stenting 4. History of lung cancer status post right lower lobectomy 5. Hypertension, currently hypotensive requiring IV pressors 6. Hyperlipidemia, treated, cholesterol 152, LDL 85 7. COPD with previous tobacco dependence, preoperative FEV1 82% of predicted 8. Anxiety/depression 9. Family history of premature coronary artery disease 10. Postoperative acute blood loss anemia, expected, status post 1 unit packed red blood cell transfusion 11. Postoperative acute/subacute right cerebellar infarct, unexpected, with evidence of previous right parietal stroke 12. Bilateral internal carotid artery disease greater than 75% present on CTA 13. Prolonged mechanical ventilation 14. Paroxysmal atrial fibrillation, status post ligation of the left atrial appendage, currently sinus rhythm 15. Leukocytosis, preliminary results of sputum culture showing moderate gram- positive cocci Plan: 1. Continue aspirin, statin and beta tran. Will increase beta tran therapy as tolerated. 2. Continue amiodarone for A. fib prophylaxis. Continue heparin drip per protocol. 3. Mechanical ventilation per pulmonology/critical care management. Bronchodilators per pulmonology/critical care management. 4. The patient is scheduled for a tracheostomy placement and percutaneous endoscopic gastrostomy tube placement for 08/06/2020. 5. Continue to monitor daily labs and chest x-rays. Electrolyte replacement per protocol. 6. GI and DVT prophylaxis. 7. Transfuse 1 unit of PRBCs for hemoglobin of 6.9 today. 8. Continue Da Silva catheter and record accurate I's and O's. 9. Pain control with current when necessary orders. 10. Dulcolax suppository 1 now. 11. Strict accurate intake and output. Daily weights 12. Limit sedation as much as possible to be able to assess neuro status. 13. The patient son Saurav was updated on her care per phone. 14. More recommendations to follow based on patient's clinical course. Time with Patient: Greater than 30
[2020-08-04 11:30] LABS: Glucose,Whole Blood 139 mg/dL (75-99)
[2020-08-04] MEDS: POTASSIUM BICARBONATE/CIT AC 20 MEQ TABLET.EFF NG-TUBE SCH ×2 (14:34→15:29)
[2020-08-04] MEDS ORDERED: POTASSIUM CHLORIDE ER 20 MEQ TAB.ER PO SCH (15:00)
[2020-08-04] MEDS ORDERED: propofoL 100 ML IV ONE (15:52)
[2020-08-04 16:05] LABS: Glucose,Whole Blood 122 mg/dL (75-99)
[2020-08-04 19:21] LABS: HCT 24.3 % (34.0-46.0); HGB 7.7 gm/dL (11.4-16.0); Hypochromasia Slight; MCH 29.7 pg (25.0-35.0); MCHC 31.7 g/dL (31.0-37.0); MCV 93.8 fL (80.0-100.0); Mean Platelet Volume 7.4; Platelet Count 471 k/uL (150-450); RBC 2.59 m/uL (3.80-5.40); RDW 14.3 % (11.5-15.5); WBC 17.4 k/uL (3.8-10.6)
--- NOTE | 2020-08-04 19:32 | P.PN ---
Subjective Progress Note Date: 08/04/20 CHIEF COMPLAINT: Vent dependent respiratory failure HISTORY OF PRESENT ILLNESS: The patient is a 75-year-old female status post CABG 3 for coronary artery disease. She has been failure to wean from vent beyond 2 weeks. She is currently on full ventilatory support. As she is unable to extubate, tracheostomy including gastrostomy tube feeding is being advised. ROS: No fevers or chills. Tolerating tube feeds. PHYSICAL EXAM: VITAL SIGNS: Reviewed CONSTITUTIONAL: Well developed and in no acute distress. EYES: Conjuctivae without sclera icterus. HEAD, EARS, NOSE, THROAT: Moist buccal mucosa. Head is atraumatic, normocephalic. No nasal drainage. NECK: Supple. No thyroidomegaly. RESPIRATORY: Full ventilatory support. Intubated.. Has chest brace. CARDIOVASCULAR: Regular rate. Regular rhythm. ABDOMEN: No peritonitis. MUSCULOSKELETAL: No clubbing. No cyanosis. SKIN: Good skin turgor. Well perfused. NEUROLOGIC: Cranial nerves II through XII grossly intact. No focal or lateralizing signs. PSYCH: Sedated CLINICAL LABS: White blood cell count elevated at 17.4. Hemoglobin low 7.7 ASSESSMENT: 1. Vent dependent respiratory failure 2. Anemia 3. Leukocytosis 4. Coronary artery disease status post CABG PLAN: 1. She is on full vent support and patient is hospital day 14. 2. She is poor candidate for extubation. 3. Trach and PEG advised. Objective - Vital Signs Vital signs: Vital Signs Temp 98.6 F 08/04/20 16:31 Pulse 64 08/04/20 19:00 Resp 21 08/04/20 19:00 BP 99/46 08/04/20 19:00 Pulse Ox 98 08/04/20 19:00 Intake & Output 08/04/20 08/04/20 08/05/20 06:59 18:59 06:59 Intake Total 193.715 5085.757 48 Output Total 485 590 250 Balance 381.628 834.757 -202 Weight 89.9 kg Intake: IV 240 290 20 Lactated Ringers 1,000 ml 240 240 20 @ 20 mls/hr IV .Q24H [facility] Rx#:[id number] cefTRIAXone 1 gm In 50 Sodium Chloride 0.9% 50 ml @ 100 mls/hr IVPB Q24HR [facility] Rx#:[id number] Intake, IV Titration 228.628 366.757 Amount Heparin Sod,Pork in 0.45% 128.628 76.977 NaCl 25,000 unit In 0.45 % NaCl 1 250ml.bag @ 10. 89 UNITS/KG/HR 9.997 mls/ hr IV .Q24H [facility] Rx#: [id number] levETIRAcetam IV 500 mg 100 In Sodium Chloride 0.9% 100 ml @ 400 mls/hr IVPB Q12HR [facility] Rx#:[id number] propofoL 1,000 mg In 62.750 Empty Bag 1 bag @ Titrate IV .Q0M [facility] Rx#: [id number] propofoL 500 mg In Empty 100 127.030 Bag 1 bag @ Titrate IV . Q0M [facility] Rx#:[id number] Tube Feeding 308 308 28 Blood Product 310 Rc Irr As1 Unit 310 [id number] Other 90 150 Output: Urine 485 590 250 Other: Voiding Method Indwelling Catheter Indwelling Catheter ABP, PAP, CO, CI - Last Documented Arterial Blood Pressure 113/55 Pulmonary Artery Pressure 40/20 Cardiac Output 4.3 Cardiac Index 2.2 - Labs CBC & Chem 7: 08/14/20 03:29 08/14/20 08:41 Labs: Abnormal Lab Results - Last 24 Hours (Table) 08/03/20 08/03/20 08/04/20 Range/Units 20:08 23:24 03:25 WBC 19.4 H (3.8-10.6) k/uL RBC 2.32 L (3.80-5.40) m/uL Hgb 6.9 L* (11.4-16.0) gm/dL Hct 21.4 L (34.0-46.0) % Plt Count 508 H (150-450) k/uL APTT (22.0-30.0) sec ABG pH (7.35-7.45) ABG pO2 (83-108) mmHg ABG HCO3 (21-25) mmol/L ABG Total CO2 (19-24) mmol/L ABG O2 Saturation (94-97) % Carbon Dioxide (22-30) mmol/L BUN (7-17) mg/dL Glucose (74-99) mg/dL POC Glucose (mg/dL) 101 H 110 H (75-99) mg/dL Calcium (8.4-10.2) mg/dL AST (14-36) U/L ALT (4-34) U/L Alkaline Phosphatase (38-126) U/L Total Protein (6.3-8.2) g/dL Albumin (3.5-5.0) g/dL Crossmatch 08/04/20 08/04/20 08/04/20 Range/Units 03:25 03:25 03:52 WBC (3.8-10.6) k/uL RBC (3.80-5.40) m/uL Hgb (11.4-16.0) gm/dL Hct (34.0-46.0) % Plt Count (150-450) k/uL APTT 57.0 H (22.0-30.0) sec ABG pH (7.35-7.45) ABG pO2 (83-108) mmHg ABG HCO3 (21-25) mmol/L ABG Total CO2 (19-24) mmol/L ABG O2 Saturation (94-97) % Carbon Dioxide 31 H (22-30) mmol/L BUN 29 H (7-17) mg/dL Glucose 109 H (74-99) mg/dL POC Glucose (mg/dL) 124 H (75-99) mg/dL Calcium 8.2 L (8.4-10.2) mg/dL AST 117 H (14-36) U/L ALT 106 H (4-34) U/L Alkaline Phosphatase 146 H (38-126) U/L Total Protein 5.1 L (6.3-8.2) g/dL Albumin 2.7 L (3.5-5.0) g/dL Crossmatch 08/04/20 08/04/20 08/04/20 Range/Units 04:57 08:07 11:29 WBC (3.8-10.6) k/uL RBC (3.80-5.40) m/uL Hgb (11.4-16.0) gm/dL Hct (34.0-46.0) % Plt Count (150-450) k/uL APTT (22.0-30.0) sec ABG pH 7.51 H (7.35-7.45) ABG pO2 81 L (83-108) mmHg ABG HCO3 30 H (21-25) mmol/L ABG Total CO2 32 H (19-24) mmol/L ABG O2 Saturation 97.1 H (94-97) % Carbon Dioxide (22-30) mmol/L BUN (7-17) mg/dL Glucose (74-99) mg/dL POC Glucose (mg/dL) 129 H 139 H (75-99) mg/dL Calcium (8.4-10.2) mg/dL AST (14-36) U/L ALT (4-34) U/L Alkaline Phosphatase (38-126) U/L Total Protein (6.3-8.2) g/dL Albumin (3.5-5.0) g/dL Crossmatch 08/04/20 08/04/20 08/04/20 Range/Units 13:00 16:03 18:39 WBC 17.4 H (3.8-10.6) k/uL RBC 2.59 L (3.80-5.40) m/uL Hgb 7.7 L (11.4-16.0) gm/dL Hct 24.3 L (34.0-46.0) % Plt Count 471 H (150-450) k/uL APTT (22.0-30.0) sec ABG pH (7.35-7.45) ABG pO2 (83-108) mmHg ABG HCO3 (21-25) mmol/L ABG Total CO2 (19-24) mmol/L ABG O2 Saturation (94-97) % Carbon Dioxide (22-30) mmol/L BUN (7-17) mg/dL Glucose (74-99) mg/dL POC Glucose (mg/dL) 122 H (75-99) mg/dL Calcium (8.4-10.2) mg/dL AST (14-36) U/L ALT (4-34) U/L Alkaline Phosphatase (38-126) U/L Total Protein (6.3-8.2) g/dL Albumin (3.5-5.0) g/dL Crossmatch See Detail Microbiology - Last 24 Hours (Table) 08/02/20 09:31 Blood Culture - Preliminary Blood No Growth after 48 hours 08/02/20 12:00 Gram Stain - Final Sputum Sputum Culture - Final Assessment and Plan (1) Congestive heart failure Status: Acute Code(s): I50.9 - HEART FAILURE, UNSPECIFIED SNOMED Code(s): 52097298 (2) Respiratory failure Status: Acute Code(s): J96.90 - RESPIRATORY FAILURE, UNSP, UNSP W HYPOXIA OR HYPERCAPNIA SNOMED Code(s): 299112718 (3) Status post aorto-coronary artery bypass graft Status: Acute Code(s): Z95.1 - PRESENCE OF AORTOCORONARY BYPASS GRAFT SNOMED Code(s): 338795455
--- NOTE | 2020-08-04 20:18 | P.PN ---
Subjective 08/03/2020 This is a pleasant 75-year-old patient of Dr. Derrick Neal. Chronic stable medical conditions include COPD, hyperlipidemia, hypertension, ostial arthritis, lung cancer 6 years ago, peripheral artery disease, coronary artery stent, perip heral stents, anxiety depression. Patient presented after she was having central chest pressure at home then went to both the shoulder blades for the arms. Admitted with unstable angina. underwent cardiac catheterization. Found to have severe triple-vessel coronary artery disease. Pulmonary team evaluated the patient and told her low risk for surgery. July 27-underwent coronary bypass 3, ligation of left atrial appendage. Patient received a unit of blood.postsurgery was found to have weakness on the left side.stroke was noted on the computed tomography scan. Including lacunar infarct.patient has been in and out of atrial fibrillation. computed tomography scan of the brain reviewed by Dr. Carrion: Acute bilateral cerebellar ischemic stroke as well as subacute evolving ischemic infarction involving the right MCA/TAZ watershed territory left caudate head ischemic infarction. [place] to be embolic. ICU-ventilator , has NG tube Today she remains in the ICU intubated and sedated with pulmonary/critical care team following her closely. And help with vent management. Her breathing rate is around 28, blood pressure 149/77, she is a slightly tachycardiac 95-120. Afebrile for 24 hours. Labs showed leukocytosis of 22.5, hemoglobin 7.7. BMP is unremarkable. Liver enzymes mildly elevated. Glucose is controlled. Patient evaluated by surgery team for PEG tube placement on 08/06, with coinciding take his replacement patient is undergoing sedation holiday by pulmonary team Sputum culture is growing gram-positive cocci and antibiotics were initiated by pulmonary team, currently she is on ceftriaxone Medication included heparin drip, Keppra and amiodarone 08/04/2020 Patient remains intubated and sedated in the ICU with pulmonary/critical care team monitor the patient closely. And help with event management. She still underwent going sedation a trial with poor response, probably related to her general condition and multiple cerebral infarcts involving the right MCA and TAZ. Surgical team to evaluate the patient for possible tracheostomy and PEG tube per pulmonary/critical care team recommendation possibly on Sunday 08/06 Patient is with low-grade fever today at 100.4, vitals looks stable WBC trended down slowly to 17.4 K. Hemoglobin 7.7. Compared to 6.9 yesterday, patient is status post blood transfusion BMP is unremarkable. Sugar control. Bilirubin is normal, liver enzymes slightly elevated. Patient currently on Rocephin . She is on Keppra and heparin drip. patient is followed closely by cardiology and cardiothoracic surgery team. Neurology team already evaluated the patient Review of systems: N/a Active Medications Generic Name Dose Route Start Last Admin Trade Name Freq PRN Reason Stop Dose Admin Hydrocodone Bitart/Acetaminophen 1 each 07/28/20 01:54 08/02/20 11:14 Hydrocodone/Apap 5-325mg 1 Each Tab PO 1 each Q4HR PRN Administration Moderate Pain Albuterol/Ipratropium 3 ml 07/27/20 14:15 Ipratropium-Albuterol 3 Ml Neb INHALATION RT-Q2H PRN Shortness Of Breath Or Wheezing Albuterol/Ipratropium 3 ml 08/04/20 12:00 08/04/20 20:03 Ipratropium-Albuterol 3 Ml Neb INHALATION 3 ml RT-Q4H INÉS Administration Amiodarone HCl 400 mg 08/02/20 09:00 08/04/20 08:47 Amiodarone 200 Mg Tab PO 400 mg BID INÉS Administration Aspirin 81 mg 08/02/20 09:00 08/04/20 08:47 Aspirin 81 Mg PO 81 mg DAILY INÉS Administration Atorvastatin Calcium 80 mg 07/21/20 21:00 08/03/20 20:41 Atorvastatin 80 Mg Tab PO 80 mg HS INÉS Administration Benzocaine/Menthol 1 each 07/27/20 14:15 Benzocaine/Menthol Lozeng 1 Each Lozenge MUCOUS MEM Q2H PRN Sore Throat Bisacodyl 10 mg 07/28/20 09:00 08/04/20 08:47 Bisacodyl 10 Mg Supp RECTAL 10 mg DAILY PRN Administration Constipation Chlorhexidine Gluconate 15 ml 07/31/20 21:00 08/04/20 08:47 Chlorhexidine Gluconate 15 Ml Cup MUCOUS MEM 15 ml BID INÉS Administration Ezetimibe 10 mg 07/21/20 21:00 08/03/20 20:42 Ezetimibe 10 Mg Tab PO 10 mg HS INÉS Administration Heparin Sodium (Porcine) 0 unit 08/02/20 08:29 08/03/20 08:21 Heparin Sodium,Porcine 5,000 Unit/Ml 1 Ml Vial IV 4,550 unit PER PROTOCOL PRN Administration Low PTT Protocol Lactated Ringer's 1,000 mls @ 20 mls/hr 07/27/20 14:15 08/04/20 04:04 Lactated Ringers IV 20 mls/hr .Q24H INÉS Administration Calcium Gluconate 2 gm/ Sodium 120 mls @ 100 mls/hr 07/27/20 14:15 Chloride IVPB 08/06/20 14:16 ONCE PRN Ionized Calcium less than 4.4 Levetiracetam 500 mg/ Sodium 105 mls @ 400 mls/hr 07/29/20 21:00 08/04/20 08:48 Chloride IVPB 400 mls/hr Q12HR INÉS Administration Heparin Sodium/Sodium Chloride 250 mls @ 9.997 mls/hr 08/02/20 08:30 08/04/20 13:43 25,000 unit/ Sodium Chloride IV 10.89 units/kg/hr .Q24H INÉS 9.997 mls/hr Administration Protocol 10.89 UNITS/KG/HR Ceftriaxone Sodium 1 gm/ 50 mls @ 100 mls/hr 08/03/20 10:30 08/04/20 08:48 Sodium Chloride IVPB 100 mls/hr Q24HR INÉS Administration Propofol 1,000 mg/ IV Solution 100 mls @ 0 mls/hr 08/04/20 16:00 08/04/20 18:44 IV 35 mcg/kg/min .Q0M INÉS 18.879 mls/hr Titration Protocol Titrate Insulin Aspart 0 unit 07/30/20 16:00 08/04/20 16:05 Insulin Aspart (Novolog) 100 Unit/Ml Vial SQ Not Given Q4HR [facility] Protocol Magnesium Hydroxide 2,400 mg 07/28/20 09:00 Magnesium Hydroxide 2,400 Mg/10 Ml Cup PO BID PRN Constipation Metoclopramide HCl 10 mg 07/27/20 14:15 Metoclopramide 5 Mg/Ml 2 Ml Vial IVP Q4H PRN Nausea And Vomiting Metoprolol Tartrate 25 mg 08/03/20 09:00 08/04/20 15:42 Metoprolol Tartrate 25 Mg Tab PO Not Given TID [facility] Miscellaneous Information 1 each 07/27/20 14:15 Potassium Replacement Protocol 1 Each Misc MISCELLANE DAILY PRN Per Protocol Protocol Miscellaneous Information 1 each 07/27/20 14:15 Magnesium Replacement Protocol 1 Each [facility] MISCELLANE DAILY PRN Per Protocol Protocol Miscellaneous Information 1 each 07/27/20 14:15 Phosphorus Replacement Protoco 1 Each [facility] MISCELLANE DAILY PRN Per Protocol Protocol Ondansetron HCl 4 mg 07/27/20 14:15 Ondansetron 4 Mg/2 Ml Vial IVP Q6HR PRN Nausea And Vomiting Pantoprazole Sodium 40 mg 07/28/20 09:00 08/04/20 08:47 Pantoprazole 40 Mg/10 Ml Vial IVP 40 mg DAILY INÉS Administration Senna/Docusate Sodium 2 each 07/28/20 21:00 08/03/20 20:42 Sennosides-Docusate Sodium 1 Each Tab PO 2 each HS INÉS Administration Sertraline HCl 100 mg 07/21/20 09:00 08/04/20 08:49 Sertraline 100 Mg Tab PO 100 mg DAILY INÉS Administration Sodium Chloride 10 ml 07/27/20 21:00 08/04/20 08:49 Sodium Chloride 0.9% Flush 10 Ml Syringe IV 10 ml BID INÉS Administration Objective - Vital Signs Vital signs: Vital Signs Temp 96.6 F L 08/04/20 12:00 Pulse 63 08/04/20 12:00 Resp 20 08/04/20 12:00 BP 134/61 08/04/20 12:00 Pulse Ox 98 08/04/20 12:00 Intake & Output 08/03/20 08/04/20 08/04/20 18:59 06:59 18:59 Intake Total 871.196 866.628 592.706 Output Total 460 485 245 Balance 411.196 381.628 347.706 Weight 91.4 kg 89.9 kg Intake: IV 220 240 170 Lactated Ringers 1,000 ml 220 240 120 @ 20 mls/hr IV .Q24H INÉS Rx#:[id number] cefTRIAXone 1 gm In 50 Sodium Chloride 0.9% 50 ml @ 100 mls/hr IVPB Q24HR INÉS Rx#:[id number] Intake, IV Titration 281.196 228.628 162.706 Amount Heparin Sod,Pork in 0.45% 143.532 128.628 NaCl 25,000 unit In 0.45 % NaCl 1 250ml.bag @ 10. 89 UNITS/KG/HR 9.997 mls/ hr IV .Q24H INÉS Rx#: [id number] levETIRAcetam IV 500 mg 100 In Sodium Chloride 0.9% 100 ml @ 400 mls/hr IVPB Q12HR INÉS Rx#:[id number] propofoL 500 mg In Empty 137.664 100 62.706 Bag 1 bag @ Titrate IV . Q0M INÉS Rx#:[id number] Tube Feeding 280 308 140 Other 90 90 120 Output: Urine 460 485 245 Other: Voiding Method Indwelling Catheter Indwelling Catheter Indwelling Catheter ABP, PAP, CO, CI - Last Documented Arterial Blood Pressure 113/55 Pulmonary Artery Pressure 40/20 Cardiac Output 4.3 Cardiac Index 2.2 - Exam -GENERAL: The patient is intubated and sedated HEENT: Pupils are round and equally reacting to light. EOMI. No scleral icterus. No conjunctival pallor. Normocephalic, atraumatic. No pharyngeal erythema. No thyromegaly. CARDIOVASCULAR: S1 and S2 present. No murmurs, rubs, or gallops. PULMONARY: Chest is clear to auscultation, no wheezing or crackles. ABDOMEN: Soft, nontender, nondistended, normoactive bowel sounds. No palpable organomegaly. MUSCULOSKELETAL: No joint swelling or deformity. EXTREMITIES: No cyanosis, clubbing, or pedal edema. NEUROLOGICAL: Gross neurological examination did not reveal any focal deficits. SKIN: No rashes. no petechiae. - Labs CBC & Chem 7: 08/04/20 18:39 08/04/20 18:39 Labs: Abnormal Lab Results - Last 24 Hours (Table) 08/03/20 08/03/20 08/03/20 Range/Units 14:11 15:58 20:08 WBC (3.8-10.6) k/uL RBC (3.80-5.40) m/uL Hgb (11.4-16.0) gm/dL Hct (34.0-46.0) % Plt Count (150-450) k/uL APTT 63.5 H (22.0-30.0) sec ABG pH (7.35-7.45) ABG pO2 (83-108) mmHg ABG HCO3 (21-25) mmol/L ABG Total CO2 (19-24) mmol/L ABG O2 Saturation (94-97) % Carbon Dioxide (22-30) mmol/L BUN (7-17) mg/dL Glucose (74-99) mg/dL POC Glucose (mg/dL) 138 H 101 H (75-99) mg/dL Calcium (8.4-10.2) mg/dL AST (14-36) U/L ALT (4-34) U/L Alkaline Phosphatase (38-126) U/L Total Protein (6.3-8.2) g/dL Albumin (3.5-5.0) g/dL 08/03/20 08/04/20 08/04/20 Range/Units 23:24 03:25 03:25 WBC 19.4 H (3.8-10.6) k/uL RBC 2.32 L (3.80-5.40) m/uL Hgb 6.9 L* (11.4-16.0) gm/dL Hct 21.4 L (34.0-46.0) % Plt Count 508 H (150-450) k/uL APTT (22.0-30.0) sec ABG pH (7.35-7.45) ABG pO2 (83-108) mmHg ABG HCO3 (21-25) mmol/L ABG Total CO2 (19-24) mmol/L ABG O2 Saturation (94-97) % Carbon Dioxide 31 H (22-30) mmol/L BUN 29 H (7-17) mg/dL Glucose 109 H (74-99) mg/dL POC Glucose (mg/dL) 110 H (75-99) mg/dL Calcium 8.2 L (8.4-10.2) mg/dL AST 117 H (14-36) U/L ALT 106 H (4-34) U/L Alkaline Phosphatase 146 H (38-126) U/L Total Protein 5.1 L (6.3-8.2) g/dL Albumin 2.7 L (3.5-5.0) g/dL 08/04/20 08/04/20 08/04/20 Range/Units 03:25 03:52 04:57 WBC (3.8-10.6) k/uL RBC (3.80-5.40) m/uL Hgb (11.4-16.0) gm/dL Hct (34.0-46.0) % Plt Count (150-450) k/uL APTT 57.0 H (22.0-30.0) sec ABG pH 7.51 H (7.35-7.45) ABG pO2 81 L (83-108) mmHg ABG HCO3 30 H (21-25) mmol/L ABG Total CO2 32 H (19-24) mmol/L ABG O2 Saturation 97.1 H (94-97) % Carbon Dioxide (22-30) mmol/L BUN (7-17) mg/dL Glucose (74-99) mg/dL POC Glucose (mg/dL) 124 H (75-99) mg/dL Calcium (8.4-10.2) mg/dL AST (14-36) U/L ALT (4-34) U/L Alkaline Phosphatase (38-126) U/L Total Protein (6.3-8.2) g/dL Albumin (3.5-5.0) g/dL 08/04/20 08/04/20 Range/Units 08:07 11:29 WBC (3.8-10.6) k/uL RBC (3.80-5.40) m/uL Hgb (11.4-16.0) gm/dL Hct (34.0-46.0) % Plt Count (150-450) k/uL APTT (22.0-30.0) sec ABG pH (7.35-7.45) ABG pO2 (83-108) mmHg ABG HCO3 (21-25) mmol/L ABG Total CO2 (19-24) mmol/L ABG O2 Saturation (94-97) % Carbon Dioxide (22-30) mmol/L BUN (7-17) mg/dL Glucose (74-99) mg/dL POC Glucose (mg/dL) 129 H 139 H (75-99) mg/dL Calcium (8.4-10.2) mg/dL AST (14-36) U/L ALT (4-34) U/L Alkaline Phosphatase (38-126) U/L Total Protein (6.3-8.2) g/dL Albumin (3.5-5.0) g/dL Microbiology - Last 24 Hours (Table) 08/02/20 09:31 Blood Culture - Preliminary Blood No Growth after 48 hours 08/02/20 12:00 Gram Stain - Final Sputum Sputum Culture - Final Assessment and Plan Assessment: Triple vessel coronary artery disease, status post bypass surgery on 07/27 Acute bilateral cerebellar ischemic stroke as well as subacute evolving ischemic infarction involving the right MCA/TAZ watershed territory left caudate head ischemic infarction. [place] to be embolic./post surgical, with left hemiparesis Paroxysmal atrial fibrillation.in and out of rapid atrial fibrillation Acute hypoxic respiratory failure needing mechanical ventilation Possible ischemic encephalopathy with toxic encephalopathy Unstable angina secondary to above, currently patient with no chest pain Possible respiratory infection with sputum culture, gram-positive cocci Pulmonary emphysema with fibrotic changes in the right lower lung History of lung cancer status post surgical resection Hypertension Peripheral vascular disease Hyperlipidemia Osteoarthritis Plan: This is a pleasant 75 years old female with triple-vessel coronary artery disease. Cardiothoracic surgery on the case and workup is was done prior to surgical intervention, pulmonary evaluated the patient preoperatively and she is low risk. Patient was on heparin drip prior to surgery but with cardiology were following case closely Continue with aspirin, Plavix, statin and metoprolol, continue with Keppra per Neurologist Patient is going for PEG tube placement and tracheostomy on 08/15 per recommendat ion of pulmonary and surgical teams Continue with anticoagulation per [employer] recommendation Several consultants of the case including neurologist, systems checkout mechanic, pulmonary/critical care team decides to the cardiothoracic surgical and Gen. surgical teams and she will follow the recommendations Labs and medication were reviewed.. Continue same treatment. Continue with symptomatic treatment. Resume home medication. Monitor lytes and vitals. DVT and GI prophylaxis. Further recommendations as per clinical course of the patient DVT prophylaxis: heparin GI Prophylaxis: Ppi Prognosis is guarded
[2020-08-04 20:31] LABS: Glucose,Whole Blood 99 mg/dL (75-99)
[2020-08-04] MEDS: ATORVASTATIN 80 MG TAB PO SCH (20:46)
[2020-08-04] MEDS: SENNOSIDES-DOCUSATE SODIUM 1 EACH TAB PO SCH (20:46)
[2020-08-04] MEDS: EZETIMIBE 10 MG TAB PO SCH (20:46)
[2020-08-04 23:54] LABS: Glucose,Whole Blood 105 mg/dL (75-99)
[2020-08-05] MEDS: IPRATROPIUM-ALBUTEROL 3 ML NEB INHALATION SCH ×6 (00:30→20:18)
[2020-08-05] MEDS: INSULIN ASPART (NovoLOG) 100 UNIT/ML VIAL SQ SCH ×4 (00:38→17:39)
[2020-08-05] MEDS: LACTATED RINGERS 1,000 ML IV SCH (01:47)
[2020-08-05 03:36] LABS: Basophils # (A) 0.1 k/uL (0-0.2); Basophils % (A) 1 %; Eosinophils # (A) 0.9 k/uL (0-0.7); Eosinophils % (A) 6 %; HCT 23.2 % (34.0-46.0); HGB 7.6 gm/dL (11.4-16.0); Hypochromasia Slight; Lymphocytes # (A) 2.1 k/uL (1.0-4.8); Lymphocytes % (A) 12 %; MCH 30.3 pg (25.0-35.0); MCHC 32.9 g/dL (31.0-37.0); MCV 92.1 fL (80.0-100.0); Mean Platelet Volume 7.4; Monocytes # (A) 0.9 k/uL (0-1.0); Monocytes % (A) 6 %; Neutrophils # (A) 12.4 k/uL (1.3-7.7); Neutrophils % (A) 75 %; Platelet Count 508 k/uL (150-450); Poikilocytosis Slight; RBC 2.52 m/uL (3.80-5.40); RDW 14.7 % (11.5-15.5); WBC 16.6 k/uL (3.8-10.6)
[2020-08-05 04:22] LABS: ALT 156 U/L (4-34); AST 142 U/L (14-36); African American GFR (CKD) >90 (>60 ml/min/1.73 sqM); Albumin 2.6 g/dL (3.5-5.0); Alkaline Phosphatase 149 U/L (38-126); Anion Gap 6 mmol/L; Blood Urea Nitrogen 27 mg/dL (7-17); Calcium 8.1 mg/dL (8.4-10.2); Carbon Dioxide 26 mmol/L (22-30); Chloride 105 mmol/L (98-107); Glucose 106 mg/dL (74-99); Non-African American GFR(CKD) 89 (>60 ml/min/1.73 sqM); Potassium 3.7 mmol/L (3.5-5.1); Sodium 137 mmol/L (137-145); Total Bilirubin 0.9 mg/dL (0.2-1.3)
[2020-08-05] MEDS ORDERED: Potassium Replacement Protocol 1 EACH MISC MISCELLANE PRN (04:27)
[2020-08-05 04:56] LABS: ABG Base Excess 0.3 mmol/L; ABG HCO3 25 mmol/L (21-25); ABG Oxygen Saturation 93.4 % (94-97); ABG PCO2 38 mmHg (35-45); ABG PH 7.42 (7.35-7.45); ABG PO2 66 mmHg (83-108); ABG TCO2 26 mmol/L (19-24); Allen Test Performed? Yes
[2020-08-05] MEDS ORDERED: POTASSIUM BICARBONATE/CIT AC 20 MEQ TABLET.EFF NG-TUBE SCH (06:00)
--- NOTE | 2020-08-05 06:51 | XR ---
"EXAMINATION TYPE: XR chest 1V portable DATE OF EXAM: 08/05/2020 CLINICAL HISTORY: Difficulty breathing progress study. TECHNIQUE: Single AP portable semiupright view of the chest is obtained. COMPARISON: Chest x-ray from one day earlier and older studies. FINDINGS: Stable left-sided PICC line. Stable low-lying endotracheal and weighted feeding tubes. Low er thoracic spinal stimulator redemonstrated. Overlying sternal wires and mediastinal clips along with left atrial appendage clip are all redemonst rated. Patient rotated to the right on current study. Persistent cardiomegaly with central vascular congestion and worsening left basilar opacity. IMPRESSION: Cardiomegaly with moderate central vascular congestion and left basilar small pleural eff usion with associated acute infiltrate and/or atelectasis. Findings worsened from one day earlier. St able low-lying endotracheal tube, advised pulling back 2 to 3 cm. This may be contributing to worseni ng left basilar findings A Yellow level critical message alert has been initiated for Lana Ward via the [employer] | Cri tical Results System on 08/05/2020 6:48 AM. This message alert has been sent to Lana Ward via the pr eferences provided by the clinician for the receipt of Radiology Critical Findings. Message ID [id number]."
[2020-08-05] MEDS ORDERED: FUROSEMIDE 10 MG/ML 2 ML VIAL IV ONE (08:10)
[2020-08-05] MEDS: METOPROLOL TARTRATE 25 MG TAB PO SCH ×4 (08:30→21:25)
[2020-08-05] MEDS: SERTRALINE 100 MG TAB PO SCH (08:30)
[2020-08-05] MEDS: PANTOPRAZOLE 40 MG/10 ML VIAL IVP SCH (08:30)
[2020-08-05] MEDS: ASPIRIN 81 MG PO SCH (08:30)
[2020-08-05] MEDS: CHLORHEXIDINE GLUCONATE 15 ML CUP MUCOUS MEM SCH ×2 (08:31→21:12)
[2020-08-05] MEDS: levETIRAcetam IV 500 MG in SODIUM CHLORIDE 0.9% 100 ML IVPB SCH ×2 (08:31→21:13)
--- NOTE | 2020-08-05 09:30 | P.PN ---
Subjective Progress Note Date: 08/05/20 Principal diagnosis: Triple-vessel coronary artery disease, unstable angina. Past medical history significant for coronary artery disease with previous myocardial infarction and stent placement, peripheral arterial disease with lower extremity stenting, lung cancer status post right lower lobectomy in 2011, hypertension, hyperlipidemia, COPD with previous tobacco dependence, anxiety/depression, family history of premature coronary artery disease with 2 of her sons having had coronary artery bypass grafting surgery, significant plaque formation more than 75% stenosis at the origins of both internal and external carotid arteries bilaterally on CTA. POD #9 coronary artery bypass grafting 3 vessels, left internal mammary artery to the left anterior descending artery, a reverse greater saphenous vein graft to the obtuse marginal artery, a reverse greater saphenous vein graft to the posterior descending artery, endoscopic harvesting of the right greater saphenous vein, ligation of the left atrial appendage using a 35 mm AtriClip, epi-aortic ultrasound and intraoperative transesophageal echocardiogram. Postoperative acute blood loss anemia, expected given hemodilution and cardiopulmonary bypass pump. Postoperative right acute/subacute cerebellar infarct on brain CT, unexpected, although possible complication of any open heart surgery, especially given patient's known history of significant arterial disease. Prolonged mechanical ventilation, unexpected, secondary to acute stroke. Paroxysmal atrial fibrillation, known common occurrence after open heart candida allie. The patient was seen in follow-up today 08/05/2020 under bedside in intensive care unit. Currently she is sedated on propofol drip at 35 mcg/kg/m, remains intubated with mechanical ventilator support, current mechanical ventilator settings are as follows, assist control 16, TV 350, FiO2 40% and PEEP of 5. Oxygen saturation on current mechanical ventilator settings are 97%. ABG results this morning show a pH of 7.42, pCO2 38, pO2 66, HCO3 25, oxygen saturation 93.4 and base excess 0.3. Bedside telemetry currently showing normal sinus rhythm heart rate 60 bpm. she is on metoprolol tartrate 25 mg per OG tube 3 times a day and amiodarone 400 mg per OG tube twice a day. She remained h emodynamically stable and is currently on no inotropic or pressor support. Her T-max temperature in the last 24 hours was 100.4F, she remains on Rocephin for antibiotic coverage. Sputum and blood cultures from 08/02/2020 continued to show no growth. Laboratory results this morning show a WBC count of 16.6, hemoglobin 7.6, hematocrit 23.2, platelets 508, BUN 27, creatinine 0.60, AST 142 and ALT is 156. One unit of PRBCs was transfused for hemoglobin of 6.9 yesterday. Objective - Vital Signs Vital signs: Vital Signs Temp 98.1 F 08/05/20 08:00 Pulse 66 08/05/20 08:16 Resp 22 08/05/20 08:00 BP 106/50 08/05/20 08:00 Pulse Ox 98 08/05/20 08:00 Intake & Output 08/04/20 08/05/20 08/05/20 18:59 06:59 18:59 Intake Total 1424.757 946.225 126 Output Total 590 990 90 Balance 834.757 -43.775 36 Weight 90.3 kg Intake: IV 290 240 40 Lactated Ringers 1,000 ml 240 240 40 @ 20 mls/hr IV .Q24H [facility] Rx#:[id number] cefTRIAXone 1 gm In 50 Sodium Chloride 0.9% 50 ml @ 100 mls/hr IVPB Q24HR [facility] Rx#:[id number] Intake, IV Titration 366.757 280.225 Amount Heparin Sod,Pork in 0.45% 76.977 161.118 NaCl 25,000 unit In 0.45 % NaCl 1 250ml.bag @ 10. 89 UNITS/KG/HR 9.997 mls/ hr IV .Q24H [facility] Rx#: [id number] levETIRAcetam IV 500 mg 100 In Sodium Chloride 0.9% 100 ml @ 400 mls/hr IVPB Q12HR [facility] Rx#:[id number] propofoL 1,000 mg In 62.750 119.107 Empty Bag 1 bag @ Titrate IV .Q0M [facility] Rx#: [id number] propofoL 500 mg In Empty 127.030 Bag 1 bag @ Titrate IV . Q0M [facility] Rx#:[id number] Tube Feeding 308 336 56 Blood Product 310 Rc Irr As1 Unit 310 [id number] Other 150 90 30 Output: Urine 590 990 90 Other: Voiding Method Indwelling Catheter Indwelling Catheter Indwelling Catheter ABP, PAP, CO, CI - Last Documented Arterial Blood Pressure 113/55 Pulmonary Artery Pressure 40/20 Cardiac Output 4.3 Cardiac Index 2.2 - Exam The patient remains intubated with mechanical ventilator support. Currently sedated on propofol drip at 35 mcg/kg/m. She continues to respond to noxious stimuli to her bilateral upper and lower extremities. Not following any verbal commands at this time. - Constitutional General appearance: Present: no acute distress - EENT Eyes: Present: normal appearance. Absent: scleral icterus - Neck Details: Neck is supple, no JVD. No lymphadenopathy. - Respiratory Details: Lung sounds with scattered rhonchi throughout, diminished bilateral bases. Respirations are symmetrical and nonlabored with mechanical ventilator support. Current mechanical ventilator settings are as follows, assist control 16, TV 3 50, FiO2 40% and PEEP of 5. Oxygen saturation is 97% on current mechanical ventilator settings. - Cardiovascular Details: Regular rhythm and rate. S1 and S2 present, negative for S3, gallop or murmur. Sternum is stable. Heart hugger is in place. Knee-high DEBI hose and sequential compression devices in place to her bilateral lower extremities. Left arm PICC line in place and functioning. Bedside telemetry showing normal sinus rhythm heart rate 60 BPM. Generalized +1 edema. - Gastrointestinal Gastrointestinal Comment(s): Abdomen is soft, nontender and nondistended. Active bowel sounds present in all 4 abdominal quadrants. No guarding or rigidity. No organomegaly appreciated. Bowel movement yesterday 08/04/2020. Dobbhoff tube in place with vital high- protein tube feeding infusing at 54 ml/hr. - Genitourinary Genitourinary Comment(s): Da Silva catheter for accurate I&O. Draining clear yellow urine 520 mL output in the last 8 hours. - Integumentary Integumentary Comment(s): Skin is warm and dry. No clubbing or cyanosis is present. Midline sternal incision is clean, dry and approximated. No drainage or redness is present. Right lower extremity EVH site is clean, dry and approximated. No drainage during this is present. - Neurologic Neurologic Comment(s): Occasional movement to her right upper and lower extremities. Not responding to verbal stimuli. Response to noxious stimuli to her bilateral upper and lower extremities. No movement to her left upper extremity. - Musculoskeletal Musculoskeletal: Present: left sided weakness - Psychiatric Psychiatric Comment(s): Unable to accurately assess at this time as the patient is sedated on propofol drip at 35 mcg/kg/m. - Allied health notes Allied health notes reviewed: nursing - Labs CBC & Chem 7: 08/05/20 03:09 08/05/20 03:09 Labs: Abnormal Lab Results - Last 24 Hours (Table) 08/04/20 08/04/20 08/04/20 Range/Units 11:29 13:00 16:03 WBC (3.8-10.6) k/uL RBC (3.80-5.40) m/uL Hgb (11.4-16.0) gm/dL Hct (34.0-46.0) % Plt Count (150-450) k/uL Neutrophils # (1.3-7.7) k/uL Eosinophils # (0-0.7) k/uL APTT (22.0-30.0) sec ABG pO2 (83-108) mmHg ABG Total CO2 (19-24) mmol/L ABG O2 Saturation (94-97) % BUN (7-17) mg/dL Glucose (74-99) mg/dL POC Glucose (mg/dL) 139 H 122 H (75-99) mg/dL Calcium (8.4-10.2) mg/dL AST (14-36) U/L ALT (4-34) U/L Alkaline Phosphatase (38-126) U/L Total Protein (6.3-8.2) g/dL Albumin (3.5-5.0) g/dL Crossmatch See Detail 08/04/20 08/04/20 08/05/20 Range/Units 18:39 23:52 03:09 WBC 17.4 H 16.6 H (3.8-10.6) k/uL RBC 2.59 L 2.52 L (3.80-5.40) m/uL Hgb 7.7 L 7.6 L (11.4-16.0) gm/dL Hct 24.3 L 23.2 L (34.0-46.0) % Plt Count 471 H 508 H (150-450) k/uL Neutrophils # 12.4 H (1.3-7.7) k/uL Eosinophils # 0.9 H (0-0.7) k/uL APTT (22.0-30.0) sec ABG pO2 (83-108) mmHg ABG Total CO2 (19-24) mmol/L ABG O2 Saturation (94-97) % BUN (7-17) mg/dL Glucose (74-99) mg/dL POC Glucose (mg/dL) 105 H (75-99) mg/dL Calcium (8.4-10.2) mg/dL AST (14-36) U/L ALT (4-34) U/L Alkaline Phosphatase (38-126) U/L Total Protein (6.3-8.2) g/dL Albumin (3.5-5.0) g/dL Crossmatch 08/05/20 08/05/20 08/05/20 Range/Units 03:09 03:09 04:43 WBC (3.8-10.6) k/uL RBC (3.80-5.40) m/uL Hgb (11.4-16.0) gm/dL Hct (34.0-46.0) % Plt Count (150-450) k/uL Neutrophils # (1.3-7.7) k/uL Eosinophils # (0-0.7) k/uL APTT 40.8 H (22.0-30.0) sec ABG pO2 66 L (83-108) mmHg ABG Total CO2 26 H (19-24) mmol/L ABG O2 Saturation 93.4 L (94-97) % BUN 27 H (7-17) mg/dL Glucose 106 H (74-99) mg/dL POC Glucose (mg/dL) (75-99) mg/dL Calcium 8.1 L (8.4-10.2) mg/dL AST 142 H (14-36) U/L ALT 156 H (4-34) U/L Alkaline Phosphatase 149 H (38-126) U/L Total Protein 5.0 L (6.3-8.2) g/dL Albumin 2.6 L (3.5-5.0) g/dL Crossmatch Microbiology - Last 24 Hours (Table) 08/02/20 09:31 Blood Culture - Preliminary Blood No Growth after 48 hours 08/02/20 12:00 Gram Stain - Final Sputum Sputum Culture - Final - Imaging and Cardiology Chest x-ray: report reviewed, image reviewed Assessment and Plan Assessment: 1. Triple-vessel coronary artery disease, unstable angina, status post three- vessel CABG 2. History of coronary artery disease with previous myocardial infarction and stent placement 3. Peripheral arterial disease with lower extremity stenting 4. History of lung cancer status post right lower lobectomy 5. Hypertension, currently hypotensive requiring IV pressors 6. Hyperlipidemia, treated, cholesterol 152, LDL 85 7. COPD with previous tobacco dependence, preoperative FEV1 82% of predicted 8. Anxiety/depression 9. Family history of premature coronary artery disease 10. Postoperative acute blood loss anemia, expected, status post 1 unit packed red blood cell transfusion 11. Postoperative acute/subacute right cerebellar infarct, unexpected, with evidence of previous right parietal stroke 12. Bilateral internal carotid artery disease greater than 75% present on CTA 13. Prolonged mechanical ventilation 14. Paroxysmal atrial fibrillation, status post ligation of the left atrial appendage, currently sinus rhythm 15. Leukocytosis, preliminary results of sputum culture showing moderate gram- positive cocci Plan: 1. Continue aspirin, statin and beta tran. Will increase beta tran therapy as tolerated. 2. Discontinue amiodarone as her liver enzymes are trending up. Continue heparin drip per protocol. 3. Mechanical ventilation per pulmonology/critical care management. Bronchodilators per pulmonology/critical care management. 4. The patient is scheduled for a tracheostomy placement and percutaneous endoscopic gastrostomy tube placement for tomorrow 08/06/2020. 5. Continue to monitor daily labs and chest x-rays. Electrolyte replacement per protocol. 6. GI and DVT prophylaxis. 7. Lasix 20 mg IV 1 now. 8. Continue Da Silva catheter and record accurate I's and O's. 9. Pain control with current when necessary orders. 10. The patient son Saurav was updated on her care per phone. 11. Strict accurate intake and output. Daily weights 12. Limit sedation as much as possible to be able to assess neuro status. 13. Send sputum for culture and sensitivity. 14. More recommendations to follow based on patient's clinical course. Time with Patient: Greater than 30
--- NOTE | 2020-08-05 10:04 | PN ---
PROGRESS NOTE Mrs. Arguello is a 75-year-old female who presented with non ST-segment elevation myocardial infarction, evidence of congestive heart failure, underwent coronary artery bypass grafting. She was found to have left-sided weakness. She has been intubated and sedated. Hemodynamically, she is stable. She is back in sinus mechanism. She is scheduled to undergo tracheostomy PEG tube placement tomorrow. She continues to be at this time on aspirin once a day, atorvastatin 80 mg daily. She is on IV heparin, metoprolol tartrate 25 mg 3 times a day. PHYSICAL EXAMINATION: Blood pressure 106/50 with a heart rate in the 60s. LUNGS: Clear anteriorly. HEART: Regular rate and rhythm, S1, S2. No S3. No rub. ABDOMEN: Soft. Positive bowel sounds. EXTREMITIES: No edema. LAB DATA: Revealed hemoglobin 7.6, white blood cell of 16.6, BUN and creatinine 26 and 0.6. Her AST is 142, ALT is 156, which is slightly worse than yesterday. Her chest x-ray shows bilateral infiltrates. IMPRESSION: 1. Respiratory failure, status post coronary artery bypass grafting. 2. Cerebrovascular accident. 3. Paroxysmal atrial fibrillation remains sinus mechanism, at this time, anticoagulated with IV heparin. 4. Left-sided weakness. 5. Prior history of non-small cell cancer. 6. History of hypertension. 7. Peripheral vascular disease. RECOMMENDATION: From the cardiac standpoint, we will continue present therapy. The plan is to proceed with tracheostomy and PEG tube placement tomorrow and from there to proceed with switching to oral anticoagulation. Depending on her progress, further recommendations will be made. The prognosis remains guarded. MMODL / IJN: [id number] /
[2020-08-05 11:51] LABS: Glucose,Whole Blood 118 mg/dL (75-99)
[2020-08-05] MEDS: HEPARIN SOD,PORK IN 0.45% NACL 25,000 UNIT in 0.45% NACL 1 250ML.BAG IV SCH (12:06)
--- NOTE | 2020-08-05 12:09 | P.PN ---
Subjective Progress Note Date: 08/05/20 Principal diagnosis: Coronary artery disease status post coronary artery bypass grafting Patient was reevaluated today on 07/28/2020, remains intubated and mechanically ventilated. Patient is now on assist control mode of mechanical ventilation with a rate of 16, volume is 450 FiO2 is 50% and PEEP of 5. Unfortunately the patient was noted to have poor movement of her left upper and left lower extremity last night, CT of the head last night showed acute/subacute area of infarction in the right cerebellum along with probable area of chronic infarction in the right parietal region I evaluated the patient this morning, seems to be extremely restless and agitated, seems to be neglecting the left side, and both eyes are deviated to the right and upwards. Patient seems to be moving her right side quite well, however the left side seems to be relatively weak although she was squeezing my hand with her left hand. And minimal movement noted in the left lower extremity. Patient is on Precedex, and seems to be agitated in spite of Precedex. Her ventilatory settings are reasonable, ABG is reasonable, patient is basically extubate overall, however her mental status is a bit concerning specially with her extreme agitation, keeps pulling and shaking the railing of the bed on the right side. Patient was given Ativan, and I have recommended increasing Precedex. She is not truly quite ready to be extubated today. Again my major concern is her mental status. And she is yet to be seen by neurology on consultation. Blood pressure is quite high, 160 systolic, norepinephrine was discontinued during my evaluation. She was on a very minimal dose of 0.1 mcg/kg/m of norepinephrine patient was also on milrinone. CBC is relatively normal hemoglobin is 7.4. ABG this morning showed a pO2 of 92 pCO2 of 38 pH of 7.45. This was on 50% FiO2. Electrolytes and renal profile are normal. Chest x-ray showed mostly postoperative changes of CABG 07/29/2020, I'm seeing the patient for a follow-up in the intensive care unit. This morning the patient is heavily sedated with propofol and she is calm and comfortable. Unfortunately with that, neurologic examination is not possible. I would suggest gradually cutting down the propofol and assess her neuro status and if needed utilize Precedex as an alternative sedative drip. Meanwhile, the patient remains essentially with enema to severe with a low dose of norepinephrine infusion running at 0.06 mcg/kg per minute. She has an adequate urine output. Cardiac rhythm is sinus. She has a left pleural and mediastinal chest tubes and output from those are in order of minimal, less than 100 over the past 24 hours. The chest x-ray showing cardiomegaly. There is some kyphoscoliosis of the chest. Chest tubes are in good location. ET tube is in good location. Atelectatic changes and some mild four-vessel congestion. Meanwhile, the patient's vent settings include an assist-control mode at the rate of 16 with a tidal volume of 450 and FiO2 of 40% with a PEEP of 5. The blood gases from this morning showed a pH of 7.49 with a pCO2 of 36 and pO2 of 82. On today's blood work, the patient's hemoglobin is down to 6.9 from 7.4. Platelets is at 210. 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 Intracranial cerebral arteries were essentially patent with nothing significantly stenotic. During our limited neurologic evaluation, the patient did not do mistreat any withdrawal with to painful stimulation. No Babinski. No clonus. Nevertheless, I was told by the nursing staff that she was able to move her right side yesterday and her left side once off sedation. Pupils are equal and reactive to light and order of 3 mm. No preferential gaze on today's evaluation. A sedation holiday will be given. She is on enteral nutrition. No other drips. No seizure activity. Neurologist on the case. She is on aspirin, Plavix, and she also on metoprolol 12.5 mg by mouth twice a day. She is also on high-dose statins. Progress note dated 05/29/2021. Currently, this is a 75-year-old female who was admitted to the hospital on July 21. She went to the operating room, on July 27 for a three-vessel bypass grafting with Dr. Alan. The patient has never been extubated. Unfortunately, she developed a right cerebellar CVA. She remains on the mechanical ventilator. She is currently on the volume assist control mode, rate is 16, tidal volume 400, FiO2 60%, and PEEP of 5. The blood gases show a PaO2 of 99, a PaCO2 of 40, and a pH of 7.44. She also remains on lactated Ringer's at 20 mL an hour, propofol was turned off for the spontaneous breathing trial, and she's been weaned off of norepinephrine. She is receiving vital AF, at a rate of 30 mL an hour, with a goal of 57 mL an hour. We placed the patient on pressure support of 5 CPAP of 5, and stayed in the room to observe her response to the spontaneous breathing trial. Unfortunately, the patient's respiratory rate went up above 40, and a tidal volumes dropped down to 200 range. Her minute volume was quite high, and the patient was placed back on the volume assist control mode. After the failed spontaneous breathing trial, the patient 's tidal volume was dropped down to 350, her FiO2 was decreased to 50%, and the peak level was increased from 5 to 8 cm water. White count is 12.8, hemoglobin 8, hematocrit 23.5, and platelet count 210,000. Blood gases have been reviewed. Sodium 139, potassium 3.6, chlorides 107, CO2 27, anion gap 5, BUN 33, and creatinine 0.64. Chest x-ray shows a right lower lobe infiltrate and my opinion. Progress note dated 07/31/2020 75-year-old female, that was admitted to the hospital on July 21. She went to the operating room on July 27 for a three-vessel bypass grafting with Dr. Alan. The patient has never been extubated and unfortunately, she developed a right cerebellar CVA. She currently remains on the ventilator, on the volume assist control modality. She is on a rate of 16, tidal volume 350, FiO2 50%, and a PEEP of 8. Arterial blood gases show a PaO2 of 76, PaCO2 44, and a pH of 7.4. The patient is getting lactated Ringer's at KVO, amiodarone at 0.5 mg/m, and propofol at 30 mcg/kg/m. In addition, the patient's on vital AF 1.2 at 57, with a goal of 57 mL an hour. Today, we attempted a daily interruption of sedation and a spontaneous breathing trial. As noted yesterday, she failed her trial. Today, we placed her on PSV 8, and CPAP of 5. Currently, she is doing a bit better today. A Dobbhoff tube was placed yesterday. Unfortunately, she appears to be weaker on the right side. The left side she does not move at all. In the end, she may end up with the tracheostomy tube and a ET tube. Yesterday, after the spontaneous breathing trial, the patient unfortunately developed atrial fibrillation with RVR, and that is why the patient is on amiodarone. The patient is seen today 08/01/2020 in follow-up in the intensive care unit. She remains intubated on the mechanical ventilator. Current settings assist- control of with a rate of 16, tidal volume 350, FiO2 50% and a PEEP of 8. Morning blood gases reveal a P O2 of 77, pCO2 of 40, pH 7.47. She remains sedated on propofol at 30 mcg/kg/m. Lactated Ringer's at KVO. She developed atrial fibrillation with rapid ventricular response. She is currently on amiodarone at 0.5 mg/m. She is being nourished with vital HP at 20 ML's per hour which is goal. She was given daily interruption of sedation. She develops A. fib RVR during a spontaneous breathing trials yesterday. We'll trial again today. His chest x-ray continues to show stable diffuse pleuroparenchymal changes. Endotracheal tube and gastric tubes are secured in place. Left-sided chest tube has been removed. PICC line in place. She is status post 1 unit of packed red blood cells this admission. Current hemoglobin 7.1. White count 13.6. Sodium 136. Potassium 3.5. Creatinine 0.55. AST 107. ALT 105. Albumin 2.7. She is continued on DuoNeb inhalations. Heparin for DVT prophylaxis. The patient is seen today 08/02/2020 in follow-up in the intensive care unit. She remains intubated and sedated. Currently on mechanical ventilator assist control mode at a rate of 16. Tidal volume 350. FiO2 40%. PEEP of 8. Morning blood gases reveal a P O2 of 100, pCO2 38, pH 7.49. This is on 50% FiO2. She is currently sedated on propofol at 35 mcg/kg/m. She remains on heparin drip. 0.9 normal saline at 20 ML's per hour. She is being nourished with vital HP 20 ML's per hour which is goal. She was given daily interruption of sedation yesterday she became extremely tachypneic with a respiratory rate in the 40s, not following any commands. Placed back on assist control. Trial again today. She has been having issues with atrial fibrillation. Transitioned to oral amiodarone. Chest x-ray reveals left-sided PICC line in place. Endotracheal and gastric tubes are stable. Vertebral column stimulator in place. There are bilateral infiltrates/pleural effusions. Diffusion interstitial pattern. No pneumothorax. She has received 1 unit of packed red blood cells this admission. Current hemoglobin 7.6. Platelets 387. White count 20.6. Sodium 137. Potassium 3.9. Creatinine 0.50. AST 67. ALT 83. Albumin 2.8. The patient is seen today 08/03/2020 in follow-up in the intensive care unit. Postoperative day #7. She remains intubated and sedated on the mechanical ventilator. Current mode assist control with a rate of 16, tidal been 350, FiO2 40% and a PEEP of 8. Morning blood gases reveal pO2 of 90, pCO2 40, pH 7.49. Currently on propofol at 20 mcg/kg/m. Remains on heparin drip at weight-based p rotocol. Lactated Ringer's at 20 ML's per hour. She is being nourished with vital HP at 28 ML's per hour which is goal. Free water flushes at 30 MLS every 4 hours. Sputum culture pending. White count 20.5. Hemoglobin 7.7. Sodium 139. Potassium 3.9. Creatinine 0.53. AST 70, ALT 80. She remains on DuoNeb inhalations. Chest x-ray reveals good placement of the endotracheal tube and Dobbhoff tubes. Left sided PICC line in place. Bibasilar densities persist. Perihilar increase attenuation noted within the lungs, left hemidiaphragm remains obscured greater than right. Currently afebrile. Hemodynamically stable. Currently in atrial fibrillation with controlled ventricular rate. She responds to painful stimuli on the right. She did sustain an acute bilateral cerebellar ischemic stroke right greater than left as well as a subacute evolving ischemic infarction including the right MCA/TAZ watershed territory with left-sided hemiplegia. She has not tolerated daily interruption of sedation due to her becoming tachypneic, tachycardic and hypertensive. The patient is seen today 08/04/2020 and follow-up in the intensive care unit. Postoperative day #8. She remains intubated and sedated on mechanical ventilator. Current settings assist-control at a rate of 16, tidal volume 350, FiO2 40%, PEEP of 5. Blood gases reveal a P O2 of 81, pCO2 38, pH 7.51. She remains on propofol at 25 mcg/kg/m. Heparin per weight base protocol. Lactated Ringer's at 20 ML's per hour. She is being nourished with vital HP at 20 mL per hour which is goal. She is spontaneously moving her right arm and right leg. Not following any simple commands. She is status post 1 unit of packed red blood cells this admission. Current hemoglobin 6.9. White count 19.4. Sodium 138. Potassium 3.7. Creatinine 0.71. AST 117, ALT 106. Albumin 2.7. She was given a interruption of sedation and spontaneous breathing trial yesterday. She did develop atrial fibrillation with rapid ventricular response with hypertension, tachypnea. Placed back on mechanical ventilator. We'll trial again today. Plan is for possible tracheostomy and PEG tube placements on 08/06/2020. Chest x-ray continues to show cardiomegaly with mild central venous congestion and left greater than right bibasilar acute infiltrates. Small left pleural effusion. No significant change compared to previous. Sputum culture reveals no growth. Blood culture reveals no growth. She remains on bronchodilators, ceftriaxone. The patient is seen today 08/05/2020 in follow-up in the intensive care unit. Postoperative day #9. She remains intubated, sedated on the mechanical ventilator. Assist-control mode at a rate of 16, tidal been 350, FiO2 40% and a PEEP of 5. Morning blood gases reveal a P O2 of 66, pCO2 38, pH 7.4. She remains on a heparin drip or weight base protocol. Lactated Ringer's at 20 ML's per hour. Propofol at 40 mcg/kg/m. She is being nourished with vital HP at 28 ML's per hour which is goal. Chest x-ray reveals evidence of cardiomegaly with moderate central vascular congestion and left basilar small pleural effusion with associated acute infiltrate and/or atelectasis. A bit worse compared to yesterday. She was given Lasix 20 mg IVP 1. Remains on bronchodilators and on ceftriaxone. Repeat sputum culture pending. Status post 2 units of packed red blood cells this admission. White count 16.6. Hemoglobin 7.6. Sodium 137. Potassium 3.7. Creatinine 0.60. AST 142. ALT 156. Albumin 2.6. Glucose 106. Amiodarone was discontinued due to elevated LFTs. Currently rate-controlled atrial fibrillation. Objective - Vital Signs Vital signs: Vital Signs Temp 98.1 F 08/05/20 08:00 Pulse 56 L 08/05/20 11:00 Resp 19 08/05/20 11:00 BP 94/48 08/05/20 11:00 Pulse Ox 96 08/05/20 11:00 Intake & Output 08/04/20 08/05/20 08/05/20 18:59 06:59 18:59 Intake Total 1424.757 946.225 564.205 Output Total 590 990 680 Balance 834.757 -43.775 -115.795 Weight 90.3 kg Intake: IV 290 240 150 Lactated Ringers 1,000 ml 240 240 100 @ 20 mls/hr IV .Q24H [facility] Rx#:[id number] cefTRIAXone 1 gm In 50 50 Sodium Chloride 0.9% 50 ml @ 100 mls/hr IVPB Q24HR [facility] Rx#:[id number] Intake, IV Titration 366.757 280.225 184.205 Amount Heparin Sod,Pork in 0.45% 76.977 161.118 NaCl 25,000 unit In 0.45 % NaCl 1 250ml.bag @ 10. 89 UNITS/KG/HR 9.997 mls/ hr IV .Q24H [facility] Rx#: [id number] levETIRAcetam IV 500 mg 100 100 In Sodium Chloride 0.9% 100 ml @ 400 mls/hr IVPB Q12HR [facility] Rx#:[id number] propofoL 1,000 mg In 62.750 119.107 84.205 Empty Bag 1 bag @ Titrate IV .Q0M [facility] Rx#: [id number] propofoL 500 mg In Empty 127.030 Bag 1 bag @ Titrate IV . Q0M [facility] Rx#:[id number] Tube Feeding 308 336 140 Blood Product 310 Rc Irr As1 Unit 310 [id number] Other 150 90 90 Output: Urine 590 990 680 Other: Voiding Method Indwelling Catheter Indwelling Catheter Indwelling Catheter ABP, PAP, CO, CI - Last Documented Arterial Blood Pressure 113/55 Pulmonary Artery Pressure 40/20 Cardiac Output 4.3 Cardiac Index 2.2 - Exam Intubated, sedated 75-year-old female patient. Poorly responsive, is sedated, and on mechanical ventilation. For the spontaneous breathing trial, the patient was off sedation, is still minimally responsive. HEENT examination is grossly unremarkable. Mucous membranes are moist. There is a orally placed endotracheal tube, and nasogastric tube. Neck supple. Full range of motion. No adenopathy thyromegaly or neck vein distention. Cardiovascular examination reveals an irregular rhythm and rate. S1-S2 normal. No S3 or S4. No discernible murmur noted. Heart sounds are distant. Lungs reveal bilateral rhonchi. No wheezes or crackles. Breath sounds equal bilaterally. Abdomen soft bowel sounds are heard. No masses or tenderness. Extremities are intact. No cyanosis clubbing or edema. Skin is without rash or lesion. Neurologic examination reveals a poorly responsive female, who does not move her left side. - Labs CBC & Chem 7: 08/05/20 03:09 08/05/20 03:09 Labs: Abnormal Lab Results - Last 24 Hours (Table) 08/04/20 08/04/20 08/04/20 Range/Units 13:00 16:03 18:39 WBC 17.4 H (3.8-10.6) k/uL RBC 2.59 L (3.80-5.40) m/uL Hgb 7.7 L (11.4-16.0) gm/dL Hct 24.3 L (34.0-46.0) % Plt Count 471 H (150-450) k/uL Neutrophils # (1.3-7.7) k/uL Eosinophils # (0-0.7) k/uL APTT (22.0-30.0) sec ABG pO2 (83-108) mmHg ABG Total CO2 (19-24) mmol/L ABG O2 Saturation (94-97) % BUN (7-17) mg/dL Glucose (74-99) mg/dL POC Glucose (mg/dL) 122 H (75-99) mg/dL Calcium (8.4-10.2) mg/dL AST (14-36) U/L ALT (4-34) U/L Alkaline Phosphatase (38-126) U/L Total Protein (6.3-8.2) g/dL Albumin (3.5-5.0) g/dL Crossmatch See Detail 08/04/20 08/05/20 08/05/20 Range/Units 23:52 03:09 03:09 WBC 16.6 H (3.8-10.6) k/uL RBC 2.52 L (3.80-5.40) m/uL Hgb 7.6 L (11.4-16.0) gm/dL Hct 23.2 L (34.0-46.0) % Plt Count 508 H (150-450) k/uL Neutrophils # 12.4 H (1.3-7.7) k/uL Eosinophils # 0.9 H (0-0.7) k/uL APTT (22.0-30.0) sec ABG pO2 (83-108) mmHg ABG Total CO2 (19-24) mmol/L ABG O2 Saturation (94-97) % BUN 27 H (7-17) mg/dL Glucose 106 H (74-99) mg/dL POC Glucose (mg/dL) 105 H (75-99) mg/dL Calcium 8.1 L (8.4-10.2) mg/dL AST 142 H (14-36) U/L ALT 156 H (4-34) U/L Alkaline Phosphatase 149 H (38-126) U/L Total Protein 5.0 L (6.3-8.2) g/dL Albumin 2.6 L (3.5-5.0) g/dL Crossmatch 08/05/20 08/05/20 08/05/20 Range/Units 03:09 04:43 11:50 WBC (3.8-10.6) k/uL RBC (3.80-5.40) m/uL Hgb (11.4-16.0) gm/dL Hct (34.0-46.0) % Plt Count (150-450) k/uL Neutrophils # (1.3-7.7) k/uL Eosinophils # (0-0.7) k/uL APTT 40.8 H (22.0-30.0) sec ABG pO2 66 L (83-108) mmHg ABG Total CO2 26 H (19-24) mmol/L ABG O2 Saturation 93.4 L (94-97) % BUN (7-17) mg/dL Glucose (74-99) mg/dL POC Glucose (mg/dL) 118 H (75-99) mg/dL Calcium (8.4-10.2) mg/dL AST (14-36) U/L ALT (4-34) U/L Alkaline Phosphatase (38-126) U/L Total Protein (6.3-8.2) g/dL Albumin (3.5-5.0) g/dL Crossmatch Microbiology - Last 24 Hours (Table) 08/02/20 09:31 Blood Culture - Preliminary Blood No Growth after 72 hours 08/05/20 08:30 Sputum Culture - Preliminary Sputum 08/02/20 12:00 Gram Stain - Final Sputum Sputum Culture - Final Assessment and Plan Assessment: Status post three-vessel bypass grafting. This operative day #9. Now chronic hypoxemic respiratory failure and remains on the ventilator because of her recent ischemic CVA. Postoperative acute/subacute right cerebellar infarct. Left-sided hemiparesis. Leukocytosis of unclear etiology Remote history of non-small cell lung cancer, with previous lobectomy. Prior history of tobacco use. Mild COPD based on PFTs. Family history of premature coronary artery disease. History of hypertension. Peripheral vascular occlusive disease. Degenerative joint disease. Hyperlipidemia. Chronic insomnia. History of postoperative anemia. Plan: The patient was seen and evaluated by Dr. Luong Chest x-ray, ABGs and labs reviewed We will give her another trial of daily interruption of sedation Trial pressure support of 8 CPAP of 5 with weaning parameters Plan is for tracheostomy tube in PEG tube placement tomorrow We'll continue ceftriaxone for 3 days total We will continue to follow and make further recommendations based on her clinical status Critical care time 36 minutes I, the cosigning physician, performed a history & physical examination of the patient. Lungs sounds with bilateral scattered rhonchi. Maintaining good O2 saturations in the 90s on 40% FiO2 and PEEP of 5 via the mechanical ventilator. I discussed the assessment and plan of care with my nurse practitioner, Sierra Feliciano. I attest to the above note as dictated by her.
--- NOTE | 2020-08-05 16:23 | P.PN ---
Subjective Progress Note Date: 08/05/20 08/05/2020: Patient essentially unchanged. Currently on propofol 40 g. With sedation, she moves her right arm slightly, but not consistently. Flaccid on the left side, with some minimal movement with painful stimuli. At present patient is on sedation. 08/03/2020: Patient continues to be encephalopathic, has been off sedation, following some commands as per examination. 08/02/2020: Patient was seen for a follow-up. Patient's son Saurav was also present today. Patient apparently underwent a sedation holiday at noon. By 2 PM her respiration went up to 40, heart rate went up to 160, and she developed atrial fibrillation with rapid ventricular rate. Patient was moving right side well, but no movement left upper extremity. She was moving the right arm, but does not follow commands. She has upward gaze. She is now back on propofol 20 g. She is not tracking, not following commands. 08/01/2020: Patient continues to be on mechanical ventilation. Per nursing report, sedation was decreased from propofol 25 g down to 10 mcg, patient did not improve mentally, but became very tachycardic with respiration going up to 40/m. Therefore she was placed back on high-dose sedation. 07/31/2020: Patient was seen at 10:10 AM. Patient has been off sedation since 9 AM. Patient does open her eyes, but gaze upwards into the right. Pupils are round and reacting. Patient is completely flaccid on the left side. Patient right arm also is flaccid. Very minimal movement of the right leg. 07/30/2020 Patient was seen for initial consultation by Dr. Matt Luong on 07/28/2020. Please refer to his detailed report. This is a follow-up performed. Patient came to the hospital with chest pain, underwent CABG on 07/27/2020. After patient was off sedation, was noted to have left-sided weakness. CT head showed acute right cerebellar infarct and chronic right parietal ischemic infarct. Patient has been severely encephalopathic. Patient is having some abnormal eye movement, for which EEG was performed, which revealed burst and suppression activity likely due to medication effect propofol. There is no focal slowing or obvious epileptiform activity. Clinical correlation is recommended. Patient was placed on Keppra 500 mg twice a day after loading dose of 1000 mg. Patient at present is on propofol 40 g. When the sedation is decreased, patient moves her right arm and right leg spontaneously but non-purposefully. Her left arm is flaccid. She has some movement in the left leg but not as good as the right side. Patient has developed atrial fibrillation with rapid ventricular rate overnight, for which she was started on amiodarone drip. This morning at 10:30 she converted back to normal sinus rhythm. Patient had a repeat CT head performed 07/29/2020, which revealed no significant change. Relatively recent ischemic insult in the right cerebellar hemisphere. No evidence for hemorrhagic transformation. This probably would not explain left hemiparesis as noted on examination by the staff. Patient at present is sedated, therefore examination limited. Objective - Vital Signs Vital signs: Vital Signs Temp 98 F 08/05/20 16:00 Pulse 59 L 08/05/20 16:12 Resp 23 08/05/20 16:12 BP 134/59 08/05/20 16:00 Pulse Ox 97 08/05/20 16:00 Intake & Output 08/04/20 08/05/20 08/05/20 18:59 06:59 18:59 Intake Total 1424.757 917.557 9030.358 Output Total 278 461 2514 Balance 834.757 -43.775 68.358 Weight 90.3 kg Intake: IV 290 240 250 Lactated Ringers 1,000 ml 240 240 200 @ 20 mls/hr IV .Q24H [facility] Rx#:[id number] cefTRIAXone 1 gm In 50 50 Sodium Chloride 0.9% 50 ml @ 100 mls/hr IVPB Q24HR [facility] Rx#:[id number] Intake, IV Titration 366.757 280.225 358.358 Amount Heparin Sod,Pork in 0.45% 76.977 161.118 74.153 NaCl 25,000 unit In 0.45 % NaCl 1 250ml.bag @ 10. 89 UNITS/KG/HR 9.997 mls/ hr IV .Q24H [facility] Rx#: [id number] levETIRAcetam IV 500 mg 100 100 In Sodium Chloride 0.9% 100 ml @ 400 mls/hr IVPB Q12HR [facility] Rx#:[id number] propofoL 1,000 mg In 62.750 119.107 184.205 Empty Bag 1 bag @ Titrate IV .Q0M [facility] Rx#: [id number] propofoL 500 mg In Empty 127.030 Bag 1 bag @ Titrate IV . Q0M [facility] Rx#:[id number] Tube Feeding 308 336 280 Blood Product 310 Rc Irr As1 Unit 310 [id number] Other 150 90 180 Output: Urine 447 859 6451 Other: Voiding Method Indwelling Catheter Indwelling Catheter Indwelling Catheter ABP, PAP, CO, CI - Last Documented Arterial Blood Pressure 113/55 Pulmonary Artery Pressure 40/20 Cardiac Output 4.3 Cardiac Index 2.2 - Exam Examination deferred, as patient is on high-dose propofol. Reviewed with the nurses. - Labs CBC & Chem 7: 08/05/20 03:09 08/05/20 12:15 Labs: Abnormal Lab Results - Last 24 Hours (Table) 08/04/20 08/04/20 08/04/20 Range/Units 13:00 18:39 23:52 WBC 17.4 H (3.8-10.6) k/uL RBC 2.59 L (3.80-5.40) m/uL Hgb 7.7 L (11.4-16.0) gm/dL Hct 24.3 L (34.0-46.0) % Plt Count 471 H (150-450) k/uL Neutrophils # (1.3-7.7) k/uL Eosinophils # (0-0.7) k/uL APTT (22.0-30.0) sec ABG pO2 (83-108) mmHg ABG Total CO2 (19-24) mmol/L ABG O2 Saturation (94-97) % BUN (7-17) mg/dL Glucose (74-99) mg/dL POC Glucose (mg/dL) 105 H (75-99) mg/dL Calcium (8.4-10.2) mg/dL AST (14-36) U/L ALT (4-34) U/L Alkaline Phosphatase (38-126) U/L Total Protein (6.3-8.2) g/dL Albumin (3.5-5.0) g/dL Crossmatch See Detail 08/05/20 08/05/20 08/05/20 Range/Units 03:09 03:09 03:09 WBC 16.6 H (3.8-10.6) k/uL RBC 2.52 L (3.80-5.40) m/uL Hgb 7.6 L (11.4-16.0) gm/dL Hct 23.2 L (34.0-46.0) % Plt Count 508 H (150-450) k/uL Neutrophils # 12.4 H (1.3-7.7) k/uL Eosinophils # 0.9 H (0-0.7) k/uL APTT 40.8 H (22.0-30.0) sec ABG pO2 (83-108) mmHg ABG Total CO2 (19-24) mmol/L ABG O2 Saturation (94-97) % BUN 27 H (7-17) mg/dL Glucose 106 H (74-99) mg/dL POC Glucose (mg/dL) (75-99) mg/dL Calcium 8.1 L (8.4-10.2) mg/dL AST 142 H (14-36) U/L ALT 156 H (4-34) U/L Alkaline Phosphatase 149 H (38-126) U/L Total Protein 5.0 L (6.3-8.2) g/dL Albumin 2.6 L (3.5-5.0) g/dL Crossmatch 08/05/20 08/05/20 08/05/20 Range/Units 04:43 11:50 12:15 WBC (3.8-10.6) k/uL RBC (3.80-5.40) m/uL Hgb (11.4-16.0) gm/dL Hct (34.0-46.0) % Plt Count (150-450) k/uL Neutrophils # (1.3-7.7) k/uL Eosinophils # (0-0.7) k/uL APTT 55.5 H (22.0-30.0) sec ABG pO2 66 L (83-108) mmHg ABG Total CO2 26 H (19-24) mmol/L ABG O2 Saturation 93.4 L (94-97) % BUN (7-17) mg/dL Glucose (74-99) mg/dL POC Glucose (mg/dL) 118 H (75-99) mg/dL Calcium (8.4-10.2) mg/dL AST (14-36) U/L ALT (4-34) U/L Alkaline Phosphatase (38-126) U/L Total Protein (6.3-8.2) g/dL Albumin (3.5-5.0) g/dL Crossmatch Microbiology - Last 24 Hours (Table) 08/05/20 08:30 Gram Stain - Preliminary Sputum Sputum Culture - Preliminary 08/02/20 09:31 Blood Culture - Preliminary Blood No Growth after 72 hours Assessment and Plan Assessment: * Acute bilateral cerebellar ischemic stroke (Right>left), as well as subacute evolving ischemic infarction involving the right MCA/TAZ watershed territory with left hemiplegia. Computed tomography scan also showed subacute left caudate head ischemic infarction. The strokes were noted post CABG 07/27/2020. Patient probably had showers of emboli from cardiac source. Stroke likely cardioembolic. * New onset paroxysmal atrial fibrillation, but now back in sinus rhythm (with amiodarone). * Ventilator-dependent respiratory failure on mechanical ventilation. * Bilateral ICA stenosis > 75% per CTA, however no significant stenosis per carotid Doppler. * Altered mental status probably due to ischemic encephalopathy, with superimposed toxic metabolic causes. * Abnormal EEG with burst suppressed pattern, empirically on Keppra. Patient never had any clinical seizure. * Peripheral arterial disease with history of lower extremity stenting * History of lung cancer status post right lower lobectomy * Anemia * Hypertension * Hyperlipidemia * X tobacco use. Plan: * Probable PEG and track placement on 08/06/2020. * Patient has been started on heparin because of recurrence of atrial fibrillation. Okay to DC Plavix but keep on aspirin because of bilateral ICA stenosis. Patient will be switched to oral anticoagulants after she has undergone PEG and trach placement. * Continue high-dose statins. * As there is no active neurological issue, neurology will sign off, please reconsult neurology if any other concerns.
--- NOTE | 2020-08-05 17:19 | P.PN ---
Subjective Progress Note Date: 08/05/20 CHIEF COMPLAINT: Vent dependent respiratory failure HISTORY OF PRESENT ILLNESS: The patient is a 75-year-old female status post CABG 3 for coronary artery disease. She remains intubated and sedated over 14+ days. No reports of fevers or chills. Nutrition is via tube feeds. ROS: Tolerating tube feeds. History of stroke. PHYSICAL EXAM: VITAL SIGNS: Reviewed CONSTITUTIONAL: Well developed and in no acute distress. EYES: Conjuctivae without sclera icterus. HEAD, EARS, NOSE, THROAT: Moist buccal mucosa. Head is atraumatic, normocephalic. No nasal drainage. NECK: Supple. No thyroidomegaly. RESPIRATORY: Full ventilatory support. Intubated.. Has chest brace. CARDIOVASCULAR: Regular rate. Regular rhythm. ABDOMEN: No peritonitis. MUSCULOSKELETAL: No clubbing. No cyanosis. SKIN: Good skin turgor. Well perfused. NEUROLOGIC: Cranial nerves II through XII grossly intact. No focal or lateralizing signs. PSYCH: Sedated CLINICAL LABS: White blood cell count elevated at 17.4 now down to 16.6 . Hemoglobin low 7.7 now 7.6 ASSESSMENT: 1. Vent dependent respiratory failure 2. Anemia 3. Leukocytosis 4. Coronary artery disease status post CABG PLAN: 1. She has been intubated for over 2 weeks and recommend tracheostomy and gastrostomy tube placement 2. She is elevated risk due to recent coronary artery disease status post CABG Objective - Vital Signs Vital signs: Vital Signs Temp 98 F 08/05/20 16:00 Pulse 62 08/05/20 17:00 Resp 26 H 08/05/20 17:00 BP 116/50 08/05/20 17:00 Pulse Ox 96 08/05/20 17:00 Intake & Output 08/04/20 08/05/20 08/05/20 18:59 06:59 18:59 Intake Total 1424.757 860.873 8283.257 Output Total 520 614 7151 Balance 834.757 -43.775 118.257 Weight 90.3 kg Intake: IV 290 240 270 Lactated Ringers 1,000 ml 240 240 220 @ 20 mls/hr IV .Q24H [facility] Rx#:[id number] cefTRIAXone 1 gm In 50 50 Sodium Chloride 0.9% 50 ml @ 100 mls/hr IVPB Q24HR [facility] Rx#:[id number] Intake, IV Titration 366.757 280.225 400.257 Amount Heparin Sod,Pork in 0.45% 76.977 161.118 74.153 NaCl 25,000 unit In 0.45 % NaCl 1 250ml.bag @ 10. 89 UNITS/KG/HR 9.997 mls/ hr IV .Q24H [facility] Rx#: [id number] levETIRAcetam IV 500 mg 100 100 In Sodium Chloride 0.9% 100 ml @ 400 mls/hr IVPB Q12HR [facility] Rx#:[id number] propofoL 1,000 mg In 62.750 119.107 226.104 Empty Bag 1 bag @ Titrate IV .Q0M [facility] Rx#: [id number] propofoL 500 mg In Empty 127.030 Bag 1 bag @ Titrate IV . Q0M [facility] Rx#:[id number] Tube Feeding 308 336 308 Blood Product 310 Rc Irr As1 Unit 310 [id number] Other 150 90 180 Output: Urine 243 920 0847 Other: Voiding Method Indwelling Catheter Indwelling Catheter Indwelling Catheter ABP, PAP, CO, CI - Last Documented Arterial Blood Pressure 113/55 Pulmonary Artery Pressure 40/20 Cardiac Output 4.3 Cardiac Index 2.2 - Labs CBC & Chem 7: 08/14/20 03:29 08/14/20 08:41 Labs: Abnormal Lab Results - Last 24 Hours (Table) 08/04/20 08/04/20 08/05/20 Range/Units 18:39 23:52 03:09 WBC 17.4 H 16.6 H (3.8-10.6) k/uL RBC 2.59 L 2.52 L (3.80-5.40) m/uL Hgb 7.7 L 7.6 L (11.4-16.0) gm/dL Hct 24.3 L 23.2 L (34.0-46.0) % Plt Count 471 H 508 H (150-450) k/uL Neutrophils # 12.4 H (1.3-7.7) k/uL Eosinophils # 0.9 H (0-0.7) k/uL APTT (22.0-30.0) sec ABG pO2 (83-108) mmHg ABG Total CO2 (19-24) mmol/L ABG O2 Saturation (94-97) % BUN (7-17) mg/dL Glucose (74-99) mg/dL POC Glucose (mg/dL) 105 H (75-99) mg/dL Calcium (8.4-10.2) mg/dL AST (14-36) U/L ALT (4-34) U/L Alkaline Phosphatase (38-126) U/L Total Protein (6.3-8.2) g/dL Albumin (3.5-5.0) g/dL 08/05/20 08/05/20 08/05/20 Range/Units 03:09 03:09 04:43 WBC (3.8-10.6) k/uL RBC (3.80-5.40) m/uL Hgb (11.4-16.0) gm/dL Hct (34.0-46.0) % Plt Count (150-450) k/uL Neutrophils # (1.3-7.7) k/uL Eosinophils # (0-0.7) k/uL APTT 40.8 H (22.0-30.0) sec ABG pO2 66 L (83-108) mmHg ABG Total CO2 26 H (19-24) mmol/L ABG O2 Saturation 93.4 L (94-97) % BUN 27 H (7-17) mg/dL Glucose 106 H (74-99) mg/dL POC Glucose (mg/dL) (75-99) mg/dL Calcium 8.1 L (8.4-10.2) mg/dL AST 142 H (14-36) U/L ALT 156 H (4-34) U/L Alkaline Phosphatase 149 H (38-126) U/L Total Protein 5.0 L (6.3-8.2) g/dL Albumin 2.6 L (3.5-5.0) g/dL 08/05/20 08/05/20 Range/Units 11:50 12:15 WBC (3.8-10.6) k/uL RBC (3.80-5.40) m/uL Hgb (11.4-16.0) gm/dL Hct (34.0-46.0) % Plt Count (150-450) k/uL Neutrophils # (1.3-7.7) k/uL Eosinophils # (0-0.7) k/uL APTT 55.5 H (22.0-30.0) sec ABG pO2 (83-108) mmHg ABG Total CO2 (19-24) mmol/L ABG O2 Saturation (94-97) % BUN (7-17) mg/dL Glucose (74-99) mg/dL POC Glucose (mg/dL) 118 H (75-99) mg/dL Calcium (8.4-10.2) mg/dL AST (14-36) U/L ALT (4-34) U/L Alkaline Phosphatase (38-126) U/L Total Protein (6.3-8.2) g/dL Albumin (3.5-5.0) g/dL Microbiology - Last 24 Hours (Table) 08/05/20 08:30 Gram Stain - Preliminary Sputum Sputum Culture - Preliminary 08/02/20 09:31 Blood Culture - Preliminary Blood No Growth after 72 hours Assessment and Plan (1) Anemia Status: Acute Code(s): D64.9 - ANEMIA, UNSPECIFIED SNOMED Code(s): 830193970 (2) Congestive heart failure Status: Acute Code(s): I50.9 - HEART FAILURE, UNSPECIFIED SNOMED Code(s): 91332739 (3) Respiratory failure Status: Acute Code(s): J96.90 - RESPIRATORY FAILURE, UNSP, UNSP W HYPOXIA OR HYPERCAPNIA SNOMED Code(s): 513183893 (4) Status post aorto-coronary artery bypass graft Status: Acute Code(s): Z95.1 - PRESENCE OF AORTOCORONARY BYPASS GRAFT SNOMED Code(s): 563746161
[2020-08-05 17:33] LABS: Glucose,Whole Blood 117 mg/dL (75-99)
--- NOTE | 2020-08-05 19:02 | P.PN ---
Subjective 08/03/2020 This is a pleasant 75-year-old patient of Dr. Derrick Neal. Chronic stable medical conditions include COPD, hyperlipidemia, hypertension, ostial arthritis, lung cancer 6 years ago, peripheral artery disease, coronary artery stent, perip heral stents, anxiety depression. Patient presented after she was having central chest pressure at home then went to both the shoulder blades for the arms. Admitted with unstable angina. underwent cardiac catheterization. Found to have severe triple-vessel coronary artery disease. Pulmonary team evaluated the patient and told her low risk for surgery. July 27-underwent coronary bypass 3, ligation of left atrial appendage. Patient received a unit of blood.postsurgery was found to have weakness on the left side.stroke was noted on the computed tomography scan. Including lacunar infarct.patient has been in and out of atrial fibrillation. computed tomography scan of the brain reviewed by Dr. Carrion: Acute bilateral cerebellar ischemic stroke as well as subacute evolving ischemic infarction involving the right MCA/TAZ watershed territory left caudate head ischemic infarction. Stanley to be embolic. ICU-ventilator , has NG tube Today she remains in the ICU intubated and sedated with pulmonary/critical care team following her closely. And help with vent management. Her breathing rate is around 28, blood pressure 149/77, she is a slightly tachycardiac 95-120. Afebrile for 24 hours. Labs showed leukocytosis of 22.5, hemoglobin 7.7. BMP is unremarkable. Liver enzymes mildly elevated. Glucose is controlled. Patient evaluated by surgery team for PEG tube placement on 08/06, with coinciding take his replacement patient is undergoing sedation holiday by pulmonary team Sputum culture is growing gram-positive cocci and antibiotics were initiated by pulmonary team, currently she is on ceftriaxone Medication included heparin drip, Keppra and amiodarone 08/04/2020 Patient remains intubated and sedated in the ICU with pulmonary/critical care team monitor the patient closely. And help with event management. She still underwent going sedation a trial with poor response, probably related to her general condition and multiple cerebral infarcts involving the right MCA and TAZ. Surgical team to evaluate the patient for possible tracheostomy and PEG tube per pulmonary/critical care team recommendation possibly on Sunday 08/06 Patient is with low-grade fever today at 100.4, vitals looks stable WBC trended down slowly to 17.4 K. Hemoglobin 7.7. Compared to 6.9 yesterday, patient is status post blood transfusion BMP is unremarkable. Sugar control. Bilirubin is normal, liver enzymes slightly elevated. Patient currently on Rocephin . She is on Keppra and heparin drip. patient is followed closely by cardiology and cardiothoracic surgery team. Neurology team already evaluated the patient 08/05/2020 Patient remains intubated and sedated in the ICU with pulmonary/critical care team monitor the patient closely. And help with event management. She still undergoing sedation trial by pulmonary team with poor response and they recommended tracheostomy and PEG tube to be performed by surgery team tomorrow. Other than that continue with supportive care Neurology evaluated the patient today and recommended to continue with anticoagulation for her A. fib and stroke together with aspirin for her bilateral internal carotid artery stenosis but can stop Plavix Gastrointestinal persistent leukocytosis of 16.6 and currently patient is on ceftriaxone by the pulmonary team, BMP, electrolytes, creatinine and mildly elevated liver enzymes remain stable. Prognosis is guarded Review of systems: N/a Active Medications Generic Name Dose Route Start Last Admin Trade Name Freq PRN Reason Stop Dose Admin Hydrocodone Bitart/Acetaminophen 1 each 07/28/20 01:54 08/02/20 11:14 Hydrocodone/Apap 5-325mg 1 Each Tab PO 1 each Q4HR PRN Administration Moderate Pain Albuterol/Ipratropium 3 ml 07/27/20 14:15 Ipratropium-Albuterol 3 Ml Neb INHALATION RT-Q2H PRN Shortness Of Breath Or Wheezing Albuterol/Ipratropium 3 ml 08/04/20 12:00 08/05/20 16:12 Ipratropium-Albuterol 3 Ml Neb INHALATION 3 ml RT-Q4H INÉS Administration Aspirin 81 mg 08/02/20 09:00 08/05/20 08:30 Aspirin 81 Mg PO 81 mg DAILY INÉS Administration Atorvastatin Calcium 80 mg 07/21/20 21:00 08/04/20 20:46 Atorvastatin 80 Mg Tab PO 80 mg HS INÉS Administration Benzocaine/Menthol 1 each 07/27/20 14:15 Benzocaine/Menthol Lozeng 1 Each Lozenge MUCOUS MEM Q2H PRN Sore Throat Bisacodyl 10 mg 07/28/20 09:00 08/04/20 08:47 Bisacodyl 10 Mg Supp RECTAL 10 mg DAILY PRN Administration Constipation Chlorhexidine Gluconate 15 ml 07/31/20 21:00 08/05/20 08:31 Chlorhexidine Gluconate 15 Ml Cup MUCOUS MEM 15 ml BID INÉS Administration Ezetimibe 10 mg 07/21/20 21:00 08/04/20 20:46 Ezetimibe 10 Mg Tab PO 10 mg HS INÉS Administration Heparin Sodium (Porcine) 0 unit 08/02/20 08:29 08/03/20 08:21 Heparin Sodium,Porcine 5,000 Unit/Ml 1 Ml Vial IV 08/06/20 04:00 4,550 unit PER PROTOCOL PRN Administration Low PTT Protocol Lactated Ringer's 1,000 mls @ 20 mls/hr 07/27/20 14:15 08/05/20 01:47 Lactated Ringers IV 20 mls/hr .Q24H INÉS Administration Calcium Gluconate 2 gm/ Sodium 120 mls @ 100 mls/hr 07/27/20 14:15 Chloride IVPB 08/06/20 14:16 ONCE PRN Ionized Calcium less than 4.4 Levetiracetam 500 mg/ Sodium 105 mls @ 400 mls/hr 07/29/20 21:00 08/05/20 08:31 Chloride IVPB 400 mls/hr Q12HR INÉS Administration Heparin Sodium/Sodium Chloride 250 mls @ 9.997 mls/hr 08/02/20 08:30 08/05/20 12:06 25,000 unit/ Sodium Chloride IV 12.89 units/kg/hr .Q24H INÉS 11.833 mls/hr Administration Protocol 10.89 UNITS/KG/HR Ceftriaxone Sodium 1 gm/ 50 mls @ 100 mls/hr 08/03/20 10:30 08/05/20 08:31 Sodium Chloride IVPB 100 mls/hr Q24HR INÉS Administration Propofol 1,000 mg/ IV Solution 100 mls @ 0 mls/hr 08/04/20 16:00 08/05/20 18:24 IV 50 mcg/kg/min .Q0M INÉS 27.09 mls/hr Administration Protocol Titrate Potassium Chloride/Dextrose/Sod Cl 1,000 mls @ 40 mls/hr 08/06/20 00:00 D5%-1/2ns-Kcl 20 Meq/L Iv Solution IV .Q24H INÉS Insulin Aspart 0 unit 08/05/20 12:00 08/05/20 17:39 Insulin Aspart (Novolog) 100 Unit/Ml Vial SQ Not Given Q6HR INÉS Protocol Magnesium Hydroxide 2,400 mg 07/28/20 09:00 Magnesium Hydroxide 2,400 Mg/10 Ml Cup PO BID PRN Constipation Metoclopramide HCl 10 mg 07/27/20 14:15 Metoclopramide 5 Mg/Ml 2 Ml Vial IVP Q4H PRN Nausea And Vomiting Metoprolol Tartrate 25 mg 08/03/20 09:00 08/05/20 15:53 Metoprolol Tartrate 25 Mg Tab PO 25 mg TID INÉS Administration Miscellaneous Information 1 each 07/27/20 14:15 Potassium Replacement Protocol 1 Each Misc MISCELLANE DAILY PRN Per Protocol Protocol Miscellaneous Information 1 each 07/27/20 14:15 Magnesium Replacement Protocol 1 Each Misc MISCELLANE DAILY PRN Per Protocol Protocol Miscellaneous Information 1 each 07/27/20 14:15 Phosphorus Replacement Protoco 1 Each Misc MISCELLANE DAILY PRN Per Protocol Protocol Miscellaneous Information 1 each 08/05/20 04:27 Potassium Replacement Protocol 1 Each Misc MISCELLANE DAILY PRN Per Protocol Protocol Ondansetron HCl 4 mg 07/27/20 14:15 Ondansetron 4 Mg/2 Ml Vial IVP Q6HR PRN Nausea And Vomiting Pantoprazole Sodium 40 mg 07/28/20 09:00 08/05/20 08:30 Pantoprazole 40 Mg/10 Ml Vial IVP 40 mg DAILY INÉS Administration Senna/Docusate Sodium 2 each 07/28/20 21:00 08/04/20 20:46 Sennosides-Docusate Sodium 1 Each Tab PO 2 each HS INÉS Administration Sertraline HCl 100 mg 07/21/20 09:00 08/05/20 08:30 Sertraline 100 Mg Tab PO 100 mg DAILY INÉS Administration Sodium Chloride 10 ml 07/27/20 21:00 08/05/20 08:31 Sodium Chloride 0.9% Flush 10 Ml Syringe IV 10 ml BID INÉS Administration Objective - Vital Signs Vital signs: Vital Signs Temp 98 F 08/05/20 16:00 Pulse 61 08/05/20 18:00 Resp 19 08/05/20 18:00 BP 116/55 08/05/20 18:00 Pulse Ox 95 08/05/20 18:00 Intake & Output 08/04/20 08/05/20 08/05/20 18:59 06:59 18:59 Intake Total 1424.757 686.572 7949.217 Output Total 712 389 4284 Balance 834.757 -43.775 139.217 Weight 90.3 kg Intake: IV 290 240 290 Lactated Ringers 1,000 ml 240 240 240 @ 20 mls/hr IV .Q24H INÉS Rx#:[id number] cefTRIAXone 1 gm In 50 50 Sodium Chloride 0.9% 50 ml @ 100 mls/hr IVPB Q24HR INÉS Rx#:[id number] Intake, IV Titration 366.757 280.225 433.217 Amount Heparin Sod,Pork in 0.45% 76.977 161.118 74.153 NaCl 25,000 unit In 0.45 % NaCl 1 250ml.bag @ 10. 89 UNITS/KG/HR 9.997 mls/ hr IV .Q24H INÉS Rx#: [id number] levETIRAcetam IV 500 mg 100 100 In Sodium Chloride 0.9% 100 ml @ 400 mls/hr IVPB Q12HR INÉS Rx#:[id number] propofoL 1,000 mg In 62.750 119.107 259.064 Empty Bag 1 bag @ Titrate IV .Q0M INÉS Rx#: [id number] propofoL 500 mg In Empty 127.030 Bag 1 bag @ Titrate IV . Q0M INÉS Rx#:[id number] Tube Feeding 308 336 336 Blood Product 310 Rc Irr As1 Unit 310 [id number] Other 150 90 180 Output: Urine 467 627 6640 Other: Voiding Method Indwelling Catheter Indwelling Catheter Indwelling Catheter ABP, PAP, CO, CI - Last Documented Arterial Blood Pressure 113/55 Pulmonary Artery Pressure 40/20 Cardiac Output 4.3 Cardiac Index 2.2 - Exam -GENERAL: The patient is intubated and sedated HEENT: Pupils are round and equally reacting to light. EOMI. No scleral icterus. No conjunctival pallor. Normocephalic, atraumatic. No pharyngeal erythema. No thyromegaly. CARDIOVASCULAR: S1 and S2 present. No murmurs, rubs, or gallops. PULMONARY: Chest is clear to auscultation, no wheezing or crackles. ABDOMEN: Soft, nontender, nondistended, normoactive bowel sounds. No palpable organomegaly. MUSCULOSKELETAL: No joint swelling or deformity. EXTREMITIES: No cyanosis, clubbing, or pedal edema. NEUROLOGICAL: Gross neurological examination did not reveal any focal deficits. SKIN: No rashes. no petechiae. - Labs CBC & Chem 7: 08/05/20 03:09 08/05/20 12:15 Labs: Abnormal Lab Results - Last 24 Hours (Table) 08/04/20 08/04/20 08/05/20 Range/Units 18:39 23:52 03:09 WBC 17.4 H 16.6 H (3.8-10.6) k/uL RBC 2.59 L 2.52 L (3.80-5.40) m/uL Hgb 7.7 L 7.6 L (11.4-16.0) gm/dL Hct 24.3 L 23.2 L (34.0-46.0) % Plt Count 471 H 508 H (150-450) k/uL Neutrophils # 12.4 H (1.3-7.7) k/uL Eosinophils # 0.9 H (0-0.7) k/uL APTT (22.0-30.0) sec ABG pO2 (83-108) mmHg ABG Total CO2 (19-24) mmol/L ABG O2 Saturation (94-97) % BUN (7-17) mg/dL Glucose (74-99) mg/dL POC Glucose (mg/dL) 105 H (75-99) mg/dL Calcium (8.4-10.2) mg/dL AST (14-36) U/L ALT (4-34) U/L Alkaline Phosphatase (38-126) U/L Total Protein (6.3-8.2) g/dL Albumin (3.5-5.0) g/dL 08/05/20 08/05/20 08/05/20 Range/Units 03:09 03:09 04:43 WBC (3.8-10.6) k/uL RBC (3.80-5.40) m/uL Hgb (11.4-16.0) gm/dL Hct (34.0-46.0) % Plt Count (150-450) k/uL Neutrophils # (1.3-7.7) k/uL Eosinophils # (0-0.7) k/uL APTT 40.8 H (22.0-30.0) sec ABG pO2 66 L (83-108) mmHg ABG Total CO2 26 H (19-24) mmol/L ABG O2 Saturation 93.4 L (94-97) % BUN 27 H (7-17) mg/dL Glucose 106 H (74-99) mg/dL POC Glucose (mg/dL) (75-99) mg/dL Calcium 8.1 L (8.4-10.2) mg/dL AST 142 H (14-36) U/L ALT 156 H (4-34) U/L Alkaline Phosphatase 149 H (38-126) U/L Total Protein 5.0 L (6.3-8.2) g/dL Albumin 2.6 L (3.5-5.0) g/dL 08/05/20 08/05/20 08/05/20 Range/Units 11:50 12:15 17:32 WBC (3.8-10.6) k/uL RBC (3.80-5.40) m/uL Hgb (11.4-16.0) gm/dL Hct (34.0-46.0) % Plt Count (150-450) k/uL Neutrophils # (1.3-7.7) k/uL Eosinophils # (0-0.7) k/uL APTT 55.5 H (22.0-30.0) sec ABG pO2 (83-108) mmHg ABG Total CO2 (19-24) mmol/L ABG O2 Saturation (94-97) % BUN (7-17) mg/dL Glucose (74-99) mg/dL POC Glucose (mg/dL) 118 H 117 H (75-99) mg/dL Calcium (8.4-10.2) mg/dL AST (14-36) U/L ALT (4-34) U/L Alkaline Phosphatase (38-126) U/L Total Protein (6.3-8.2) g/dL Albumin (3.5-5.0) g/dL Microbiology - Last 24 Hours (Table) 08/05/20 08:30 Gram Stain - Preliminary Sputum Sputum Culture - Preliminary 08/02/20 09:31 Blood Culture - Preliminary Blood No Growth after 72 hours Assessment and Plan Assessment: Triple vessel coronary artery disease, status post bypass surgery on 07/27 Acute bilateral cerebellar ischemic stroke as well as subacute evolving ischemic infarction involving the right MCA/TAZ watershed territory left caudate head ischemic infarction. Stanley to be embolic./post surgical, with left hemiparesis Paroxysmal atrial fibrillation.in and out of rapid atrial fibrillation Acute hypoxic respiratory failure needing mechanical ventilation Possible ischemic encephalopathy with toxic encephalopathy Unstable angina secondary to above, currently patient with no chest pain Possible respiratory infection with sputum culture, gram-positive cocci Pulmonary emphysema with fibrotic changes in the right lower lung History of lung cancer status post surgical resection Hypertension Peripheral vascular disease Hyperlipidemia Osteoarthritis Plan: This is a pleasant 75 years old female with triple-vessel coronary artery disease. Cardiothoracic surgery on the case and workup is was done prior to surgical intervention, pulmonary evaluated the patient preoperatively and she was low risk. Patient was on heparin drip prior to surgery but with cardiology were following case closely. Patient completed by stroke and neurology evaluated the patient and recommended to continue with anticoagulation and aspirin both Plavix can be stopped. patient failed sedation trial and she is planned for tracheostomy and PEG tube placement Continue with aspirin, statin and metoprolol, continue with Keppra per Neurologist Patient is going for PEG tube placement and tracheostomy on 08/15 per recommenda tion of pulmonary and surgical teams Continue with anticoagulation per [employer] recommendation Several consultants of the case including neurologist, engineering production worker, pulmonary/critical care team decides to the cardiothoracic surgical and Gen. surgical teams and she will follow the recommendations Labs and medication were reviewed.. Continue same treatment. Continue with symptomatic treatment. Resume home medication. Monitor lytes and vitals. DVT and GI prophylaxis. Further recommendations as per clinical course of the patient DVT prophylaxis: heparin GI Prophylaxis: Ppi Prognosis is guarded
[2020-08-05] MEDS: SENNOSIDES-DOCUSATE SODIUM 1 EACH TAB PO SCH (21:12)
[2020-08-05] MEDS: ATORVASTATIN 80 MG TAB PO SCH (21:13)
[2020-08-05] MEDS: EZETIMIBE 10 MG TAB PO SCH (21:13)
[2020-08-06 00:01] LABS: Glucose,Whole Blood 111 mg/dL (75-99)
[2020-08-06] MEDS: IPRATROPIUM-ALBUTEROL 3 ML NEB INHALATION SCH ×7 (00:20→23:47)
[2020-08-06] MEDS: D5-0.45% NACL WITH KCL 20MEQ/L 1,000 ML IV SCH ×3 (00:45→23:26)
[2020-08-06] MEDS: INSULIN ASPART (NovoLOG) 100 UNIT/ML VIAL SQ SCH ×4 (00:45→18:32)
[2020-08-06] MEDS: LACTATED RINGERS 1,000 ML IV SCH (02:22)
[2020-08-06 04:24] LABS: Basophils # (A) 0.1 k/uL (0-0.2); Basophils % (A) 1 %; Eosinophils % (A) 6 %; HCT 22.6 % (34.0-46.0); HGB 7.3 gm/dL (11.4-16.0); Hypochromasia Slight; Lymphocytes # (A) 2.2 k/uL (1.0-4.8); Lymphocytes % (A) 12 %; MCH 29.8 pg (25.0-35.0); MCHC 32.2 g/dL (31.0-37.0); MCV 92.7 fL (80.0-100.0); Mean Platelet Volume 8.5; Monocytes # (A) 1.2 k/uL (0-1.0); Monocytes % (A) 6 %; Neutrophils # (A) 13.4 k/uL (1.3-7.7); Neutrophils % (A) 75 %; Platelet Count 477 k/uL (150-450); Poikilocytosis Slight; RBC 2.44 m/uL (3.80-5.40); RDW 14.6 % (11.5-15.5)
[2020-08-06 04:50] LABS: ALT 135 U/L (4-34); AST 94 U/L (14-36); African American GFR (CKD) >90 (>60 ml/min/1.73 sqM); Albumin 2.7 g/dL (3.5-5.0); Alkaline Phosphatase 147 U/L (38-126); Anion Gap 7 mmol/L; Blood Urea Nitrogen 23 mg/dL (7-17); Calcium 8.2 mg/dL (8.4-10.2); Carbon Dioxide 23 mmol/L (22-30); Chloride 107 mmol/L (98-107); Glucose 98 mg/dL (74-99); Non-African American GFR(CKD) >90 (>60 ml/min/1.73 sqM); Potassium 4.1 mmol/L (3.5-5.1); Sodium 137 mmol/L (137-145); Total Bilirubin 0.5 mg/dL (0.2-1.3); Total Protein 5.1 g/dL (6.3-8.2)
[2020-08-06 05:19] LABS: Allen Test Performed? Yes
[2020-08-06 05:20] LABS: ABG Base Excess -0.7 mmol/L; ABG HCO3 24 mmol/L (21-25); ABG Oxygen Saturation 94.5 % (94-97); ABG PCO2 40 mmHg (35-45); ABG PH 7.39 (7.35-7.45); ABG PO2 71 mmHg (83-108); ABG TCO2 25 mmol/L (19-24)
--- NOTE | 2020-08-06 06:56 | P.PN ---
Subjective Progress Note Date: 08/06/20 Coronary artery disease status post coronary artery bypass grafting Patient was reevaluated today on 07/28/2020, remains intubated and mechanically ventilated. Patient is now on assist control mode of mechanical ventilation with a rate of 16, volume is 450 FiO2 is 50% and PEEP of 5. Unfortunately the patient was noted to have poor movement of her left upper and left lower ex tremity last night, CT of the head last night showed acute/subacute area of infarction in the right cerebellum along with probable area of chronic infarction in the right parietal region I evaluated the patient this morning, seems to be extremely restless and agitated, seems to be neglecting the left side, and both eyes are deviated to the right and upwards. Patient seems to be moving her right side quite well, however the left side seems to be relatively weak although she was squeezing my hand with her left hand. And minimal movement noted in the left lower extremity. Patient is on Precedex, and seems to be agitated in spite of Precedex. Her ventilatory settings are reasonable, ABG is reasonable, patient is basically extubate overall, however her mental status is a bit concerning specially with her extreme agitation, keeps pulling and shaking the railing of the bed on the right side. Patient was given Ativan, and I have recommended increasing Precedex. She is not truly quite ready to be extubated today. Again my major concern is her mental status. And she is yet to be seen by neurology on consultation. Blood pressure is quite high, 160 systolic, norepinephrine was discontinued during my evaluation. She was on a very minimal dose of 0.1 mcg/kg/m of norepinephrine patient was also on milrinone. CBC is relatively normal hemoglobin is 7.4. ABG this morning showed a pO2 of 92 pCO2 of 38 pH of 7.45. This was on 50% FiO2. Electrolytes and renal profile are normal. Chest x-ray showed mostly postoperative changes of CABG 07/29/2020, I'm seeing the patient for a follow-up in the intensive care unit. This morning the patient is heavily sedated with propofol and she is calm and comfortable. Unfortunately with that, neurologic examination is not possible. I would suggest gradually cutting down the propofol and assess her neuro status and if needed utilize Precedex as an alternative sedative drip. Meanwhile, the patient remains essentially with enema to severe with a low dose of norepinephrine infusion running at 0.06 mcg/kg per minute. She has an adequate urine output. Cardiac rhythm is sinus. She has a left pleural and mediastinal chest tubes and output from those are in order of minimal, less than 100 over the past 24 hours. The chest x-ray showing cardiomegaly. There is some kyphoscoliosis of the chest. Chest tubes are in good location. ET tube is in good location. Atelectatic changes and some mild four-vessel congestion. Meanwhile, the patient's vent settings include an assist-control mode at the rate of 16 with a tidal volume of 450 and FiO2 of 40% with a PEEP of 5. The blood gases from this morning showed a pH of 7.49 with a pCO2 of 36 and pO2 of 82. On today's blood work, the patient's hemoglobin is down to 6.9 from 7.4. Platelets is at 210. 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 Intracranial cerebral arteries were essentially patent with nothing significantly stenotic. During our limited neurologic evaluation, the patient did not do mistreat any withdrawal with to painful stimulation. No Babinski. No clonus. Nevertheless, I was told by the nursing staff that she was able to move her right side yesterday and her left side once off sedation. Pupils are equal and reactive to light and order of 3 mm. No preferential gaze on today's evaluation. A sedation holiday will be given. She is on enteral nutrition. No other drips. No seizure activity. Neurologist on the case. She is on aspirin, Plavix, and she also on metoprolol 12.5 mg by mouth twice a day. She is also on high-dose statins. Progress note dated 05/29/2021. Currently, this is a 75-year-old female who was admitted to the hospital on July 21. She went to the operating room, on July 27 for a three-vessel bypass grafting with Dr. Alan. The patient has never been extubated. Unfortunately, she developed a right cerebellar CVA. She remains on the mechanical ventilator. She is currently on the volume assist control mode, rate is 16, tidal volume 400, FiO2 60%, and PEEP of 5. The blood gases show a PaO2 of 99, a PaCO2 of 40, and a pH of 7.44. She also remains on lactated Ringer's at 20 mL an hour, propofol was turned off for the spontaneous breathing trial, and she's been weaned off of norepinephrine. She is receiving vital AF, at a rate of 30 mL an hour, with a goal of 57 mL an hour. We placed the patient on pressure support of 5 CPAP of 5, and stayed in the room to observe her response to the spontaneous breathing trial. Unfortunately, the patient's respiratory rate went up above 40, and a tidal volumes dropped down to 200 range. Her minute volume was quite high, and the patient was placed back on the volume assist control mode. After the failed spontaneous breathing trial, the patient's tidal volume was dropped down to 350, her FiO2 was decreased to 50%, and the peak level was increased from 5 to 8 cm water. White count is 12.8, hemoglobin 8, hematocrit 23.5, and platelet count 210,000. Blood gases have been reviewed. Sodium 139, potassium 3.6, chlorides 107, CO2 27, anion gap 5, BUN 33, and creatinine 0.64. Chest x-ray shows a right lower lobe infiltrate and my opinion. Progress note dated 07/31/2020 75-year-old female, that was admitted to the hospital on July 21. She went to the operating room on July 27 for a three-vessel bypass grafting with Dr. Alan. The patient has never been extubated and unfortunately, she developed a right cerebellar CVA. She currently remains on the ventilator, on the volume assist control modality. She is on a rate of 16, tidal volume 350, FiO2 50%, and a PEEP of 8. Arterial blood gases show a PaO2 of 76, PaCO2 44, and a pH of 7.4. The patient is getting lactated Ringer's at KVO, amiodarone at 0.5 mg/m, and propofol at 30 mcg/kg/m. In addition, the patient's on vital AF 1.2 at 57, with a goal of 57 mL an hour. Today, we attempted a daily interruption of sedation and a spontaneous breathing trial. As noted yesterday, she failed her trial. Today, we placed her on PSV 8, and CPAP of 5. Currently, she is doing a bit better today. A Dobbhoff tube was placed yesterday. Unfortunately, she appears to be weaker on the right side. The left side she does not move at all. In the end, she may end up with the tracheostomy tube and a ET tube. Yesterday, after the spontaneous breathing trial, the patient unfortunately developed atrial fibrillation with RVR, and that is why the patient is on amiodarone. The patient is seen today 08/01/2020 in follow-up in the intensive care unit. She remains intubated on the mechanical ventilator. Current settings assist- control of with a rate of 16, tidal volume 350, FiO2 50% and a PEEP of 8. Morning blood gases reveal a P O2 of 77, pCO2 of 40, pH 7.47. She remains sedated on propofol at 30 mcg/kg/m. Lactated Ringer's at KVO. She developed atrial fibrillation with rapid ventricular response. She is currently on amiodarone at 0.5 mg/m. She is being nourished with vital HP at 20 ML's per hour which is goal. She was given daily interruption of sedation. She develops A. fib RVR during a spontaneous breathing trials yesterday. We'll trial again today. His chest x-ray continues to show stable diffuse pleuroparenchymal changes. Endotracheal tube and gastric tubes are secured in place. Left-sided chest tube has been removed. PICC line in place. She is status post 1 unit of packed red blood cells this admission. Current hemoglobin 7.1. White count 13.6. Sodium 136. Potassium 3.5. Creatinine 0.55. AST 107. ALT 105. Albumin 2.7. She is continued on DuoNeb inhalations. Heparin for DVT prophylaxis. The patient is seen today 08/02/2020 in follow-up in the intensive care unit. She remains intubated and sedated. Currently on mechanical ventilator assist control mode at a rate of 16. Tidal volume 350. FiO2 40%. PEEP of 8. Morning blood gases reveal a P O2 of 100, pCO2 38, pH 7.49. This is on 50% FiO2. She is currently sedated on propofol at 35 mcg/kg/m. She remains on heparin drip. 0.9 normal saline at 20 ML's per hour. She is being nourished with vital HP 20 ML's per hour which is goal. She was given daily interruption of sedation yest erday she became extremely tachypneic with a respiratory rate in the 40s, not following any commands. Placed back on assist control. Trial again today. She has been having issues with atrial fibrillation. Transitioned to oral amiodarone. Chest x-ray reveals left-sided PICC line in place. Endotracheal and gastric tubes are stable. Vertebral column stimulator in place. There are bilateral infiltrates/pleural effusions. Diffusion interstitial pattern. No pneumothorax. She has received 1 unit of packed red blood cells this admission. Current hemoglobin 7.6. Platelets 387. White count 20.6. Sodium 137. Potassium 3.9. Creatinine 0.50. AST 67. ALT 83. Albumin 2.8. The patient is seen today 08/03/2020 in follow-up in the intensive care unit. Postoperative day #7. She remains intubated and sedated on the mechanical ventilator. Current mode assist control with a rate of 16, tidal been 350, FiO2 40% and a PEEP of 8. Morning blood gases reveal pO2 of 90, pCO2 40, pH 7.49. Currently on propofol at 20 mcg/kg/m. Remains on heparin drip at weight-based protocol. Lactated Ringer's at 20 ML's per hour. She is being nourished with vital HP at 28 ML's per hour which is goal. Free water flushes at 30 MLS every 4 hours. Sputum culture pending. White count 20.5. Hemoglobin 7.7. Sodium 139. Potassium 3.9. Creatinine 0.53. AST 70, ALT 80. She remains on DuoNeb inhalations. Chest x-ray reveals good placement of the endotracheal tube and Dobbhoff tubes. Left sided PICC line in place. Bibasilar densities persist. Perihilar increase attenuation noted within the lungs, left hemidiaphragm remains obscured greater than right. Currently afebrile. Hemodynamically stable. Currently in atrial fibrillation with controlled ventricular rate. She responds to painful stimuli on the right. She did sustain an acute bilateral cerebellar ischemic stroke right greater than left as well as a subacute evolving ischemic infarction including the right MCA/TAZ watershed territory with left-sided hemiplegia. She has not tolerated daily interruption of sedation due to her becoming tachypneic, tachycardic and hypertensive. The patient is seen today 08/04/2020 and follow-up in the intensive care unit. Postoperative day #8. She remains intubated and sedated on mechanical ventilator. Current settings assist-control at a rate of 16, tidal volume 350, FiO2 40%, PEEP of 5. Blood gases reveal a P O2 of 81, pCO2 38, pH 7.51. She remains on propofol at 25 mcg/kg/m. Heparin per weight base protocol. Lactated Ringer's at 20 ML's per hour. She is being nourished with vital HP at 20 mL per hour which is goal. She is spontaneously moving her right arm and right leg. Not following any simple commands. She is status post 1 unit of packed red blood cells this adm ission. Current hemoglobin 6.9. White count 19.4. Sodium 138. Potassium 3.7. Creatinine 0.71. AST 117, ALT 106. Albumin 2.7. She was given a interruption of sedation and spontaneous breathing trial yesterday. She did develop atrial fibrillation with rapid ventricular response with hypertension, tachypnea. Placed back on mechanical ventilator. We'll trial again today. Plan is for possible tracheostomy and PEG tube placements on 08/06/2020. Chest x-ray continues to show cardiomegaly with mild central venous congestion and left greater than right bibasilar acute infiltrates. Small left pleural effusion. No significant change compared to previous. Sputum culture reveals no growth. Blood culture reveals no growth. She remains on bronchodilators, ceftriaxone. The patient is seen today 08/05/2020 in follow-up in the intensive care unit. Postoperative day #9. She remains intubated, sedated on the mechanical ventilator. Assist-control mode at a rate of 16, tidal been 350, FiO2 40% and a PEEP of 5. Morning blood gases reveal a P O2 of 66, pCO2 38, pH 7.4. She remains on a heparin drip or weight base protocol. Lactated Ringer's at 20 ML's per hour. Propofol at 40 mcg/kg/m. She is being nourished with vital HP at 28 ML's per hour which is goal. Chest x-ray reveals evidence of cardiomegaly with moderate central vascular congestion and left basilar small pleural effusion with associated acute infiltrate and/or atelectasis. A bit worse compared to yesterday. She was given Lasix 20 mg IVP 1. Remains on bronchodilators and on ceftriaxone. Repeat sputum culture pending. Status post 2 units of packed red blood cells this admission. White count 16.6. Hemoglobin 7.6. Sodium 137. Potassium 3.7. Creatinine 0.60. AST 142. ALT 156. Albumin 2.6. Glucose 106. Amiodarone was discontinued due to elevated LFTs. Currently rate-controlled atrial fibrillation. On 08/06/2020 him on seeing the patient for a follow-up in the intensive care unit. This patient is currently postop day number not 10. She had a comfort care postoperative course following her bypass surgeon and the patient had developed a stroke with altered mentation and she never got to a point where she was awake and alert and following commands and as such her extubation process of eating was quite complicated. She was always agitated, restless, not following commands and not following the weaning protocols. As such, the patient was kept sedated and the patient was kept on a mechanical ventilator. She had received daily sedation holidays. She is at the point where she is going to have a PEG and trach today done by general surgery. Meanwhile, the patient is on propofol running at 50 mcg/kg per minute and this morning she is calm and comfortable. She is on assist-control mode at the rate of 60 with a tidal volume of 350 and FiO2 of 40% with a PEEP of 5. The blood gases from today showed a pH of 7.4 With a pCO2 of 40 and pO2 of 71. Hemoglobin is at 7.3 and the patient received a unit of packed RBC on 08/04/2020 and hemoglobin has remained stable since. The patient had some mild disturbance in the liver function tests. Amiodarone has been discontinued. Current cardiac rhythm is sinus. The patient is on no pressors. The patient currently is receiving IV fluids in the form of D5 half- normal along with potassium supplements at the rate of 40 mL an hour. Neur ologically, she does have a pressure gaze to the right upper quadrant area. Pupils are equal and reactive to light. She withdraws to painful similar ablation 04 extremities. Neurologist on the case. She does have a Dobbhoff and the patient is receiving enteral feeding in the form of vital high protein and currently the tube feeds on hold pending surgery. Blood sugars under adequate control. Urine output is adequate. Objective - Vital Signs Vital signs: Vital Signs Temp 98.3 F 08/06/20 04:00 Pulse 59 L 08/06/20 06:00 Resp 15 08/06/20 06:00 BP 137/60 08/06/20 06:00 Pulse Ox 97 08/06/20 06:00 Intake & Output 08/05/20 08/05/20 08/06/20 06:59 18:59 06:59 Intake Total 330.419 1418.217 510 Output Total 990 1100 810 Balance -43.775 139.217 -300 Weight 90.3 kg 89.7 kg Intake: IV 240 290 240 Lactated Ringers 1,000 ml 240 240 240 @ 20 mls/hr IV .Q24H [facility] Rx#:[id number] cefTRIAXone 1 gm In 50 Sodium Chloride 0.9% 50 ml @ 100 mls/hr IVPB Q24HR [facility] Rx#:[id number] Intake, IV Titration 280.225 433.217 100 Amount Heparin Sod,Pork in 0.45% 161.118 74.153 NaCl 25,000 unit In 0.45 % NaCl 1 250ml.bag @ 10. 89 UNITS/KG/HR 9.997 mls/ hr IV .Q24H [facility] Rx#: [id number] levETIRAcetam IV 500 mg 100 In Sodium Chloride 0.9% 100 ml @ 400 mls/hr IVPB Q12HR [facility] Rx#:[id number] propofoL 1,000 mg In 119.107 259.064 100 Empty Bag 1 bag @ Titrate IV .Q0M [facility] Rx#: [id number] Tube Feeding 336 336 140 Other 90 180 30 Output: Urine 990 1100 810 Other: Voiding Method Indwelling Catheter Indwelling Catheter Indwelling Catheter ABP, PAP, CO, CI - Last Documented Arterial Blood Pressure 113/55 Pulmonary Artery Pressure 40/20 Cardiac Output 4.3 Cardiac Index 2.2 - Exam Intubated, sedated 75-year-old female patient. Poorly responsive, is sedated, and on mechanical ventilation. For the spontaneous breathing trial, the patient was off sedation, is still minimally responsive. HEENT examination is grossly unremarkable. Mucous membranes are moist. There is a orally placed endotracheal tube, and the patient has a Dobbhoff catheter in place Neck supple. Full range of motion. No adenopathy thyromegaly or neck vein distention. Cardiovascular examination reveals an irregular rhythm and rate. S1-S2 normal. No S3 or S4. No discernible murmur noted. Heart sounds are distant. Lungs reveal bilateral rhonchi. No wheezes or crackles. Breath sounds equal bilaterally., Sternal stable clean and intact and is well-healed Abdomen soft bowel sounds are heard. No masses or tenderness. Extremities are intact. No cyanosis clubbing or edema. Skin is without rash or lesion. Neurologic examination reveals a poorly responsive female, who does not move her left side. - Labs CBC & Chem 7: 08/06/20 03:05 08/06/20 03:05 Labs: Abnormal Lab Results - Last 24 Hours (Table) 08/05/20 08/05/20 08/05/20 Range/Units 11:50 12:15 17:32 WBC (3.8-10.6) k/uL RBC (3.80-5.40) m/uL Hgb (11.4-16.0) gm/dL Hct (34.0-46.0) % Plt Count (150-450) k/uL Neutrophils # (1.3-7.7) k/uL Monocytes # (0-1.0) k/uL Eosinophils # (0-0.7) k/uL APTT 55.5 H (22.0-30.0) sec ABG pO2 (83-108) mmHg ABG Total CO2 (19-24) mmol/L BUN (7-17) mg/dL POC Glucose (mg/dL) 118 H 117 H (75-99) mg/dL Calcium (8.4-10.2) mg/dL AST (14-36) U/L ALT (4-34) U/L Alkaline Phosphatase (38-126) U/L Total Protein (6.3-8.2) g/dL Albumin (3.5-5.0) g/dL 08/05/20 08/06/20 08/06/20 Range/Units 23:59 03:05 03:05 WBC 18.0 H (3.8-10.6) k/uL RBC 2.44 L (3.80-5.40) m/uL Hgb 7.3 L (11.4-16.0) gm/dL Hct 22.6 L (34.0-46.0) % Plt Count 477 H (150-450) k/uL Neutrophils # 13.4 H (1.3-7.7) k/uL Monocytes # 1.2 H (0-1.0) k/uL Eosinophils # 1.0 H (0-0.7) k/uL APTT (22.0-30.0) sec ABG pO2 (83-108) mmHg ABG Total CO2 (19-24) mmol/L BUN 23 H (7-17) mg/dL POC Glucose (mg/dL) 111 H (75-99) mg/dL Calcium 8.2 L (8.4-10.2) mg/dL AST 94 H (14-36) U/L ALT 135 H (4-34) U/L Alkaline Phosphatase 147 H (38-126) U/L Total Protein 5.1 L (6.3-8.2) g/dL Albumin 2.7 L (3.5-5.0) g/dL 08/06/20 Range/Units 05:15 WBC (3.8-10.6) k/uL RBC (3.80-5.40) m/uL Hgb (11.4-16.0) gm/dL Hct (34.0-46.0) % Plt Count (150-450) k/uL Neutrophils # (1.3-7.7) k/uL Monocytes # (0-1.0) k/uL Eosinophils # (0-0.7) k/uL APTT (22.0-30.0) sec ABG pO2 71 L (83-108) mmHg ABG Total CO2 25 H (19-24) mmol/L BUN (7-17) mg/dL POC Glucose (mg/dL) (75-99) mg/dL Calcium (8.4-10.2) mg/dL AST (14-36) U/L ALT (4-34) U/L Alkaline Phosphatase (38-126) U/L Total Protein (6.3-8.2) g/dL Albumin (3.5-5.0) g/dL Microbiology - Last 24 Hours (Table) 08/05/20 08:30 Gram Stain - Preliminary Sputum Sputum Culture - Preliminary 08/02/20 09:31 Blood Culture - Preliminary Blood No Growth after 72 hours Assessment and Plan Plan: 1 Status post three-vessel bypass grafting. The patient is postop day #10. The patient remains intubated on mechanical ventilator. This was a post operative course was quite complicated and the patient a neurologic event with left-sided weakness and right sided/study bilateral acute/subacute CVA. Neurologist on the case. There has been ongoing issues with mental status and difficulty in following commands. The patient has failed weaning accordingly and the patient is proceeding with a 2 acute hypoxemic respiratory failure and remains on the ventilator because of her recent ischemic CVA. 3 Postoperative acute/subacute right cerebellar infarct, complicated further by a lleft-sided hemiparesis. 4 Leukocytosis of unclear etiology 5 Remote history of non-small cell lung cancer, with previous lobectomy. 6 Prior history of tobacco use. 7 Mild COPD based on PFTs. 8 Family history of premature coronary artery disease. 9 History of hypertension. 10 Peripheral vascular occlusive disease. 11 Degenerative joint disease. 12 Hyperlipidemia. 13 Chronic insomnia. 14 History of postoperative anemia. Plan: Proceed with PEG and trach and following that will start weaning the sedation as tolerated and assess the patient's mental status. The tube feeds on hold pending surgery Keep the patient assist-control mode of ventilation no vent changes for today. Chest x-ray was reviewed and shows some mild four-vessel congestion. Small bilateral pleural effusion expected post surgery. Hemoglobin stable Coagulation profile is stable We'll continue ceftriaxone for a temperature spike been going on earlier and currently she is afebrile. This was essentially nonpitting antibiotic coverage. Empiric antiepileptic coverage with Keppra We will continue to follow and make further recommendations based on her clinical status Critical care evaluation, done more than 30 minutes. Time with Patient: Greater than 30
--- NOTE | 2020-08-06 08:10 | XR ---
EXAMINATION TYPE: XR chest 1V portable DATE OF EXAM: 08/06/2020 COMPARISON: Chest x-ray 08/05/2020 HISTORY: Postop coronary artery bypass graft TECHNIQUE: Single frontal view of the chest is obtained. FINDINGS: Endotracheal tube, Dobbhoff tube, thoracic cord stimulator, post median sternotomy and lef t atrial appendage clip placement, left-sided PICC line are again noted, there are overlying leads an d artifacts. No evident pneumothorax. Pleural parenchymal changes are similar, cardiomediastinal silh ouette is stable. IMPRESSION: Dobbhoff tube likely within the stomach. Correlate for congestive heart failure, pneumon ia, ARDS, there is likely pleural effusion. Findings are similar to prior exam.
[2020-08-06 08:54] LABS: INR 0.9 (<1.2); Partial Thromboplastin Time 31.7 sec (22.0-30.0)
--- NOTE | 2020-08-06 09:47 | P.PN ---
Subjective Progress Note Date: 08/06/20 Principal diagnosis: Triple-vessel coronary artery disease, unstable angina. Past medical history significant for coronary artery disease with previous myocardial infarction and stent placement, peripheral arterial disease with lower extremity stenting, lung cancer status post right lower lobectomy in 2011, hypertension, hyperlipidemia, COPD with previous tobacco dependence, anxiety/depression, family history of premature coronary artery disease with 2 of her sons having had coronary artery bypass grafting surgery, significant plaque formation more than 75% stenosis at the origins of both internal and external carotid arteries bilaterally on CTA. POD #10 coronary artery bypass grafting 3 vessels, left internal mammary artery to the left anterior descending artery, a reverse greater saphenous vein graft to the obtuse marginal artery, a reverse greater saphenous vein graft to the posterior descending artery, endoscopic harvesting of the right greater saphenous vein, ligation of the left atrial appendage using a 35 mm AtriClip, epi-aortic ultrasound and intraoperative transesophageal echocardiogram. Postoperative acute blood loss anemia, expected given hemodilution and cardiopulmonary bypass pump. Postoperative right acute/subacute cerebellar infarct on brain CT, unexpected, although possible complication of any open heart surgery, especially given patient's known history of significant arterial disease. Prolonged mechanical ventilation, unexpected, secondary to acute stroke. Paroxysmal atrial fibrillation, known common occurrence after open heart woodall rgery. The patient was seen in follow-up today 08/06/2020 at her bedside in intensive care unit. She remains sedated on propofol drip at 50 mcg/kg/m, remains intubated with mechanical ventilator support, current mechanical ventilator settings are as follows, assist control 16, TV 350, FiO2 40% and PEEP of 5. Oxygen saturation on current mechanical ventilator settings are 98%. ABG results this morning show a pH of 7.39, pCO2 40, pO2 71, HCO3 25, oxygen saturation 94.5 and base excess -0.7. Bedside telemetry currently showing sinus bradycardia heart rate 56 bpm. Amiodarone was discontinued yesterday as her liver enzymes were trending up. Today her laboratory results show her AST and ALT are trending down. Current laboratory results show a WBC count 18.0, hemoglobin 7.3, hematocrit 22.6, platelets 477, sodium 137, potassium 4.1, BUN 23, creatinine 0.58, AST 94, ALT 135, INR 0.9 and PTT 31.7. She's been afebrile the last 24 hours and remains on Rocephin for her antibiotic coverage. Blood and sputum cultures remain showing no growth. Tube feeding is currently on hold as she is nothing by mouth for her tracheostomy and PEG tube placement today. Heparin drip is also on hold at this time. She does remove from noxious stimuli to all 4 extremities, although due to her sedation she is not following any verbal commands at this time. Objective - Vital Signs Vital signs: Vital Signs Temp 97.9 F 08/06/20 08:00 Pulse 55 L 08/06/20 09:26 Resp 17 08/06/20 09:00 BP 113/57 08/06/20 09:00 Pulse Ox 96 08/06/20 09:00 Intake & Output 08/05/20 08/06/20 08/06/20 18:59 06:59 18:59 Intake Total 1239.217 650 120 Output Total 1100 810 140 Balance 139.217 -160 -20 Weight 89.7 kg Intake: IV 290 100 80 D5-0.45% NaCl with KCl 80 20Meq/l 1,000 ml @ 40 mls /hr IV .Q24H [facility] Rx#: [id number] Lactated Ringers 1,000 ml 240 100 @ 20 mls/hr IV .Q24H [facility] Rx#:[id number] cefTRIAXone 1 gm In 50 Sodium Chloride 0.9% 50 ml @ 100 mls/hr IVPB Q24HR [facility] Rx#:[id number] Intake, IV Titration 433.217 380 40 Amount D5-0.45% NaCl with KCl 280 40 20Meq/l 1,000 ml @ 40 mls /hr IV .Q24H [facility] Rx#: [id number] Heparin Sod,Pork in 0.45% 74.153 NaCl 25,000 unit In 0.45 % NaCl 1 250ml.bag @ 10. 89 UNITS/KG/HR 9.997 mls/ hr IV .Q24H [facility] Rx#: [id number] levETIRAcetam IV 500 mg 100 In Sodium Chloride 0.9% 100 ml @ 400 mls/hr IVPB Q12HR [facility] Rx#:[id number] propofoL 1,000 mg In 259.064 100 Empty Bag 1 bag @ Titrate IV .Q0M [facility] Rx#: [id number] Tube Feeding 336 140 Other 180 30 Output: Urine 1100 810 140 Other: Voiding Method Indwelling Catheter Indwelling Catheter ABP, PAP, CO, CI - Last Documented Arterial Blood Pressure 113/55 Pulmonary Artery Pressure 40/20 Cardiac Output 4.3 Cardiac Index 2.2 - Exam The patient remains intubated with mechanical ventilator support. Currently sedated on propofol drip at 50 mcg/kg/m. She continues to respond to noxious stimuli to her bilateral upper and lower extremities. Not following any verbal commands at this time. - Constitutional General appearance: Present: no acute distress, obese - EENT Eyes: Present: normal appearance. Absent: scleral icterus - Neck Details: Neck is supple, no JVD, no lymphadenopathy. - Respiratory Details: Lung sounds with coarse rhonchi throughout, diminished to her bilateral bases. Respirations are symmetrical and nonlabored with mechanical ventilator support. Current mechanical ventilator settings are as follows, assist control 16, tidal volume 350, FiO2 40% and PEEP of 5. Oxygen saturations on current mechanical ventilator settings are 98%. - Cardiovascular Details: Regular rhythm and bradycardic rate. S1 and S2 present, negative for S3, gallop or murmur. Sternum is stable. Heart hugger is in place. Bedside telemetry showing sinus bradycardia heart rate 56 BPM. Generalized +1 edema. Knee-high DEBI hose and sequential compression devices in place to bilateral lower extremit ies. - Gastrointestinal Gastrointestinal Comment(s): Abdomen is soft, nontender and nondistended. Active bowel sounds present in all 4 abdominal quadrants. No guarding or rigidity. No megaly appreciated. Dobbhoff tube in place and is currently nothing by mouth. - Genitourinary Genitourinary Comment(s): Da Silva catheter for accurate I&O. Draining clear yellow urine with 680 mL output in the last 8 hours. - Integumentary Integumentary Comment(s): Skin is warm and dry. No clubbing or cyanosis is present. Midline sternal incision is clean, dry and approximated. No drainage or redness is present. Right lower extremity EVH site is clean, dry and approximated. No drainage or redness is present. - Neurologic Neurologic Comment(s): Unable to accurately assess at this time as she is sedated on propofol drip at 50 mcg/kg/m. He does withdraw from noxious stimuli to all 4 extremities. - Musculoskeletal Musculoskeletal Comment(s): Unable to accurately assess at this time as she is sedated on propofol drip at 50 mcg/kg/m. He does withdraw from noxious stimuli to all 4 extremities. - Psychiatric Psychiatric Comment(s): Unable to accurately assess at this time as she is sedated on propofol drip at 50 mcg/kg/m. - Allied health notes Allied health notes reviewed: nursing - Labs CBC & Chem 7: 08/06/20 03:05 08/06/20 03:05 Labs: Abnormal Lab Results - Last 24 Hours (Table) 08/05/20 08/05/20 08/05/20 Range/Units 11:50 12:15 17:32 WBC (3.8-10.6) k/uL RBC (3.80-5.40) m/uL Hgb (11.4-16.0) gm/dL Hct (34.0-46.0) % Plt Count (150-450) k/uL Neutrophils # (1.3-7.7) k/uL Monocytes # (0-1.0) k/uL Eosinophils # (0-0.7) k/uL APTT 55.5 H (22.0-30.0) sec ABG pO2 (83-108) mmHg ABG Total CO2 (19-24) mmol/L BUN (7-17) mg/dL POC Glucose (mg/dL) 118 H 117 H (75-99) mg/dL Calcium (8.4-10.2) mg/dL AST (14-36) U/L ALT (4-34) U/L Alkaline Phosphatase (38-126) U/L Total Protein (6.3-8.2) g/dL Albumin (3.5-5.0) g/dL 08/05/20 08/06/20 08/06/20 Range/Units 23:59 03:05 03:05 WBC 18.0 H (3.8-10.6) k/uL RBC 2.44 L (3.80-5.40) m/uL Hgb 7.3 L (11.4-16.0) gm/dL Hct 22.6 L (34.0-46.0) % Plt Count 477 H (150-450) k/uL Neutrophils # 13.4 H (1.3-7.7) k/uL Monocytes # 1.2 H (0-1.0) k/uL Eosinophils # 1.0 H (0-0.7) k/uL APTT (22.0-30.0) sec ABG pO2 (83-108) mmHg ABG Total CO2 (19-24) mmol/L BUN 23 H (7-17) mg/dL POC Glucose (mg/dL) 111 H (75-99) mg/dL Calcium 8.2 L (8.4-10.2) mg/dL AST 94 H (14-36) U/L ALT 135 H (4-34) U/L Alkaline Phosphatase 147 H (38-126) U/L Total Protein 5.1 L (6.3-8.2) g/dL Albumin 2.7 L (3.5-5.0) g/dL 08/06/20 08/06/20 Range/Units 05:15 08:25 WBC (3.8-10.6) k/uL RBC (3.80-5.40) m/uL Hgb (11.4-16.0) gm/dL Hct (34.0-46.0) % Plt Count (150-450) k/uL Neutrophils # (1.3-7.7) k/uL Monocytes # (0-1.0) k/uL Eosinophils # (0-0.7) k/uL APTT 31.7 H (22.0-30.0) sec ABG pO2 71 L (83-108) mmHg ABG Total CO2 25 H (19-24) mmol/L BUN (7-17) mg/dL POC Glucose (mg/dL) (75-99) mg/dL Calcium (8.4-10.2) mg/dL AST (14-36) U/L ALT (4-34) U/L Alkaline Phosphatase (38-126) U/L Total Protein (6.3-8.2) g/dL Albumin (3.5-5.0) g/dL Microbiology - Last 24 Hours (Table) 08/05/20 08:30 Gram Stain - Preliminary Sputum Sputum Culture - Preliminary 08/02/20 09:31 Blood Culture - Preliminary Blood No Growth after 72 hours - Imaging and Cardiology Chest x-ray: report reviewed, image reviewed Assessment and Plan Assessment: 1. Triple-vessel coronary artery disease, unstable angina, status post three- vessel CABG 2. History of coronary artery disease with previous myocardial infarction and stent placement 3. Peripheral arterial disease with lower extremity stenting 4. History of lung cancer status post right lower lobectomy 5. Hypertension, currently hypotensive requiring IV pressors 6. Hyperlipidemia, treated, cholesterol 152, LDL 85 7. COPD with previous tobacco dependence, preoperative FEV1 82% of predicted 8. Anxiety/depression 9. Family history of premature coronary artery disease 10. Postoperative acute blood loss anemia, expected, status post 1 unit packed red blood cell transfusion 11. Postoperative acute/subacute right cerebellar infarct, unexpected, with evidence of previous right parietal stroke 12. Bilateral internal carotid artery disease greater than 75% present on CTA 13. Prolonged mechanical ventilation 14. Paroxysmal atrial fibrillation, status post ligation of the left atrial appendage, currently sinus rhythm 15. Leukocytosis, preliminary results of sputum culture showing moderate gram- positive cocci Plan: 1. Continue aspirin, statin and beta tran. Will increase beta tran therapy as tolerated. 2. The patient is scheduled for a tracheostomy placement and percutaneous endoscopic gastrostomy tube placement for today. Tube feedings have been on hold since midnight and heparin drip has been on hold since 4 AM. 3. Mechanical ventilation per pulmonology/critical care management. Bronchodilators per pulmonology/critical care management. 4. The patient son Christian has been updated on her care, and the time of her scheduled procedure today. 5. Continue to monitor daily labs and chest x-rays. Electrolyte replacement per protocol. 6. GI and DVT prophylaxis. 7. After her tracheostomy and PEG tube placement today continue to limit sedation as much as possible to be able to assess neuro status. 8. Continue Da Silva catheter and record accurate I's and O's. 9. Pain control with current when necessary orders. 10. Strict accurate intake and output. Daily weights 11. Continue to follow the blood and sputum culture results. 12. More recommendations to follow based on patient's clinical course. Time with Patient: Greater than 30
[2020-08-06] MEDS ORDERED: CLINDAMYCIN 150 MG/ML 4 ML VIAL ONE (10:50)
[2020-08-06] MEDS ORDERED: ePHEDrine SULFATE/0.9% NACL/PF 50 MG/5 ML SYRINGE IV ONE (10:50)
[2020-08-06] MEDS ORDERED: ROCURONIUM 10 MG/ML (5 ML VIAL) IV ONE (10:50)
[2020-08-06] MEDS ORDERED: fentaNYL (PF) 50 MCG/ML 2 ML AMP ONE (10:50)
[2020-08-06] MEDS ORDERED: IV FLUID CONTINUATION 1,000 ML IV ONE (11:08)
[2020-08-06] MEDS: CHLORHEXIDINE GLUCONATE 15 ML CUP MUCOUS MEM SCH ×2 (13:03→21:09)
[2020-08-06] MEDS: ASPIRIN 81 MG PO SCH (13:03)
[2020-08-06] MEDS: SERTRALINE 100 MG TAB PO SCH (13:04)
[2020-08-06] MEDS: PANTOPRAZOLE 40 MG/10 ML VIAL IVP SCH (13:04)
--- NOTE | 2020-08-06 13:37 | XR ---
EXAMINATION TYPE: XR chest 1V portable DATE OF EXAM: 08/06/2020 COMPARISON: Prior chest x-ray 08/06/2020 HISTORY: Status post tracheostomy tube placement TECHNIQUE: Single frontal view of the chest is obtained. FINDINGS: Tracheostomy tube shows the tube overlying the tracheal air column, endotracheal tube has been removed as has the Dobbhoff tube. Left-sided PICC line shows the distal tip over the superior ve na cava. No evident pneumothorax or other significant change. IMPRESSION: Interval tracheostomy tube placement as described.
[2020-08-06 13:41] LABS: Glucose,Whole Blood 108 mg/dL (75-99)
--- NOTE | 2020-08-06 14:10 | P.OP ---
Date of Procedure: 08/06/20 Preoperative Diagnosis: Malnutrition Postoperative Diagnosis: Malnutrition Procedure(s) Performed: EGD with PEG tube placement Anesthesia: MAC Surgeon: Og Chavarria Pathology: none sent Condition: stable Disposition: PACU Description of Procedure: The patient's placed on the operating table in supine position. She received general anesthesia. The gastroscope oropharynx and passed in the esophagus into the stomach. The stomach was inflated air. The skin was prepped and draped usual sterile fashion. A suitable light reflux seen the anterior abdominal wall. A josiane in the skin was made and then the needles placed and stomach under direct visualization. The needles then snared and the wires in place a needle. Wire was then snared brought the oropharynx. The PEG tube placed overtop the wire and brought down to the stomach. The PEG tube was secured at 3 cm sherri is one-piece bolster. Patient top she will well.
--- NOTE | 2020-08-06 14:16 | OP ---
OPERATIVE REPORT DATE OF SURGERY: 08/06/2020. PREOPERATIVE DIAGNOSIS: Ventilator-dependent respiratory failure. POSTOPERATIVE DIAGNOSIS: Ventilator-dependent respiratory failure. PROCEDURE: Open tracheostomy using #7 Bivona tracheostomy tube. SURGEON: Yamil Alan MD. PIG MACHINE OPERATOR HELPER: Shady Oliveira NP. ANESTHESIA: General. SPECIMEN: None. COMPLICATION: None. INDICATION: The patient is a 75-year-old female who underwent coronary artery bypass surgery on 07/27/2020. Her postoperative course was complicated by a stroke. Placement of open tracheostomy was recommended along with PEG tube. The risks, benefits, and alternatives to these procedures were discussed with the patient's sons. All of their questions were answered. Consent was obtained. PROCEDURE IN DETAIL: The patient was taken the operating room and placed supine on the operating table. After the induction of general anesthesia, she was prepped and draped in the usual sterile fashion. The neck was slightly extended and the arms were tucked at the sides. A cervical collar incision was created one fingerbreadth above the sternal notch. Dissection was taken down through the subcutaneous tissue and the platysma. The strap muscles were identified and divided vertically in the midline. The inferior portion of the isthmus of the thyroid was divided using electrocautery. The trachea was identified. The pretracheal fascia was incised using scissors. The cricoid cartilage was identified. An incision was made through the third tracheal ring in a trap door fashion. The ET tube was withdrawn to the vocal cords and I attempted to place a #8 Shiley tracheostomy tube. However, due to the patient's body habitus this was quite difficult. For this reason, I readvanced the ET tube and reoxygenated the patient back to a saturation of 99%. At this point, a #7 Bivona tube was placed and entered on the trachea easily. It was secured to the skin. End-tidal CO2 was achieved. The patient was not losing any tidal volume. The flange was secured to the skin in 4 places using Prolene suture. A cervical neck cord was also placed. A drain sponge was placed. The patient appeared to tolerate the procedure well. No complications. The PEG tube was placed by Dr. Chavarria immediately following this procedure. Please refer to his separate dictation regarding details of that portion of the procedure. MMODL / IJN: [id number] / [facility]
[2020-08-06] MEDS: METOPROLOL TARTRATE 25 MG TAB PO SCH ×3 (14:19→21:09)
[2020-08-06] MEDS: levETIRAcetam IV 500 MG in SODIUM CHLORIDE 0.9% 100 ML IVPB SCH ×2 (14:36→23:30)
[2020-08-06] MEDS: HEPARIN SOD,PORK IN 0.45% NACL 25,000 UNIT in 0.45% NACL 1 250ML.BAG IV SCH (15:43)
--- NOTE | 2020-08-06 16:04 | P.PN ---
Subjective HISTORY OF PRESENTING ILLNESS This is a pleasant 75-year-old female past medical history significant for coronary artery disease with previous myocardial infarction and stent placement, peripheral artery disease with lower extremity stenting, lung cancer s/p right lower lobectomy in 2011, hypertension, hyperlipidemia, COPD with previous to bacco dependence. . Patient presented with NSTEMI, evidence of congestive heart failure, underwent coronary artery bypass grafting x 3 vessels . Post- operatively in an attempt ot wean patient, Patient was found to have left-sided weakness. Patient is seen and examined this morning. She is intubated and sedated on propofol drip. Vent setting AC 16, TV 350, FiO2 40%, PEEP of 5. Laboratory data reviewed, WBC 18, Hgb 7.3, Plt 477, Na 137, K 4.1, sCr 0.58, AST 94, ALT 135, Alk Phos 147. Vital signs BP 119/51 HR 50s SpO2 98% afebrile Current cardiac medications include: aspirin 81mg daily, Lipitor 80mg nightly, heparin gtt (on hold for Trach/PEG placement, lopressor 25mg TID, PHYSICAL EXAMINATION CHEST EXAMINATION: No chest wall tenderness is noted on palpation or with deep breathing. HEART EXAMINATION: . S1, S2 heard. No murmurs, gallops or rub. ABDOMEN: Soft, Positive bowel sounds. EXTREMITIES: 2+ peripheral pulses, 1+ pitting edema ASSESSMENT NSTEMI, s/p three vessel CABG Respiratory failure, status post CABG Cerebrovascular accident Paroxysmal atrial fibrillation - remains in sinus mechanism at this time History of coroanry artery disease with previous myocardial infarction and stent placement Peripheral artery disease with lower extremity stenting History of Hypertension Hyperlipidemia History of lung cancer PLAN -From cardiology standpoint, we will continue present therapy. -Patient is scheduled for tracheotomy placement and PEG tube today (heparin gtt has been on hold) -Depending on patient's progress, further recommendation will be made. Nurse Practitioner note has been reviewed, I agree with a documented findings and plan of care. Patient was seen and examined. Objective - Vital Signs Vital signs: Vital Signs Temp 97.7 F 08/06/20 13:00 Pulse 64 08/06/20 15:00 Resp 18 08/06/20 15:00 BP 139/55 08/06/20 15:00 Pulse Ox 93 L 08/06/20 15:00 Intake & Output 08/05/20 08/06/20 08/06/20 18:59 06:59 18:59 Intake Total 1239.217 650 770 Output Total 1100 810 595 Balance 139.217 -160 175 Weight 89.7 kg 89.7 kg Intake: IV 290 100 630 D5-0.45% NaCl with KCl 280 20Meq/l 1,000 ml @ 60 mls /hr IV .[id number] [facility] Rx#: [id number] Lactated Ringers 1,000 ml 240 100 @ 20 mls/hr IV .Q24H [facility] Rx#:[id number] cefTRIAXone 1 gm In 50 Sodium Chloride 0.9% 50 ml @ 100 mls/hr IVPB Q24HR [facility] Rx#:[id number] levETIRAcetam IV 500 mg 100 In Sodium Chloride 0.9% 100 ml @ 400 mls/hr IVPB Q12HR@0000,1200 [facility] Rx#: [id number] Intake, IV Titration 433.217 380 140 Amount D5-0.45% NaCl with KCl 280 40 20Meq/l 1,000 ml @ 60 mls /hr IV .[id number] [facility]S Rx#: [id number] Heparin Sod,Pork in 0.45% 74.153 NaCl 25,000 unit In 0.45 % NaCl 1 250ml.bag @ 10. 89 UNITS/KG/HR 9.997 mls/ hr IV .Q24H [facility] Rx#: [id number] levETIRAcetam IV 500 mg 100 In Sodium Chloride 0.9% 100 ml @ 400 mls/hr IVPB Q12HR [facility] Rx#:[id number] propofoL 1,000 mg In 259.064 100 100 Empty Bag 1 bag @ Titrate IV .Q0M [facility] Rx#: [id number] Tube Feeding 336 140 Other 180 30 Output: Urine 1100 810 590 Estimated Blood Loss 5 Other: Voiding Method Indwelling Catheter Indwelling Catheter Indwelling Catheter ABP, PAP, CO, CI - Last Documented Arterial Blood Pressure 113/55 Pulmonary Artery Pressure 40/20 Cardiac Output 4.3 Cardiac Index 2.2 - Labs CBC & Chem 7: 08/06/20 03:05 08/06/20 03:05 Labs: Abnormal Lab Results - Last 24 Hours (Table) 08/05/20 08/05/20 08/06/20 Range/Units 17:32 23:59 03:05 WBC 18.0 H (3.8-10.6) k/uL RBC 2.44 L (3.80-5.40) m/uL Hgb 7.3 L (11.4-16.0) gm/dL Hct 22.6 L (34.0-46.0) % Plt Count 477 H (150-450) k/uL Neutrophils # 13.4 H (1.3-7.7) k/uL Monocytes # 1.2 H (0-1.0) k/uL Eosinophils # 1.0 H (0-0.7) k/uL APTT (22.0-30.0) sec ABG pO2 (83-108) mmHg ABG Total CO2 (19-24) mmol/L BUN (7-17) mg/dL POC Glucose (mg/dL) 117 H 111 H (75-99) mg/dL Calcium (8.4-10.2) mg/dL AST (14-36) U/L ALT (4-34) U/L Alkaline Phosphatase (38-126) U/L Total Protein (6.3-8.2) g/dL Albumin (3.5-5.0) g/dL 08/06/20 08/06/20 08/06/20 Range/Units 03:05 05:15 08:25 WBC (3.8-10.6) k/uL RBC (3.80-5.40) m/uL Hgb (11.4-16.0) gm/dL Hct (34.0-46.0) % Plt Count (150-450) k/uL Neutrophils # (1.3-7.7) k/uL Monocytes # (0-1.0) k/uL Eosinophils # (0-0.7) k/uL APTT 31.7 H (22.0-30.0) sec ABG pO2 71 L (83-108) mmHg ABG Total CO2 25 H (19-24) mmol/L BUN 23 H (7-17) mg/dL POC Glucose (mg/dL) (75-99) mg/dL Calcium 8.2 L (8.4-10.2) mg/dL AST 94 H (14-36) U/L ALT 135 H (4-34) U/L Alkaline Phosphatase 147 H (38-126) U/L Total Protein 5.1 L (6.3-8.2) g/dL Albumin 2.7 L (3.5-5.0) g/dL 08/06/20 Range/Units 13:40 WBC (3.8-10.6) k/uL RBC (3.80-5.40) m/uL Hgb (11.4-16.0) gm/dL Hct (34.0-46.0) % Plt Count (150-450) k/uL Neutrophils # (1.3-7.7) k/uL Monocytes # (0-1.0) k/uL Eosinophils # (0-0.7) k/uL APTT (22.0-30.0) sec ABG pO2 (83-108) mmHg ABG Total CO2 (19-24) mmol/L BUN (7-17) mg/dL POC Glucose (mg/dL) 108 H (75-99) mg/dL Calcium (8.4-10.2) mg/dL AST (14-36) U/L ALT (4-34) U/L Alkaline Phosphatase (38-126) U/L Total Protein (6.3-8.2) g/dL Albumin (3.5-5.0) g/dL Microbiology - Last 24 Hours (Table) 08/05/20 08:30 Gram Stain - Preliminary Sputum Sputum Culture - Preliminary Gram Neg Bacilli Lali albicans 08/02/20 09:31 Blood Culture - Preliminary Blood No Growth after 96 hours
[2020-08-06] MEDS: HEPARIN SODIUM,PORCINE 5,000 UNIT/ML 1 ML VIAL SQ SCH ×2 (17:18→23:30)
[2020-08-06 17:54] LABS: Glucose,Whole Blood 96 mg/dL (75-99)
[2020-08-06] MEDS: ATORVASTATIN 80 MG TAB PO SCH (21:09)
[2020-08-06] MEDS: EZETIMIBE 10 MG TAB PO SCH (21:09)
[2020-08-06] MEDS: SENNOSIDES-DOCUSATE SODIUM 1 EACH TAB PO SCH (21:09)
[2020-08-06] MEDS ORDERED: DEXTROSE 5% IN WATER 100 ML with AMIODARONE 150 MG IV ONE (22:30)
[2020-08-06] MEDS ORDERED: AMIODARONE 360 MG in DEXTROSE 5% IN WATER 200 ML IV ONE ×2 (22:45)
[2020-08-06 23:27] LABS: Glucose,Whole Blood 121 mg/dL (75-99)
--- NOTE | 2020-08-07 00:13 | P.PN ---
Subjective 08/03/2020 This is a pleasant 75-year-old patient of Dr. Derrick Neal. Chronic stable medical conditions include COPD, hyperlipidemia, hypertension, ostial arthritis, lung cancer 6 years ago, peripheral artery disease, coronary artery stent, perip heral stents, anxiety depression. Patient presented after she was having central chest pressure at home then went to both the shoulder blades for the arms. Admitted with unstable angina. underwent cardiac catheterization. Found to have severe triple-vessel coronary artery disease. Pulmonary team evaluated the patient and told her low risk for surgery. July 27-underwent coronary bypass 3, ligation of left atrial appendage. Patient received a unit of blood.postsurgery was found to have weakness on the left side.stroke was noted on the computed tomography scan. Including lacunar infarct.patient has been in and out of atrial fibrillation. computed tomography scan of the brain reviewed by Dr. Carrion: Acute bilateral cerebellar ischemic stroke as well as subacute evolving ischemic infarction involving the right MCA/TAZ watershed territory left caudate head ischemic infarction. [place] to be embolic. ICU-ventilator , has NG tube Today she remains in the ICU intubated and sedated with pulmonary/critical care team following her closely. And help with vent management. Her breathing rate is around 28, blood pressure 149/77, she is a slightly tachycardiac 95-120. Afebrile for 24 hours. Labs showed leukocytosis of 22.5, hemoglobin 7.7. BMP is unremarkable. Liver enzymes mildly elevated. Glucose is controlled. Patient evaluated by surgery team for PEG tube placement on 08/06, with coinciding take his replacement patient is undergoing sedation holiday by pulmonary team Sputum culture is growing gram-positive cocci and antibiotics were initiated by pulmonary team, currently she is on ceftriaxone Medication included heparin drip, Keppra and amiodarone 08/04/2020 Patient remains intubated and sedated in the ICU with pulmonary/critical care team monitor the patient closely. And help with event management. She still underwent going sedation a trial with poor response, probably related to her general condition and multiple cerebral infarcts involving the right MCA and TAZ. Surgical team to evaluate the patient for possible tracheostomy and PEG tube per pulmonary/critical care team recommendation possibly on Sunday 08/06 Patient is with low-grade fever today at 100.4, vitals looks stable WBC trended down slowly to 17.4 K. Hemoglobin 7.7. Compared to 6.9 yesterday, patient is status post blood transfusion BMP is unremarkable. Sugar control. Bilirubin is normal, liver enzymes slightly elevated. Patient currently on Rocephin . She is on Keppra and heparin drip. patient is followed closely by cardiology and cardiothoracic surgery team. Neurology team already evaluated the patient 08/05/2020 Patient remains intubated and sedated in the ICU with pulmonary/critical care team monitor the patient closely. And help with event management. She still undergoing sedation trial by pulmonary team with poor response and they recommended tracheostomy and PEG tube to be performed by surgery team tomorrow. Other than that continue with supportive care Neurology evaluated the patient today and recommended to continue with anticoagulation for her A. fib and stroke together with aspirin for her bilateral internal carotid artery stenosis but can stop Plavix Gastrointestinal persistent leukocytosis of 16.6 and currently patient is on ceftriaxone by the pulmonary team, BMP, electrolytes, creatinine and mildly elevated liver enzymes remain stable. Prognosis is guarded 08/06/2020 Patient remains in the ICU intubated and sedated with pulmonary/critical care team following him closely and vent management Patient failed several attempts versus sedation holiday probably related to her new stroke. Patient is scheduled for PEG tube placement and tracheostomy by surgical team today Is still on anticoagulation, aspirin and Plavix. Also he is on ceftriaxone Review of systems: N/a Active Medications Generic Name Dose Route Start Last Admin Trade Name Freq PRN Reason Stop Dose Admin Hydrocodone Bitart/Acetaminophen 1 each 07/28/20 01:54 08/02/20 11:14 Hydrocodone/Apap 5-325mg 1 Each Tab PO 1 each Q4HR PRN Administration Moderate Pain Albuterol/Ipratropium 3 ml 07/27/20 14:15 Ipratropium-Albuterol 3 Ml Neb INHALATION RT-Q2H PRN Shortness Of Breath Or Wheezing Albuterol/Ipratropium 3 ml 08/04/20 12:00 08/05/20 16:12 Ipratropium-Albuterol 3 Ml Neb INHALATION 3 ml RT-Q4H INÉS Administration Aspirin 81 mg 08/02/20 09:00 08/05/20 08:30 Aspirin 81 Mg PO 81 mg DAILY INÉS Administration Atorvastatin Calcium 80 mg 07/21/20 21:00 08/04/20 20:46 Atorvastatin 80 Mg Tab PO 80 mg HS INÉS Administration Benzocaine/Menthol 1 each 07/27/20 14:15 Benzocaine/Menthol Lozeng 1 Each Lozenge MUCOUS MEM Q2H PRN Sore Throat Bisacodyl 10 mg 07/28/20 09:00 08/04/20 08:47 Bisacodyl 10 Mg Supp RECTAL 10 mg DAILY PRN Administration Constipation Chlorhexidine Gluconate 15 ml 07/31/20 21:00 08/05/20 08:31 Chlorhexidine Gluconate 15 Ml Cup MUCOUS MEM 15 ml BID INÉS Administration Ezetimibe 10 mg 07/21/20 21:00 08/04/20 20:46 Ezetimibe 10 Mg Tab PO 10 mg HS INÉS Administration Heparin Sodium (Porcine) 0 unit 08/02/20 08:29 08/03/20 08:21 Heparin Sodium,Porcine 5,000 Unit/Ml 1 Ml Vial IV 08/06/20 04:00 4,550 unit PER PROTOCOL PRN Administration Low PTT Protocol Lactated Ringer's 1,000 mls @ 20 mls/hr 07/27/20 14:15 08/05/20 01:47 Lactated Ringers IV 20 mls/hr .Q24H INÉS Administration Calcium Gluconate 2 gm/ Sodium 120 mls @ 100 mls/hr 07/27/20 14:15 Chloride IVPB 08/06/20 14:16 ONCE PRN Ionized Calcium less than 4.4 Levetiracetam 500 mg/ Sodium 105 mls @ 400 mls/hr 07/29/20 21:00 08/05/20 08:31 Chloride IVPB 400 mls/hr Q12HR INÉS Administration Heparin Sodium/Sodium Chloride 250 mls @ 9.997 mls/hr 08/02/20 08:30 08/05/20 12:06 25,000 unit/ Sodium Chloride IV 12.89 units/kg/hr .Q24H IN[facility] 11.833 mls/hr Administration Protocol 10.89 UNITS/KG/HR Ceftriaxone Sodium 1 gm/ 50 mls @ 100 mls/hr 08/03/20 10:30 08/05/20 08:31 Sodium Chloride IVPB 100 mls/hr Q24HR INÉS Administration Propofol 1,000 mg/ IV Solution 100 mls @ 0 mls/hr 08/04/20 16:00 08/05/20 18:24 IV 50 mcg/kg/min .Q0M INÉS 27.09 mls/hr Administration Protocol Titrate Potassium Chloride/Dextrose/Sod Cl 1,000 mls @ 40 mls/hr 08/06/20 00:00 D5%-1/2ns-Kcl 20 Meq/L Iv Solution IV .Q24H [facility] Insulin Aspart 0 unit 08/05/20 12:00 08/05/20 17:39 Insulin Aspart (Novolog) 100 Unit/Ml Vial SQ Not Given Q6HR [facility] Protocol Magnesium Hydroxide 2,400 mg 07/28/20 09:00 Magnesium Hydroxide 2,400 Mg/10 Ml Cup PO BID PRN Constipation Metoclopramide HCl 10 mg 07/27/20 14:15 Metoclopramide 5 Mg/Ml 2 Ml Vial IVP Q4H PRN Nausea And Vomiting Metoprolol Tartrate 25 mg 08/03/20 09:00 08/05/20 15:53 Metoprolol Tartrate 25 Mg Tab PO 25 mg TID INÉS Administration Miscellaneous Information 1 each 07/27/20 14:15 Potassium Replacement Protocol 1 Each Misc MISCELLANE DAILY PRN Per Protocol Protocol Miscellaneous Information 1 each 07/27/20 14:15 Magnesium Replacement Protocol 1 Each Misc MISCELLANE DAILY PRN Per Protocol Protocol Miscellaneous Information 1 each 07/27/20 14:15 Phosphorus Replacement Protoco 1 Each Misc MISCELLANE DAILY PRN Per Protocol Protocol Miscellaneous Information 1 each 08/05/20 04:27 Potassium Replacement Protocol 1 Each Misc MISCELLANE DAILY PRN Per Protocol Protocol Ondansetron HCl 4 mg 07/27/20 14:15 Ondansetron 4 Mg/2 Ml Vial IVP Q6HR PRN Nausea And Vomiting Pantoprazole Sodium 40 mg 07/28/20 09:00 08/05/20 08:30 Pantoprazole 40 Mg/10 Ml Vial IVP 40 mg DAILY INÉS Administration Senna/Docusate Sodium 2 each 07/28/20 21:00 08/04/20 20:46 Sennosides-Docusate Sodium 1 Each Tab PO 2 each HS INÉS Administration Sertraline HCl 100 mg 07/21/20 09:00 08/05/20 08:30 Sertraline 100 Mg Tab PO 100 mg DAILY IN[facility]S Administration Sodium Chloride 10 ml 07/27/20 21:00 08/05/20 08:31 Sodium Chloride 0.9% Flush 10 Ml Syringe IV 10 ml BID INÉS Administration Objective - Vital Signs Vital signs: Vital Signs Temp 97.0 F L 08/06/20 16:00 Pulse 66 08/06/20 19:00 Resp 18 08/06/20 19:44 BP 142/59 08/06/20 19:00 Pulse Ox 98 08/06/20 19:00 Intake & Output 08/06/20 08/06/20 08/07/20 06:59 18:59 06:59 Intake Total 650 1028.123 47.894 Output Total 810 870 60 Balance -160 158.123 -12.106 Weight 89.7 kg 89.7 kg Intake: IV 100 750 40 D5-0.45% NaCl with KCl 400 40 20Meq/l 1,000 ml @ 60 mls /hr IV .[id number] [facility] Rx#: [id number] Lactated Ringers 1,000 ml 100 @ 20 mls/hr IV .Q24H [facility] Rx#:[id number] levETIRAcetam IV 500 mg 100 In Sodium Chloride 0.9% 100 ml @ 400 mls/hr IVPB Q12HR@0000,1200 [facility] Rx#: [id number] Intake, IV Titration 380 278.123 7.894 Amount D5-0.45% NaCl with KCl 280 40 20Meq/l 1,000 ml @ 60 mls /hr IV .[id number] [facility] Rx#: [id number] propofoL 1,000 mg In 100 238.123 7.894 Empty Bag 1 bag @ Titrate IV .Q0M [facility] Rx#: [id number] Tube Feeding 140 Other 30 Output: Urine 810 865 60 Estimated Blood Loss 5 Other: Voiding Method Indwelling Catheter Indwelling Catheter Indwelling Catheter ABP, PAP, CO, CI - Last Documented Arterial Blood Pressure 113/55 Pulmonary Artery Pressure 40/20 Cardiac Output 4.3 Cardiac Index 2.2 - Labs CBC & Chem 7: 08/06/20 03:05 08/06/20 03:05 Labs: Abnormal Lab Results - Last 24 Hours (Table) 08/05/20 08/06/20 08/06/20 Range/Units 23:59 03:05 03:05 WBC 18.0 H (3.8-10.6) k/uL RBC 2.44 L (3.80-5.40) m/uL Hgb 7.3 L (11.4-16.0) gm/dL Hct 22.6 L (34.0-46.0) % Plt Count 477 H (150-450) k/uL Neutrophils # 13.4 H (1.3-7.7) k/uL Monocytes # 1.2 H (0-1.0) k/uL Eosinophils # 1.0 H (0-0.7) k/uL APTT (22.0-30.0) sec ABG pO2 (83-108) mmHg ABG Total CO2 (19-24) mmol/L BUN 23 H (7-17) mg/dL POC Glucose (mg/dL) 111 H (75-99) mg/dL Calcium 8.2 L (8.4-10.2) mg/dL AST 94 H (14-36) U/L ALT 135 H (4-34) U/L Alkaline Phosphatase 147 H (38-126) U/L Total Protein 5.1 L (6.3-8.2) g/dL Albumin 2.7 L (3.5-5.0) g/dL 08/06/20 08/06/20 08/06/20 Range/Units 05:15 08:25 13:40 WBC (3.8-10.6) k/uL RBC (3.80-5.40) m/uL Hgb (11.4-16.0) gm/dL Hct (34.0-46.0) % Plt Count (150-450) k/uL Neutrophils # (1.3-7.7) k/uL Monocytes # (0-1.0) k/uL Eosinophils # (0-0.7) k/uL APTT 31.7 H (22.0-30.0) sec ABG pO2 71 L (83-108) mmHg ABG Total CO2 25 H (19-24) mmol/L BUN (7-17) mg/dL POC Glucose (mg/dL) 108 H (75-99) mg/dL Calcium (8.4-10.2) mg/dL AST (14-36) U/L ALT (4-34) U/L Alkaline Phosphatase (38-126) U/L Total Protein (6.3-8.2) g/dL Albumin (3.5-5.0) g/dL Microbiology - Last 24 Hours (Table) 08/05/20 08:30 Gram Stain - Preliminary Sputum Sputum Culture - Preliminary Gram Neg Bacilli Lali albicans 08/02/20 09:31 Blood Culture - Preliminary Blood No Growth after 96 hours
[2020-08-07] MEDS: INSULIN ASPART (NovoLOG) 100 UNIT/ML VIAL SQ SCH ×4 (00:37→17:45)
[2020-08-07] MEDS: IPRATROPIUM-ALBUTEROL 3 ML NEB INHALATION SCH (03:42)
[2020-08-07 04:36] LABS: ALT 124 U/L (4-34); AST 80 U/L (14-36); African American GFR (CKD) >90 (>60 ml/min/1.73 sqM); Albumin 3.3 g/dL (3.5-5.0); Alkaline Phosphatase 181 U/L (38-126); Anion Gap 12 mmol/L; Blood Urea Nitrogen 16 mg/dL (7-17); Calcium 8.4 mg/dL (8.4-10.2); Carbon Dioxide 20 mmol/L (22-30); Chloride 105 mmol/L (98-107); Glucose 122 mg/dL (74-99); Non-African American GFR(CKD) >90 (>60 ml/min/1.73 sqM); Potassium 5.3 mmol/L (3.5-5.1); Sodium 137 mmol/L (137-145); Total Bilirubin 0.7 mg/dL (0.2-1.3)
[2020-08-07 04:45] LABS: HCT 27.7 % (34.0-46.0); HGB 8.6 gm/dL (11.4-16.0); Hypochromasia Slight; MCH 29.4 pg (25.0-35.0); MCHC 31.2 g/dL (31.0-37.0); MCV 94.1 fL (80.0-100.0); Mean Platelet Volume 8.3; Platelet Count 739 k/uL (150-450); RBC 2.94 m/uL (3.80-5.40); RDW 14.7 % (11.5-15.5)
[2020-08-07] MEDS: AMIODARONE 450 MG in DEXTROSE 5% IN WATER 250 ML IV SCH ×2 (04:56)
[2020-08-07 05:06] LABS: ABG HCO3 22 mmol/L (21-25); ABG Oxygen Saturation 93.9 % (94-97); ABG PCO2 45 mmHg (35-45); ABG PH 7.29 (7.35-7.45); ABG PO2 76 mmHg (83-108); ABG TCO2 23 mmol/L (19-24); Allen Test Performed? Yes
[2020-08-07 05:37] LABS: Glucose,Whole Blood 138 mg/dL (75-99)
--- NOTE | 2020-08-07 06:46 | P.PN ---
Subjective Progress Note Date: 08/07/20 Coronary artery disease status post coronary artery bypass grafting Patient was reevaluated today on 07/28/2020, remains intubated and mechanically ventilated. Patient is now on assist control mode of mechanical ventilation with a rate of 16, volume is 450 FiO2 is 50% and PEEP of 5. Unfortunately the p atjuan was noted to have poor movement of her left upper and left lower extremity last night, CT of the head last night showed acute/subacute area of infarction in the right cerebellum along with probable area of chronic infarction in the right parietal region I evaluated the patient this morning, s eems to be extremely restless and agitated, seems to be neglecting the left side, and both eyes are deviated to the right and upwards. Patient seems to be moving her right side quite well, however the left side seems to be relatively weak although she was squeezing my hand with her left hand. And minimal movement noted in the left lower extremity. Patient is on Precedex, and seems to be agitated in spite of Precedex. Her ventilatory settings are reasonable, ABG is reasonable, patient is basically extubate overall, however her mental status is a bit concerning specially with her extreme agitation, keeps pulling and shaking the railing of the bed on the right side. Patient was given Ativan, and I have recommended increasing Precedex. She is not truly quite ready to be extubated today. Again my major concern is her mental status. And she is yet to be seen by neurology on consultation. Blood pressure is quite high, 160 systolic, norepinephrine was discontinued during my evaluation. She was on a very minimal dose of 0.1 mcg/kg/m of norepinephrine patient was also on milrinone. CBC is relatively normal hemoglobin is 7.4. ABG this morning showed a pO2 of 92 pCO2 of 38 pH of 7.45. This was on 50% FiO2. Electrolytes and renal profile are normal. Chest x-ray showed mostly postoperative changes of CABG 07/29/2020, I'm seeing the patient for a follow-up in the intensive care unit. This morning the patient is heavily sedated with propofol and she is calm and comfortable. Unfortunately with that, neurologic examination is not possible. I would suggest gradually cutting down the propofol and assess her neuro status and if needed utilize Precedex as an alternative sedative drip. Meanwhile, the patient remains essentially with enema to severe with a low dose of norep inephrine infusion running at 0.06 mcg/kg per minute. She has an adequate urine output. Cardiac rhythm is sinus. She has a left pleural and mediastinal chest tubes and output from those are in order of minimal, less than 100 over the past 24 hours. The chest x-ray showing cardiomegaly. There is some kyphoscoliosis of the chest. Chest tubes are in good location. ET tube is in good location. Atelectatic changes and some mild four-vessel congestion. Meanwhile, the patient's vent settings include an assist-control mode at the rate of 16 with a tidal volume of 450 and FiO2 of 40% with a PEEP of 5. The blood gases from this morning showed a pH of 7.49 with a pCO2 of 36 and pO2 of 82. On today's blood work, the patient's hemoglobin is down to 6.9 from 7.4. Platelets is at 210. 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 Intracranial cerebral arteries were essentially patent with nothing significantly stenotic. During our limited neurologic evaluation, the patient did not do mistreat any withdrawal with to painful stimulation. No Babinski. No clonus. Nevertheless, I was told by the nursing staff that she was able to move her right side yesterday and her left side once off sedation. Pupils are equal and reactive to light and order of 3 mm. No preferential gaze on today's evaluation. A sedation holiday will be given. She is on enteral nutrition. No other drips. No seizure activity. Neurologist on the case. She is on aspirin, Plavix, and she also on metoprolol 12.5 mg by mouth twice a day. She is also on high-dose statins. Progress note dated 05/29/2021. Currently, this is a 75-year-old female who was admitted to the hospital on July 21. She went to the operating room, on July 27 for a three-vessel bypass grafting with Dr. Alan. The patient has never been extubated. Unfortunately, she developed a right cerebellar CVA. She remains on the mechanical ventilator. She is currently on the volume assist control mode, rate is 16, tidal volume 400, FiO2 60%, and PEEP of 5. The blood gases show a PaO2 of 99, a PaCO2 of 40, and a pH of 7.44. She also remains on lactated Ringer's at 20 mL an hour, propofol was turned off for the spontaneous breathing trial, and she's been weaned off of norepinephrine. She is receiving vital AF, at a rate of 30 mL an hour, with a goal of 57 mL an hour. We placed the patient on pressure support of 5 CPAP of 5, and stayed in the room to observe her response to the spontaneous breathing trial. Unfortunately, the patient's respiratory rate went up above 40, and a tidal volumes dropped down to 200 range. Her m inute volume was quite high, and the patient was placed back on the volume assist control mode. After the failed spontaneous breathing trial, the patient's tidal volume was dropped down to 350, her FiO2 was decreased to 50%, and the peak level was increased from 5 to 8 cm water. White count is 12.8, hemoglobin 8, hematocrit 23.5, and platelet count 210,000. Blood gases have been reviewed. Sodium 139, potassium 3.6, chlorides 107, CO2 27, anion gap 5, BUN 33, and creatinine 0.64. Chest x-ray shows a right lower lobe infiltrate and my opinion. Progress note dated 07/31/2020 75-year-old female, that was admitted to the hospital on July 21. She went to the operating room on July 27 for a three-vessel bypass grafting with Dr. Alan. The patient has never been extubated and unfortunately, she developed a right cerebellar CVA. She currently remains on the ventilator, on the volume assist control modality. She is on a rate of 16, tidal volume 350, FiO2 50%, and a PEEP of 8. Arterial blood gases show a PaO2 of 76, PaCO2 44, and a pH of 7.4. The patient is getting lactated Ringer's at KVO, amiodarone at 0.5 mg/m, and propofol at 30 mcg/kg/m. In addition, the patient's on vital AF 1.2 at 57, with a goal of 57 mL an hour. Today, we attempted a daily interruption of se dation and a spontaneous breathing trial. As noted yesterday, she failed her trial. Today, we placed her on PSV 8, and CPAP of 5. Currently, she is doing a bit better today. A Dobbhoff tube was placed yesterday. Unfortunately, she appears to be weaker on the right side. The left side she does not move at all. In the end, she may end up with the tracheostomy tube and a ET tube. Yesterday, after the spontaneous breathing trial, the patient unfortunately developed atrial fibrillation with RVR, and that is why the patient is on amiodarone. The patient is seen today 08/01/2020 in follow-up in the intensive care unit. She remains intubated on the mechanical ventilator. Current settings assist- control of with a rate of 16, tidal volume 350, FiO2 50% and a PEEP of 8. Morning blood gases reveal a P O2 of 77, pCO2 of 40, pH 7.47. She remains sedated on propofol at 30 mcg/kg/m. Lactated Ringer's at KVO. She developed atrial fibrillation with rapid ventricular response. She is currently on amiodarone at 0.5 mg/m. She is being nourished with vital HP at 20 ML's per hour which is goal. She was given daily interruption of sedation. She develops A. fib RVR during a spontaneous breathing trials yesterday. We'll trial again today. His chest x-ray continues to show stable diffuse pleuroparenchymal changes. Endotracheal tube and gastric tubes are secured in place. Left-sided chest tube has been removed. PICC line in place. She is status post 1 unit of packed red blood cells this admission. Current hemoglobin 7.1. White count 13.6. Sodium 136. Potassium 3.5. Creatinine 0.55. AST 107. ALT 105. Albumin 2.7. She is continued on DuoNeb inhalations. Heparin for DVT prophylaxis. The patient is seen today 08/02/2020 in follow-up in the intensive care unit. She remains intubated and sedated. Currently on mechanical ventilator assist control mode at a rate of 16. Tidal volume 350. FiO2 40%. PEEP of 8. Morning blood gases reveal a P O2 of 100, pCO2 38, pH 7.49. This is on 50% FiO2. She is currently sedated on propofol at 35 mcg/kg/m. She remains on heparin drip. 0.9 normal saline at 20 ML's per hour. She is being nourished with vital HP 20 ML's per hour which is goal. She was given daily interruption of sedation yesterday she became extremely tachypneic with a respiratory rate in the 40s, not following any commands. Placed back on assist control. Trial again today. She has been having issues with atrial fibrillation. Transitioned to oral amiodarone. Chest x-ray reveals left-sided PICC line in place. Endotracheal and gastric tubes are stable. Vertebral column stimulator in place. There are bilateral infiltrates/pleural effusions. Diffusion interstitial pattern. No pneumothorax. She has received 1 unit of packed red blood cells this admission. Current hemoglobin 7.6. Platelets 387. White count 20.6. Sodium 137. Potas sium 3.9. Creatinine 0.50. AST 67. ALT 83. Albumin 2.8. The patient is seen today 08/03/2020 in follow-up in the intensive care unit. Postoperative day #7. She remains intubated and sedated on the mechanical ventilator. Current mode assist control with a rate of 16, tidal been 350, FiO2 40% and a PEEP of 8. Morning blood gases reveal pO2 of 90, pCO2 40, pH 7.49. Currently on propofol at 20 mcg/kg/m. Remains on heparin drip at weight-based protocol. Lactated Ringer's at 20 ML's per hour. She is being nourished with vital HP at 28 ML's per hour which is goal. Free water flushes at 30 MLS every 4 hours. Sputum culture pending. White count 20.5. Hemoglobin 7.7. Sodium 139. Potassium 3.9. Creatinine 0.53. AST 70, ALT 80. She remains on DuoNeb inhalations. Chest x-ray reveals good placement of the endotracheal tube and Dobbhoff tubes. Left sided PICC line in place. Bibasilar densities persist. Perihilar increase attenuation noted within the lungs, left hemidiaphragm remains obscured greater than right. Currently afebrile. Hemodynamically stable. Currently in atrial fibrillation with controlled ventricular rate. She responds to painful stimuli on the right. She did sustain an acute bilateral cerebellar ischemic stroke right greater than left as well as a subacute evolving ischemic infarction including the right MCA/TAZ watershed territory with left-sided hemiplegia. She has not tolerated daily interruption of sedation due to her becoming tachypneic, tachycardic and hypertensive. The patient is seen today 08/04/2020 and follow-up in the intensive care unit. Postoperative day #8. She remains intubated and sedated on mechanical ventilator. Current settings assist-control at a rate of 16, tidal volume 350, FiO2 40%, PEEP of 5. Blood gases reveal a P O2 of 81, pCO2 38, pH 7.51. She remains on propofol at 25 mcg/kg/m. Heparin per weight base protocol. Lactated Ringer's at 20 ML's per hour. She is being nourished with vital HP at 20 mL per hour which is goal. She is spontaneously moving her right arm and right leg. Not following any simple commands. She is status post 1 unit of packed red blood cells this admission. Current hemoglobin 6.9. White count 19.4. Sodium 138. Potassium 3.7. Creatinine 0.71. AST 117, ALT 106. Albumin 2.7. She was given a interruption of sedation and spontaneous breathing trial yesterday. She did develop atrial fibrillation with rapid ventricular response with hypertension, tachypnea. Placed back on mechanical ventilator. We'll trial again today. Plan is for possible tracheostomy and PEG tube placements on 08/06/2020. Chest x-ray continues to show cardiomegaly with mild central venous congestion and left greater than right bibasilar acute infiltrates. Small left pleural effusion. No significant change compared to previous. Sputum culture reveals no growth. Blood culture reveals no growth. She remains on bronchodilators, ceftriaxone. The patient is seen today 08/05/2020 in follow-up in the intensive care unit. Postoperative day #9. She remains intubated, sedated on the mechanical ventilator. Assist-control mode at a rate of 16, tidal been 350, FiO2 40% and a PEEP of 5. Morning blood gases reveal a P O2 of 66, pCO2 38, pH 7.4. She remains on a heparin drip or weight base protocol. Lactated Ringer's at 20 ML's per hour. Propofol at 40 mcg/kg/m. She is being nourished with vital HP at 28 ML's per hour which is goal. Chest x-ray reveals evidence of cardiomegaly with moderate central vascular congestion and left basilar small pleural effusion with associated acute infiltrate and/or atelectasis. A bit worse compared to yesterday. She was given Lasix 20 mg IVP 1. Remains on bronchodilators and on ceftriaxone. Repeat sputum culture pending. Status post 2 units of packed red blood cells this admission. White count 16.6. Hemoglobin 7.6. Sodium 137. Potassium 3.7. Creatinine 0.60. AST 142. ALT 156. Albumin 2.6. Glucose 106. Amiodarone was discontinued due to elevated LFTs. Currently rate-controlled atrial fibrillation. On 08/06/2020 him on seeing the patient for a follow-up in the intensive care unit. This patient is currently postop day number not 10. She had a comfort care postoperative course following her bypass surgeon and the patient had developed a stroke with altered mentation and she never got to a point where she was awake and alert and following commands and as such her extubation process of eating was quite complicated. She was always agitated, restless, not following commands and not following the weaning protocols. As such, the patient was kept sedated and the patient was kept on a mechanical ventilator. She had received daily sedation holidays. She is at the point where she is going to have a PEG and trach today done by general surgery. Meanwhile, the patient is on propofol running at 50 mcg/kg per minute and this morning she is calm and comfortable. She is on assist-control mode at the rate of 60 with a tidal volume of 350 and FiO2 of 40% with a PEEP of 5. The blood gases from today showed a pH of 7.4 With a pCO2 of 40 and pO2 of 71. Hemoglobin is at 7.3 and the patient received a unit of packed RBC on 08/04/2020 and hemoglobin has remained stable since. The patient had some mild disturbance in the liver function tests. Amiodarone has been discontinued. Current cardiac rhythm is sinus. The patient is on no pressors. The patient currently is receiving IV fluids in the form of D5 half-n ormal along with potassium supplements at the rate of 40 mL an hour. Neurologically, she does have a pressure gaze to the right upper quadrant area. Pupils are equal and reactive to light. She withdraws to painful similar ablation 04 extremities. Neurologist on the case. She does have a Dobbhoff and the patient is receiving enteral feeding in the form of vital high protein and currently the tube feeds on hold pending surgery. Blood sugars under adequate control. Urine output is adequate. 08/07/2020, I'm seeing the patient for a follow-up. The patient is postop day #11. The patient remains on a mechanical ventilator. Because of her prolonged arrest 30 failure and altered mental status post CVA, the patient required to have a PEG tube insertion and tracheostomy tube insertion. The procedure was done yesterday and today patient is postop day #1 post tracheostomy tube insertion. She is currently on assist control mode at the rate of 60 without a volume of 350 and FiO2 of 40% with a PEEP of 5. Blood gases showed a pH of 7.29 with a pCO2 of 45 and pO2 of 76. Hematocrit ventilation on the mechanical ventilator is around 8.5. The chest x-ray from today shows adequate positioning of the tracheostomy tube. The patient has a #[address] The patient has a left upper extremity PICC line. The patient has some mild pulmonary vascular congestion. There is cardiomegaly. Trace left-sided pleural effusion. No other abnormalities noted. Meanwhile, as the patient was being weaned off the propofol, the patient was at atrial fibrillation with rapid ventricular response around 10 PM. The patient currently is on propofol of 25 mcg/kg per minute. The patient's is being treated with amiodarone drip. She was started with a bolus and following that she is was maintained on 0.5 mg per minute. Her current rate is 118 and still irregular. White cell count is at 21.6 and hemoglobin is at 8.6. Renal function is stable with a creatinine of 0.57, nevertheless, the patient has developed a component of metabolic acidosis with a serum bicarbonate up from 31 down to 20 and the liver function tests remain to be of normal with a bilirubin of 0.7, AST of 80, AST of 124. Her pro- calcitonin from 08/03/2020 was 0.12. IV fluids are running with D5 half-normal saline at the rate of 60 and the patient is nothing by mouth for now. The plan is to start some enteral feeding for nutritional support. In terms of her atrial fibrillation, the patient is on amiodarone drip and she is also on metoprolol 25 mg by mouth 3 times a day. Objective - Vital Signs Vital signs: Vital Signs Temp 98.6 F 08/07/20 04:00 Pulse 120 H 08/07/20 06:00 Resp 22 08/07/20 06:00 BP 148/97 08/07/20 06:00 Pulse Ox 93 L 03/02/21 06:00 Intake & Output 08/06/20 08/06/20 08/07/20 06:59 18:59 06:59 Intake Total 650 1028.123 849.139 Output Total 810 870 890 Balance -160 158.123 -40.861 Weight 89.7 kg 89.7 kg 92.4 kg Intake: IV 100 750 700 D5-0.45% NaCl with KCl 400 700 20Meq/l 1,000 ml @ 60 mls /hr IV .[id number] [facility] Rx#: [id number] Lactated Ringers 1,000 ml 100 @ 20 mls/hr IV .Q24H [facility] Rx#:[id number] levETIRAcetam IV 500 mg 100 In Sodium Chloride 0.9% 100 ml @ 400 mls/hr IVPB Q12HR@0000,1200 [facility] Rx#: [id number] Intake, IV Titration 380 278.123 149.139 Amount D5-0.45% NaCl with KCl 280 40 20Meq/l 1,000 ml @ 60 mls /hr IV .[id number] [facility] Rx#: [id number] levETIRAcetam IV 500 mg 100 In Sodium Chloride 0.9% 100 ml @ 400 mls/hr IVPB Q12HR [facility] Rx#:[id number] propofoL 1,000 mg In 100 238.123 49.139 Empty Bag 1 bag @ Titrate IV .Q0M [facility] Rx#: [id number] Tube Feeding 140 Other 30 Output: Urine 810 865 890 Estimated Blood Loss 5 Other: Voiding Method Indwelling Catheter Indwelling Catheter Indwelling Catheter ABP, PAP, CO, CI - Last Documented Arterial Blood Pressure 113/55 Pulmonary Artery Pressure 40/20 Cardiac Output 4.3 Cardiac Index 2.2 - Exam Intubated, sedated 75-year-old female patient. Sedated on propofol. The patient is not responsive. She may have a sluggish response to deep painful stimulation. She does have a decline in her left upper extremity. Currently she has a tracheostomy tube in place which is a #7 Bivona tracheostomy tube. HEENT examination is grossly unremarkable. Mucous membranes are moist. There is a orally placed endotracheal tube, and the patient has a Dobbhoff catheter in place Neck supple. Full range of motion. No adenopathy thyromegaly or neck vein distention. Cardiovascular examination reveals an irregular rhythm and rate. Irregular S1- S2 consistent with atrial fibrillation with rapid ventricular response. Heart rate is around 120, irregular and the patient has his sternum which is intact and dry and clean and well-healed. Lungs reveal bilateral rhonchi. No wheezes or crackles. Breath sounds equal bilaterally., Sternal stable clean and intact and is well-healed Abdominal exam revealed normal bowel sounds. The abdomen was soft, non-tender, and without masses, organomegaly, or appreciable enlargement of the abdominal aorta. The patient has a PEG tube which is in place and exit site is dry clean and intact Extremities are intact. No cyanosis clubbing or edema. Skin is without rash or lesion. Neurologic examination she may grimace to painful stimulation. There may be some facial asymmetry with some left-sided weakness. Pupils are equal and reactive to light. I was unable to elicit any motor response on today's evaluation. Nevertheless, the patient had left-sided weakness. No clonus. Reflexes are diminished. Extremities symmetrical in all 4 extremities. Babinski could not be elicited. Does have a weak cough and a gag. - Labs CBC & Chem 7: 08/07/20 02:56 08/07/20 02:56 Labs: Abnormal Lab Results - Last 24 Hours (Table) 08/06/20 08/06/20 08/06/20 Range/Units 08:25 13:40 23:26 WBC (3.8-10.6) k/uL RBC (3.80-5.40) m/uL Hgb (11.4-16.0) gm/dL Hct (34.0-46.0) % Plt Count (150-450) k/uL APTT 31.7 H (22.0-30.0) sec ABG pH (7.35-7.45) ABG pO2 (83-108) mmHg ABG O2 Saturation (94-97) % Potassium (3.5-5.1) mmol/L Carbon Dioxide (22-30) mmol/L Glucose (74-99) mg/dL POC Glucose (mg/dL) 108 H 121 H (75-99) mg/dL Magnesium (1.6-2.3) mg/dL AST (14-36) U/L ALT (4-34) U/L Alkaline Phosphatase (38-126) U/L Total Protein (6.3-8.2) g/dL Albumin (3.5-5.0) g/dL 08/07/20 08/07/20 08/07/20 Range/Units 02:56 02:56 02:56 WBC 21.6 H (3.8-10.6) k/uL RBC 2.94 L (3.80-5.40) m/uL Hgb 8.6 L (11.4-16.0) gm/dL Hct 27.7 L (34.0-46.0) % Plt Count 739 H (150-450) k/uL APTT (22.0-30.0) sec ABG pH (7.35-7.45) ABG pO2 (83-108) mmHg ABG O2 Saturation (94-97) % Potassium 5.3 H (3.5-5.1) mmol/L Carbon Dioxide 20 L (22-30) mmol/L Glucose 122 H (74-99) mg/dL POC Glucose (mg/dL) (75-99) mg/dL Magnesium 2.4 H (1.6-2.3) mg/dL AST 80 H (14-36) U/L ALT 124 H (4-34) U/L Alkaline Phosphatase 181 H (38-126) U/L Total Protein 6.0 L (6.3-8.2) g/dL Albumin 3.3 L (3.5-5.0) g/dL 08/07/20 08/07/20 Range/Units 05:03 05:35 WBC (3.8-10.6) k/uL RBC (3.80-5.40) m/uL Hgb (11.4-16.0) gm/dL Hct (34.0-46.0) % Plt Count (150-450) k/uL APTT (22.0-30.0) sec ABG pH 7.29 L (7.35-7.45) ABG pO2 76 L (83-108) mmHg ABG O2 Saturation 93.9 L (94-97) % Potassium (3.5-5.1) mmol/L Carbon Dioxide (22-30) mmol/L Glucose (74-99) mg/dL POC Glucose (mg/dL) 138 H (75-99) mg/dL Magnesium (1.6-2.3) mg/dL AST (14-36) U/L ALT (4-34) U/L Alkaline Phosphatase (38-126) U/L Total Protein (6.3-8.2) g/dL Albumin (3.5-5.0) g/dL Microbiology - Last 24 Hours (Table) 08/05/20 08:30 Gram Stain - Preliminary Sputum Sputum Culture - Preliminary Gram Neg Bacilli Lali albicans 08/02/20 09:31 Blood Culture - Preliminary Blood No Growth after 96 hours Assessment and Plan Plan: 1 Status post three-vessel bypass grafting. The patient is postop day #11. The patient remains intubated on mechanical ventilator. This was a post operative course was quite complicated and the patient a neurologic event with left-sided weakness and right sided/study bilateral acute/subacute CVA. Neurologist on the case. There has been ongoing issues with mental status and difficulty in following commands. The patient remains unresponsive. Strongly suspect a brainstem infarct in combination with a cerebellar infarct causing altered mental status. She'll be further discussed with neurology. In view of the prolonged respiratory failure, the patient had a tracheostomy tube inserted yesterday the patient is postop day #1 post tracheostomy tube insertion and a PEG tube insertion. 2 acute hypoxemic respiratory failure and remains on the ventilator because of her recent ischemic CVA. Patient had prolonged respiratory failure due to postop CVA and the patient has a tracheostomy placed yesterday for ongoing respiratory support. 3 Postoperative acute/subacute right cerebellar infarct, complicated further by a lleft-sided hemiparesis. Suspected brainstem infarct in combination with a cerebellar infarct causing altered mentation and diminished level of consciousness. 4 Leukocytosis of unclear etiology 5 Remote history of non-small cell lung cancer, with previous lobectomy. 6 Prior history of tobacco use. 7 Mild COPD based on PFTs. 8 Family history of premature coronary artery disease. 9 History of hypertension. 10 Peripheral vascular occlusive disease. 11 Degenerative joint disease. 12 Hyperlipidemia. 13 Chronic insomnia. 14 History of postoperative anemia. 15 metabolic acidosis with a serum bicarbonate of the 20 16 new-onset atrial fibrillation with rapid ventricular response currently on amiodarone drip at 0.5 mg per minute. Plan: Continue ventilator support and increase the tidal volume up to 400 cc to washouts some of the CO2 along with underlying metabolic acidosis Keep the patient assist-control mode of ventilation no vent changes for today. Chest x-ray was reviewed and shows some mild four-vessel congestion. Small bilateral pleural effusion expected post surgery. Hemoglobin stableContinue the amiodarone drip for now and increase the metoprolol to 50 mg by mouth twice a day and start the patient IV heparin she gradually wean off the propofol and assess the patient's mental status the goal should be to get her of the propofol today hopefully We'll continue ceftriaxone for a temperature spike been going on earlier and currently she is afebrile. This was essentially emperic coverage. Empiric antiepileptic coverage with Chanel Rausch liver function tests, could be related to use of high-dose statins Switched IV fluids to D5 with 150 meq of sodium bicarbonate at 50 mL an hour Repeat the ABGs in the p.m. We will continue to follow and make further recommendations based on her clinical status Critical care evaluation, done more than 30 minutes. Time with Patient: Greater than 30
[2020-08-07 06:49] LABS: Band Neutrophils % 4 %; Eosinophils # (M) 0.64 k/uL (0-0.7); Lymphocytes # (M) 2.35 k/uL (1.0-4.8); Metamyelocytes # (M) 0.43 k/uL (0); Metamyelocytes % 2 %; Monocytes # (M) 0.64 k/uL (0-1.0); Neutrophils % (M) 79 %; Nucleated Red Blood Cells 1 /100 WBC (0-0); Total Cells Counted 200; WBC 21.4 k/uL (3.8-10.6)
[2020-08-07 06:51] LABS: Anisocytosis (M) Present; Polychromasia Present
[2020-08-07 06:53] LABS: Large Platelets Present
[2020-08-07] MEDS ORDERED: HEPARIN SOD,PORK IN 0.45% NACL 25,000 UNIT in 0.45% NACL 1 250ML.BAG IV SCH (07:15)
[2020-08-07] MEDS ORDERED: DEXTROSE 5% IN WATER 1,000 ML with SODIUM BICARB (1 MEQ/ML) 150 ML IV SCH (08:00)
--- NOTE | 2020-08-07 08:27 | XR ---
EXAMINATION TYPE: XR chest 1V portable DATE OF EXAM: 08/07/2020 COMPARISON: Chest x-ray 08/06/2020 HISTORY: Postop coronary artery bypass graft, abnormal chest x-ray TECHNIQUE: Single frontal view of the chest is obtained. FINDINGS: Tracheostomy tube overlies the tracheal air column, there is a left-sided PICC line with t he distal tip over the superior vena cava. No evident pneumothorax. Bibasilar increased density persi sts, cardiac mediastinal silhouette shows a similar appearance. Patient is post median sternotomy and left atrial appendage clip placement. There is a thoracic cord stimulator lead in place. There are s ome improved aeration at the lung bases. There is no evident pneumothorax. Interstitium remains prom inent. IMPRESSION: There is some improvement in aeration, volume status. Possible basilar effusion on the l eft. Correlate to exclude pneumonia.
[2020-08-07] MEDS: PANTOPRAZOLE 40 MG/10 ML VIAL IVP SCH (09:27)
[2020-08-07] MEDS: ASPIRIN 81 MG PO SCH (09:28)
[2020-08-07] MEDS: SERTRALINE 100 MG TAB PO SCH (09:28)
[2020-08-07] MEDS: METOPROLOL TARTRATE 50 MG TAB PO SCH ×2 (09:28→19:53)
[2020-08-07] MEDS: CHLORHEXIDINE GLUCONATE 15 ML CUP MUCOUS MEM SCH ×2 (09:28→19:53)
--- NOTE | 2020-08-07 11:02 | P.PN ---
Subjective Progress Note Date: 08/07/20 Principal diagnosis: Triple-vessel coronary artery disease, unstable angina. Past medical history significant for coronary artery disease with previous myocardial infarction and stent placement, peripheral arterial disease with lower extremity stenting, lung cancer status post right lower lobectomy in 2011, hypertension, hyperlipidemia, COPD with previous tobacco dependence, anxiety/depression, family history of premature coronary artery disease with 2 of her sons having had coronary artery bypass grafting surgery, significant plaque formation more than 75% stenosis at the origins of both internal and external carotid arteries bilaterally on CTA. POD #11 coronary artery bypass grafting 3 vessels, left internal mammary artery to the left anterior descending artery, a reverse greater saphenous vein graft to the obtuse marginal artery, a reverse greater saphenous vein graft to the posterior descending artery, endoscopic harvesting of the right greater saphenous vein, ligation of the left atrial appendage using a 35 mm AtriClip, epi-aortic ultrasound and intraoperative transesophageal echocardiogram. POD #1 tracheostomy tube placement #[address] Alan. POD #1 EGD with her cutaneous endoscopic gastrostomy tube placement by Dr. Chavarria. Postoperative acute blood loss anemia, expected given hemodilution and cardiopulmonary bypass pump. Postoperative right acute/subacute cerebellar infarct on brain CT, unexpected, although possible complication of any open heart surgery, especially given patient's known history of significant arterial disease. Prolonged mechanical ventilation, unexpected, secondary to acute stroke. Paroxysmal atrial fibrillation, known common occurrence after open heart surgery. The patient was seen in follow-up today 08/07/2020 at her bedside in the intensive care unit. Currently she is laying in bed, remain sedated on propofol drip at 20 mcg/kg/m. She is not following any verbal commands at this time. She is withdrawing from noxious stimuli all 4 extremities. She remains intubated with mechanical ventilator support, current mechanical or settings are assist control 16, tidal volume 400, FiO2 40% and PEEP of 5. ABG results this morning show a pH of 7.29, pCO2 45, pO2 76, HCO3 22, oxygen saturation 93.9, base excess -5.0. Oxygen saturation is on current mechanical bladder settings are 96%. Her T-max temperature in the last 24 hours is 99.2F. She remains on Rocephin for antibiotic coverage. Laboratory results this morning show a WBC count trending up and is 21.4, hemoglobin 8.6, hematocrit 27.7, platelets 739, sodium 137, potassium 5.3, BUN 16, and creatinine 0.57. Left upper extremity PICC line remains in place and functioning. Bedside telemetry showing atrial fibrillation with RVR heart rate 116 BPM. Currently on amiodarone drip per protocol at 0.5 mg/m. Tube feedings remain on hold as she had her PEG tube placed yesterday and has IV fluids running at D5 0.45 with 20 KCl at 60 mL per hour. Tube feedings will be restarted today after 24 hours of the PEG tube being placed. Heparin drip infusing per protocol. A chest x-ray was completed this morning which shows some improvement in aeration, and adequate positioning of her tracheostomy tube. Objective - Vital Signs Vital signs: Vital Signs Temp 98.6 F 08/07/20 04:00 Pulse 122 H 08/07/20 07:00 Resp 20 08/07/20 07:00 BP 153/101 08/07/20 07:00 Pulse Ox 93 L 08/07/20 07:00 Intake & Output 08/06/20 08/07/20 08/07/20 18:59 06:59 18:59 Intake Total 1028.123 949.139 60 Output Total 870 890 35 Balance 158.123 59.139 25 Weight 89.7 kg 92.4 kg Intake: IV 750 700 60 D5-0.45% NaCl with KCl 400 700 60 20Meq/l 1,000 ml @ 60 mls /hr IV .[id number] [facility] Rx#: [id number] levETIRAcetam IV 500 mg 100 In Sodium Chloride 0.9% 100 ml @ 400 mls/hr IVPB Q12HR@0000,1200 [facility] Rx#: [id number] Intake, IV Titration 278.123 249.139 Amount D5-0.45% NaCl with KCl 40 20Meq/l 1,000 ml @ 60 mls /hr IV .[id number] [facility] Rx#: [id number] levETIRAcetam IV 500 mg 100 In Sodium Chloride 0.9% 100 ml @ 400 mls/hr IVPB Q12HR [facility] Rx#:[id number] propofoL 1,000 mg In 238.123 149.139 Empty Bag 1 bag @ Titrate IV .Q0M IN[facility]S Rx#: [id number] Output: Urine 865 890 35 Estimated Blood Loss 5 Other: Voiding Method Indwelling Catheter Indwelling Catheter ABP, PAP, CO, CI - Last Documented Arterial Blood Pressure 113/55 Pulmonary Artery Pressure 40/20 Cardiac Output 4.3 Cardiac Index 2.2 - Exam The patient remains intubated with mechanical ventilator support. Currently sedated on propofol drip at 20 mcg/kg/m. She continues to respond to noxious stimuli to her bilateral upper and lower extremities. Not following any verbal commands at this time. - EENT EENT Comment(s): Scleral edema Eyes: Present: PERRLA. Absent: scleral icterus - Neck Details: Neck is supple, no JVD, no lymphadenopathy. - Respiratory Details: Lung sounds with few scattered rhonchi throughout. Diminished bilateral bases. Respirations are symmetrical and nonlabored with mechanical ventilator support. Oxygen saturations are 96% on current mechanical ventilator settings. Current mechanical ventilator settings are assist control 16, TV 400, FiO2 40% PEEP 5. #[address] and midline. - Cardiovascular Details: Irregular rhythm and tachycardic rate. S1 and S2 present, negative for S3, gallop or murmur. Bedside telemetry showing atrial fibrillation with RVR heart rate 116 BPM. Sternum is stable. Heart hugger is in place. Knee-high DEBI hose and sequential compression devices in place were bilateral lower extent maze. Generalized +1 edema. - Gastrointestinal Gastrointestinal Comment(s): Abdomen soft, and nondistended. Hypoactive bowel sounds present in all 4 abdominal quadrants. No organomegaly appreciated. PEG tube in place to her left upper quadrant abdomen. - Genitourinary Genitourinary Comment(s): Da Silva catheter for accurate I&O. Draining clear yellow urine. 580 ml output in the last 8 hours. - Integumentary Integumentary Comment(s): Skin is warm and dry. No clubbing or cyanosis present. Midline sternal incision is clean, dry and approximated. No drainage or redness is present. Right lower extremity EVH site is clean, dry and approximated. Tracheostomy site is clean and dry. PEG tube site is clean and dry. - Neurologic Neurologic Comment(s): Unable to accurately assess at this time as the patient is sedated on a propofol drip at 20 mcg/kg/m. Does withdrawal and grimace from noxious stimuli although is not following any verbal commands at this time. - Musculoskeletal Musculoskeletal Comment(s): Unable to accurately assess at this time as the patient is sedated on a propofol drip at 20 mcg/kg/m. Does withdrawal from noxious stimuli although is not following any verbal commands at this time. - Psychiatric Psychiatric Comment(s): Unable to accurately assess at this time as the patient is sedated on a propofol drip at 20 mcg/kg/m. Does withdrawal from noxious stimuli although is not following any verbal commands at this time. - Allied health notes Allied health notes reviewed: nursing - Labs CBC & Chem 7: 08/07/20 02:56 08/07/20 02:56 Labs: Abnormal Lab Results - Last 24 Hours (Table) 08/06/20 08/06/20 08/07/20 Range/Units 13:40 23:26 02:56 WBC 21.4 H (3.8-10.6) k/uL RBC 2.94 L (3.80-5.40) m/uL Hgb 8.6 L (11.4-16.0) gm/dL Hct 27.7 L (34.0-46.0) % Plt Count 739 H (150-450) k/uL Neutrophils # (Manual) 17.70 H (1.3-7.7) k/uL Metamyelocytes # (Man) 0.43 H (0) k/uL Nucleated RBCs 1 H (0-0) /100 WBC ABG pH (7.35-7.45) ABG pO2 (83-108) mmHg ABG O2 Saturation (94-97) % Potassium (3.5-5.1) mmol/L Carbon Dioxide (22-30) mmol/L Glucose (74-99) mg/dL POC Glucose (mg/dL) 108 H 121 H (75-99) mg/dL Magnesium (1.6-2.3) mg/dL AST (14-36) U/L ALT (4-34) U/L Alkaline Phosphatase (38-126) U/L Total Protein (6.3-8.2) g/dL Albumin (3.5-5.0) g/dL 08/07/20 08/07/20 08/07/20 Range/Units 02:56 02:56 05:03 WBC (3.8-10.6) k/uL RBC (3.80-5.40) m/uL Hgb (11.4-16.0) gm/dL Hct (34.0-46.0) % Plt Count (150-450) k/uL Neutrophils # (Manual) (1.3-7.7) k/uL Metamyelocytes # (Man) (0) k/uL Nucleated RBCs (0-0) /100 WBC ABG pH 7.29 L (7.35-7.45) ABG pO2 76 L (83-108) mmHg ABG O2 Saturation 93.9 L (94-97) % Potassium 5.3 H (3.5-5.1) mmol/L Carbon Dioxide 20 L (22-30) mmol/L Glucose 122 H (74-99) mg/dL POC Glucose (mg/dL) (75-99) mg/dL Magnesium 2.4 H (1.6-2.3) mg/dL AST 80 H (14-36) U/L ALT 124 H (4-34) U/L Alkaline Phosphatase 181 H (38-126) U/L Total Protein 6.0 L (6.3-8.2) g/dL Albumin 3.3 L (3.5-5.0) g/dL 08/07/20 Range/Units 05:35 WBC (3.8-10.6) k/uL RBC (3.80-5.40) m/uL Hgb (11.4-16.0) gm/dL Hct (34.0-46.0) % Plt Count (150-450) k/uL Neutrophils # (Manual) (1.3-7.7) k/uL Metamyelocytes # (Man) (0) k/uL Nucleated RBCs (0-0) /100 WBC ABG pH (7.35-7.45) ABG pO2 (83-108) mmHg ABG O2 Saturation (94-97) % Potassium (3.5-5.1) mmol/L Carbon Dioxide (22-30) mmol/L Glucose (74-99) mg/dL POC Glucose (mg/dL) 138 H (75-99) mg/dL Magnesium (1.6-2.3) mg/dL AST (14-36) U/L ALT (4-34) U/L Alkaline Phosphatase (38-126) U/L Total Protein (6.3-8.2) g/dL Albumin (3.5-5.0) g/dL Microbiology - Last 24 Hours (Table) 08/05/20 08:30 Gram Stain - Final Sputum Sputum Culture - Final Klebsiella oxytoca Lali albicans 08/02/20 09:31 Blood Culture - Preliminary Blood No Growth after 96 hours - Imaging and Cardiology Chest x-ray: report reviewed, image reviewed Assessment and Plan Assessment: 1. Triple-vessel coronary artery disease, unstable angina, status post three- vessel CABG 2. History of coronary artery disease with previous myocardial infarction and stent placement 3. Peripheral arterial disease with lower extremity stenting 4. History of lung cancer status post right lower lobectomy 5. Hypertension, currently hypotensive requiring IV pressors 6. Hyperlipidemia, treated, cholesterol 152, LDL 85 7. COPD with previous tobacco dependence, preoperative FEV1 82% of predicted 8. Anxiety/depression 9. Family history of premature coronary artery disease 10. Postoperative acute blood loss anemia, expected, status post 1 unit packed red blood cell transfusion 11. Postoperative acute/subacute right cerebellar infarct, unexpected, with evidence of previous right parietal stroke 12. Bilateral internal carotid artery disease greater than 75% present on CTA 13. Prolonged mechanical ventilation 14. Paroxysmal atrial fibrillation, status post ligation of the left atrial appendage, currently sinus rhythm 15. Leukocytosis, final sputum culture results shows Klebsiella oxytoca and Lali albicans. Plan: 1. Continue aspirin, statin and beta tran. Metoprolol tartrate was increased to 50 mg G-tube twice a day. 2. Routine tracheostomy care. 3. Mechanical ventilator management per pulmonology/critical care management. Bronchodilators per pulmonology/critical care management. 4. The patient son Christian has been updated on her care. 5. Continue to monitor daily labs and chest x-rays. Electrolyte replacement per protocol. 6. GI and DVT prophylaxis. 7. Continue to wean sedation as much as possible to be able to assess neuro status. 8. Continue Da Silva catheter and record accurate I's and O's. 9. Pain control with current when necessary orders. 10. Strict accurate intake and output. Daily weights 11. Final result of sputum culture showing Klebsiella oxytoca, currently on Rocephin for antibiotic treatment. Has been afebrile the last 24 hours. 12. More recommendations to follow based on patient's clinical course. Time with Patient: Greater than 30
[2020-08-07 11:17] LABS: Glucose,Whole Blood 131 mg/dL (75-99)
[2020-08-07] MEDS: levETIRAcetam IV 500 MG in SODIUM CHLORIDE 0.9% 100 ML IVPB SCH (11:19)
--- NOTE | 2020-08-07 11:45 | CDI ---
Documentation Clarification Form Date: 08/03/2020 02:40:00 PM From: Christin Zuniga RN, CCDS Admit Date: 07/21/2020 08:17:00 AM Patient Name: Whitney Arguello Visit Number: [id number] Discharge Date: ATTENTION: The Clinical Documentation Specialists (CDI) and [facility] Coding Staff appreciate your assistance in clarifying documentation. Please respond to the clarification below the line at the bottom and electronically sign. The CDI & [facility] Coding staff will review the response and follow-up if needed. Please note: Queries are made part of the Legal Health Record. If you have any questions, please contact the author of this message via ITS. Dr. Yamil Alan 08/06 Acute hypoxemic respiratory failure is documented in the pulmonary progress notes with failure to wean. Please further specify. Patients Admitting Diagnosis: Coronary artery disease Post-Operative Diagnosis: Same 07/27 Procedure performed: Coronary artery bypass grafting x3 vessels, Ligation of left atrial appendage Respiratory failure was documented 08/03/20 in the cardiology impression. She is post CABG on 07/27 prolonged mechanical ventilation and has failed to wean. History/Risk Factors: NSTEMI, CHF, Triple-vessel coronary artery disease, Peripheral arterial disease, COPD, previous tobacco dependence Clinical Indicators: 75-year-old female who present to ED on 07/21 and ruled in for [id number] elevation infarction. She had severe triple-vessel coronary artery disease, underwent coronary artery bypass grafting. During her initial weaning she was found to have left-side weakness. CT of the head 07/27 showed acute/subacute area of infarction in the right cerebellum. 08/05 Pulmonary progress note: Postoperative day #9 poorly responsive, is sedated, and on mechanical ventilation. For the spontaneous breathing trial, the patient was off sedation, is still minimally responsive. Treatment: ICU Monitoring Mechanical ventilator monitoring per pulmonary Intubation with Mechanical ventilation 07/27 and current on 08/06 08/06 Peg tube placement 08/06 Open Tracheostomy In your professional opinion, can you please clarify if the acute hypoxemic respiratory failure: -is a complication of surgical procedure -is an expected outcome of the surgical procedure -is related to co-morbid condition(s) of (specify) -Other please specify -Unable to determine (Last Revision: July 2019) 13.Prolonged mechanical ventilation, unexpected acute hypoxemic respiratory failure because of her recent CVA, status post tracheostomy placement MTDD
--- NOTE | 2020-08-07 15:12 | P.PN ---
Subjective Progress Note Date: 08/07/20 CHIEF COMPLAINT: Malnutrition HISTORY OF PRESENT ILLNESS: Patient seen and examined with Dr. pena. Ramirez whiting is in the ICU. She is status post PEG tube placement by Dr. pena on 08/06/2020. Tube feedings are scheduled to be started today. She is status post tracheostomy placement by Dr. Alan. Patient is intubated and sedated. Afebrile WBC 21.4 albumin 3.3 PHYSICAL EXAM: VITAL SIGNS: Reviewed. GENERAL: Well-developed in no acute distress. HEENT: No sclera icterus. Extraocular movements grossly intact. Moist buccal mucosa. Head is atraumatic, normocephalic. ABDOMEN: Soft. Nondistended. Nontender. PEG tube site clean dry and intact NEUROLOGIC: Alert and oriented. Cranial nerves II through XII grossly intact. ASSESSMENT: 1. Moderate protein calorie malnutrition status post PEG tube placement PLAN: -Continue supportive care -Titrate PEG tube feedings per dietitian recommendations Physician Manga Artist note has been reviewed by physician. Signing provider agrees with the documented findings, assessment, and plan of care. Objective - Vital Signs Vital signs: Vital Signs Temp 97.9 F 08/07/20 12:00 Pulse 60 08/07/20 13:00 Resp 21 08/07/20 13:00 BP 142/74 08/07/20 13:00 Pulse Ox 99 08/07/20 13:00 Intake & Output 08/06/20 08/07/20 08/07/20 18:59 06:59 18:59 Intake Total 1028.123 429.936 5495.009 Output Total 870 890 305 Balance 158.123 59.139 877.009 Weight 89.7 kg 92.4 kg Intake: IV 611 671 0250 D5-0.45% NaCl with KCl 400 700 60 20Meq/l 1,000 ml @ 60 mls /hr IV .[id number] [facility] Rx#: [id number] Dextrose 5% in Water 1, 805 000 ml @ 50 mls/hr IV . Q23H IN[facility]S with Sodium Bicarb (1 Meq/ml) 150 ml Rx#:[id number] cefTRIAXone 1 gm In 100 Sodium Chloride 0.9% 50 ml @ 100 mls/hr IVPB Q24HR IN[facility]S Rx#:[id number] levETIRAcetam IV 500 mg 100 100 In Sodium Chloride 0.9% 100 ml @ 400 mls/hr IVPB Q12HR@0000,1200 [facility] Rx#: [id number] Intake, IV Titration 278.123 249.139 71.009 Amount D5-0.45% NaCl with KCl 40 20Meq/l 1,000 ml @ 60 mls /hr IV .[id number] IN[facility]S Rx#: [id number] levETIRAcetam IV 500 mg 100 In Sodium Chloride 0.9% 100 ml @ 400 mls/hr IVPB Q12HR IN[facility]S Rx#:[id number] propofoL 1,000 mg In 238.123 149.139 71.009 Empty Bag 1 bag @ Titrate IV .Q0M IN[facility]S Rx#: [id number] Tube Feeding 46 Output: Urine 865 890 305 Estimated Blood Loss 5 Other: Voiding Method Indwelling Catheter Indwelling Catheter Indwelling Catheter ABP, PAP, CO, CI - Last Documented Arterial Blood Pressure 113/55 Pulmonary Artery Pressure 40/20 Cardiac Output 4.3 Cardiac Index 2.2 - Labs CBC & Chem 7: 08/07/20 02:56 08/07/20 02:56 Labs: Abnormal Lab Results - Last 24 Hours (Table) 08/06/20 08/07/20 08/07/20 Range/Units 23:26 02:56 02:56 WBC 21.4 H (3.8-10.6) k/uL RBC 2.94 L (3.80-5.40) m/uL Hgb 8.6 L (11.4-16.0) gm/dL Hct 27.7 L (34.0-46.0) % Plt Count 739 H (150-450) k/uL Neutrophils # (Manual) 17.70 H (1.3-7.7) k/uL Metamyelocytes # (Man) 0.43 H (0) k/uL Nucleated RBCs 1 H (0-0) /100 WBC ABG pH (7.35-7.45) ABG pO2 (83-108) mmHg ABG O2 Saturation (94-97) % Potassium 5.3 H (3.5-5.1) mmol/L Carbon Dioxide 20 L (22-30) mmol/L Glucose 122 H (74-99) mg/dL POC Glucose (mg/dL) 121 H (75-99) mg/dL Magnesium (1.6-2.3) mg/dL AST 80 H (14-36) U/L ALT 124 H (4-34) U/L Alkaline Phosphatase 181 H (38-126) U/L Total Protein 6.0 L (6.3-8.2) g/dL Albumin 3.3 L (3.5-5.0) g/dL 08/07/20 08/07/20 08/07/20 Range/Units 02:56 05:03 05:35 WBC (3.8-10.6) k/uL RBC (3.80-5.40) m/uL Hgb (11.4-16.0) gm/dL Hct (34.0-46.0) % Plt Count (150-450) k/uL Neutrophils # (Manual) (1.3-7.7) k/uL Metamyelocytes # (Man) (0) k/uL Nucleated RBCs (0-0) /100 WBC ABG pH 7.29 L (7.35-7.45) ABG pO2 76 L (83-108) mmHg ABG O2 Saturation 93.9 L (94-97) % Potassium (3.5-5.1) mmol/L Carbon Dioxide (22-30) mmol/L Glucose (74-99) mg/dL POC Glucose (mg/dL) 138 H (75-99) mg/dL Magnesium 2.4 H (1.6-2.3) mg/dL AST (14-36) U/L ALT (4-34) U/L Alkaline Phosphatase (38-126) U/L Total Protein (6.3-8.2) g/dL Albumin (3.5-5.0) g/dL 08/07/20 Range/Units 11:15 WBC (3.8-10.6) k/uL RBC (3.80-5.40) m/uL Hgb (11.4-16.0) gm/dL Hct (34.0-46.0) % Plt Count (150-450) k/uL Neutrophils # (Manual) (1.3-7.7) k/uL Metamyelocytes # (Man) (0) k/uL Nucleated RBCs (0-0) /100 WBC ABG pH (7.35-7.45) ABG pO2 (83-108) mmHg ABG O2 Saturation (94-97) % Potassium (3.5-5.1) mmol/L Carbon Dioxide (22-30) mmol/L Glucose (74-99) mg/dL POC Glucose (mg/dL) 131 H (75-99) mg/dL Magnesium (1.6-2.3) mg/dL AST (14-36) U/L ALT (4-34) U/L Alkaline Phosphatase (38-126) U/L Total Protein (6.3-8.2) g/dL Albumin (3.5-5.0) g/dL Microbiology - Last 24 Hours (Table) 08/02/20 09:31 Blood Culture - Preliminary Blood No Growth after 120 hours 08/05/20 08:30 Gram Stain - Final Sputum Sputum Culture - Final Klebsiella oxytoca Lali albicans
[2020-08-07] MEDS: HYDROcodone/APAP 5-325MG 1 EACH TAB PO PRN (16:02)
[2020-08-07] MEDS: ARTIFICIAL TEARS OINTMENT 3.5 GM TUBE BOTH EYES SCH ×2 (16:06→20:04)
--- NOTE | 2020-08-07 16:55 | P.PN ---
Subjective This is a 75-year-old female past medical history significant for coronary artery disease with previous myocardial infarction and stent placement, peripheral artery disease with lower extremity stenting, lung cancer s/p right lower lobectomy in 2011, hypertension, hyperlipidemia, COPD with previous tobacco dependence quit in 2011. Presented with NSTEMI. She presented to the emergency department at [facility] with complaints of midsternal chest discomfort radiating to her back and down bilateral arms, transferred to [facility]. On 07/22- Patient underwent cardiac catheterization and found to have severe triple-vessel coronary artery disease with significant disease in the proximal LAD, mid LAD, obtuse marginal branch and the right coronary artery in the long segment. Echo revealed normal left ventricular systolic function EF 50-55% with mild aortic stenosis. She underwent coronary artery bypass grafting x 3 vessels, ligation of the left atrial appendage on 07/27. Post-operatively, 07/28, while patient being weaned off sedation, patient was found to have left-sided weakness, deviation of the head to the right side, was not following commands. CT brain revealed acute/subacute ischemic infarction the right cerebellum. Patient is seen and examined this morning around 0815. Patient underwent tracheostomy and PEG tube placement 08/06/20. Overnight, she went into atrial fibrillation with RVR 10 PM. Patient was started on amiodarone drip, started with a bolus and following that she was maintained on 0.5 mg/min. She is on mechanical ventilation and sedated on propofol drip. She is not following any verbal commands. Vent setting AC tidal volume 400 FiO2 40% and PEEP of 5. Laboratory data reviewed, WBC 21.4, Hgb 8.6, Plt 739, Na 137, K 5.3, sCr 0.57, AST 80, ALT 124, Alk Phos 181. Current cardiac medications include: amiodarone 0.5mg/min, aspirin 81mg daily, Lipitor 80mg nightly, heparin gtt, lopressor 50 mg TID, PHYSICAL EXAMINATION Vital signs BP cuff 153/101 HR 122 SpO2 99% afebrile today. HEENT: Mucous membranes moist CHEST EXAMINATION: Bilateral rhonchi, no wheezes or crackles. Breath sounds are equal bilaterally HEART EXAMINATION: Irregular rhythm and rate S1, S2 heard. No murmurs, gallops or rub. Inscision clean dry intact ABDOMEN: Soft, Positive bowel sounds. EXTREMITIES: 2+ peripheral pulses, 2+ pitting edema, LUE PICC SKIN: No rashes NEUROLOGIC: Facial asymmetry, left sided weakness. Pupils are equal. Unable to elicit a motor response. Not following commands. ASSESSMENT NSTEMI, s/p three vessel CABG Respiratory failure, status post CABG requiring tracheostomy and PEG tube placement Cerebrovascular accident post-operatively after CABG Paroxysmal atrial fibrillation with RVR after CABG History of coronary artery disease with previous myocardial infarction and stent placement Peripheral artery disease with lower extremity stenting History of Hypertension Hyperlipidemia History of lung cancer PLAN -Continue present therapy with amiodarone drip for now and Lopressor increased from 25mg TID to 50mg TID today. -Patient on heparin gtt for anticoagulation -Continue Aspirin and Statin -Depending on patient's progress, further recommendation will be made. Nurse Practitioner note has been reviewed, I agree with a documented findings and plan of care. Patient was seen and examined. Objective - Vital Signs Vital signs: Vital Signs Temp 97.9 F 08/07/20 12:00 Pulse 63 08/07/20 15:00 Resp 26 H 08/07/20 15:20 BP 146/72 08/07/20 15:00 Pulse Ox 99 08/07/20 15:00 Intake & Output 08/06/20 08/07/20 08/07/20 18:59 06:59 18:59 Intake Total 1028.123 769.929 2393.009 Output Total 870 890 345 Balance 158.123 59.139 887.009 Weight 89.7 kg 92.4 kg Intake: IV 220 039 9838 D5-0.45% NaCl with KCl 400 700 60 20Meq/l 1,000 ml @ 60 mls /hr IV .[id number] [facility] Rx#: [id number] Dextrose 5% in Water 1, 855 000 ml @ 50 mls/hr IV . Q23H [facility] with Sodium Bicarb (1 Meq/ml) 150 ml Rx#:[id number] cefTRIAXone 1 gm In 100 Sodium Chloride 0.9% 50 ml @ 100 mls/hr IVPB Q24HR [facility] Rx#:[id number] levETIRAcetam IV 500 mg 100 100 In Sodium Chloride 0.9% 100 ml @ 400 mls/hr IVPB Q12HR@0000,1200 [facility] Rx#: [id number] Intake, IV Titration 278.123 249.139 71.009 Amount D5-0.45% NaCl with KCl 40 20Meq/l 1,000 ml @ 60 mls /hr IV .[id number] [facility] Rx#: [id number] levETIRAcetam IV 500 mg 100 In Sodium Chloride 0.9% 100 ml @ 400 mls/hr IVPB Q12HR [facility] Rx#:[id number] propofoL 1,000 mg In 238.123 149.139 71.009 Empty Bag 1 bag @ Titrate IV .Q0M [facility] Rx#: [id number] Tube Feeding 46 Output: Urine 865 890 345 Estimated Blood Loss 5 Other: Voiding Method Indwelling Catheter Indwelling Catheter Indwelling Catheter ABP, PAP, CO, CI - Last Documented Arterial Blood Pressure 113/55 Pulmonary Artery Pressure 40/20 Cardiac Output 4.3 Cardiac Index 2.2 - Labs CBC & Chem 7: 08/07/20 02:56 08/07/20 02:56 Labs: Abnormal Lab Results - Last 24 Hours (Table) 08/06/20 08/07/20 08/07/20 Range/Units 23:26 02:56 02:56 WBC 21.4 H (3.8-10.6) k/uL RBC 2.94 L (3.80-5.40) m/uL Hgb 8.6 L (11.4-16.0) gm/dL Hct 27.7 L (34.0-46.0) % Plt Count 739 H (150-450) k/uL Neutrophils # (Manual) 17.70 H (1.3-7.7) k/uL Metamyelocytes # (Man) 0.43 H (0) k/uL Nucleated RBCs 1 H (0-0) /100 WBC ABG pH (7.35-7.45) ABG pO2 (83-108) mmHg ABG O2 Saturation (94-97) % Potassium 5.3 H (3.5-5.1) mmol/L Carbon Dioxide 20 L (22-30) mmol/L Glucose 122 H (74-99) mg/dL POC Glucose (mg/dL) 121 H (75-99) mg/dL Magnesium (1.6-2.3) mg/dL AST 80 H (14-36) U/L ALT 124 H (4-34) U/L Alkaline Phosphatase 181 H (38-126) U/L Total Protein 6.0 L (6.3-8.2) g/dL Albumin 3.3 L (3.5-5.0) g/dL 08/07/20 08/07/20 08/07/20 Range/Units 02:56 05:03 05:35 WBC (3.8-10.6) k/uL RBC (3.80-5.40) m/uL Hgb (11.4-16.0) gm/dL Hct (34.0-46.0) % Plt Count (150-450) k/uL Neutrophils # (Manual) (1.3-7.7) k/uL Metamyelocytes # (Man) (0) k/uL Nucleated RBCs (0-0) /100 WBC ABG pH 7.29 L (7.35-7.45) ABG pO2 76 L (83-108) mmHg ABG O2 Saturation 93.9 L (94-97) % Potassium (3.5-5.1) mmol/L Carbon Dioxide (22-30) mmol/L Glucose (74-99) mg/dL POC Glucose (mg/dL) 138 H (75-99) mg/dL Magnesium 2.4 H (1.6-2.3) mg/dL AST (14-36) U/L ALT (4-34) U/L Alkaline Phosphatase (38-126) U/L Total Protein (6.3-8.2) g/dL Albumin (3.5-5.0) g/dL 08/07/20 Range/Units 11:15 WBC (3.8-10.6) k/uL RBC (3.80-5.40) m/uL Hgb (11.4-16.0) gm/dL Hct (34.0-46.0) % Plt Count (150-450) k/uL Neutrophils # (Manual) (1.3-7.7) k/uL Metamyelocytes # (Man) (0) k/uL Nucleated RBCs (0-0) /100 WBC ABG pH (7.35-7.45) ABG pO2 (83-108) mmHg ABG O2 Saturation (94-97) % Potassium (3.5-5.1) mmol/L Carbon Dioxide (22-30) mmol/L Glucose (74-99) mg/dL POC Glucose (mg/dL) 131 H (75-99) mg/dL Magnesium (1.6-2.3) mg/dL AST (14-36) U/L ALT (4-34) U/L Alkaline Phosphatase (38-126) U/L Total Protein (6.3-8.2) g/dL Albumin (3.5-5.0) g/dL Microbiology - Last 24 Hours (Table) 08/02/20 09:31 Blood Culture - Preliminary Blood No Growth after 120 hours 08/05/20 08:30 Gram Stain - Final Sputum Sputum Culture - Final Klebsiella oxytoca Lali albicans
[2020-08-07 17:43] LABS: Glucose,Whole Blood 171 mg/dL (75-99)
[2020-08-07] MEDS: SENNOSIDES-DOCUSATE SODIUM 1 EACH TAB PO SCH (19:53)
[2020-08-07] MEDS: ATORVASTATIN 80 MG TAB PO SCH (19:53)
[2020-08-07] MEDS: EZETIMIBE 10 MG TAB PO SCH (20:04)
[2020-08-07] MEDS ORDERED: AMIODARONE 200 MG TAB PEG/G-TUBE SCH (21:00)
--- NOTE | 2020-08-08 01:23 | P.PN ---
Subjective 08/03/2020 This is a pleasant 75-year-old patient of Dr. Derrick Neal. Chronic stable medical conditions include COPD, hyperlipidemia, hypertension, ostial arthritis, lung cancer 6 years ago, peripheral artery disease, coronary artery stent, perip heral stents, anxiety depression. Patient presented after she was having central chest pressure at home then went to both the shoulder blades for the arms. Admitted with unstable angina. underwent cardiac catheterization. Found to have severe triple-vessel coronary artery disease. Pulmonary team evaluated the patient and told her low risk for surgery. July 27-underwent coronary bypass 3, ligation of left atrial appendage. Patient received a unit of blood.postsurgery was found to have weakness on the left side.stroke was noted on the computed tomography scan. Including lacunar infarct.patient has been in and out of atrial fibrillation. computed tomography scan of the brain reviewed by Dr. Carrion: Acute bilateral cerebellar ischemic stroke as well as subacute evolving ischemic infarction involving the right MCA/TAZ watershed territory left caudate head ischemic infarction. [place] to be embolic. ICU-ventilator , has NG tube Today she remains in the ICU intubated and sedated with pulmonary/critical care team following her closely. And help with vent management. Her breathing rate is around 28, blood pressure 149/77, she is a slightly tachycardiac 95-120. Afebrile for 24 hours. Labs showed leukocytosis of 22.5, hemoglobin 7.7. BMP is unremarkable. Liver enzymes mildly elevated. Glucose is controlled. Patient evaluated by surgery team for PEG tube placement on 08/06, with coinciding take his replacement patient is undergoing sedation holiday by pulmonary team Sputum culture is growing gram-positive cocci and antibiotics were initiated by pulmonary team, currently she is on ceftriaxone Medication included heparin drip, Keppra and amiodarone 08/04/2020 Patient remains intubated and sedated in the ICU with pulmonary/critical care team monitor the patient closely. And help with event management. She still underwent going sedation a trial with poor response, probably related to her general condition and multiple cerebral infarcts involving the right MCA and TAZ. Surgical team to evaluate the patient for possible tracheostomy and PEG tube per pulmonary/critical care team recommendation possibly on Sunday 08/06 Patient is with low-grade fever today at 100.4, vitals looks stable WBC trended down slowly to 17.4 K. Hemoglobin 7.7. Compared to 6.9 yesterday, patient is status post blood transfusion BMP is unremarkable. Sugar control. Bilirubin is normal, liver enzymes slightly elevated. Patient currently on Rocephin . She is on Keppra and heparin drip. patient is followed closely by cardiology and cardiothoracic surgery team. Neurology team already evaluated the patient 08/05/2020 Patient remains intubated and sedated in the ICU with pulmonary/critical care team monitor the patient closely. And help with event management. She still undergoing sedation trial by pulmonary team with poor response and they recommended tracheostomy and PEG tube to be performed by surgery team tomorrow. Other than that continue with supportive care Neurology evaluated the patient today and recommended to continue with anticoagulation for her A. fib and stroke together with aspirin for her bilateral internal carotid artery stenosis but can stop Plavix Gastrointestinal persistent leukocytosis of 16.6 and currently patient is on ceftriaxone by the pulmonary team, BMP, electrolytes, creatinine and mildly elevated liver enzymes remain stable. Prognosis is guarded 08/06/2020 Patient remains in the ICU intubated and sedated with pulmonary/critical care team following him closely and vent management Patient failed several attempts versus sedation holiday probably related to her new stroke. Patient is scheduled for PEG tube placement and tracheostomy by surgical team today Is still on anticoagulation, aspirin and Plavix. Also he is on ceftriaxone 08/07/2020 Patient is a status post tracheostomy and PEG tube placement for surgery team and once his foot she can start tube feeding Otherwise patient remains intubated and sedated with pulmonary/critical will help with vent management. Patient medication included aspirin, amiodarone, ceftriaxone and Protonix Review of systems: N/a Active Medications Generic Name Dose Route Start Last Admin Trade Name Freq PRN Reason Stop Dose Admin Hydrocodone Bitart/Acetaminophen 1 each 07/28/20 01:54 08/02/20 11:14 Hydrocodone/Apap 5-325mg 1 Each Tab PO 1 each Q4HR PRN Administration Moderate Pain Albuterol/Ipratropium 3 ml 07/27/20 14:15 Ipratropium-Albuterol 3 Ml Neb INHALATION RT-Q2H PRN Shortness Of Breath Or Wheezing Albuterol/Ipratropium 3 ml 08/04/20 12:00 08/05/20 16:12 Ipratropium-Albuterol 3 Ml Neb INHALATION 3 ml RT-Q4H [facility] Administration Aspirin 81 mg 08/02/20 09:00 08/05/20 08:30 Aspirin 81 Mg PO 81 mg DAILY [facility] Administration Atorvastatin Calcium 80 mg 07/21/20 21:00 08/04/20 20:46 Atorvastatin 80 Mg Tab PO 80 mg HS [facility] Administration Benzocaine/Menthol 1 each 07/27/20 14:15 Benzocaine/Menthol Lozeng 1 Each Lozenge MUCOUS MEM Q2H PRN Sore Throat Bisacodyl 10 mg 07/28/20 09:00 08/04/20 08:47 Bisacodyl 10 Mg Supp RECTAL 10 mg DAILY PRN Administration Constipation Chlorhexidine Gluconate 15 ml 07/31/20 21:00 08/05/20 08:31 Chlorhexidine Gluconate 15 Ml Cup MUCOUS MEM 15 ml BID [facility] Administration Ezetimibe 10 mg 07/21/20 21:00 08/04/20 20:46 Ezetimibe 10 Mg Tab PO 10 mg HS [facility] Administration Heparin Sodium (Porcine) 0 unit 08/02/20 08:29 08/03/20 08:21 Heparin Sodium,Porcine 5,000 Unit/Ml 1 Ml Vial IV 08/06/20 04:00 4,550 unit PER PROTOCOL PRN Administration Low PTT Protocol Lactated Ringer's 1,000 mls @ 20 mls/hr 07/27/20 14:15 08/05/20 01:47 Lactated Ringers IV 20 mls/hr .Q24H [facility] Administration Calcium Gluconate 2 gm/ Sodium 120 mls @ 100 mls/hr 07/27/20 14:15 Chloride IVPB 08/06/20 14:16 ONCE PRN Ionized Calcium less than 4.4 Levetiracetam 500 mg/ Sodium 105 mls @ 400 mls/hr 07/29/20 21:00 08/05/20 08:31 Chloride IVPB 400 mls/hr Q12HR [facility] Administration Heparin Sodium/Sodium Chloride 250 mls @ 9.997 mls/hr 08/02/20 08:30 08/05/20 12:06 25,000 unit/ Sodium Chloride IV 12.89 units/kg/hr .Q24H [facility] 11.833 mls/hr Administration Protocol 10.89 UNITS/KG/HR Ceftriaxone Sodium 1 gm/ 50 mls @ 100 mls/hr 08/03/20 10:30 08/05/20 08:31 Sodium Chloride IVPB 100 mls/hr Q24HR [facility] Administration Propofol 1,000 mg/ IV Solution 100 mls @ 0 mls/hr 08/04/20 16:00 08/05/20 18:24 IV 50 mcg/kg/min .Q0M [facility] 27.09 mls/hr Administration Protocol Titrate Potassium Chloride/Dextrose/Sod Cl 1,000 mls @ 40 mls/hr 08/06/20 00:00 D5%-1/2ns-Kcl 20 Meq/L Iv Solution IV .Q24H [facility] Insulin Aspart 0 unit 08/05/20 12:00 08/05/20 17:39 Insulin Aspart (Novolog) 100 Unit/Ml Vial SQ Not Given Q6HR [facility] Protocol Magnesium Hydroxide 2,400 mg 07/28/20 09:00 Magnesium Hydroxide 2,400 Mg/10 Ml Cup PO BID PRN Constipation Metoclopramide HCl 10 mg 07/27/20 14:15 Metoclopramide 5 Mg/Ml 2 Ml Vial IVP Q4H PRN Nausea And Vomiting Metoprolol Tartrate 25 mg 08/03/20 09:00 08/05/20 15:53 Metoprolol Tartrate 25 Mg Tab PO 25 mg TID [facility] Administration Miscellaneous Information 1 each 07/27/20 14:15 Potassium Replacement Protocol 1 Each Misc MISCELLANE DAILY PRN Per Protocol Protocol Miscellaneous Information 1 each 07/27/20 14:15 Magnesium Replacement Protocol 1 Each Misc MISCELLANE DAILY PRN Per Protocol Protocol Miscellaneous Information 1 each 07/27/20 14:15 Phosphorus Replacement Protoco 1 Each Misc MISCELLANE DAILY PRN Per Protocol Protocol Miscellaneous Information 1 each 08/05/20 04:27 Potassium Replacement Protocol 1 Each Misc MISCELLANE DAILY PRN Per Protocol Protocol Ondansetron HCl 4 mg 07/27/20 14:15 Ondansetron 4 Mg/2 Ml Vial IVP Q6HR PRN Nausea And Vomiting Pantoprazole Sodium 40 mg 07/28/20 09:00 08/05/20 08:30 Pantoprazole 40 Mg/10 Ml Vial IVP 40 mg DAILY [facility] Administration Senna/Docusate Sodium 2 each 07/28/20 21:00 08/04/20 20:46 Sennosides-Docusate Sodium 1 Each Tab PO 2 each HS [facility] Administration Sertraline HCl 100 mg 07/21/20 09:00 08/05/20 08:30 Sertraline 100 Mg Tab PO 100 mg DAILY [facility] Administration Sodium Chloride 10 ml 07/27/20 21:00 08/05/20 08:31 Sodium Chloride 0.9% Flush 10 Ml Syringe IV 10 ml BID [facility] Administration Objective - Vital Signs Vital signs: Vital Signs Temp 98.1 F 08/07/20 16:00 Pulse 68 08/07/20 19:00 Resp 24 08/07/20 19:00 BP 168/79 08/07/20 19:00 Pulse Ox 94 L 08/07/20 19:00 Intake & Output 08/07/20 08/07/20 08/08/20 06:59 18:59 06:59 Intake Total 458.760 6997.176 73 Output Total 890 445 40 Balance 59.139 1134.176 33 Weight 92.4 kg Intake: IV 700 1265 50 D5-0.45% NaCl with KCl 700 60 20Meq/l 1,000 ml @ 60 mls /hr IV .[id number] [facility] Rx#: [id number] Dextrose 5% in Water 1, 1005 50 000 ml @ 50 mls/hr IV . Q23H [facility] with Sodium Bicarb (1 Meq/ml) 150 ml Rx#:[id number] cefTRIAXone 1 gm In 100 Sodium Chloride 0.9% 50 ml @ 100 mls/hr IVPB Q24HR [facility] Rx#:[id number] levETIRAcetam IV 500 mg 100 In Sodium Chloride 0.9% 100 ml @ 400 mls/hr IVPB Q12HR@0000,1200 [facility] Rx#: [id number] Intake, IV Titration 249.139 169.176 Amount Heparin Sod,Pork in 0.45% 98.167 NaCl 25,000 unit In 0.45 % NaCl 1 250ml.bag @ 10. 823 UNITS/KG/HR 10 mls/hr IV .Q24H [facility] Rx#: [id number] levETIRAcetam IV 500 mg 100 In Sodium Chloride 0.9% 100 ml @ 400 mls/hr IVPB Q12HR [facility] Rx#:[id number] propofoL 1,000 mg In 149.139 71.009 Empty Bag 1 bag @ Titrate IV .Q0M [facility] Rx#: [id number] Tube Feeding 115 23 Other 30 Output: Urine 890 445 40 Other: Voiding Method Indwelling Catheter Indwelling Catheter ABP, PAP, CO, CI - Last Documented Arterial Blood Pressure 113/55 Pulmonary Artery Pressure 40/20 Cardiac Output 4.3 Cardiac Index 2.2 - Labs CBC & Chem 7: 08/07/20 02:56 08/07/20 02:56 Labs: Abnormal Lab Results - Last 24 Hours (Table) 08/07/20 08/07/20 08/07/20 Range/Units 02:56 02:56 02:56 WBC 21.4 H (3.8-10.6) k/uL RBC 2.94 L (3.80-5.40) m/uL Hgb 8.6 L (11.4-16.0) gm/dL Hct 27.7 L (34.0-46.0) % Plt Count 739 H (150-450) k/uL Neutrophils # (Manual) 17.70 H (1.3-7.7) k/uL Metamyelocytes # (Man) 0.43 H (0) k/uL Nucleated RBCs 1 H (0-0) /100 WBC ABG pH (7.35-7.45) ABG pO2 (83-108) mmHg ABG O2 Saturation (94-97) % Potassium 5.3 H (3.5-5.1) mmol/L Carbon Dioxide 20 L (22-30) mmol/L Glucose 122 H (74-99) mg/dL POC Glucose (mg/dL) (75-99) mg/dL Magnesium 2.4 H (1.6-2.3) mg/dL AST 80 H (14-36) U/L ALT 124 H (4-34) U/L Alkaline Phosphatase 181 H (38-126) U/L Total Protein 6.0 L (6.3-8.2) g/dL Albumin 3.3 L (3.5-5.0) g/dL 08/07/20 08/07/20 08/07/20 Range/Units 05:03 05:35 11:15 WBC (3.8-10.6) k/uL RBC (3.80-5.40) m/uL Hgb (11.4-16.0) gm/dL Hct (34.0-46.0) % Plt Count (150-450) k/uL Neutrophils # (Manual) (1.3-7.7) k/uL Metamyelocytes # (Man) (0) k/uL Nucleated RBCs (0-0) /100 WBC ABG pH 7.29 L (7.35-7.45) ABG pO2 76 L (83-108) mmHg ABG O2 Saturation 93.9 L (94-97) % Potassium (3.5-5.1) mmol/L Carbon Dioxide (22-30) mmol/L Glucose (74-99) mg/dL POC Glucose (mg/dL) 138 H 131 H (75-99) mg/dL Magnesium (1.6-2.3) mg/dL AST (14-36) U/L ALT (4-34) U/L Alkaline Phosphatase (38-126) U/L Total Protein (6.3-8.2) g/dL Albumin (3.5-5.0) g/dL 08/07/20 Range/Units 17:42 WBC (3.8-10.6) k/uL RBC (3.80-5.40) m/uL Hgb (11.4-16.0) gm/dL Hct (34.0-46.0) % Plt Count (150-450) k/uL Neutrophils # (Manual) (1.3-7.7) k/uL Metamyelocytes # (Man) (0) k/uL Nucleated RBCs (0-0) /100 WBC ABG pH (7.35-7.45) ABG pO2 (83-108) mmHg ABG O2 Saturation (94-97) % Potassium (3.5-5.1) mmol/L Carbon Dioxide (22-30) mmol/L Glucose (74-99) mg/dL POC Glucose (mg/dL) 171 H (75-99) mg/dL Magnesium (1.6-2.3) mg/dL AST (14-36) U/L ALT (4-34) U/L Alkaline Phosphatase (38-126) U/L Total Protein (6.3-8.2) g/dL Albumin (3.5-5.0) g/dL Microbiology - Last 24 Hours (Table) 08/02/20 09:31 Blood Culture - Preliminary Blood No Growth after 120 hours 08/05/20 08:30 Gram Stain - Final Sputum Sputum Culture - Final Klebsiella oxytoca Lali albicans Assessment and Plan Assessment: Triple vessel coronary artery disease, status post bypass surgery on 07/27 Acute bilateral cerebellar ischemic stroke as well as subacute evolving ischemic infarction involving the right MCA/TAZ watershed territory left caudate head ischemic infarction. [place] to be embolic./post surgical, with left hemiparesis Paroxysmal atrial fibrillation.in and out of rapid atrial fibrillation Acute hypoxic respiratory failure needing mechanical ventilation Possible ischemic encephalopathy with toxic encephalopathy Unstable angina secondary to above, currently patient with no chest pain Possible respiratory infection with sputum culture, gram-positive cocci Pulmonary emphysema with fibrotic changes in the right lower lung History of lung cancer status post surgical resection Hypertension Peripheral vascular disease Hyperlipidemia Osteoarthritis Plan: This is a pleasant 75 years old female with triple-vessel coronary artery disease. Cardiothoracic surgery on the case and workup is was done prior to surgical intervention, pulmonary evaluated the patient preoperatively and she was low risk. Patient was on heparin drip prior to surgery but with cardiology were following case closely. Patient completed by stroke and neurology evaluated the patient and recommended to continue with anticoagulation and aspirin both Plavix can be stopped. patient failed sedation trial and she is planned for tracheostomy and PEG tube placement Continue with aspirin, statin and metoprolol, continue with Keppra per Neurologist Patient is going for PEG tube placement and tracheostomy on 08/15 per recommendation of pulmonary and surgical teams Continue with anticoagulation per Speeder Worker recommendation Several consultants of the case including neurologist, business writer, pulmonary/critical care team decides to the cardiothoracic surgical and Gen. surgical teams and she will follow the recommendations Labs and medication were reviewed.. Continue same treatment. Continue with symptomatic treatment. Resume home medication. Monitor lytes and vitals. DVT and GI prophylaxis. Further recommendations as per clinical course of the patient DVT prophylaxis: heparin GI Prophylaxis: Ppi Prognosis is guarded
[2020-08-08] MEDS: AMIODARONE 450 MG in DEXTROSE 5% IN WATER 250 ML IV SCH ×2 (01:34)
[2020-08-08] MEDS: levETIRAcetam IV 500 MG in SODIUM CHLORIDE 0.9% 100 ML IVPB SCH ×3 (01:35→23:16)
[2020-08-08] MEDS: INSULIN ASPART (NovoLOG) 100 UNIT/ML VIAL SQ SCH ×5 (01:40→23:15)
[2020-08-08 01:41] LABS: Glucose,Whole Blood 149 mg/dL (75-99)
[2020-08-08] MEDS: ARTIFICIAL TEARS OINTMENT 3.5 GM TUBE BOTH EYES SCH ×7 (01:41→23:15)
[2020-08-08] MEDS: LOSARTAN 25 MG TAB PO SCH ×2 (01:42→20:05)
[2020-08-08 04:51] LABS: Basophils # (A) 0.1 k/uL (0-0.2); Basophils % (A) 0 %; Eosinophils # (A) 0.1 k/uL (0-0.7); Eosinophils % (A) 1 %; HCT 25.7 % (34.0-46.0); HGB 8.4 gm/dL (11.4-16.0); Hypochromasia Slight; Lymphocytes # (A) 1.2 k/uL (1.0-4.8); Lymphocytes % (A) 5 %; MCH 30.1 pg (25.0-35.0); MCHC 32.7 g/dL (31.0-37.0); Mean Platelet Volume 7.5; Monocytes # (A) 0.9 k/uL (0-1.0); Monocytes % (A) 4 %; Neutrophils # (A) 22.1 k/uL (1.3-7.7); Neutrophils % (A) 90 %; Platelet Count 594 k/uL (150-450); RDW 14.6 % (11.5-15.5); WBC 24.6 k/uL (3.8-10.6)
[2020-08-08 05:57] LABS: Albumin 3.2 g/dL (3.5-5.0); Calcium 8.4 mg/dL (8.4-10.2); Total Bilirubin 0.8 mg/dL (0.2-1.3); Total Protein 6.3 g/dL (6.3-8.2)
[2020-08-08 06:02] LABS: ABG Base Excess -0.9 mmol/L; ABG HCO3 23 mmol/L (21-25); ABG Oxygen Saturation 94.9 % (94-97); ABG PCO2 35 mmHg (35-45); ABG PH 7.44 (7.35-7.45); ABG PO2 74 mmHg (83-108); ABG TCO2 24 mmol/L (19-24); Allen Test Performed? Yes
[2020-08-08 06:37] LABS: Glucose,Whole Blood 149 mg/dL (75-99)
--- NOTE | 2020-08-08 06:48 | P.PN ---
Subjective Progress Note Date: 08/08/20 Coronary artery disease status post coronary artery bypass grafting Patient was reevaluated today on 07/28/2020, remains intubated and mechanically ventilated. Patient is now on assist control mode of mechanical ventilation with a rate of 16, volume is 450 FiO2 is 50% and PEEP of 5. Unfortunately the p atjuan was noted to have poor movement of her left upper and left lower extremity last night, CT of the head last night showed acute/subacute area of infarction in the right cerebellum along with probable area of chronic infarction in the right parietal region I evaluated the patient this morning, s eems to be extremely restless and agitated, seems to be neglecting the left side, and both eyes are deviated to the right and upwards. Patient seems to be moving her right side quite well, however the left side seems to be relatively weak although she was squeezing my hand with her left hand. And minimal movement noted in the left lower extremity. Patient is on Precedex, and seems to be agitated in spite of Precedex. Her ventilatory settings are reasonable, ABG is reasonable, patient is basically extubate overall, however her mental status is a bit concerning specially with her extreme agitation, keeps pulling and shaking the railing of the bed on the right side. Patient was given Ativan, and I have recommended increasing Precedex. She is not truly quite ready to be extubated today. Again my major concern is her mental status. And she is yet to be seen by neurology on consultation. Blood pressure is quite high, 160 systolic, norepinephrine was discontinued during my evaluation. She was on a very minimal dose of 0.1 mcg/kg/m of norepinephrine patient was also on milrinone. CBC is relatively normal hemoglobin is 7.4. ABG this morning showed a pO2 of 92 pCO2 of 38 pH of 7.45. This was on 50% FiO2. Electrolytes and renal profile are normal. Chest x-ray showed mostly postoperative changes of CABG 07/29/2020, I'm seeing the patient for a follow-up in the intensive care unit. This morning the patient is heavily sedated with propofol and she is calm and comfortable. Unfortunately with that, neurologic examination is not possible. I would suggest gradually cutting down the propofol and assess her neuro status and if needed utilize Precedex as an alternative sedative drip. Meanwhile, the patient remains essentially with enema to severe with a low dose of norep inephrine infusion running at 0.06 mcg/kg per minute. She has an adequate urine output. Cardiac rhythm is sinus. She has a left pleural and mediastinal chest tubes and output from those are in order of minimal, less than 100 over the past 24 hours. The chest x-ray showing cardiomegaly. There is some kyphoscoliosis of the chest. Chest tubes are in good location. ET tube is in good location. Atelectatic changes and some mild four-vessel congestion. Meanwhile, the patient's vent settings include an assist-control mode at the rate of 16 with a tidal volume of 450 and FiO2 of 40% with a PEEP of 5. The blood gases from this morning showed a pH of 7.49 with a pCO2 of 36 and pO2 of 82. On today's blood work, the patient's hemoglobin is down to 6.9 from 7.4. Platelets is at 210. 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 Intracranial cerebral arteries were essentially patent with nothing significantly stenotic. During our limited neurologic evaluation, the patient did not do mistreat any withdrawal with to painful stimulation. No Babinski. No clonus. Nevertheless, I was told by the nursing staff that she was able to move her right side yesterday and her left side once off sedation. Pupils are equal and reactive to light and order of 3 mm. No preferential gaze on today's evaluation. A sedation holiday will be given. She is on enteral nutrition. No other drips. No seizure activity. Neurologist on the case. She is on aspirin, Plavix, and she also on metoprolol 12.5 mg by mouth twice a day. She is also on high-dose statins. Progress note dated 05/29/2021. Currently, this is a 75-year-old female who was admitted to the hospital on July 21. She went to the operating room, on July 27 for a three-vessel bypass grafting with Dr. Alan. The patient has never been extubated. Unfortunately, she developed a right cerebellar CVA. She remains on the mechanical ventilator. She is currently on the volume assist control mode, rate is 16, tidal volume 400, FiO2 60%, and PEEP of 5. The blood gases show a PaO2 of 99, a PaCO2 of 40, and a pH of 7.44. She also remains on lactated Ringer's at 20 mL an hour, propofol was turned off for the spontaneous breathing trial, and she's been weaned off of norepinephrine. She is receiving vital AF, at a rate of 30 mL an hour, with a goal of 57 mL an hour. We placed the patient on pressure support of 5 CPAP of 5, and stayed in the room to observe her response to the spontaneous breathing trial. Unfortunately, the patient's respiratory rate went up above 40, and a tidal volumes dropped down to 200 range. Her m inute volume was quite high, and the patient was placed back on the volume assist control mode. After the failed spontaneous breathing trial, the patient's tidal volume was dropped down to 350, her FiO2 was decreased to 50%, and the peak level was increased from 5 to 8 cm water. White count is 12.8, hemoglobin 8, hematocrit 23.5, and platelet count 210,000. Blood gases have been reviewed. Sodium 139, potassium 3.6, chlorides 107, CO2 27, anion gap 5, BUN 33, and creatinine 0.64. Chest x-ray shows a right lower lobe infiltrate and my opinion. Progress note dated 07/31/2020 75-year-old female, that was admitted to the hospital on July 21. She went to the operating room on July 27 for a three-vessel bypass grafting with Dr. Alan. The patient has never been extubated and unfortunately, she developed a right cerebellar CVA. She currently remains on the ventilator, on the volume assist control modality. She is on a rate of 16, tidal volume 350, FiO2 50%, and a PEEP of 8. Arterial blood gases show a PaO2 of 76, PaCO2 44, and a pH of 7.4. The patient is getting lactated Ringer's at KVO, amiodarone at 0.5 mg/m, and propofol at 30 mcg/kg/m. In addition, the patient's on vital AF 1.2 at 57, with a goal of 57 mL an hour. Today, we attempted a daily interruption of se dation and a spontaneous breathing trial. As noted yesterday, she failed her trial. Today, we placed her on PSV 8, and CPAP of 5. Currently, she is doing a bit better today. A Dobbhoff tube was placed yesterday. Unfortunately, she appears to be weaker on the right side. The left side she does not move at all. In the end, she may end up with the tracheostomy tube and a ET tube. Yesterday, after the spontaneous breathing trial, the patient unfortunately developed atrial fibrillation with RVR, and that is why the patient is on amiodarone. The patient is seen today 08/01/2020 in follow-up in the intensive care unit. She remains intubated on the mechanical ventilator. Current settings assist- control of with a rate of 16, tidal volume 350, FiO2 50% and a PEEP of 8. Morning blood gases reveal a P O2 of 77, pCO2 of 40, pH 7.47. She remains sedated on propofol at 30 mcg/kg/m. Lactated Ringer's at KVO. She developed atrial fibrillation with rapid ventricular response. She is currently on amiodarone at 0.5 mg/m. She is being nourished with vital HP at 20 ML's per hour which is goal. She was given daily interruption of sedation. She develops A. fib RVR during a spontaneous breathing trials yesterday. We'll trial again today. His chest x-ray continues to show stable diffuse pleuroparenchymal changes. Endotracheal tube and gastric tubes are secured in place. Left-sided chest tube has been removed. PICC line in place. She is status post 1 unit of packed red blood cells this admission. Current hemoglobin 7.1. White count 13.6. Sodium 136. Potassium 3.5. Creatinine 0.55. AST 107. ALT 105. Albumin 2.7. She is continued on DuoNeb inhalations. Heparin for DVT prophylaxis. The patient is seen today 08/02/2020 in follow-up in the intensive care unit. She remains intubated and sedated. Currently on mechanical ventilator assist control mode at a rate of 16. Tidal volume 350. FiO2 40%. PEEP of 8. Morning blood gases reveal a P O2 of 100, pCO2 38, pH 7.49. This is on 50% FiO2. She is currently sedated on propofol at 35 mcg/kg/m. She remains on heparin drip. 0.9 normal saline at 20 ML's per hour. She is being nourished with vital HP 20 ML's per hour which is goal. She was given daily interruption of sedation yesterday she became extremely tachypneic with a respiratory rate in the 40s, not following any commands. Placed back on assist control. Trial again today. She has been having issues with atrial fibrillation. Transitioned to oral amiodarone. Chest x-ray reveals left-sided PICC line in place. Endotracheal and gastric tubes are stable. Vertebral column stimulator in place. There are bilateral infiltrates/pleural effusions. Diffusion interstitial pattern. No pneumothorax. She has received 1 unit of packed red blood cells this admission. Current hemoglobin 7.6. Platelets 387. White count 20.6. Sodium 137. Potas sium 3.9. Creatinine 0.50. AST 67. ALT 83. Albumin 2.8. The patient is seen today 08/03/2020 in follow-up in the intensive care unit. Postoperative day #7. She remains intubated and sedated on the mechanical ventilator. Current mode assist control with a rate of 16, tidal been 350, FiO2 40% and a PEEP of 8. Morning blood gases reveal pO2 of 90, pCO2 40, pH 7.49. Currently on propofol at 20 mcg/kg/m. Remains on heparin drip at weight-based protocol. Lactated Ringer's at 20 ML's per hour. She is being nourished with vital HP at 28 ML's per hour which is goal. Free water flushes at 30 MLS every 4 hours. Sputum culture pending. White count 20.5. Hemoglobin 7.7. Sodium 139. Potassium 3.9. Creatinine 0.53. AST 70, ALT 80. She remains on DuoNeb inhalations. Chest x-ray reveals good placement of the endotracheal tube and Dobbhoff tubes. Left sided PICC line in place. Bibasilar densities persist. Perihilar increase attenuation noted within the lungs, left hemidiaphragm remains obscured greater than right. Currently afebrile. Hemodynamically stable. Currently in atrial fibrillation with controlled ventricular rate. She responds to painful stimuli on the right. She did sustain an acute bilateral cerebellar ischemic stroke right greater than left as well as a subacute evolving ischemic infarction including the right MCA/TAZ watershed territory with left-sided hemiplegia. She has not tolerated daily interruption of sedation due to her becoming tachypneic, tachycardic and hypertensive. The patient is seen today 08/04/2020 and follow-up in the intensive care unit. Postoperative day #8. She remains intubated and sedated on mechanical ventilator. Current settings assist-control at a rate of 16, tidal volume 350, FiO2 40%, PEEP of 5. Blood gases reveal a P O2 of 81, pCO2 38, pH 7.51. She remains on propofol at 25 mcg/kg/m. Heparin per weight base protocol. Lactated Ringer's at 20 ML's per hour. She is being nourished with vital HP at 20 mL per hour which is goal. She is spontaneously moving her right arm and right leg. Not following any simple commands. She is status post 1 unit of packed red blood cells this admission. Current hemoglobin 6.9. White count 19.4. Sodium 138. Potassium 3.7. Creatinine 0.71. AST 117, ALT 106. Albumin 2.7. She was given a interruption of sedation and spontaneous breathing trial yesterday. She did develop atrial fibrillation with rapid ventricular response with hypertension, tachypnea. Placed back on mechanical ventilator. We'll trial again today. Plan is for possible tracheostomy and PEG tube placements on 08/06/2020. Chest x-ray continues to show cardiomegaly with mild central venous congestion and left greater than right bibasilar acute infiltrates. Small left pleural effusion. No significant change compared to previous. Sputum culture reveals no growth. Blood culture reveals no growth. She remains on bronchodilators, ceftriaxone. The patient is seen today 08/05/2020 in follow-up in the intensive care unit. Postoperative day #9. She remains intubated, sedated on the mechanical ventilator. Assist-control mode at a rate of 16, tidal been 350, FiO2 40% and a PEEP of 5. Morning blood gases reveal a P O2 of 66, pCO2 38, pH 7.4. She remains on a heparin drip or weight base protocol. Lactated Ringer's at 20 ML's per hour. Propofol at 40 mcg/kg/m. She is being nourished with vital HP at 28 ML's per hour which is goal. Chest x-ray reveals evidence of cardiomegaly with moderate central vascular congestion and left basilar small pleural effusion with associated acute infiltrate and/or atelectasis. A bit worse compared to yesterday. She was given Lasix 20 mg IVP 1. Remains on bronchodilators and on ceftriaxone. Repeat sputum culture pending. Status post 2 units of packed red blood cells this admission. White count 16.6. Hemoglobin 7.6. Sodium 137. Potassium 3.7. Creatinine 0.60. AST 142. ALT 156. Albumin 2.6. Glucose 106. Amiodarone was discontinued due to elevated LFTs. Currently rate-controlled atrial fibrillation. On 08/06/2020 him on seeing the patient for a follow-up in the intensive care unit. This patient is currently postop day number not 10. She had a comfort care postoperative course following her bypass surgeon and the patient had developed a stroke with altered mentation and she never got to a point where she was awake and alert and following commands and as such her extubation process of eating was quite complicated. She was always agitated, restless, not following commands and not following the weaning protocols. As such, the patient was kept sedated and the patient was kept on a mechanical ventilator. She had received daily sedation holidays. She is at the point where she is going to have a PEG and trach today done by general surgery. Meanwhile, the patient is on propofol running at 50 mcg/kg per minute and this morning she is calm and comfortable. She is on assist-control mode at the rate of 60 with a tidal volume of 350 and FiO2 of 40% with a PEEP of 5. The blood gases from today showed a pH of 7.4 With a pCO2 of 40 and pO2 of 71. Hemoglobin is at 7.3 and the patient received a unit of packed RBC on 08/04/2020 and hemoglobin has remained stable since. The patient had some mild disturbance in the liver function tests. Amiodarone has been discontinued. Current cardiac rhythm is sinus. The patient is on no pressors. The patient currently is receiving IV fluids in the form of D5 half-n ormal along with potassium supplements at the rate of 40 mL an hour. Neurologically, she does have a pressure gaze to the right upper quadrant area. Pupils are equal and reactive to light. She withdraws to painful similar ablation 04 extremities. Neurologist on the case. She does have a Dobbhoff and the patient is receiving enteral feeding in the form of vital high protein and currently the tube feeds on hold pending surgery. Blood sugars under adequate control. Urine output is adequate. 08/07/2020, I'm seeing the patient for a follow-up. The patient is postop day #11. The patient remains on a mechanical ventilator. Because of her prolonged arrest 30 failure and altered mental status post CVA, the patient required to have a PEG tube insertion and tracheostomy tube insertion. The procedure was done yesterday and today patient is postop day #1 post tracheostomy tube insertion. She is currently on assist control mode at the rate of 60 without a volume of 350 and FiO2 of 40% with a PEEP of 5. Blood gases showed a pH of 7.29 with a pCO2 of 45 and pO2 of 76. Hematocrit ventilation on the mechanical ventilator is around 8.5. The chest x-ray from today shows adequate positioning of the tracheostomy tube. The patient has a #7 B[address] The patient has a left upper extremity PICC line. The patient has some mild pulmonary vascular congestion. There is cardiomegaly. Trace left-sided pleural effusion. No other abnormalities noted. Meanwhile, as the patient was being weaned off the propofol, the patient was at atrial fibrillation with rapid ventricular response around 10 PM. The patient currently is on propofol of 25 mcg/kg per minute. The patient's is being treated with amiodarone drip. She was started with a bolus and following that she is was maintained on 0.5 mg per minute. Her current rate is 118 and still irregular. White cell count is at 21.6 and hemoglobin is at 8.6. Renal function is stable with a creatinine of 0.57, nevertheless, the patient has developed a component of metabolic acidosis with a serum bicarbonate up from 31 down to 20 and the liver function tests remain to be of normal with a bilirubin of 0.7, AST of 80, AST of 124. Her pro- calcitonin from 08/03/2020 was 0.12. IV fluids are running with D5 half-normal saline at the rate of 60 and the patient is nothing by mouth for now. The plan is to start some enteral feeding for nutritional support. In terms of her atrial fibrillation, the patient is on amiodarone drip and she is also on metoprolol 25 mg by mouth 3 times a day. 08/08/2020 I'm seeing the patient for a follow-up on postop day #12. Remains completely unresponsive despite being off sedation for the past 24-48 hours. She is post tracheostomy tube insertion and on today's evaluation the patient's chest x-ray shows no interval change and the patient has adequate positioning of the tracheostomy tube With some small trace bilateral pleural effusion and lung bases and some scattered bilateral pulmonary infiltrates. The patient has grown Klebsiella and Lali in his sputum and the patient remains on IV Rocephin for now. She is afebrile. Her white cell count has gone up to 24. The blood gases from today shows a pH of 7.43 with a pCO2 of 34 and pO2 of 74. After recovering from her atrial fibrillation, earlier this morning while taking a bath, the patient slipped back into A. fib RVR. Her current heart rate is somewhere between 100 and 115. She remains on IV heparin. She is on oral amiodarone at a dose of 200 mg by mouth twice a day and the patient is also on metoprolol 50 mg by mouth twice a day. Morning medication has not been given yet. No seizure activity. No sedatives. Neurologically unresponsive, she may grimace to painful stimulation, yet for the most part, she cannot follow commands and she is not moving any of her extremities upon demand. On today's evaluation, she was noted to have some increased work of breathing. Based on that, I increased her tidal volume to 450 and I put that on the VC plus mode. She seemed 3 much more comfortable an assist-control mode with a tidal volume of 450 and FiO2 of 40% with a PEEP of 5 with an inspiratory time of 0.9. She is receiving enteral feeding via effective and the patient is currently on vital high protein at the rate of 20 mL an hour. She is also on a bicarb drip with a serum bicarb of 27 and she is receiving a total of 250 mg of sodium bicarbonate D5 water at the rate of 50 mL an hour. Objective - Vital Signs Vital signs: Vital Signs Temp 98.8 F 08/07/20 20:00 Pulse 68 08/08/20 03:00 Resp 29 H 08/08/20 03:00 BP 167/88 08/08/20 03:00 Pulse Ox 96 08/07/20 20:00 Intake & Output 08/07/20 08/07/20 08/08/20 06:59 18:59 06:59 Intake Total 518.690 4180.176 473 Output Total 890 445 465 Balance 59.139 1134.176 8 Weight 92.4 kg Intake: IV 700 1265 450 D5-0.45% NaCl with KCl 700 60 20Meq/l 1,000 ml @ 60 mls /hr IV .[id number] [facility] Rx#: [id number] Dextrose 5% in Water 1, 1005 450 000 ml @ 50 mls/hr IV . Q23H INÉS with Sodium Bicarb (1 Meq/ml) 150 ml Rx#:[id number] cefTRIAXone 1 gm In 100 Sodium Chloride 0.9% 50 ml @ 100 mls/hr IVPB Q24HR [facility] Rx#:[id number] levETIRAcetam IV 500 mg 100 In Sodium Chloride 0.9% 100 ml @ 400 mls/hr IVPB Q12HR@0000,1200 [facility] Rx#: [id number] Intake, IV Titration 249.139 169.176 Amount Heparin Sod,Pork in 0.45% 98.167 NaCl 25,000 unit In 0.45 % NaCl 1 250ml.bag @ 10. 823 UNITS/KG/HR 10 mls/hr IV .Q24H [facility] Rx#: [id number] levETIRAcetam IV 500 mg 100 In Sodium Chloride 0.9% 100 ml @ 400 mls/hr IVPB Q12HR [facility] Rx#:[id number] propofoL 1,000 mg In 149.139 71.009 Empty Bag 1 bag @ Titrate IV .Q0M [facility] Rx#: [id number] Tube Feeding 115 23 Other 30 Output: Urine 890 445 465 Other: Voiding Method Indwelling Catheter Indwelling Catheter Indwelling Catheter ABP, PAP, CO, CI - Last Documented Arterial Blood Pressure 113/55 Pulmonary Artery Pressure 40/20 Cardiac Output 4.3 Cardiac Index 2.2 - Exam Intubated, sedated 75-year-old female patient. Sedated on propofol. The patient is not responsive. She may have a sluggish response to deep painful stimulation. She does have a decline in her left upper extremity. Currently she has a tracheostomy tube in place which is a #7 Bivona tracheostomy tube. HEENT examination is grossly unremarkable. Mucous membranes are moist. There is a orally placed endotracheal tube, and the patient has a Dobbhoff catheter in place Neck supple. Full range of motion. No adenopathy thyromegaly or neck vein distention. Cardiovascular examination reveals an irregular rhythm and rate. Irregular S1- S2 consistent with atrial fibrillation with rapid ventricular response. Heart rate is around 120, irregular and the patient has his sternum which is intact an d dry and clean and well-healed. Lungs reveal bilateral rhonchi. No wheezes or crackles. Breath sounds equal bilaterally., Sternal stable clean and intact and is well-healed Abdominal exam revealed normal bowel sounds. The abdomen was soft, non-tender, and without masses, organomegaly, or appreciable enlargement of the abdominal aorta. The patient has a PEG tube which is in place and exit site is dry clean and intact Extremities are intact. No cyanosis clubbing or edema. Skin is without rash or lesion. Neurologic examination she may grimace to painful stimulation. There may be some facial asymmetry with some left-sided weakness. Pupils are equal and reactive to light. I was unable to elicit any motor response on today's evaluation. Nevertheless, the patient had left-sided weakness. No clonus. Reflexes are diminished. Extremities symmetrical in all 4 extremities. Nikky nski could not be elicited. Does have a weak cough and a gag. The patient has a weak cough. The patient has a weak gag. She does have positive corneals. Pupils are round 3-4 mm in size and there reactive to light. She may have a preferential gaze looking into the upper visual ugarte. - Labs CBC & Chem 7: 08/08/20 04:30 08/08/20 04:30 Labs: Abnormal Lab Results - Last 24 Hours (Table) 08/07/20 08/07/20 08/07/20 Range/Units 02:56 11:15 17:42 WBC 21.4 H (3.8-10.6) k/uL RBC (3.80-5.40) m/uL Hgb (11.4-16.0) gm/dL Hct (34.0-46.0) % Plt Count (150-450) k/uL Neutrophils # (1.3-7.7) k/uL Neutrophils # (Manual) 17.70 H (1.3-7.7) k/uL Metamyelocytes # (Man) 0.43 H (0) k/uL Nucleated RBCs 1 H (0-0) /100 WBC APTT (22.0-30.0) sec ABG pO2 (83-108) mmHg Sodium (137-145) mmol/L BUN (7-17) mg/dL Glucose (74-99) mg/dL POC Glucose (mg/dL) 131 H 171 H (75-99) mg/dL Alkaline Phosphatase (38-126) U/L Albumin (3.5-5.0) g/dL 08/08/20 08/08/20 08/08/20 Range/Units 01:11 01:39 04:30 WBC 24.6 H (3.8-10.6) k/uL RBC 2.80 L (3.80-5.40) m/uL Hgb 8.4 L (11.4-16.0) gm/dL Hct 25.7 L (34.0-46.0) % Plt Count 594 H (150-450) k/uL Neutrophils # 22.1 H (1.3-7.7) k/uL Neutrophils # (Manual) (1.3-7.7) k/uL Metamyelocytes # (Man) (0) k/uL Nucleated RBCs (0-0) /100 WBC APTT 51.8 H (22.0-30.0) sec ABG pO2 (83-108) mmHg Sodium (137-145) mmol/L BUN (7-17) mg/dL Glucose (74-99) mg/dL POC Glucose (mg/dL) 149 H (75-99) mg/dL Alkaline Phosphatase (38-126) U/L Albumin (3.5-5.0) g/dL 08/08/20 08/08/20 08/08/20 Range/Units 04:30 06:00 06:35 WBC (3.8-10.6) k/uL RBC (3.80-5.40) m/uL Hgb (11.4-16.0) gm/dL Hct (34.0-46.0) % Plt Count (150-450) k/uL Neutrophils # (1.3-7.7) k/uL Neutrophils # (Manual) (1.3-7.7) k/uL Metamyelocytes # (Man) (0) k/uL Nucleated RBCs (0-0) /100 WBC APTT (22.0-30.0) sec ABG pO2 74 L (83-108) mmHg Sodium 136 L (137-145) mmol/L BUN 33 H (7-17) mg/dL Glucose 146 H (74-99) mg/dL POC Glucose (mg/dL) 149 H (75-99) mg/dL Alkaline Phosphatase 157 H (38-126) U/L Albumin 3.2 L (3.5-5.0) g/dL Microbiology - Last 24 Hours (Table) 08/02/20 09:31 Blood Culture - Preliminary Blood No Growth after 120 hours 08/05/20 08:30 Gram Stain - Final Sputum Sputum Culture - Final Klebsiella oxytoca Lali albicans Assessment and Plan Plan: 1 Status post three-vessel bypass grafting. The patient is postop day #12. The patient remains intubated on mechanical ventilator. This was a post operative course was quite complicated and the patient a neurologic event with left-sided weakness and right sided/study bilateral acute/subacute CVA. Neurologist on the case. There has been ongoing issues with mental status and difficulty in following commands. The patient remains unresponsive. Strongly suspect a brainstem infarct in combination with a cerebellar infarct causing altered mental status. She'll be further discussed with neurology. In view of the prolonged respiratory failure, the patient had a tracheostomy tube inserted yesterday the patient is postop day #2 post tracheostomy tube insertion and a PEG tube insertion. On today's evaluation, the patient remains unresponsive. She does have brainstem reflexes. She opens her eyes spontaneously. Does not follow any commands. She has been off sedation for at least 24 hours post tracheostomy tube insertion. Mental status being monitored. 2 acute hypoxemic respiratory failure and remains on the ventilator because of her recent ischemic CVA. Patient had prolonged respiratory failure due to postop CVA and the patient has a tracheostomy placed yesterday for ongoing respiratory support. On today's evaluation, the chest x-ray showing still stable bilateral pulmonary infiltrates and small bilateral pleural effusions. Sputum is positive for Klebsiella and the Lali. The patient is on IV Rocephin. White cell count is on the rise and the patient will have the sputum analysis and the pro-calcitonin sent. Superimposed pneumonia cannot be completely excluded. 3 Postoperative acute/subacute right cerebellar infarct, complicated further by a lleft-sided hemiparesis. Suspected brainstem infarct in combination with a cerebellar infarct causing altered mentation and diminished level of consciousness. 4 Leukocytosis of unclear etiology, white cell count is at 24 5 Remote history of non-small cell lung cancer, with previous lobectomy. 6 Prior history of tobacco use. 7 Mild COPD based on PFTs. 8 Family history of premature coronary artery disease. 9 History of hypertension. 10 Peripheral vascular occlusive disease. 11 Degenerative joint disease. 12 Hyperlipidemia. 13 Chronic insomnia. 14 History of postoperative anemia. 15 metabolic acidosis, improved with bicarb infusion 16 paroxysmal atrial fibrillation with rapid ventricular response Plan: Continue ventilator support and switch this patient to obesity plus mode with a tidal volume of 450 and at nighttime of 0.9 and this obviously helped her with her work of breathing. We'll call respiratory to deflate the cuff and that emanate the air leak around the tracheostomy tube Recheck sputum Gram stain and culture Check a pro-calcitonin level Keep the IV Rocephin for now Chest x-ray was reviewed Continue enteral feeding for nutritional support with vital high protein Stop the bicarb infusion and put the patient on a half normal saline at the rate of 50 Continue metoprolol and amiodarone for rate control and the patient will be kept on IV heparin with the intention of switching this patient to long-term anticoagulants such as Eliquis and clearance will be obtained by cardiothoracic surgery We'll continue ceftriaxone for a temperature spike been going on earlier and currently she is afebrile. This was essentially emperic coverage. Empiric antiepileptic coverage with Kejaquelinra Monitor liver function tests, could be related to use of high-dose statins Switched IV fluids to half-normal saline at rate of 50 mL an hour Monitor neurologic exam We will continue to follow and make further recommendations based on her clinical status Critical care evaluation, done more than 30 minutes. Time with Patient: Greater than 30
--- NOTE | 2020-08-08 08:21 | XR ---
EXAMINATION TYPE: XR chest 1V portable DATE OF EXAM: 08/08/2020 COMPARISON: Chest x-ray 08/07/2020 HISTORY: Postop coronary artery bypass graft, abnormal chest x-ray TECHNIQUE: Single frontal view of the chest is obtained. FINDINGS: Left-sided PICC line, tracheostomy tube, thoracic cord stimulator, post median sternotomy and left atrial appendage clip placement change are all again noted. Pleural parenchymal changes with in the chest are similar. Cardiac mediastinal silhouette remains enlarged. No evident pneumothorax. IMPRESSION: Correlate for edema, pneumonia, there may be pleural effusion
--- NOTE | 2020-08-08 08:27 | P.PN ---
Subjective This is a 75-year-old female past medical history significant for coronary artery disease with previous myocardial infarction and stent placement, p eripheral artery disease with lower extremity stenting, lung cancer s/p right lower lobectomy in 2011, hypertension, hyperlipidemia, COPD with previous tobacco dependence quit in 2011. Presented with NSTEMI. She presented to the emergency department at [facility] with complaints of midsternal chest discomfort radiating to her back and down bilateral arms, transferred to [facility]. On 07/22- Patient underwent cardiac catheterization and found to have severe triple-vessel coronary artery disease with significant disease in the proximal LAD, mid LAD, obtuse marginal branch and the right coronary artery in the long segment. Echo revealed normal left ventricular systolic function EF 50-55% with mild aortic stenosis. She underwent coronary artery bypass grafting x 3 vessels, ligation of the left atrial appendage on 07/27. Post-operatively, 07/28, while patient being weaned off sedation, patient was found to have left-sided weakness, deviation of the head to the right side, was not following commands. CT brain revealed acute/subacute ischemic infarction the right cerebellum. Patient is seen and examined this morning around 0815. Patient underwent tracheostomy and PEG tube placement 08/06/20. Overnight, she went into atrial fibrillation with RVR 10 PM. Patient was started on amiodarone drip, started with a bolus and following that she was maintained on 0.5 mg/min. She is on mechanical ventilation and sedated on propofol drip. She is not following any verbal commands. Vent setting AC tidal volume 400 FiO2 40% and PEEP of 5. Laboratory data reviewed, WBC 21.4, Hgb 8.6, Plt 739, Na 137, K 5.3, sCr 0.57, AST 80, ALT 124, Alk Phos 181. 08/08/2020: Patient seen and examined. Attempted to wean sedation and patient able to open eyes however no meaningful movements or interaction. Liver enzymes have been increasing with AST 2995 and ALT 2452, severely elevated from previous 80 and 120. Alk phos 157, total bilirubin 0.8. Amiodarone was discontinued. Heart rates predominantly 100s to 115 in A. fib. White blood cell count remains elevated at 24, hemoglobin 8.4. Increase metoprolol from 50-100 today. PHYSICAL EXAMINATION HEENT: Mucous membranes moist CHEST EXAMINATION: Bilateral rhonchi, no wheezes or crackles. Breath sounds are equal bilaterally HEART EXAMINATION: Irregular rhythm and rate S1, S2 heard. No murmurs, gallops or rub. Inscision clean dry intact ABDOMEN: Soft, Positive bowel sounds. EXTREMITIES: 2+ peripheral pulses, 2+ pitting edema, LUE PICC SKIN: No rashes NEUROLOGIC: Facial asymmetry, left sided weakness. Pupils are equal. Unable to elicit a motor response. Not following commands. ASSESSMENT NSTEMI, s/p three vessel CABG Respiratory failure, requiring tracheostomy and PEG tube placement Cerebrovascular accident post-operatively after CABG Paroxysmal atrial fibrillation with RVR after CABG History of coronary artery disease with previous myocardial infarction and stent placement Peripheral artery disease with lower extremity stenting History of Hypertension Hyperlipidemia History of lung cancer Acute liver injury PLAN -Stop amiodarone given severely elevated liver enzymes however degree of liver enzyme elevation more consistent with acute liver injury or ischemic hepatopathy. Continue to monitor closely. -Agree with transition to oral anticoagulation -Continue Aspirin and Statin -Continue to monitor patient's neurologic status, supportive care. Prognosis is guarded. Objective - Vital Signs Vital signs: Vital Signs Temp 98.8 F 08/07/20 20:00 Pulse 128 H 08/08/20 08:00 Resp 16 08/08/20 08:00 BP 120/70 08/08/20 08:00 Pulse Ox 96 08/08/20 08:00 Intake & Output 08/07/20 08/08/20 08/08/20 18:59 06:59 18:59 Intake Total 1579.176 623 50 Output Total 445 545 30 Balance 1134.176 78 20 Weight 92.4 kg Intake: IV 1265 600 50 D5-0.45% NaCl with KCl 60 20Meq/l 1,000 ml @ 60 mls /hr IV .[id number] [facility] Rx#: [id number] Dextrose 5% in Water 1, 1005 600 50 000 ml @ 50 mls/hr IV . Q23H [facility] with Sodium Bicarb (1 Meq/ml) 150 ml Rx#:[id number] cefTRIAXone 1 gm In 100 Sodium Chloride 0.9% 50 ml @ 100 mls/hr IVPB Q24HR [facility] Rx#:[id number] levETIRAcetam IV 500 mg 100 In Sodium Chloride 0.9% 100 ml @ 400 mls/hr IVPB Q12HR@0000,1200 [facility] Rx#: [id number] Intake, IV Titration 169.176 Amount Heparin Sod,Pork in 0.45% 98.167 NaCl 25,000 unit In 0.45 % NaCl 1 250ml.bag @ 10. 823 UNITS/KG/HR 10 mls/hr IV .Q24H [facility] Rx#: [id number] propofoL 1,000 mg In 71.009 Empty Bag 1 bag @ Titrate IV .Q0M [facility] Rx#: [id number] Tube Feeding 115 23 Other 30 Output: Urine 445 545 30 Other: Voiding Method Indwelling Catheter Indwelling Catheter Indwelling Catheter ABP, PAP, CO, CI - Last Documented Arterial Blood Pressure 113/55 Pulmonary Artery Pressure 40/20 Cardiac Output 4.3 Cardiac Index 2.2 - Labs CBC & Chem 7: 08/08/20 04:30 08/08/20 04:30 Labs: Abnormal Lab Results - Last 24 Hours (Table) 08/07/20 08/07/20 08/08/20 Range/Units 11:15 17:42 01:11 WBC (3.8-10.6) k/uL RBC (3.80-5.40) m/uL Hgb (11.4-16.0) gm/dL Hct (34.0-46.0) % Plt Count (150-450) k/uL Neutrophils # (1.3-7.7) k/uL APTT 51.8 H (22.0-30.0) sec ABG pO2 (83-108) mmHg Sodium (137-145) mmol/L BUN (7-17) mg/dL Glucose (74-99) mg/dL POC Glucose (mg/dL) 131 H 171 H (75-99) mg/dL AST (14-36) U/L ALT (4-34) U/L Alkaline Phosphatase (38-126) U/L Albumin (3.5-5.0) g/dL 08/08/20 08/08/20 08/08/20 Range/Units 01:39 04:30 04:30 WBC 24.6 H (3.8-10.6) k/uL RBC 2.80 L (3.80-5.40) m/uL Hgb 8.4 L (11.4-16.0) gm/dL Hct 25.7 L (34.0-46.0) % Plt Count 594 H (150-450) k/uL Neutrophils # 22.1 H (1.3-7.7) k/uL APTT (22.0-30.0) sec ABG pO2 (83-108) mmHg Sodium 136 L (137-145) mmol/L BUN 33 H (7-17) mg/dL Glucose 146 H (74-99) mg/dL POC Glucose (mg/dL) 149 H (75-99) mg/dL AST 2995 H (14-36) U/L ALT 2452 H (4-34) U/L Alkaline Phosphatase 157 H (38-126) U/L Albumin 3.2 L (3.5-5.0) g/dL 08/08/20 08/08/20 Range/Units 06:00 06:35 WBC (3.8-10.6) k/uL RBC (3.80-5.40) m/uL Hgb (11.4-16.0) gm/dL Hct (34.0-46.0) % Plt Count (150-450) k/uL Neutrophils # (1.3-7.7) k/uL APTT (22.0-30.0) sec ABG pO2 74 L (83-108) mmHg Sodium (137-145) mmol/L BUN (7-17) mg/dL Glucose (74-99) mg/dL POC Glucose (mg/dL) 149 H (75-99) mg/dL AST (14-36) U/L ALT (4-34) U/L Alkaline Phosphatase (38-126) U/L Albumin (3.5-5.0) g/dL Microbiology - Last 24 Hours (Table) 08/02/20 09:31 Blood Culture - Preliminary Blood No Growth after 120 hours 08/05/20 08:30 Gram Stain - Final Sputum Sputum Culture - Final Klebsiella oxytoca Lali albicans
[2020-08-08] MEDS: PANTOPRAZOLE 40 MG/10 ML VIAL IVP SCH (08:51)
[2020-08-08] MEDS: ASPIRIN 81 MG PO SCH (08:51)
[2020-08-08] MEDS: SERTRALINE 100 MG TAB PO SCH (08:51)
[2020-08-08] MEDS: CHLORHEXIDINE GLUCONATE 15 ML CUP MUCOUS MEM SCH ×2 (08:51→20:04)
[2020-08-08] MEDS: METOPROLOL TARTRATE 50 MG TAB PO SCH ×2 (08:51→20:04)
[2020-08-08] MEDS: SODIUM CHLORIDE 0.45% 1,000 ML IV SCH (08:58)
[2020-08-08] MEDS ORDERED: METOPROLOL TARTRATE 25 MG TAB PO SCH (09:00)
[2020-08-08 09:16] LABS: INR 1.3 (<1.2); Prothrombin Time 13.1 sec (9.0-12.0)
[2020-08-08 09:54] LABS: Amorphous Sediment,Urine Rare /hpf; Appearance,Urine Cloudy (Clear); Bilirubin,Urine Negative (Negative); Blood,Urine Large (Negative); Color,Urine Yellow; Glucose,Urine (UA) Negative (Negative); Hyaline Casts,Urine 1 /lpf (0-2); Ketones,Urine Negative (Negative); Leukocyte Esterase,Urine Negative (Negative); Mucus,Urine Rare /hpf; Nitrite,Urine Negative (Negative); Protein,Urine 1+ (Negative); RBC,Urine 150 /hpf (0-5); Specific Gravity,Urine 1.022 (1.001-1.035); Squamous Epithelial Cell,Urine <1 /hpf (0-4); Urobilinogen,Urine <2.0 mg/dL (<2.0); WBC,Urine 6 /hpf (0-5)
[2020-08-08] MEDS ORDERED: FUROSEMIDE 10 MG/ML 4 ML VIAL IV STA (10:00)
[2020-08-08] MEDS: APIXABAN 5 MG TAB PEG/G-TUBE SCH ×2 (10:18→20:04)
--- NOTE | 2020-08-08 10:45 | P.PN ---
Subjective Progress Note Date: 08/08/20 Principal diagnosis: Triple-vessel coronary artery disease, unstable angina. Past medical history significant for coronary artery disease with previous myocardial infarction and stent placement, peripheral arterial disease with lower extremity stenting, lung cancer status post right lower lobectomy in 2011, hypertension, hyperlipidemia, COPD with previous tobacco dependence, anxiety/depression, family history of premature coronary artery disease with 2 of her sons having had coronary artery bypass grafting surgery, significant plaque formation more than 75% stenosis at the origins of both internal and external carotid arteries bilaterally on CTA. POD #12 coronary artery bypass grafting 3 vessels, left internal mammary artery to the left anterior descending artery, a reverse greater saphenous vein graft to the obtuse marginal artery, a reverse greater saphenous vein graft to the posterior descending artery, endoscopic harvesting of the right greater saphenous vein, ligation of the left atrial appendage using a 35 mm AtriClip, epi-aortic ultrasound and intraoperative transesophageal echocardiogram. POD #2 tracheostomy tube placement #[address] Alan. POD #2 EGD with her cutaneous endoscopic gastrostomy tube placement by Dr. Chavarria. Postoperative acute blood loss anemia, expected given hemodilution and cardiopulmonary bypass pump. Postoperative right acute/subacute cerebellar infarct on brain CT, unexpected, although possible complication of any open heart surgery, especially given patient's known history of significant arterial disease. Prolonged mechanical ventilation, unexpected, secondary to acute stroke. Paroxysmal atrial fibrillation, known common occurrence after open heart surgery. The patient was seen in follow-up today 08/08/2020 at her bedside in the intensive care unit. Currently she is lying in bed, and is unresponsive to verbal stimuli with sedation being on hold for 24 hours. She does withdrawal from noxious stimuli to her bilateral upper and lower extremities. No tracking with her eyes. Her tracheostomy is midline with mechanical ventilator support. Oxygen saturations are currently 96% on an assist control of 16, TV 400, FiO2 40% and PEEP of 5. ABG results this morning show a pH of 7.44, pCO2 35, pO2 74, 8 CO2 23, oxygen saturation 95% and base excess -0.9. She remained afebrile the last 24 hours. Laboratory results this morning show a WBC count 24.6, hemoglobin 8.4, hematocrit 25.7, platelets 594, sodium 137, potassium 5.3, BUN 33, creatinine 0.80, elevated AST of 2995 and elevated ALT 2425. Bedside telemetry showing atrial fibrillation heart rate 116 BPM. She was started on amiodarone per protocol yesterday and was converted to amiodarone 200 mg per PEG tube twice a day. She remains on heparin drip per protocol. PEG tube is in place with vital high-protein infusing at goal rate of 23 mL per hour. Objective - Vital Signs Vital signs: Vital Signs Temp 98.8 F 08/07/20 20:00 Pulse 128 H 08/08/20 08:00 Resp 16 08/08/20 08:00 BP 120/70 08/08/20 08:00 Pulse Ox 96 08/08/20 08:00 Intake & Output 08/07/20 08/08/20 08/08/20 18:59 06:59 18:59 Intake Total 1579.176 623 50 Output Total 445 545 30 Balance 1134.176 78 20 Weight 92.4 kg Intake: IV 1265 600 50 D5-0.45% NaCl with KCl 60 20Meq/l 1,000 ml @ 60 mls /hr IV .[id number] [facility] Rx#: [id number] Dextrose 5% in Water 1, 1005 600 50 000 ml @ 50 mls/hr IV . Q23H [facility] with Sodium Bicarb (1 Meq/ml) 150 ml Rx#:[id number] cefTRIAXone 1 gm In 100 Sodium Chloride 0.9% 50 ml @ 100 mls/hr IVPB Q24HR [facility] Rx#:[id number] levETIRAcetam IV 500 mg 100 In Sodium Chloride 0.9% 100 ml @ 400 mls/hr IVPB Q12HR@0000,1200 [facility] Rx#: [id number] Intake, IV Titration 169.176 Amount Heparin Sod,Pork in 0.45% 98.167 NaCl 25,000 unit In 0.45 % NaCl 1 250ml.bag @ 10. 823 UNITS/KG/HR 10 mls/hr IV .Q24H [facility] Rx#: [id number] propofoL 1,000 mg In 71.009 Empty Bag 1 bag @ Titrate IV .Q0M [facility] Rx#: [id number] Tube Feeding 115 23 Other 30 Output: Urine 445 545 30 Other: Voiding Method Indwelling Catheter Indwelling Catheter Indwelling Catheter ABP, PAP, CO, CI - Last Documented Arterial Blood Pressure 113/55 Pulmonary Artery Pressure 40/20 Cardiac Output 4.3 Cardiac Index 2.2 - Exam The patient remains intubated with mechanical ventilator support. Her sedation has been on hold for around 24 hours. She is mostly unresponsive except to noxious stimuli. She does grimace and withdrawal from all 4 extremities. - Constitutional General appearance: Present: no acute distress, obese - EENT EENT Comment(s): Scleral edema. Eyes: Present: normal appearance. Absent: scleral icterus - Neck Details: Neck is supple, no JVD. No lymphadenopathy. - Respiratory Details: Lung sounds with coarse rhonchi throughout, diminished bilateral bases. Resp irations are symmetrical and nonlabored with mechanical ventilator support. Oxygen saturation are 96% with an assist control of 16, TV 400, FiO2 40% and PEEP of 5. Tracheostomy tube is midline and intact. #7 Bivona. - Cardiovascular Details: Irregular rhythm and tachycardic rate. S1 and S2 present, negative for S3, gallop or murmur. Sternum is stable. Heart hugger is in place. Bedside telemetry showing atrial fibrillation heart rate 116 BPM. Generalized +1 edema. Knee-high DEBI hose and sequential compression devices in place to bilateral lower extremities. - Gastrointestinal Gastrointestinal Comment(s): Abdomen is soft, nontender and nondistended distended. Active bowel sounds present in all 4 abdominal quadrants. No guarding or rigidity. No organomegaly appreciated. PEG tube in place with continuous tube feedings vital high-protein infusing at goal rate of 23 mL per hour. - Genitourinary Genitourinary Comment(s): Da Silva catheter for accurate I&O. Draining clear nydia urine with 460 mL output in the last 8 hours. - Integumentary Integumentary Comment(s): Skin is warm and dry. No clubbing or cyanosis present. Midline sternal incision is clean, dry and approximated. No drainage or redness is present. R ight lower extremity EVH site is clean, dry and approximated. No drainage or redness is present. - Neurologic Neurologic Comment(s): Patient is unresponsive to verbal stimuli. Does withdraw from noxious stimuli to her bilateral upper and lower extremities. Patient does grimace with noxious stimuli. - Musculoskeletal Musculoskeletal Comment(s): Unable to accurately assess at this time as the patient is not following any verbal commands. - Psychiatric Psychiatric Comment(s): Patient is unresponsive to verbal stimuli. Does withdraw from noxious stimuli to her bilateral upper and lower extremities. Patient does grimace with noxious stimuli. - Allied health notes Allied health notes reviewed: nursing - Labs CBC & Chem 7: 08/08/20 04:30 08/08/20 04:30 Labs: Abnormal Lab Results - Last 24 Hours (Table) 08/07/20 08/07/20 08/08/20 Range/Units 11:15 17:42 01:11 WBC (3.8-10.6) k/uL RBC (3.80-5.40) m/uL Hgb (11.4-16.0) gm/dL Hct (34.0-46.0) % Plt Count (150-450) k/uL Neutrophils # (1.3-7.7) k/uL APTT 51.8 H (22.0-30.0) sec ABG pO2 (83-108) mmHg Sodium (137-145) mmol/L BUN (7-17) mg/dL Glucose (74-99) mg/dL POC Glucose (mg/dL) 131 H 171 H (75-99) mg/dL AST (14-36) U/L ALT (4-34) U/L Alkaline Phosphatase (38-126) U/L Albumin (3.5-5.0) g/dL 08/08/20 08/08/20 08/08/20 Range/Units 01:39 04:30 04:30 WBC 24.6 H (3.8-10.6) k/uL RBC 2.80 L (3.80-5.40) m/uL Hgb 8.4 L (11.4-16.0) gm/dL Hct 25.7 L (34.0-46.0) % Plt Count 594 H (150-450) k/uL Neutrophils # 22.1 H (1.3-7.7) k/uL APTT (22.0-30.0) sec ABG pO2 (83-108) mmHg Sodium 136 L (137-145) mmol/L BUN 33 H (7-17) mg/dL Glucose 146 H (74-99) mg/dL POC Glucose (mg/dL) 149 H (75-99) mg/dL AST 2995 H (14-36) U/L ALT 2452 H (4-34) U/L Alkaline Phosphatase 157 H (38-126) U/L Albumin 3.2 L (3.5-5.0) g/dL 08/08/20 08/08/20 Range/Units 06:00 06:35 WBC (3.8-10.6) k/uL RBC (3.80-5.40) m/uL Hgb (11.4-16.0) gm/dL Hct (34.0-46.0) % Plt Count (150-450) k/uL Neutrophils # (1.3-7.7) k/uL APTT (22.0-30.0) sec ABG pO2 74 L (83-108) mmHg Sodium (137-145) mmol/L BUN (7-17) mg/dL Glucose (74-99) mg/dL POC Glucose (mg/dL) 149 H (75-99) mg/dL AST (14-36) U/L ALT (4-34) U/L Alkaline Phosphatase (38-126) U/L Albumin (3.5-5.0) g/dL Microbiology - Last 24 Hours (Table) 08/02/20 09:31 Blood Culture - Preliminary Blood No Growth after 120 hours 08/05/20 08:30 Gram Stain - Final Sputum Sputum Culture - Final Klebsiella oxytoca Lali albicans - Imaging and Cardiology Chest x-ray: report reviewed, image reviewed Assessment and Plan Assessment: 1. Triple-vessel coronary artery disease, unstable angina, status post three- vessel CABG 2. History of coronary artery disease with previous myocardial infarction and stent placement 3. Peripheral arterial disease with lower extremity stenting 4. History of lung cancer status post right lower lobectomy 5. Hypertension, currently hypotensive requiring IV pressors 6. Hyperlipidemia, treated, cholesterol 152, LDL 85 7. COPD with previous tobacco dependence, preoperative FEV1 82% of predicted 8. Anxiety/depression 9. Family history of premature coronary artery disease 10. Postoperative acute blood loss anemia, expected, status post 1 unit packed red blood cell transfusion 11. Postoperative acute/subacute right cerebellar infarct, unexpected, with evidence of previous right parietal stroke 12. Bilateral internal carotid artery disease greater than 75% present on CTA 13. Prolonged mechanical ventilation, unexpected acute hypoxemic respiratory failure because of her recent CVA, status post tracheostomy placement 14. Paroxysmal atrial fibrillation, status post ligation of the left atrial appendage, currently sinus rhythm 15. Leukocytosis, final sputum culture results shows Klebsiella oxytoca and Lali albicans 16. Malnutrition, status post percutaneous endoscopic gastrostomy tube placement 17. Elevated transaminase enzymes, likely secondary to amiodarone Plan: 1. Continue aspirin, and beta tran. Metoprolol tartrate was increased to 75 mg G-tube twice a day. 2. Routine tracheostomy care. 3. Mechanical ventilator management per pulmonology/critical care management. Bronchodilators per pulmonology/critical care management. Patient's tidal volume on mechanical ventilation was increased to [address] Roger. 4. The patient son Christian has been updated on her care. 5. Continue to monitor daily labs and chest x-rays. Electrolyte replacement per protocol. 6. GI and DVT prophylaxis. 7. Discontinue amiodarone and statin due to her elevated liver enzymes. We will restart her statin once her liver enzymes have normalized. 8. Continue Da Silva catheter and record accurate I's and O's. Change out Da Silva catheter today. 9. Pain control with current when necessary orders. 10. Strict accurate intake and output. Daily weights 11. Final result of sputum culture showing Klebsiella oxytoca, currently on Rocephin for antibiotic treatment. Remains afebrile the last 24 hours. WBC count today is 24.6 which is trending up. Send urinalysis with reflex culture. 12. Send lipase, amylase, PT/INR and lactic acid level due to elevated liver enzymes. 13. Consult infectious disease for leukocytosis. 14. Consult Dr. Arriaga, from gastroenterology for elevated liver enzymes. 15. Lasix 40 mg IV 1 now. 16. Discontinue heparin drip and start Eliquis 5 mg per PEG tube twice a day for anticoagulation. 17. More recommendations to follow based on patient's clinical course. Time with Patient: Greater than 30
[2020-08-08 11:06] LABS: Glucose,Whole Blood 143 mg/dL (75-99)
[2020-08-08 14:40] LABS: African American GFR (CKD) >90 (>60 ml/min/1.73 sqM); Alkaline Phosphatase 156 U/L (38-126); Anion Gap 7 mmol/L; Blood Urea Nitrogen 36 mg/dL (7-17); Calcium 8.1 mg/dL (8.4-10.2); Carbon Dioxide 28 mmol/L (22-30); Chloride 102 mmol/L (98-107); Glucose 126 mg/dL (74-99); Non-African American GFR(CKD) 82 (>60 ml/min/1.73 sqM); Potassium 3.9 mmol/L (3.5-5.1); Sodium 137 mmol/L (137-145); Total Bilirubin 0.6 mg/dL (0.2-1.3); Total Protein 5.6 g/dL (6.3-8.2)
[2020-08-08 15:07] LABS: ALT 2206 U/L (4-34)
--- NOTE | 2020-08-08 15:23 | P.PN ---
Subjective Progress Note Date: 08/08/20 CHIEF COMPLAINT: Malnutrition HISTORY OF PRESENT ILLNESS: Patient seen and examined with Dr. Pena. Ramirez whiting is in the ICU. She is status post PEG tube placement by Dr. pena on 08/06/2020. Patient is tolerating tube feedings. No residual from tube feeding. She is status post tracheostomy placement by Dr. Alan. Patient is intubated and her sedation is on hold. Eliquis started today and heparin drip was discontinued. Afebrile WBC 24.6 PHYSICAL EXAM: VITAL SIGNS: Reviewed. GENERAL: Well-developed in no acute distress. HEENT: No sclera icterus. Extraocular movements grossly intact. Moist buccal mucosa. Head is atraumatic, normocephalic. ABDOMEN: Soft. Nondistended. Nontender. PEG tube site clean dry and intact NEUROLOGIC: Patient is intubated. ASSESSMENT: 1. Moderate protein calorie malnutrition status post PEG tube placement PLAN: -Continue supportive care -Titrate PEG tube feedings per dietitian recommendations Physician Principal Gifts Officer note has been reviewed by physician. Signing provider agrees with the documented findings, assessment, and plan of care. Objective - Vital Signs Vital signs: Vital Signs Temp 98.3 F 08/08/20 12:00 Pulse 116 H 08/08/20 14:00 Resp 21 08/08/20 14:00 BP 103/65 08/08/20 14:00 Pulse Ox 96 08/08/20 14:00 Intake & Output 08/07/20 08/08/20 08/08/20 18:59 06:59 18:59 Intake Total 1579.176 623 918 Output Total 445 545 830 Balance 1134.176 78 88 Weight 92.4 kg 92.4 kg Intake: IV 1265 600 200 D5-0.45% NaCl with KCl 60 20Meq/l 1,000 ml @ 60 mls /hr IV .[id number] INÉS Rx#: [id number] Dextrose 5% in Water 1, 1005 600 50 000 ml @ 50 mls/hr IV . Q23H IN[facility] with Sodium Bicarb (1 Meq/ml) 150 ml Rx#:[id number] cefTRIAXone 1 gm In 100 50 Sodium Chloride 0.9% 50 ml @ 100 mls/hr IVPB Q24HR IÉNS Rx#:[id number] levETIRAcetam IV 500 mg 100 100 In Sodium Chloride 0.9% 100 ml @ 400 mls/hr IVPB Q12HR@0000,1200 IN[facility]S Rx#: [id number] Intake, IV Titration 169.176 350 Amount Heparin Sod,Pork in 0.45% 98.167 NaCl 25,000 unit In 0.45 % NaCl 1 250ml.bag @ 10. 823 UNITS/KG/HR 10 mls/hr IV .Q24H INÉS Rx#: [id number] Sodium Chloride 0.45% 1, 350 000 ml @ 50 mls/hr IV . Q20H IN[facility] Rx#:[id number] propofoL 1,000 mg In 71.009 Empty Bag 1 bag @ Titrate IV .Q0M IN[facility]S Rx#: [id number] Tube Feeding 115 23 238 Other 30 130 Output: Urine 445 545 830 Other: Voiding Method Indwelling Catheter Indwelling Catheter Indwelling Catheter ABP, PAP, CO, CI - Last Documented Arterial Blood Pressure 113/55 Pulmonary Artery Pressure 40/20 Cardiac Output 4.3 Cardiac Index 2.2 - Labs CBC & Chem 7: 08/08/20 04:30 08/08/20 14:04 Labs: Abnormal Lab Results - Last 24 Hours (Table) 08/07/20 08/08/20 08/08/20 Range/Units 17:42 01:11 01:39 WBC (3.8-10.6) k/uL RBC (3.80-5.40) m/uL Hgb (11.4-16.0) gm/dL Hct (34.0-46.0) % Plt Count (150-450) k/uL Neutrophils # (1.3-7.7) k/uL PT (9.0-12.0) sec INR (<1.2) APTT 51.8 H (22.0-30.0) sec ABG pO2 (83-108) mmHg Sodium (137-145) mmol/L BUN (7-17) mg/dL Glucose (74-99) mg/dL POC Glucose (mg/dL) 171 H 149 H (75-99) mg/dL Calcium (8.4-10.2) mg/dL AST (14-36) U/L ALT (4-34) U/L Alkaline Phosphatase (38-126) U/L Total Protein (6.3-8.2) g/dL Albumin (3.5-5.0) g/dL Lipase (23-300) U/L Urine Appearance (Clear) Urine Protein (Negative) Urine Blood (Negative) Urine RBC (0-5) /hpf Urine WBC (0-5) /hpf Amorphous Sediment (None) /hpf Urine Mucus (None) /hpf 08/08/20 08/08/20 08/08/20 Range/Units 04:30 04:30 06:00 WBC 24.6 H (3.8-10.6) k/uL RBC 2.80 L (3.80-5.40) m/uL Hgb 8.4 L (11.4-16.0) gm/dL Hct 25.7 L (34.0-46.0) % Plt Count 594 H (150-450) k/uL Neutrophils # 22.1 H (1.3-7.7) k/uL PT (9.0-12.0) sec INR (<1.2) APTT (22.0-30.0) sec ABG pO2 74 L (83-108) mmHg Sodium 136 L (137-145) mmol/L BUN 33 H (7-17) mg/dL Glucose 146 H (74-99) mg/dL POC Glucose (mg/dL) (75-99) mg/dL Calcium (8.4-10.2) mg/dL AST 2995 H (14-36) U/L ALT 2452 H (4-34) U/L Alkaline Phosphatase 157 H (38-126) U/L Total Protein (6.3-8.2) g/dL Albumin 3.2 L (3.5-5.0) g/dL Lipase (23-300) U/L Urine Appearance (Clear) Urine Protein (Negative) Urine Blood (Negative) Urine RBC (0-5) /hpf Urine WBC (0-5) /hpf Amorphous Sediment (None) /hpf Urine Mucus (None) /hpf 08/08/20 08/08/20 08/08/20 Range/Units 06:35 08:42 08:42 WBC (3.8-10.6) k/uL RBC (3.80-5.40) m/uL Hgb (11.4-16.0) gm/dL Hct (34.0-46.0) % Plt Count (150-450) k/uL Neutrophils # (1.3-7.7) k/uL PT 13.1 H (9.0-12.0) sec INR 1.3 H (<1.2) APTT (22.0-30.0) sec ABG pO2 (83-108) mmHg Sodium (137-145) mmol/L BUN (7-17) mg/dL Glucose (74-99) mg/dL POC Glucose (mg/dL) 149 H (75-99) mg/dL Calcium (8.4-10.2) mg/dL AST (14-36) U/L ALT (4-34) U/L Alkaline Phosphatase (38-126) U/L Total Protein (6.3-8.2) g/dL Albumin (3.5-5.0) g/dL Lipase 450 H (23-300) U/L Urine Appearance (Clear) Urine Protein (Negative) Urine Blood (Negative) Urine RBC (0-5) /hpf Urine WBC (0-5) /hpf Amorphous Sediment (None) /hpf Urine Mucus (None) /hpf 08/08/20 08/08/20 08/08/20 Range/Units 08:42 11:04 14:04 WBC (3.8-10.6) k/uL RBC (3.80-5.40) m/uL Hgb (11.4-16.0) gm/dL Hct (34.0-46.0) % Plt Count (150-450) k/uL Neutrophils # (1.3-7.7) k/uL PT (9.0-12.0) sec INR (<1.2) APTT (22.0-30.0) sec ABG pO2 (83-108) mmHg Sodium (137-145) mmol/L BUN 36 H (7-17) mg/dL Glucose 126 H (74-99) mg/dL POC Glucose (mg/dL) 143 H (75-99) mg/dL Calcium 8.1 L (8.4-10.2) mg/dL AST (14-36) U/L ALT 2206 H (4-34) U/L Alkaline Phosphatase 156 H (38-126) U/L Total Protein 5.6 L (6.3-8.2) g/dL Albumin 3.0 L (3.5-5.0) g/dL Lipase (23-300) U/L Urine Appearance Cloudy H (Clear) Urine Protein 1+ H (Negative) Urine Blood Large H (Negative) Urine RBC 150 H (0-5) /hpf Urine WBC 6 H (0-5) /hpf Amorphous Sediment Rare H (None) /hpf Urine Mucus Rare H (None) /hpf Microbiology - Last 24 Hours (Table) 08/02/20 09:31 Blood Culture - Final Blood No Growth after 144 hours
[2020-08-08 15:37] LABS: AST 2176 U/L (14-36)
--- NOTE | 2020-08-08 17:18 | CONS ---
CONSULTATION DATE OF DICTATION: 08/08/2020 REASON FOR CONSULTATION: Elevated LFTs. HISTORY OF PRESENT ILLNESS: The patient is a 75-year-old pleasant white female admitted to the hospital on 07/27/2020 with triple-vessel coronary artery disease, for which she underwent coronary artery bypass surgery on 07/28/2020, and the patient is postoperative day number 12. The reason we are consulted is for evaluation of elevated transaminases. At the time of admission to the hospital, serum transaminases were within normal limits. Following the surgery, the patient suffered a massive stroke with left-sided hemiparesis, and since then she has been on the vent, intubated and sedated. Over the last 10 days her serum transaminases were gradually increasing, which were in the range of 100s and 200s. However, today they were significantly elevated into the 2000 range, and hence we are consulted for further evaluation. On reviewing the medical records, the patient had normal serum transaminases prior to the CABG surgery. There is no history of underlying liver disease. No history of alcoholism. On review of the medications, the patient has been in and out of atrial fibrillation since the CABG surgery and has been on amiodarone on and off. She also has been on ceftriaxone for the last 12 days. She was started on statins a day after the bypass surgery, which is currently on hold. She is currently sedated and intubated, and history was obtained from the chart. MEDICATIONS AT HOME: Medications at home include trazodone, Pletal, Norvasc, Zoloft, Cozaar, Motrin, [place], Zetia, Neurontin, Flexeril, Plavix, Coreg, Lipitor, aspirin and Xanax. PAST MEDICAL HISTORY: Coronary artery disease, status post [place] in the past, history of hypertension anxiety, hyperlipidemia, depression. ALLERGIES: PENICILLIN and AMBIEN. SOCIAL HISTORY: No smoking. No alcohol use. FAMILY HISTORY: Unremarkable. PAST SURGICAL HISTORY: CABG on 07/28/2020, history of right lower lobectomy for lung cancer, peripheral vascular disease, for which she underwent angioplasty with stent placements. REVIEW OF SYSTEMS: Review of systems could not be obtained, as patient is sedated on the vent. PHYSICAL EXAMINATION: Vital signs show blood pressure of 103/65, pulse rate 116, temperature 98.3. HEENT examination unremarkable. Conjunctivae pink. Sclerae anicteric. Oral cavity no lesions. NECK: No JVD. CHEST: Decreased breath sounds bilaterally. HEART: Regular rate and rhythm. ABDOMEN: Soft. Bowel sounds are positive. No organomegaly. EXTREMITIES: No pedal edema. NEUROLOGIC: Sedated on the vent. LABS: Labs from today show AST 2995, ALT 2452, T-bilirubin 0.8, alkaline phosphatase 157. At the time of admission to the hospital on 07/27/2020, AST, ALT, T-bilirubin and alkaline phosphatase were within normal limits. IMPRESSION: 1. Elevated serum transaminases for the last 2 weeks which have significantly worsened today in this patient with no prior history of chronic liver disease; in fact, her serum transaminases were normal at the time of admission to the hospital, which makes it very likely we are dealing with medication-induced hepatitis. I reviewed the entire list of medications that the patient has received from the time of coronary artery bypass surgery until now, and it appears that the likely cause would be either amiodarone, statins or antibiotics. The amiodarone and statins have been discontinued today. She continues to remain on ceftriaxone. There is no documented evidence of any hypertension to consider ischemic hepatitis at this time. Doubt viral hepatitis. At this time possibility of liver disease also needs to be considered. 2. Status post coronary artery bypass grafting, day number 12. Remains intubated, sedated, with acute respiratory failure. 3. Massive cerebrovascular accident following coronary artery bypass grafting. 4. History of hypertension. 5. History of coronary artery disease. 6. Atrial fibrillation, on amiodarone, currently on hold. 7. Klebsiella pneumoniae, on antibiotics, and Dr. Neal has been consulted. RECOMMENDATIONS: 1. Agree with holding off on amiodarone as well as statins. 2. Will discuss with Dr. Neal regarding the need for changing the antibiotics. 3. Monitor LFTs closely. 4. Obtain hepatitis serologies for A, B and C. 5. Ultrasound of the liver. 6. Repeat labs in the morning. Will follow with you closely. Thank you for this consultation. MMDHARMESHL / GINGERN: [id number] /
[2020-08-08 18:57] LABS: Glucose,Whole Blood 136 mg/dL (75-99)
[2020-08-08] MEDS: hydrALAZINE HCL 20 MG/ML 1 ML VIAL IVP PRN (19:11)
[2020-08-08] MEDS: SENNOSIDES-DOCUSATE SODIUM 1 EACH TAB PO SCH (20:04)
--- NOTE | 2020-08-08 22:19 | CONS ---
CONSULTATION DATE OF SERVICE: 08/08/2020 REASON FOR CONSULTATION: Leukocytosis. HISTORY OF PRESENT ILLNESS: The patient is a 75-year-old female admitted to the hospital about 2 weeks ago on 07/21/2020 for an elective coronary artery bypass grafting x3 vessels. That was completed the same day. The patient postoperatively had a right subacute cerebellar infarct on brain CT and was on prolonged mechanical ventilation and failed to be extubated. She is status post tracheostomy and PEG tube placement. The patient also has paroxysmal atrial fibrillation. This patient is currently on the vent with a trach. The patient has had a low-grade fever here and there during this hospital stay. It was 100.1 this morning; however, the patient was noted to have significant worsening of her white count up to 24.6 today. It was 21.4 and it has been gradually creeping up. The patient did have a workup for the same, including UA that was relatively negative; no leukocyte esterase or significant pyuria. The patient did have COVID and hepatitis testing on admission. They were negative. The patient did have normal creatinine. She did have elevated liver enzymes, though. They have been slowly progressing up. Blood culture from 08/02 has been negative. Sputum has been positive for Klebsiella and Lali albicans. The patient did have a chest x-ray; correlate for edema, pneumonia, effusion, impression provided by the radiologist. The patient is currently being treated with Rocephin 1 gram daily from 08/03. Infectious Disease was consulted because of her elevated white count. Most of the information has been obtained from review of the chart and talking to nursing staff, as the patient is currently on the vent. She opened her eyes but did not provide any history. REVIEW OF SYSTEMS: Positive points have been mentioned in the HPI. Complete review could not be obtained because of her underlying status. PAST MEDICAL HISTORY: COPD, hyperlipidemia, heart failure, coronary artery disease, hypertension, lung cancer and colon polyps. PAST SURGICAL HISTORY: PTCA with stent, hysterectomy, right lower lobectomy, colonoscopy, stenting and angioplasty. SOCIAL HISTORY: Remote history of smoking. No drinking or drug use. FAMILY HISTORY: Mother with history of colon cancer. ALLERGIES: PENICILLIN and AMBIEN. MEDICATIONS: The patient is currently on Zoloft, Senokot, Protonix, Zofran, Lopressor, Reglan, milk of magnesia, Cozaar, Lamictal, NovoLog, hydralazine, Rocephin, Dulcolax,Cepacol lozenges, aspirin, Eliquis, DuoNeb and Roff. PHYSICAL EXAMINATION: Blood pressure 135/80 with a pulse of 110, temperature 98.5. She is 91% on 40% FiO2. General description is an elderly female lying in bed in no distress. No tachypnea or accessory muscle of respiration use. HEENT: Examination shows some pallor. No scleral icterus. Oral mucous membrane is dry. NECK: Trach site is clean. LUNGS: Unlabored breathing. Decreased breath sounds at bases. No wheeze. HEART: S1, S2. Regular rate and rhythm. ABDOMEN: Soft. No tenderness. No guarding or rigidity. EXTREMITIES: Some trace edema of feet. SKIN EXAMINATION: No rash or mass palpable. She did have multiple bruises, though. Neurologically the patient responds to her name. However, nonverbal. Orientation could not be determined. LABS: Hemoglobin 8.4, white count 4.6 with a left shift. BUN of 36, creatinine 0.72. Liver enzymes are elevated. Chest x-ray report as mentioned above. Urine is negative. DIAGNOSTIC IMPRESSION AND PLAN: Patient with elevated white count in this patient who is status post coronary bypass grafting about 2 weeks ago and did have postoperative respiratory failure requiring trach and PEG tube and a cerebellar stroke with no high-grade fever. Possible etiology of elevated white count could be related to possible oropharyngeal candidiasis, as there is evidence of Lali in the sputum and her abdomen is soft on clinical examination. No evidence of any diarrhea and urine is negative. However, did have elevated liver enzymes, questionably related to hepatic congestion from underlying cardiac etiology versus underlying hepatocellular disease. PLAN: 1. Will obtain ultrasound of the liver and gallbladder area. 2. Will add Diflucan and continue with Rocephin. 3. We will follow her clinical condition and investigations and further adjust medication if needed. Thank you for this consultation. Will follow this patient along with you. MMODL / IJN: [id number] / BELINDA
[2020-08-08] MEDS ORDERED: FLUCONAZOLE 100 MG TAB PO ONE (22:34)
[2020-08-08 23:12] LABS: Glucose,Whole Blood 157 mg/dL (75-99)
[2020-08-09] MEDS: ONDANSETRON 4 MG/2 ML VIAL IVP PRN (03:43)
[2020-08-09] MEDS: ARTIFICIAL TEARS OINTMENT 3.5 GM TUBE BOTH EYES SCH ×5 (03:43→20:25)
[2020-08-09 04:28] LABS: Basophils # (A) 0.1 k/uL (0-0.2); Basophils % (A) 0 %; Eosinophils # (A) 0.2 k/uL (0-0.7); Eosinophils % (A) 1 %; HCT 24.8 % (34.0-46.0); HGB 7.7 gm/dL (11.4-16.0); Hypochromasia Slight; Lymphocytes # (A) 1.3 k/uL (1.0-4.8); Lymphocytes % (A) 6 %; MCH 28.8 pg (25.0-35.0); MCHC 31.2 g/dL (31.0-37.0); MCV 92.2 fL (80.0-100.0); Mean Platelet Volume 7.3; Monocytes # (A) 0.7 k/uL (0-1.0); Monocytes % (A) 3 %; Neutrophils # (A) 18.7 k/uL (1.3-7.7); Neutrophils % (A) 89 %; Platelet Count 643 k/uL (150-450); RBC 2.69 m/uL (3.80-5.40); RDW 15.2 % (11.5-15.5); WBC 21.2 k/uL (3.8-10.6)
[2020-08-09 04:41] LABS: African American GFR (CKD) >90 (>60 ml/min/1.73 sqM); Albumin 2.7 g/dL (3.5-5.0); Alkaline Phosphatase 138 U/L (38-126); Anion Gap 6 mmol/L; Blood Urea Nitrogen 41 mg/dL (7-17); C Reactive Protein 82.8 mg/L (<10.0); Carbon Dioxide 28 mmol/L (22-30); Chloride 103 mmol/L (98-107); Glucose 117 mg/dL (74-99); Non-African American GFR(CKD) 86 (>60 ml/min/1.73 sqM); Potassium 3.7 mmol/L (3.5-5.1); Sodium 137 mmol/L (137-145); Total Bilirubin 0.7 mg/dL (0.2-1.3); Total Protein 5.2 g/dL (6.3-8.2)
[2020-08-09] MEDS: SODIUM CHLORIDE 0.45% 1,000 ML IV SCH (04:44)
[2020-08-09 04:55] LABS: ALT 1775 U/L (4-34); AST 1417 U/L (14-36)
[2020-08-09 05:09] LABS: Hepatitis A Antibody IgM Non-Reactive (Non-Reactive); Hepatitis B Core IgM Non-Reactive (Non-Reactive); Hepatitis B Surface Antigen Non-Reactive (Non-Reactive); Hepatitis C IgG Antibody Non-Reactive (Non-Reactive)
[2020-08-09] MEDS: POTASSIUM CHLORIDE 10 MEQ in WATER FOR INJECTION 1 100ML.BAG IVPB SCH ×2 (05:19→06:35)
[2020-08-09 05:26] LABS: Glucose,Whole Blood 117 mg/dL (75-99)
[2020-08-09] MEDS: INSULIN ASPART (NovoLOG) 100 UNIT/ML VIAL SQ SCH ×3 (05:31→17:09)
[2020-08-09 05:33] LABS: ABG Base Excess 2.8 mmol/L; ABG HCO3 27 mmol/L (21-25); ABG Oxygen Saturation 98.4 % (94-97); ABG PCO2 38 mmHg (35-45); ABG PH 7.46 (7.35-7.45); ABG PO2 95 mmHg (83-108); ABG TCO2 28 mmol/L (19-24); Allen Test Performed? Yes
--- NOTE | 2020-08-09 06:32 | P.PN ---
Subjective 08/03/2020 This is a pleasant 75-year-old patient of Dr. Derrick Neal. Chronic stable medical conditions include COPD, hyperlipidemia, hypertension, ostial arthritis, lung cancer 6 years ago, peripheral artery disease, coronary artery stent, perip heral stents, anxiety depression. Patient presented after she was having central chest pressure at home then went to both the shoulder blades for the arms. Admitted with unstable angina. underwent cardiac catheterization. Found to have severe triple-vessel coronary artery disease. Pulmonary team evaluated the patient and told her low risk for surgery. July 27-underwent coronary bypass 3, ligation of left atrial appendage. Patient received a unit of blood.postsurgery was found to have weakness on the left side.stroke was noted on the computed tomography scan. Including lacunar infarct.patient has been in and out of atrial fibrillation. computed tomography scan of the brain reviewed by Dr. Carrion: Acute bilateral cerebellar ischemic stroke as well as subacute evolving ischemic infarction involving the right MCA/TAZ watershed territory left caudate head ischemic infarction. Weed to be embolic. ICU-ventilator , has NG tube Today she remains in the ICU intubated and sedated with pulmonary/critical care team following her closely. And help with vent management. Her breathing rate is around 28, blood pressure 149/77, she is a slightly tachycardiac 95-120. Afebrile for 24 hours. Labs showed leukocytosis of 22.5, hemoglobin 7.7. BMP is unremarkable. Liver enzymes mildly elevated. Glucose is controlled. Patient evaluated by surgery team for PEG tube placement on 08/06, with coinciding take his replacement patient is undergoing sedation holiday by pulmonary team Sputum culture is growing gram-positive cocci and antibiotics were initiated by pulmonary team, currently she is on ceftriaxone Medication included heparin drip, Keppra and amiodarone 08/04/2020 Patient remains intubated and sedated in the ICU with pulmonary/critical care team monitor the patient closely. And help with event management. She still underwent going sedation a trial with poor response, probably related to her general condition and multiple cerebral infarcts involving the right MCA and TAZ. Surgical team to evaluate the patient for possible tracheostomy and PEG tube per pulmonary/critical care team recommendation possibly on Sunday 08/06 Patient is with low-grade fever today at 100.4, vitals looks stable WBC trended down slowly to 17.4 K. Hemoglobin 7.7. Compared to 6.9 yesterday, patient is status post blood transfusion BMP is unremarkable. Sugar control. Bilirubin is normal, liver enzymes slightly elevated. Patient currently on Rocephin . She is on Keppra and heparin drip. patient is followed closely by cardiology and cardiothoracic surgery team. Neurology team already evaluated the patient 08/05/2020 Patient remains intubated and sedated in the ICU with pulmonary/critical care team monitor the patient closely. And help with event management. She still undergoing sedation trial by pulmonary team with poor response and they recommended tracheostomy and PEG tube to be performed by surgery team tomorrow. Other than that continue with supportive care Neurology evaluated the patient today and recommended to continue with anticoagulation for her A. fib and stroke together with aspirin for her bilateral internal carotid artery stenosis but can stop Plavix Gastrointestinal persistent leukocytosis of 16.6 and currently patient is on ceftriaxone by the pulmonary team, BMP, electrolytes, creatinine and mildly elevated liver enzymes remain stable. Prognosis is guarded 08/06/2020 Patient remains in the ICU intubated and sedated with pulmonary/critical care team following him closely and vent management Patient failed several attempts versus sedation holiday probably related to her new stroke. Patient is scheduled for PEG tube placement and tracheostomy by surgical team today Is still on anticoagulation, aspirin and Plavix. Also he is on ceftriaxone 08/07/2020 Patient is a status post tracheostomy and PEG tube placement by surgery team and once cleared she can start tube feeding Otherwise patient remains intubated and sedated with pulmonary/critical care team will help with vent management. She is off sedation when I saw the patient with little response Patient medication included aspirin, amiodarone, ceftriaxone and Protonix, Keppra and heparin drip currently switch to Eliquis when tube feeding starts Review of systems: N/a Active Medications Generic Name Dose Route Start Last Admin Trade Name Freq PRN Reason Stop Dose Admin Hydrocodone Bitart/Acetaminophen 1 each 07/28/20 01:54 08/07/20 16:02 Hydrocodone/Apap 5-325mg 1 Each Tab PO 1 each Q4HR PRN Administration Moderate Pain Albuterol/Ipratropium 3 ml 07/27/20 14:15 Ipratropium-Albuterol 3 Ml Neb INHALATION RT-Q2H PRN Shortness Of Breath Or Wheezing Apixaban 5 mg 08/08/20 09:45 08/08/20 20:04 Apixaban 5 Mg Tab PEG/G-TUBE 5 mg BID INÉS Administration Aspirin 81 mg 08/02/20 09:00 08/08/20 08:51 Aspirin 81 Mg PO 81 mg DAILY INÉS Administration Benzocaine/Menthol 1 each 07/27/20 14:15 Benzocaine/Menthol Lozeng 1 Each Lozenge MUCOUS MEM Q2H PRN Sore Throat Bisacodyl 10 mg 07/28/20 09:00 08/04/20 08:47 Bisacodyl 10 Mg Supp RECTAL 10 mg DAILY PRN Administration Constipation Chlorhexidine Gluconate 15 ml 07/31/20 21:00 08/08/20 20:04 Chlorhexidine Gluconate 15 Ml Cup MUCOUS MEM 15 ml BID INÉS Administration Hydralazine HCl 10 mg 08/07/20 19:44 08/08/20 19:11 Hydralazine Hcl 20 Mg/Ml 1 Ml Vial IVP 10 mg Q6HR PRN Administration Blood Pressure - High Ceftriaxone Sodium 1 gm/ 50 mls @ 100 mls/hr 08/03/20 10:30 08/08/20 08:51 Sodium Chloride IVPB 100 mls/hr Q24HR INÉS Administration Levetiracetam 500 mg/ Sodium 105 mls @ 400 mls/hr 08/06/20 15:00 08/08/20 23:16 Chloride IVPB 400 mls/hr Q12HR@0000,1200 INÉS Administration Sodium Chloride 1,000 mls @ 50 mls/hr 08/08/20 09:00 08/08/20 08:58 Saline 0.45% IV 50 mls/hr .Q20H INÉS Administration Insulin Aspart 0 unit 08/05/20 12:00 08/08/20 23:15 Insulin Aspart (Novolog) 100 Unit/Ml Vial SQ 1 unit Q6HR INÉS Administration Protocol Losartan Potassium 25 mg 08/07/20 21:00 08/08/20 20:05 Losartan 25 Mg Tab PO 25 mg HS INÉS Administration Magnesium Hydroxide 2,400 mg 07/28/20 09:00 Magnesium Hydroxide 2,400 Mg/10 Ml Cup PO BID PRN Constipation Metoclopramide HCl 10 mg 07/27/20 14:15 Metoclopramide 5 Mg/Ml 2 Ml Vial IVP Q4H PRN Nausea And Vomiting Metoprolol Tartrate 100 mg 08/08/20 09:00 08/08/20 20:04 Metoprolol Tartrate 50 Mg Tab PO 100 mg BID INÉS Administration Miscellaneous Information 1 each 07/27/20 14:15 Potassium Replacement Protocol 1 Each Misc MISCELLANE DAILY PRN Per Protocol Protocol Miscellaneous Information 1 each 07/27/20 14:15 Magnesium Replacement Protocol 1 Each Misc MISCELLANE DAILY PRN Per Protocol Protocol Miscellaneous Information 1 each 07/27/20 14:15 Phosphorus Replacement Protoco 1 Each Misc MISCELLANE DAILY PRN Per Protocol Protocol Miscellaneous Information 1 each 08/05/20 04:27 Potassium Replacement Protocol 1 Each Misc MISCELLANE DAILY PRN Per Protocol Protocol Multi-Ingred Cream/Lotion/Oil/Oint 1 applic 08/07/20 16:00 08/08/20 23:15 Artificial Tears Ointment 3.5 Gm Tube BOTH EYES 1 applic Q4H INÉS Administration Ondansetron HCl 4 mg 07/27/20 14:15 Ondansetron 4 Mg/2 Ml Vial IVP Q6HR PRN Nausea And Vomiting Pantoprazole Sodium 40 mg 07/28/20 09:00 08/08/20 08:51 Pantoprazole 40 Mg/10 Ml Vial IVP 40 mg DAILY INÉS Administration Senna/Docusate Sodium 2 each 07/28/20 21:00 08/08/20 20:04 Sennosides-Docusate Sodium 1 Each Tab PO 2 each HS INÉS Administration Sertraline HCl 100 mg 07/21/20 09:00 08/08/20 08:51 Sertraline 100 Mg Tab PO 100 mg DAILY INÉS Administration Sodium Chloride 10 ml 07/27/20 21:00 08/08/20 20:05 Sodium Chloride 0.9% Flush 10 Ml Syringe IV 10 ml BID INÉS Administration Objective - Vital Signs Vital signs: Vital Signs Temp 100.1 F H 08/08/20 09:00 Pulse 113 H 08/08/20 11:00 Resp 24 08/08/20 11:00 BP 137/76 08/08/20 11:00 Pulse Ox 96 08/08/20 11:00 Intake & Output 08/07/20 08/08/20 08/08/20 18:59 06:59 18:59 Intake Total 1579.176 623 645 Output Total 445 545 305 Balance 1134.176 78 340 Weight 92.4 kg Intake: IV 1265 600 200 D5-0.45% NaCl with KCl 60 20Meq/l 1,000 ml @ 60 mls /hr IV .[id number] [facility] Rx#: [id number] Dextrose 5% in Water 1, 1005 600 50 000 ml @ 50 mls/hr IV . Q23H INÉS with Sodium Bicarb (1 Meq/ml) 150 ml Rx#:[id number] cefTRIAXone 1 gm In 100 50 Sodium Chloride 0.9% 50 ml @ 100 mls/hr IVPB Q24HR [facility] Rx#:[id number] levETIRAcetam IV 500 mg 100 100 In Sodium Chloride 0.9% 100 ml @ 400 mls/hr IVPB Q12HR@0000,1200 [facility] Rx#: [id number] Intake, IV Titration 169.176 200 Amount Heparin Sod,Pork in 0.45% 98.167 NaCl 25,000 unit In 0.45 % NaCl 1 250ml.bag @ 10. 823 UNITS/KG/HR 10 mls/hr IV .Q24H [facility] Rx#: [id number] Sodium Chloride 0.45% 1, 200 000 ml @ 50 mls/hr IV . Q20H [facility] Rx#:[id number] propofoL 1,000 mg In 71.009 Empty Bag 1 bag @ Titrate IV .Q0M [facility] Rx#: [id number] Tube Feeding 115 23 115 Other 30 130 Output: Urine 445 545 305 Other: Voiding Method Indwelling Catheter Indwelling Catheter Indwelling Catheter ABP, PAP, CO, CI - Last Documented Arterial Blood Pressure 113/55 Pulmonary Artery Pressure 40/20 Cardiac Output 4.3 Cardiac Index 2.2 - Exam -GENERAL: The patient is intubated and sedated HEENT: Pupils are round and equally reacting to light. EOMI. No scleral icterus. No conjunctival pallor. Normocephalic, atraumatic. No pharyngeal erythema. No thyromegaly. CARDIOVASCULAR: S1 and S2 present. No murmurs, rubs, or gallops. PULMONARY: Chest is clear to auscultation, no wheezing or crackles. ABDOMEN: Soft, nontender, nondistended, normoactive bowel sounds. No palpable organomegaly. MUSCULOSKELETAL: No joint swelling or deformity. EXTREMITIES: No cyanosis, clubbing, or pedal edema. NEUROLOGICAL: Gross neurological examination did not reveal any focal deficits. SKIN: No rashes. no petechiae. - Labs CBC & Chem 7: 08/09/20 04:10 08/09/20 04:10 Labs: Abnormal Lab Results - Last 24 Hours (Table) 08/07/20 08/08/20 08/08/20 Range/Units 17:42 01:11 01:39 WBC (3.8-10.6) k/uL RBC (3.80-5.40) m/uL Hgb (11.4-16.0) gm/dL Hct (34.0-46.0) % Plt Count (150-450) k/uL Neutrophils # (1.3-7.7) k/uL PT (9.0-12.0) sec INR (<1.2) APTT 51.8 H (22.0-30.0) sec ABG pO2 (83-108) mmHg Sodium (137-145) mmol/L BUN (7-17) mg/dL Glucose (74-99) mg/dL POC Glucose (mg/dL) 171 H 149 H (75-99) mg/dL AST (14-36) U/L ALT (4-34) U/L Alkaline Phosphatase (38-126) U/L Albumin (3.5-5.0) g/dL Lipase (23-300) U/L Urine Appearance (Clear) Urine Protein (Negative) Urine Blood (Negative) Urine RBC (0-5) /hpf Urine WBC (0-5) /hpf Amorphous Sediment (None) /hpf Urine Mucus (None) /hpf 08/08/20 08/08/20 08/08/20 Range/Units 04:30 04:30 06:00 WBC 24.6 H (3.8-10.6) k/uL RBC 2.80 L (3.80-5.40) m/uL Hgb 8.4 L (11.4-16.0) gm/dL Hct 25.7 L (34.0-46.0) % Plt Count 594 H (150-450) k/uL Neutrophils # 22.1 H (1.3-7.7) k/uL PT (9.0-12.0) sec INR (<1.2) APTT (22.0-30.0) sec ABG pO2 74 L (83-108) mmHg Sodium 136 L (137-145) mmol/L BUN 33 H (7-17) mg/dL Glucose 146 H (74-99) mg/dL POC Glucose (mg/dL) (75-99) mg/dL AST 2995 H (14-36) U/L ALT 2452 H (4-34) U/L Alkaline Phosphatase 157 H (38-126) U/L Albumin 3.2 L (3.5-5.0) g/dL Lipase (23-300) U/L Urine Appearance (Clear) Urine Protein (Negative) Urine Blood (Negative) Urine RBC (0-5) /hpf Urine WBC (0-5) /hpf Amorphous Sediment (None) /hpf Urine Mucus (None) /hpf 08/08/20 08/08/20 08/08/20 Range/Units 06:35 08:42 08:42 WBC (3.8-10.6) k/uL RBC (3.80-5.40) m/uL Hgb (11.4-16.0) gm/dL Hct (34.0-46.0) % Plt Count (150-450) k/uL Neutrophils # (1.3-7.7) k/uL PT 13.1 H (9.0-12.0) sec INR 1.3 H (<1.2) APTT (22.0-30.0) sec ABG pO2 (83-108) mmHg Sodium (137-145) mmol/L BUN (7-17) mg/dL Glucose (74-99) mg/dL POC Glucose (mg/dL) 149 H (75-99) mg/dL AST (14-36) U/L ALT (4-34) U/L Alkaline Phosphatase (38-126) U/L Albumin (3.5-5.0) g/dL Lipase 450 H (23-300) U/L Urine Appearance (Clear) Urine Protein (Negative) Urine Blood (Negative) Urine RBC (0-5) /hpf Urine WBC (0-5) /hpf Amorphous Sediment (None) /hpf Urine Mucus (None) /hpf 08/08/20 08/08/20 Range/Units 08:42 11:04 WBC (3.8-10.6) k/uL RBC (3.80-5.40) m/uL Hgb (11.4-16.0) gm/dL Hct (34.0-46.0) % Plt Count (150-450) k/uL Neutrophils # (1.3-7.7) k/uL PT (9.0-12.0) sec INR (<1.2) APTT (22.0-30.0) sec ABG pO2 (83-108) mmHg Sodium (137-145) mmol/L BUN (7-17) mg/dL Glucose (74-99) mg/dL POC Glucose (mg/dL) 143 H (75-99) mg/dL AST (14-36) U/L ALT (4-34) U/L Alkaline Phosphatase (38-126) U/L Albumin (3.5-5.0) g/dL Lipase (23-300) U/L Urine Appearance Cloudy H (Clear) Urine Protein 1+ H (Negative) Urine Blood Large H (Negative) Urine RBC 150 H (0-5) /hpf Urine WBC 6 H (0-5) /hpf Amorphous Sediment Rare H (None) /hpf Urine Mucus Rare H (None) /hpf Microbiology - Last 24 Hours (Table) 08/02/20 09:31 Blood Culture - Preliminary Blood No Growth after 120 hours 08/05/20 08:30 Gram Stain - Final Sputum Sputum Culture - Final Klebsiella oxytoca Lali albicans Assessment and Plan Assessment: Triple vessel coronary artery disease, status post bypass surgery on 07/27 Acute bilateral cerebellar ischemic stroke as well as subacute evolving ischemic infarction involving the right MCA/TAZ watershed territory left caudate head ischemic infarction. Weed to be embolic./post surgical, with left hemiparesis Paroxysmal atrial fibrillation.in and out of rapid atrial fibrillation Acute hypoxic respiratory failure needing mechanical ventilation Possible ischemic encephalopathy with toxic encephalopathy Unstable angina secondary to above, currently patient with no chest pain Possible respiratory infection with sputum culture, gram-positive cocci Pulmonary emphysema with fibrotic changes in the right lower lung History of lung cancer status post surgical resection Hypertension Peripheral vascular disease Hyperlipidemia Osteoarthritis Plan: This is a pleasant 75 years old female with triple-vessel coronary artery disease. Cardiothoracic surgery on the case and workup is was done prior to s urgical intervention, pulmonary evaluated the patient preoperatively and she was low risk. Patient was on heparin drip prior to surgery but with cardiology were following case closely. Patient completed by stroke and neurology evaluated the patient and recommended to continue with anticoagulation. On Eliquis and aspirin but Plavix stopped. She is a status post tracheostomy and PEG tube placement Continue with aspirin, statin and metoprolol, continue with Keppra per Neurologist. Several consultants of the case including neurologist, telegraph service clerk, pulmonary/critical care team decides to the cardiothoracic surgical and Gen. surgical teams and she will follow the recommendations Labs and medication were reviewed.. Continue same treatment. Continue with symptomatic treatment. Resume home medication. Monitor lytes and vitals. DVT and GI prophylaxis. Further recommendations as per clinical course of the patient DVT prophylaxis: heparin GI Prophylaxis: Ppi Prognosis is guarded
--- NOTE | 2020-08-09 06:47 | P.PN ---
Subjective Progress Note Date: 08/09/20 Coronary artery disease status post coronary artery bypass grafting Patient was reevaluated today on 07/28/2020, remains intubated and mechanically ventilated. Patient is now on assist control mode of mechanical ventilation with a rate of 16, volume is 450 FiO2 is 50% and PEEP of 5. Unfortunately the p atjuan was noted to have poor movement of her left upper and left lower extremity last night, CT of the head last night showed acute/subacute area of infarction in the right cerebellum along with probable area of chronic infarction in the right parietal region I evaluated the patient this morning, s eems to be extremely restless and agitated, seems to be neglecting the left side, and both eyes are deviated to the right and upwards. Patient seems to be moving her right side quite well, however the left side seems to be relatively weak although she was squeezing my hand with her left hand. And minimal movement noted in the left lower extremity. Patient is on Precedex, and seems to be agitated in spite of Precedex. Her ventilatory settings are reasonable, ABG is reasonable, patient is basically extubate overall, however her mental status is a bit concerning specially with her extreme agitation, keeps pulling and shaking the railing of the bed on the right side. Patient was given Ativan, and I have recommended increasing Precedex. She is not truly quite ready to be extubated today. Again my major concern is her mental status. And she is yet to be seen by neurology on consultation. Blood pressure is quite high, 160 systolic, norepinephrine was discontinued during my evaluation. She was on a very minimal dose of 0.1 mcg/kg/m of norepinephrine patient was also on milrinone. CBC is relatively normal hemoglobin is 7.4. ABG this morning showed a pO2 of 92 pCO2 of 38 pH of 7.45. This was on 50% FiO2. Electrolytes and renal profile are normal. Chest x-ray showed mostly postoperative changes of CABG 07/29/2020, I'm seeing the patient for a follow-up in the intensive care unit. This morning the patient is heavily sedated with propofol and she is calm and comfortable. Unfortunately with that, neurologic examination is not possible. I would suggest gradually cutting down the propofol and assess her neuro status and if needed utilize Precedex as an alternative sedative drip. Meanwhile, the patient remains essentially with enema to severe with a low dose of norep inephrine infusion running at 0.06 mcg/kg per minute. She has an adequate urine output. Cardiac rhythm is sinus. She has a left pleural and mediastinal chest tubes and output from those are in order of minimal, less than 100 over the past 24 hours. The chest x-ray showing cardiomegaly. There is some kyphoscoliosis of the chest. Chest tubes are in good location. ET tube is in good location. Atelectatic changes and some mild four-vessel congestion. Meanwhile, the patient's vent settings include an assist-control mode at the rate of 16 with a tidal volume of 450 and FiO2 of 40% with a PEEP of 5. The blood gases from this morning showed a pH of 7.49 with a pCO2 of 36 and pO2 of 82. On today's blood work, the patient's hemoglobin is down to 6.9 from 7.4. Platelets is at 210. 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 Intracranial cerebral arteries were essentially patent with nothing significantly stenotic. During our limited neurologic evaluation, the patient did not do mistreat any withdrawal with to painful stimulation. No Babinski. No clonus. Nevertheless, I was told by the nursing staff that she was able to move her right side yesterday and her left side once off sedation. Pupils are equal and reactive to light and order of 3 mm. No preferential gaze on today's evaluation. A sedation holiday will be given. She is on enteral nutrition. No other drips. No seizure activity. Neurologist on the case. She is on aspirin, Plavix, and she also on metoprolol 12.5 mg by mouth twice a day. She is also on high-dose statins. Progress note dated 05/29/2021. Currently, this is a 75-year-old female who was admitted to the hospital on July 21. She went to the operating room, on July 27 for a three-vessel bypass grafting with Dr. Alan. The patient has never been extubated. Unfortunately, she developed a right cerebellar CVA. She remains on the mechanical ventilator. She is currently on the volume assist control mode, rate is 16, tidal volume 400, FiO2 60%, and PEEP of 5. The blood gases show a PaO2 of 99, a PaCO2 of 40, and a pH of 7.44. She also remains on lactated Ringer's at 20 mL an hour, propofol was turned off for the spontaneous breathing trial, and she's been weaned off of norepinephrine. She is receiving vital AF, at a rate of 30 mL an hour, with a goal of 57 mL an hour. We placed the patient on pressure support of 5 CPAP of 5, and stayed in the room to observe her response to the spontaneous breathing trial. Unfortunately, the patient's respiratory rate went up above 40, and a tidal volumes dropped down to 200 range. Her m inute volume was quite high, and the patient was placed back on the volume assist control mode. After the failed spontaneous breathing trial, the patient's tidal volume was dropped down to 350, her FiO2 was decreased to 50%, and the peak level was increased from 5 to 8 cm water. White count is 12.8, hemoglobin 8, hematocrit 23.5, and platelet count 210,000. Blood gases have been reviewed. Sodium 139, potassium 3.6, chlorides 107, CO2 27, anion gap 5, BUN 33, and creatinine 0.64. Chest x-ray shows a right lower lobe infiltrate and my opinion. Progress note dated 07/31/2020 75-year-old female, that was admitted to the hospital on July 21. She went to the operating room on July 27 for a three-vessel bypass grafting with Dr. Alan. The patient has never been extubated and unfortunately, she developed a right cerebellar CVA. She currently remains on the ventilator, on the volume assist control modality. She is on a rate of 16, tidal volume 350, FiO2 50%, and a PEEP of 8. Arterial blood gases show a PaO2 of 76, PaCO2 44, and a pH of 7.4. The patient is getting lactated Ringer's at KVO, amiodarone at 0.5 mg/m, and propofol at 30 mcg/kg/m. In addition, the patient's on vital AF 1.2 at 57, with a goal of 57 mL an hour. Today, we attempted a daily interruption of se dation and a spontaneous breathing trial. As noted yesterday, she failed her trial. Today, we placed her on PSV 8, and CPAP of 5. Currently, she is doing a bit better today. A Dobbhoff tube was placed yesterday. Unfortunately, she appears to be weaker on the right side. The left side she does not move at all. In the end, she may end up with the tracheostomy tube and a ET tube. Yesterday, after the spontaneous breathing trial, the patient unfortunately developed atrial fibrillation with RVR, and that is why the patient is on amiodarone. The patient is seen today 08/01/2020 in follow-up in the intensive care unit. She remains intubated on the mechanical ventilator. Current settings assist- control of with a rate of 16, tidal volume 350, FiO2 50% and a PEEP of 8. Morning blood gases reveal a P O2 of 77, pCO2 of 40, pH 7.47. She remains sedated on propofol at 30 mcg/kg/m. Lactated Ringer's at KVO. She developed atrial fibrillation with rapid ventricular response. She is currently on amiodarone at 0.5 mg/m. She is being nourished with vital HP at 20 ML's per hour which is goal. She was given daily interruption of sedation. She develops A. fib RVR during a spontaneous breathing trials yesterday. We'll trial again today. His chest x-ray continues to show stable diffuse pleuroparenchymal changes. Endotracheal tube and gastric tubes are secured in place. Left-sided chest tube has been removed. PICC line in place. She is status post 1 unit of packed red blood cells this admission. Current hemoglobin 7.1. White count 13.6. Sodium 136. Potassium 3.5. Creatinine 0.55. AST 107. ALT 105. Albumin 2.7. She is continued on DuoNeb inhalations. Heparin for DVT prophylaxis. The patient is seen today 08/02/2020 in follow-up in the intensive care unit. She remains intubated and sedated. Currently on mechanical ventilator assist control mode at a rate of 16. Tidal volume 350. FiO2 40%. PEEP of 8. Morning blood gases reveal a P O2 of 100, pCO2 38, pH 7.49. This is on 50% FiO2. She is currently sedated on propofol at 35 mcg/kg/m. She remains on heparin drip. 0.9 normal saline at 20 ML's per hour. She is being nourished with vital HP 20 ML's per hour which is goal. She was given daily interruption of sedation yesterday she became extremely tachypneic with a respiratory rate in the 40s, not following any commands. Placed back on assist control. Trial again today. She has been having issues with atrial fibrillation. Transitioned to oral amiodarone. Chest x-ray reveals left-sided PICC line in place. Endotracheal and gastric tubes are stable. Vertebral column stimulator in place. There are bilateral infiltrates/pleural effusions. Diffusion interstitial pattern. No pneumothorax. She has received 1 unit of packed red blood cells this admission. Current hemoglobin 7.6. Platelets 387. White count 20.6. Sodium 137. Potas sium 3.9. Creatinine 0.50. AST 67. ALT 83. Albumin 2.8. The patient is seen today 08/03/2020 in follow-up in the intensive care unit. Postoperative day #7. She remains intubated and sedated on the mechanical ventilator. Current mode assist control with a rate of 16, tidal been 350, FiO2 40% and a PEEP of 8. Morning blood gases reveal pO2 of 90, pCO2 40, pH 7.49. Currently on propofol at 20 mcg/kg/m. Remains on heparin drip at weight-based protocol. Lactated Ringer's at 20 ML's per hour. She is being nourished with vital HP at 28 ML's per hour which is goal. Free water flushes at 30 MLS every 4 hours. Sputum culture pending. White count 20.5. Hemoglobin 7.7. Sodium 139. Potassium 3.9. Creatinine 0.53. AST 70, ALT 80. She remains on DuoNeb inhalations. Chest x-ray reveals good placement of the endotracheal tube and Dobbhoff tubes. Left sided PICC line in place. Bibasilar densities persist. Perihilar increase attenuation noted within the lungs, left hemidiaphragm remains obscured greater than right. Currently afebrile. Hemodynamically stable. Currently in atrial fibrillation with controlled ventricular rate. She responds to painful stimuli on the right. She did sustain an acute bilateral cerebellar ischemic stroke right greater than left as well as a subacute evolving ischemic infarction including the right MCA/TAZ watershed territory with left-sided hemiplegia. She has not tolerated daily interruption of sedation due to her becoming tachypneic, tachycardic and hypertensive. The patient is seen today 08/04/2020 and follow-up in the intensive care unit. Postoperative day #8. She remains intubated and sedated on mechanical ventilator. Current settings assist-control at a rate of 16, tidal volume 350, FiO2 40%, PEEP of 5. Blood gases reveal a P O2 of 81, pCO2 38, pH 7.51. She remains on propofol at 25 mcg/kg/m. Heparin per weight base protocol. Lactated Ringer's at 20 ML's per hour. She is being nourished with vital HP at 20 mL per hour which is goal. She is spontaneously moving her right arm and right leg. Not following any simple commands. She is status post 1 unit of packed red blood cells this admission. Current hemoglobin 6.9. White count 19.4. Sodium 138. Potassium 3.7. Creatinine 0.71. AST 117, ALT 106. Albumin 2.7. She was given a interruption of sedation and spontaneous breathing trial yesterday. She did develop atrial fibrillation with rapid ventricular response with hypertension, tachypnea. Placed back on mechanical ventilator. We'll trial again today. Plan is for possible tracheostomy and PEG tube placements on 08/06/2020. Chest x-ray continues to show cardiomegaly with mild central venous congestion and left greater than right bibasilar acute infiltrates. Small left pleural effusion. No significant change compared to previous. Sputum culture reveals no growth. Blood culture reveals no growth. She remains on bronchodilators, ceftriaxone. The patient is seen today 08/05/2020 in follow-up in the intensive care unit. Postoperative day #9. She remains intubated, sedated on the mechanical ventilator. Assist-control mode at a rate of 16, tidal been 350, FiO2 40% and a PEEP of 5. Morning blood gases reveal a P O2 of 66, pCO2 38, pH 7.4. She remains on a heparin drip or weight base protocol. Lactated Ringer's at 20 ML's per hour. Propofol at 40 mcg/kg/m. She is being nourished with vital HP at 28 ML's per hour which is goal. Chest x-ray reveals evidence of cardiomegaly with moderate central vascular congestion and left basilar small pleural effusion with associated acute infiltrate and/or atelectasis. A bit worse compared to yesterday. She was given Lasix 20 mg IVP 1. Remains on bronchodilators and on ceftriaxone. Repeat sputum culture pending. Status post 2 units of packed red blood cells this admission. White count 16.6. Hemoglobin 7.6. Sodium 137. Potassium 3.7. Creatinine 0.60. AST 142. ALT 156. Albumin 2.6. Glucose 106. Amiodarone was discontinued due to elevated LFTs. Currently rate-controlled atrial fibrillation. On 08/06/2020 him on seeing the patient for a follow-up in the intensive care unit. This patient is currently postop day number not 10. She had a comfort care postoperative course following her bypass surgeon and the patient had developed a stroke with altered mentation and she never got to a point where she was awake and alert and following commands and as such her extubation process of eating was quite complicated. She was always agitated, restless, not following commands and not following the weaning protocols. As such, the patient was kept sedated and the patient was kept on a mechanical ventilator. She had received daily sedation holidays. She is at the point where she is going to have a PEG and trach today done by general surgery. Meanwhile, the patient is on propofol running at 50 mcg/kg per minute and this morning she is calm and comfortable. She is on assist-control mode at the rate of 60 with a tidal volume of 350 and FiO2 of 40% with a PEEP of 5. The blood gases from today showed a pH of 7.4 With a pCO2 of 40 and pO2 of 71. Hemoglobin is at 7.3 and the patient received a unit of packed RBC on 08/04/2020 and hemoglobin has remained stable since. The patient had some mild disturbance in the liver function tests. Amiodarone has been discontinued. Current cardiac rhythm is sinus. The patient is on no pressors. The patient currently is receiving IV fluids in the form of D5 half-n ormal along with potassium supplements at the rate of 40 mL an hour. Neurologically, she does have a pressure gaze to the right upper quadrant area. Pupils are equal and reactive to light. She withdraws to painful similar ablation 04 extremities. Neurologist on the case. She does have a Dobbhoff and the patient is receiving enteral feeding in the form of vital high protein and currently the tube feeds on hold pending surgery. Blood sugars under adequate control. Urine output is adequate. 08/07/2020, I'm seeing the patient for a follow-up. The patient is postop day #11. The patient remains on a mechanical ventilator. Because of her prolonged arrest 30 failure and altered mental status post CVA, the patient required to have a PEG tube insertion and tracheostomy tube insertion. The procedure was done yesterday and today patient is postop day #1 post tracheostomy tube insertion. She is currently on assist control mode at the rate of 60 without a volume of 350 and FiO2 of 40% with a PEEP of 5. Blood gases showed a pH of 7.29 with a pCO2 of 45 and pO2 of 76. Hematocrit ventilation on the mechanical ventilator is around 8.5. The chest x-ray from today shows adequate positioning of the tracheostomy tube. The patient has a #[address] B[address] in [address] The patient has a left upper extremity PICC line. The patient has some mild pulmonary vascular congestion. There is cardiomegaly. Trace left-sided pleural effusion. No other abnormalities noted. Meanwhile, as the patient was being weaned off the propofol, the patient was at atrial fibrillation with rapid ventricular response around 10 PM. The patient currently is on propofol of 25 mcg/kg per minute. The patient's is being treated with amiodarone drip. She was started with a bolus and following that she is was maintained on 0.5 mg per minute. Her current rate is 118 and still irregular. White cell count is at 21.6 and hemoglobin is at 8.6. Renal function is stable with a creatinine of 0.57, nevertheless, the patient has developed a component of metabolic acidosis with a serum bicarbonate up from 31 down to 20 and the liver function tests remain to be of normal with a bilirubin of 0.7, AST of 80, AST of 124. Her pro- calcitonin from 08/03/2020 was 0.12. IV fluids are running with D5 half-normal saline at the rate of 60 and the patient is nothing by mouth for now. The plan is to start some enteral feeding for nutritional support. In terms of her atrial fibrillation, the patient is on amiodarone drip and she is also on metoprolol 25 mg by mouth 3 times a day. 08/08/2020 I'm seeing the patient for a follow-up on postop day #12. Remains completely unresponsive despite being off sedation for the past 24-48 hours. She is post tracheostomy tube insertion and on today's evaluation the patient's chest x-ray shows no interval change and the patient has adequate positioning of the tracheostomy tube With some small trace bilateral pleural effusion and lung bases and some scattered bilateral pulmonary infiltrates. The patient has grown Klebsiella and Lali in his sputum and the patient remains on IV Rocephin for now. She is afebrile. Her white cell count has gone up to 24. The blood gases from today shows a pH of 7.43 with a pCO2 of 34 and pO2 of 74. After recovering from her atrial fibrillation, earlier this morning while taking a bath, the patient slipped back into A. fib RVR. Her current heart rate is somewhere between 100 and 115. She remains on IV heparin. She is on oral amiodarone at a dose of 200 mg by mouth twice a day and the patient is also on metoprolol 50 mg by mouth twice a day. Morning medication has not been given yet. No seizure activity. No sedatives. Neurologically unresponsive, she may grimace to painful stimulation, yet for the most part, she cannot follow commands and she is not moving any of her extremities upon demand. On today's evaluation, she was noted to have some increased work of breathing. Based on that, I increased her tidal volume to 450 and I put that on the VC plus mode. She seemed 3 much more comfortable an assist-control mode with a tidal volume of 450 and FiO2 of 40% with a PEEP of 5 with an inspiratory time of 0.9. She is receiving enteral feeding via effective and the patient is currently on vital high protein at the rate of 20 mL an hour. She is also on a bicarb drip with a serum bicarb of 27 and she is receiving a total of 250 mg of sodium bicarbonate D5 water at the rate of 50 mL an hour. 08/09/2020 I'm seeing the patient for a follow-up the is postop day #13 following cardiac surgery and active issue for now remains diminished level of consciousness and unresponsiveness. Note that the patient developed a CVA with left-sided weakness based on the CAT scan that was obtained postop. Nevertheless, the patient has not regained consciousness since. For the past 48 hours, she is been off sedation. On today's evaluation I see has grimacing to deep painful stimulation. She would open up her eyes spontaneously. She is still not following any commands. Pupils are equal and reactive to light. No motor function still. Brainstem reflexes are still abnormal liver function tests/shock liver. 2. Will placed on hold. Amylase and lipase were within normal limits. Ammonia level came back at less than 9. Liver function tests are down trending and the patient was taken off the Lipitor and amiodarone. She was also kept nothing by mouth for the past 24 hours. Her chest x-ray from today shows no significant interval change. Tracheostomy tube is in a good location and the patient has a Bivona tracheostomy tube in place and the chest x-ray from today is showing some bilateral pulmonary infiltrates most on the lung bases and possibly small pleural effusions bilaterally. The white cell count is down to 21. The pro-calcitonin level is still pending. The sputum culture was positive for Klebsiella and a repeat culture was obtained and the patient was kept on IV Rocephin. No significant orotracheal secretions. Earlier this morning the patient was on a VC plus mode with a tidal volume of 450 and the rate of 16 with a PEEP of 500 FiO2 of 40%. I switched this patient a spontaneous mode of breathing and currently she is on a pressure support of 5 and a PEEP of 5 and FiO2 of 40% and she is able to generate a tidal volume of 330 with a rate of 21 and a minute ventilation of 7.3. No signs of any respiratory distress. Hemodynamically she is stable on no pressors. She is in a normal sinus/She is on long-term anticoagulation with Eliquis. She is slightly edematous pressure and upper extremity and her net fluid balance over the past 24 hours has been 1 liter is still on half-normal saline today to 50 mL an hour. Objective - Vital Signs Vital signs: Vital Signs Temp 99.9 F H 08/09/20 00:00 Pulse 58 L 08/09/20 06:00 Resp 17 08/09/20 06:00 BP 116/55 08/09/20 06:00 Pulse Ox 98 08/09/20 06:00 Intake & Output 08/08/20 08/08/20 08/09/20 06:59 18:59 06:59 Intake Total 623 1492 1025 Output Total 545 1180 485 Balance 78 312 540 Weight 92.4 kg 92.4 kg 91.9 kg Intake: IV 600 200 650 Dextrose 5% in Water 1, 600 50 000 ml @ 50 mls/hr IV . Q23H [facility] with Sodium Bicarb (1 Meq/ml) 150 ml Rx#:[id number] Sodium Chloride 0.45% 1, 550 000 ml @ 50 mls/hr IV . Q20H [facility] Rx#:[id number] cefTRIAXone 1 gm In 50 Sodium Chloride 0.9% 50 ml @ 100 mls/hr IVPB Q24HR [facility] Rx#:[id number] levETIRAcetam IV 500 mg 100 100 In Sodium Chloride 0.9% 100 ml @ 400 mls/hr IVPB Q12HR@0000,1200 [facility] Rx#: [id number] Intake, IV Titration 600 Amount Sodium Chloride 0.45% 1, 600 000 ml @ 50 mls/hr IV . Q20H [facility] Rx#:[id number] Tube Feeding 23 562 270 Other 130 105 Output: Urine 545 1180 485 Other: Voiding Method Indwelling Catheter Indwelling Catheter Indwelling Catheter # Bowel Movements 1 ABP, PAP, CO, CI - Last Documented Arterial Blood Pressure 113/55 Pulmonary Artery Pressure 40/20 Cardiac Output 4.3 Cardiac Index 2.2 - Exam Intubated, sedated 75-year-old female patient. Sedated on propofol. The patient is not responsive. She may have a sluggish response to deep painful stimulation. She does have no motor function left upper extremity. Currently she has a tracheostomy tube in place which is a #7 Bivona tracheostomy tube. HEENT examination is grossly unremarkable. Mucous membranes are moist. There is a orally placed endotracheal tube, and the patient has a Dobbhoff catheter in place Neck supple. Full range of motion. No adenopathy thyromegaly or neck vein distention. Cardiovascular examination reveals an irregular rhythm and rate. Irregular S1- S2 consistent with atrial fibrillation with rapid ventricular response. Heart rate is around 120, irregular and the patient has his sternum which is intact and dry and clean and well-healed. Lungs reveal bilateral rhonchi. No wheezes or crackles. Breath sounds equal bilaterally., Sternal stable clean and intact and is well-healed Abdominal exam revealed normal bowel sounds. The abdomen was soft, non-tender, and without masses, organomegaly, or appreciable enlargement of the abdominal aorta. The patient has a PEG tube which is in place and exit site is dry clean and intact Extremities are intact. No cyanosis clubbing or edema. Skin is without rash or lesion. Neurologic examination she may grimace to painful stimulation. There may be some facial asymmetry with some left-sided weakness. Pupils are equal and reactive to light. I was unable to elicit any motor response on today's evaluation. Nevertheless, the patient had left-sided weakness. No clonus. Reflexes are diminished. Extremities symmetrical in all 4 extremities. Babinski could not be elicited. Does have a weak cough and a gag. The patient has a weak cough. The patient has a weak gag. She does have positive corneals. Pupils are round 3-4 mm in size and there reactive to light. She may have a preferential gaze looking into the upper visual ugarte. - Labs CBC & Chem 7: 08/09/20 04:10 08/09/20 04:10 Labs: Abnormal Lab Results - Last 24 Hours (Table) 08/08/20 08/08/20 08/08/20 Range/Units 04:30 06:35 08:42 WBC (3.8-10.6) k/uL RBC (3.80-5.40) m/uL Hgb (11.4-16.0) gm/dL Hct (34.0-46.0) % Plt Count (150-450) k/uL Neutrophils # (1.3-7.7) k/uL PT 13.1 H (9.0-12.0) sec INR 1.3 H (<1.2) ABG pH (7.35-7.45) ABG HCO3 (21-25) mmol/L ABG Total CO2 (19-24) mmol/L ABG O2 Saturation (94-97) % BUN (7-17) mg/dL Glucose (74-99) mg/dL POC Glucose (mg/dL) 149 H (75-99) mg/dL Calcium (8.4-10.2) mg/dL AST 2995 H (14-36) U/L ALT 2452 H (4-34) U/L Alkaline Phosphatase (38-126) U/L C-Reactive Protein (<10.0) mg/L Total Protein (6.3-8.2) g/dL Albumin (3.5-5.0) g/dL Lipase (23-300) U/L Urine Appearance (Clear) Urine Protein (Negative) Urine Blood (Negative) Urine RBC (0-5) /hpf Urine WBC (0-5) /hpf Amorphous Sediment (None) /hpf Urine Mucus (None) /hpf 08/08/20 08/08/20 08/08/20 Range/Units 08:42 08:42 11:04 WBC (3.8-10.6) k/uL RBC (3.80-5.40) m/uL Hgb (11.4-16.0) gm/dL Hct (34.0-46.0) % Plt Count (150-450) k/uL Neutrophils # (1.3-7.7) k/uL PT (9.0-12.0) sec INR (<1.2) ABG pH (7.35-7.45) ABG HCO3 (21-25) mmol/L ABG Total CO2 (19-24) mmol/L ABG O2 Saturation (94-97) % BUN (7-17) mg/dL Glucose (74-99) mg/dL POC Glucose (mg/dL) 143 H (75-99) mg/dL Calcium (8.4-10.2) mg/dL AST (14-36) U/L ALT (4-34) U/L Alkaline Phosphatase (38-126) U/L C-Reactive Protein (<10.0) mg/L Total Protein (6.3-8.2) g/dL Albumin (3.5-5.0) g/dL Lipase 450 H (23-300) U/L Urine Appearance Cloudy H (Clear) Urine Protein 1+ H (Negative) Urine Blood Large H (Negative) Urine RBC 150 H (0-5) /hpf Urine WBC 6 H (0-5) /hpf Amorphous Sediment Rare H (None) /hpf Urine Mucus Rare H (None) /hpf 08/08/20 08/08/20 08/08/20 Range/Units 14:04 18:55 23:11 WBC (3.8-10.6) k/uL RBC (3.80-5.40) m/uL Hgb (11.4-16.0) gm/dL Hct (34.0-46.0) % Plt Count (150-450) k/uL Neutrophils # (1.3-7.7) k/uL PT (9.0-12.0) sec INR (<1.2) ABG pH (7.35-7.45) ABG HCO3 (21-25) mmol/L ABG Total CO2 (19-24) mmol/L ABG O2 Saturation (94-97) % BUN 36 H (7-17) mg/dL Glucose 126 H (74-99) mg/dL POC Glucose (mg/dL) 136 H 157 H (75-99) mg/dL Calcium 8.1 L (8.4-10.2) mg/dL AST 2176 H (14-36) U/L ALT 2206 H (4-34) U/L Alkaline Phosphatase 156 H (38-126) U/L C-Reactive Protein (<10.0) mg/L Total Protein 5.6 L (6.3-8.2) g/dL Albumin 3.0 L (3.5-5.0) g/dL Lipase (23-300) U/L Urine Appearance (Clear) Urine Protein (Negative) Urine Blood (Negative) Urine RBC (0-5) /hpf Urine WBC (0-5) /hpf Amorphous Sediment (None) /hpf Urine Mucus (None) /hpf 08/09/20 08/09/20 08/09/20 Range/Units 04:10 04:10 05:24 WBC 21.2 H (3.8-10.6) k/uL RBC 2.69 L (3.80-5.40) m/uL Hgb 7.7 L (11.4-16.0) gm/dL Hct 24.8 L (34.0-46.0) % Plt Count 643 H (150-450) k/uL Neutrophils # 18.7 H (1.3-7.7) k/uL PT (9.0-12.0) sec INR (<1.2) ABG pH (7.35-7.45) ABG HCO3 (21-25) mmol/L ABG Total CO2 (19-24) mmol/L ABG O2 Saturation (94-97) % BUN 41 H (7-17) mg/dL Glucose 117 H (74-99) mg/dL POC Glucose (mg/dL) 117 H (75-99) mg/dL Calcium 8.0 L (8.4-10.2) mg/dL AST 1417 H (14-36) U/L ALT 1775 H (4-34) U/L Alkaline Phosphatase 138 H (38-126) U/L C-Reactive Protein 82.8 H (<10.0) mg/L Total Protein 5.2 L (6.3-8.2) g/dL Albumin 2.7 L (3.5-5.0) g/dL Lipase (23-300) U/L Urine Appearance (Clear) Urine Protein (Negative) Urine Blood (Negative) Urine RBC (0-5) /hpf Urine WBC (0-5) /hpf Amorphous Sediment (None) /hpf Urine Mucus (None) /hpf 08/09/20 Range/Units 05:26 WBC (3.8-10.6) k/uL RBC (3.80-5.40) m/uL Hgb (11.4-16.0) gm/dL Hct (34.0-46.0) % Plt Count (150-450) k/uL Neutrophils # (1.3-7.7) k/uL PT (9.0-12.0) sec INR (<1.2) ABG pH 7.46 H (7.35-7.45) ABG HCO3 27 H (21-25) mmol/L ABG Total CO2 28 H (19-24) mmol/L ABG O2 Saturation 98.4 H (94-97) % BUN (7-17) mg/dL Glucose (74-99) mg/dL POC Glucose (mg/dL) (75-99) mg/dL Calcium (8.4-10.2) mg/dL AST (14-36) U/L ALT (4-34) U/L Alkaline Phosphatase (38-126) U/L C-Reactive Protein (<10.0) mg/L Total Protein (6.3-8.2) g/dL Albumin (3.5-5.0) g/dL Lipase (23-300) U/L Urine Appearance (Clear) Urine Protein (Negative) Urine Blood (Negative) Urine RBC (0-5) /hpf Urine WBC (0-5) /hpf Amorphous Sediment (None) /hpf Urine Mucus (None) /hpf Microbiology - Last 24 Hours (Table) 08/08/20 20:14 Sputum Culture - Preliminary Sputum 08/02/20 09:31 Blood Culture - Final Blood No Growth after 144 hours Assessment and Plan Plan: 1 Status post three-vessel bypass grafting. The patient is postop day #13. The patient remains intubated on mechanical ventilator. This was a post operative course was quite complicated and the patient a neurologic event with left-sided weakness and right sided/study bilateral acute/subacute CVA. The patient had a tracheostomy tube inserted yesterday the patient is postop day #3 post t racheostomy tube insertion and a PEG tube insertion. The patient remains unresponsive on today's evaluation. Nevertheless, she is somewhat grimacing to painful stimulation pH is not following any commands. brainstem reflexes are present.. 2 acute hypoxemic respiratory failure and remains on the ventilator because of her recent ischemic CVA. Patient had prolonged respiratory failure due to po stop CVA and the patient has a tracheostomy placed yesterday for ongoing respiratory support. Chest x-ray still showing bilateral pulmonary infiltrates and small effusion on the left. Sputum was positive for Klebsiella and the patient is still covered with IV Rocephin. Pro-calcitonin level was nonelevated and the patient is afebrile white cell count is 21 3 Postoperative acute/subacute right cerebellar infarct, complicated further by a lleft-sided hemiparesis. Suspected brainstem infarct in combination with a cerebellar infarct causing altered mentation and diminished level of consciousn ess. 4 Leukocytosis of unclear etiology, white cell count is at 21 5 Remote history of non-small cell lung cancer, with previous lobectomy. 6 Prior history of tobacco use. 7 Mild COPD based on PFTs. 8 Family history of premature coronary artery disease. 9 History of hypertension. 10 Peripheral vascular occlusive disease. 11 Degenerative joint disease. 12 Hyperlipidemia. 13 Chronic insomnia. 14 History of postoperative anemia. 15 metabolic acidosis, improved with bicarb infusion 16 paroxysmal atrial fibrillation with rapid ventricular response , back to normal sinus rhythm and the patient was started on long-term anticoagulation with Eliquis. The patient is currently off amiodarone and the patient is receiving metoprolol at a dose of 100 mg by mouth twice a day. 17 shock liver with abnormal LFTs, ultrasound the liver is pending for now LFTs are down trending Plan: Give the patient spontaneous breathing trial with a pressure support of 5 and a PEEP of 5. This which was done this morning and the patient is quite comfortable and will allow splitting his breathing as long as the patient is able to tolerate Awaiting the results of the repeat sputum sample Continue IV Rocephin Restart to proceed with a low rate of 10 mL an hour Hold Lipitor and amiodarone Continue metoprolol 100 mg by mouth twice daily in combination with Eliquis Monitor mental status Ultrasound the liver today Monitor neurologic exam We will continue to follow and make further recommendations based on her clinical status Critical care evaluation, done more than 30 minutes. Time with Patient: Greater than 30
[2020-08-09] MEDS: CHLORHEXIDINE GLUCONATE 15 ML CUP MUCOUS MEM SCH ×2 (08:36→20:23)
[2020-08-09] MEDS: APIXABAN 5 MG TAB PEG/G-TUBE SCH ×2 (08:36→20:24)
[2020-08-09] MEDS: ASPIRIN 81 MG PO SCH (08:36)
[2020-08-09] MEDS: SERTRALINE 100 MG TAB PO SCH (08:36)
[2020-08-09] MEDS: PANTOPRAZOLE 40 MG/10 ML VIAL IVP SCH (08:36)
[2020-08-09] MEDS: METOPROLOL TARTRATE 50 MG TAB PO SCH ×2 (08:36→20:24)
--- NOTE | 2020-08-09 08:42 | P.PN ---
Subjective HPI: This is a 75-year-old female past medical history significant for coronary artery disease with previous myocardial infarction and stent placement, peripheral artery disease with lower extremity stenting, lung cancer s/p right lower lobectomy in 2011, hypertension, hyperlipidemia, COPD with previous tobacco dependence quit in 2011. Presented with NSTEMI. She presented to the emergency department at [facility] with complaints of midsternal chest discomfort radiating to her back and down bilateral arms, transferred to [facility]. On 07/22- Patient underwent cardiac catheterization and found to have severe triple-vessel coronary artery disease with significant disease in the proximal LAD, mid LAD, obtuse marginal branch and the right coronary artery in the long segment. Echo revealed normal left ventricular systolic function EF 50-55% with mild aortic stenosis. She underwent coronary artery bypass grafting x 3 vessels, ligation of the left atrial appendage on 07/27. Post-operatively, 07/28, while patient being weaned off sedation, patient was found to have left-sided weakness, deviation of the head to the right side, was not following commands. CT brain revealed acute/subacute ischemic infarction the right cerebellum. Patient is seen and examined this morning around 0815. Patient underwent tracheostomy and PEG tube placement 08/06/20. Overnight, she went into atrial fibrillation with RVR 10 PM. Patient was started on amiodarone drip, started with a bolus and following that she was maintained on 0.5 mg/min. She is on mechanical ventilation and sedated on propofol drip. She is not following any verbal commands. Vent setting AC tidal volume 400 FiO2 40% and PEEP of 5. Laboratory data reviewed, WBC 21.4, Hgb 8.6, Plt 739, Na 137, K 5.3, sCr 0.57, AST 80, ALT 124, Alk Phos 181. 08/08/2020: Patient seen and examined. Attempted to wean sedation and patient able to open eyes however no meaningful movements or interaction. Liver enzymes have been increasing with AST 2995 and ALT 2452, severely elevated from previous 80 and 120. Alk phos 157, total bilirubin 0.8. Amiodarone was discontinued. Heart rates predominantly 100s to 115 in A. fib. White blood cell count remains elevated at 24, hemoglobin 8.4. Increase metoprolol from 50-100 today. 08/09/2020 Patient seen and examined. Patient undergoing spontaneous breathing trial this morning. Remains unresponsive without any response to verbal or noxious stimuli. AST and ALT are somewhat improved at 1417 100 today. CRP noted to be very elevated at 82 and white blood cell count remains elevated at 21. Abdominal ultrasound was performed this morning however pending results. Amiodarone was discontinued yesterday and metoprolol was increased yesterday to 100 mg twice a day. Patient converted to normal sinus rhythm yesterday at around midnight. PHYSICAL EXAMINATION HEENT: Mucous membranes moist CHEST EXAMINATION: Bilateral rhonchi, no wheezes or crackles. Breath sounds are equal bilaterally HEART EXAMINATION: Rate and rhythm regular, S1, S2 heard. No murmurs, gallops or rub. Inscision clean dry intact ABDOMEN: Soft, Positive bowel sounds. EXTREMITIES: 2+ peripheral pulses, 2+ pitting edema, LUE PICC SKIN: No rashes NEUROLOGIC: Facial asymmetry, left sided weakness. Pupils are equal. Unable to elicit a motor response. Not following commands. ASSESSMENT NSTEMI, s/p three vessel CABG Respiratory failure, requiring tracheostomy and PEG tube placement Cerebrovascular accident post-operatively after CABG Paroxysmal atrial fibrillation after CABG, currently normal sinus rhythm History of coronary artery disease with previous myocardial infarction and stent placement Peripheral artery disease with lower extremity stenting History of Hypertension Hyperlipidemia History of lung cancer Acute liver injury PLAN -Amiodarone was discontinued secondary to acute liver injury, GI recommendations appreciated, ultrasound pending. -Transitioned to oral anticoagulation -Continue Aspirin and Statin -Continue to monitor patient's neurologic status, supportive care. Prognosis is guarded. -The patient remains in sinus rhythm and continue with increased dose of Lopressor 100 mg twice a day. Objective - Vital Signs Vital signs: Vital Signs Temp 99.9 F H 08/09/20 00:00 Pulse 84 08/09/20 07:00 Resp 25 H 08/09/20 07:00 BP 119/53 08/09/20 07:00 Pulse Ox 96 08/09/20 07:00 Intake & Output 08/08/20 08/09/20 08/09/20 18:59 06:59 18:59 Intake Total 1492 1025 50 Output Total 1180 485 95 Balance 312 540 -45 Weight 92.4 kg 91.9 kg Intake: IV 200 650 50 Dextrose 5% in Water 1, 50 000 ml @ 50 mls/hr IV . Q23H INÉS with Sodium Bicarb (1 Meq/ml) 150 ml Rx#:[id number] Sodium Chloride 0.45% 1, 550 50 000 ml @ 50 mls/hr IV . Q20H INÉS Rx#:[id number] cefTRIAXone 1 gm In 50 Sodium Chloride 0.9% 50 ml @ 100 mls/hr IVPB Q24HR INÉS Rx#:[id number] levETIRAcetam IV 500 mg 100 100 In Sodium Chloride 0.9% 100 ml @ 400 mls/hr IVPB Q12HR@0000,1200 INÉS Rx#: [id number] Intake, IV Titration 600 Amount Sodium Chloride 0.45% 1, 600 000 ml @ 50 mls/hr IV . Q20H INÉS Rx#:[id number] Tube Feeding 562 270 Other 130 105 Output: Urine 1180 485 95 Other: Voiding Method Indwelling Catheter Indwelling Catheter # Bowel Movements 1 ABP, PAP, CO, CI - Last Documented Arterial Blood Pressure 113/55 Pulmonary Artery Pressure 40/20 Cardiac Output 4.3 Cardiac Index 2.2 - Labs CBC & Chem 7: 08/09/20 04:10 08/09/20 04:10 Labs: Abnormal Lab Results - Last 24 Hours (Table) 08/08/20 08/08/20 08/08/20 Range/Units 08:42 08:42 08:42 WBC (3.8-10.6) k/uL RBC (3.80-5.40) m/uL Hgb (11.4-16.0) gm/dL Hct (34.0-46.0) % Plt Count (150-450) k/uL Neutrophils # (1.3-7.7) k/uL PT 13.1 H (9.0-12.0) sec INR 1.3 H (<1.2) ABG pH (7.35-7.45) ABG HCO3 (21-25) mmol/L ABG Total CO2 (19-24) mmol/L ABG O2 Saturation (94-97) % BUN (7-17) mg/dL Glucose (74-99) mg/dL POC Glucose (mg/dL) (75-99) mg/dL Calcium (8.4-10.2) mg/dL AST (14-36) U/L ALT (4-34) U/L Alkaline Phosphatase (38-126) U/L C-Reactive Protein (<10.0) mg/L Total Protein (6.3-8.2) g/dL Albumin (3.5-5.0) g/dL Lipase 450 H (23-300) U/L Urine Appearance Cloudy H (Clear) Urine Protein 1+ H (Negative) Urine Blood Large H (Negative) Urine RBC 150 H (0-5) /hpf Urine WBC 6 H (0-5) /hpf Amorphous Sediment Rare H (None) /hpf Urine Mucus Rare H (None) /hpf 08/08/20 08/08/20 08/08/20 Range/Units 11:04 14:04 18:55 WBC (3.8-10.6) k/uL RBC (3.80-5.40) m/uL Hgb (11.4-16.0) gm/dL Hct (34.0-46.0) % Plt Count (150-450) k/uL Neutrophils # (1.3-7.7) k/uL PT (9.0-12.0) sec INR (<1.2) ABG pH (7.35-7.45) ABG HCO3 (21-25) mmol/L ABG Total CO2 (19-24) mmol/L ABG O2 Saturation (94-97) % BUN 36 H (7-17) mg/dL Glucose 126 H (74-99) mg/dL POC Glucose (mg/dL) 143 H 136 H (75-99) mg/dL Calcium 8.1 L (8.4-10.2) mg/dL AST 2176 H (14-36) U/L ALT 2206 H (4-34) U/L Alkaline Phosphatase 156 H (38-126) U/L C-Reactive Protein (<10.0) mg/L Total Protein 5.6 L (6.3-8.2) g/dL Albumin 3.0 L (3.5-5.0) g/dL Lipase (23-300) U/L Urine Appearance (Clear) Urine Protein (Negative) Urine Blood (Negative) Urine RBC (0-5) /hpf Urine WBC (0-5) /hpf Amorphous Sediment (None) /hpf Urine Mucus (None) /hpf 03/03/21 03/04/21 03/04/21 Range/Units 23:11 04:10 04:10 WBC 21.2 H (3.8-10.6) k/uL RBC 2.69 L (3.80-5.40) m/uL Hgb 7.7 L (11.4-16.0) gm/dL Hct 24.8 L (34.0-46.0) % Plt Count 643 H (150-450) k/uL Neutrophils # 18.7 H (1.3-7.7) k/uL PT (9.0-12.0) sec INR (<1.2) ABG pH (7.35-7.45) ABG HCO3 (21-25) mmol/L ABG Total CO2 (19-24) mmol/L ABG O2 Saturation (94-97) % BUN 41 H (7-17) mg/dL Glucose 117 H (74-99) mg/dL POC Glucose (mg/dL) 157 H (75-99) mg/dL Calcium 8.0 L (8.4-10.2) mg/dL AST 1417 H (14-36) U/L ALT 1775 H (4-34) U/L Alkaline Phosphatase 138 H (38-126) U/L C-Reactive Protein 82.8 H (<10.0) mg/L Total Protein 5.2 L (6.3-8.2) g/dL Albumin 2.7 L (3.5-5.0) g/dL Lipase (23-300) U/L Urine Appearance (Clear) Urine Protein (Negative) Urine Blood (Negative) Urine RBC (0-5) /hpf Urine WBC (0-5) /hpf Amorphous Sediment (None) /hpf Urine Mucus (None) /hpf 08/09/20 08/09/20 Range/Units 05:24 05:26 WBC (3.8-10.6) k/uL RBC (3.80-5.40) m/uL Hgb (11.4-16.0) gm/dL Hct (34.0-46.0) % Plt Count (150-450) k/uL Neutrophils # (1.3-7.7) k/uL PT (9.0-12.0) sec INR (<1.2) ABG pH 7.46 H (7.35-7.45) ABG HCO3 27 H (21-25) mmol/L ABG Total CO2 28 H (19-24) mmol/L ABG O2 Saturation 98.4 H (94-97) % BUN (7-17) mg/dL Glucose (74-99) mg/dL POC Glucose (mg/dL) 117 H (75-99) mg/dL Calcium (8.4-10.2) mg/dL AST (14-36) U/L ALT (4-34) U/L Alkaline Phosphatase (38-126) U/L C-Reactive Protein (<10.0) mg/L Total Protein (6.3-8.2) g/dL Albumin (3.5-5.0) g/dL Lipase (23-300) U/L Urine Appearance (Clear) Urine Protein (Negative) Urine Blood (Negative) Urine RBC (0-5) /hpf Urine WBC (0-5) /hpf Amorphous Sediment (None) /hpf Urine Mucus (None) /hpf Microbiology - Last 24 Hours (Table) 08/08/20 11:05 Blood Culture - Final Blood 08/08/20 20:14 Sputum Culture - Preliminary Sputum 08/02/20 09:31 Blood Culture - Final Blood No Growth after 144 hours
[2020-08-09] MEDS ORDERED: VANCOMYCIN IV PER PHARMACY 1 EACH MISC MISCELLANE PRN (08:54)
--- NOTE | 2020-08-09 09:03 | P.PN ---
Subjective Progress Note Date: 08/09/20 Principal diagnosis: elevated LFTs This 75-year-old female who presented to the hospital with chest pain, underwent a cardiac catheterization which showed three-vessel disease. Patient then underwent a CABG on 07/27/20.yesterday was noted to have significant increase in her transaminases, likely medication induced. Lipitor and amiodarone had been discontinued. Liver enzymes are trending down today. No acute changes with patient overnight. Ultrasound of the abdomen ordered and pending. Objective - Vital Signs Vital signs: Vital Signs Temp 99.9 F H 08/09/20 00:00 Pulse 84 08/09/20 07:00 Resp 25 H 08/09/20 07:00 BP 119/53 08/09/20 07:00 Pulse Ox 96 08/09/20 07:00 Intake & Output 08/08/20 08/09/20 08/09/20 18:59 06:59 18:59 Intake Total 1492 1025 50 Output Total 1180 485 95 Balance 312 540 -45 Weight 92.4 kg 91.9 kg Intake: IV 200 650 50 Dextrose 5% in Water 1, 50 000 ml @ 50 mls/hr IV . Q23H [facility] with Sodium Bicarb (1 Meq/ml) 150 ml Rx#:[id number] Sodium Chloride 0.45% 1, 550 50 000 ml @ 50 mls/hr IV . Q20H [facility] Rx#:[id number] cefTRIAXone 1 gm In 50 Sodium Chloride 0.9% 50 ml @ 100 mls/hr IVPB Q24HR [facility] Rx#:[id number] levETIRAcetam IV 500 mg 100 100 In Sodium Chloride 0.9% 100 ml @ 400 mls/hr IVPB Q12HR@0000,1200 [facility] Rx#: [id number] Intake, IV Titration 600 Amount Sodium Chloride 0.45% 1, 600 000 ml @ 50 mls/hr IV . Q20H [facility] Rx#:[id number] Tube Feeding 562 270 Other 130 105 Output: Urine 1180 485 95 Other: Voiding Method Indwelling Catheter Indwelling Catheter # Bowel Movements 1 ABP, PAP, CO, CI - Last Documented Arterial Blood Pressure 113/55 Pulmonary Artery Pressure 40/20 Cardiac Output 4.3 Cardiac Index 2.2 - Exam General appearance: The patient isnonresponsive. Has tracheostomy HET: Head is normocephalic and atraumatic. Upstroke deviated gaze to the right. Neck: Supple without lymphadenopathy. Trachea midline. Heart: S1 S2. Regular rate and rhythm. Lungs: No crackles or wheezes are heard. Mechanical ventilation Abdomen: Soft, obese, nontender, nondistended. Extremities: Bilateral lower extremities with edema with compression stockings. Neurological: Nonverbal, unable to follow commands. - Labs CBC & Chem 7: 08/09/20 04:10 08/09/20 04:10 Labs: Abnormal Lab Results - Last 24 Hours (Table) 08/08/20 08/08/20 08/08/20 Range/Units 08:42 08:42 08:42 WBC (3.8-10.6) k/uL RBC (3.80-5.40) m/uL Hgb (11.4-16.0) gm/dL Hct (34.0-46.0) % Plt Count (150-450) k/uL Neutrophils # (1.3-7.7) k/uL PT 13.1 H (9.0-12.0) sec INR 1.3 H (<1.2) ABG pH (7.35-7.45) ABG HCO3 (21-25) mmol/L ABG Total CO2 (19-24) mmol/L ABG O2 Saturation (94-97) % BUN (7-17) mg/dL Glucose (74-99) mg/dL POC Glucose (mg/dL) (75-99) mg/dL Calcium (8.4-10.2) mg/dL AST (14-36) U/L ALT (4-34) U/L Alkaline Phosphatase (38-126) U/L C-Reactive Protein (<10.0) mg/L Total Protein (6.3-8.2) g/dL Albumin (3.5-5.0) g/dL Lipase 450 H (23-300) U/L Urine Appearance Cloudy H (Clear) Urine Protein 1+ H (Negative) Urine Blood Large H (Negative) Urine RBC 150 H (0-5) /hpf Urine WBC 6 H (0-5) /hpf Amorphous Sediment Rare H (None) /hpf Urine Mucus Rare H (None) /hpf 08/08/20 08/08/20 08/08/20 Range/Units 11:04 14:04 18:55 WBC (3.8-10.6) k/uL RBC (3.80-5.40) m/uL Hgb (11.4-16.0) gm/dL Hct (34.0-46.0) % Plt Count (150-450) k/uL Neutrophils # (1.3-7.7) k/uL PT (9.0-12.0) sec INR (<1.2) ABG pH (7.35-7.45) ABG HCO3 (21-25) mmol/L ABG Total CO2 (19-24) mmol/L ABG O2 Saturation (94-97) % BUN 36 H (7-17) mg/dL Glucose 126 H (74-99) mg/dL POC Glucose (mg/dL) 143 H 136 H (75-99) mg/dL Calcium 8.1 L (8.4-10.2) mg/dL AST 2176 H (14-36) U/L ALT 2206 H (4-34) U/L Alkaline Phosphatase 156 H (38-126) U/L C-Reactive Protein (<10.0) mg/L Total Protein 5.6 L (6.3-8.2) g/dL Albumin 3.0 L (3.5-5.0) g/dL Lipase (23-300) U/L Urine Appearance (Clear) Urine Protein (Negative) Urine Blood (Negative) Urine RBC (0-5) /hpf Urine WBC (0-5) /hpf Amorphous Sediment (None) /hpf Urine Mucus (None) /hpf 08/08/20 08/09/20 08/09/20 Range/Units 23:11 04:10 04:10 WBC 21.2 H (3.8-10.6) k/uL RBC 2.69 L (3.80-5.40) m/uL Hgb 7.7 L (11.4-16.0) gm/dL Hct 24.8 L (34.0-46.0) % Plt Count 643 H (150-450) k/uL Neutrophils # 18.7 H (1.3-7.7) k/uL PT (9.0-12.0) sec INR (<1.2) ABG pH (7.35-7.45) ABG HCO3 (21-25) mmol/L ABG Total CO2 (19-24) mmol/L ABG O2 Saturation (94-97) % BUN 41 H (7-17) mg/dL Glucose 117 H (74-99) mg/dL POC Glucose (mg/dL) 157 H (75-99) mg/dL Calcium 8.0 L (8.4-10.2) mg/dL AST 1417 H (14-36) U/L ALT 1775 H (4-34) U/L Alkaline Phosphatase 138 H (38-126) U/L C-Reactive Protein 82.8 H (<10.0) mg/L Total Protein 5.2 L (6.3-8.2) g/dL Albumin 2.7 L (3.5-5.0) g/dL Lipase (23-300) U/L Urine Appearance (Clear) Urine Protein (Negative) Urine Blood (Negative) Urine RBC (0-5) /hpf Urine WBC (0-5) /hpf Amorphous Sediment (None) /hpf Urine Mucus (None) /hpf 08/09/20 08/09/20 Range/Units 05:24 05:26 WBC (3.8-10.6) k/uL RBC (3.80-5.40) m/uL Hgb (11.4-16.0) gm/dL Hct (34.0-46.0) % Plt Count (150-450) k/uL Neutrophils # (1.3-7.7) k/uL PT (9.0-12.0) sec INR (<1.2) ABG pH 7.46 H (7.35-7.45) ABG HCO3 27 H (21-25) mmol/L ABG Total CO2 28 H (19-24) mmol/L ABG O2 Saturation 98.4 H (94-97) % BUN (7-17) mg/dL Glucose (74-99) mg/dL POC Glucose (mg/dL) 117 H (75-99) mg/dL Calcium (8.4-10.2) mg/dL AST (14-36) U/L ALT (4-34) U/L Alkaline Phosphatase (38-126) U/L C-Reactive Protein (<10.0) mg/L Total Protein (6.3-8.2) g/dL Albumin (3.5-5.0) g/dL Lipase (23-300) U/L Urine Appearance (Clear) Urine Protein (Negative) Urine Blood (Negative) Urine RBC (0-5) /hpf Urine WBC (0-5) /hpf Amorphous Sediment (None) /hpf Urine Mucus (None) /hpf Microbiology - Last 24 Hours (Table) 08/08/20 20:14 Gram Stain - Preliminary Sputum Sputum Culture - Preliminary 08/08/20 11:05 Blood Culture - Final Blood 08/02/20 09:31 Blood Culture - Final Blood No Growth after 144 hours Assessment and Plan (1) Elevated LFTs Narrative/Plan: The lady who was admitted to the hospital on 07/21/2020 with gradual elevation in her serum transaminases for the last 2 weeks duration. There was significant elevation noted yesterday in her serum transaminases, with no prior history of chronic liver disease. Her liver enzymes were normal at the time of admission, which makes it very likely dealing with a medication-induced hepatitis. The entire list of medications that the patient has receded from the time of coronary artery bypass surgery until now appears that the likely cause would be either amiodarone, statins or antibiotics. The amiodarone and statins have been discontinued yesterday. She continues to remain on ceftriaxone. There've been no documented evidence of hypo-tension to consider ischemic hepatitis. Viral hepatitis studies were ordered and negative for A, B, and C. Abdominal ultrasound reviewed, no acute findings. Arm transaminases are trending down. Current Visit: Yes Status: Acute Code(s): R79.89 - OTHER SPECIFIED ABNORMAL FINDINGS OF BLOOD CHEMISTRY SNOMED Code(s): 852921800 Plan: 1. Supportive care 2. Daily CMP 3. Continue to hold statin and amiodarone 4. Avoid hepatotoxic agents 5. Hepatitis panel ordered and reviewed, negative 3 6. Abdominal ultrasound ordered Thank you for this consultation, we will continue to follow Dr. Gilberto Arriaga I agree with the dictator's note, documented as a scribe by Mariza White.
[2020-08-09] MEDS ORDERED: VANCOMYCIN 1,500 MG in SODIUM CHLORIDE 0.9% 250 ML IVPB SCH (09:30)
[2020-08-09] MEDS ORDERED: VANCOMYCIN 1,750 MG in SODIUM CHLORIDE 0.9% 500 ML 500 ML IVPB ONE (10:00)
--- NOTE | 2020-08-09 10:23 | XR ---
EXAMINATION TYPE: XR chest 1V portable DATE OF EXAM: 08/09/2020 COMPARISON: Chest x-ray 08/08/2020 HISTORY: Postop coronary bypass graft TECHNIQUE: Single frontal view of the chest is obtained. FINDINGS: Tracheostomy tube is overlying the tracheal air column, patient is post median sternotomy, left atrial appendage clip placement. Thoracic cord stimulator and left-sided PICC line are stable. Pleural-parenchymal changes are similar to prior exam. There is no evident pneumothorax. IMPRESSION: No significant interval change compared to prior exam. Correlate for pneumonia, edema, A RDS.
--- NOTE | 2020-08-09 10:55 | P.PN ---
Subjective Progress Note Date: 08/09/20 Principal diagnosis: Triple-vessel coronary artery disease, unstable angina. Past medical history significant for coronary artery disease with previous myocardial infarction and stent placement, peripheral arterial disease with lower extremity stenting, lung cancer status post right lower lobectomy in 2011, hypertension, hyperlipidemia, COPD with previous tobacco dependence, anxiety/depression, family history of premature coronary artery disease with 2 of her sons having had coronary artery bypass grafting surgery, significant plaque formation more than 75% stenosis at the origins of both internal and external carotid arteries bilaterally on CTA. POD #13 coronary artery bypass grafting 3 vessels, left internal mammary artery to the left anterior descending artery, a reverse greater saphenous vein graft to the obtuse marginal artery, a reverse greater saphenous vein graft to the posterior descending artery, endoscopic harvesting of the right greater saphenous vein, ligation of the left atrial appendage using a 35 mm AtriClip, epi-aortic ultrasound and intraoperative transesophageal echocardiogram. POD #2 tracheostomy tube placement #[address] Alan. POD #2 EGD with her cutaneous endoscopic gastrostomy tube placement by Dr. Chavarria. Postoperative acute blood loss anemia, expected given hemodilution and cardiopulmonary bypass pump. Postoperative right acute/subacute cerebellar infarct on brain CT, unexpected, although possible complication of any open heart surgery, especially given patient's known history of significant arterial disease. Prolonged mechanical ventilation, unexpected, secondary to acute stroke. Paroxysmal atrial fibrillation, known common occurrence after open heart surgery. The patient was seen in follow-up today 08/09/2020 at her bedside in the intensive care unit. The patient has been off sedation now for almost 48 hours and remains unresponsive except to painful stimuli. The patient does grimace and withdrawal from painful stimuli. Tracheostomy tube remains benign in in place with mechanical ventilator support. Current mechanical ventilator settings are assist control 16, VC +450/0.80, FiO2 40% and a PEEP of 5. Dr. Roger for pulmonary/critical care medicine placed the patient on a weaning trial of CPAP 5, pressure support 5 and FiO2 40%. T-max temperature in the last 24 hours 99.9F. She remains on Rocephin for antibiotic coverage for a sputum culture positive on 08/05/2020 for Klebsiella oxytoca. Preliminary blood culture results from yesterday 08/08/2020 shows gram-positive cocci in clusters, and her preliminary result from her sputum culture from yesterday shows few Gram-positive cocci. Abdominal ultrasound was completed this morning for her elevated liver enzymes with the results still pending. Her nurse from right shift reports that the patient had a small emesis during the night with tube feedings on hold after midnight. Laboratory results morning show a WBC count 21.2, hemoglobin 7.7, hematocrit 24.8, platelets 643, BUN 41, creatinine 0.66, AST and ALT are trending down with her AST this morning 1417 and her ALT 1775. Amiodarone and Lipitor remain on hold. Bedside telemetry currently showing normal sinus rhythm heart rate 85 BPM. 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 Ammonia level from yesterday was less than 9, lactic acid level was 1.3 and C-reactive protein from this morning was 82.8. The patient remained hemodynamically stable and is currently on no inotropic or pressor support. Half normal saline infusing at 50 mL per hour. Heparin drip was discontinued yesterday and she is currently on Eliquis 5 mg per PEG tube twice a day for anticoagulation. Objective - Vital Signs Vital signs: Vital Signs Temp 99.3 F 08/09/20 08:00 Pulse 62 08/09/20 09:00 Resp 19 08/09/20 09:00 BP 93/44 08/09/20 09:00 Pulse Ox 95 08/09/20 09:00 Intake & Output 08/08/20 08/09/20 08/09/20 18:59 06:59 18:59 Intake Total 1492 1025 150 Output Total 1180 485 170 Balance 312 540 -20 Weight 92.4 kg 91.9 kg Intake: IV 200 650 150 Dextrose 5% in Water 1, 50 000 ml @ 50 mls/hr IV . Q23H [facility] with Sodium Bicarb (1 Meq/ml) 150 ml Rx#:[id number] Sodium Chloride 0.45% 1, 550 150 000 ml @ 50 mls/hr IV . Q20H [facility] Rx#:[id number] cefTRIAXone 1 gm In 50 Sodium Chloride 0.9% 50 ml @ 100 mls/hr IVPB Q24HR [facility] Rx#:[id number] levETIRAcetam IV 500 mg 100 100 In Sodium Chloride 0.9% 100 ml @ 400 mls/hr IVPB Q12HR@0000,1200 [facility] Rx#: [id number] Intake, IV Titration 600 Amount Sodium Chloride 0.45% 1, 600 000 ml @ 50 mls/hr IV . Q20H [facility] Rx#:[id number] Tube Feeding 562 270 Other 130 105 Output: Urine 1180 485 170 Other: Voiding Method Indwelling Catheter Indwelling Catheter Indwelling Catheter # Bowel Movements 1 ABP, PAP, CO, CI - Last Documented Arterial Blood Pressure 113/55 Pulmonary Artery Pressure 40/20 Cardiac Output 4.3 Cardiac Index 2.2 - Exam The patient remains with mechanical ventilator support, tracheostomy tube midline and in place. Her sedation has been on hold for around 48 hours. She is mostly unresponsive except to painful stimuli, withdrawing from her bilateral feet and not responding with painful stimuli to her bilateral upper extremities today. - Constitutional General appearance: Present: no acute distress, obese - EENT EENT Comment(s): Scleral edema Eyes: Present: PERRLA, poor dentition, normal appearance. Absent: scleral icterus - Neck Details: Neck is supple, no JVD. Neck: Absent: lymphadenopathy - Respiratory Details: Lung sounds with coarse rhonchi throughout, diminished bilateral bases. Respirations are symmetrical and nonlabored with mechanical ventilator support. Current mechanical ventilator settings CPAP 5, pressure support 5 FiO2 40%. Tracheostomy tube midline and intact, #7 Bivona. Oxygen saturations are 98% on current mechanical ventilator settings. ABG results this morning show a pH of 7.46, pCO2 38, pO2 95, HCO3 27, oxygen saturation 98.4 and base excess 2.8. - Cardiovascular Details: Regular rhythm and rate. S1 and S2 present, negative for S3, gallop or murmur. Sternum is stable. Heart hugger in place. Bedside telemetry showing normal sinus rhythm heart rate 85 BPM. Knee-high DEBI hose and sequential compression devices in place to bilateral lower extremities. +1 generalized edema. - Gastrointestinal Gastrointestinal Comment(s): Abdomen is soft, and nondistended. Hypoactive bowel sounds present in all 4 abdominal quadrants. No guarding or rigidity. No organomegaly appreciated. Tube feedings currently on hold for abdominal ultrasound. Bowel movement 2 today. - Genitourinary Genitourinary Comment(s): Da Silva catheter for accurate I&O. Draining clear yellow urine with 360 mL output in the last 8 hours. Da Silva catheter was changed yesterday 08/08/2020. - Integumentary Integumentary Comment(s): Skin is warm and dry. No clubbing or cyanosis is present. Midline sternal incision is clean, dry and approximated. No drainage or redness is present. Gauze dressing is clean, dry and in place. Right lower extremity EVH site is clean, dry and approximated. No drainage or redness is present. - Neurologic Neurologic Comment(s): The patient remains unresponsive to verbal stimuli. She withdraws from painful stimuli to her bilateral lower extremities. Does not withdrawal from painful stimuli to her bilateral upper extremities today. PERRLA. Positive cough and gag. - Musculoskeletal Musculoskeletal: Present: generalized weakness - Psychiatric Psychiatric Comment(s): Unable to accurately assess at this time as the patient has a tracheostomy in place and is unresponsive to verbal stimuli. - Allied health notes Allied health notes reviewed: nursing - Labs CBC & Chem 7: 08/09/20 04:10 08/09/20 04:10 Labs: Abnormal Lab Results - Last 24 Hours (Table) 08/08/20 08/08/20 08/08/20 Range/Units 08:42 11:04 14:04 WBC (3.8-10.6) k/uL RBC (3.80-5.40) m/uL Hgb (11.4-16.0) gm/dL Hct (34.0-46.0) % Plt Count (150-450) k/uL Neutrophils # (1.3-7.7) k/uL ABG pH (7.35-7.45) ABG HCO3 (21-25) mmol/L ABG Total CO2 (19-24) mmol/L ABG O2 Saturation (94-97) % BUN 36 H (7-17) mg/dL Glucose 126 H (74-99) mg/dL POC Glucose (mg/dL) 143 H (75-99) mg/dL Calcium 8.1 L (8.4-10.2) mg/dL AST 2176 H (14-36) U/L ALT 2206 H (4-34) U/L Alkaline Phosphatase 156 H (38-126) U/L C-Reactive Protein (<10.0) mg/L Total Protein 5.6 L (6.3-8.2) g/dL Albumin 3.0 L (3.5-5.0) g/dL Urine Appearance Cloudy H (Clear) Urine Protein 1+ H (Negative) Urine Blood Large H (Negative) Urine RBC 150 H (0-5) /hpf Urine WBC 6 H (0-5) /hpf Amorphous Sediment Rare H (None) /hpf Urine Mucus Rare H (None) /hpf 08/08/20 08/08/20 08/09/20 Range/Units 18:55 23:11 04:10 WBC 21.2 H (3.8-10.6) k/uL RBC 2.69 L (3.80-5.40) m/uL Hgb 7.7 L (11.4-16.0) gm/dL Hct 24.8 L (34.0-46.0) % Plt Count 643 H (150-450) k/uL Neutrophils # 18.7 H (1.3-7.7) k/uL ABG pH (7.35-7.45) ABG HCO3 (21-25) mmol/L ABG Total CO2 (19-24) mmol/L ABG O2 Saturation (94-97) % BUN (7-17) mg/dL Glucose (74-99) mg/dL POC Glucose (mg/dL) 136 H 157 H (75-99) mg/dL Calcium (8.4-10.2) mg/dL AST (14-36) U/L ALT (4-34) U/L Alkaline Phosphatase (38-126) U/L C-Reactive Protein (<10.0) mg/L Total Protein (6.3-8.2) g/dL Albumin (3.5-5.0) g/dL Urine Appearance (Clear) Urine Protein (Negative) Urine Blood (Negative) Urine RBC (0-5) /hpf Urine WBC (0-5) /hpf Amorphous Sediment (None) /hpf Urine Mucus (None) /hpf 08/09/20 08/09/20 08/09/20 Range/Units 04:10 05:24 05:26 WBC (3.8-10.6) k/uL RBC (3.80-5.40) m/uL Hgb (11.4-16.0) gm/dL Hct (34.0-46.0) % Plt Count (150-450) k/uL Neutrophils # (1.3-7.7) k/uL ABG pH 7.46 H (7.35-7.45) ABG HCO3 27 H (21-25) mmol/L ABG Total CO2 28 H (19-24) mmol/L ABG O2 Saturation 98.4 H (94-97) % BUN 41 H (7-17) mg/dL Glucose 117 H (74-99) mg/dL POC Glucose (mg/dL) 117 H (75-99) mg/dL Calcium 8.0 L (8.4-10.2) mg/dL AST 1417 H (14-36) U/L ALT 1775 H (4-34) U/L Alkaline Phosphatase 138 H (38-126) U/L C-Reactive Protein 82.8 H (<10.0) mg/L Total Protein 5.2 L (6.3-8.2) g/dL Albumin 2.7 L (3.5-5.0) g/dL Urine Appearance (Clear) Urine Protein (Negative) Urine Blood (Negative) Urine RBC (0-5) /hpf Urine WBC (0-5) /hpf Amorphous Sediment (None) /hpf Urine Mucus (None) /hpf Microbiology - Last 24 Hours (Table) 08/08/20 20:14 Gram Stain - Preliminary Sputum Sputum Culture - Preliminary 08/08/20 11:05 Blood Culture - Final Blood 08/02/20 09:31 Blood Culture - Final Blood No Growth after 144 hours - Imaging and Cardiology Chest x-ray: report reviewed, image reviewed Assessment and Plan Assessment: 1. Triple-vessel coronary artery disease, unstable angina, status post three- vessel CABG 2. History of coronary artery disease with previous myocardial infarction and stent placement 3. Peripheral arterial disease with lower extremity stenting 4. History of lung cancer status post right lower lobectomy 5. Hypertension, currently hypotensive requiring IV pressors 6. Hyperlipidemia, treated, cholesterol 152, LDL 85 7. COPD with previous tobacco dependence, preoperative FEV1 82% of predicted 8. Anxiety/depression 9. Family history of premature coronary artery disease 10. Postoperative acute blood loss anemia, expected, status post 1 unit packed red blood cell transfusion 11. Postoperative acute/subacute right cerebellar infarct, unexpected, with evidence of previous right parietal stroke 12. Bilateral internal carotid artery disease greater than 75% present on CTA 13. Prolonged mechanical ventilation, unexpected acute hypoxemic respiratory failure because of her recent CVA, status post tracheostomy placement 14. Paroxysmal atrial fibrillation, status post ligation of the left atrial appendage, currently sinus rhythm 15. Leukocytosis, final sputum culture results shows Klebsiella oxytoca and Lali albicans 16. Malnutrition, status post percutaneous endoscopic gastrostomy tube placement 17. Elevated transaminase enzymes, likely secondary to amiodarone and Lipitor which are currently on hold, liver enzymes trending down today Plan: 1. Continue aspirin, and beta tran. Metoprolol tartrate was increased to 100 G-tube twice a day yesterday 08/08/2020. 2. Routine tracheostomy care. 3. Mechanical ventilator management per pulmonology/critical care management. Bronchodilators per pulmonology/critical care management. Weaning trial in progress. 4. The patient son Christian has been updated on her care. 5. Continue to monitor daily labs and chest x-rays. Electrolyte replacement per protocol. 6. GI and DVT prophylaxis. 7. Continue to hold amiodarone and statin due to her elevated liver enzymes. Liver enzymes trending down today. We will restart her statin once her liver enzymes have normalized. 8. Continue Da Silva catheter and record accurate I's and O's. The catheter was exchanged yesterday 08/08/2020. 9. Pain control with current when necessary orders. 10. Strict accurate intake and output. Daily weights 11. Final result of sputum culture showing Klebsiella oxytoca from 08/05/2020, currently on Rocephin for antibiotic treatment. T-max temperature in the last 24 hours 99.9F. WBC count today is 21.2 which is trending down. Blood culture from 08/08/2020 pulmonary result showing gram-positive cocci in clusters. Awaiting final result. She was started on vancomycin with pharmacy to dose. Sputum culture from yesterday 08/08/2020 shows few epithelial cells and few gram-positive cocci. 12. We will obtain a computed tomography scan of her brain today without contrast, reevaluate CVA. 13. Infectious disease consult noted and appreciated. 14. Gastroenterology consult noted and appreciated. Results of abdominal ultrasound pending. 15. Continue Eliquis 5 mg per PEG tube twice a day for anticoagulation. 16. More recommendations to follow based on patient's clinical course. Time with Patient: Greater than 30
--- NOTE | 2020-08-09 11:00 | US ---
EXAMINATION TYPE: US abdomen complete DATE OF EXAM: 08/09/2020 COMPARISON: NONE CLINICAL HISTORY: elevated LFT. EXAM MEASUREMENTS: Liver Length: 15 cm Gallbladder Wall: 0.3 cm CBD: 0.3 cm Spleen: 6.7 cm Right Kidney: 11.1 cm Left Kidney: 10.6 cm Pancreas: Limited evaluation Liver: No evident mass or dilated intra or eextrahepatic biliary duct, exam is somewhat limited Gallbladder: wnl CBD: wnl Spleen: wnl Right Kidney: wnl Left Kidney: wnl Upper IVC: wnl in its visualized portions Abd Aorta: Not well seen Kidneys show normal cortical medullary differentiation. There is no ascites. IMPRESSION: There is some limitations the exam. No significant abnormality is evident.
[2020-08-09 11:48] LABS: Glucose,Whole Blood 115 mg/dL (75-99)
[2020-08-09] MEDS: levETIRAcetam IV 500 MG in SODIUM CHLORIDE 0.9% 100 ML IVPB SCH (11:50)
--- NOTE | 2020-08-09 13:43 | P.PN ---
Subjective Progress Note Date: 08/09/20 CHIEF COMPLAINT: Malnutrition HISTORY OF PRESENT ILLNESS: Patient seen and examined with Dr. Pena. Ramirez whiting is in the ICU. She is status post PEG tube placement by Dr. pena on 08/06/2020. Patient is tolerating tube feedings. No residual from tube feeding. She is status post tracheostomy placement by Dr. Alan. Patient is intubated. She has had elevated LFTs. She was evaluated by GI service who thought it was medication induced. Medications such as amiodarone and Lipitor were discontinued. Abdominal ultrasound showing no significant abnormality. Afebrile WBC 21.2 PHYSICAL EXAM: VITAL SIGNS: Reviewed. GENERAL: Well-developed in no acute distress. HEENT: No sclera icterus. Extraocular movements grossly intact. Moist buccal mucosa. Head is atraumatic, normocephalic. ABDOMEN: Soft. Nondistended. Nontender. PEG tube site clean dry and intact NEUROLOGIC: Patient is intubated. ASSESSMENT: 1. Moderate protein calorie malnutrition status post PEG tube placement PLAN: -Continue supportive care -Titrate PEG tube feedings per dietitian recommendations Physician Knock Up Assembler note has been reviewed by physician. Signing provider agrees with the documented findings, assessment, and plan of care. Objective - Vital Signs Vital signs: Vital Signs Temp 99.5 F 08/09/20 12:00 Pulse 54 L 08/09/20 12:00 Resp 17 08/09/20 12:00 BP 116/53 08/09/20 12:00 Pulse Ox 96 08/09/20 12:00 Intake & Output 08/08/20 08/09/20 08/09/20 18:59 06:59 18:59 Intake Total 1492 1025 900 Output Total 1180 485 275 Balance 312 540 625 Weight 92.4 kg 91.9 kg Intake: IV 200 650 300 Dextrose 5% in Water 1, 50 000 ml @ 50 mls/hr IV . Q23H [facility] with Sodium Bicarb (1 Meq/ml) 150 ml Rx#:[id number] Sodium Chloride 0.45% 1, 550 300 000 ml @ 50 mls/hr IV . Q20H [facility] Rx#:[id number] cefTRIAXone 1 gm In 50 Sodium Chloride 0.9% 50 ml @ 100 mls/hr IVPB Q24HR [facility] Rx#:[id number] levETIRAcetam IV 500 mg 100 100 In Sodium Chloride 0.9% 100 ml @ 400 mls/hr IVPB Q12HR@0000,1200 [facility] Rx#: [id number] Intake, IV Titration 600 600 Amount Sodium Chloride 0.45% 1, 600 000 ml @ 50 mls/hr IV . Q20H [facility] Rx#:[id number] Vancomycin 1,750 mg In 500 Sodium Chloride 0.9% 500 ml 500 ml @ 167 mls/hr IVPB ONCE ONE Rx#: [id number] levETIRAcetam IV 1,500 mg 100 In Saline 1 100ml.bag @ 400 mls/hr IVPB ONCE STA Rx#:[id number] Tube Feeding 562 270 Other 130 105 Output: Urine 1180 485 275 Other: Voiding Method Indwelling Catheter Indwelling Catheter Indwelling Catheter # Bowel Movements 1 ABP, PAP, CO, CI - Last Documented Arterial Blood Pressure 113/55 Pulmonary Artery Pressure 40/20 Cardiac Output 4.3 Cardiac Index 2.2 - Labs CBC & Chem 7: 08/09/20 04:10 08/09/20 04:10 Labs: Abnormal Lab Results - Last 24 Hours (Table) 08/08/20 08/08/20 08/08/20 Range/Units 14:04 18:55 23:11 WBC (3.8-10.6) k/uL RBC (3.80-5.40) m/uL Hgb (11.4-16.0) gm/dL Hct (34.0-46.0) % Plt Count (150-450) k/uL Neutrophils # (1.3-7.7) k/uL ABG pH (7.35-7.45) ABG HCO3 (21-25) mmol/L ABG Total CO2 (19-24) mmol/L ABG O2 Saturation (94-97) % BUN 36 H (7-17) mg/dL Glucose 126 H (74-99) mg/dL POC Glucose (mg/dL) 136 H 157 H (75-99) mg/dL Calcium 8.1 L (8.4-10.2) mg/dL AST 2176 H (14-36) U/L ALT 2206 H (4-34) U/L Alkaline Phosphatase 156 H (38-126) U/L C-Reactive Protein (<10.0) mg/L Total Protein 5.6 L (6.3-8.2) g/dL Albumin 3.0 L (3.5-5.0) g/dL 08/09/20 08/09/20 08/09/20 Range/Units 04:10 04:10 05:24 WBC 21.2 H (3.8-10.6) k/uL RBC 2.69 L (3.80-5.40) m/uL Hgb 7.7 L (11.4-16.0) gm/dL Hct 24.8 L (34.0-46.0) % Plt Count 643 H (150-450) k/uL Neutrophils # 18.7 H (1.3-7.7) k/uL ABG pH (7.35-7.45) ABG HCO3 (21-25) mmol/L ABG Total CO2 (19-24) mmol/L ABG O2 Saturation (94-97) % BUN 41 H (7-17) mg/dL Glucose 117 H (74-99) mg/dL POC Glucose (mg/dL) 117 H (75-99) mg/dL Calcium 8.0 L (8.4-10.2) mg/dL AST 1417 H (14-36) U/L ALT 1775 H (4-34) U/L Alkaline Phosphatase 138 H (38-126) U/L C-Reactive Protein 82.8 H (<10.0) mg/L Total Protein 5.2 L (6.3-8.2) g/dL Albumin 2.7 L (3.5-5.0) g/dL 08/09/20 08/09/20 Range/Units 05:26 11:36 WBC (3.8-10.6) k/uL RBC (3.80-5.40) m/uL Hgb (11.4-16.0) gm/dL Hct (34.0-46.0) % Plt Count (150-450) k/uL Neutrophils # (1.3-7.7) k/uL ABG pH 7.46 H (7.35-7.45) ABG HCO3 27 H (21-25) mmol/L ABG Total CO2 28 H (19-24) mmol/L ABG O2 Saturation 98.4 H (94-97) % BUN (7-17) mg/dL Glucose (74-99) mg/dL POC Glucose (mg/dL) 115 H (75-99) mg/dL Calcium (8.4-10.2) mg/dL AST (14-36) U/L ALT (4-34) U/L Alkaline Phosphatase (38-126) U/L C-Reactive Protein (<10.0) mg/L Total Protein (6.3-8.2) g/dL Albumin (3.5-5.0) g/dL Microbiology - Last 24 Hours (Table) 08/08/20 11:05 Blood Culture Gram Stain - Preliminary Blood 08/08/20 20:14 Gram Stain - Preliminary Sputum Sputum Culture - Preliminary 08/08/20 11:05 Blood Culture - Final Blood 08/02/20 09:31 Blood Culture - Final Blood No Growth after 144 hours
--- NOTE | 2020-08-09 14:09 | CT ---
EXAMINATION TYPE: CT brain wo con DATE OF EXAM: 08/09/2020 HISTORY: history of cva CT DLP: 1232.4 mGycm. Automated Exposure Control for Dose Reduction was Utilized. TECHNIQUE: CT scan of the head is performed without contrast. COMPARISON: CT brain July 29, 2020 and July 28, 2020. FINDINGS: There is no acute intracranial hemorrhage or midline shift identified. There is diffuse v entricular and sulcal prominence consistent with diffuse age-related cerebral atrophy. There is low- attenuation in the periventricular white matter consistent with chronic small vessel ischemic change. Evolving subacute on chronic infarct right parietal-occipital lobe posterior watershed region redemo nstrated. New opacification mastoid air cells bilaterally including involvement extending into the ri ght petrous apex. Marked interval improvement in keene-white matter blurring and sulcal effacement sup erior right cerebellar hemisphere extending towards the periphery, small residual area noted axial im age 14. The globes are intact and the visualized sinuses are clear. IMPRESSION: No acute intracranial hemorrhage or midline shift. There is mild to moderate diffuse ag e-related cerebral atrophy and moderate to advanced chronic small vessel ischemic change redemonstrat ed. Small area of evolving subacute infarct involving the right superior cerebellar hemisphere is di minished in size from prior studies suggesting some interval salvage of prior diminished perfusion br ain parenchyma. Subacute or old right posterior watershed infarct redemonstrated. New bilateral masto id fluid collection, correlate for interval development of acute mastoiditis.
[2020-08-09] MEDS: IPRATROPIUM-ALBUTEROL 3 ML NEB INHALATION PRN (15:43)
--- NOTE | 2020-08-09 15:46 | P.PN ---
Subjective Progress Note Date: 08/09/20 Cardiothoracic team asked us to re-evaluate the patient since no improvement in patient condition. Patient was last seen on 08-05-[address] Thompson and felt her exam was unchanged. I personally saw the patient last on 07/29/20. Since then the patient has been off sedation for more than 48 hours. The pat juan has a trach and is on a ventilator and has PEG tube. Per the patient nurse she stated the patient would sporadically move the right arm other than that no movement is noted. Patient remains to be on Keppra 500 mg IV once every 12 hours as a seizure prophylaxis. Patient had a repeat CT of the head to see whether there is any new strokes or edema (ordered by cardio-thoracic team) 08/09/20 and it's reported no acute intracranial hemorrhage or midline shift. There is mild to moderate diffuse age-related cerebral atrophy and moderate to advanced chronic small vessel ischemic changes redemonstrated. Small area of evolving subacute infarct involving the right superior cerebellar hemisphere diminished in size from the prior studies suggesting some interval salvage of prior diminished perfusion brain parenchyma. Subacute or old posterior watershed infarct redemonstrated. Bilateral mastoid fluid collection, correlate for interval development of acute mastoiditis. In the body of the report it is reported as evolving subacute on chronic infarct in the right parietal occipital lobe posterior watershed region redemonstrated. Patient white blood cell last is 21.2. Patient last temperature was 99.5 and got high as 100.1 on 08/08/2020 at 9:00 but other than that never got higher Her blood pressure has been in the range of 100 to 1:30 systolic and diastolic 40s to 60s. Her hemoglobin last was 7.7 the day prior was 8.4 Patient AST last is 1417 and it's trending down a got as high as 2995 (08/08/20) The ALT is 1775 and a got high as 2452 during her admission (08/08/20) Ammonia on 08/08/2020 is <9 (normal). The glucose has been in the range of 100 to 150s. Last urine analysis seems negative for urinary tract infection. Hepatitis a, the antigen and core and hepatitis C are nonreactive. Currently the patient is on vancomycin 1500 one tablet every 12 hours and ceftriaxone 1 g every 24 hours Objective - Vital Signs Vital signs: Vital Signs Temp 99.5 F 08/09/20 12:00 Pulse 57 L 08/09/20 14:00 Resp 18 08/09/20 14:00 BP 130/66 08/09/20 14:00 Pulse Ox 94 L 08/09/20 14:00 Intake & Output 08/08/20 08/09/20 08/09/20 18:59 06:59 18:59 Intake Total 1492 1025 1000 Output Total 1180 485 400 Balance 312 540 600 Weight 92.4 kg 91.9 kg Intake: IV 200 650 400 Dextrose 5% in Water 1, 50 000 ml @ 50 mls/hr IV . Q23H [facility] with Sodium Bicarb (1 Meq/ml) 150 ml Rx#:[id number] Sodium Chloride 0.45% 1, 550 400 000 ml @ 50 mls/hr IV . Q20H [facility] Rx#:[id number] cefTRIAXone 1 gm In 50 Sodium Chloride 0.9% 50 ml @ 100 mls/hr IVPB Q24HR [facility] Rx#:[id number] levETIRAcetam IV 500 mg 100 100 In Sodium Chloride 0.9% 100 ml @ 400 mls/hr IVPB Q12HR@0000,1200 [facility] Rx#: [id number] Intake, IV Titration 600 600 Amount Sodium Chloride 0.45% 1, 600 000 ml @ 50 mls/hr IV . Q20H [facility] Rx#:[id number] Vancomycin 1,750 mg In 500 Sodium Chloride 0.9% 500 ml 500 ml @ 167 mls/hr IVPB ONCE ONE Rx#: [id number] levETIRAcetam IV 1,500 mg 100 In Saline 1 100ml.bag @ 400 mls/hr IVPB ONCE STA Rx#:[id number] Tube Feeding 562 270 Other 130 105 Output: Urine 1180 485 400 Other: Voiding Method Indwelling Catheter Indwelling Catheter Indwelling Catheter # Bowel Movements 1 ABP, PAP, CO, CI - Last Documented Arterial Blood Pressure 113/55 Pulmonary Artery Pressure 40/20 Cardiac Output 4.3 Cardiac Index 2.2 - Exam GENERAL: The patient is lying in bed and is not in acute distress. LUNG: Trach and on ventilator (breathing over the vent. NEUROLOGICAL: Higher mental function: GCS (11): E4, V1, M6. The patient is awake and not following commands or attempt to communicate. Cranial nerves: The pupils are round, equal 3mm bilaterally and reactive to ligh t. Her primary gaze is midline bilaterally. No facial weakness noted bilaterally. Rest of cranial nerves unable to assess. Motor: Gait is unable to assess. The strength is moving the right upper extremity sponatenously above gravity. With painful stimli she will withdrawl right upper and right lower extremity. Decrease tone throughout. Normal bulk. Cerebellum: Unable to assess. Sensation:Could not assess light touch. But to painful stimuli she withdrawls the right upper and right lower extremity with some withdrawl of left lower extreimty (right better than left). Reflexes (right/left): 0 throughout. Plantars is mute bilaterally. - Labs CBC & Chem 7: 08/09/20 04:10 08/09/20 04:10 Labs: Abnormal Lab Results - Last 24 Hours (Table) 08/08/20 08/08/20 08/08/20 Range/Units 14:04 18:55 23:11 WBC (3.8-10.6) k/uL RBC (3.80-5.40) m/uL Hgb (11.4-16.0) gm/dL Hct (34.0-46.0) % Plt Count (150-450) k/uL Neutrophils # (1.3-7.7) k/uL ABG pH (7.35-7.45) ABG HCO3 (21-25) mmol/L ABG Total CO2 (19-24) mmol/L ABG O2 Saturation (94-97) % BUN 36 H (7-17) mg/dL Glucose 126 H (74-99) mg/dL POC Glucose (mg/dL) 136 H 157 H (75-99) mg/dL Calcium 8.1 L (8.4-10.2) mg/dL AST 2176 H (14-36) U/L ALT 2206 H (4-34) U/L Alkaline Phosphatase 156 H (38-126) U/L C-Reactive Protein (<10.0) mg/L Total Protein 5.6 L (6.3-8.2) g/dL Albumin 3.0 L (3.5-5.0) g/dL 08/09/20 08/09/20 08/09/20 Range/Units 04:10 04:10 05:24 WBC 21.2 H (3.8-10.6) k/uL RBC 2.69 L (3.80-5.40) m/uL Hgb 7.7 L (11.4-16.0) gm/dL Hct 24.8 L (34.0-46.0) % Plt Count 643 H (150-450) k/uL Neutrophils # 18.7 H (1.3-7.7) k/uL ABG pH (7.35-7.45) ABG HCO3 (21-25) mmol/L ABG Total CO2 (19-24) mmol/L ABG O2 Saturation (94-97) % BUN 41 H (7-17) mg/dL Glucose 117 H (74-99) mg/dL POC Glucose (mg/dL) 117 H (75-99) mg/dL Calcium 8.0 L (8.4-10.2) mg/dL AST 1417 H (14-36) U/L ALT 1775 H (4-34) U/L Alkaline Phosphatase 138 H (38-126) U/L C-Reactive Protein 82.8 H (<10.0) mg/L Total Protein 5.2 L (6.3-8.2) g/dL Albumin 2.7 L (3.5-5.0) g/dL 08/09/20 08/09/20 Range/Units 05:26 11:36 WBC (3.8-10.6) k/uL RBC (3.80-5.40) m/uL Hgb (11.4-16.0) gm/dL Hct (34.0-46.0) % Plt Count (150-450) k/uL Neutrophils # (1.3-7.7) k/uL ABG pH 7.46 H (7.35-7.45) ABG HCO3 27 H (21-25) mmol/L ABG Total CO2 28 H (19-24) mmol/L ABG O2 Saturation 98.4 H (94-97) % BUN (7-17) mg/dL Glucose (74-99) mg/dL POC Glucose (mg/dL) 115 H (75-99) mg/dL Calcium (8.4-10.2) mg/dL AST (14-36) U/L ALT (4-34) U/L Alkaline Phosphatase (38-126) U/L C-Reactive Protein (<10.0) mg/L Total Protein (6.3-8.2) g/dL Albumin (3.5-5.0) g/dL Microbiology - Last 24 Hours (Table) 08/08/20 11:05 Blood Culture Gram Stain - Preliminary Blood 08/08/20 20:14 Gram Stain - Preliminary Sputum Sputum Culture - Preliminary 08/08/20 11:05 Blood Culture - Final Blood 08/02/20 09:31 Blood Culture - Final Blood No Growth after 144 hours Assessment and Plan Assessment: This is a 75-year-old woman with multiple medical problems the underwent coronary artery bypass grafting yesterday (07/27/2020) for her severe triple coronary artery disease. Today while the sedation was off was noted that she had left-sided weakness is CT head was done and showed acute to subacute area infarct in the right cerebellar. Subacute to chronic with Right cerebellar infarct and right parietal-occipital (seem more chronic) with left hemiplegia The strokes were noted post CABG 07/27/2020. Patient probably had showers of emboli from cardiac source. Stroke likely cardioembolic. Altered mental status probably due to ischemic encephalopathy, with superimposed toxic metabolic causes. Bilateral ICA stenosis > 75% per CTA, however no significant stenosis per carotid Doppler. Leukocytosis of unclear etiology Elevated LFT's Anemia Acute hypoxic respiratory failure and remains on a ventilator status post trach and continuing requiring respiratory support Peripheral arterial disease with lower extremity stenting History of lung cancer status post right lower lobectomy Hyperlipidemia Hypertension Hyperlipidemia Previous tobacco use Plan: Currently on ASA 81mg daily for secondary stroke prophylaxis. High dose statin is held since patient has elevated LFT's. Patient is on Eliquis 5 mg 1 tablet twice a day for patient's atrial fibrillation Patient is on Keppra 500 mg IV once every 12 hours as a seizure prophylaxis. Currently the patient is on vancomycin 1500 one tablet every 12 hours and ceftriaxone 1 g every 24 hours only defer the management to ID team. We'll defer the rest of the medical management per the primary team as well as ICU team. I had the patient more than a week ago and after coming back there is no improvement in her condition. I notified the patient's son who is at bedside that the patient's quality of life seems poor. I notified that the she'll be dependent on PEG tube and the basic needs (bathing, feeding etc). I notified him that there should be a family discussion (with his rest of siblings) regarding what the family wishes and how to proceed forward. Yamil Luong MD Neuro-Hospitalist Time with Patient: Greater than 30
[2020-08-09 17:05] LABS: Glucose,Whole Blood 119 mg/dL (75-99)
[2020-08-09] MEDS: LOSARTAN 25 MG TAB PO SCH (20:23)
[2020-08-09] MEDS: VANCOMYCIN 1,500 MG in SODIUM CHLORIDE 0.9% 250 ML IVPB SCH (20:23)
[2020-08-09] MEDS: SENNOSIDES-DOCUSATE SODIUM 1 EACH TAB PO SCH (20:23)
--- NOTE | 2020-08-09 23:25 | PN ---
PROGRESS NOTE DATE OF SERVICE: 08/09/2020 REASON FOR FOLLOW UP: Leukocytosis and bacteremia. INTERVAL HISTORY: The patient did have a low-grade fever of 99.9 around midnight and has been running a low-grade fever. The patient is hemodynamically stable on pressor support. FiO2 is currently 40%. No significant purulent secretions in the ET or any diarrhea per the nursing staff. The patient herself unable to provide any history. PHYSICAL EXAMINATION: Blood pressure 130/58 with a pulse of 55. Temperature 99.2. She is 96% on 40% FiO2. General description is an elderly female lying in bed in no distress. Respiratory system: Unlabored breathing, decreased breath sounds in the bases. No wheeze. Heart S1, S2. Regular rate and rhythm. Abdomen soft, no tenderness. LABS: Hemoglobin 7.7, white count 1.2 with a BUN of 41, creatinine 0.66. Blood cultures are now showing a Gram-positive cocci. Sputum cultures pending. Ultrasound of the abdomen was negative. DIAGNOSTIC IMPRESSION AND PLAN: Patient with leukocytosis, multifactorial, now with evidence of positive blood cultures. Blood cultures will be repeated from the PICC line and peripherally. Vancomycin has been added and we will monitor her white count closely in view of response to the fluconazole that will be continued and continue supportive care. MMODL / IJN: [id number] /
[2020-08-09 23:48] LABS: Glucose,Whole Blood 133 mg/dL (75-99)
[2020-08-10 00:29] LABS: Glucose,Whole Blood 149 mg/dL (75-99)
[2020-08-10] MEDS: FLUCONAZOLE 100 MG TAB PO SCH ×2 (00:38→08:29)
[2020-08-10] MEDS: levETIRAcetam IV 500 MG in SODIUM CHLORIDE 0.9% 100 ML IVPB SCH ×2 (00:38→11:48)
[2020-08-10] MEDS: ARTIFICIAL TEARS OINTMENT 3.5 GM TUBE BOTH EYES SCH ×6 (00:38→19:56)
[2020-08-10] MEDS: INSULIN ASPART (NovoLOG) 100 UNIT/ML VIAL SQ SCH ×4 (00:39→18:04)
[2020-08-10 04:21] LABS: African American GFR (CKD) >90 (>60 ml/min/1.73 sqM); Albumin 2.8 g/dL (3.5-5.0); Alkaline Phosphatase 138 U/L (38-126); Anion Gap 5 mmol/L; Blood Urea Nitrogen 41 mg/dL (7-17); Calcium 7.9 mg/dL (8.4-10.2); Carbon Dioxide 28 mmol/L (22-30); Chloride 105 mmol/L (98-107); Glucose 130 mg/dL (74-99); Non-African American GFR(CKD) >90 (>60 ml/min/1.73 sqM); Potassium 3.5 mmol/L (3.5-5.1); Sodium 138 mmol/L (137-145); Total Bilirubin 0.6 mg/dL (0.2-1.3); Total Protein 5.3 g/dL (6.3-8.2)
[2020-08-10 04:29] LABS: Allen Test Performed? Yes
[2020-08-10 04:31] LABS: ABG Base Excess 2.5 mmol/L; ABG HCO3 27 mmol/L (21-25); ABG Oxygen Saturation 97.5 % (94-97); ABG PCO2 40 mmHg (35-45); ABG PH 7.44 (7.35-7.45); ABG PO2 86 mmHg (83-108); ABG TCO2 28 mmol/L (19-24)
[2020-08-10 04:32] LABS: ALT 1971 U/L (4-34)
[2020-08-10 05:13] LABS: AST 1374 U/L (14-36)
[2020-08-10 05:33] LABS: Basophils # (A) 0.1 k/uL (0-0.2); Basophils % (A) 0 %; Eosinophils # (A) 0.5 k/uL (0-0.7); Eosinophils % (A) 3 %; HCT 25.5 % (34.0-46.0); HGB 7.9 gm/dL (11.4-16.0); Hypochromasia Moderate; Lymphocytes # (A) 1.2 k/uL (1.0-4.8); Lymphocytes % (A) 7 %; MCH 29.7 pg (25.0-35.0); MCV 95.6 fL (80.0-100.0); Mean Platelet Volume 7.9; Monocytes # (A) 0.8 k/uL (0-1.0); Monocytes % (A) 5 %; Neutrophils # (A) 14.9 k/uL (1.3-7.7); Neutrophils % (A) 85 %; Platelet Count 617 k/uL (150-450); RBC 2.67 m/uL (3.80-5.40); RDW 14.9 % (11.5-15.5); WBC 17.7 k/uL (3.8-10.6)
[2020-08-10 05:41] LABS: Glucose,Whole Blood 132 mg/dL (75-99)
[2020-08-10] MEDS: SODIUM CHLORIDE 0.45% 1,000 ML IV SCH ×2 (05:47→20:02)
--- NOTE | 2020-08-10 06:49 | P.PN ---
Subjective Progress Note Date: 08/10/20 Coronary artery disease status post coronary artery bypass grafting Patient was reevaluated today on 07/28/2020, remains intubated and mechanically ventilated. Patient is now on assist control mode of mechanical ventilation with a rate of 16, volume is 450 FiO2 is 50% and PEEP of 5. Unfortunately the p atjuan was noted to have poor movement of her left upper and left lower extremity last night, CT of the head last night showed acute/subacute area of infarction in the right cerebellum along with probable area of chronic infarction in the right parietal region I evaluated the patient this morning, s eems to be extremely restless and agitated, seems to be neglecting the left side, and both eyes are deviated to the right and upwards. Patient seems to be moving her right side quite well, however the left side seems to be relatively weak although she was squeezing my hand with her left hand. And minimal movement noted in the left lower extremity. Patient is on Precedex, and seems to be agitated in spite of Precedex. Her ventilatory settings are reasonable, ABG is reasonable, patient is basically extubate overall, however her mental status is a bit concerning specially with her extreme agitation, keeps pulling and shaking the railing of the bed on the right side. Patient was given Ativan, and I have recommended increasing Precedex. She is not truly quite ready to be extubated today. Again my major concern is her mental status. And she is yet to be seen by neurology on consultation. Blood pressure is quite high, 160 systolic, norepinephrine was discontinued during my evaluation. She was on a very minimal dose of 0.1 mcg/kg/m of norepinephrine patient was also on milrinone. CBC is relatively normal hemoglobin is 7.4. ABG this morning showed a pO2 of 92 pCO2 of 38 pH of 7.45. This was on 50% FiO2. Electrolytes and renal profile are normal. Chest x-ray showed mostly postoperative changes of CABG 07/29/2020, I'm seeing the patient for a follow-up in the intensive care unit. This morning the patient is heavily sedated with propofol and she is calm and comfortable. Unfortunately with that, neurologic examination is not possible. I would suggest gradually cutting down the propofol and assess her neuro status and if needed utilize Precedex as an alternative sedative drip. Meanwhile, the patient remains essentially with enema to severe with a low dose of norep inephrine infusion running at 0.06 mcg/kg per minute. She has an adequate urine output. Cardiac rhythm is sinus. She has a left pleural and mediastinal chest tubes and output from those are in order of minimal, less than 100 over the past 24 hours. The chest x-ray showing cardiomegaly. There is some kyphoscoliosis of the chest. Chest tubes are in good location. ET tube is in good location. Atelectatic changes and some mild four-vessel congestion. Meanwhile, the patient's vent settings include an assist-control mode at the rate of 16 with a tidal volume of 450 and FiO2 of 40% with a PEEP of 5. The blood gases from this morning showed a pH of 7.49 with a pCO2 of 36 and pO2 of 82. On today's blood work, the patient's hemoglobin is down to 6.9 from 7.4. Platelets is at 210. 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 Intracranial cerebral arteries were essentially patent with nothing significantly stenotic. During our limited neurologic evaluation, the patient did not do mistreat any withdrawal with to painful stimulation. No Babinski. No clonus. Nevertheless, I was told by the nursing staff that she was able to move her right side yesterday and her left side once off sedation. Pupils are equal and reactive to light and order of 3 mm. No preferential gaze on today's evaluation. A sedation holiday will be given. She is on enteral nutrition. No other drips. No seizure activity. Neurologist on the case. She is on aspirin, Plavix, and she also on metoprolol 12.5 mg by mouth twice a day. She is also on high-dose statins. Progress note dated 05/29/2021. Currently, this is a 75-year-old female who was admitted to the hospital on July 21. She went to the operating room, on July 27 for a three-vessel bypass grafting with Dr. Alan. The patient has never been extubated. Unfortunately, she developed a right cerebellar CVA. She remains on the mechanical ventilator. She is currently on the volume assist control mode, rate is 16, tidal volume 400, FiO2 60%, and PEEP of 5. The blood gases show a PaO2 of 99, a PaCO2 of 40, and a pH of 7.44. She also remains on lactated Ringer's at 20 mL an hour, propofol was turned off for the spontaneous breathing trial, and she's been weaned off of norepinephrine. She is receiving vital AF, at a rate of 30 mL an hour, with a goal of 57 mL an hour. We placed the patient on pressure support of 5 CPAP of 5, and stayed in the room to observe her response to the spontaneous breathing trial. Unfortunately, the patient's respiratory rate went up above 40, and a tidal volumes dropped down to 200 range. Her m inute volume was quite high, and the patient was placed back on the volume assist control mode. After the failed spontaneous breathing trial, the patient's tidal volume was dropped down to 350, her FiO2 was decreased to 50%, and the peak level was increased from 5 to 8 cm water. White count is 12.8, hemoglobin 8, hematocrit 23.5, and platelet count 210,000. Blood gases have been reviewed. Sodium 139, potassium 3.6, chlorides 107, CO2 27, anion gap 5, BUN 33, and creatinine 0.64. Chest x-ray shows a right lower lobe infiltrate and my opinion. Progress note dated 07/31/2020 75-year-old female, that was admitted to the hospital on July 21. She went to the operating room on July 27 for a three-vessel bypass grafting with Dr. Alan. The patient has never been extubated and unfortunately, she developed a right cerebellar CVA. She currently remains on the ventilator, on the volume assist control modality. She is on a rate of 16, tidal volume 350, FiO2 50%, and a PEEP of 8. Arterial blood gases show a PaO2 of 76, PaCO2 44, and a pH of 7.4. The patient is getting lactated Ringer's at KVO, amiodarone at 0.5 mg/m, and propofol at 30 mcg/kg/m. In addition, the patient's on vital AF 1.2 at 57, with a goal of 57 mL an hour. Today, we attempted a daily interruption of se dation and a spontaneous breathing trial. As noted yesterday, she failed her trial. Today, we placed her on PSV 8, and CPAP of 5. Currently, she is doing a bit better today. A Dobbhoff tube was placed yesterday. Unfortunately, she appears to be weaker on the right side. The left side she does not move at all. In the end, she may end up with the tracheostomy tube and a ET tube. Yesterday, after the spontaneous breathing trial, the patient unfortunately developed atrial fibrillation with RVR, and that is why the patient is on amiodarone. The patient is seen today 08/01/2020 in follow-up in the intensive care unit. She remains intubated on the mechanical ventilator. Current settings assist- control of with a rate of 16, tidal volume 350, FiO2 50% and a PEEP of 8. Morning blood gases reveal a P O2 of 77, pCO2 of 40, pH 7.47. She remains sedated on propofol at 30 mcg/kg/m. Lactated Ringer's at KVO. She developed atrial fibrillation with rapid ventricular response. She is currently on amiodarone at 0.5 mg/m. She is being nourished with vital HP at 20 ML's per hour which is goal. She was given daily interruption of sedation. She develops A. fib RVR during a spontaneous breathing trials yesterday. We'll trial again today. His chest x-ray continues to show stable diffuse pleuroparenchymal changes. Endotracheal tube and gastric tubes are secured in place. Left-sided chest tube has been removed. PICC line in place. She is status post 1 unit of packed red blood cells this admission. Current hemoglobin 7.1. White count 13.6. Sodium 136. Potassium 3.5. Creatinine 0.55. AST 107. ALT 105. Albumin 2.7. She is continued on DuoNeb inhalations. Heparin for DVT prophylaxis. The patient is seen today 08/02/2020 in follow-up in the intensive care unit. She remains intubated and sedated. Currently on mechanical ventilator assist control mode at a rate of 16. Tidal volume 350. FiO2 40%. PEEP of 8. Morning blood gases reveal a P O2 of 100, pCO2 38, pH 7.49. This is on 50% FiO2. She is currently sedated on propofol at 35 mcg/kg/m. She remains on heparin drip. 0.9 normal saline at 20 ML's per hour. She is being nourished with vital HP 20 ML's per hour which is goal. She was given daily interruption of sedation yesterday she became extremely tachypneic with a respiratory rate in the 40s, not following any commands. Placed back on assist control. Trial again today. She has been having issues with atrial fibrillation. Transitioned to oral amiodarone. Chest x-ray reveals left-sided PICC line in place. Endotracheal and gastric tubes are stable. Vertebral column stimulator in place. There are bilateral infiltrates/pleural effusions. Diffusion interstitial pattern. No pneumothorax. She has received 1 unit of packed red blood cells this admission. Current hemoglobin 7.6. Platelets 387. White count 20.6. Sodium 137. Potas sium 3.9. Creatinine 0.50. AST 67. ALT 83. Albumin 2.8. The patient is seen today 08/03/2020 in follow-up in the intensive care unit. Postoperative day #7. She remains intubated and sedated on the mechanical ventilator. Current mode assist control with a rate of 16, tidal been 350, FiO2 40% and a PEEP of 8. Morning blood gases reveal pO2 of 90, pCO2 40, pH 7.49. Currently on propofol at 20 mcg/kg/m. Remains on heparin drip at weight-based protocol. Lactated Ringer's at 20 ML's per hour. She is being nourished with vital HP at 28 ML's per hour which is goal. Free water flushes at 30 MLS every 4 hours. Sputum culture pending. White count 20.5. Hemoglobin 7.7. Sodium 139. Potassium 3.9. Creatinine 0.53. AST 70, ALT 80. She remains on DuoNeb inhalations. Chest x-ray reveals good placement of the endotracheal tube and Dobbhoff tubes. Left sided PICC line in place. Bibasilar densities persist. Perihilar increase attenuation noted within the lungs, left hemidiaphragm remains obscured greater than right. Currently afebrile. Hemodynamically stable. Currently in atrial fibrillation with controlled ventricular rate. She responds to painful stimuli on the right. She did sustain an acute bilateral cerebellar ischemic stroke right greater than left as well as a subacute evolving ischemic infarction including the right MCA/TAZ watershed territory with left-sided hemiplegia. She has not tolerated daily interruption of sedation due to her becoming tachypneic, tachycardic and hypertensive. The patient is seen today 08/04/2020 and follow-up in the intensive care unit. Postoperative day #8. She remains intubated and sedated on mechanical ventilator. Current settings assist-control at a rate of 16, tidal volume 350, FiO2 40%, PEEP of 5. Blood gases reveal a P O2 of 81, pCO2 38, pH 7.51. She remains on propofol at 25 mcg/kg/m. Heparin per weight base protocol. Lactated Ringer's at 20 ML's per hour. She is being nourished with vital HP at 20 mL per hour which is goal. She is spontaneously moving her right arm and right leg. Not following any simple commands. She is status post 1 unit of packed red blood cells this admission. Current hemoglobin 6.9. White count 19.4. Sodium 138. Potassium 3.7. Creatinine 0.71. AST 117, ALT 106. Albumin 2.7. She was given a interruption of sedation and spontaneous breathing trial yesterday. She did develop atrial fibrillation with rapid ventricular response with hypertension, tachypnea. Placed back on mechanical ventilator. We'll trial again today. Plan is for possible tracheostomy and PEG tube placements on 08/06/2020. Chest x-ray continues to show cardiomegaly with mild central venous congestion and left greater than right bibasilar acute infiltrates. Small left pleural effusion. No significant change compared to previous. Sputum culture reveals no growth. Blood culture reveals no growth. She remains on bronchodilators, ceftriaxone. The patient is seen today 08/05/2020 in follow-up in the intensive care unit. Postoperative day #9. She remains intubated, sedated on the mechanical ventilator. Assist-control mode at a rate of 16, tidal been 350, FiO2 40% and a PEEP of 5. Morning blood gases reveal a P O2 of 66, pCO2 38, pH 7.4. She remains on a heparin drip or weight base protocol. Lactated Ringer's at 20 ML's per hour. Propofol at 40 mcg/kg/m. She is being nourished with vital HP at 28 ML's per hour which is goal. Chest x-ray reveals evidence of cardiomegaly with moderate central vascular congestion and left basilar small pleural effusion with associated acute infiltrate and/or atelectasis. A bit worse compared to yesterday. She was given Lasix 20 mg IVP 1. Remains on bronchodilators and on ceftriaxone. Repeat sputum culture pending. Status post 2 units of packed red blood cells this admission. White count 16.6. Hemoglobin 7.6. Sodium 137. Potassium 3.7. Creatinine 0.60. AST 142. ALT 156. Albumin 2.6. Glucose 106. Amiodarone was discontinued due to elevated LFTs. Currently rate-controlled atrial fibrillation. On 08/06/2020 him on seeing the patient for a follow-up in the intensive care unit. This patient is currently postop day number not 10. She had a comfort care postoperative course following her bypass surgeon and the patient had developed a stroke with altered mentation and she never got to a point where she was awake and alert and following commands and as such her extubation process of eating was quite complicated. She was always agitated, restless, not following commands and not following the weaning protocols. As such, the patient was kept sedated and the patient was kept on a mechanical ventilator. She had received daily sedation holidays. She is at the point where she is going to have a PEG and trach today done by general surgery. Meanwhile, the patient is on propofol running at 50 mcg/kg per minute and this morning she is calm and comfortable. She is on assist-control mode at the rate of 60 with a tidal volume of 350 and FiO2 of 40% with a PEEP of 5. The blood gases from today showed a pH of 7.4 With a pCO2 of 40 and pO2 of 71. Hemoglobin is at 7.3 and the patient received a unit of packed RBC on 08/04/2020 and hemoglobin has remained stable since. The patient had some mild disturbance in the liver function tests. Amiodarone has been discontinued. Current cardiac rhythm is sinus. The patient is on no pressors. The patient currently is receiving IV fluids in the form of D5 half-n ormal along with potassium supplements at the rate of 40 mL an hour. Neurologically, she does have a pressure gaze to the right upper quadrant area. Pupils are equal and reactive to light. She withdraws to painful similar ablation 04 extremities. Neurologist on the case. She does have a Dobbhoff and the patient is receiving enteral feeding in the form of vital high protein and currently the tube feeds on hold pending surgery. Blood sugars under adequate control. Urine output is adequate. 08/07/2020, I'm seeing the patient for a follow-up. The patient is postop day #11. The patient remains on a mechanical ventilator. Because of her prolonged arrest 30 failure and altered mental status post CVA, the patient required to have a PEG tube insertion and tracheostomy tube insertion. The procedure was done yesterday and today patient is postop day #1 post tracheostomy tube insertion. She is currently on assist control mode at the rate of 60 without a volume of 350 and FiO2 of 40% with a PEEP of 5. Blood gases showed a pH of 7.29 with a pCO2 of 45 and pO2 of 76. Hematocrit ventilation on the mechanical ventilator is around 8.5. The chest x-ray from today shows adequate positioning of the tracheostomy tube. The patient has a #[address] in [address] The patient has a left upper extremity PICC line. The patient has some mild pulmonary vascular congestion. There is cardiomegaly. Trace left-sided pleural effusion. No other abnormalities noted. Meanwhile, as the patient was being weaned off the propofol, the patient was at atrial fibrillation with rapid ventricular response around 10 PM. The patient currently is on propofol of 25 mcg/kg per minute. The patient's is being treated with amiodarone drip. She was started with a bolus and following that she is was maintained on 0.5 mg per minute. Her current rate is 118 and still irregular. White cell count is at 21.6 and hemoglobin is at 8.6. Renal function is stable with a creatinine of 0.57, nevertheless, the patient has developed a component of metabolic acidosis with a serum bicarbonate up from 31 down to 20 and the liver function tests remain to be of normal with a bilirubin of 0.7, AST of 80, AST of 124. Her pro- calcitonin from 08/03/2020 was 0.12. IV fluids are running with D5 half-normal saline at the rate of 60 and the patient is nothing by mouth for now. The plan is to start some enteral feeding for nutritional support. In terms of her atrial fibrillation, the patient is on amiodarone drip and she is also on metoprolol 25 mg by mouth 3 times a day. 08/08/2020 I'm seeing the patient for a follow-up on postop day #12. Remains completely unresponsive despite being off sedation for the past 24-48 hours. She is post tracheostomy tube insertion and on today's evaluation the patient's chest x-ray shows no interval change and the patient has adequate positioning of the tracheostomy tube With some small trace bilateral pleural effusion and lung bases and some scattered bilateral pulmonary infiltrates. The patient has grown Klebsiella and Lali in his sputum and the patient remains on IV Rocephin for now. She is afebrile. Her white cell count has gone up to 24. The blood gases from today shows a pH of 7.43 with a pCO2 of 34 and pO2 of 74. After recovering from her atrial fibrillation, earlier this morning while taking a bath, the patient slipped back into A. fib RVR. Her current heart rate is somewhere between 100 and 115. She remains on IV heparin. She is on oral amiodarone at a dose of 200 mg by mouth twice a day and the patient is also on metoprolol 50 mg by mouth twice a day. Morning medication has not been given yet. No seizure activity. No sedatives. Neurologically unresponsive, she may grimace to painful stimulation, yet for the most part, she cannot follow commands and she is not moving any of her extremities upon demand. On today's evaluation, she was noted to have some increased work of breathing. Based on that, I increased her tidal volume to 450 and I put that on the VC plus mode. She seemed 3 much more comfortable an assist-control mode with a tidal volume of 450 and FiO2 of 40% with a PEEP of 5 with an inspiratory time of 0.9. She is receiving enteral feeding via effective and the patient is currently on vital high protein at the rate of 20 mL an hour. She is also on a bicarb drip with a serum bicarb of 27 and she is receiving a total of 250 mg of sodium bicarbonate D5 water at the rate of 50 mL an hour. 08/09/2020 I'm seeing the patient for a follow-up the is postop day #13 following cardiac surgery and active issue for now remains diminished level of consciousness and unresponsiveness. Note that the patient developed a CVA with left-sided weakness based on the CAT scan that was obtained postop. Nevertheless, the patient has not regained consciousness since. For the past 48 hours, she is been off sedation. On today's evaluation I see has grimacing to deep painful stimulation. She would open up her eyes spontaneously. She is still not following any commands. Pupils are equal and reactive to light. No motor function still. Brainstem reflexes are still abnormal liver function tests/shock liver. 2. Will placed on hold. Amylase and lipase were within normal limits. Ammonia level came back at less than 9. Liver function tests are down trending and the patient was taken off the Lipitor and amiodarone. She was also kept nothing by mouth for the past 24 hours. Her chest x-ray from today shows no significant interval change. Tracheostomy tube is in a good location and the patient has a Bivona tracheostomy tube in place and the chest x-ray from today is showing some bilateral pulmonary infiltrates most on the lung bases and possibly small pleural effusions bilaterally. The white cell count is down to 21. The pro-calcitonin level is still pending. The sputum culture was positive for Klebsiella and a repeat culture was obtained and the patient was kept on IV Rocephin. No significant orotracheal secretions. Earlier this morning the patient was on a VC plus mode with a tidal volume of 450 and the rate of 16 with a PEEP of 500 FiO2 of 40%. I switched this patient a spontaneous mode of breathing and currently she is on a pressure support of 5 and a PEEP of 5 and FiO2 of 40% and she is able to generate a tidal volume of 330 with a rate of 21 and a minute ventilation of 7.3. No signs of any respiratory distress. Hemodynamically she is stable on no pressors. She is in a normal sinus/She is on long-term anticoagulation with Eliquis. She is slightly edematous pressure and upper extremity and her net fluid balance over the past 24 hours has been 1 liter is still on half-normal saline today to 50 mL an hour. 08/10/2020, the patient seems to be more awake, obvious withdrawal to painful stimulation on the right, no movement on the left as the patient has a left- sided hemiplegia along with some left facial droop. Her gait is still to the right. I was able to elicit some response from her where she did squeeze my fingers upon demand using her right upper extremity. However the response was not consistent. She is resting comfortably in bed. She is hemodynamically stable. On and off she is going still into atrial fibrillation and this morning she is back in 2 A. fib. She remains on mechanical ventilator. Tracheostomy tube was pushed in further yesterday and on today's chest x-ray there is adequate positioning of the tracheostomy tube. There is diffuse bilateral pulmonary infiltrates as discussed earlier, unchanged. No pneumothorax. The patient is on assist control mode rate of 14 with a tidal volume of 450 and FiO2 of 40% with a PEEP of 5. Peak airway pressure is around 15. PH is at 7.43 with a pCO2 of 39 and pO2 of 86. A repeat CAT scan of the brain showed no acute abnormalities. Was sick is at 17.4 with a hemoglobin of 7.9. The rest of the renal function tests and electrodes are all within normal limits. The blood cul ture was was positive for coagulase-negative staph and the patient was given a dose of vancomycin. She remains on IV Rocephin. She remains on Keppra. Repeat the sputum is still showing no microbial growth. The patient is back on enteral feeding for nutritional support. She is currently running at the rate of 54 mL an hour which is at goal. Meanwhile, her liver function test was also showing recovery the patient's AST is down to 1374 and ALP is down to 1971. Ammonia level is not elevated. Blood sugar is controlled for now. Objective - Vital Signs Vital signs: Vital Signs Temp 97.7 F 08/10/20 04:00 Pulse 89 08/10/20 06:00 Resp 19 08/10/20 06:00 BP 109/55 08/10/20 06:00 Pulse Ox 94 L 08/10/20 06:00 Intake & Output 08/09/20 08/09/20 08/10/20 06:59 18:59 06:59 Intake Total 1025 1692 1234 Output Total 485 745 665 Balance 540 947 569 Weight 91.9 kg 93.3 kg Intake: IV 650 600 550 Sodium Chloride 0.45% 1, 550 600 550 000 ml @ 50 mls/hr IV . Q20H [facility] Rx#:[id number] levETIRAcetam IV 500 mg 100 In Sodium Chloride 0.9% 100 ml @ 400 mls/hr IVPB Q12HR@0000,1200 [facility] Rx#: [id number] Intake, IV Titration 600 Amount Vancomycin 1,750 mg In 500 Sodium Chloride 0.9% 500 ml 500 ml @ 167 mls/hr IVPB ONCE ONE Rx#: [id number] levETIRAcetam IV 1,500 mg 100 In Saline 1 100ml.bag @ 400 mls/hr IVPB ONCE STA Rx#:[id number] Tube Feeding 270 432 594 Other 105 60 90 Output: Urine 485 745 665 Other: Voiding Method Indwelling Catheter Indwelling Catheter Indwelling Catheter # Bowel Movements 1 ABP, PAP, CO, CI - Last Documented Arterial Blood Pressure 113/55 Pulmonary Artery Pressure 40/20 Cardiac Output 4.3 Cardiac Index 2.2 - Exam Intubated, sedated 75-year-old female patient. Sedated on propofol. The patient is not responsive. She may have a sluggish response to deep painful stimulation. She does have no motor function left upper extremity. Currently she has a tracheostomy tube in place which is a #7 Bivona tracheostomy tube. HEENT examination is grossly unremarkable. Mucous membranes are moist. There is a orally placed endotracheal tube, and the patient has a Dobbhoff catheter in place Neck supple. Full range of motion. No adenopathy thyromegaly or neck vein distention. Cardiovascular examination reveals an irregular rhythm and rate. Irregular S1- S2 consistent with atrial fibrillation with rapid ventricular response. Heart rate is around 120, irregular and the patient has his sternum which is intact and dry and clean and well-healed. Lungs reveal bilateral rhonchi. No wheezes or crackles. Breath sounds equal bilaterally., Sternal stable clean and intact and is well-healed Abdominal exam revealed normal bowel sounds. The abdomen was soft, non-tender, and without masses, organomegaly, or appreciable enlargement of the abdominal aorta. The patient has a PEG tube which is in place and exit site is dry clean and intact Extremities are intact. No cyanosis clubbing or edema. Skin is without rash or lesion. Neurologic examination she may grimace to painful stimulation. There may be some facial asymmetry with some left-sided weakness. Pupils are equal and reactive to light. I was unable to elicit any motor response on today's evaluation. Nevertheless, the patient had left-sided weakness. No clonus. Reflexes are diminished. Extremities symmetrical in all 4 extremities. Babinski could not be elicited. Does have a weak cough and a gag. The patient has a weak cough. The patient has a weak gag. She does have positive corneals. Pupils are round 3-4 mm in size and there reactive to light. She may have a preferential gaze looking into the upper visual ugarte. - Labs CBC & Chem 7: 08/10/20 03:39 08/10/20 03:39 Labs: Abnormal Lab Results - Last 24 Hours (Table) 03/04/21 03/04/21 03/04/21 Range/Units 04:10 11:36 17:04 WBC (3.8-10.6) k/uL RBC (3.80-5.40) m/uL Hgb (11.4-16.0) gm/dL Hct (34.0-46.0) % Plt Count (150-450) k/uL Neutrophils # (1.3-7.7) k/uL ABG HCO3 (21-25) mmol/L ABG Total CO2 (19-24) mmol/L ABG O2 Saturation (94-97) % BUN (7-17) mg/dL Glucose (74-99) mg/dL POC Glucose (mg/dL) 115 H 119 H (75-99) mg/dL Calcium (8.4-10.2) mg/dL AST (14-36) U/L ALT (4-34) U/L Alkaline Phosphatase (38-126) U/L Total Protein (6.3-8.2) g/dL Albumin (3.5-5.0) g/dL Procalcitonin 0.88 H (0.02-0.09) ng/mL 08/09/20 08/10/20 08/10/20 Range/Units 23:46 00:28 03:39 WBC 17.7 H (3.8-10.6) k/uL RBC 2.67 L (3.80-5.40) m/uL Hgb 7.9 L (11.4-16.0) gm/dL Hct 25.5 L (34.0-46.0) % Plt Count 617 H (150-450) k/uL Neutrophils # 14.9 H (1.3-7.7) k/uL ABG HCO3 (21-25) mmol/L ABG Total CO2 (19-24) mmol/L ABG O2 Saturation (94-97) % BUN (7-17) mg/dL Glucose (74-99) mg/dL POC Glucose (mg/dL) 133 H 149 H (75-99) mg/dL Calcium (8.4-10.2) mg/dL AST (14-36) U/L ALT (4-34) U/L Alkaline Phosphatase (38-126) U/L Total Protein (6.3-8.2) g/dL Albumin (3.5-5.0) g/dL Procalcitonin (0.02-0.09) ng/mL 08/10/20 08/10/20 08/10/20 Range/Units 03:39 04:23 05:39 WBC (3.8-10.6) k/uL RBC (3.80-5.40) m/uL Hgb (11.4-16.0) gm/dL Hct (34.0-46.0) % Plt Count (150-450) k/uL Neutrophils # (1.3-7.7) k/uL ABG HCO3 27 H (21-25) mmol/L ABG Total CO2 28 H (19-24) mmol/L ABG O2 Saturation 97.5 H (94-97) % BUN 41 H (7-17) mg/dL Glucose 130 H (74-99) mg/dL POC Glucose (mg/dL) 132 H (75-99) mg/dL Calcium 7.9 L (8.4-10.2) mg/dL AST 1374 H (14-36) U/L ALT 1971 H (4-34) U/L Alkaline Phosphatase 138 H (38-126) U/L Total Protein 5.3 L (6.3-8.2) g/dL Albumin 2.8 L (3.5-5.0) g/dL Procalcitonin (0.02-0.09) ng/mL Microbiology - Last 24 Hours (Table) 08/08/20 11:05 Blood Culture Gram Stain - Preliminary Blood Blood Culture - Preliminary Coagulase Negative Staph 08/08/20 20:14 Gram Stain - Preliminary Sputum Sputum Culture - Preliminary 08/08/20 11:05 Blood Culture - Final Blood Assessment and Plan Plan: 1 Status post three-vessel bypass grafting. The patient is postop day #14. The patient remains intubated on mechanical ventilator. This was a post operative course was quite complicated and the patient a neurologic event with left-sided weakness and right sided/study bilateral acute/subacute CVA. The patient had a tracheostomy tube inserted yesterday the patient is postop day #4 post tracheostomy tube insertion and a PEG tube insertion. The patient remains unresponsive . CAT scan of the brain was done yesterday and it showed no acute abnormalities. The patient had no evidence of any hemorrhage. Moderate to moderate diffuse age-related atrophy. Small areas of subacute infarct involving in the right superior cerebellar hemisphere is diminished in size from prior examination. 2 acute hypoxemic respiratory failure and remains on the ventilator because of her recent ischemic CVA. Patient had prolonged respiratory failure due to postop CVA and the patient has a tracheostomy placed yesterday for ongoing respiratory support. Chest x-ray still showing bilateral pulmonary infiltrates and small effusion on the left. Sputum was positive for Klebsiella and the patient is still covered with IV Rocephin. Pro-calcitonin level was nonelevated and the patient is afebrile white cell count is 17. Repeat cultures still pending for now. Tracheostomy tube was repositioned. 3 Postoperative acute/subacute right cerebellar infarct, complicated further by a lleft-sided hemiparesis. Suspected brainstem infarct in combination with a cerebellar infarct causing altered mentation and diminished level of consciousness. 4 Leukocytosis of unclear etiology, white cell count is at 17 5 Remote history of non-small cell lung cancer, with previous lobectomy. 6 Prior history of tobacco use. 7 Mild COPD based on PFTs. 8 Family history of premature coronary artery disease. 9 History of hypertension. 10 Peripheral vascular occlusive disease. 11 Degenerative joint disease. 12 Hyperlipidemia. 13 Chronic insomnia. 14 History of postoperative anemia. 15 metabolic acidosis, recovered 16 paroxysmal atrial fibrillation with rapid ventricular response , back to normal sinus rhythm and the patient was started on long-term anticoagulation with Eliquis. The patient is currently off amiodarone and the patient is receiving metoprolol at a dose of 100 mg by mouth twice a day. 17 shock liver with abnormal LFTs, ultrasound the liver is pending for now LFTs are down trending monitor and ultrasound of the liver showed no acute abnormalities. Plan: Monitor neurologic examination on neurologic status. On today's evaluation there is obvious hemiplegia on the left and the patient is able to withdraw with her right upper extremity and right lower extremity and the patient is demonstrating occasional spontaneous movement. She has [place] eye-opening. Cranial nerves reflexes are all present. She is still not tracking and not following commands Awaiting the results of the repeat sputum sample, still negative for now. The patient is quite is negative staph in the blood and the patient was given a dose of vancomycin Continue IV Rocephin Enteral feeding with vital high protein at the rate of 54 mL an hour which is at goal and the patient is tolerating her treatment Hold Lipitor and amiodarone Continue metoprolol 100 mg by mouth twice daily in combination with Eliquis Monitor mental status Monitor neurologic exam We will continue to follow and make further recommendations based on her clinical status Critical care evaluation, done more than 30 minutes. Time with Patient: Greater than 30
[2020-08-10] MEDS: IPRATROPIUM-ALBUTEROL 3 ML NEB INHALATION PRN ×2 (07:21→10:52)
[2020-08-10] MEDS: ASPIRIN 81 MG PO SCH (08:29)
[2020-08-10] MEDS: SERTRALINE 100 MG TAB PO SCH (08:29)
[2020-08-10] MEDS: METOPROLOL TARTRATE 50 MG TAB PO SCH ×2 (08:29→20:00)
[2020-08-10] MEDS: CHLORHEXIDINE GLUCONATE 15 ML CUP MUCOUS MEM SCH ×2 (08:29→20:01)
[2020-08-10] MEDS: APIXABAN 5 MG TAB PEG/G-TUBE SCH ×2 (08:29→20:01)
[2020-08-10] MEDS: PANTOPRAZOLE 40 MG/10 ML VIAL IVP SCH (08:30)
[2020-08-10] MEDS: VANCOMYCIN 1,500 MG in SODIUM CHLORIDE 0.9% 250 ML IVPB SCH (08:53)
--- NOTE | 2020-08-10 09:23 | XR ---
EXAMINATION TYPE: XR chest 1V portable DATE OF EXAM: 08/10/2020 COMPARISON: Chest x-ray 08/09/2020 HISTORY: Postop coronary artery bypass graft, abnormal chest x-ray TECHNIQUE: Single frontal view of the chest is obtained. FINDINGS: Findings are similar to prior exam. IMPRESSION: Correlate for congestive heart failure, pneumonia, ARDS, effusion not excluded.
--- NOTE | 2020-08-10 09:33 | P.PN ---
Subjective HPI: This is a 75-year-old female past medical history significant for coronary artery disease with previous myocardial infarction and stent placement, peripheral artery disease with lower extremity stenting, lung cancer s/p right lower lobectomy in 2011, hypertension, hyperlipidemia, COPD with previous tobacco dependence quit in 2011. Presented with NSTEMI. She presented to the emergency department at [facility] with complaints of midsternal chest discomfort radiating to her back and down bilateral arms, transferred to [facility]. On 07/22- Patient underwent cardiac catheterization and found to have severe triple-vessel coronary artery disease with significant disease in the proximal LAD, mid LAD, obtuse marginal branch and the right coronary artery in the long segment. Echo revealed normal left ventricular systolic function EF 50-55% with mild aortic stenosis. She underwent coronary artery bypass grafting x 3 vessels, ligation of the left atrial appendage on 07/27. Post-operatively, 07/28, while patient being weaned off sedation, patient was found to have left-sided weakness, deviation of the head to the right side, was not following commands. CT brain revealed acute/subacute ischemic infarction the right cerebellum. Patient is seen and examined this morning around 0815. Patient underwent tracheostomy and PEG tube placement 08/06/20. Overnight, she went into atrial fibrillation with RVR 10 PM. Patient was started on amiodarone drip, started with a bolus and following that she was maintained on 0.5 mg/min. She is on mechanical ventilation and sedated on propofol drip. She is not following any verbal commands. Vent setting AC tidal volume 400 FiO2 40% and PEEP of 5. Laboratory data reviewed, WBC 21.4, Hgb 8.6, Plt 739, Na 137, K 5.3, sCr 0.57, AST 80, ALT 124, Alk Phos 181. 08/08/2020: Patient seen and examined. Attempted to wean sedation and patient able to open eyes however no meaningful movements or interaction. Liver enzymes have been increasing with AST 2995 and ALT 2452, severely elevated from previous 80 and 120. Alk phos 157, total bilirubin 0.8. Amiodarone was discontinued. Heart rates predominantly 100s to 115 in A. fib. White blood cell count remains elevated at 24, hemoglobin 8.4. Increase metoprolol from 50-100 today. 08/09/2020 Patient seen and examined. Patient undergoing spontaneous breathing trial this morning. Remains unresponsive without any response to verbal or noxious stimuli. AST and ALT are somewhat improved at 1417 100 today. CRP noted to be very elevated at 82 and white blood cell count remains elevated at 21. Abdominal ultrasound was performed this morning however pending results. Amiodarone was discontinued yesterday and metoprolol was increased yesterday to 100 mg twice a day. Patient converted to normal sinus rhythm yesterday at around midnight. 08/10/20 Patient seen and examined. Patient has not been receiving any sedation and still remains lethargic and unresponsive. Patient occasionally spontaneously moving her right arm however not making any purposeful movements. She did go back into Afib with HR's 90-low 100's. AST and ALT still elevated at 1319 1900 respectively. White blood cell still elevated at 17.7. Remains on Eliquis 5mg bid, hgb stable. PHYSICAL EXAMINATION HEENT: Mucous membranes moist CHEST EXAMINATION: Bilateral rhonchi, no wheezes or crackles. Breath sounds are equal bilaterally HEART EXAMINATION: Irregular rate and rhythm, S1, S2 heard. No murmurs, gallops or rub. Inscision clean dry intact ABDOMEN: Soft, Positive bowel sounds. EXTREMITIES: 2+ peripheral pulses, 2+ pitting edema, LUE PICC SKIN: No rashes NEUROLOGIC: Facial asymmetry, left sided weakness. Pupils are equal. Unable to elicit a motor response. Not following commands. ASSESSMENT NSTEMI, s/p three vessel CABG Respiratory failure, requiring tracheostomy and PEG tube placement Cerebrovascular accident post-operatively after CABG Paroxysmal atrial fibrillation after CABG, currently Afib History of coronary artery disease with previous myocardial infarction and stent placement Peripheral artery disease with lower extremity stenting History of Hypertension Hyperlipidemia History of lung cancer Acute liver injury PLAN -Amiodarone was discontinued secondary to acute liver injury, GI recommendations appreciated, ultrasound unrevealing. -Continue oral anticoagulation -Continue Aspirin and Statin -Continue to monitor patient's neurologic status, supportive care. Prognosis is guarded. -Patient went back into Afib however predominantly rate controlled on Lopressor 100 mg twice a day. Mild tachycardia expected with sedation weaning. Continue current treatment. Objective - Vital Signs Vital signs: Vital Signs Temp 98.6 F 08/10/20 08:00 Pulse 105 H 08/10/20 09:00 Resp 14 08/10/20 09:00 BP 131/70 08/10/20 09:00 Pulse Ox 95 08/10/20 09:00 Intake & Output 08/09/20 08/10/20 08/10/20 18:59 06:59 18:59 Intake Total 1692 1338 402 Output Total 745 765 250 Balance 947 573 152 Weight 93.3 kg Intake: IV 600 600 150 Sodium Chloride 0.45% 1, 600 600 150 000 ml @ 50 mls/hr IV . Q20H [facility] Rx#:[id number] Intake, IV Titration 600 Amount Vancomycin 1,750 mg In 500 Sodium Chloride 0.9% 500 ml 500 ml @ 167 mls/hr IVPB ONCE ONE Rx#: [id number] levETIRAcetam IV 1,500 mg 100 In Saline 1 100ml.bag @ 400 mls/hr IVPB ONCE STA Rx#:[id number] Tube Feeding 432 648 162 Other 60 90 90 Output: Urine 745 765 250 Other: Voiding Method Indwelling Catheter Indwelling Catheter ABP, PAP, CO, CI - Last Documented Arterial Blood Pressure 113/55 Pulmonary Artery Pressure 40/20 Cardiac Output 4.3 Cardiac Index 2.2 - Labs CBC & Chem 7: 08/10/20 03:39 08/10/20 03:39 Labs: Abnormal Lab Results - Last 24 Hours (Table) 08/09/20 08/09/20 08/09/20 Range/Units 04:10 11:36 17:04 WBC (3.8-10.6) k/uL RBC (3.80-5.40) m/uL Hgb (11.4-16.0) gm/dL Hct (34.0-46.0) % Plt Count (150-450) k/uL Neutrophils # (1.3-7.7) k/uL ABG HCO3 (21-25) mmol/L ABG Total CO2 (19-24) mmol/L ABG O2 Saturation (94-97) % BUN (7-17) mg/dL Glucose (74-99) mg/dL POC Glucose (mg/dL) 115 H 119 H (75-99) mg/dL Calcium (8.4-10.2) mg/dL AST (14-36) U/L ALT (4-34) U/L Alkaline Phosphatase (38-126) U/L Total Protein (6.3-8.2) g/dL Albumin (3.5-5.0) g/dL Procalcitonin 0.88 H (0.02-0.09) ng/mL 08/09/20 08/10/20 08/10/20 Range/Units 23:46 00:28 03:39 WBC 17.7 H (3.8-10.6) k/uL RBC 2.67 L (3.80-5.40) m/uL Hgb 7.9 L (11.4-16.0) gm/dL Hct 25.5 L (34.0-46.0) % Plt Count 617 H (150-450) k/uL Neutrophils # 14.9 H (1.3-7.7) k/uL ABG HCO3 (21-25) mmol/L ABG Total CO2 (19-24) mmol/L ABG O2 Saturation (94-97) % BUN (7-17) mg/dL Glucose (74-99) mg/dL POC Glucose (mg/dL) 133 H 149 H (75-99) mg/dL Calcium (8.4-10.2) mg/dL AST (14-36) U/L ALT (4-34) U/L Alkaline Phosphatase (38-126) U/L Total Protein (6.3-8.2) g/dL Albumin (3.5-5.0) g/dL Procalcitonin (0.02-0.09) ng/mL 08/10/20 08/10/20 08/10/20 Range/Units 03:39 04:23 05:39 WBC (3.8-10.6) k/uL RBC (3.80-5.40) m/uL Hgb (11.4-16.0) gm/dL Hct (34.0-46.0) % Plt Count (150-450) k/uL Neutrophils # (1.3-7.7) k/uL ABG HCO3 27 H (21-25) mmol/L ABG Total CO2 28 H (19-24) mmol/L ABG O2 Saturation 97.5 H (94-97) % BUN 41 H (7-17) mg/dL Glucose 130 H (74-99) mg/dL POC Glucose (mg/dL) 132 H (75-99) mg/dL Calcium 7.9 L (8.4-10.2) mg/dL AST 1374 H (14-36) U/L ALT 1971 H (4-34) U/L Alkaline Phosphatase 138 H (38-126) U/L Total Protein 5.3 L (6.3-8.2) g/dL Albumin 2.8 L (3.5-5.0) g/dL Procalcitonin (0.02-0.09) ng/mL Microbiology - Last 24 Hours (Table) 08/08/20 11:05 Blood Culture Gram Stain - Preliminary Blood Blood Culture - Preliminary Coagulase Negative Staph 08/08/20 20:14 Gram Stain - Preliminary Sputum Sputum Culture - Preliminary 08/08/20 11:05 Blood Culture - Final Blood
--- NOTE | 2020-08-10 11:31 | P.PN ---
Subjective Progress Note Date: 08/10/20 CHIEF COMPLAINT: Malnutrition HISTORY OF PRESENT ILLNESS: Patient seen and examined with Dr. Chavarria. Ramirez whiting is in the ICU. She is status post PEG tube placement by Dr. Chavarria on 08/06/2020. Patient is tolerating tube feedings. She had 50ml residual from tube feeding. She is status post tracheostomy placement by Dr. Alan. Patient is intubated. She has had elevated LFTs. She was evaluated by GI service who thought it was medication induced. Medications such as amiodarone and Lipitor were discontinued. Abdominal ultrasound showing no significant abnormality. Patient did have one episode of vomiting yesterday. And she has had a bowel movement. Afebrile WBC 17.7 Hgb 7.9 PHYSICAL EXAM: VITAL SIGNS: Reviewed. GENERAL: Well-developed in no acute distress. HEENT: No sclera icterus. Extraocular movements grossly intact. Moist buccal mucosa. Head is atraumatic, normocephalic. ABDOMEN: Soft. Nondistended. Nontender. PEG tube site clean dry and intact NEUROLOGIC: Patient is intubated. ASSESSMENT: 1. Moderate protein calorie malnutrition status post PEG tube placement PLAN: -Continue supportive care -Titrate PEG tube feedings per dietitian recommendations Physician Shingler note has been reviewed by physician. Signing provider agrees with the documented findings, assessment, and plan of care. Objective - Vital Signs Vital signs: Vital Signs Temp 98.6 F 08/10/20 08:00 Pulse 85 08/10/20 11:08 Resp 24 08/10/20 10:00 BP 149/104 08/10/20 10:00 Pulse Ox 96 08/10/20 10:00 Intake & Output 08/09/20 08/10/20 08/10/20 18:59 06:59 18:59 Intake Total 1692 1338 506 Output Total 745 765 335 Balance 947 573 171 Weight 93.3 kg Intake: IV 600 600 200 Sodium Chloride 0.45% 1, 600 600 200 000 ml @ 50 mls/hr IV . Q20H [facility] Rx#:[id number] Intake, IV Titration 600 Amount Vancomycin 1,750 mg In 500 Sodium Chloride 0.9% 500 ml 500 ml @ 167 mls/hr IVPB ONCE ONE Rx#: [id number] levETIRAcetam IV 1,500 mg 100 In Saline 1 100ml.bag @ 400 mls/hr IVPB ONCE STA Rx#:[id number] Tube Feeding 432 648 216 Other 60 90 90 Output: Urine 745 765 335 Other: Voiding Method Indwelling Catheter Indwelling Catheter Indwelling Catheter ABP, PAP, CO, CI - Last Documented Arterial Blood Pressure 113/55 Pulmonary Artery Pressure 40/20 Cardiac Output 4.3 Cardiac Index 2.2 - Labs CBC & Chem 7: 08/10/20 03:39 08/10/20 03:39 Labs: Abnormal Lab Results - Last 24 Hours (Table) 08/09/20 08/09/20 08/09/20 Range/Units 04:10 11:36 17:04 WBC (3.8-10.6) k/uL RBC (3.80-5.40) m/uL Hgb (11.4-16.0) gm/dL Hct (34.0-46.0) % Plt Count (150-450) k/uL Neutrophils # (1.3-7.7) k/uL ABG HCO3 (21-25) mmol/L ABG Total CO2 (19-24) mmol/L ABG O2 Saturation (94-97) % BUN (7-17) mg/dL Glucose (74-99) mg/dL POC Glucose (mg/dL) 115 H 119 H (75-99) mg/dL Calcium (8.4-10.2) mg/dL AST (14-36) U/L ALT (4-34) U/L Alkaline Phosphatase (38-126) U/L Total Protein (6.3-8.2) g/dL Albumin (3.5-5.0) g/dL Procalcitonin 0.88 H (0.02-0.09) ng/mL 08/09/20 08/10/20 08/10/20 Range/Units 23:46 00:28 03:39 WBC 17.7 H (3.8-10.6) k/uL RBC 2.67 L (3.80-5.40) m/uL Hgb 7.9 L (11.4-16.0) gm/dL Hct 25.5 L (34.0-46.0) % Plt Count 617 H (150-450) k/uL Neutrophils # 14.9 H (1.3-7.7) k/uL ABG HCO3 (21-25) mmol/L ABG Total CO2 (19-24) mmol/L ABG O2 Saturation (94-97) % BUN (7-17) mg/dL Glucose (74-99) mg/dL POC Glucose (mg/dL) 133 H 149 H (75-99) mg/dL Calcium (8.4-10.2) mg/dL AST (14-36) U/L ALT (4-34) U/L Alkaline Phosphatase (38-126) U/L Total Protein (6.3-8.2) g/dL Albumin (3.5-5.0) g/dL Procalcitonin (0.02-0.09) ng/mL 08/10/20 08/10/20 08/10/20 Range/Units 03:39 04:23 05:39 WBC (3.8-10.6) k/uL RBC (3.80-5.40) m/uL Hgb (11.4-16.0) gm/dL Hct (34.0-46.0) % Plt Count (150-450) k/uL Neutrophils # (1.3-7.7) k/uL ABG HCO3 27 H (21-25) mmol/L ABG Total CO2 28 H (19-24) mmol/L ABG O2 Saturation 97.5 H (94-97) % BUN 41 H (7-17) mg/dL Glucose 130 H (74-99) mg/dL POC Glucose (mg/dL) 132 H (75-99) mg/dL Calcium 7.9 L (8.4-10.2) mg/dL AST 1374 H (14-36) U/L ALT 1971 H (4-34) U/L Alkaline Phosphatase 138 H (38-126) U/L Total Protein 5.3 L (6.3-8.2) g/dL Albumin 2.8 L (3.5-5.0) g/dL Procalcitonin (0.02-0.09) ng/mL Microbiology - Last 24 Hours (Table) 08/08/20 20:14 Gram Stain - Preliminary Sputum Sputum Culture - Preliminary Gram Neg Bacilli 08/08/20 11:05 Blood Culture Gram Stain - Preliminary Blood Blood Culture - Preliminary Coagulase Negative Staph 08/08/20 11:05 Blood Culture - Final Blood
[2020-08-10 11:48] LABS: Glucose,Whole Blood 136 mg/dL (75-99)
--- NOTE | 2020-08-10 12:27 | P.PN ---
Subjective Progress Note Date: 08/10/20 Principal diagnosis: elevated LFTs This 75-year-old female who presented to the hospital with chest pain, underwent a cardiac catheterization which showed three-vessel disease. Patient then underwent a CABG on 07/27/20. She was noted to have significant increase in her transaminases, likely medication induced. Lipitor and amiodarone have been discontinued. Liver enzymes are trending down today. No acute changes with patient overnight. Ultrasound of abdomen shows no evident mass or dilated intra-or extrahepatic biliary duct, exam is somewhat limited. Significant abnormality is evident. Objective - Vital Signs Vital signs: Vital Signs Temp 98.6 F 08/10/20 08:00 Pulse 85 08/10/20 11:08 Resp 24 08/10/20 10:00 BP 149/104 08/10/20 10:00 Pulse Ox 96 08/10/20 10:00 Intake & Output 08/09/20 08/10/20 08/10/20 18:59 06:59 18:59 Intake Total 1692 1338 506 Output Total 745 765 335 Balance 947 573 171 Weight 93.3 kg Intake: IV 600 600 200 Sodium Chloride 0.45% 1, 600 600 200 000 ml @ 50 mls/hr IV . Q20H [facility] Rx#:[id number] Intake, IV Titration 600 Amount Vancomycin 1,750 mg In 500 Sodium Chloride 0.9% 500 ml 500 ml @ 167 mls/hr IVPB ONCE ONE Rx#: [id number] levETIRAcetam IV 1,500 mg 100 In Saline 1 100ml.bag @ 400 mls/hr IVPB ONCE STA Rx#:[id number] Tube Feeding 432 648 216 Other 60 90 90 Output: Urine 745 765 335 Other: Voiding Method Indwelling Catheter Indwelling Catheter Indwelling Catheter ABP, PAP, CO, CI - Last Documented Arterial Blood Pressure 113/55 Pulmonary Artery Pressure 40/20 Cardiac Output 4.3 Cardiac Index 2.2 - Exam General appearance: The patient isnonresponsive. Has tracheostomy HET: Head is normocephalic and atraumatic. Upstroke deviated gaze to the right. Neck: Supple without lymphadenopathy. Trachea midline. Heart: S1 S2. Regular rate and rhythm. Lungs: No crackles or wheezes are heard. Mechanical ventilation Abdomen: Soft, obese, nontender, nondistended. Extremities: Bilateral lower extremities with edema with compression stockings. Neurological: Nonverbal, unable to follow commands. - Labs CBC & Chem 7: 08/10/20 03:39 08/10/20 03:39 Labs: Abnormal Lab Results - Last 24 Hours (Table) 08/09/20 08/09/20 08/09/20 Range/Units 04:10 11:36 17:04 WBC (3.8-10.6) k/uL RBC (3.80-5.40) m/uL Hgb (11.4-16.0) gm/dL Hct (34.0-46.0) % Plt Count (150-450) k/uL Neutrophils # (1.3-7.7) k/uL ABG HCO3 (21-25) mmol/L ABG Total CO2 (19-24) mmol/L ABG O2 Saturation (94-97) % BUN (7-17) mg/dL Glucose (74-99) mg/dL POC Glucose (mg/dL) 115 H 119 H (75-99) mg/dL Calcium (8.4-10.2) mg/dL AST (14-36) U/L ALT (4-34) U/L Alkaline Phosphatase (38-126) U/L Total Protein (6.3-8.2) g/dL Albumin (3.5-5.0) g/dL Procalcitonin 0.88 H (0.02-0.09) ng/mL 08/09/20 08/10/20 08/10/20 Range/Units 23:46 00:28 03:39 WBC 17.7 H (3.8-10.6) k/uL RBC 2.67 L (3.80-5.40) m/uL Hgb 7.9 L (11.4-16.0) gm/dL Hct 25.5 L (34.0-46.0) % Plt Count 617 H (150-450) k/uL Neutrophils # 14.9 H (1.3-7.7) k/uL ABG HCO3 (21-25) mmol/L ABG Total CO2 (19-24) mmol/L ABG O2 Saturation (94-97) % BUN (7-17) mg/dL Glucose (74-99) mg/dL POC Glucose (mg/dL) 133 H 149 H (75-99) mg/dL Calcium (8.4-10.2) mg/dL AST (14-36) U/L ALT (4-34) U/L Alkaline Phosphatase (38-126) U/L Total Protein (6.3-8.2) g/dL Albumin (3.5-5.0) g/dL Procalcitonin (0.02-0.09) ng/mL 08/10/20 08/10/20 08/10/20 Range/Units 03:39 04:23 05:39 WBC (3.8-10.6) k/uL RBC (3.80-5.40) m/uL Hgb (11.4-16.0) gm/dL Hct (34.0-46.0) % Plt Count (150-450) k/uL Neutrophils # (1.3-7.7) k/uL ABG HCO3 27 H (21-25) mmol/L ABG Total CO2 28 H (19-24) mmol/L ABG O2 Saturation 97.5 H (94-97) % BUN 41 H (7-17) mg/dL Glucose 130 H (74-99) mg/dL POC Glucose (mg/dL) 132 H (75-99) mg/dL Calcium 7.9 L (8.4-10.2) mg/dL AST 1374 H (14-36) U/L ALT 1971 H (4-34) U/L Alkaline Phosphatase 138 H (38-126) U/L Total Protein 5.3 L (6.3-8.2) g/dL Albumin 2.8 L (3.5-5.0) g/dL Procalcitonin (0.02-0.09) ng/mL Microbiology - Last 24 Hours (Table) 08/08/20 20:14 Gram Stain - Preliminary Sputum Sputum Culture - Preliminary Gram Neg Bacilli 08/08/20 11:05 Blood Culture Gram Stain - Preliminary Blood Blood Culture - Preliminary Coagulase Negative Staph 08/08/20 11:05 Blood Culture - Final Blood Assessment and Plan Assessment: 1. Symptomatic right carotid stenosis with discordant findings from CT angiogram and carotid ultrasound 2. New bilateral cerebellar ischemic stroke right greater than left 3. Coronary artery disease status post cardiac catheterization and CABG on 07/27/2020 4. History of peripheral arterial disease with lower extremity stenting 5. History of lung cancer status post right lower lobectomy 6. Hypertension 7. Hyperlipidemia 8. Tobacco abuse (1) Elevated LFTs Narrative/Plan: The lady who was admitted to the hospital on 07/21/2020 with gradual elevation in her serum transaminases for the last 2 weeks duration. There was significant elevation noted yesterday in her serum transaminases, with no prior history of chronic liver disease. Her liver enzymes were normal at the time of admission, which makes it very likely dealing with a medication-induced hepatitis. The entire list of medications that the patient has receded from the time of c oronary artery bypass surgery until now appears that the likely cause would be either amiodarone, statins or antibiotics. The amiodarone and statins have been discontinued yesterday. She continues to remain on ceftriaxone. There've been no documented evidence of hypo-tension to consider ischemic hepatitis. Viral hepatitis studies were ordered and negative for A, B, and C. Abdominal ultrasound reviewed, no acute findings. Arm transaminases are trending down. Current Visit: Yes Status: Acute Code(s): R79.89 - OTHER SPECIFIED ABNORMAL FINDINGS OF BLOOD CHEMISTRY SNOMED Code(s): 613125337 Plan: 1. Supportive care 2. Daily CMP 3. Continue to hold statin and amiodarone 4. Avoid hepatotoxic agents 5. Hepatitis panel ordered and reviewed, negative 3 6. Abdominal ultrasound ordered and reviewed Thank you for this consultation, we will continue to follow Dr. Galvez I agree with the dictator's note, documented as a scribe by Mariza White.
[2020-08-10] MEDS ORDERED: FUROSEMIDE 10 MG/ML 2 ML VIAL IV ONE (13:24)
--- NOTE | 2020-08-10 13:27 | P.PN ---
Subjective Progress Note Date: 08/10/20 She was seen at bedside and her condition is the same today compared to yesterday. She continues to be off sedation > 3 days. AST and ALT is trending down. Last AST is 1374 and the ALT last 1971. The CK levels for 1 which is normal. Her glucose level has been in the range of 130s to 140s. Her white blood cell is 17.7 which is trending down last time was 21.2. Objective - Vital Signs Vital signs: Vital Signs Temp 100 F H 08/10/20 12:00 Pulse 122 H 08/10/20 12:00 Resp 24 08/10/20 12:00 BP 113/69 08/10/20 12:00 Pulse Ox 95 08/10/20 12:00 Intake & Output 08/09/20 08/10/20 08/10/20 18:59 06:59 18:59 Intake Total 1692 1338 744 Output Total 745 765 460 Balance 947 573 284 Weight 93.3 kg Intake: IV 600 600 300 Sodium Chloride 0.45% 1, 600 600 300 000 ml @ 50 mls/hr IV . Q20H [facility] Rx#:[id number] Intake, IV Titration 600 Amount Vancomycin 1,750 mg In 500 Sodium Chloride 0.9% 500 ml 500 ml @ 167 mls/hr IVPB ONCE ONE Rx#: [id number] levETIRAcetam IV 1,500 mg 100 In Saline 1 100ml.bag @ 400 mls/hr IVPB ONCE STA Rx#:[id number] Tube Feeding 432 648 324 Other 60 90 120 Output: Urine 745 765 460 Other: Voiding Method Indwelling Catheter Indwelling Catheter Indwelling Catheter ABP, PAP, CO, CI - Last Documented Arterial Blood Pressure 113/55 Pulmonary Artery Pressure 40/20 Cardiac Output 4.3 Cardiac Index 2.2 - Exam GENERAL: The patient is lying in bed and is not in acute distress. LUNG: Trach and on ventilator (breathing over the vent. NEUROLOGICAL: Higher mental function: GCS (11): E4, V1, M6. The patient is awake and not following commands or attempt to communicate. Cranial nerves: The pupils are round, equal 3mm bilaterally and reactive to light. Her primary gaze is midline bilaterally. No facial weakness noted bilaterally. Rest of cranial nerves unable to assess. Motor: Gait is unable to assess. The strength is moving the right upper extremity sponatenously above gravity. With painful stimli she will withdrawl right upper and right lower extremity. Decrease tone throughout. Normal bulk. Cerebellum: Unable to assess. Sensation:Could not assess light touch. But to painful stimuli she withdrawls the right upper and right lower extremity with some withdrawl of left lower extreimty (right better than left). Reflexes (right/left): 0 throughout. Plantars is mute bilaterally. - Labs CBC & Chem 7: 08/10/20 03:39 08/10/20 03:39 Labs: Abnormal Lab Results - Last 24 Hours (Table) 08/09/20 08/09/20 08/09/20 Range/Units 04:10 17:04 23:46 WBC (3.8-10.6) k/uL RBC (3.80-5.40) m/uL Hgb (11.4-16.0) gm/dL Hct (34.0-46.0) % Plt Count (150-450) k/uL Neutrophils # (1.3-7.7) k/uL ABG HCO3 (21-25) mmol/L ABG Total CO2 (19-24) mmol/L ABG O2 Saturation (94-97) % BUN (7-17) mg/dL Glucose (74-99) mg/dL POC Glucose (mg/dL) 119 H 133 H (75-99) mg/dL Calcium (8.4-10.2) mg/dL AST (14-36) U/L ALT (4-34) U/L Alkaline Phosphatase (38-126) U/L Total Protein (6.3-8.2) g/dL Albumin (3.5-5.0) g/dL Procalcitonin 0.88 H (0.02-0.09) ng/mL 08/10/20 08/10/20 08/10/20 Range/Units 00:28 03:39 03:39 WBC 17.7 H (3.8-10.6) k/uL RBC 2.67 L (3.80-5.40) m/uL Hgb 7.9 L (11.4-16.0) gm/dL Hct 25.5 L (34.0-46.0) % Plt Count 617 H (150-450) k/uL Neutrophils # 14.9 H (1.3-7.7) k/uL ABG HCO3 (21-25) mmol/L ABG Total CO2 (19-24) mmol/L ABG O2 Saturation (94-97) % BUN 41 H (7-17) mg/dL Glucose 130 H (74-99) mg/dL POC Glucose (mg/dL) 149 H (75-99) mg/dL Calcium 7.9 L (8.4-10.2) mg/dL AST 1374 H (14-36) U/L ALT 1971 H (4-34) U/L Alkaline Phosphatase 138 H (38-126) U/L Total Protein 5.3 L (6.3-8.2) g/dL Albumin 2.8 L (3.5-5.0) g/dL Procalcitonin (0.02-0.09) ng/mL 08/10/20 08/10/20 08/10/20 Range/Units 04:23 05:39 11:46 WBC (3.8-10.6) k/uL RBC (3.80-5.40) m/uL Hgb (11.4-16.0) gm/dL Hct (34.0-46.0) % Plt Count (150-450) k/uL Neutrophils # (1.3-7.7) k/uL ABG HCO3 27 H (21-25) mmol/L ABG Total CO2 28 H (19-24) mmol/L ABG O2 Saturation 97.5 H (94-97) % BUN (7-17) mg/dL Glucose (74-99) mg/dL POC Glucose (mg/dL) 132 H 136 H (75-99) mg/dL Calcium (8.4-10.2) mg/dL AST (14-36) U/L ALT (4-34) U/L Alkaline Phosphatase (38-126) U/L Total Protein (6.3-8.2) g/dL Albumin (3.5-5.0) g/dL Procalcitonin (0.02-0.09) ng/mL Microbiology - Last 24 Hours (Table) 08/08/20 20:14 Gram Stain - Preliminary Sputum Sputum Culture - Preliminary Gram Neg Bacilli 08/08/20 11:05 Blood Culture Gram Stain - Preliminary Blood Blood Culture - Preliminary Coagulase Negative Staph Assessment and Plan Assessment: This is a 75-year-old woman with multiple medical problems the underwent coron bonnie artery bypass grafting yesterday (07/27/2020) for her severe triple coronary artery disease. Today while the sedation was off was noted that she had left- sided weakness is CT head was done and showed acute to subacute area infarct in the right cerebellar. Subacute to chronic with Right cerebellar infarct and right parietal-occipital (seem more chronic) with left hemiplegia The strokes were noted post CABG 07/27/2020. Patient probably had showers of emboli from cardiac source. Stroke likely cardioembolic. Altered mental status probably due to ischemic encephalopathy, with superimposed toxic metabolic causes. Bilateral ICA stenosis > 75% per CTA, however no significant stenosis per carotid Doppler. Leukocytosis of unclear etiology Elevated LFT's--trending down Anemia Acute hypoxic respiratory failure and remains on a ventilator status post trach and continuing requiring respiratory support Peripheral arterial disease with lower extremity stenting History of lung cancer status post right lower lobectomy Hyperlipidemia Hypertension Hyperlipidemia Previous tobacco use Plan: Currently on ASA 81mg daily for secondary stroke prophylaxis. High dose statin is held since patient has elevated LFT's. Patient is on Eliquis 5 mg 1 tablet twice a day for patient's atrial fibrillation Patient is on Keppra 500 mg IV once every 12 hours as a seizure prophylaxis. CK level is 41 (normal). Currently the patient is on vancomycin 1500 one tablet every 12 hours and ceftriaxone 1 g every 24 hours only defer the management to ID team. We'll defer the rest of the medical management per the primary team as well as ICU team. I had the patient more than a week ago and after coming back there is no improvement in her condition. The patient's quality of life seems poor. She'll likely be dependent on PEG tube and the basic needs (bathing, feeding etc). Thi s was discussed with the patient's son last on 08/09/2020. The plan is discussed with the patient's nurse. Will follow-up with the patient sporadically. Yamil Luong MD Neuro-Hospitalist Time with Patient: Less than 30
--- NOTE | 2020-08-10 13:40 | P.PN ---
Subjective Progress Note Date: 08/10/20 Principal diagnosis: Triple-vessel coronary artery disease, unstable angina. Past medical history significant for coronary artery disease with previous myocardial infarction and stent placement, peripheral arterial disease with lower extremity stenting, lung cancer status post right lower lobectomy in 2011, hypertension, hyperlipidemia, COPD with previous tobacco dependence, anxiety/depression, family history of premature coronary artery disease with 2 of her sons having had coronary artery bypass grafting surgery, significant plaque formation more than 75% stenosis at the origins of both internal and external carotid arteries bilaterally on CTA. POD #14 coronary artery bypass grafting 3 vessels, left internal mammary artery to the left anterior descending artery, a reverse greater saphenous vein graft to the obtuse marginal artery, a reverse greater saphenous vein graft to the posterior descending artery, endoscopic harvesting of the right greater saphenous vein, ligation of the left atrial appendage using a 35 mm AtriClip, epi-aortic ultrasound and intraoperative transesophageal echocardiogram. POD #3 tracheostomy tube placement #[address] Alan. POD #3 EGD with her cutaneous endoscopic gastrostomy tube placement by Dr. Chavarria. Postoperative acute blood loss anemia, expected given hemodilution and cardiopulmonary bypass pump. Postoperative right acute/subacute cerebellar infarct on brain CT, unexpected, although possible complication of any open heart surgery, especially given patient's known history of significant arterial disease. Prolonged mechanical ventilation, unexpected, secondary to acute stroke. Paroxysmal atrial fibrillation, known common occurrence after open heart surgery. The patient is seen in follow-up today 08/10/2020 at her bedside in the intensive care unit. Her trach remains midline and intact with mechanical ventilator support. Current mechanical ventilator settings are as follows assist control 16, tidal volume 450, FiO2 40% and a PEEP of 5. ABG results this morning show a pH is 7.44, pCO2 40, pO2 86, HCO3 27, oxygen saturation 97.5, and a base excess 2.5. The patient remained afebrile in the last 24 hours. She remains hemodynamically stable and is currently on no inotropic or pressor support. She seems to be more awake this morning opening up her eyes and moving her right arm although not purposefully. No movement to her left extremities. She is not following any verbal commands at this time. She does withdraw from painful stimuli to all 4 extremities and grimaces. PEG tube remains in place with vital high-protein to feeding infusing at goal rate of 54 mL per hour. Laboratory results show a WBC count trending down at 17.7, hemoglobin 7.9, hematocrit 25.5, platelets 617, sodium 138, potassium 3.5, BUN 41, creatinine 0.58, and her liver enzymes are trending down as her AST is 1374 and her ALT is 1971. Preliminary blood culture results from 08/08/2020 showing coagulase-negative staph preliminary and preliminary sputum culture results are showing gram-negative bacilli. She remains on Rocephin and vancomycin for antibiotic coverage which is managed by infectious disease. CAT scan of the brain was completed yesterday which showed no acute intracranial hemorrhage or midline shift. Mild to moderate diffuse age-related cerebral atrophy and moderate to advanced chronic small vessel ischemic change. Small area of evolving subacute infarct involving the right superior cerebellar hemisphere diminished in size from prior study suggesting some interval salvage of prior diminished perfusion brain parenchyma. Subacute or old posterior watershed infarct redemonstrated. Objective - Vital Signs Vital signs: Vital Signs Temp 98.6 F 08/10/20 08:00 Pulse 85 08/10/20 11:08 Resp 24 08/10/20 10:00 BP 149/104 08/10/20 10:00 Pulse Ox 96 08/10/20 10:00 Intake & Output 08/09/20 08/10/20 08/10/20 18:59 06:59 18:59 Intake Total 1692 1338 506 Output Total 745 765 335 Balance 947 573 171 Weight 93.3 kg Intake: IV 600 600 200 Sodium Chloride 0.45% 1, 600 600 200 000 ml @ 50 mls/hr IV . Q20H [facility] Rx#:[id number] Intake, IV Titration 600 Amount Vancomycin 1,750 mg In 500 Sodium Chloride 0.9% 500 ml 500 ml @ 167 mls/hr IVPB ONCE ONE Rx#: [id number] levETIRAcetam IV 1,500 mg 100 In Saline 1 100ml.bag @ 400 mls/hr IVPB ONCE STA Rx#:[id number] Tube Feeding 432 648 216 Other 60 90 90 Output: Urine 745 765 335 Other: Voiding Method Indwelling Catheter Indwelling Catheter Indwelling Catheter ABP, PAP, CO, CI - Last Documented Arterial Blood Pressure 113/55 Pulmonary Artery Pressure 40/20 Cardiac Output 4.3 Cardiac Index 2.2 - Exam The patient remains with mechanical ventilator support, tracheostomy tube midline and in place. Her sedation has been on hold for around 72 hours. She seems to be more awake this morning, moving her right upper extremity, although not following any verbal commands. Opens eyes with verbal stimuli. Left sided extremities flaccid. - Constitutional General appearance: Present: no acute distress, obese - EENT EENT Comment(s): Scleral edema. Eyes: Present: normal appearance. Absent: scleral icterus - Neck Details: Neck supple, no JVD, no lymphadenopathy. Tracheostomy tube midline and in place. - Respiratory Details: Lung sounds with scattered rhonchi throughout. Regulator Mechanic bilateral bases. Respirations are symmetrical and nonlabored with mechanical ventilator support. Current mechanical ventilator settings are as follows, assist control 16, TV 450, FiO2 40% and a PEEP of 5. - Cardiovascular Details: Irregular rhythm and tachycardic rate. S1 and S2 present, negative for S3, gallop or murmur. Sternum is stable. Bedside telemetry showing atrial fibrillation heart rate 101 BPM. Generalized +1 edema. Knee-high DEBI hose and sequential compression devices in place to her bilateral lower extremities. - Gastrointestinal Gastrointestinal Comment(s): Abdomen is soft, nondistended and nontender. Active bowel sounds present in all 4 abdominal quadrants. No guarding or rigidity. No organomegaly appreciated. Left upper quadrant PEG tube in place with continuous tube feedings infusing at goal rate of 54 mL per hour of vital high-protein. - Genitourinary Genitourinary Comment(s): Da Silva catheter for accurate I&O. Draining clear yellow urine with 455 mL output in the last 8 hours. - Integumentary Integumentary Comment(s): Skin is warm and dry. No clubbing or cyanosis is present. Midline sternal incision is clean, dry and approximated. No drainage or redness is present. Right lower extremity EVH site is clean, dry and approximated. No drainage redness is present. - Neurologic Neurologic Comment(s): The patient is awake with her eyes open. Not following any simple verbal commands. Does not track with her eyes. Moving her right upper extremity, does try to withdrawal from noxious stimuli. Left upper extremity flaccid. Does removed from noxious stimuli to all 4 extremities. - Psychiatric Psychiatric Comment(s): Unable to accurately assess at this time. Not following any verbal commands. - Allied health notes Allied health notes reviewed: nursing - Labs CBC & Chem 7: 08/10/20 03:39 08/10/20 03:39 Labs: Abnormal Lab Results - Last 24 Hours (Table) 08/09/20 08/09/20 08/09/20 Range/Units 04:10 17:04 23:46 WBC (3.8-10.6) k/uL RBC (3.80-5.40) m/uL Hgb (11.4-16.0) gm/dL Hct (34.0-46.0) % Plt Count (150-450) k/uL Neutrophils # (1.3-7.7) k/uL ABG HCO3 (21-25) mmol/L ABG Total CO2 (19-24) mmol/L ABG O2 Saturation (94-97) % BUN (7-17) mg/dL Glucose (74-99) mg/dL POC Glucose (mg/dL) 119 H 133 H (75-99) mg/dL Calcium (8.4-10.2) mg/dL AST (14-36) U/L ALT (4-34) U/L Alkaline Phosphatase (38-126) U/L Total Protein (6.3-8.2) g/dL Albumin (3.5-5.0) g/dL Procalcitonin 0.88 H (0.02-0.09) ng/mL 08/10/20 08/10/20 08/10/20 Range/Units 00:28 03:39 03:39 WBC 17.7 H (3.8-10.6) k/uL RBC 2.67 L (3.80-5.40) m/uL Hgb 7.9 L (11.4-16.0) gm/dL Hct 25.5 L (34.0-46.0) % Plt Count 617 H (150-450) k/uL Neutrophils # 14.9 H (1.3-7.7) k/uL ABG HCO3 (21-25) mmol/L ABG Total CO2 (19-24) mmol/L ABG O2 Saturation (94-97) % BUN 41 H (7-17) mg/dL Glucose 130 H (74-99) mg/dL POC Glucose (mg/dL) 149 H (75-99) mg/dL Calcium 7.9 L (8.4-10.2) mg/dL AST 1374 H (14-36) U/L ALT 1971 H (4-34) U/L Alkaline Phosphatase 138 H (38-126) U/L Total Protein 5.3 L (6.3-8.2) g/dL Albumin 2.8 L (3.5-5.0) g/dL Procalcitonin (0.02-0.09) ng/mL 08/10/20 08/10/20 08/10/20 Range/Units 04:23 05:39 11:46 WBC (3.8-10.6) k/uL RBC (3.80-5.40) m/uL Hgb (11.4-16.0) gm/dL Hct (34.0-46.0) % Plt Count (150-450) k/uL Neutrophils # (1.3-7.7) k/uL ABG HCO3 27 H (21-25) mmol/L ABG Total CO2 28 H (19-24) mmol/L ABG O2 Saturation 97.5 H (94-97) % BUN (7-17) mg/dL Glucose (74-99) mg/dL POC Glucose (mg/dL) 132 H 136 H (75-99) mg/dL Calcium (8.4-10.2) mg/dL AST (14-36) U/L ALT (4-34) U/L Alkaline Phosphatase (38-126) U/L Total Protein (6.3-8.2) g/dL Albumin (3.5-5.0) g/dL Procalcitonin (0.02-0.09) ng/mL Microbiology - Last 24 Hours (Table) 08/08/20 20:14 Gram Stain - Preliminary Sputum Sputum Culture - Preliminary Gram Neg Bacilli 08/08/20 11:05 Blood Culture Gram Stain - Preliminary Blood Blood Culture - Preliminary Coagulase Negative Staph 08/08/20 11:05 Blood Culture - Final Blood - Imaging and Cardiology Chest x-ray: report reviewed, image reviewed CT Scan - head: report reviewed Assessment and Plan Assessment: 1. Triple-vessel coronary artery disease, unstable angina, status post three- vessel CABG 2. History of coronary artery disease with previous myocardial infarction and stent placement 3. Peripheral arterial disease with lower extremity stenting 4. History of lung cancer status post right lower lobectomy 5. Hypertension, currently hypotensive requiring IV pressors 6. Hyperlipidemia, treated, cholesterol 152, LDL 85 7. COPD with previous tobacco dependence, preoperative FEV1 82% of predicted 8. Anxiety/depression 9. Family history of premature coronary artery disease 10. Postoperative acute blood loss anemia, expected, status post 1 unit packed red blood cell transfusion 11. Postoperative acute/subacute right cerebellar infarct, unexpected, with evidence of previous right parietal stroke 12. Bilateral internal carotid artery disease greater than 75% present on CTA 13. Prolonged mechanical ventilation, unexpected acute hypoxemic respiratory failure because of her recent CVA, status post tracheostomy placement 14. Paroxysmal atrial fibrillation, status post ligation of the left atrial appendage, currently sinus rhythm 15. Leukocytosis, final sputum culture results shows Klebsiella oxytoca and Lali albicans 16. Malnutrition, status post percutaneous endoscopic gastrostomy tube placement 17. Elevated transaminase enzymes, likely secondary to amiodarone and Lipitor which are currently on hold, liver enzymes trending down today Plan: 1. Continue aspirin, and beta tran. Continue Metoprolol tartrate 100 per G- tube twice. 2. Lasix 20 mg IV 1 now. 3. Mechanical ventilator management per pulmonology/critical care management. Bronchodilators per pulmonology/critical care management. Weaning trial in progress. 4. The patient son Christian has been updated on her care. 5. Continue to monitor daily labs and chest x-rays. Electrolyte replacement per protocol. 6. GI and DVT prophylaxis. 7. Continue to hold amiodarone and statin due to her elevated liver enzymes. Liver enzymes trending down today. We will restart her statin once her liver enzymes have normalized. 8. Continue Da Silva catheter and record accurate I's and O's. The catheter was exchanged on 08/08/2020. 9. Pain control with current when necessary orders. 10. Strict accurate intake and output. Daily weights 11. Final result of sputum culture showing Klebsiella oxytoca from 08/05/2020, currently on Rocephin for antibiotic treatment. T-max temperature in the last 24 hours 99.9F. WBC count today is 21.2 which is trending down. Blood culture from 08/08/2020 pulmonary result showing gram-positive cocci in clusters. Awaiting final result. She was started on vancomycin yesterday 08/09/2020 with pharmacy to dose. Sputum culture from yesterday 08/08/2020 shows gram-negative bacilli. 12. Antibiotic management per infectious disease recommendations. 13. Continue Eliquis 5 mg per PEG tube twice a day for anticoagulation. 14. More recommendations to follow based on patient's clinical course. Time with Patient: Greater than 30
[2020-08-10] MEDS: ACETAMINOPHEN TAB 325 MG TAB PEG/G-TUBE PRN (14:49)
[2020-08-10] MEDS ORDERED: KETOROLAC 15 MG/ML 1 ML VIAL IVP STA (15:05)
--- NOTE | 2020-08-10 17:18 | PN ---
PROGRESS NOTE DATE OF SERVICE: 08/10/2020 INTERVAL HISTORY: The patient did have a low-grade fever of 100.2. The patient is hemodynamics. Not on any pressor support. FiO2 is currently stable. No significant purulence secretions through the ET or any diarrhea reported PHYSICAL EXAMINATION: Her blood pressure is 150/100 with a pulse of 95, temperature 98.2. General description is an elderly female lying in bed in no distress. Respiratory system: Unlabored breathing, decreased breath sounds at the base. No wheeze. HEART: S1, S2. Regular rate and rhythm. ABDOMEN: Soft, no tenderness. LABS: Hemoglobin 7.7, BUN of 41, creatinine 0.58. Sputum now showing Gram-negative bacilli. DIAGNOSTIC IMPRESSION AND PLAN: 1. Patient with low-grade fever, elevated white count which is multifactorial. Sputum now showing a Gram-negative. Patient is covered with the Rocephin however, was switched over to cefepime for possible resistant gram-negative. 2. Positive blood culture possible skin contaminant. Will wait for the repeat urine to be finalized. Continue with Vancomycin. MMODL / IJN: [id number] / MTDD
[2020-08-10 18:04] LABS: Glucose,Whole Blood 141 mg/dL (75-99)
[2020-08-10] MEDS: SENNOSIDES-DOCUSATE SODIUM 1 EACH TAB PO SCH (20:01)
[2020-08-10] MEDS: LOSARTAN 25 MG TAB PO SCH (20:01)
[2020-08-10] MEDS: CEFEPIME 2 GM in SODIUM CHLORIDE 0.9% 100 ML IVPB SCH (20:01)
--- NOTE | 2020-08-10 23:17 | P.PN ---
Progress Note - Text Progress Note Date: 08/10/20 Chief Complaint: Chest pain History of presenting complaint: This is a pleasant 75-year-old patient of Dr. Derrick Neal. Chronic stable medical conditions include COPD, hyperlipidemia, hypertension, ostial arthritis, lung cancer 6 years ago, peripheral artery disease, coronary artery stent, peripheral stents, anxiety depression. Patient presented after she was having central chest pressure at home then went to both the shoulder blades for the arms. Patient became nauseated. No dizziness or lightheadedness. She shortness of breath. No perspiration. Symptoms most lost about 40 minutes she was taken to [facility]. She was similar episode about 2 weeks ago. Transferred down here. Has some lower extremity edema Admitted with unstable angina. underwent cardiac catheterization. Found to have severe triple-vessel coronary artery disease. July 27-underwent coronary bypass 3, ligation of left atrial appendage. Patient received a unit of blood.postsurgery was found to have weakness on the left side.stroke was noted on the computed tomography scan. Including lacunar infarct.patient has been in and out of atrial fibrillation. computed tomography scan of the brain reviewed by Dr. Carrion: Acute bilateral cerebellar ischemic stroke as well as subacute evolving ischemic infarction involving the right MCA/TAZ watershed territory left caudate head ischemic infarction. [place] to be embolic. Today-ICU- ventilator: FiO2 40 and a PEEP of 5. Occasional nonpurposeful movement. Some respond to deep painful stimuli. Patient was in atrial fibrillation reverted to sinus rhythm today. 2 feeding at 54 mL an hour. Slight blood through the tracheostomy tube. Review of systems: Patient intubated Active Medications Acetaminophen (Acetaminophen Tab 325 Mg Tab) 650 mg PEG/G-TUBE Q6HR PRN PRN Reason: Fever and/ or Pain Last Admin: 08/10/20 14:49 Dose: 650 mg Documented by: Albuterol/Ipratropium (Ipratropium-Albuterol 3 Ml Neb) 3 ml INHALATION RT-Q2H PRN PRN Reason: Shortness Of Breath Or Wheezing Last Admin: 08/10/20 10:52 Dose: 3 ml Documented by: Apixaban (Apixaban 5 Mg Tab) 5 mg PEG/G-TUBE BID [facility] Last Admin: 08/10/20 20:01 Dose: 5 mg Documented by: Aspirin (Aspirin 81 Mg) 81 mg PO DAILY [facility] Last Admin: 08/10/20 08:29 Dose: 81 mg Documented by: Benzocaine/Menthol (Benzocaine/Menthol Lozeng 1 Each Lozenge) 1 each MUCOUS MEM Q2H PRN PRN Reason: Sore Throat Bisacodyl (Bisacodyl 10 Mg Supp) 10 mg RECTAL DAILY PRN PRN Reason: Constipation Last Admin: 08/04/20 08:47 Dose: 10 mg Documented by: Chlorhexidine Gluconate (Chlorhexidine Gluconate 15 Ml Cup) 15 ml MUCOUS MEM BID [facility] Last Admin: 08/10/20 20:01 Dose: 15 ml Documented by: Fluconazole (Fluconazole 100 Mg Tab) 100 mg PO DAILY [facility] Last Admin: 08/10/20 08:29 Dose: 100 mg Documented by: Hydralazine HCl (Hydralazine Hcl 20 Mg/Ml 1 Ml Vial) 10 mg IVP Q6HR PRN PRN Reason: Blood Pressure - High Last Admin: 08/08/20 19:11 Dose: 10 mg Documented by: Levetiracetam 500 mg/ Sodium (Chloride) 105 mls @ 400 mls/hr IVPB Q12HR@0000,1200 [facility] Last Admin: 08/10/20 11:48 Dose: 400 mls/hr Documented by: Sodium Chloride (Saline 0.45%) 1,000 mls @ 50 mls/hr IV .Q20H [facility] Last Admin: 08/10/20 20:02 Dose: 50 mls/hr Documented by: Cefepime HCl 2 gm/ Sodium (Chloride) 100 mls @ 25 mls/hr IVPB Q12HR [facility] Last Admin: 08/10/20 20:01 Dose: 25 mls/hr Documented by: Insulin Aspart (Insulin Aspart (Novolog) 100 Unit/Ml Vial) 0 unit SQ Q6HR [facility]; Protocol Last Admin: 08/10/20 18:04 Dose: 1 unit Documented by: Losartan Potassium (Losartan 25 Mg Tab) 25 mg PO HS [facility] Last Admin: 08/10/20 20:01 Dose: 25 mg Documented by: Magnesium Hydroxide (Magnesium Hydroxide 2,400 Mg/10 Ml Cup) 2,400 mg PO BID PRN PRN Reason: Constipation Metoclopramide HCl (Metoclopramide 5 Mg/Ml 2 Ml Vial) 10 mg IVP Q4H PRN PRN Reason: Nausea And Vomiting Metoprolol Tartrate (Metoprolol Tartrate 50 Mg Tab) 100 mg PO BID [facility] Last Admin: 08/10/20 20:00 Dose: 100 mg Documented by: Miscellaneous Information (Potassium Replacement Protocol 1 Each Misc) 1 each MISCELLANE DAILY PRN; Protocol PRN Reason: Per Protocol Miscellaneous Information (Magnesium Replacement Protocol 1 Each Misc) 1 each MISCELLANE DAILY PRN; Protocol PRN Reason: Per Protocol Miscellaneous Information (Phosphorus Replacement Protoco 1 Each Misc) 1 each MISCELLANE DAILY PRN; Protocol PRN Reason: Per Protocol Miscellaneous Information (Potassium Replacement Protocol 1 Each Misc) 1 each MISCELLANE DAILY PRN; Protocol PRN Reason: Per Protocol Multi-Ingred Cream/Lotion/Oil/Oint (Artificial Tears Ointment 3.5 Gm Tube) 1 applic BOTH EYES Q4H [facility] Last Admin: 08/10/20 19:56 Dose: 1 applic Documented by: Ondansetron HCl (Ondansetron 4 Mg/2 Ml Vial) 4 mg IVP Q6HR PRN PRN Reason: Nausea And Vomiting Last Admin: 08/09/20 03:43 Dose: 4 mg Documented by: Pantoprazole Sodium (Pantoprazole 40 Mg/10 Ml Vial) 40 mg IVP DAILY [facility] Last Admin: 08/10/20 08:30 Dose: 40 mg Documented by: Senna/Docusate Sodium (Sennosides-Docusate Sodium 1 Each Tab) 2 each PO HS [facility] Last Admin: 08/10/20 20:01 Dose: 2 each Documented by: Sertraline HCl (Sertraline 100 Mg Tab) 100 mg PO DAILY [facility] Last Admin: 08/10/20 08:29 Dose: 100 mg Documented by: Sodium Chloride (Sodium Chloride 0.9% Flush 10 Ml Syringe) 10 ml IV BID [facility] Last Admin: 08/10/20 20:01 Dose: 10 ml Documented by: Past medical history to include: CHF, COPD, hyperlipidemia, hypertension, coronary artery disease with stent, osteoporosis, lung cancer 6 years ago, peripheral arterial disease, anxiety depression Social history: Lives with her son. Smoked a pack a day since the teenage years. Stop in 2011. Some alcohol in the past Physical examination: VITAL SIGNS: Afebrile, 58, 20, 149.98, 97% GENERAL: Laying in bed, intubated, sedated EYES: Pupils equal. Conjunctiva normal. HEENT: External appearance of nose and ears normal, oral cavity endotracheal tube. NECK: JVD unable to assess; masses not palpable. HEART: First and second heart sounds are normal; no edema. LUNGS: Respiratory rate increased; decreased breath sounds. ABDOMEN: Soft, nontender, liver spleen not palpable, no masses palpable. Da Silva catheter PSYCH: Unable to assess MUSCULOSKELETAL: Evidence of OA Investigations: August 10: WBC 17.7 hemoglobin 7.9 platelets 617 potassium 3.5 crit 0.58 AST 45858 ALT 1971 Computed tomography scan of the brain: Age related changes but chronic small vessel disease. July 22: Potassium 4.1 creatinine 0.97 proBNP 1270 Cardiac mbfteadxiaxlvqh-uvpmid-anyler disease 2-D echocardiogram-moderate concentric LVH, EF 50-55% hypokinetic galicia Troponin I 0.018, 0.012 Coronavirus [PCR]-not detected EKG tracing personally reviewed by me-normal sinus rhythm, PVC Assessment and plan: -Coronary artery bypass [id number] July 27. On Plavix, Lopressor, Zetia -Acute postprocedure blood loss anemia, as expected from surgery, received 1 unit of blood -Hypotensive shock from volume loss patient was on levo -improved -Unstable angina, POA -Triple-vessel coronary artery disease -. Plavix, Lopressor, Zetia -Acute on chronic congestive heart diastolic dysfunction EF 50-55% received IV Lasix. Stabilized. Follow clinically -COPD in a previous smoker, on DuoNeb -Hyperlipidemia, continue Lipitor -Essential hypertension, follow closely -Primary osteoarthritis, take Tylenol when necessary -History of lung cancer 6 years ago -Peripheral arterial disease with stenting, on aspirin and Plavix -Anxiety depression otherwise specified-on Zoloft -Chronic insomnia continue with melatonin -Paroxysmal atrial fibrillation.in and out of rapid atrial fibrillation - on IV amiodarone -Acute bilateral cerebellar ischemic stroke as well as subacute evolving ischemic infarction involving the right MCA/TAZ watershed territory left caudate head ischemic infarction. [place] to be embolic./post surgical-slow to respond Patient remains on the ventilator. On DuoNeb, when necessary, eliquis, aspirin, IV cefepime, IV Keppra, half saline at 50 mL an hour. Prognosis guarded
[2020-08-11] MEDS: IPRATROPIUM-ALBUTEROL 3 ML NEB INHALATION PRN ×6 (00:02→19:42)
[2020-08-11 00:26] LABS: Glucose,Whole Blood 144 mg/dL (75-99)
[2020-08-11] MEDS: INSULIN ASPART (NovoLOG) 100 UNIT/ML VIAL SQ SCH ×5 (00:37→23:53)
[2020-08-11] MEDS: ARTIFICIAL TEARS OINTMENT 3.5 GM TUBE BOTH EYES SCH ×7 (00:37→23:54)
[2020-08-11] MEDS: levETIRAcetam IV 500 MG in SODIUM CHLORIDE 0.9% 100 ML IVPB SCH ×3 (00:38→23:53)
[2020-08-11] MEDS: hydrALAZINE HCL 20 MG/ML 1 ML VIAL IVP PRN ×2 (01:13→16:36)
[2020-08-11 05:33] LABS: Anisocytosis Slight; Basophils # (A) 0.1 k/uL (0-0.2); Basophils % (A) 1 %; Eosinophils # (A) 0.4 k/uL (0-0.7); Eosinophils % (A) 2 %; HGB 7.4 gm/dL (11.4-16.0); Hypochromasia Moderate; Lymphocytes # (A) 1.8 k/uL (1.0-4.8); Lymphocytes % (A) 11 %; MCH 29.7 pg (25.0-35.0); MCHC 30.9 g/dL (31.0-37.0); MCV 96.1 fL (80.0-100.0); Macrocytosis Slight; Mean Platelet Volume 7.7; Monocytes # (A) 0.9 k/uL (0-1.0); Monocytes % (A) 6 %; Neutrophils # (A) 13.5 k/uL (1.3-7.7); Neutrophils % (A) 80 %; Platelet Count 552 k/uL (150-450); RDW 16.2 % (11.5-15.5); WBC 16.9 k/uL (3.8-10.6)
[2020-08-11 05:47] LABS: ABG HCO3 28 mmol/L (21-25); ABG PCO2 41 mmHg (35-45); ABG PH 7.44 (7.35-7.45); ABG PO2 82 mmHg (83-108); ABG TCO2 29 mmol/L (19-24); Allen Test Performed? Yes
[2020-08-11 05:48] LABS: ABG Base Excess 3.4 mmol/L
[2020-08-11 06:15] LABS: Potassium 3.6 mmol/L (3.5-5.1)
[2020-08-11 06:16] LABS: AST 720 U/L (14-36); African American GFR (CKD) >90 (>60 ml/min/1.73 sqM); Albumin 2.9 g/dL (3.5-5.0); Alkaline Phosphatase 121 U/L (38-126); Anion Gap 6 mmol/L; Blood Urea Nitrogen 37 mg/dL (7-17); Calcium 8.1 mg/dL (8.4-10.2); Carbon Dioxide 28 mmol/L (22-30); Chloride 107 mmol/L (98-107); Glucose 142 mg/dL (74-99); Non-African American GFR(CKD) >90 (>60 ml/min/1.73 sqM); Sodium 141 mmol/L (137-145); Total Bilirubin 0.6 mg/dL (0.2-1.3); Total Protein 5.4 g/dL (6.3-8.2)
[2020-08-11 06:24] LABS: Glucose,Whole Blood 134 mg/dL (75-99)
[2020-08-11 07:08] LABS: ALT 1456 U/L (4-34)
[2020-08-11] MEDS ORDERED: FUROSEMIDE 10 MG/ML 4 ML VIAL IV STA (07:14)
--- NOTE | 2020-08-11 07:14 | P.PN ---
Subjective Progress Note Date: 08/11/20 Coronary artery disease status post coronary artery bypass grafting Patient was reevaluated today on 07/28/2020, remains intubated and mechanically ventilated. Patient is now on assist control mode of mechanical ventilation with a rate of 16, volume is 450 FiO2 is 50% and PEEP of 5. Unfortunately the p atjuan was noted to have poor movement of her left upper and left lower extremity last night, CT of the head last night showed acute/subacute area of infarction in the right cerebellum along with probable area of chronic infarction in the right parietal region I evaluated the patient this morning, s eems to be extremely restless and agitated, seems to be neglecting the left side, and both eyes are deviated to the right and upwards. Patient seems to be moving her right side quite well, however the left side seems to be relatively weak although she was squeezing my hand with her left hand. And minimal movement noted in the left lower extremity. Patient is on Precedex, and seems to be agitated in spite of Precedex. Her ventilatory settings are reasonable, ABG is reasonable, patient is basically extubate overall, however her mental status is a bit concerning specially with her extreme agitation, keeps pulling and shaking the railing of the bed on the right side. Patient was given Ativan, and I have recommended increasing Precedex. She is not truly quite ready to be extubated today. Again my major concern is her mental status. And she is yet to be seen by neurology on consultation. Blood pressure is quite high, 160 systolic, norepinephrine was discontinued during my evaluation. She was on a very minimal dose of 0.1 mcg/kg/m of norepinephrine patient was also on milrinone. CBC is relatively normal hemoglobin is 7.4. ABG this morning showed a pO2 of 92 pCO2 of 38 pH of 7.45. This was on 50% FiO2. Electrolytes and renal profile are normal. Chest x-ray showed mostly postoperative changes of CABG 07/29/2020, I'm seeing the patient for a follow-up in the intensive care unit. This morning the patient is heavily sedated with propofol and she is calm and comfortable. Unfortunately with that, neurologic examination is not possible. I would suggest gradually cutting down the propofol and assess her neuro status and if needed utilize Precedex as an alternative sedative drip. Meanwhile, the patient remains essentially with enema to severe with a low dose of norep inephrine infusion running at 0.06 mcg/kg per minute. She has an adequate urine output. Cardiac rhythm is sinus. She has a left pleural and mediastinal chest tubes and output from those are in order of minimal, less than 100 over the past 24 hours. The chest x-ray showing cardiomegaly. There is some kyphoscoliosis of the chest. Chest tubes are in good location. ET tube is in good location. Atelectatic changes and some mild four-vessel congestion. Meanwhile, the patient's vent settings include an assist-control mode at the rate of 16 with a tidal volume of 450 and FiO2 of 40% with a PEEP of 5. The blood gases from this morning showed a pH of 7.49 with a pCO2 of 36 and pO2 of 82. On today's blood work, the patient's hemoglobin is down to 6.9 from 7.4. Platelets is at 210. 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 Intracranial cerebral arteries were essentially patent with nothing significantly stenotic. During our limited neurologic evaluation, the patient did not do mistreat any withdrawal with to painful stimulation. No Babinski. No clonus. Nevertheless, I was told by the nursing staff that she was able to move her right side yesterday and her left side once off sedation. Pupils are equal and reactive to light and order of 3 mm. No preferential gaze on today's evaluation. A sedation holiday will be given. She is on enteral nutrition. No other drips. No seizure activity. Neurologist on the case. She is on aspirin, Plavix, and she also on metoprolol 12.5 mg by mouth twice a day. She is also on high-dose statins. Progress note dated 05/29/2021. Currently, this is a 75-year-old female who was admitted to the hospital on July 21. She went to the operating room, on July 27 for a three-vessel bypass grafting with Dr. Alan. The patient has never been extubated. Unfortunately, she developed a right cerebellar CVA. She remains on the mechanical ventilator. She is currently on the volume assist control mode, rate is 16, tidal volume 400, FiO2 60%, and PEEP of 5. The blood gases show a PaO2 of 99, a PaCO2 of 40, and a pH of 7.44. She also remains on lactated Ringer's at 20 mL an hour, propofol was turned off for the spontaneous breathing trial, and she's been weaned off of norepinephrine. She is receiving vital AF, at a rate of 30 mL an hour, with a goal of 57 mL an hour. We placed the patient on pressure support of 5 CPAP of 5, and stayed in the room to observe her response to the spontaneous breathing trial. Unfortunately, the patient's respiratory rate went up above 40, and a tidal volumes dropped down to 200 range. Her m inute volume was quite high, and the patient was placed back on the volume assist control mode. After the failed spontaneous breathing trial, the patient's tidal volume was dropped down to 350, her FiO2 was decreased to 50%, and the peak level was increased from 5 to 8 cm water. White count is 12.8, hemoglobin 8, hematocrit 23.5, and platelet count 210,000. Blood gases have been reviewed. Sodium 139, potassium 3.6, chlorides 107, CO2 27, anion gap 5, BUN 33, and creatinine 0.64. Chest x-ray shows a right lower lobe infiltrate and my opinion. Progress note dated 07/31/2020 75-year-old female, that was admitted to the hospital on July 21. She went to the operating room on July 27 for a three-vessel bypass grafting with Dr. Alan. The patient has never been extubated and unfortunately, she developed a right cerebellar CVA. She currently remains on the ventilator, on the volume assist control modality. She is on a rate of 16, tidal volume 350, FiO2 50%, and a PEEP of 8. Arterial blood gases show a PaO2 of 76, PaCO2 44, and a pH of 7.4. The patient is getting lactated Ringer's at KVO, amiodarone at 0.5 mg/m, and propofol at 30 mcg/kg/m. In addition, the patient's on vital AF 1.2 at 57, with a goal of 57 mL an hour. Today, we attempted a daily interruption of se dation and a spontaneous breathing trial. As noted yesterday, she failed her trial. Today, we placed her on PSV 8, and CPAP of 5. Currently, she is doing a bit better today. A Dobbhoff tube was placed yesterday. Unfortunately, she appears to be weaker on the right side. The left side she does not move at all. In the end, she may end up with the tracheostomy tube and a ET tube. Yesterday, after the spontaneous breathing trial, the patient unfortunately developed atrial fibrillation with RVR, and that is why the patient is on amiodarone. The patient is seen today 08/01/2020 in follow-up in the intensive care unit. She remains intubated on the mechanical ventilator. Current settings assist- control of with a rate of 16, tidal volume 350, FiO2 50% and a PEEP of 8. Morning blood gases reveal a P O2 of 77, pCO2 of 40, pH 7.47. She remains sedated on propofol at 30 mcg/kg/m. Lactated Ringer's at KVO. She developed atrial fibrillation with rapid ventricular response. She is currently on amiodarone at 0.5 mg/m. She is being nourished with vital HP at 20 ML's per hour which is goal. She was given daily interruption of sedation. She develops A. fib RVR during a spontaneous breathing trials yesterday. We'll trial again today. His chest x-ray continues to show stable diffuse pleuroparenchymal changes. Endotracheal tube and gastric tubes are secured in place. Left-sided chest tube has been removed. PICC line in place. She is status post 1 unit of packed red blood cells this admission. Current hemoglobin 7.1. White count 13.6. Sodium 136. Potassium 3.5. Creatinine 0.55. AST 107. ALT 105. Albumin 2.7. She is continued on DuoNeb inhalations. Heparin for DVT prophylaxis. The patient is seen today 08/02/2020 in follow-up in the intensive care unit. She remains intubated and sedated. Currently on mechanical ventilator assist control mode at a rate of 16. Tidal volume 350. FiO2 40%. PEEP of 8. Morning blood gases reveal a P O2 of 100, pCO2 38, pH 7.49. This is on 50% FiO2. She is currently sedated on propofol at 35 mcg/kg/m. She remains on heparin drip. 0.9 normal saline at 20 ML's per hour. She is being nourished with vital HP 20 ML's per hour which is goal. She was given daily interruption of sedation yesterday she became extremely tachypneic with a respiratory rate in the 40s, not following any commands. Placed back on assist control. Trial again today. She has been having issues with atrial fibrillation. Transitioned to oral amiodarone. Chest x-ray reveals left-sided PICC line in place. Endotracheal and gastric tubes are stable. Vertebral column stimulator in place. There are bilateral infiltrates/pleural effusions. Diffusion interstitial pattern. No pneumothorax. She has received 1 unit of packed red blood cells this admission. Current hemoglobin 7.6. Platelets 387. White count 20.6. Sodium 137. Potas sium 3.9. Creatinine 0.50. AST 67. ALT 83. Albumin 2.8. The patient is seen today 08/03/2020 in follow-up in the intensive care unit. Postoperative day #7. She remains intubated and sedated on the mechanical ventilator. Current mode assist control with a rate of 16, tidal been 350, FiO2 40% and a PEEP of 8. Morning blood gases reveal pO2 of 90, pCO2 40, pH 7.49. Currently on propofol at 20 mcg/kg/m. Remains on heparin drip at weight-based protocol. Lactated Ringer's at 20 ML's per hour. She is being nourished with vital HP at 28 ML's per hour which is goal. Free water flushes at 30 MLS every 4 hours. Sputum culture pending. White count 20.5. Hemoglobin 7.7. Sodium 139. Potassium 3.9. Creatinine 0.53. AST 70, ALT 80. She remains on DuoNeb inhalations. Chest x-ray reveals good placement of the endotracheal tube and Dobbhoff tubes. Left sided PICC line in place. Bibasilar densities persist. Perihilar increase attenuation noted within the lungs, left hemidiaphragm remains obscured greater than right. Currently afebrile. Hemodynamically stable. Currently in atrial fibrillation with controlled ventricular rate. She responds to painful stimuli on the right. She did sustain an acute bilateral cerebellar ischemic stroke right greater than left as well as a subacute evolving ischemic infarction including the right MCA/TAZ watershed territory with left-sided hemiplegia. She has not tolerated daily interruption of sedation due to her becoming tachypneic, tachycardic and hypertensive. The patient is seen today 08/04/2020 and follow-up in the intensive care unit. Postoperative day #8. She remains intubated and sedated on mechanical ventilator. Current settings assist-control at a rate of 16, tidal volume 350, FiO2 40%, PEEP of 5. Blood gases reveal a P O2 of 81, pCO2 38, pH 7.51. She remains on propofol at 25 mcg/kg/m. Heparin per weight base protocol. Lactated Ringer's at 20 ML's per hour. She is being nourished with vital HP at 20 mL per hour which is goal. She is spontaneously moving her right arm and right leg. Not following any simple commands. She is status post 1 unit of packed red blood cells this admission. Current hemoglobin 6.9. White count 19.4. Sodium 138. Potassium 3.7. Creatinine 0.71. AST 117, ALT 106. Albumin 2.7. She was given a interruption of sedation and spontaneous breathing trial yesterday. She did develop atrial fibrillation with rapid ventricular response with hypertension, tachypnea. Placed back on mechanical ventilator. We'll trial again today. Plan is for possible tracheostomy and PEG tube placements on 08/06/2020. Chest x-ray continues to show cardiomegaly with mild central venous congestion and left greater than right bibasilar acute infiltrates. Small left pleural effusion. No significant change compared to previous. Sputum culture reveals no growth. Blood culture reveals no growth. She remains on bronchodilators, ceftriaxone. The patient is seen today 08/05/2020 in follow-up in the intensive care unit. Postoperative day #9. She remains intubated, sedated on the mechanical ventilator. Assist-control mode at a rate of 16, tidal been 350, FiO2 40% and a PEEP of 5. Morning blood gases reveal a P O2 of 66, pCO2 38, pH 7.4. She remains on a heparin drip or weight base protocol. Lactated Ringer's at 20 ML's per hour. Propofol at 40 mcg/kg/m. She is being nourished with vital HP at 28 ML's per hour which is goal. Chest x-ray reveals evidence of cardiomegaly with moderate central vascular congestion and left basilar small pleural effusion with associated acute infiltrate and/or atelectasis. A bit worse compared to yesterday. She was given Lasix 20 mg IVP 1. Remains on bronchodilators and on ceftriaxone. Repeat sputum culture pending. Status post 2 units of packed red blood cells this admission. White count 16.6. Hemoglobin 7.6. Sodium 137. Potassium 3.7. Creatinine 0.60. AST 142. ALT 156. Albumin 2.6. Glucose 106. Amiodarone was discontinued due to elevated LFTs. Currently rate-controlled atrial fibrillation. On 08/06/2020 him on seeing the patient for a follow-up in the intensive care unit. This patient is currently postop day number not 10. She had a comfort care postoperative course following her bypass surgeon and the patient had developed a stroke with altered mentation and she never got to a point where she was awake and alert and following commands and as such her extubation process of eating was quite complicated. She was always agitated, restless, not following commands and not following the weaning protocols. As such, the patient was kept sedated and the patient was kept on a mechanical ventilator. She had received daily sedation holidays. She is at the point where she is going to have a PEG and trach today done by general surgery. Meanwhile, the patient is on propofol running at 50 mcg/kg per minute and this morning she is calm and comfortable. She is on assist-control mode at the rate of 60 with a tidal volume of 350 and FiO2 of 40% with a PEEP of 5. The blood gases from today showed a pH of 7.4 With a pCO2 of 40 and pO2 of 71. Hemoglobin is at 7.3 and the patient received a unit of packed RBC on 08/04/2020 and hemoglobin has remained stable since. The patient had some mild disturbance in the liver function tests. Amiodarone has been discontinued. Current cardiac rhythm is sinus. The patient is on no pressors. The patient currently is receiving IV fluids in the form of D5 half-n ormal along with potassium supplements at the rate of 40 mL an hour. Neurologically, she does have a pressure gaze to the right upper quadrant area. Pupils are equal and reactive to light. She withdraws to painful similar ablation 04 extremities. Neurologist on the case. She does have a Dobbhoff and the patient is receiving enteral feeding in the form of vital high protein and currently the tube feeds on hold pending surgery. Blood sugars under adequate control. Urine output is adequate. 08/07/2020, I'm seeing the patient for a follow-up. The patient is postop day #11. The patient remains on a mechanical ventilator. Because of her prolonged arrest 30 failure and altered mental status post CVA, the patient required to have a PEG tube insertion and tracheostomy tube insertion. The procedure was done yesterday and today patient is postop day #1 post tracheostomy tube insertion. She is currently on assist control mode at the rate of 60 without a volume of 350 and FiO2 of 40% with a PEEP of 5. Blood gases showed a pH of 7.29 with a pCO2 of 45 and pO2 of 76. Hematocrit ventilation on the mechanical ventilator is around 8.5. The chest x-ray from today shows adequate positioning of the tracheostomy tube. The patient has a #[address] in place[address] The patient has a left upper extremity PICC line. The patient has some mild pulmonary vascular congestion. There is cardiomegaly. Trace left-sided pleural effusion. No other abnormalities noted. Meanwhile, as the patient was being weaned off the propofol, the patient was at atrial fibrillation with rapid ventricular response around 10 PM. The patient currently is on propofol of 25 mcg/kg per minute. The patient's is being treated with amiodarone drip. She was started with a bolus and following that she is was maintained on 0.5 mg per minute. Her current rate is 118 and still irregular. White cell count is at 21.6 and hemoglobin is at 8.6. Renal function is stable with a creatinine of 0.57, nevertheless, the patient has developed a component of metabolic acidosis with a serum bicarbonate up from 31 down to 20 and the liver function tests remain to be of normal with a bilirubin of 0.7, AST of 80, AST of 124. Her pro- calcitonin from 08/03/2020 was 0.12. IV fluids are running with D5 half-normal saline at the rate of 60 and the patient is nothing by mouth for now. The plan is to start some enteral feeding for nutritional support. In terms of her atrial fibrillation, the patient is on amiodarone drip and she is also on metoprolol 25 mg by mouth 3 times a day. 08/08/2020 I'm seeing the patient for a follow-up on postop day #12. Remains completely unresponsive despite being off sedation for the past 24-48 hours. She is post tracheostomy tube insertion and on today's evaluation the patient's chest x-ray shows no interval change and the patient has adequate positioning of the tracheostomy tube With some small trace bilateral pleural effusion and lung bases and some scattered bilateral pulmonary infiltrates. The patient has grown Klebsiella and Lali in his sputum and the patient remains on IV Rocephin for now. She is afebrile. Her white cell count has gone up to 24. The blood gases from today shows a pH of 7.43 with a pCO2 of 34 and pO2 of 74. After recovering from her atrial fibrillation, earlier this morning while taking a bath, the patient slipped back into A. fib RVR. Her current heart rate is somewhere between 100 and 115. She remains on IV heparin. She is on oral amiodarone at a dose of 200 mg by mouth twice a day and the patient is also on metoprolol 50 mg by mouth twice a day. Morning medication has not been given yet. No seizure activity. No sedatives. Neurologically unresponsive, she may grimace to painful stimulation, yet for the most part, she cannot follow commands and she is not moving any of her extremities upon demand. On today's evaluation, she was noted to have some increased work of breathing. Based on that, I increased her tidal volume to 450 and I put that on the VC plus mode. She seemed 3 much more comfortable an assist-control mode with a tidal volume of 450 and FiO2 of 40% with a PEEP of 5 with an inspiratory time of 0.9. She is receiving enteral feeding via effective and the patient is currently on vital high protein at the rate of 20 mL an hour. She is also on a bicarb drip with a serum bicarb of 27 and she is receiving a total of 250 mg of sodium bicarbonate D5 water at the rate of 50 mL an hour. 08/09/2020 I'm seeing the patient for a follow-up the is postop day #13 following cardiac surgery and active issue for now remains diminished level of consciousness and unresponsiveness. Note that the patient developed a CVA with left-sided weakness based on the CAT scan that was obtained postop. Nevertheless, the patient has not regained consciousness since. For the past 48 hours, she is been off sedation. On today's evaluation I see has grimacing to deep painful stimulation. She would open up her eyes spontaneously. She is still not following any commands. Pupils are equal and reactive to light. No motor function still. Brainstem reflexes are still abnormal liver function tests/shock liver. 2. Will placed on hold. Amylase and lipase were within normal limits. Ammonia level came back at less than 9. Liver function tests are down trending and the patient was taken off the Lipitor and amiodarone. She was also kept nothing by mouth for the past 24 hours. Her chest x-ray from today shows no significant interval change. Tracheostomy tube is in a good location and the patient has a Bivona tracheostomy tube in place and the chest x-ray from today is showing some bilateral pulmonary infiltrates most on the lung bases and possibly small pleural effusions bilaterally. The white cell count is down to 21. The pro-calcitonin level is still pending. The sputum culture was positive for Klebsiella and a repeat culture was obtained and the patient was kept on IV Rocephin. No significant orotracheal secretions. Earlier this morning the patient was on a VC plus mode with a tidal volume of 450 and the rate of 16 with a PEEP of 500 FiO2 of 40%. I switched this patient a spontaneous mode of breathing and currently she is on a pressure support of 5 and a PEEP of 5 and FiO2 of 40% and she is able to generate a tidal volume of 330 with a rate of 21 and a minute ventilation of 7.3. No signs of any respiratory distress. Hemodynamically she is stable on no pressors. She is in a normal sinus/She is on long-term anticoagulation with Eliquis. She is slightly edematous pressure and upper extremity and her net fluid balance over the past 24 hours has been 1 liter is still on half-normal saline today to 50 mL an hour. 08/10/2020, the patient seems to be more awake, obvious withdrawal to painful stimulation on the right, no movement on the left as the patient has a left- sided hemiplegia along with some left facial droop. Her gait is still to the right. I was able to elicit some response from her where she did squeeze my fingers upon demand using her right upper extremity. However the response was not consistent. She is resting comfortably in bed. She is hemodynamically stable. On and off she is going still into atrial fibrillation and this morning she is back in 2 A. fib. She remains on mechanical ventilator. Tracheostomy tube was pushed in further yesterday and on today's chest x-ray there is adequate positioning of the tracheostomy tube. There is diffuse bilateral pulmonary infiltrates as discussed earlier, unchanged. No pneumothorax. The patient is on assist control mode rate of 14 with a tidal volume of 450 and FiO2 of 40% with a PEEP of 5. Peak airway pressure is around 15. PH is at 7.43 with a pCO2 of 39 and pO2 of 86. A repeat CAT scan of the brain showed no acute abnormalities. Was sick is at 17.4 with a hemoglobin of 7.9. The rest of the renal function tests and electrodes are all within normal limits. The blood cul ture was was positive for coagulase-negative staph and the patient was given a dose of vancomycin. She remains on IV Rocephin. She remains on Keppra. Repeat the sputum is still showing no microbial growth. The patient is back on enteral feeding for nutritional support. She is currently running at the rate of 54 mL an hour which is at goal. Meanwhile, her liver function test was also showing recovery the patient's AST is down to 1374 and ALP is down to 1971. Ammonia level is not elevated. Blood sugar is controlled for now. 6 2020, the patient's neurologic status is unchanged. She is now following commands she opens up her eyes pH she'll occasionally moves her right upper extremity and less of movement is also seen in the right leg. No movement on the right. She blinks and she opens her eyes and she doesn't follow any commands. No seizure activity. No response to any verbal stimulation. She remained on assist control mode at the rate of 60 with a tidal volume of 450 and FiO2 of 40% with a PEEP of 5. This is a VC plus mode with an inspiratory time of 0.8 seconds. Chest x-ray is showing stable findings. Tracheostomy is in a good location. Sputum is showing gram-negative bacillus. Prior sputum culture has shown Klebsiella and the patient is still covered with IV cefepime The blood gases from today showed a pH of 7.44 with a pCO2 of 41 and pO2 of 82. Hemodynamically, she is afebrile. She is stable. She is on no pressors. Her fluid balance is in the order of +1.5 L over the past 24 hours and she's been consistently positive over the past few days. No signs of any significant fluid overload. She has some increased edema in the upper extremities bilaterally. She has a enteral feeding with vital high protein running at the rate of 54 mL an hour which is at goal and the PEG tube site is clean and the patient is producing adequate bowel movement activity. She has an umbilical hernia which is reducible and the surgical wound site is dry clean and intact. Neurology had discussed the case with the family and we are going to have another family meeting hopefully within the next few days. Hemoglobin stable at 7.4. No evidence of any GI bleeding. Her liver function tests were down trending and we are still awaiting a follow-up level. Pro-calcitonin level was 0.88. Objective - Vital Signs Vital signs: Vital Signs Temp 98.8 F 08/11/20 04:00 Pulse 61 08/11/20 05:00 Resp 19 08/11/20 05:00 BP 155/69 08/11/20 05:00 Pulse Ox 95 08/11/20 05:00 Intake & Output 08/10/20 08/11/20 08/11/20 18:59 06:59 18:59 Intake Total 1567 1360 Output Total 1310 405 Balance 257 955 Weight 93.3 kg 94.6 kg Intake: IV 650 700 Cefepime 2 gm In Sodium 100 Chloride 0.9% 100 ml @ 25 mls/hr IVPB Q12HR [facility] Rx #:[id number] Sodium Chloride 0.45% 1, 650 500 000 ml @ 50 mls/hr IV . Q20H [facility] Rx#:[id number] levETIRAcetam IV 500 mg 100 In Sodium Chloride 0.9% 100 ml @ 400 mls/hr IVPB Q12HR@0000,1200 [facility] Rx#: [id number] Tube Feeding 702 540 Other 215 120 Output: Urine 1310 405 Other: Voiding Method Indwelling Catheter Indwelling Catheter ABP, PAP, CO, CI - Last Documented Arterial Blood Pressure 113/55 Pulmonary Artery Pressure 40/20 Cardiac Output 4.3 Cardiac Index 2.2 - Exam Intubated, sedated 75-year-old female patient. Sedated on propofol. The patient is not responsive. She may have a sluggish response to deep painful stimulation. She does have no motor function left upper extremity. Currently she has a tracheostomy tube in place which is a #7 Biv[place] tracheostomy tube. HEENT examination is grossly unremarkable. Mucous membranes are moist. There is a orally placed endotracheal tube, and the patient has a Dobbhoff catheter in place Neck supple. Full range of motion. No adenopathy thyromegaly or neck vein distention. Cardiovascular examination reveals an irregular rhythm and rate. Irregular S1- S2 consistent with atrial fibrillation with rapid ventricular response. Heart rate is around 120, irregular and the patient has his sternum which is intact and dry and clean and well-healed. Lungs reveal bilateral rhonchi. No wheezes or crackles. Breath sounds equal bilaterally., Sternal stable clean and intact and is well-healed Abdominal exam revealed normal bowel sounds. The abdomen was soft, non-tender, and without masses, organomegaly, or appreciable enlargement of the abdominal aorta. The patient has a PEG tube which is in place and exit site is dry clean and intact Extremities are intact. No cyanosis clubbing or edema. Skin is without rash or lesion. Neurologic examination she may grimace to painful stimulation. There may be some facial asymmetry with some left-sided weakness. Pupils are equal and reactive to light. I was unable to elicit any motor response on today's evaluation. Nevertheless, the patient had left-sided weakness. No clonus. Reflexes are diminished. Extremities symmetrical in all 4 extremities. Babinski could not be elicited. Does have a weak cough and a gag. The patient has a weak cough. The patient has a weak gag. She does have positive corneals. Pupils are round 3-4 mm in size and there reactive to light. She may have a preferential gaze looking into the upper visual ugarte. - Labs CBC & Chem 7: 08/11/20 04:45 08/11/20 04:45 Labs: Abnormal Lab Results - Last 24 Hours (Table) 08/10/20 08/10/20 08/11/20 Range/Units 11:46 18:03 00:25 WBC (3.8-10.6) k/uL RBC (3.80-5.40) m/uL Hgb (11.4-16.0) gm/dL Hct (34.0-46.0) % MCHC (31.0-37.0) g/dL RDW (11.5-15.5) % Plt Count (150-450) k/uL Neutrophils # (1.3-7.7) k/uL ABG pO2 (83-108) mmHg ABG HCO3 (21-25) mmol/L ABG Total CO2 (19-24) mmol/L POC Glucose (mg/dL) 136 H 141 H 144 H (75-99) mg/dL 08/11/20 08/11/20 08/11/20 Range/Units 04:45 05:17 06:23 WBC 16.9 H (3.8-10.6) k/uL RBC 2.50 L (3.80-5.40) m/uL Hgb 7.4 L (11.4-16.0) gm/dL Hct 24.0 L (34.0-46.0) % MCHC 30.9 L (31.0-37.0) g/dL RDW 16.2 H (11.5-15.5) % Plt Count 552 H (150-450) k/uL Neutrophils # 13.5 H (1.3-7.7) k/uL ABG pO2 82 L (83-108) mmHg ABG HCO3 28 H (21-25) mmol/L ABG Total CO2 29 H (19-24) mmol/L POC Glucose (mg/dL) 134 H (75-99) mg/dL Microbiology - Last 24 Hours (Table) 08/09/20 11:50 Blood Culture - Preliminary Blood No Growth after 24 hours 08/09/20 11:29 Blood Culture - Preliminary Blood No Growth after 24 hours 08/08/20 11:05 Blood Culture Gram Stain - Preliminary Blood Blood Culture - Preliminary Coagulase Negative Staph 08/08/20 20:14 Gram Stain - Preliminary Sputum Sputum Culture - Preliminary Gram Neg Bacilli Assessment and Plan Plan: 1 Status post three-vessel bypass grafting. The patient is postop day #15. The patient remains intubated on mechanical ventilator. This was a post operative course was quite complicated and the patient a neurologic event with left-sided weakness and right sided/study bilateral acute/subacute CVA. The patient had a tracheostomy tube inserted yesterday the patient is postop day #5 post tracheostomy tube insertion and a PEG tube insertion. The patient remains unresponsive . CAT scan of the brain was done yesterday and it showed no acute abnormalities. The patient had no evidence of any hemorrhage. Moderate to moderate diffuse age-related atrophy. Small areas of subacute infarct involving in the right superior cerebellar hemisphere is diminished in size from prior examination. This patient has been off sedation or the past 72 hours. She has become more active and she is showing more of nonpurposeful movements but nothing in the sense that she follows commands and shows responsiveness to any verbal 2 acute hypoxemic respiratory failure and remains on the ventilator because of her recent ischemic CVA. Patient had prolonged respiratory failure due to pos top CVA and the patient has a tracheostomy placed yesterday for ongoing respiratory support. Chest x-ray still showing bilateral pulmonary infiltrates and small effusion on the left. Sputum was positive for Klebsiella and the patient is still covered with IV Rocephin. Pro-calcitonin level was nonelevated and the patient is afebrile white cell count is . The patient has a gram- negative bacillus in the sputum. Awaiting final cultures. Still on IV cefepime 3 Postoperative acute/subacute right cerebellar infarct, complicated further by a lleft-sided hemiparesis. Suspected brainstem infarct in combination with a cerebellar infarct causing altered mentation and diminished level of conscio usness. 4 Leukocytosis of unclear etiology, white cell count is at 16 5 Remote history of non-small cell lung cancer, with previous lobectomy. 6 Prior history of tobacco use. 7 Mild COPD based on PFTs. 8 Family history of premature coronary artery disease. 9 History of hypertension. 10 Peripheral vascular occlusive disease. 11 Degenerative joint disease. 12 Hyperlipidemia. 13 Chronic insomnia. 14 History of postoperative anemia. Hb is 7.4 15 metabolic acidosis, recovered 16 paroxysmal atrial fibrillation with rapid ventricular response , back to normal sinus rhythm and the patient was started on long-term anticoagulation with Eliquis. The patient is currently off amiodarone and the patient is receiving metoprolol at a dose of 100 mg by mouth twice a day. 17 shock liver with abnormal LFTs, ultrasound the liver is pending for now LFTs are down trending monitor and ultrasound of the liver showed no acute abnormalities. Plan: Continue ventilator support, no changes Keep the patient off sedation, neurologically unchanged Given a dose of Lasix 40 mg IV push to maintain a adequate fluid balance Infectious disease opted for IV cefepime Awaiting final sputum Gram stain and culture Enteral feeding with vital high protein at the rate of 54 mL an hour which is at goal and the patient is tolerating her treatment Hold Lipitor and amiodarone Continue metoprolol 100 mg by mouth twice daily in combination with Eliquis Monitor mental status Monitor neurologic exam neurologically the patient is impaired neurologic outcome is poor baseline above-mentioned examination and We will continue to follow and make further recommendations based on her clinical status Critical care evaluation, done more than 30 minutes. Time with Patient: Greater than 30
--- NOTE | 2020-08-11 07:43 | XR ---
EXAMINATION TYPE: XR chest 1V portable DATE OF EXAM: 08/11/2020 COMPARISON: Prior chest x-ray 08/10/2020 HISTORY: Abnormal physical exam, abnormal chest x-ray TECHNIQUE: Single frontal view of the chest is obtained. FINDINGS: Findings are similar to prior exam. IMPRESSION: Correlate for pneumonia, congestive heart failure with possible effusion, ARDS
[2020-08-11] MEDS ORDERED: POTASSIUM BICARBONATE/CIT AC 20 MEQ TABLET.EFF NG-TUBE SCH (08:00)
[2020-08-11] MEDS ORDERED: VANCOMYCIN TROUGH DUE 1 EACH MISC MISCELLANE ONE (08:00)
[2020-08-11] MEDS: CHLORHEXIDINE GLUCONATE 15 ML CUP MUCOUS MEM SCH ×2 (08:35→20:02)
[2020-08-11] MEDS: METOPROLOL TARTRATE 50 MG TAB PO SCH ×2 (08:35→20:03)
[2020-08-11] MEDS: CEFEPIME 2 GM in SODIUM CHLORIDE 0.9% 100 ML IVPB SCH ×2 (08:35→20:03)
[2020-08-11] MEDS: APIXABAN 5 MG TAB PEG/G-TUBE SCH ×2 (08:36→20:03)
[2020-08-11] MEDS: SERTRALINE 100 MG TAB PO SCH (08:36)
[2020-08-11] MEDS: PANTOPRAZOLE 40 MG/10 ML VIAL IVP SCH (08:36)
[2020-08-11] MEDS: FLUCONAZOLE 100 MG TAB PO SCH (08:36)
[2020-08-11] MEDS: ASPIRIN 81 MG PO SCH (08:36)
[2020-08-11 08:57] LABS: AST 622 U/L (14-36)
[2020-08-11 09:10] LABS: ALT 1412 U/L (4-34)
--- NOTE | 2020-08-11 09:44 | P.PN ---
Subjective HPI: This is a 75-year-old female past medical history significant for coronary artery disease with previous myocardial infarction and stent placement, peripheral artery disease with lower extremity stenting, lung cancer s/p right lower lobectomy in 2011, hypertension, hyperlipidemia, COPD with previous tobacco dependence quit in 2011. Presented with NSTEMI. She presented to the emergency department at [facility] with complaints of midsternal chest discomfort radiating to her back and down bilateral arms, transferred to [facility]. On 07/22- Patient underwent cardiac catheterization and found to have severe triple-vessel coronary artery disease with significant disease in the proximal LAD, mid LAD, obtuse marginal branch and the right coronary artery in the long segment. Echo revealed normal left ventricular systolic function EF 50-55% with mild aortic stenosis. She underwent coronary artery bypass grafting x 3 vessels, ligation of the left atrial appendage on 07/27. Post-operatively, 07/28, while patient being weaned off sedation, patient was found to have left-sided weakness, deviation of the head to the right side, was not following commands. CT brain revealed acute/subacute ischemic infarction the right cerebellum. Patient is seen and examined this morning around 0815. Patient underwent tracheostomy and PEG tube placement 08/06/20. Overnight, she went into atrial fibrillation with RVR 10 PM. Patient was started on amiodarone drip, started with a bolus and following that she was maintained on 0.5 mg/min. She is on mechanical ventilation and sedated on propofol drip. She is not following any verbal commands. Vent setting AC tidal volume 400 FiO2 40% and PEEP of 5. Laboratory data reviewed, WBC 21.4, Hgb 8.6, Plt 739, Na 137, K 5.3, sCr 0.57, AST 80, ALT 124, Alk Phos 181. 08/08/2020: Patient seen and examined. Attempted to wean sedation and patient able to open eyes however no meaningful movements or interaction. Liver enzymes have been increasing with AST 2995 and ALT 2452, severely elevated from previous 80 and 120. Alk phos 157, total bilirubin 0.8. Amiodarone was discontinued. Heart rates predominantly 100s to 115 in A. fib. White blood cell count remains elevated at 24, hemoglobin 8.4. Increase metoprolol from 50-100 today. 08/09/2020 Patient seen and examined. Patient undergoing spontaneous breathing trial this morning. Remains unresponsive without any response to verbal or noxious stimuli. AST and ALT are somewhat improved at 1417 100 today. CRP noted to be very elevated at 82 and white blood cell count remains elevated at 21. Abdominal ultrasound was performed this morning however pending results. Amiodarone was discontinued yesterday and metoprolol was increased yesterday to 100 mg twice a day. Patient converted to normal sinus rhythm yesterday at around midnight. 08/10/20 Patient seen and examined. Patient has not been receiving any sedation and still remains lethargic and unresponsive. Patient occasionally spontaneously moving her right arm however not making any purposeful movements. She did go back into Afib with HR's 90-low 100's. AST and ALT still elevated at 1319 1900 respectively. White blood cell still elevated at 17.7. Remains on Eliquis 5mg bid, hgb stable. 08/11/20 Patient seen and examined. Patient remains lethargic and unresponsive. She has been off of any sedation. She converted to normal sinus rhythm. AST improved to 622 and ALT of 1412 today. PHYSICAL EXAMINATION HEENT: Mucous membranes moist CHEST EXAMINATION: Bilateral rhonchi, no wheezes or crackles. Breath sounds are equal bilaterally HEART EXAMINATION: Irregular rate and rhythm, S1, S2 heard. No murmurs, gallops or rub. Inscision clean dry intact ABDOMEN: Soft, Positive bowel sounds. EXTREMITIES: 2+ peripheral pulses, 2+ pitting edema, LUE PICC SKIN: No rashes NEUROLOGIC: Facial asymmetry, left sided weakness. Pupils are equal. Unable to elicit a motor response. Not following commands. ASSESSMENT NSTEMI, s/p three vessel CABG Respiratory failure, requiring tracheostomy and PEG tube placement Cerebrovascular accident post-operatively after CABG Paroxysmal atrial fibrillation after CABG, currently Afib History of coronary artery disease with previous myocardial infarction and stent placement Peripheral artery disease with lower extremity stenting History of Hypertension Hyperlipidemia History of lung cancer Acute liver injury, improving PLAN -Amiodarone was discontinued secondary to acute liver injury, GI recommendations appreciated, ultrasound unrevealing. -Continue oral anticoagulation -Continue Aspirin and Statin -Continue to monitor patient's neurologic status, supportive care. Prognosis is guarded. -Continue Lopressor 100 mg twice a day for rate control. Objective - Vital Signs Vital signs: Vital Signs Temp 98.8 F 08/11/20 04:00 Pulse 66 08/11/20 09:00 Resp 20 08/11/20 09:00 BP 108/47 08/11/20 09:00 Pulse Ox 95 08/11/20 09:00 Intake & Output 08/10/20 08/11/20 08/11/20 18:59 06:59 18:59 Intake Total 1567 1464 462 Output Total 1310 445 400 Balance 257 1019 62 Weight 93.3 kg 94.6 kg Intake: IV 650 750 150 Cefepime 2 gm In Sodium 100 Chloride 0.9% 100 ml @ 25 mls/hr IVPB Q12HR [facility] Rx #:[id number] Sodium Chloride 0.45% 1, 650 550 150 000 ml @ 50 mls/hr IV . Q20H [facility] Rx#:[id number] levETIRAcetam IV 500 mg 100 In Sodium Chloride 0.9% 100 ml @ 400 mls/hr IVPB Q12HR@0000,1200 [facility] Rx#: [id number] Tube Feeding 702 594 162 Other 215 120 150 Output: Urine 1310 445 400 Other: Voiding Method Indwelling Catheter Indwelling Catheter Indwelling Catheter ABP, PAP, CO, CI - Last Documented Arterial Blood Pressure 113/55 Pulmonary Artery Pressure 40/20 Cardiac Output 4.3 Cardiac Index 2.2 - Labs CBC & Chem 7: 08/11/20 04:45 08/11/20 04:45 Labs: Abnormal Lab Results - Last 24 Hours (Table) 08/10/20 08/10/20 08/11/20 Range/Units 11:46 18:03 00:25 WBC (3.8-10.6) k/uL RBC (3.80-5.40) m/uL Hgb (11.4-16.0) gm/dL Hct (34.0-46.0) % MCHC (31.0-37.0) g/dL RDW (11.5-15.5) % Plt Count (150-450) k/uL Neutrophils # (1.3-7.7) k/uL ABG pO2 (83-108) mmHg ABG HCO3 (21-25) mmol/L ABG Total CO2 (19-24) mmol/L BUN (7-17) mg/dL Creatinine (0.52-1.04) mg/dL Glucose (74-99) mg/dL POC Glucose (mg/dL) 136 H 141 H 144 H (75-99) mg/dL Calcium (8.4-10.2) mg/dL AST (14-36) U/L ALT (4-34) U/L Total Protein (6.3-8.2) g/dL Albumin (3.5-5.0) g/dL 08/11/20 08/11/20 08/11/20 Range/Units 04:45 04:45 05:17 WBC 16.9 H (3.8-10.6) k/uL RBC 2.50 L (3.80-5.40) m/uL Hgb 7.4 L (11.4-16.0) gm/dL Hct 24.0 L (34.0-46.0) % MCHC 30.9 L (31.0-37.0) g/dL RDW 16.2 H (11.5-15.5) % Plt Count 552 H (150-450) k/uL Neutrophils # 13.5 H (1.3-7.7) k/uL ABG pO2 82 L (83-108) mmHg ABG HCO3 28 H (21-25) mmol/L ABG Total CO2 29 H (19-24) mmol/L BUN 37 H (7-17) mg/dL Creatinine 0.49 L (0.52-1.04) mg/dL Glucose 142 H (74-99) mg/dL POC Glucose (mg/dL) (75-99) mg/dL Calcium 8.1 L (8.4-10.2) mg/dL AST 720 H (14-36) U/L ALT 1456 H (4-34) U/L Total Protein 5.4 L (6.3-8.2) g/dL Albumin 2.9 L (3.5-5.0) g/dL 08/11/20 08/11/20 Range/Units 06:23 08:04 WBC (3.8-10.6) k/uL RBC (3.80-5.40) m/uL Hgb (11.4-16.0) gm/dL Hct (34.0-46.0) % MCHC (31.0-37.0) g/dL RDW (11.5-15.5) % Plt Count (150-450) k/uL Neutrophils # (1.3-7.7) k/uL ABG pO2 (83-108) mmHg ABG HCO3 (21-25) mmol/L ABG Total CO2 (19-24) mmol/L BUN (7-17) mg/dL Creatinine (0.52-1.04) mg/dL Glucose (74-99) mg/dL POC Glucose (mg/dL) 134 H (75-99) mg/dL Calcium (8.4-10.2) mg/dL AST 622 H (14-36) U/L ALT 1412 H (4-34) U/L Total Protein (6.3-8.2) g/dL Albumin (3.5-5.0) g/dL Microbiology - Last 24 Hours (Table) 08/08/20 20:14 Gram Stain - Final Sputum Sputum Culture - Final Klebsiella oxytoca 08/09/20 11:50 Blood Culture - Preliminary Blood No Growth after 24 hours 08/09/20 11:29 Blood Culture - Preliminary Blood No Growth after 24 hours 08/08/20 11:05 Blood Culture Gram Stain - Preliminary Blood Blood Culture - Preliminary Coagulase Negative Staph
--- NOTE | 2020-08-11 11:15 | P.PN ---
Progress Note - Text Progress Note Date: 08/11/20 The patient's PEG tube dysfunction. Patient is clean. She will continue receive supportive care.
[2020-08-11 11:27] LABS: Glucose,Whole Blood 162 mg/dL (75-99)
--- NOTE | 2020-08-11 11:27 | P.PN ---
Subjective Progress Note Date: 08/11/20 Principal diagnosis: Triple-vessel coronary artery disease, unstable angina. Past medical history significant for coronary artery disease with previous myocardial infarction and stent placement, peripheral arterial disease with lower extremity stenting, lung cancer status post right lower lobectomy in 2011, hypertension, hyperlipidemia, COPD with previous tobacco dependence, anxiety/depression, family history of premature coronary artery disease with 2 of her sons having had coronary artery bypass grafting surgery, significant plaque formation more than 75% stenosis at the origins of both internal and external carotid arteries bilaterally on CTA. POD #15 coronary artery bypass grafting 3 vessels, left internal mammary artery to the left anterior descending artery, a reverse greater saphenous vein graft to the obtuse marginal artery, a reverse greater saphenous vein graft to the posterior descending artery, endoscopic harvesting of the right greater saphenous vein, ligation of the left atrial appendage using a 35 mm AtriClip, epi-aortic ultrasound and intraoperative transesophageal echocardiogram. POD #4 tracheostomy tube placement #[address] Alan. POD #4 EGD with her cutaneous endoscopic gastrostomy tube placement by Dr. Chavarria. Postoperative acute blood loss anemia, expected given hemodilution and cardiopulmonary bypass pump. Postoperative right acute/subacute cerebellar infarct on brain CT, unexpected, although possible complication of any open heart surgery, especially given patient's known history of significant arterial disease. Prolonged mechanical ventilation, unexpected, secondary to acute stroke. Paroxysmal atrial fibrillation, known common occurrence after open heart surgery. The patient was seen in follow-up today 08/11/2020 at her bedside in the intensive care unit. Her trach remains midline and intact with mechanical ventilator support in place, current mechanical ventilator settings are assist control 16, VC +450/0.80 FiO2 40% and a PEEP of 5. Oxygen saturations on current mechanical ventilator settings are 96%. ABG results this morning show a pH of 7.44, pCO2 41, pO2 82, HCO3 28, oxygen saturation 97% and base excess 3.4. Her T-max temperature in the last 24 hours is 100.2F and she is currently on cefepime for antibiotic coverage. She is also on Diflucan for Nick in her sputum culture on 08/05/2020. The antibiotics and Diflucan are managed by infectious disease. The patient has her eyes open, is moving her right upper extremity, but does not follow any verbal commands. She does try to her withdrawal from painful stimuli to her right upper extremity and bilateral lower extremities although just grimaces to painful stimuli to her left arm. She does not track with her eyes. PEG tube remains in place with vital high-protein to feeding infusing at goal rate of 54 mL per hour with automatic water flushes 30 mL every 4 hours. She remains on Eliquis 5 mg per PEG tube twice a day for ant icoagulation. Currently her bedside telemetry showing normal sinus rhythm heart rate 66 BPM. Da Silva catheter remains in place for accurate I's and O's, urine output in the last 8 hours was 300 mL. She remained hemodynamically stable and is currently on no inotropic or pressor support. Objective - Vital Signs Vital signs: Vital Signs Temp 98.8 F 08/11/20 04:00 Pulse 66 08/11/20 09:00 Resp 20 08/11/20 09:00 BP 108/47 08/11/20 09:00 Pulse Ox 95 08/11/20 09:00 Intake & Output 08/10/20 08/11/20 08/11/20 18:59 06:59 18:59 Intake Total 1567 1464 462 Output Total 1310 445 400 Balance 257 1019 62 Weight 93.3 kg 94.6 kg Intake: IV 650 750 150 Cefepime 2 gm In Sodium 100 Chloride 0.9% 100 ml @ 25 mls/hr IVPB Q12HR [facility] Rx #:[id number] Sodium Chloride 0.45% 1, 650 550 150 000 ml @ 50 mls/hr IV . Q20H [facility] Rx#:[id number] levETIRAcetam IV 500 mg 100 In Sodium Chloride 0.9% 100 ml @ 400 mls/hr IVPB Q12HR@0000,1200 [facility] Rx#: [id number] Tube Feeding 702 594 162 Other 215 120 150 Output: Urine 1310 445 400 Other: Voiding Method Indwelling Catheter Indwelling Catheter Indwelling Catheter ABP, PAP, CO, CI - Last Documented Arterial Blood Pressure 113/55 Pulmonary Artery Pressure 40/20 Cardiac Output 4.3 Cardiac Index 2.2 - Exam The patient remains with mechanical ventilator support, tracheostomy tube midli ne and in place. Her sedation has been on hold for around 96 hours. She has her eyes open and is awake,, moving her right upper extremity, although not following any verbal commands. Left sided extremities flaccid. Withdrawals from painful stimuli to her right upper extremity and bilateral lower extremities although grimaces only with painful stimuli to her left upper extremity. - Constitutional General appearance: Present: no acute distress - EENT EENT Comment(s): Scleral edema. Eyes: Present: PERRLA, normal appearance. Absent: scleral icterus - Neck Details: Neck is supple, no JVD, no lymphadenopathy. - Respiratory Details: Lung sounds with scattered rhonchi throughout, diminished bilateral bases. Respirations are symmetrical and nonlabored with mechanical ventilator support. Current mechanical ventilator settings are assist control 16, cc +450/0.80, 40% FiO2 and a PEEP of 5. ABG results this morning show a pH of 7.44, pCO2 41, pO2 82, HCO3 28, oxygen saturation 97% and base excess 3.4. Tracheostomy tube #[address] and midline. Oxygen saturation are 96% on current [facility] nical ventilator settings. - Cardiovascular Details: Regular rhythm and rate. S1 and S2 present, negative for S3, gallop or murmur. Sternum is stable. Heart hugger is in place. Bedside telemetry showing normal sinus rhythm heart rate 66 BPM. Generalized +1 edema. Left arm PICC line in place and functioning. Knee-high DEBI hose and sequential compression devices in place to bilateral lower extremities. - Gastrointestinal Gastrointestinal Comment(s): Abdomen is soft, nontender and nondistended. Active bowel sounds present in all 4 quadrants. No guarding or rigidity. Left upper quadrant abdominal PEG tube in place with continuous tube feedings vital high-protein at goal rate of 54 mL per hour with automatic water flushes 30 mL every 4 hours. Last bowel movement on 08/09/2020. - Genitourinary Genitourinary Comment(s): Da Silva catheter for accurate I&O. Draining clear yellow urine with 300 mL output last 8 hours. - Integumentary Integumentary Comment(s): Skin is warm and dry. No clubbing or cyanosis is present. Midline sternal incision is clean, dry and approximated. No drainage or redness is present. Right lower extremity EVH site is clean, dry and approximated. No drainage or redness present. - Neurologic Neurologic Comment(s): Awake with eyes open, is moving her right upper extremity, but does not follow any verbal commands. She does try to her withdrawal from painful stimuli to her right upper extremity and bilateral lower extremities although just grimaces to painful stimuli to her left arm. She does not track with her eyes. - Psychiatric Psychiatric Comment(s): Unable to accurately assess this time as the patient is mechanically ventilated with tracheostomy tube in place. Patient is not following any verbal commands at this time. - Allied health notes Allied health notes reviewed: nursing - Labs CBC & Chem 7: 08/11/20 04:45 08/11/20 04:45 Labs: Abnormal Lab Results - Last 24 Hours (Table) 08/10/20 08/10/20 08/11/20 Range/Units 11:46 18:03 00:25 WBC (3.8-10.6) k/uL RBC (3.80-5.40) m/uL Hgb (11.4-16.0) gm/dL Hct (34.0-46.0) % MCHC (31.0-37.0) g/dL RDW (11.5-15.5) % Plt Count (150-450) k/uL Neutrophils # (1.3-7.7) k/uL ABG pO2 (83-108) mmHg ABG HCO3 (21-25) mmol/L ABG Total CO2 (19-24) mmol/L BUN (7-17) mg/dL Creatinine (0.52-1.04) mg/dL Glucose (74-99) mg/dL POC Glucose (mg/dL) 136 H 141 H 144 H (75-99) mg/dL Calcium (8.4-10.2) mg/dL AST (14-36) U/L ALT (4-34) U/L Total Protein (6.3-8.2) g/dL Albumin (3.5-5.0) g/dL 08/11/20 08/11/20 08/11/20 Range/Units 04:45 04:45 05:17 WBC 16.9 H (3.8-10.6) k/uL RBC 2.50 L (3.80-5.40) m/uL Hgb 7.4 L (11.4-16.0) gm/dL Hct 24.0 L (34.0-46.0) % MCHC 30.9 L (31.0-37.0) g/dL RDW 16.2 H (11.5-15.5) % Plt Count 552 H (150-450) k/uL Neutrophils # 13.5 H (1.3-7.7) k/uL ABG pO2 82 L (83-108) mmHg ABG HCO3 28 H (21-25) mmol/L ABG Total CO2 29 H (19-24) mmol/L BUN 37 H (7-17) mg/dL Creatinine 0.49 L (0.52-1.04) mg/dL Glucose 142 H (74-99) mg/dL POC Glucose (mg/dL) (75-99) mg/dL Calcium 8.1 L (8.4-10.2) mg/dL AST 720 H (14-36) U/L ALT 1456 H (4-34) U/L Total Protein 5.4 L (6.3-8.2) g/dL Albumin 2.9 L (3.5-5.0) g/dL 08/11/20 08/11/20 Range/Units 06:23 08:04 WBC (3.8-10.6) k/uL RBC (3.80-5.40) m/uL Hgb (11.4-16.0) gm/dL Hct (34.0-46.0) % MCHC (31.0-37.0) g/dL RDW (11.5-15.5) % Plt Count (150-450) k/uL Neutrophils # (1.3-7.7) k/uL ABG pO2 (83-108) mmHg ABG HCO3 (21-25) mmol/L ABG Total CO2 (19-24) mmol/L BUN (7-17) mg/dL Creatinine (0.52-1.04) mg/dL Glucose (74-99) mg/dL POC Glucose (mg/dL) 134 H (75-99) mg/dL Calcium (8.4-10.2) mg/dL AST 622 H (14-36) U/L ALT 1412 H (4-34) U/L Total Protein (6.3-8.2) g/dL Albumin (3.5-5.0) g/dL Microbiology - Last 24 Hours (Table) 08/08/20 20:14 Gram Stain - Final Sputum Sputum Culture - Final Klebsiella oxytoca 08/09/20 11:50 Blood Culture - Preliminary Blood No Growth after 24 hours 08/09/20 11:29 Blood Culture - Preliminary Blood No Growth after 24 hours 08/08/20 11:05 Blood Culture Gram Stain - Preliminary Blood Blood Culture - Preliminary Coagulase Negative Staph - Imaging and Cardiology Chest x-ray: report reviewed, image reviewed Assessment and Plan Assessment: 1. Triple-vessel coronary artery disease, unstable angina, status post three- vessel CABG 2. History of coronary artery disease with previous myocardial infarction and stent placement 3. Peripheral arterial disease with lower extremity stenting 4. History of lung cancer status post right lower lobectomy 5. Hypertension, currently hypotensive requiring IV pressors 6. Hyperlipidemia, treated, cholesterol 152, LDL 85 7. COPD with previous tobacco dependence, preoperative FEV1 82% of predicted 8. Anxiety/depression 9. Family history of premature coronary artery disease 10. Postoperative acute blood loss anemia, expected, status post 1 unit packed red blood cell transfusion 11. Postoperative acute/subacute right cerebellar infarct, unexpected, with evidence of previous right parietal stroke 12. Bilateral internal carotid artery disease greater than 75% present on CTA 13. Prolonged mechanical ventilation, unexpected acute hypoxemic respiratory failure because of her recent CVA, status post tracheostomy placement 14. Paroxysmal atrial fibrillation, status post ligation of the left atrial appendage, currently sinus rhythm 15. Leukocytosis, final sputum culture results shows Klebsiella oxytoca and Nick albicans 16. Malnutrition, status post percutaneous endoscopic gastrostomy tube placement 17. Elevated transaminase enzymes, likely secondary to amiodarone and Lipitor which are currently on hold, liver enzymes continue to trend down Plan: 1. Continue aspirin, and beta tran. Continue Metoprolol tartrate 100 per G- tube twice. 2. Lasix 40 mg IV [address] Roger. 3. Mechanical ventilator management per pulmonology/critical care management. Bronchodilators per pulmonology/critical care management. 4. The patient son Christian has been updated on her care. 5. Continue to monitor daily labs and chest x-rays. Electrolyte replacement per protocol. 6. GI and DVT prophylaxis. 7. Continue to hold amiodarone and statin due to her elevated liver enzymes. Liver enzymes trending down today. We will restart her statin once her liver enzymes have normalized. 8. Continue Da Silva catheter and record accurate I's and O's. The catheter was exchanged on 08/08/2020. 9. Pain control with current when necessary orders. 10. Strict accurate intake and output. Daily weights 11. Final result of sputum culture showing Klebsiella oxytoca from 08/05/2020, currently on cefepime for antibiotic treatment. Also on Diflucan for positive nick in her sputum culture on 08/05/2020. T-max temperature in the last 24 hours 100.2F. WBC count today is 21.2 which is trending down. Blood culture from 08/08/2020 pulmonary result showing gram-positive cocci in clusters. Awaiting final result. She was started on vancomycin yesterday 08/09/2020 with pharmacy to dose. Sputum culture from yesterday 08/08/2020 shows gram-negative bacilli. 12. Antibiotic management per infectious disease recommendations. 13. Continue Eliquis 5 mg per PEG tube twice a day for anticoagulation. 14. 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 Luong from neurology. 15. More recommendations to follow based on patient's clinical course. Time with Patient: Greater than 30
[2020-08-11] MEDS: ACETAMINOPHEN TAB 325 MG TAB PEG/G-TUBE PRN ×2 (12:18→20:02)
[2020-08-11 15:53] LABS: AST 456 U/L (14-36); African American GFR (CKD) >90 (>60 ml/min/1.73 sqM); Albumin 2.8 g/dL (3.5-5.0); Alkaline Phosphatase 112 U/L (38-126); Anion Gap 7 mmol/L; Blood Urea Nitrogen 38 mg/dL (7-17); Calcium 7.9 mg/dL (8.4-10.2); Carbon Dioxide 28 mmol/L (22-30); Chloride 106 mmol/L (98-107); Glucose 134 mg/dL (74-99); Non-African American GFR(CKD) >90 (>60 ml/min/1.73 sqM); Potassium 3.6 mmol/L (3.5-5.1); Sodium 141 mmol/L (137-145); Total Bilirubin 0.6 mg/dL (0.2-1.3); Total Protein 5.3 g/dL (6.3-8.2)
[2020-08-11] MEDS: SODIUM CHLORIDE 0.45% 1,000 ML IV SCH (16:04)
[2020-08-11 16:07] LABS: ALT 1159 U/L (4-34)
[2020-08-11 17:31] LABS: Glucose,Whole Blood 155 mg/dL (75-99)
[2020-08-11] MEDS: SENNOSIDES-DOCUSATE SODIUM 1 EACH TAB PO SCH (20:02)
[2020-08-11] MEDS: LOSARTAN 25 MG TAB PO SCH (20:03)
--- NOTE | 2020-08-11 22:27 | P.PN ---
Progress Note - Text Progress Note Date: 08/11/20 Chief Complaint: Chest pain History of presenting complaint: This is a pleasant 75-year-old patient of Dr. Derrick Neal. Chronic stable medical conditions include COPD, hyperlipidemia, hypertension, ostial arthritis, lung cancer 6 years ago, peripheral artery disease, coronary artery stent, peripheral stents, anxiety depression. Patient presented after she was having central chest pressure at home then went to both the shoulder blades for the arms. Patient became nauseated. No dizziness or lightheadedness. She shortness of breath. No perspiration. Symptoms most lost about 40 minutes she was taken to [facility]. She was similar episode about 2 weeks ago. Transferred down here. Has some lower extremity edema Admitted with unstable angina. underwent cardiac catheterization. Found to have severe triple-vessel coronary artery disease. July 27-underwent coronary bypass 3, ligation of left atrial appendage. Patient received a unit of blood.postsurgery was found to have weakness on the left side.stroke was noted on the computed tomography scan. Including lacunar infarct.patient has been in and out of atrial fibrillation. computed tomography scan of the brain reviewed by Dr. Carrion: Acute bilateral cerebellar ischemic stroke as well as subacute evolving ischemic infarction involving the right MCA/TAZ watershed territory left caudate head ischemic infarction. [place] to be embolic. Today-ICU- ventilator: FiO2 40 and a PEEP of 5. Right-sided nonpurposeful movement. Some respond to deep painful stimuli. Sinus rhythm. 2 feeding at 54 mL an hour. Slight blood through the tracheostomy tube. Review of systems: Patient intubated Active Medications Acetaminophen (Acetaminophen Tab 325 Mg Tab) 650 mg PEG/G-TUBE Q6HR PRN PRN Reason: Fever and/ or Pain Last Admin: 08/11/20 20:02 Dose: 650 mg Documented by: Albuterol/Ipratropium (Ipratropium-Albuterol 3 Ml Neb) 3 ml INHALATION RT-Q2H PRN PRN Reason: Shortness Of Breath Or Wheezing Last Admin: 08/11/20 19:42 Dose: 3 ml Documented by: Apixaban (Apixaban 5 Mg Tab) 5 mg PEG/G-TUBE BID [facility] Last Admin: 08/11/20 20:03 Dose: 5 mg Documented by: Aspirin (Aspirin 81 Mg) 81 mg PO DAILY [facility] Last Admin: 08/11/20 08:36 Dose: 81 mg Documented by: Benzocaine/Menthol (Benzocaine/Menthol Lozeng 1 Each Lozenge) 1 each MUCOUS MEM Q2H PRN PRN Reason: Sore Throat Bisacodyl (Bisacodyl 10 Mg Supp) 10 mg RECTAL DAILY PRN PRN Reason: Constipation Last Admin: 08/04/20 08:47 Dose: 10 mg Documented by: Chlorhexidine Gluconate (Chlorhexidine Gluconate 15 Ml Cup) 15 ml MUCOUS MEM BID [facility] Last Admin: 08/11/20 20:02 Dose: 15 ml Documented by: Fluconazole (Fluconazole 100 Mg Tab) 100 mg PO DAILY [facility] Last Admin: 08/11/20 08:36 Dose: 100 mg Documented by: Hydralazine HCl (Hydralazine Hcl 20 Mg/Ml 1 Ml Vial) 10 mg IVP Q6HR PRN PRN Reason: Blood Pressure - High Last Admin: 08/11/20 16:36 Dose: 10 mg Documented by: Levetiracetam 500 mg/ Sodium (Chloride) 105 mls @ 400 mls/hr IVPB Q12HR@0000,1200 [facility] Last Admin: 08/11/20 11:36 Dose: 400 mls/hr Documented by: Sodium Chloride (Saline 0.45%) 1,000 mls @ 50 mls/hr IV .Q20H [facility] Last Admin: 08/11/20 16:04 Dose: 50 mls/hr Documented by: Cefepime HCl 2 gm/ Sodium (Chloride) 100 mls @ 25 mls/hr IVPB Q12HR [facility] Last Admin: 08/11/20 20:03 Dose: 25 mls/hr Documented by: Insulin Aspart (Insulin Aspart (Novolog) 100 Unit/Ml Vial) 0 unit SQ Q6HR [facility]; Protocol Last Admin: 08/11/20 17:33 Dose: 1 unit Documented by: Losartan Potassium (Losartan 25 Mg Tab) 25 mg PO HS [facility] Last Admin: 08/11/20 20:03 Dose: 25 mg Documented by: Magnesium Hydroxide (Magnesium Hydroxide 2,400 Mg/10 Ml Cup) 2,400 mg PO BID PRN PRN Reason: Constipation Metoclopramide HCl (Metoclopramide 5 Mg/Ml 2 Ml Vial) 10 mg IVP Q4H PRN PRN Reason: Nausea And Vomiting Metoprolol Tartrate (Metoprolol Tartrate 50 Mg Tab) 100 mg PO BID [facility] Last Admin: 08/11/20 20:03 Dose: 100 mg Documented by: Miscellaneous Information (Magnesium Replacement Protocol 1 Each Misc) 1 each MISCELLANE DAILY PRN; Protocol PRN Reason: Per Protocol Miscellaneous Information (Phosphorus Replacement Protoco 1 Each Misc) 1 each MISCELLANE DAILY PRN; Protocol PRN Reason: Per Protocol Miscellaneous Information (Potassium Replacement Protocol 1 Each Misc) 1 each MISCELLANE DAILY PRN; Protocol PRN Reason: Per Protocol Multi-Ingred Cream/Lotion/Oil/Oint (Artificial Tears Ointment 3.5 Gm Tube) 1 applic BOTH EYES Q4H [facility] Last Admin: 08/11/20 20:02 Dose: 1 applic Documented by: Ondansetron HCl (Ondansetron 4 Mg/2 Ml Vial) 4 mg IVP Q6HR PRN PRN Reason: Nausea And Vomiting Last Admin: 08/09/20 03:43 Dose: 4 mg Documented by: Pantoprazole Sodium (Pantoprazole 40 Mg/10 Ml Vial) 40 mg IVP DAILY [facility] Last Admin: 08/11/20 08:36 Dose: 40 mg Documented by: Senna/Docusate Sodium (Sennosides-Docusate Sodium 1 Each Tab) 2 each PO HS [facility] Last Admin: 08/11/20 20:02 Dose: 2 each Documented by: Sertraline HCl (Sertraline 100 Mg Tab) 100 mg PO DAILY [facility] Last Admin: 08/11/20 08:36 Dose: 100 mg Documented by: Sodium Chloride (Sodium Chloride 0.9% Flush 10 Ml Syringe) 10 ml IV BID [facility] Last Admin: 08/11/20 20:03 Dose: 10 ml Documented by: Past medical history to include: CHF, COPD, hyperlipidemia, hypertension, coronary artery disease with stent, osteoporosis, lung cancer 6 years ago, peripheral arterial disease, anxiety depression Social history: Lives with her son. Smoked a pack a day since the teenage years. Stop in 2011. Some alcohol in the past Physical examination: VITAL SIGNS: 100.7, 82, 22, 166/73, 97% on the ventilator GENERAL: Laying in bed, intubated, sedated EYES: Pupils equal. Conjunctiva normal. HEENT: External appearance of nose and ears normal, oral cavity endotracheal tube. NECK: JVD unable to assess; masses not palpable. HEART: First and second heart sounds are normal; no edema. LUNGS: Respiratory rate increased; decreased breath sounds. ABDOMEN: Soft, nontender, liver spleen not palpable, no masses palpable. Da Silva catheter NEUROLOGICAL: Non-purposeful movement of the right arm right leg. PSYCH: Unable to assess MUSCULOSKELETAL: Evidence of OA Investigations: August 11: Potassium 3.6 creatinine 0.5 for AST 456 ALT 1159 August 10: WBC 17.7 hemoglobin 7.9 platelets 617 potassium 3.5 crit 0.58 AST 85040 ALT 1971 Computed tomography scan of the brain: Age related changes but chronic small vessel disease. July 22: Potassium 4.1 creatinine 0.97 proBNP 1270 Cardiac xzufwudxcyjydlg-[id number]-evfgvb disease 2-D echocardiogram-moderate concentric LVH, EF 50-55% hypokinetic galicia Troponin I 0.018, 0.012 Coronavirus [PCR]-not detected EKG tracing personally reviewed by me-normal sinus rhythm, PVC Assessment and plan: -Coronary artery bypass [id number] July 27. On Plavix, Lopressor, Zetia -Acute postprocedure blood loss anemia, as expected from surgery, received 1 unit of blood -Hypotensive shock from volume loss patient was on levo -improved -Likely 6 ischemic hepatitis. Slowly improving. -Unstable angina, POA -Triple-vessel coronary artery disease -. Plavix, Lopressor, Zetia -Acute on chronic congestive heart diastolic dysfunction EF 50-55% received IV Lasix. Stabilized. Follow clinically -COPD in a previous smoker, on DuoNeb -Hyperlipidemia, continue Lipitor -Essential hypertension, follow closely -Primary osteoarthritis, take Tylenol when necessary -History of lung cancer 6 years ago -Peripheral arterial disease with stenting, on aspirin and Plavix -Anxiety depression otherwise specified-on Zoloft -Chronic insomnia continue with melatonin -Paroxysmal atrial fibrillation.in and out of rapid atrial fibrillation - on IV amiodarone -Acute bilateral cerebellar ischemic stroke as well as subacute evolving ischemic infarction involving the right MCA/TAZ watershed territory left caudate head ischemic infarction. [place] to be embolic./post surgical-slow to respond Patient remains on the ventilator. On DuoNeb, when necessary, eliquis, aspirin, IV cefepime, IV Keppra, half saline at 50 mL an hour. Prognosis guarded
[2020-08-11 23:42] LABS: Glucose,Whole Blood 134 mg/dL (75-99)
[2020-08-12] MEDS: hydrALAZINE HCL 20 MG/ML 1 ML VIAL IVP PRN ×2 (00:39→17:53)
[2020-08-12] MEDS: ARTIFICIAL TEARS OINTMENT 3.5 GM TUBE BOTH EYES SCH ×5 (03:57→20:06)
[2020-08-12 04:57] LABS: Anisocytosis Slight; Basophils # (A) 0.1 k/uL (0-0.2); Basophils % (A) 1 %; Eosinophils # (A) 0.4 k/uL (0-0.7); Eosinophils % (A) 2 %; HCT 25.9 % (34.0-46.0); Hypochromasia Moderate; Lymphocytes # (A) 2.3 k/uL (1.0-4.8); Lymphocytes % (A) 13 %; MCH 29.9 pg (25.0-35.0); MCHC 31.1 g/dL (31.0-37.0); MCV 96.4 fL (80.0-100.0); Macrocytosis Slight; Mean Platelet Volume 7.8; Monocytes # (A) 1.3 k/uL (0-1.0); Monocytes % (A) 7 %; Neutrophils # (A) 13.2 k/uL (1.3-7.7); Neutrophils % (A) 76 %; Platelet Count 550 k/uL (150-450); Poikilocytosis Slight; RBC 2.68 m/uL (3.80-5.40); RDW 17.3 % (11.5-15.5); WBC 17.5 k/uL (3.8-10.6)
[2020-08-12 05:05] LABS: AST 287 U/L (14-36); African American GFR (CKD) >90 (>60 ml/min/1.73 sqM); Albumin 3.1 g/dL (3.5-5.0); Alkaline Phosphatase 126 U/L (38-126); Anion Gap 8 mmol/L; Blood Urea Nitrogen 39 mg/dL (7-17); Calcium 8.4 mg/dL (8.4-10.2); Carbon Dioxide 28 mmol/L (22-30); Chloride 106 mmol/L (98-107); Glucose 141 mg/dL (74-99); Non-African American GFR(CKD) >90 (>60 ml/min/1.73 sqM); Potassium 3.6 mmol/L (3.5-5.1); Sodium 142 mmol/L (137-145); Total Bilirubin 0.9 mg/dL (0.2-1.3); Total Protein 5.9 g/dL (6.3-8.2)
[2020-08-12 05:38] LABS: ABG HCO3 28 mmol/L (21-25); ABG Oxygen Saturation 98.3 % (94-97); ABG PCO2 40 mmHg (35-45); ABG PH 7.45 (7.35-7.45); ABG PO2 89 mmHg (83-108); ABG TCO2 29 mmol/L (19-24); Allen Test Performed? Yes
[2020-08-12 05:56] LABS: ALT 1022 U/L (4-34)
[2020-08-12 05:57] LABS: Glucose,Whole Blood 148 mg/dL (75-99)
[2020-08-12] MEDS: INSULIN ASPART (NovoLOG) 100 UNIT/ML VIAL SQ SCH ×3 (06:20→19:26)
[2020-08-12] MEDS ORDERED: FUROSEMIDE 10 MG/ML 4 ML VIAL IV STA (06:44)
--- NOTE | 2020-08-12 06:44 | P.PN ---
Subjective Progress Note Date: 08/12/20 Coronary artery disease status post coronary artery bypass grafting Patient was reevaluated today on 07/28/2020, remains intubated and mechanically ventilated. Patient is now on assist control mode of mechanical ventilation with a rate of 16, volume is 450 FiO2 is 50% and PEEP of 5. Unfortunately the p atjuan was noted to have poor movement of her left upper and left lower extremity last night, CT of the head last night showed acute/subacute area of infarction in the right cerebellum along with probable area of chronic infarction in the right parietal region I evaluated the patient this morning, s eems to be extremely restless and agitated, seems to be neglecting the left side, and both eyes are deviated to the right and upwards. Patient seems to be moving her right side quite well, however the left side seems to be relatively weak although she was squeezing my hand with her left hand. And minimal movement noted in the left lower extremity. Patient is on Precedex, and seems to be agitated in spite of Precedex. Her ventilatory settings are reasonable, ABG is reasonable, patient is basically extubate overall, however her mental status is a bit concerning specially with her extreme agitation, keeps pulling and shaking the railing of the bed on the right side. Patient was given Ativan, and I have recommended increasing Precedex. She is not truly quite ready to be extubated today. Again my major concern is her mental status. And she is yet to be seen by neurology on consultation. Blood pressure is quite high, 160 systolic, norepinephrine was discontinued during my evaluation. She was on a very minimal dose of 0.1 mcg/kg/m of norepinephrine patient was also on milrinone. CBC is relatively normal hemoglobin is 7.4. ABG this morning showed a pO2 of 92 pCO2 of 38 pH of 7.45. This was on 50% FiO2. Electrolytes and renal profile are normal. Chest x-ray showed mostly postoperative changes of CABG 07/29/2020, I'm seeing the patient for a follow-up in the intensive care unit. This morning the patient is heavily sedated with propofol and she is calm and comfortable. Unfortunately with that, neurologic examination is not possible. I would suggest gradually cutting down the propofol and assess her neuro status and if needed utilize Precedex as an alternative sedative drip. Meanwhile, the patient remains essentially with enema to severe with a low dose of norep inephrine infusion running at 0.06 mcg/kg per minute. She has an adequate urine output. Cardiac rhythm is sinus. She has a left pleural and mediastinal chest tubes and output from those are in order of minimal, less than 100 over the past 24 hours. The chest x-ray showing cardiomegaly. There is some kyphoscoliosis of the chest. Chest tubes are in good location. ET tube is in good location. Atelectatic changes and some mild four-vessel congestion. Meanwhile, the patient's vent settings include an assist-control mode at the rate of 16 with a tidal volume of 450 and FiO2 of 40% with a PEEP of 5. The blood gases from this morning showed a pH of 7.49 with a pCO2 of 36 and pO2 of 82. On today's blood work, the patient's hemoglobin is down to 6.9 from 7.4. Platelets is at 210. 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 Intracranial cerebral arteries were essentially patent with nothing significantly stenotic. During our limited neurologic evaluation, the patient did not do mistreat any withdrawal with to painful stimulation. No Babinski. No clonus. Nevertheless, I was told by the nursing staff that she was able to move her right side yesterday and her left side once off sedation. Pupils are equal and reactive to light and order of 3 mm. No preferential gaze on today's evaluation. A sedation holiday will be given. She is on enteral nutrition. No other drips. No seizure activity. Neurologist on the case. She is on aspirin, Plavix, and she also on metoprolol 12.5 mg by mouth twice a day. She is also on high-dose statins. Progress note dated 05/29/2021. Currently, this is a 75-year-old female who was admitted to the hospital on July 21. She went to the operating room, on July 27 for a three-vessel bypass grafting with Dr. Alan. The patient has never been extubated. Unfortunately, she developed a right cerebellar CVA. She remains on the mechanical ventilator. She is currently on the volume assist control mode, rate is 16, tidal volume 400, FiO2 60%, and PEEP of 5. The blood gases show a PaO2 of 99, a PaCO2 of 40, and a pH of 7.44. She also remains on lactated Ringer's at 20 mL an hour, propofol was turned off for the spontaneous breathing trial, and she's been weaned off of norepinephrine. She is receiving vital AF, at a rate of 30 mL an hour, with a goal of 57 mL an hour. We placed the patient on pressure support of 5 CPAP of 5, and stayed in the room to observe her response to the spontaneous breathing trial. Unfortunately, the patient's respiratory rate went up above 40, and a tidal volumes dropped down to 200 range. Her m inute volume was quite high, and the patient was placed back on the volume assist control mode. After the failed spontaneous breathing trial, the patient's tidal volume was dropped down to 350, her FiO2 was decreased to 50%, and the peak level was increased from 5 to 8 cm water. White count is 12.8, hemoglobin 8, hematocrit 23.5, and platelet count 210,000. Blood gases have been reviewed. Sodium 139, potassium 3.6, chlorides 107, CO2 27, anion gap 5, BUN 33, and creatinine 0.64. Chest x-ray shows a right lower lobe infiltrate and my opinion. Progress note dated 07/31/2020 75-year-old female, that was admitted to the hospital on July 21. She went to the operating room on July 27 for a three-vessel bypass grafting with Dr. Alan. The patient has never been extubated and unfortunately, she developed a right cerebellar CVA. She currently remains on the ventilator, on the volume assist control modality. She is on a rate of 16, tidal volume 350, FiO2 50%, and a PEEP of 8. Arterial blood gases show a PaO2 of 76, PaCO2 44, and a pH of 7.4. The patient is getting lactated Ringer's at KVO, amiodarone at 0.5 mg/m, and propofol at 30 mcg/kg/m. In addition, the patient's on vital AF 1.2 at 57, with a goal of 57 mL an hour. Today, we attempted a daily interruption of se dation and a spontaneous breathing trial. As noted yesterday, she failed her trial. Today, we placed her on PSV 8, and CPAP of 5. Currently, she is doing a bit better today. A Dobbhoff tube was placed yesterday. Unfortunately, she appears to be weaker on the right side. The left side she does not move at all. In the end, she may end up with the tracheostomy tube and a ET tube. Yesterday, after the spontaneous breathing trial, the patient unfortunately developed atrial fibrillation with RVR, and that is why the patient is on amiodarone. The patient is seen today 08/01/2020 in follow-up in the intensive care unit. She remains intubated on the mechanical ventilator. Current settings assist- control of with a rate of 16, tidal volume 350, FiO2 50% and a PEEP of 8. Morning blood gases reveal a P O2 of 77, pCO2 of 40, pH 7.47. She remains sedated on propofol at 30 mcg/kg/m. Lactated Ringer's at KVO. She developed atrial fibrillation with rapid ventricular response. She is currently on amiodarone at 0.5 mg/m. She is being nourished with vital HP at 20 ML's per hour which is goal. She was given daily interruption of sedation. She develops A. fib RVR during a spontaneous breathing trials yesterday. We'll trial again today. His chest x-ray continues to show stable diffuse pleuroparenchymal changes. Endotracheal tube and gastric tubes are secured in place. Left-sided chest tube has been removed. PICC line in place. She is status post 1 unit of packed red blood cells this admission. Current hemoglobin 7.1. White count 13.6. Sodium 136. Potassium 3.5. Creatinine 0.55. AST 107. ALT 105. Albumin 2.7. She is continued on DuoNeb inhalations. Heparin for DVT prophylaxis. The patient is seen today 08/02/2020 in follow-up in the intensive care unit. She remains intubated and sedated. Currently on mechanical ventilator assist control mode at a rate of 16. Tidal volume 350. FiO2 40%. PEEP of 8. Morning blood gases reveal a P O2 of 100, pCO2 38, pH 7.49. This is on 50% FiO2. She is currently sedated on propofol at 35 mcg/kg/m. She remains on heparin drip. 0.9 normal saline at 20 ML's per hour. She is being nourished with vital HP 20 ML's per hour which is goal. She was given daily interruption of sedation yesterday she became extremely tachypneic with a respiratory rate in the 40s, not following any commands. Placed back on assist control. Trial again today. She has been having issues with atrial fibrillation. Transitioned to oral amiodarone. Chest x-ray reveals left-sided PICC line in place. Endotracheal and gastric tubes are stable. Vertebral column stimulator in place. There are bilateral infiltrates/pleural effusions. Diffusion interstitial pattern. No pneumothorax. She has received 1 unit of packed red blood cells this admission. Current hemoglobin 7.6. Platelets 387. White count 20.6. Sodium 137. Potas sium 3.9. Creatinine 0.50. AST 67. ALT 83. Albumin 2.8. The patient is seen today 08/03/2020 in follow-up in the intensive care unit. Postoperative day #7. She remains intubated and sedated on the mechanical ventilator. Current mode assist control with a rate of 16, tidal been 350, FiO2 40% and a PEEP of 8. Morning blood gases reveal pO2 of 90, pCO2 40, pH 7.49. Currently on propofol at 20 mcg/kg/m. Remains on heparin drip at weight-based protocol. Lactated Ringer's at 20 ML's per hour. She is being nourished with vital HP at 28 ML's per hour which is goal. Free water flushes at 30 MLS every 4 hours. Sputum culture pending. White count 20.5. Hemoglobin 7.7. Sodium 139. Potassium 3.9. Creatinine 0.53. AST 70, ALT 80. She remains on DuoNeb inhalations. Chest x-ray reveals good placement of the endotracheal tube and Dobbhoff tubes. Left sided PICC line in place. Bibasilar densities persist. Perihilar increase attenuation noted within the lungs, left hemidiaphragm remains obscured greater than right. Currently afebrile. Hemodynamically stable. Currently in atrial fibrillation with controlled ventricular rate. She responds to painful stimuli on the right. She did sustain an acute bilateral cerebellar ischemic stroke right greater than left as well as a subacute evolving ischemic infarction including the right MCA/TAZ watershed territory with left-sided hemiplegia. She has not tolerated daily interruption of sedation due to her becoming tachypneic, tachycardic and hypertensive. The patient is seen today 08/04/2020 and follow-up in the intensive care unit. Postoperative day #8. She remains intubated and sedated on mechanical ventilator. Current settings assist-control at a rate of 16, tidal volume 350, FiO2 40%, PEEP of 5. Blood gases reveal a P O2 of 81, pCO2 38, pH 7.51. She remains on propofol at 25 mcg/kg/m. Heparin per weight base protocol. Lactated Ringer's at 20 ML's per hour. She is being nourished with vital HP at 20 mL per hour which is goal. She is spontaneously moving her right arm and right leg. Not following any simple commands. She is status post 1 unit of packed red blood cells this admission. Current hemoglobin 6.9. White count 19.4. Sodium 138. Potassium 3.7. Creatinine 0.71. AST 117, ALT 106. Albumin 2.7. She was given a interruption of sedation and spontaneous breathing trial yesterday. She did develop atrial fibrillation with rapid ventricular response with hypertension, tachypnea. Placed back on mechanical ventilator. We'll trial again today. Plan is for possible tracheostomy and PEG tube placements on 08/06/2020. Chest x-ray continues to show cardiomegaly with mild central venous congestion and left greater than right bibasilar acute infiltrates. Small left pleural effusion. No significant change compared to previous. Sputum culture reveals no growth. Blood culture reveals no growth. She remains on bronchodilators, ceftriaxone. The patient is seen today 08/05/2020 in follow-up in the intensive care unit. Postoperative day #9. She remains intubated, sedated on the mechanical ventilator. Assist-control mode at a rate of 16, tidal been 350, FiO2 40% and a PEEP of 5. Morning blood gases reveal a P O2 of 66, pCO2 38, pH 7.4. She remains on a heparin drip or weight base protocol. Lactated Ringer's at 20 ML's per hour. Propofol at 40 mcg/kg/m. She is being nourished with vital HP at 28 ML's per hour which is goal. Chest x-ray reveals evidence of cardiomegaly with moderate central vascular congestion and left basilar small pleural effusion with associated acute infiltrate and/or atelectasis. A bit worse compared to yesterday. She was given Lasix 20 mg IVP 1. Remains on bronchodilators and on ceftriaxone. Repeat sputum culture pending. Status post 2 units of packed red blood cells this admission. White count 16.6. Hemoglobin 7.6. Sodium 137. Potassium 3.7. Creatinine 0.60. AST 142. ALT 156. Albumin 2.6. Glucose 106. Amiodarone was discontinued due to elevated LFTs. Currently rate-controlled atrial fibrillation. On 08/06/2020 him on seeing the patient for a follow-up in the intensive care unit. This patient is currently postop day number not 10. She had a comfort care postoperative course following her bypass surgeon and the patient had developed a stroke with altered mentation and she never got to a point where she was awake and alert and following commands and as such her extubation process of eating was quite complicated. She was always agitated, restless, not following commands and not following the weaning protocols. As such, the patient was kept sedated and the patient was kept on a mechanical ventilator. She had received daily sedation holidays. She is at the point where she is going to have a PEG and trach today done by general surgery. Meanwhile, the patient is on propofol running at 50 mcg/kg per minute and this morning she is calm and comfortable. She is on assist-control mode at the rate of 60 with a tidal volume of 350 and FiO2 of 40% with a PEEP of 5. The blood gases from today showed a pH of 7.4 With a pCO2 of 40 and pO2 of 71. Hemoglobin is at 7.3 and the patient received a unit of packed RBC on 08/04/2020 and hemoglobin has remained stable since. The patient had some mild disturbance in the liver function tests. Amiodarone has been discontinued. Current cardiac rhythm is sinus. The patient is on no pressors. The patient currently is receiving IV fluids in the form of D5 half-n ormal along with potassium supplements at the rate of 40 mL an hour. Neurologically, she does have a pressure gaze to the right upper quadrant area. Pupils are equal and reactive to light. She withdraws to painful similar ablation 04 extremities. Neurologist on the case. She does have a Dobbhoff and the patient is receiving enteral feeding in the form of vital high protein and currently the tube feeds on hold pending surgery. Blood sugars under adequate control. Urine output is adequate. 08/07/2020, I'm seeing the patient for a follow-up. The patient is postop day #11. The patient remains on a mechanical ventilator. Because of her prolonged arrest 30 failure and altered mental status post CVA, the patient required to have a PEG tube insertion and tracheostomy tube insertion. The procedure was done yesterday and today patient is postop day #1 post tracheostomy tube insertion. She is currently on assist control mode at the rate of 60 without a volume of 350 and FiO2 of 40% with a PEEP of 5. Blood gases showed a pH of 7.29 with a pCO2 of 45 and pO2 of 76. Hematocrit ventilation on the mechanical ventilator is around 8.5. The chest x-ray from today shows adequate positioning of the tracheostomy tube. The patient has a #[address] in place[address] The patient has a left upper extremity PICC line. The patient has some mild pulmonary vascular congestion. There is cardiomegaly. Trace left-sided pleural effusion. No other abnormalities noted. Meanwhile, as the patient was being weaned off the propofol, the patient was at atrial fibrillation with rapid ventricular response around 10 PM. The patient currently is on propofol of 25 mcg/kg per minute. The patient's is being treated with amiodarone drip. She was started with a bolus and following that she is was maintained on 0.5 mg per minute. Her current rate is 118 and still irregular. White cell count is at 21.6 and hemoglobin is at 8.6. Renal function is stable with a creatinine of 0.57, nevertheless, the patient has developed a component of metabolic acidosis with a serum bicarbonate up from 31 down to 20 and the liver function tests remain to be of normal with a bilirubin of 0.7, AST of 80, AST of 124. Her pro- calcitonin from 08/03/2020 was 0.12. IV fluids are running with D5 half-normal saline at the rate of 60 and the patient is nothing by mouth for now. The plan is to start some enteral feeding for nutritional support. In terms of her atrial fibrillation, the patient is on amiodarone drip and she is also on metoprolol 25 mg by mouth 3 times a day. 08/08/2020 I'm seeing the patient for a follow-up on postop day #12. Remains completely unresponsive despite being off sedation for the past 24-48 hours. She is post tracheostomy tube insertion and on today's evaluation the patient's chest x-ray shows no interval change and the patient has adequate positioning of the tracheostomy tube With some small trace bilateral pleural effusion and lung bases and some scattered bilateral pulmonary infiltrates. The patient has grown Klebsiella and Lali in his sputum and the patient remains on IV Rocephin for now. She is afebrile. Her white cell count has gone up to 24. The blood gases from today shows a pH of 7.43 with a pCO2 of 34 and pO2 of 74. After recovering from her atrial fibrillation, earlier this morning while taking a bath, the patient slipped back into A. fib RVR. Her current heart rate is somewhere between 100 and 115. She remains on IV heparin. She is on oral amiodarone at a dose of 200 mg by mouth twice a day and the patient is also on metoprolol 50 mg by mouth twice a day. Morning medication has not been given yet. No seizure activity. No sedatives. Neurologically unresponsive, she may grimace to painful stimulation, yet for the most part, she cannot follow commands and she is not moving any of her extremities upon demand. On today's evaluation, she was noted to have some increased work of breathing. Based on that, I increased her tidal volume to 450 and I put that on the VC plus mode. She seemed 3 much more comfortable an assist-control mode with a tidal volume of 450 and FiO2 of 40% with a PEEP of 5 with an inspiratory time of 0.9. She is receiving enteral feeding via effective and the patient is currently on vital high protein at the rate of 20 mL an hour. She is also on a bicarb drip with a serum bicarb of 27 and she is receiving a total of 250 mg of sodium bicarbonate D5 water at the rate of 50 mL an hour. 08/09/2020 I'm seeing the patient for a follow-up the is postop day #13 following cardiac surgery and active issue for now remains diminished level of consciousness and unresponsiveness. Note that the patient developed a CVA with left-sided weakness based on the CAT scan that was obtained postop. Nevertheless, the patient has not regained consciousness since. For the past 48 hours, she is been off sedation. On today's evaluation I see has grimacing to deep painful stimulation. She would open up her eyes spontaneously. She is still not following any commands. Pupils are equal and reactive to light. No motor function still. Brainstem reflexes are still abnormal liver function tests/shock liver. 2. Will placed on hold. Amylase and lipase were within normal limits. Ammonia level came back at less than 9. Liver function tests are down trending and the patient was taken off the Lipitor and amiodarone. She was also kept nothing by mouth for the past 24 hours. Her chest x-ray from today shows no significant interval change. Tracheostomy tube is in a good location and the patient has a Bivona tracheostomy tube in place and the chest x-ray from today is showing some bilateral pulmonary infiltrates most on the lung bases and possibly small pleural effusions bilaterally. The white cell count is down to 21. The pro-calcitonin level is still pending. The sputum culture was positive for Klebsiella and a repeat culture was obtained and the patient was kept on IV Rocephin. No significant orotracheal secretions. Earlier this morning the patient was on a VC plus mode with a tidal volume of 450 and the rate of 16 with a PEEP of 500 FiO2 of 40%. I switched this patient a spontaneous mode of breathing and currently she is on a pressure support of 5 and a PEEP of 5 and FiO2 of 40% and she is able to generate a tidal volume of 330 with a rate of 21 and a minute ventilation of 7.3. No signs of any respiratory distress. Hemodynamically she is stable on no pressors. She is in a normal sinus/She is on long-term anticoagulation with Eliquis. She is slightly edematous pressure and upper extremity and her net fluid balance over the past 24 hours has been 1 liter is still on half-normal saline today to 50 mL an hour. 08/10/2020, the patient seems to be more awake, obvious withdrawal to painful stimulation on the right, no movement on the left as the patient has a left- sided hemiplegia along with some left facial droop. Her gait is still to the right. I was able to elicit some response from her where she did squeeze my fingers upon demand using her right upper extremity. However the response was not consistent. She is resting comfortably in bed. She is hemodynamically stable. On and off she is going still into atrial fibrillation and this morning she is back in 2 A. fib. She remains on mechanical ventilator. Tracheostomy tube was pushed in further yesterday and on today's chest x-ray there is adequate positioning of the tracheostomy tube. There is diffuse bilateral pulmonary infiltrates as discussed earlier, unchanged. No pneumothorax. The patient is on assist control mode rate of 14 with a tidal volume of 450 and FiO2 of 40% with a PEEP of 5. Peak airway pressure is around 15. PH is at 7.43 with a pCO2 of 39 and pO2 of 86. A repeat CAT scan of the brain showed no acute abnormalities. Was sick is at 17.4 with a hemoglobin of 7.9. The rest of the renal function tests and electrodes are all within normal limits. The blood cul ture was was positive for coagulase-negative staph and the patient was given a dose of vancomycin. She remains on IV Rocephin. She remains on Keppra. Repeat the sputum is still showing no microbial growth. The patient is back on enteral feeding for nutritional support. She is currently running at the rate of 54 mL an hour which is at goal. Meanwhile, her liver function test was also showing recovery the patient's AST is down to 1374 and ALP is down to 1971. Ammonia level is not elevated. Blood sugar is controlled for now. 6 2020, the patient's neurologic status is unchanged. She is now following commands she opens up her eyes pH she'll occasionally moves her right upper extremity and less of movement is also seen in the right leg. No movement on the right. She blinks and she opens her eyes and she doesn't follow any commands. No seizure activity. No response to any verbal stimulation. She remained on assist control mode at the rate of 60 with a tidal volume of 450 and FiO2 of 40% with a PEEP of 5. This is a VC plus mode with an inspiratory time of 0.8 seconds. Chest x-ray is showing stable findings. Tracheostomy is in a good location. Sputum is showing gram-negative bacillus. Prior sputum culture has shown Klebsiella and the patient is still covered with IV cefepime The blood gases from today showed a pH of 7.44 with a pCO2 of 41 and pO2 of 82. Hemodynamically, she is afebrile. She is stable. She is on no pressors. Her fluid balance is in the order of +1.5 L over the past 24 hours and she's been consistently positive over the past few days. No signs of any significant fluid overload. She has some increased edema in the upper extremities bilaterally. She has a enteral feeding with vital high protein running at the rate of 54 mL an hour which is at goal and the PEG tube site is clean and the patient is producing adequate bowel movement activity. She has an umbilical hernia which is reducible and the surgical wound site is dry clean and intact. Neurology had discussed the case with the family and we are going to have another family meeting hopefully within the next few days. Hemoglobin stable at 7.4. No evidence of any GI bleeding. Her liver function tests were down trending and we are still awaiting a follow-up level. Pro-calcitonin level was 0.88. 08/12/2020, neurologically the patient is still unchanged and close observation over the past 24 hours and overnight showed no neurologic recovery as the patient continues to have periods of spontaneous awakening where she is opening her eyes and tries to move her right side of the body specially the right upper extremity. She never regained consciousness to the point where she is able to follow commands or respond back to us. Her pupils are equal and reactive. No seizure activity has been noted. She remains on a mechanical ventilator on a VC plus mode at the rate of seen with an FiO2 of 40% and PEEP of 5 and a tidal volume of 450. Chest x-ray still showing bilateral pulmonary infiltrates unchanged compared to yesterday and the sputum is positive for klebsiella and the patient is on a combination of cefepime and Diflucan. No fever. Blood gases from today shows a pH of 7.45 with a pCO2 of 40 and pO2 of 89. The net fluid balance was +1.2 L over the past 24 hours. The patient was given a dose of Lasix yesterday with subsequent good urine output. She is on normal saline at rate of 50 mL an hour and she is also receiving enteral feeding with vital high protein at the rate of 54 mL an hour which is still at goal and PEG tube site is dry clean and intact. She is stooling. No abdominal distention. Surgical wound site is dry clean and intact. She remains in atrial fibrillation and her rate is controlled with metoprolol 100 mg by mouth twice a day and the patient is on long-term anticoagulation with Eliquis 5 mg by mouth twice a day. No bleeding complications. No other significant events over the past 24 hours. Updated the son on her condition yesterday. Objective - Vital Signs Vital signs: Vital Signs Temp 98.3 F 08/12/20 04:00 Pulse 92 08/12/20 06:00 Resp 18 08/12/20 06:00 BP 113/80 03/07/21 06:00 Pulse Ox 98 08/12/20 06:00 Intake & Output 08/11/20 08/11/20 08/12/20 06:59 18:59 06:59 Intake Total 1464 1509 1568 Output Total 445 1700 675 Balance 1019 -191 893 Weight 94.6 kg 95.1 kg Intake: IV 750 705 800 Cefepime 2 gm In Sodium 100 100 Chloride 0.9% 100 ml @ 25 mls/hr IVPB Q12HR [facility] Rx #:[id number] Sodium Chloride 0.45% 1, 550 705 600 000 ml @ 50 mls/hr IV . Q20H [facility] Rx#:[id number] levETIRAcetam IV 500 mg 100 100 In Sodium Chloride 0.9% 100 ml @ 400 mls/hr IVPB Q12HR@0000,1200 [facility] Rx#: [id number] Tube Feeding 594 594 648 Other 120 210 120 Output: Urine 445 1700 675 Other: Voiding Method Indwelling Catheter Indwelling Catheter Indwelling Catheter ABP, PAP, CO, CI - Last Documented Arterial Blood Pressure 113/55 Pulmonary Artery Pressure 40/20 Cardiac Output 4.3 Cardiac Index 2.2 - Exam Intubated, sedated 75-year-old female patient. Currently she has a tracheostomy tube in place which is a #7 [place] tracheostomy tube. He is off sedation and she is calm and comfortable not following any commands. When awake, preferentially moves her right upper extremity. Head exam was generally normal. There was no scleral icterus or corneal arcus. Mucous membranes were moist. Neck supple. Full range of motion. No adenopathy thyromegaly or neck vein distention. She has a tracheostomy tube in place using a younger sibling [place] Cardiovascular examination reveals an irregular rhythm and rate. Irregular S1- S2 consistent with atrial fibrillation with rapid ventricular response. Lungs reveal bilateral rhonchi. No wheezes or crackles. Breath sounds equal bilaterally., Sternal stable clean and intact and is well-healed Abdominal exam revealed normal bowel sounds. The abdomen was soft, non-tender, and without masses, organomegaly, or appreciable enlargement of the abdominal aorta. The patient has a PEG tube which is in place and exit site is dry clean and intact Extremities are intact. No cyanosis clubbing or edema. Examination of the skin revealed no evidence of significant rashes, suspicious appearing nevi or other concerning lesions. Neurologic examination she may grimace to painful stimulation. There may be some facial asymmetry with some left-sided weakness. Pupils are equal and reactive to light. I was unable to elicit any motor response on today's evaluation. Nevertheless, the patient had left-sided weakness. No clonus. Reflexes are diminished. Extremities symmetrical in all 4 extremities. Babinski could not be elicited. Does have a weak cough and a gag. The patient has a weak cough. The patient has a weak gag. She does have positive corneals. Pupils are round 3-4 mm in size and there reactive to light. She may have a preferential gaze looking into the upper visual ugarte. Neurologically the patient is essentially unchanged. - Labs CBC & Chem 7: 08/12/20 04:41 08/12/20 04:41 Labs: Abnormal Lab Results - Last 24 Hours (Table) 08/11/20 08/11/20 08/11/20 Range/Units 04:45 08:04 11:26 WBC (3.8-10.6) k/uL RBC (3.80-5.40) m/uL Hgb (11.4-16.0) gm/dL Hct (34.0-46.0) % RDW (11.5-15.5) % Plt Count (150-450) k/uL Neutrophils # (1.3-7.7) k/uL Monocytes # (0-1.0) k/uL ABG HCO3 (21-25) mmol/L ABG Total CO2 (19-24) mmol/L ABG O2 Saturation (94-97) % BUN 37 H (7-17) mg/dL Creatinine 0.49 L (0.52-1.04) mg/dL Glucose 142 H (74-99) mg/dL POC Glucose (mg/dL) 162 H (75-99) mg/dL Calcium 8.1 L (8.4-10.2) mg/dL AST 720 H 622 H (14-36) U/L ALT 1456 H 1412 H (4-34) U/L Total Protein 5.4 L (6.3-8.2) g/dL Albumin 2.9 L (3.5-5.0) g/dL 08/11/20 08/11/2021 Range/Units 15:19 17:30 23:41 WBC (3.8-10.6) k/uL RBC (3.80-5.40) m/uL Hgb (11.4-16.0) gm/dL Hct (34.0-46.0) % RDW (11.5-15.5) % Plt Count (150-450) k/uL Neutrophils # (1.3-7.7) k/uL Monocytes # (0-1.0) k/uL ABG HCO3 (21-25) mmol/L ABG Total CO2 (19-24) mmol/L ABG O2 Saturation (94-97) % BUN 38 H (7-17) mg/dL Creatinine (0.52-1.04) mg/dL Glucose 134 H (74-99) mg/dL POC Glucose (mg/dL) 155 H 134 H (75-99) mg/dL Calcium 7.9 L (8.4-10.2) mg/dL AST 456 H (14-36) U/L ALT 1159 H (4-34) U/L Total Protein 5.3 L (6.3-8.2) g/dL Albumin 2.8 L (3.5-5.0) g/dL 08/12/20 08/12/20 08/12/20 Range/Units 04:41 04:41 05:32 WBC 17.5 H (3.8-10.6) k/uL RBC 2.68 L (3.80-5.40) m/uL Hgb 8.0 L (11.4-16.0) gm/dL Hct 25.9 L (34.0-46.0) % RDW 17.3 H (11.5-15.5) % Plt Count 550 H (150-450) k/uL Neutrophils # 13.2 H (1.3-7.7) k/uL Monocytes # 1.3 H (0-1.0) k/uL ABG HCO3 28 H (21-25) mmol/L ABG Total CO2 29 H (19-24) mmol/L ABG O2 Saturation 98.3 H (94-97) % BUN 39 H (7-17) mg/dL Creatinine 0.50 L (0.52-1.04) mg/dL Glucose 141 H (74-99) mg/dL POC Glucose (mg/dL) (75-99) mg/dL Calcium (8.4-10.2) mg/dL AST 287 H (14-36) U/L ALT 1022 H (4-34) U/L Total Protein 5.9 L (6.3-8.2) g/dL Albumin 3.1 L (3.5-5.0) g/dL 08/12/20 Range/Units 05:55 WBC (3.8-10.6) k/uL RBC (3.80-5.40) m/uL Hgb (11.4-16.0) gm/dL Hct (34.0-46.0) % RDW (11.5-15.5) % Plt Count (150-450) k/uL Neutrophils # (1.3-7.7) k/uL Monocytes # (0-1.0) k/uL ABG HCO3 (21-25) mmol/L ABG Total CO2 (19-24) mmol/L ABG O2 Saturation (94-97) % BUN (7-17) mg/dL Creatinine (0.52-1.04) mg/dL Glucose (74-99) mg/dL POC Glucose (mg/dL) 148 H (75-99) mg/dL Calcium (8.4-10.2) mg/dL AST (14-36) U/L ALT (4-34) U/L Total Protein (6.3-8.2) g/dL Albumin (3.5-5.0) g/dL Microbiology - Last 24 Hours (Table) 08/09/20 11:50 Blood Culture - Preliminary Blood No Growth after 48 hours 08/09/20 11:29 Blood Culture - Preliminary Blood No Growth after 48 hours 08/08/20 20:14 Gram Stain - Final Sputum Sputum Culture - Final Klebsiella oxytoca Assessment and Plan Plan: 1 Status post three-vessel bypass grafting. The patient is postop day #16. The patient remains intubated on mechanical ventilator. This was a post operative course was quite complicated and the patient a neurologic event with left-sided weakness and right sided/study bilateral acute/subacute CVA. The patient had a tracheostomy tube inserted yesterday the patient is postop day #6 post tracheostomy tube insertion and a PEG tube insertion. The patient remains unresponsive . She remains off sedation. She remains unresponsive and no sig nificant neurological recovery post CVA. 2 acute hypoxemic respiratory failure and remains on the ventilator because of her recent ischemic CVA. Patient had prolonged respiratory failure due to po stop CVA and the patient has a tracheostomy placed yesterday for ongoing respiratory support. Chest x-ray still showing bilateral pulmonary infiltrates and small effusion on the left. Sputum was positive for Klebsiella and the patient is still covered with IV cefepime 4 Leukocytosis of unclear etiology, white cell count is at 17 5 Remote history of non-small cell lung cancer, with previous lobectomy. 6 Prior history of tobacco use. 7 Mild COPD based on PFTs. 8 Family history of premature coronary artery disease. 9 History of hypertension. 10 Peripheral vascular occlusive disease. 11 Degenerative joint disease. 12 Hyperlipidemia. 13 Chronic insomnia. 14 History of postoperative anemia. Hb is 8 15 metabolic acidosis, recovered 16 chronicatrial fibrillation with rapid ventricular response , metoprolol at a dose of 100 mg by mouth twice a day in addition to Eliquis for anticoagulation 17 shock liver with abnormal LFTs, ultrasound the liver is pending for now LFTs are down trending monitor and ultrasound of the liver showed no acute abnormalities. there is a further drop in the liver function tests as we monitor the LFTs. This is consistent with shock liver. Plan: Continue ventilator support, no changes him a the patient was able to tolerate a pressure support mode of ventilation on earlier evaluation. Based on her significant neurologic impairment, we have opted not to do any further weaning. We are able to do daily pressure support thousand this patient same will be done today. Keep the patient off sedation, neurologically unchanged her closely IV fluids to KVO and give another lasix 40 mg IV push to maintain a adequate fluid balance IV cefepime sputum Gram stain and culture consistent with Klebsiella Enteral feeding with vital high protein at the rate of 54 mL an hour which is at goal and the patient is tolerating her treatment Hold Lipitor and amiodarone , LFTs are down trending and ammonia level was nonelevated Continue metoprolol 100 mg by mouth twice daily in combination with Eliquis Monitor mental status Monitor neurologic exam neurologically the patient is impaired neurologic outcome is poor baseline above-mentioned examination and We will continue to follow and make further recommendations based on her clinical status Critical care evaluation, done more than 30 minutes. Time with Patient: Greater than 30
[2020-08-12] MEDS ORDERED: POTASSIUM BICARBONATE/CIT AC 20 MEQ TABLET.EFF NG-TUBE SCH (07:00)
--- NOTE | 2020-08-12 07:33 | XR ---
EXAMINATION TYPE: XR chest 1V portable DATE OF EXAM: 08/12/2020 COMPARISON: Chest x-ray 08/11/2020 HISTORY: Postop coronary artery bypass graft TECHNIQUE: Single frontal view of the chest is obtained. FINDINGS: Tracheostomy tube, thoracic cord stimulator, pleural-parenchymal changes, overlying leads, left atrial appendage clip placement are all again noted and not significantly changed. Cardiac medi astinal silhouette is stable. No evident pneumothorax. Difficult to exclude effusions. Left-sided PIC C line shows the distal tip over the superior vena cava. IMPRESSION: Correlate for congestive heart failure, pneumonia, ARDS
[2020-08-12] MEDS: IPRATROPIUM-ALBUTEROL 3 ML NEB INHALATION PRN ×3 (08:09→15:46)
[2020-08-12] MEDS: CEFEPIME 2 GM in SODIUM CHLORIDE 0.9% 100 ML IVPB SCH ×2 (08:18→20:05)
[2020-08-12] MEDS: APIXABAN 5 MG TAB PEG/G-TUBE SCH ×2 (08:18→20:05)
[2020-08-12] MEDS: ASPIRIN 81 MG PO SCH (08:18)
[2020-08-12] MEDS: METOPROLOL TARTRATE 50 MG TAB PO SCH ×2 (08:19→20:05)
[2020-08-12] MEDS: FLUCONAZOLE 100 MG TAB PO SCH (08:19)
[2020-08-12] MEDS: CHLORHEXIDINE GLUCONATE 15 ML CUP MUCOUS MEM SCH ×2 (08:19→20:05)
[2020-08-12] MEDS: PANTOPRAZOLE 40 MG/10 ML VIAL IVP SCH (08:19)
[2020-08-12] MEDS: SERTRALINE 100 MG TAB PO SCH (08:19)
--- NOTE | 2020-08-12 09:33 | P.PN ---
Subjective Progress Note Date: 08/12/20 Principal diagnosis: Triple-vessel coronary artery disease, unstable angina. Past medical history significant for coronary artery disease with previous myocardial infarction and stent placement, peripheral arterial disease with lower extremity stenting, lung cancer status post right lower lobectomy in 2011, hypertension, hyperlipidemia, COPD with previous tobacco dependence, anxiety/depression, family history of premature coronary artery disease with 2 of her sons having had coronary artery bypass grafting surgery, significant plaque formation more than 75% stenosis at the origins of both internal and external carotid arteries bilaterally on CTA. POD #16 coronary artery bypass grafting 3 vessels, left internal mammary artery to the left anterior descending artery, a reverse greater saphenous vein graft to the obtuse marginal artery, a reverse greater saphenous vein graft to the posterior descending artery, endoscopic harvesting of the right greater saphenous vein, ligation of the left atrial appendage using a 35 mm AtriClip, epi-aortic ultrasound and intraoperative transesophageal echocardiogram. POD #5 tracheostomy tube placement #[address] Alan. POD #5 EGD with her cutaneous endoscopic gastrostomy tube placement by Dr. Chavarria. Postoperative acute blood loss anemia, expected given hemodilution and cardiopulmonary bypass pump. Postoperative right acute/subacute cerebellar infarct on brain CT, unexpected, although possible complication of any open heart surgery, especially given patient's known history of significant arterial disease. Prolonged mechanical ventilation, unexpected, secondary to acute stroke. Paroxysmal atrial fibrillation, known common occurrence after open heart surgery. The patient was seen in follow-up today 08/12/2020 at her bedside in the intensive care unit. Her trach remains midline and intact with mechanical ventilator support in place, current mechanical ventilator settings are assist control 16, VC +450/0.80 FiO2 40% and a PEEP of 5. Oxygen saturations on current mechanical ventilator settings are 100%. ABG results this morning show a pH of 7.45, pCO2 40, pO2 89, HCO3 28, oxygen saturation 98% and base excess 4.0. Her T-max temperature in the last 24 hours is 100.9F and she remains on cefepime for antibiotic coverage, managed by infectious disease. She is also on Diflucan for Nick in her sputum culture on 08/05/2020. The sputum culture from 08/08/2020 is still showing Klebsiella oxytoca, and her blood cultures from 08/09/2020 continued to show no growth after 48 hours. Her neuro status is unchanged from yesterday. She does open up her eyes at times, does not track or follow any verbal stimuli. She does withdraw from painful stimuli to her right upper extremity and her bilateral lower extremities. She does grimace with painful stimuli to her left hand. Bedside telemetry showing atrial fibrillation heart rate 95 BPM. Eliquis 5 mg per PEG tube twice a day remains in place for anticoagulation. Currently she is on metoprolol tartrate 100 mg per PEG tube twice a day. Da Silva catheter for accurate I&O with 425 mL output in the last 8 hours. She does have a positive fluid balance in the last 24 hours of 700 mL. PEG tube remains in place with vital high-protein tube feeding infusing at goal rate of 54 mL per hour with automatic water flushes 30 mL every 4 hours. Objective - Vital Signs Vital signs: Vital Signs Temp 98.3 F 08/12/20 04:00 Pulse 114 H 08/12/20 08:33 Resp 18 08/12/20 07:00 BP 98/51 08/12/20 07:00 Pulse Ox 98 08/12/20 07:00 Intake & Output 08/11/20 08/12/20 08/12/20 18:59 06:59 18:59 Intake Total 1509 1568 462 Output Total 1700 675 775 Balance -191 893 -313 Weight 95.1 kg Intake: IV 705 800 170 Cefepime 2 gm In Sodium 100 100 Chloride 0.9% 100 ml @ 25 mls/hr IVPB Q12HR [facility] Rx #:[id number] Sodium Chloride 0.45% 1, 705 600 70 000 ml @ 10 mls/hr IV . Q24H [facility] Rx#:[id number] levETIRAcetam IV 500 mg 100 In Sodium Chloride 0.9% 100 ml @ 400 mls/hr IVPB Q12HR@0000,1200 [facility] Rx#: [id number] Oral 100 Tube Feeding 594 648 162 Other 210 120 30 Output: Urine 1700 675 775 Other: Voiding Method Indwelling Catheter Indwelling Catheter ABP, PAP, CO, CI - Last Documented Arterial Blood Pressure 113/55 Pulmonary Artery Pressure 40/20 Cardiac Output 4.3 Cardiac Index 2.2 - Exam The patient remains with mechanical ventilator support, tracheostomy tube midli ne and in place. Her sedation continues to be on hold. She has her eyes open and is awake, moving her right upper extremity, although not following any verbal commands. Left sided extremities flaccid. Withdrawals from painful stimuli to her right upper extremity and bilateral lower extremities although grimaces only with painful stimuli to her left upper extremity. - Constitutional General appearance: Present: no acute distress, obese - EENT EENT Comment(s): Scleral edema Eyes: Present: PERRLA, normal appearance. Absent: scleral icterus - Neck Details: Neck is supple, no JVD, tracheostomy tube midline and intact. #7 Bivona tracheostomy tube. Neck: Absent: lymphadenopathy - Respiratory Details: Lung sounds with few scattered rhonchi throughout. No wheezes or crackles. Res pirations are symmetrical and nonlabored with mechanical ventilator support. #7 Bivona tracheostomy tube midline and intact. Oxygen saturation 100% on current mechanical ventilator settings. Current mechanical ventilator settings are assist control 16, VC +450 TV/0.80 FiO2 40% and a PEEP of 5. ABG results this morning show a pH of 7.45, pCO2 40, pO2 89, HCO3 28, oxygen saturation 98.3 and base excess 4.0. - Cardiovascular Details: Irregular rhythm and controlled rate. S1 and S2 present, negative for S3, gallop or murmur. Sternum is stable. Heart hugger is in place. Bedside telemetry showing atrial fibrillation heart rate 95 BPM. Generalized +1 edema. Knee-high DEBI hose and sequential compression devices in place to her bilateral lower extremities. - Gastrointestinal Gastrointestinal Comment(s): Abdomen soft, nontender and nondistended. Active bowel sounds present in all 4 abdominal quadrants. No guarding or rigidity. No organomegaly appreciated. Left upper quadrant abdomen with a tube in place with continuous tube feedings vital high-protein infusing at goal rate of 54 mL per hour with automatic water flushes of 30 mL Q4 hours. - Genitourinary Genitourinary Comment(s): Da Silva catheter for accurate I&O. Draining clear yellow urine with 425 mL output in the last 8 hours. - Integumentary Integumentary Comment(s): Skin is warm and dry. No clubbing or cyanosis is present. Midline sternal incision is clean, dry and approximated. No drainage or redness is present. Right lower extremity EVH site is clean, dry and approximated. No drainage or redness is present. - Neurologic Neurologic Comment(s): Opens her eyes and is awake, moving her right upper extremity, although not following any verbal commands. Left sided extremities flaccid. Withdrawals from painful stimuli to her right upper extremity and bilateral lower extremities although grimaces only with painful stimuli to her left upper extremity. - Musculoskeletal Musculoskeletal Comment(s): Left upper extremity flaccid Musculoskeletal: Present: generalized weakness - Psychiatric Psychiatric Comment(s): Opens her eyes at times, unable to accurately assess at this time. - Allied health notes Allied health notes reviewed: nursing - Labs CBC & Chem 7: 08/12/20 04:41 08/12/20 04:41 Labs: Abnormal Lab Results - Last 24 Hours (Table) 08/11/20 08/11/20 08/11/20 Range/Units 11:26 15:19 17:30 WBC (3.8-10.6) k/uL RBC (3.80-5.40) m/uL Hgb (11.4-16.0) gm/dL Hct (34.0-46.0) % RDW (11.5-15.5) % Plt Count (150-450) k/uL Neutrophils # (1.3-7.7) k/uL Monocytes # (0-1.0) k/uL ABG HCO3 (21-25) mmol/L ABG Total CO2 (19-24) mmol/L ABG O2 Saturation (94-97) % BUN 38 H (7-17) mg/dL Creatinine (0.52-1.04) mg/dL Glucose 134 H (74-99) mg/dL POC Glucose (mg/dL) 162 H 155 H (75-99) mg/dL Calcium 7.9 L (8.4-10.2) mg/dL AST 456 H (14-36) U/L ALT 1159 H (4-34) U/L Total Protein 5.3 L (6.3-8.2) g/dL Albumin 2.8 L (3.5-5.0) g/dL 08/11/20 08/12/20 08/12/20 Range/Units 23:41 04:41 04:41 WBC 17.5 H (3.8-10.6) k/uL RBC 2.68 L (3.80-5.40) m/uL Hgb 8.0 L (11.4-16.0) gm/dL Hct 25.9 L (34.0-46.0) % RDW 17.3 H (11.5-15.5) % Plt Count 550 H (150-450) k/uL Neutrophils # 13.2 H (1.3-7.7) k/uL Monocytes # 1.3 H (0-1.0) k/uL ABG HCO3 (21-25) mmol/L ABG Total CO2 (19-24) mmol/L ABG O2 Saturation (94-97) % BUN 39 H (7-17) mg/dL Creatinine 0.50 L (0.52-1.04) mg/dL Glucose 141 H (74-99) mg/dL POC Glucose (mg/dL) 134 H (75-99) mg/dL Calcium (8.4-10.2) mg/dL AST 287 H (14-36) U/L ALT 1022 H (4-34) U/L Total Protein 5.9 L (6.3-8.2) g/dL Albumin 3.1 L (3.5-5.0) g/dL 08/12/20 08/12/20 Range/Units 05:32 05:55 WBC (3.8-10.6) k/uL RBC (3.80-5.40) m/uL Hgb (11.4-16.0) gm/dL Hct (34.0-46.0) % RDW (11.5-15.5) % Plt Count (150-450) k/uL Neutrophils # (1.3-7.7) k/uL Monocytes # (0-1.0) k/uL ABG HCO3 28 H (21-25) mmol/L ABG Total CO2 29 H (19-24) mmol/L ABG O2 Saturation 98.3 H (94-97) % BUN (7-17) mg/dL Creatinine (0.52-1.04) mg/dL Glucose (74-99) mg/dL POC Glucose (mg/dL) 148 H (75-99) mg/dL Calcium (8.4-10.2) mg/dL AST (14-36) U/L ALT (4-34) U/L Total Protein (6.3-8.2) g/dL Albumin (3.5-5.0) g/dL Microbiology - Last 24 Hours (Table) 08/09/20 11:50 Blood Culture - Preliminary Blood No Growth after 48 hours 08/09/20 11:29 Blood Culture - Preliminary Blood No Growth after 48 hours 08/08/20 20:14 Gram Stain - Final Sputum Sputum Culture - Final Klebsiella oxytoca - Imaging and Cardiology Chest x-ray: report reviewed, image reviewed Assessment and Plan Assessment: 1. Triple-vessel coronary artery disease, unstable angina, status post three- vessel CABG 2. History of coronary artery disease with previous myocardial infarction and stent placement 3. Peripheral arterial disease with lower extremity stenting 4. History of lung cancer status post right lower lobectomy 5. Hypertension, currently hypotensive requiring IV pressors 6. Hyperlipidemia, treated, cholesterol 152, LDL 85 7. COPD with previous tobacco dependence, preoperative FEV1 82% of predicted 8. Anxiety/depression 9. Family history of premature coronary artery disease 10. Postoperative acute blood loss anemia, expected, status post 1 unit packed red blood cell transfusion 11. Postoperative acute/subacute right cerebellar infarct, unexpected, with evidence of previous right parietal stroke 12. Bilateral internal carotid artery disease greater than 75% present on CTA 13. Prolonged mechanical ventilation, unexpected acute hypoxemic respiratory failure because of her recent CVA, status post tracheostomy placement 14. Paroxysmal atrial fibrillation, status post ligation of the left atrial appendage, currently sinus rhythm 15. Leukocytosis, final sputum culture results shows Klebsiella oxytoca and Nick albicans 16. Malnutrition, status post percutaneous endoscopic gastrostomy tube placement 17. Elevated transaminase enzymes, likely secondary to amiodarone and Lipitor which are currently on hold, liver enzymes continue to trend down Plan: 1. Continue aspirin, and beta tran. Continue Metoprolol tartrate 100 per G- tube twice. 2. No diuretics today. 3. Mechanical ventilator management per pulmonology/critical care management. Bronchodilators per pulmonology/critical care management. 4. The patient son Christian has been updated on her care this morning per phone. 5. Continue to monitor daily labs and chest x-rays. Electrolyte replacement per protocol. 6. GI and DVT prophylaxis. 7. Continue to hold amiodarone and statin due to her elevated liver enzymes. Liver enzymes continue to trend down. We will restart her statin once her liver enzymes have normalized. 8. Continue Da Silva catheter and record accurate I's and O's. The catheter was exchanged on 08/08/2020. 9. Pain control with current when necessary orders. 10. Strict accurate intake and output. Daily weights 11. Final result of sputum culture showing Klebsiella oxytoca from 08/08/2020, currently on cefepime for antibiotic treatment. Also on Diflucan for positive nick in her sputum culture on 08/05/2020. T-max temperature in the last 24 hours 100.9F. WBC count today is 17.5 which is trending down. 12. Antibiotic management per infectious disease recommendations. 13. Continue Eliquis 5 mg per PEG tube twice a day for anticoagulation. 14. cooler room worker working with family for family meeting with Dr. Luong from neurology. 15. More recommendations to follow based on patient's clinical course. Time with Patient: Greater than 30
--- NOTE | 2020-08-12 09:38 | P.PN ---
Subjective HPI: This is a 75-year-old female past medical history significant for coronary artery disease with previous myocardial infarction and stent placement, peripheral artery disease with lower extremity stenting, lung cancer s/p right lower lobectomy in 2011, hypertension, hyperlipidemia, COPD with previous tobacco dependence quit in 2011. Presented with NSTEMI. She presented to the emergency department at [facility] with complaints of midsternal chest discomfort radiating to her back and down bilateral arms, transferred to [facility] On 07/22- Patient underwent cardiac catheterization and found to have severe triple-vessel coronary artery disease with significant disease in the proximal LAD, mid LAD, obtuse marginal branch and the right coronary artery in the long segment. Echo revealed normal left ventricular systolic function EF 50-55% with mild aortic stenosis. She underwent coronary artery bypass grafting x 3 vessels, ligation of the left atrial appendage on 07/27. Post-operatively, 07/28, while patient being weaned off sedation, patient was found to have left-sided weakness, deviation of the head to the right side, was not following commands. CT brain revealed acute/subacute ischemic infarction the right cerebellum. Patient is seen and examined this morning around 0815. Patient underwent tracheostomy and PEG tube placement 08/06/20. Overnight, she went into atrial fibrillation with RVR 10 PM. Patient was started on amiodarone drip, started with a bolus and following that she was maintained on 0.5 mg/min. She is on mechanical ventilation and sedated on propofol drip. She is not following any verbal commands. Vent setting AC tidal volume 400 FiO2 40% and PEEP of 5. Laboratory data reviewed, WBC 21.4, Hgb 8.6, Plt 739, Na 137, K 5.3, sCr 0.57, AST 80, ALT 124, Alk Phos 181. 08/08/2020: Patient seen and examined. Attempted to wean sedation and patient able to open eyes however no meaningful movements or interaction. Liver enzymes have been increasing with AST 2995 and ALT 2452, severely elevated from previous 80 and 120. Alk phos 157, total bilirubin 0.8. Amiodarone was discontinued. Heart rates predominantly 100s to 115 in A. fib. White blood cell count remains elevated at 24, hemoglobin 8.4. Increase metoprolol from 50-100 today. 08/09/2020 Patient seen and examined. Patient undergoing spontaneous breathing trial this morning. Remains unresponsive without any response to verbal or noxious stimuli. AST and ALT are somewhat improved at 1417 100 today. CRP noted to be very elevated at 82 and white blood cell count remains elevated at 21. Abdominal ultrasound was performed this morning however pending results. Amiodarone was discontinued yesterday and metoprolol was increased yesterday to 100 mg twice a day. Patient converted to normal sinus rhythm yesterday at around midnight. 08/10/20 Patient seen and examined. Patient has not been receiving any sedation and still remains lethargic and unresponsive. Patient occasionally spontaneously moving her right arm however not making any purposeful movements. She did go back into Afib with HR's 90-low 100's. AST and ALT still elevated at 1319 1900 respectively. White blood cell still elevated at 17.7. Remains on Eliquis 5mg bid, hgb stable. 08/11/20 Patient seen and examined. Patient remains lethargic and unresponsive. She has been off of any sedation. She converted to normal sinus rhythm. AST improved to 622 and ALT of 1412 today. 08/12/20 Patient seen and examined. Patient remains lethargic however able to follow simple commands such as closing eyes and opening eyes. Otherwise is not following commands in terms of moving any extremities. She went back in atrial fibrillation with moderately controlled rates with heart rates 90s to low 100s. She is receiving Lopressor 100 mg twice a day. AST improved to 287, ALT 1022, white blood cell 17.5, hemoglobin 8.0. PHYSICAL EXAMINATION HEENT: Mucous membranes moist CHEST EXAMINATION: Bilateral rhonchi, no wheezes or crackles. Breath sounds are equal bilaterally HEART EXAMINATION: Irregular rate and rhythm, S1, S2 heard. No murmurs, gallops or rub. Inscision clean dry intact ABDOMEN: Soft, Positive bowel sounds. EXTREMITIES: 2+ peripheral pulses, 2+ pitting edema, LUE PICC SKIN: No rashes NEUROLOGIC: Facial asymmetry, left sided weakness. Pupils are equal. Not following commands. ASSESSMENT NSTEMI, s/p three vessel CABG Respiratory failure, requiring tracheostomy and PEG tube placement Cerebrovascular accident post-operatively after CABG Paroxysmal atrial fibrillation after CABG, currently Afib History of coronary artery disease with previous myocardial infarction and stent placement Peripheral artery disease with lower extremity stenting History of Hypertension Hyperlipidemia History of lung cancer Acute liver injury, improving PLAN -Amiodarone was discontinued secondary to acute liver injury, GI recommendations appreciated, ultrasound unrevealing. -Continue oral anticoagulationn with Eliquis -Continue Aspirin -Statin was discontinued secondary to liver injury, restart when able -Continue to monitor patient's neurologic status, supportive care. Prognosis is guarded. -Continue Lopressor 100 mg twice a day for rate control. Objective - Vital Signs Vital signs: Vital Signs Temp 99.9 F H 08/12/20 08:00 Pulse 118 H 08/12/20 09:00 Resp 22 08/12/20 09:00 BP 142/69 08/12/20 09:00 Pulse Ox 95 08/12/20 09:00 Intake & Output 08/11/20 08/12/20 08/12/20 18:59 06:59 18:59 Intake Total 1509 1568 462 Output Total 1700 675 775 Balance -191 893 -313 Weight 95.1 kg Intake: IV 705 800 170 Cefepime 2 gm In Sodium 100 100 Chloride 0.9% 100 ml @ 25 mls/hr IVPB Q12HR [facility] Rx #:[id number] Sodium Chloride 0.45% 1, 705 600 70 000 ml @ 10 mls/hr IV . Q24H [facility] Rx#:[id number] levETIRAcetam IV 500 mg 100 In Sodium Chloride 0.9% 100 ml @ 400 mls/hr IVPB Q12HR@0000,1200 [facility] Rx#: [id number] Oral 100 Tube Feeding 594 648 162 Other 210 120 30 Output: Urine 1700 675 775 Other: Voiding Method Indwelling Catheter Indwelling Catheter ABP, PAP, CO, CI - Last Documented Arterial Blood Pressure 113/55 Pulmonary Artery Pressure 40/20 Cardiac Output 4.3 Cardiac Index 2.2 - Labs CBC & Chem 7: 08/12/20 04:41 08/12/20 04:41 Labs: Abnormal Lab Results - Last 24 Hours (Table) 08/11/20 08/11/20 08/11/20 Range/Units 11:26 15:19 17:30 WBC (3.8-10.6) k/uL RBC (3.80-5.40) m/uL Hgb (11.4-16.0) gm/dL Hct (34.0-46.0) % RDW (11.5-15.5) % Plt Count (150-450) k/uL Neutrophils # (1.3-7.7) k/uL Monocytes # (0-1.0) k/uL ABG HCO3 (21-25) mmol/L ABG Total CO2 (19-24) mmol/L ABG O2 Saturation (94-97) % BUN 38 H (7-17) mg/dL Creatinine (0.52-1.04) mg/dL Glucose 134 H (74-99) mg/dL POC Glucose (mg/dL) 162 H 155 H (75-99) mg/dL Calcium 7.9 L (8.4-10.2) mg/dL AST 456 H (14-36) U/L ALT 1159 H (4-34) U/L Total Protein 5.3 L (6.3-8.2) g/dL Albumin 2.8 L (3.5-5.0) g/dL 08/11/20 08/12/20 08/12/20 Range/Units 23:41 04:41 04:41 WBC 17.5 H (3.8-10.6) k/uL RBC 2.68 L (3.80-5.40) m/uL Hgb 8.0 L (11.4-16.0) gm/dL Hct 25.9 L (34.0-46.0) % RDW 17.3 H (11.5-15.5) % Plt Count 550 H (150-450) k/uL Neutrophils # 13.2 H (1.3-7.7) k/uL Monocytes # 1.3 H (0-1.0) k/uL ABG HCO3 (21-25) mmol/L ABG Total CO2 (19-24) mmol/L ABG O2 Saturation (94-97) % BUN 39 H (7-17) mg/dL Creatinine 0.50 L (0.52-1.04) mg/dL Glucose 141 H (74-99) mg/dL POC Glucose (mg/dL) 134 H (75-99) mg/dL Calcium (8.4-10.2) mg/dL AST 287 H (14-36) U/L ALT 1022 H (4-34) U/L Total Protein 5.9 L (6.3-8.2) g/dL Albumin 3.1 L (3.5-5.0) g/dL 08/12/20 08/12/20 Range/Units 05:32 05:55 WBC (3.8-10.6) k/uL RBC (3.80-5.40) m/uL Hgb (11.4-16.0) gm/dL Hct (34.0-46.0) % RDW (11.5-15.5) % Plt Count (150-450) k/uL Neutrophils # (1.3-7.7) k/uL Monocytes # (0-1.0) k/uL ABG HCO3 28 H (21-25) mmol/L ABG Total CO2 29 H (19-24) mmol/L ABG O2 Saturation 98.3 H (94-97) % BUN (7-17) mg/dL Creatinine (0.52-1.04) mg/dL Glucose (74-99) mg/dL POC Glucose (mg/dL) 148 H (75-99) mg/dL Calcium (8.4-10.2) mg/dL AST (14-36) U/L ALT (4-34) U/L Total Protein (6.3-8.2) g/dL Albumin (3.5-5.0) g/dL Microbiology - Last 24 Hours (Table) 08/08/20 11:05 Blood Culture Gram Stain - Final Blood Blood Culture - Final Coagulase Negative Staph 08/09/20 11:50 Blood Culture - Preliminary Blood No Growth after 48 hours 08/09/20 11:29 Blood Culture - Preliminary Blood No Growth after 48 hours 08/08/20 20:14 Gram Stain - Final Sputum Sputum Culture - Final Klebsiella oxytoca
--- NOTE | 2020-08-12 10:40 | P.PN ---
Subjective Progress Note Date: 08/11/20 Principal diagnosis: Elevated liver enzymes The patient is seen lying in bed with no acute events overnight reported by nursing staff. Objective - Vital Signs Vital signs: Vital Signs Temp 98.8 F 08/11/20 04:00 Pulse 66 08/11/20 09:00 Resp 20 08/11/20 09:00 BP 108/47 08/11/20 09:00 Pulse Ox 95 08/11/20 09:00 Intake & Output 08/10/20 08/11/20 08/11/20 18:59 06:59 18:59 Intake Total 1567 1464 462 Output Total 1310 445 400 Balance 257 1019 62 Weight 93.3 kg 94.6 kg Intake: IV 650 750 150 Cefepime 2 gm In Sodium 100 Chloride 0.9% 100 ml @ 25 mls/hr IVPB Q12HR [facility] Rx #:[id number] Sodium Chloride 0.45% 1, 650 550 150 000 ml @ 50 mls/hr IV . Q20H [facility] Rx#:[id number] levETIRAcetam IV 500 mg 100 In Sodium Chloride 0.9% 100 ml @ 400 mls/hr IVPB Q12HR@0000,1200 [facility] Rx#: [id number] Tube Feeding 702 594 162 Other 215 120 150 Output: Urine 1310 445 400 Other: Voiding Method Indwelling Catheter Indwelling Catheter Indwelling Catheter ABP, PAP, CO, CI - Last Documented Arterial Blood Pressure 113/55 Pulmonary Artery Pressure 40/20 Cardiac Output 4.3 Cardiac Index 2.2 - Exam On physical examination, patient appears comfortable in no apparent distress. HEAD: Normocephalic, atraumatic. EYES: No scleral icterus. No conjunctival injection, persistent gaze deviation. MOUTH: No lesions, tongue midline, dry. NECK: Trachea midline, no gross abnormalities, tracheostomy site clean and intact. CHEST: Coarse respiratory noises in all lung ugarte. ABDOMEN: Soft, obese, PEG tube site clean//intact. Bowel sounds are positive. No organomegaly. No guarding or rigidity. EXTREMITIES: Bilateral pedal edema. SKIN: No rashes, no jaundice. NEUROLOGIC: Alert and oriented x0. - Labs CBC & Chem 7: 08/12/20 04:41 08/12/20 09:36 Labs: Abnormal Lab Results - Last 24 Hours (Table) 08/10/20 08/10/2021 Range/Units 11:46 18:03 00:25 WBC (3.8-10.6) k/uL RBC (3.80-5.40) m/uL Hgb (11.4-16.0) gm/dL Hct (34.0-46.0) % MCHC (31.0-37.0) g/dL RDW (11.5-15.5) % Plt Count (150-450) k/uL Neutrophils # (1.3-7.7) k/uL ABG pO2 (83-108) mmHg ABG HCO3 (21-25) mmol/L ABG Total CO2 (19-24) mmol/L BUN (7-17) mg/dL Creatinine (0.52-1.04) mg/dL Glucose (74-99) mg/dL POC Glucose (mg/dL) 136 H 141 H 144 H (75-99) mg/dL Calcium (8.4-10.2) mg/dL AST (14-36) U/L ALT (4-34) U/L Total Protein (6.3-8.2) g/dL Albumin (3.5-5.0) g/dL 08/11/20 08/11/20 08/11/20 Range/Units 04:45 04:45 05:17 WBC 16.9 H (3.8-10.6) k/uL RBC 2.50 L (3.80-5.40) m/uL Hgb 7.4 L (11.4-16.0) gm/dL Hct 24.0 L (34.0-46.0) % MCHC 30.9 L (31.0-37.0) g/dL RDW 16.2 H (11.5-15.5) % Plt Count 552 H (150-450) k/uL Neutrophils # 13.5 H (1.3-7.7) k/uL ABG pO2 82 L (83-108) mmHg ABG HCO3 28 H (21-25) mmol/L ABG Total CO2 29 H (19-24) mmol/L BUN 37 H (7-17) mg/dL Creatinine 0.49 L (0.52-1.04) mg/dL Glucose 142 H (74-99) mg/dL POC Glucose (mg/dL) (75-99) mg/dL Calcium 8.1 L (8.4-10.2) mg/dL AST 720 H (14-36) U/L ALT 1456 H (4-34) U/L Total Protein 5.4 L (6.3-8.2) g/dL Albumin 2.9 L (3.5-5.0) g/dL 08/11/20 08/11/20 Range/Units 06:23 08:04 WBC (3.8-10.6) k/uL RBC (3.80-5.40) m/uL Hgb (11.4-16.0) gm/dL Hct (34.0-46.0) % MCHC (31.0-37.0) g/dL RDW (11.5-15.5) % Plt Count (150-450) k/uL Neutrophils # (1.3-7.7) k/uL ABG pO2 (83-108) mmHg ABG HCO3 (21-25) mmol/L ABG Total CO2 (19-24) mmol/L BUN (7-17) mg/dL Creatinine (0.52-1.04) mg/dL Glucose (74-99) mg/dL POC Glucose (mg/dL) 134 H (75-99) mg/dL Calcium (8.4-10.2) mg/dL AST 622 H (14-36) U/L ALT 1412 H (4-34) U/L Total Protein (6.3-8.2) g/dL Albumin (3.5-5.0) g/dL Microbiology - Last 24 Hours (Table) 08/08/20 20:14 Gram Stain - Final Sputum Sputum Culture - Final Klebsiella oxytoca 08/09/20 11:50 Blood Culture - Preliminary Blood No Growth after 24 hours 08/09/20 11:29 Blood Culture - Preliminary Blood No Growth after 24 hours 08/08/20 11:05 Blood Culture Gram Stain - Preliminary Blood Blood Culture - Preliminary Coagulase Negative Staph Assessment and Plan (1) Elevated LFTs Narrative/Plan: 75-year-old female with multiple medical comorbidities currently being managed in the ICU after recent CVA. The gastroenterology team was consulted for evaluation of elevation in the patient's liver enzymes predominantly in a hepatocellular pattern. Patient is on multiple medications likely the cause of her elevation in liver enzymes including amiodarone, statins and antibiotics. Currently amiodarone has been discontinued NSAID and is being held. There is no evidence of episodes of hypotension to suggest ischemic hepatitis and viral hepatitis testing has been negative with ultrasound of the abdomen unrevealing. Continue to monitor liver enzymes. Current Visit: Yes Status: Acute Code(s): R79.89 - OTHER SPECIFIED ABNORMAL FINDINGS OF BLOOD CHEMISTRY SNOMED Code(s): 192811280 Plan: 1. Supportive care 2. Daily CMP 3. Continue to hold statin and amiodarone 4. Avoid hepatotoxic agents 5. Hepatitis panel ordered and reviewed, negative 3 6. Abdominal ultrasound ordered and reviewed and overall unrevealing 7. Continue other medical management per primary team and consulting services Thank you for this consultation, we will continue to follow
[2020-08-12 11:36] LABS: Glucose,Whole Blood 148 mg/dL (75-99)
[2020-08-12 13:20] LABS: Glucose,Whole Blood 159 mg/dL (75-99)
[2020-08-12] MEDS: levETIRAcetam IV 500 MG in SODIUM CHLORIDE 0.9% 100 ML IVPB SCH (13:20)
--- NOTE | 2020-08-12 13:55 | P.PN ---
Subjective Progress Note Date: 08/12/20 Principal diagnosis: Elevated liver enzymes The patient is seen lying in bed with no acute events overnight reported by nursing staff. Liver enzymes continue to improve and mentation is improving as per nursing staff. Objective - Vital Signs Vital signs: Vital Signs Temp 99.9 F H 08/12/20 08:00 Pulse 118 H 08/12/20 09:00 Resp 22 08/12/20 09:00 BP 142/69 08/12/20 09:00 Pulse Ox 95 08/12/20 09:00 Intake & Output 08/11/20 08/12/20 08/12/20 18:59 06:59 18:59 Intake Total 1509 1568 462 Output Total 1700 675 775 Balance -191 893 -313 Weight 95.1 kg Intake: IV 705 800 170 Cefepime 2 gm In Sodium 100 100 Chloride 0.9% 100 ml @ 25 mls/hr IVPB Q12HR [facility] Rx #:[id number] Sodium Chloride 0.45% 1, 705 600 70 000 ml @ 10 mls/hr IV . Q24H [facility] Rx#:[id number] levETIRAcetam IV 500 mg 100 In Sodium Chloride 0.9% 100 ml @ 400 mls/hr IVPB Q12HR@0000,1200 [facility] Rx#: [id number] Oral 100 Tube Feeding 594 648 162 Other 210 120 30 Output: Urine 1700 675 775 Other: Voiding Method Indwelling Catheter Indwelling Catheter ABP, PAP, CO, CI - Last Documented Arterial Blood Pressure 113/55 Pulmonary Artery Pressure 40/20 Cardiac Output 4.3 Cardiac Index 2.2 - Exam On physical examination, patient appears comfortable in no apparent distress. HEAD: Normocephalic, atraumatic. EYES: No scleral icterus. No conjunctival injection, persistent gaze deviation. MOUTH: No lesions, tongue midline, dry. NECK: Trachea midline, no gross abnormalities, tracheostomy site clean and intact. CHEST: Coarse respiratory noises in all lung ugarte. ABDOMEN: Soft, obese, PEG tube site clean//intact. Bowel sounds are positive. No organomegaly. No guarding or rigidity. EXTREMITIES: Bilateral pedal edema. SKIN: No rashes, no jaundice. NEUROLOGIC: Alert and oriented x0. - Labs CBC & Chem 7: 08/12/20 04:41 08/12/20 09:36 Labs: Abnormal Lab Results - Last 24 Hours (Table) 08/11/20 08/11/20 08/11/20 Range/Units 11:26 15:19 17:30 WBC (3.8-10.6) k/uL RBC (3.80-5.40) m/uL Hgb (11.4-16.0) gm/dL Hct (34.0-46.0) % RDW (11.5-15.5) % Plt Count (150-450) k/uL Neutrophils # (1.3-7.7) k/uL Monocytes # (0-1.0) k/uL ABG HCO3 (21-25) mmol/L ABG Total CO2 (19-24) mmol/L ABG O2 Saturation (94-97) % BUN 38 H (7-17) mg/dL Creatinine (0.52-1.04) mg/dL Glucose 134 H (74-99) mg/dL POC Glucose (mg/dL) 162 H 155 H (75-99) mg/dL Calcium 7.9 L (8.4-10.2) mg/dL AST 456 H (14-36) U/L ALT 1159 H (4-34) U/L Total Protein 5.3 L (6.3-8.2) g/dL Albumin 2.8 L (3.5-5.0) g/dL 08/11/20 08/12/20 08/12/20 Range/Units 23:41 04:41 04:41 WBC 17.5 H (3.8-10.6) k/uL RBC 2.68 L (3.80-5.40) m/uL Hgb 8.0 L (11.4-16.0) gm/dL Hct 25.9 L (34.0-46.0) % RDW 17.3 H (11.5-15.5) % Plt Count 550 H (150-450) k/uL Neutrophils # 13.2 H (1.3-7.7) k/uL Monocytes # 1.3 H (0-1.0) k/uL ABG HCO3 (21-25) mmol/L ABG Total CO2 (19-24) mmol/L ABG O2 Saturation (94-97) % BUN 39 H (7-17) mg/dL Creatinine 0.50 L (0.52-1.04) mg/dL Glucose 141 H (74-99) mg/dL POC Glucose (mg/dL) 134 H (75-99) mg/dL Calcium (8.4-10.2) mg/dL AST 287 H (14-36) U/L ALT 1022 H (4-34) U/L Total Protein 5.9 L (6.3-8.2) g/dL Albumin 3.1 L (3.5-5.0) g/dL 08/12/20 08/12/20 Range/Units 05:32 05:55 WBC (3.8-10.6) k/uL RBC (3.80-5.40) m/uL Hgb (11.4-16.0) gm/dL Hct (34.0-46.0) % RDW (11.5-15.5) % Plt Count (150-450) k/uL Neutrophils # (1.3-7.7) k/uL Monocytes # (0-1.0) k/uL ABG HCO3 28 H (21-25) mmol/L ABG Total CO2 29 H (19-24) mmol/L ABG O2 Saturation 98.3 H (94-97) % BUN (7-17) mg/dL Creatinine (0.52-1.04) mg/dL Glucose (74-99) mg/dL POC Glucose (mg/dL) 148 H (75-99) mg/dL Calcium (8.4-10.2) mg/dL AST (14-36) U/L ALT (4-34) U/L Total Protein (6.3-8.2) g/dL Albumin (3.5-5.0) g/dL Microbiology - Last 24 Hours (Table) 08/08/20 11:05 Blood Culture Gram Stain - Final Blood Blood Culture - Final Coagulase Negative Staph 08/09/20 11:50 Blood Culture - Preliminary Blood No Growth after 48 hours 08/09/20 11:29 Blood Culture - Preliminary Blood No Growth after 48 hours 08/08/20 20:14 Gram Stain - Final Sputum Sputum Culture - Final Klebsiella oxytoca Assessment and Plan (1) Elevated LFTs Narrative/Plan: 75-year-old female with multiple medical comorbidities currently being managed in the ICU after recent CVA. The gastroenterology team was consulted for evaluation of elevation in the patient's liver enzymes predominantly in a hepatocellular pattern. Patient is on multiple medications likely the cause of her elevation in liver enzymes including amiodarone, statins and antibiotics. Currently amiodarone has been discontinued NSAID and is being held. There is no evidence of episodes of hypotension to suggest ischemic hepatitis and viral h epatitis testing has been negative with ultrasound of the abdomen unrevealing. Continue to monitor liver enzymes which are trending down. Current Visit: Yes Status: Acute Code(s): R79.89 - OTHER SPECIFIED ABNORMAL FINDINGS OF BLOOD CHEMISTRY SNOMED Code(s): 888395584 Plan: 1. Supportive care 2. Daily CMP 3. Continue to hold statin and can consider initiation in the future once liver enzymes have normalized with careful monitoring, no plans for reinitiation of amiodarone as per cardiology note 4. Avoid hepatotoxic agents 5. Hepatitis panel ordered and reviewed, negative 3 6. Abdominal ultrasound ordered and reviewed and overall unrevealing 7. Continue other medical management per primary team and consulting services Thank you for this consultation, the GI service will stand by, please call us back with any questions or concerns
--- NOTE | 2020-08-12 17:01 | P.PN ---
Progress Note - Text Progress Note Date: 08/12/20 PEG site is clean. Patient is tolerating tube feeds at goal.
[2020-08-12] MEDS: SODIUM CHLORIDE 0.45% 1,000 ML IV SCH (17:43)
[2020-08-12 17:51] LABS: Glucose,Whole Blood 143 mg/dL (75-99)
--- NOTE | 2020-08-12 19:25 | P.PN ---
Progress Note - Text Progress Note Date: 08/12/20 Chief Complaint: Chest pain History of presenting complaint: This is a pleasant 75-year-old patient of Dr. Derrick Neal. Chronic stable medical conditions include COPD, hyperlipidemia, hypertension, ostial arthritis, lung cancer 6 years ago, peripheral artery disease, coronary artery stent, peripheral stents, anxiety depression. Patient presented after she was having central chest pressure at home then went to both the shoulder blades for the arms. Patient became nauseated. No dizziness or lightheadedness. She shortness of breath. No perspiration. Symptoms most lost about 40 minutes she was taken to [facility]. She was similar episode about 2 weeks ago. Transferred down here. Has some lower extremity edema Admitted with unstable angina. underwent cardiac catheterization. Found to have severe triple-vessel coronary artery disease. July 27-underwent coronary bypass 3, ligation of left atrial appendage. Patient received a unit of blood.postsurgery was found to have weakness on the left side.stroke was noted on the computed tomography scan. Including lacunar infarct.patient has been in and out of atrial fibrillation. computed tomography scan of the brain reviewed by Dr. Carrion: Acute bilateral cerebellar ischemic stroke as well as subacute evolving ischemic infarction involving the right MCA/TAZ watershed territory left caudate head ischemic infarction. [place] to be embolic. Today-ICU- ventilator: FiO2 40 people 5. Telemetry-sinus rhythm. 2 feeding set 54 mL an hour. Patient seems to follow some commands. Started to move the right side. Had a BM 2 days ago. Review of systems: Unable to obtain Active Medications Acetaminophen (Acetaminophen Tab 325 Mg Tab) 650 mg PEG/G-TUBE Q6HR PRN PRN Reason: Fever and/ or Pain Last Admin: 08/11/20 20:02 Dose: 650 mg Documented by: Albuterol/Ipratropium (Ipratropium-Albuterol 3 Ml Neb) 3 ml INHALATION RT-Q2H PRN PRN Reason: Shortness Of Breath Or Wheezing Last Admin: 08/12/20 15:46 Dose: 3 ml Documented by: Apixaban (Apixaban 5 Mg Tab) 5 mg PEG/G-TUBE BID [facility] Last Admin: 08/12/20 08:18 Dose: 5 mg Documented by: Aspirin (Aspirin 81 Mg) 81 mg PO DAILY [facility] Last Admin: 08/12/20 08:18 Dose: 81 mg Documented by: Benzocaine/Menthol (Benzocaine/Menthol Lozeng 1 Each Lozenge) 1 each MUCOUS MEM Q2H PRN PRN Reason: Sore Throat Bisacodyl (Bisacodyl 10 Mg Supp) 10 mg RECTAL DAILY PRN PRN Reason: Constipation Last Admin: 08/04/20 08:47 Dose: 10 mg Documented by: Chlorhexidine Gluconate (Chlorhexidine Gluconate 15 Ml Cup) 15 ml MUCOUS MEM BID [facility] Last Admin: 08/12/20 08:19 Dose: 15 ml Documented by: Fluconazole (Fluconazole 100 Mg Tab) 100 mg PO DAILY [facility] Last Admin: 08/12/20 08:19 Dose: 100 mg Documented by: Hydralazine HCl (Hydralazine Hcl 20 Mg/Ml 1 Ml Vial) 10 mg IVP Q6HR PRN PRN Reason: Blood Pressure - High Last Admin: 08/12/20 17:53 Dose: 10 mg Documented by: Levetiracetam 500 mg/ Sodium (Chloride) 105 mls @ 400 mls/hr IVPB Q12HR@0000,1200 [facility] Last Admin: 08/12/20 13:20 Dose: 400 mls/hr Documented by: Sodium Chloride (Saline 0.45%) 1,000 mls @ 10 mls/hr IV .Q24H [facility] Last Admin: 08/12/20 17:43 Dose: 10 mls/hr Documented by: Cefepime HCl 2 gm/ Sodium (Chloride) 100 mls @ 25 mls/hr IVPB Q12HR [facility] Last Admin: 08/12/20 08:18 Dose: 25 mls/hr Documented by: Insulin Aspart (Insulin Aspart (Novolog) 100 Unit/Ml Vial) 0 unit SQ Q6HR [facility]; Protocol Last Admin: 08/12/20 13:21 Dose: 1 unit Documented by: Losartan Potassium (Losartan 25 Mg Tab) 25 mg PO HS [facility] Last Admin: 08/11/20 20:03 Dose: 25 mg Documented by: Magnesium Hydroxide (Magnesium Hydroxide 2,400 Mg/10 Ml Cup) 2,400 mg PO BID PRN PRN Reason: Constipation Metoclopramide HCl (Metoclopramide 5 Mg/Ml 2 Ml Vial) 10 mg IVP Q4H PRN PRN Reason: Nausea And Vomiting Metoprolol Tartrate (Metoprolol Tartrate 50 Mg Tab) 100 mg PO BID [facility] Last Admin: 08/12/20 08:19 Dose: 100 mg Documented by: Miscellaneous Information (Magnesium Replacement Protocol 1 Each Misc) 1 each MISCELLANE DAILY PRN; Protocol PRN Reason: Per Protocol Miscellaneous Information (Phosphorus Replacement Protoco 1 Each Misc) 1 each MISCELLANE DAILY PRN; Protocol PRN Reason: Per Protocol Miscellaneous Information (Potassium Replacement Protocol 1 Each Mis) 1 each MISCELLANE DAILY PRN; Protocol PRN Reason: Per Protocol Multi-Ingred Cream/Lotion/Oil/Oint (Artificial Tears Ointment 3.5 Gm Tube) 1 applic BOTH EYES Q4H [facility] Last Admin: 08/12/20 17:43 Dose: 1 applic Documented by: Ondansetron HCl (Ondansetron 4 Mg/2 Ml Vial) 4 mg IVP Q6HR PRN PRN Reason: Nausea And Vomiting Last Admin: 08/09/20 03:43 Dose: 4 mg Documented by: Pantoprazole Sodium (Pantoprazole 40 Mg/10 Ml Vial) 40 mg IVP DAILY [facility] Last Admin: 08/12/20 08:19 Dose: 40 mg Documented by: Senna/Docusate Sodium (Sennosides-Docusate Sodium 1 Each Tab) 2 each PO HS [facility] Last Admin: 08/11/20 20:02 Dose: 2 each Documented by: Sertraline HCl (Sertraline 100 Mg Tab) 100 mg PO DAILY [facility] Last Admin: 08/12/20 08:19 Dose: 100 mg Documented by: Sodium Chloride (Sodium Chloride 0.9% Flush 10 Ml Syringe) 10 ml IV BID [facility] Last Admin: 08/12/20 13:20 Dose: 10 ml Documented by: Past medical history to include: CHF, COPD, hyperlipidemia, hypertension, coronary artery disease with stent, osteoporosis, lung cancer 6 years ago, peripheral arterial disease, anxiety depression Social history: Lives with her son. Smoked a pack a day since the teenage years. Stop in 2011. Some alcohol in the past Physical examination: VITAL SIGNS: 98.6, 56, 17, 1 53 x 69, 97% on the ventilator GENERAL: Laying in bed, intubated, more eyes open. EYES: Pupils equal. Conjunctiva normal. HEENT: External appearance of nose and ears normal, oral cavity endotracheal tube. NECK: JVD unable to assess; masses not palpable. HEART: First and second heart sounds are normal; no edema. LUNGS: Respiratory rate increased; decreased breath sounds. ABDOMEN: Soft, nontender, liver spleen not palpable, no masses palpable. Da Silva catheter NEUROLOGICAL: Some movement of the right arm right leg. Left-sided neglect PSYCH: Unable to assess MUSCULOSKELETAL: Evidence of OA Investigations: August 12: WBC 17.5 hemoglobin 8 platelets 550 AST 27 ALT 1022 creatinine 0.5 August 11: Potassium 3.6 creatinine 0.5 for AST 456 ALT 1159 August 10: WBC 17.7 hemoglobin 7.9 platelets 617 potassium 3.5 crit 0.58 AST 18271 ALT 1971 Computed tomography scan of the brain: Age related changes but chronic small vessel disease. July 22: Potassium 4.1 creatinine 0.97 proBNP 1270 Cardiac gxneewjxnfhyhwd-ceyrdx-lgxzks disease 2-D echocardiogram-moderate concentric LVH, EF 50-55% hypokinetic galicia Troponin I 0.018, 0.012 Coronavirus [PCR]-not detected EKG tracing personally reviewed by me-normal sinus rhythm, PVC Assessment and plan: -Coronary artery bypass [id number] July 27. On Plavix, Lopressor, Zetia -Acute postprocedure blood loss anemia, as expected from surgery, received 1 unit of blood -Hypotensive shock from volume loss patient was on levo -improved -Likely ischemic hepatitis. Slowly improving. -Unstable angina, POA -Triple-vessel coronary artery disease -. Plavix, Lopressor, Zetia -Acute on chronic congestive heart diastolic dysfunction EF 50-55% received IV Lasix. Stabilized. Follow clinically -COPD in a previous smoker, on DuoNeb -Hyperlipidemia, continue Lipitor -Essential hypertension, follow closely -Primary osteoarthritis, take Tylenol when necessary -History of lung cancer 6 years ago -Peripheral arterial disease with stenting, on aspirin and Plavix -Anxiety depression otherwise specified-on Zoloft -Chronic insomnia continue with melatonin -Paroxysmal atrial fibrillation.in and out of rapid atrial fibrillation - on IV amiodarone -Acute bilateral cerebellar ischemic stroke as well as subacute evolving ischemic infarction involving the right MCA/TAZ watershed territory left caudate head ischemic infarction. [place] to be embolic./post surgical-slow to respond Patient remains on the ventilator. On DuoNeb, when necessary, eliquis, aspirin, IV cefepime, IV Keppra, half saline at 50 mL an hour. Prognosis guarded. Change Keppra to by mouth
[2020-08-12] MEDS: SENNOSIDES-DOCUSATE SODIUM 1 EACH TAB PO SCH (20:05)
[2020-08-12] MEDS: levETIRAcetam 500 MG TAB PO SCH (20:05)
[2020-08-12] MEDS: LOSARTAN 25 MG TAB PO SCH (20:05)
--- NOTE | 2020-08-12 22:37 | PN ---
PROGRESS NOTE DATE OF SERVICE: 08/12/2020 REASON FOR FOLLOWUP: Leukocytosis and pneumonia. INTERVAL HISTORY: Patient is running a fever with T-max of 100.9 degrees Fahrenheit. The patient is hemodynamically stable. FiO2 is currently stable. No significant purulent secretions through the ET. No diarrhea or any other changes reported by the nursing staff. The patient unable to provide any history. PHYSICAL EXAMINATION: On examination, blood pressure 113/51 with a pulse of 73, temperature 99.1. She is 99% on 40% FiO2. General description is an elderly female lying in bed in no distress. Respiratory system: Unlabored breathing, decreased breath sounds at bases. No wheeze. Heart S1, S2. Regular rate and rhythm. Abdomen soft, no tenderness. LABS: Hemoglobin 8, white count 17.5, BUN of 39, creatinine 0.50. Sputum showing Klebsiella. Blood culture has been negative. DIAGNOSTIC IMPRESSION AND PLAN: Patient with elevated white count, low grader fever, which is multifactorial in this patient possible component of pneumonia. Sputum has been Klebsiella. Chest x- ray more of ARDS pattern plus-minus oropharyngeal candidiasis. Patient is covered broadly with cefepime, Diflucan, to continue. Vanco has been discontinued. Culture repeated so far negative. Continue supportive care. MMODL / IJN: [id number] / BELINDA
[2020-08-12 23:58] LABS: Glucose,Whole Blood 160 mg/dL (75-99)
[2020-08-13] MEDS: ARTIFICIAL TEARS OINTMENT 3.5 GM TUBE BOTH EYES SCH ×6 (00:15→20:00)
[2020-08-13] MEDS: INSULIN ASPART (NovoLOG) 100 UNIT/ML VIAL SQ SCH ×4 (00:15→18:07)
[2020-08-13 04:35] LABS: Anisocytosis Slight; HCT 23.5 % (34.0-46.0); HGB 7.4 gm/dL (11.4-16.0); Hypochromasia Marked; MCH 30.5 pg (25.0-35.0); MCHC 31.5 g/dL (31.0-37.0); Macrocytosis Slight; Platelet Count 386 k/uL (150-450); Poikilocytosis Slight; RBC 2.42 m/uL (3.80-5.40); RDW 18.1 % (11.5-15.5); WBC 13.7 k/uL (3.8-10.6)
[2020-08-13 05:00] LABS: ALT 660 U/L (4-34); AST 144 U/L (14-36); African American GFR (CKD) >90 (>60 ml/min/1.73 sqM); Albumin 2.7 g/dL (3.5-5.0); Alkaline Phosphatase 92 U/L (38-126); Anion Gap 7 mmol/L; Blood Urea Nitrogen 44 mg/dL (7-17); Calcium 8.3 mg/dL (8.4-10.2); Carbon Dioxide 29 mmol/L (22-30); Chloride 107 mmol/L (98-107); Glucose 126 mg/dL (74-99); Non-African American GFR(CKD) >90 (>60 ml/min/1.73 sqM); Potassium 3.8 mmol/L (3.5-5.1); Sodium 143 mmol/L (137-145); Total Bilirubin 0.9 mg/dL (0.2-1.3); Total Protein 5.3 g/dL (6.3-8.2)
[2020-08-13 05:58] LABS: ABG Base Excess 6.8 mmol/L; ABG HCO3 30 mmol/L (21-25); ABG Oxygen Saturation 98.1 % (94-97); ABG PCO2 41 mmHg (35-45); ABG PH 7.48 (7.35-7.45); ABG PO2 85 mmHg (83-108); ABG TCO2 32 mmol/L (19-24); Allen Test Performed? Yes
[2020-08-13] MEDS ORDERED: POTASSIUM BICARBONATE/CIT AC 20 MEQ TABLET.EFF NG-TUBE SCH (06:00)
[2020-08-13 06:13] LABS: Glucose,Whole Blood 157 mg/dL (75-99)
[2020-08-13] MEDS: levETIRAcetam 500 MG TAB PO SCH ×2 (09:17→20:01)
[2020-08-13] MEDS: PANTOPRAZOLE 40 MG/10 ML VIAL IVP SCH (09:17)
[2020-08-13] MEDS: APIXABAN 5 MG TAB PEG/G-TUBE SCH ×2 (09:17→20:01)
[2020-08-13] MEDS: SERTRALINE 100 MG TAB PO SCH (09:17)
[2020-08-13] MEDS: FLUCONAZOLE 100 MG TAB PO SCH (09:17)
[2020-08-13] MEDS: METOPROLOL TARTRATE 50 MG TAB PO SCH ×2 (09:17→20:02)
[2020-08-13] MEDS: ASPIRIN 81 MG PO SCH (09:17)
[2020-08-13] MEDS: CHLORHEXIDINE GLUCONATE 15 ML CUP MUCOUS MEM SCH ×2 (09:17→20:01)
[2020-08-13] MEDS: CEFEPIME 2 GM in SODIUM CHLORIDE 0.9% 100 ML IVPB SCH ×2 (09:18→20:01)
--- NOTE | 2020-08-13 09:18 | P.PN ---
Subjective Progress Note Date: 08/13/20 Principal diagnosis: Triple-vessel coronary artery disease, unstable angina. Past medical history significant for coronary artery disease with previous myocardial infarction and stent placement, peripheral arterial disease with lower extremity stenting, lung cancer status post right lower lobectomy in 2011, hypertension, hyperlipidemia, COPD with previous tobacco dependence, anxiety/depression, family history of premature coronary artery disease with 2 of her sons having had coronary artery bypass grafting surgery, significant plaque formation more than 75% stenosis at the origins of both internal and external carotid arteries bilaterally on CTA. POD #17 coronary artery bypass grafting 3 vessels, left internal mammary artery to the left anterior descending artery, a reverse greater saphenous vein graft to the obtuse marginal artery, a reverse greater saphenous vein graft to the posterior descending artery, endoscopic harvesting of the right greater saphenous vein, ligation of the left atrial appendage using a 35 mm AtriClip, epi-aortic ultrasound and intraoperative transesophageal echocardiogram. POD #6 tracheostomy tube placement #[address] Alan. POD #6 EGD with her cutaneous endoscopic gastrostomy tube placement by Dr. Chavarria. Postoperative acute blood loss anemia, expected given hemodilution and cardiopulmonary bypass pump. Postoperative right acute/subacute cerebellar infarct on brain CT, unexpected, although possible complication of any open heart surgery, especially given patient's known history of significant arterial disease. Prolonged mechanical ventilation, unexpected, secondary to acute stroke. Paroxysmal atrial fibrillation, known common occurrence after open heart surgery. The patient was seen in follow-up today 08/13/2020 at her bedside in the intensive care unit. Her trach remains midline and intact with mechanical ventilator support in place, current mechanical ventilator settings are assist control 16, VC +450/0.80 FiO2 40% and a PEEP of 5. Oxygen saturations on current mechanical ventilator settings are 96%. ABG results this morning show a pH of 7.48, pCO2 41, pO2 85, HCO3 30, oxygen saturation 98% and base excess 6.8. Neurologically the patient is opening up her eyes with verbal stimuli this morning, no tracking noted the patient is smiling at times, squeezing her right hand with verbal stimuli and wiggling her toes to her right foot with verbal stimuli. No movement noted to her left upper extremity and no wiggling toes to her left lower extremity. Her T-max temperature in the last 24 hours is 99.9F, she remains on cefepime for antibiotic coverage. Her sputum culture from 08/08/2020 is still showing Klebsiella oxytoca. Blood cultures showed no growth after 72 hours from 08/09/2020. PEG tube remains in place with continuous tube feedings vital high-protein infusing at goal rate of 54 mL per hour with automatic water flushes 30 mL every 4 hours. Da Silva catheter remained for accurate I's and O's and has been draining 445 mL output in the last 8 hours. Laboratory results this morning show a WBC count that is trending down 13.7, hemoglobin 7.4, hematocrit 23.5, platelets 386, sodium 143, potassium 3.8, BUN 44, and creatinine 0.48. Also her liver enzymes are trending down this morning her AST is 144 and her ALT is 660. She remains hemodynamically stable and is currently on no 1 ectopic pressure support. Her son Christian was updated per phone yesterday and he is requesting assistance from behavioral health case manager/social work for a family meeting with Dr. Luong from neurology. Objective - Vital Signs Vital signs: Vital Signs Temp 98.8 F 08/13/20 08:00 Pulse 67 08/13/20 08:00 Resp 19 08/13/20 08:00 BP 127/58 08/13/20 08:00 Pulse Ox 95 08/13/20 08:00 Intake & Output 08/12/20 08/13/20 08/13/20 18:59 06:59 18:59 Intake Total 1068 988 188 Output Total 1595 650 125 Balance -527 338 63 Weight 95.1 kg Intake: IV 260 220 20 Cefepime 2 gm In Sodium 100 100 Chloride 0.9% 100 ml @ 25 mls/hr IVPB Q12HR [facility] Rx #:[id number] Sodium Chloride 0.45% 1, 160 120 20 000 ml @ 10 mls/hr IV . Q24H [facility] Rx#:[id number] Oral 100 Tube Feeding 648 648 108 Other 60 120 60 Output: Urine 1595 650 125 Other: Voiding Method Indwelling Catheter Indwelling Catheter ABP, PAP, CO, CI - Last Documented Arterial Blood Pressure 113/55 Pulmonary Artery Pressure 40/20 Cardiac Output 4.3 Cardiac Index 2.2 - Exam The patient remains with mechanical ventilator support, tracheostomy tube midline and in place. Her sedation continues to be on hold. She has been opening up her eyes to verbal stimuli this morning and is smiling, following some simple commands with squeezing her hand on the right and wiggling her toes to her right foot. No movement to her left upper extremity for left lower extremity with verbal stimuli. - Constitutional General appearance: Present: no acute distress, obese - EENT Eyes: Present: PERRLA, normal appearance. Absent: scleral icterus ENT: Present: hearing grossly normal - Neck Details: Neck is supple, no JVD. Neck: Absent: lymphadenopathy - Respiratory Details: Lung sounds with few scattered rhonchi throughout, diminished bilateral bases. No wheezes, or crackles. Respirations are symmetrical and nonlabored with mechanical ventilator support. #7 Bivona trach remains midline and intact. Current mechanical ventilator settings are assist control 16, VC+ 400/0.80, FiO2 40% and a PEEP of 5. ABG results this morning show a pH 7.48, pCO2 41, pO2 85, HCO3 30, oxygen saturation 98% and base excess 6.8. - Cardiovascular Details: Regular rhythm and rate. S1 and S2 present, negative for S3, gallop or murmur. Bedside telemetry showing normal sinus rhythm heart rate 71. Sternum is stable. Heart hugger is in place. Knee-high DEBI hose and sequential compression devices in place to her bilateral lower extremities. +1 generalized edema. Left arm PICC line in place and functioning. - Gastrointestinal Gastrointestinal Comment(s): Abdomen is soft, nontender and nondistended. Active bowel sounds present in all 4 quadrants. No guarding or rigidity. No organomegaly appreciated. Left upper quadrant abdomen PEG tube in place with continuous tube feedings infusing with vital high-protein at 54 mL per hour and 30 mL every 4 hours automatic water flushes. - Genitourinary Genitourinary Comment(s): Da Silva catheter for accurate I&O. Draining clear yellow urine with 445 mL output in the last 8 hours. - Integumentary Integumentary Comment(s): Skin is warm and dry. No clubbing or cyanosis is present. Midline sternal incision is clean, dry and approximated. No drainage or redness is present. Right lower extremity EVH site clean, dry and approximated. No drainage or redness is present. - Neurologic Neurologic Comment(s): Opening up her eyes with verbal stimuli. Occasional smiling. Following some simple commands to her right upper extremity and right lower extremity with squeezing her hands and wiggling her toes. No spontaneous movement to her left lower extremity and left upper extremity with verbal stimuli. Does withdrawal from noxious stimuli to all 4 extremities. - Musculoskeletal Musculoskeletal: Present: generalized weakness - Psychiatric Psychiatric Comment(s): Open size with verbal stimuli. Unable to accurately assess her orientation at this time as the patient remains with a tracheostomy tube in place with mechanical ventilator support. - Allied health notes Allied health notes reviewed: nursing - Labs CBC & Chem 7: 08/13/20 04:08 08/13/20 04:08 Labs: Abnormal Lab Results - Last 24 Hours (Table) 08/12/20 08/12/20 08/12/20 Range/Units 11:35 13:19 17:49 WBC (3.8-10.6) k/uL RBC (3.80-5.40) m/uL Hgb (11.4-16.0) gm/dL Hct (34.0-46.0) % RDW (11.5-15.5) % ABG pH (7.35-7.45) ABG HCO3 (21-25) mmol/L ABG Total CO2 (19-24) mmol/L ABG O2 Saturation (94-97) % BUN (7-17) mg/dL Creatinine (0.52-1.04) mg/dL Glucose (74-99) mg/dL POC Glucose (mg/dL) 148 H 159 H 143 H (75-99) mg/dL Calcium (8.4-10.2) mg/dL AST (14-36) U/L ALT (4-34) U/L Total Protein (6.3-8.2) g/dL Albumin (3.5-5.0) g/dL 08/12/20 08/13/20 08/13/20 Range/Units 23:57 04:08 04:08 WBC 13.7 H (3.8-10.6) k/uL RBC 2.42 L (3.80-5.40) m/uL Hgb 7.4 L (11.4-16.0) gm/dL Hct 23.5 L (34.0-46.0) % RDW 18.1 H (11.5-15.5) % ABG pH (7.35-7.45) ABG HCO3 (21-25) mmol/L ABG Total CO2 (19-24) mmol/L ABG O2 Saturation (94-97) % BUN 44 H (7-17) mg/dL Creatinine 0.48 L (0.52-1.04) mg/dL Glucose 126 H (74-99) mg/dL POC Glucose (mg/dL) 160 H (75-99) mg/dL Calcium 8.3 L (8.4-10.2) mg/dL AST 144 H (14-36) U/L ALT 660 H (4-34) U/L Total Protein 5.3 L (6.3-8.2) g/dL Albumin 2.7 L (3.5-5.0) g/dL 08/13/20 08/13/20 Range/Units 05:53 06:11 WBC (3.8-10.6) k/uL RBC (3.80-5.40) m/uL Hgb (11.4-16.0) gm/dL Hct (34.0-46.0) % RDW (11.5-15.5) % ABG pH 7.48 H (7.35-7.45) ABG HCO3 30 H (21-25) mmol/L ABG Total CO2 32 H (19-24) mmol/L ABG O2 Saturation 98.1 H (94-97) % BUN (7-17) mg/dL Creatinine (0.52-1.04) mg/dL Glucose (74-99) mg/dL POC Glucose (mg/dL) 157 H (75-99) mg/dL Calcium (8.4-10.2) mg/dL AST (14-36) U/L ALT (4-34) U/L Total Protein (6.3-8.2) g/dL Albumin (3.5-5.0) g/dL Microbiology - Last 24 Hours (Table) 08/09/20 11:50 Blood Culture - Preliminary Blood No Growth after 72 hours 08/09/20 11:29 Blood Culture - Preliminary Blood No Growth after 72 hours 08/08/20 11:05 Blood Culture Gram Stain - Final Blood Blood Culture - Final Coagulase Negative Staph - Imaging and Cardiology Chest x-ray: report reviewed, image reviewed Assessment and Plan Assessment: 1. Triple-vessel coronary artery disease, unstable angina, status post three- vessel CABG 2. History of coronary artery disease with previous myocardial infarction and stent placement 3. Peripheral arterial disease with lower extremity stenting 4. History of lung cancer status post right lower lobectomy 5. Hypertension, currently hypotensive requiring IV pressors 6. Hyperlipidemia, treated, cholesterol 152, LDL 85 7. COPD with previous tobacco dependence, preoperative FEV1 82% of predicted 8. Anxiety/depression 9. Family history of premature coronary artery disease 10. Postoperative acute blood loss anemia, expected, status post 1 unit packed red blood cell transfusion 11. Postoperative acute/subacute right cerebellar infarct, unexpected, with evidence of previous right parietal stroke 12. Bilateral internal carotid artery disease greater than 75% present on CTA 13. Prolonged mechanical ventilation, unexpected acute hypoxemic respiratory failure because of her recent CVA, status post tracheostomy placement 14. Paroxysmal atrial fibrillation, status post ligation of the left atrial appendage, currently sinus rhythm 15. Leukocytosis, final sputum culture results shows Klebsiella oxytoca and Nick albicans 16. Malnutrition, status post percutaneous endoscopic gastrostomy tube placement 17. Elevated transaminase enzymes, likely secondary to amiodarone and Lipitor which are currently on hold, liver enzymes continue to trend down Plan: 1. Continue aspirin, and beta tran. Continue Metoprolol tartrate 100 per G- tube twice. 2. No diuretics today. 3. Mechanical ventilator management per pulmonology/critical care management. Bronchodilators per pulmonology/critical care management. 4. The patient son Christian has been updated on her care this morning per phone. They are requesting a meeting with Dr. Luong from neurology. 5. Continue to monitor daily labs and chest x-rays. Electrolyte replacement per protocol. 6. GI and DVT prophylaxis. 7. Continue to hold amiodarone and statin due to her elevated liver enzymes. Liver enzymes continue to trend down, AST is 144 and ALT is 660 today. We will restart her statin once her liver enzymes have normalized. 8. Continue Da Silva catheter and record accurate I's and O's. The catheter was exchanged on 08/08/2020. 9. Pain control with current when necessary orders. 10. Strict accurate intake and output. Daily weights 11. Final result of sputum culture showing Klebsiella oxytoca from 08/08/2020, currently on cefepime for antibiotic treatment. Also on Diflucan for positive nick in her sputum culture on 08/05/2020. T-max temperature in the last 24 hours 99.9 F. WBC count today is 13.7 which continues trending down. 12. Antibiotic management per infectious disease recommendations. 13. Continue Eliquis 5 mg per PEG tube twice a day for anticoagulation. 14. spool worker working with family for family meeting with Dr. Luong from neurology. 15. Anticipate transfer to long-term acute care center this week. 16. More recommendations to follow based on patient's clinical course. Time with Patient: Greater than 30
[2020-08-13] MEDS: FUROSEMIDE 10 MG/ML 4 ML VIAL IV SCH ×2 (09:20→20:01)
--- NOTE | 2020-08-13 10:15 | XR ---
EXAMINATION TYPE: XR chest 1V portable DATE OF EXAM: 08/13/2020 COMPARISON: 08/12/2020 HISTORY: Postop CABG TECHNIQUE: Single frontal view of the chest is obtained. FINDINGS: Diffuse interstitial pattern with diffuse cardiomegaly, bilateral consolidation and pleura l effusion. Tracheostomy tube postsurgical changes are seen. Left-sided PICC line is seen and there i s suggestion of a lead or stimulated catheter overlying the thoracic region IMPRESSION: 1. Diffuse pleural-parenchymal changes stable correlate for CHF otherwise consider pneumonia.
[2020-08-13 11:45] LABS: Glucose,Whole Blood 145 mg/dL (75-99)
--- NOTE | 2020-08-13 12:06 | P.PN ---
Subjective Progress Note Date: 08/13/20 This is a 75-year-old female with history of I to coronary bypass surgery done about 17 days ago with the LINDER graft to LAD, reverse vein graft to the OM branch and also to the posterior descending coronary artery. Patient unfortunately developed a CVA. Patient's mental status seemed to be fluctuating. Unable to follow commands today. Barely response to verbal stimuli. Patient had cerebellar infarct or on the computed tomography scan. Patient is still on a ventilator. Patient also has a PEG tube. Hemodynamically patient appears stable. Patient's family wants to meet with neurologist regarding long-term prognosis and further discussions. Possible transfer for long-term care. Continue current medical therapy Objective - Vital Signs Vital signs: Vital Signs Temp 98.8 F 08/13/20 08:00 Pulse 64 08/13/20 11:00 Resp 16 08/13/20 11:00 BP 161/78 08/13/20 11:00 Pulse Ox 97 08/13/20 11:00 Intake & Output 08/12/20 08/13/20 08/13/20 18:59 06:59 18:59 Intake Total 1068 988 470 Output Total 1595 650 950 Balance -527 338 -480 Weight 95.1 kg Intake: IV 260 220 50 Cefepime 2 gm In Sodium 100 100 Chloride 0.9% 100 ml @ 25 mls/hr IVPB Q12HR [facility] Rx #:[id number] Sodium Chloride 0.45% 1, 160 120 50 000 ml @ 10 mls/hr IV . Q24H [facility] Rx#:[id number] Oral 100 Tube Feeding 648 648 270 Other 60 120 150 Output: Urine 1595 650 950 Other: Voiding Method Indwelling Catheter Indwelling Catheter Indwelling Catheter ABP, PAP, CO, CI - Last Documented Arterial Blood Pressure 113/55 Pulmonary Artery Pressure 40/20 Cardiac Output 4.3 Cardiac Index 2.2 - Exam GENERAL EXAM: Patient is intubated on mechanical ventilator HEENT: Normocephalic. NECK: No masses, no nuchal rigidity. CHEST: No chest wall deformity. LUNGS: Diminished air exchange HEART: S1 and S2 normal with no audible mumurs or gallops. Regular rhythm, femorals equal on both sides.. ABDOMEN: No hepatosplenomegaly, normal bowel sounds, no guarding or rigidity. SKIN: No rashes CENTRAL NERVOUS SYSTEM: As per neurology EXTREMITIES: No cyanosis, clubbing or edema. - Labs CBC & Chem 7: 08/13/20 04:08 08/13/20 08:56 Labs: Abnormal Lab Results - Last 24 Hours (Table) 08/12/20 08/12/20 08/12/20 Range/Units 13:19 17:49 23:57 WBC (3.8-10.6) k/uL RBC (3.80-5.40) m/uL Hgb (11.4-16.0) gm/dL Hct (34.0-46.0) % RDW (11.5-15.5) % ABG pH (7.35-7.45) ABG HCO3 (21-25) mmol/L ABG Total CO2 (19-24) mmol/L ABG O2 Saturation (94-97) % BUN (7-17) mg/dL Creatinine (0.52-1.04) mg/dL Glucose (74-99) mg/dL POC Glucose (mg/dL) 159 H 143 H 160 H (75-99) mg/dL Calcium (8.4-10.2) mg/dL AST (14-36) U/L ALT (4-34) U/L Total Protein (6.3-8.2) g/dL Albumin (3.5-5.0) g/dL 08/13/20 08/13/20 08/13/20 Range/Units 04:08 04:08 05:53 WBC 13.7 H (3.8-10.6) k/uL RBC 2.42 L (3.80-5.40) m/uL Hgb 7.4 L (11.4-16.0) gm/dL Hct 23.5 L (34.0-46.0) % RDW 18.1 H (11.5-15.5) % ABG pH 7.48 H (7.35-7.45) ABG HCO3 30 H (21-25) mmol/L ABG Total CO2 32 H (19-24) mmol/L ABG O2 Saturation 98.1 H (94-97) % BUN 44 H (7-17) mg/dL Creatinine 0.48 L (0.52-1.04) mg/dL Glucose 126 H (74-99) mg/dL POC Glucose (mg/dL) (75-99) mg/dL Calcium 8.3 L (8.4-10.2) mg/dL AST 144 H (14-36) U/L ALT 660 H (4-34) U/L Total Protein 5.3 L (6.3-8.2) g/dL Albumin 2.7 L (3.5-5.0) g/dL 08/13/20 08/13/20 Range/Units 06:11 11:44 WBC (3.8-10.6) k/uL RBC (3.80-5.40) m/uL Hgb (11.4-16.0) gm/dL Hct (34.0-46.0) % RDW (11.5-15.5) % ABG pH (7.35-7.45) ABG HCO3 (21-25) mmol/L ABG Total CO2 (19-24) mmol/L ABG O2 Saturation (94-97) % BUN (7-17) mg/dL Creatinine (0.52-1.04) mg/dL Glucose (74-99) mg/dL POC Glucose (mg/dL) 157 H 145 H (75-99) mg/dL Calcium (8.4-10.2) mg/dL AST (14-36) U/L ALT (4-34) U/L Total Protein (6.3-8.2) g/dL Albumin (3.5-5.0) g/dL Microbiology - Last 24 Hours (Table) 08/09/20 11:50 Blood Culture - Preliminary Blood No Growth after 72 hours 08/09/20 11:29 Blood Culture - Preliminary Blood No Growth after 72 hours 08/08/20 11:05 Blood Culture Gram Stain - Final Blood Blood Culture - Final Coagulase Negative Staph Assessment and Plan (1) Status post aorto-coronary artery bypass graft Current Visit: Yes Status: Acute Code(s): Z95.1 - PRESENCE OF AORTOCORONARY BYPASS GRAFT SNOMED Code(s): 990430324 (2) CVA (cerebral vascular accident) Current Visit: Yes Status: Acute Code(s): I63.9 - CEREBRAL INFARCTION, UNSPECIFIED SNOMED Code(s): 670748024 (3) History of lung cancer Current Visit: Yes Status: Acute Code(s): Z85.118 - PERSONAL HISTORY OF MALIGNANT NEOPLASM OF BRONCHUS AND LUNG SNOMED Code(s): 972280926 (4) Bilateral carotid artery disease Current Visit: Yes Status: Acute Code(s): I77.9 - DISORDER OF ARTERIES AND ARTERIOLES, UNSPECIFIED SNOMED Code(s): 691631491 (5) Respiratory failure Current Visit: Yes Status: Acute Code(s): J96.90 - RESPIRATORY FAILURE, UNSP, UNSP W HYPOXIA OR HYPERCAPNIA SNOMED Code(s): 598421395 Plan: Continue current management. Possible transfer to long-term care . We'll follow as needed
[2020-08-13] MEDS: SODIUM CHLORIDE 0.45% 1,000 ML IV SCH (12:31)
--- NOTE | 2020-08-13 12:38 | P.PN ---
Subjective Progress Note Date: 08/13/20 CHIEF COMPLAINT: Malnutrition HISTORY OF PRESENT ILLNESS: Patient seen and examined with Dr. Chavarria. Ramirez whiting is in the ICU. She is status post PEG tube placement by Dr. Chavarria on 08/06/2020. Patient is tolerating tube feedings. She is status post tracheostomy placement by Dr. Alan. Patient is intubated. Patient did have a temp of 100.9 last night. 98.8 today. WBC 13.7 PHYSICAL EXAM: VITAL SIGNS: Reviewed. GENERAL: Well-developed in no acute distress. HEENT: No sclera icterus. Extraocular movements grossly intact. Moist buccal mucosa. Head is atraumatic, normocephalic. ABDOMEN: Soft. Nondistended. Nontender. PEG tube site clean dry and intact NEUROLOGIC: Patient is intubated. ASSESSMENT: 1. Moderate protein calorie malnutrition status post PEG tube placement PLAN: -Continue supportive care -Continue PEG tube feedings Physician Stretcher Leveler Operator Helper note has been reviewed by physician. Signing provider agrees with the documented findings, assessment, and plan of care. Objective - Vital Signs Vital signs: Vital Signs Temp 98.8 F 08/13/20 08:00 Pulse 64 08/13/20 11:00 Resp 16 08/13/20 11:00 BP 161/78 08/13/20 11:00 Pulse Ox 97 08/13/20 11:00 Intake & Output 08/12/20 08/13/20 08/13/20 18:59 06:59 18:59 Intake Total 1068 988 470 Output Total 1595 650 950 Balance -527 338 -480 Weight 95.1 kg Intake: IV 260 220 50 Cefepime 2 gm In Sodium 100 100 Chloride 0.9% 100 ml @ 25 mls/hr IVPB Q12HR [facility] Rx #:[id number] Sodium Chloride 0.45% 1, 160 120 50 000 ml @ 10 mls/hr IV . Q24H [facility] Rx#:[id number] Oral 100 Tube Feeding 648 648 270 Other 60 120 150 Output: Urine 1595 650 950 Other: Voiding Method Indwelling Catheter Indwelling Catheter Indwelling Catheter ABP, PAP, CO, CI - Last Documented Arterial Blood Pressure 113/55 Pulmonary Artery Pressure 40/20 Cardiac Output 4.3 Cardiac Index 2.2 - Labs CBC & Chem 7: 08/13/20 04:08 08/13/20 08:56 Labs: Abnormal Lab Results - Last 24 Hours (Table) 08/12/20 08/12/20 08/12/20 Range/Units 13:19 17:49 23:57 WBC (3.8-10.6) k/uL RBC (3.80-5.40) m/uL Hgb (11.4-16.0) gm/dL Hct (34.0-46.0) % RDW (11.5-15.5) % ABG pH (7.35-7.45) ABG HCO3 (21-25) mmol/L ABG Total CO2 (19-24) mmol/L ABG O2 Saturation (94-97) % BUN (7-17) mg/dL Creatinine (0.52-1.04) mg/dL Glucose (74-99) mg/dL POC Glucose (mg/dL) 159 H 143 H 160 H (75-99) mg/dL Calcium (8.4-10.2) mg/dL AST (14-36) U/L ALT (4-34) U/L Total Protein (6.3-8.2) g/dL Albumin (3.5-5.0) g/dL 08/13/20 08/13/20 08/13/20 Range/Units 04:08 04:08 05:53 WBC 13.7 H (3.8-10.6) k/uL RBC 2.42 L (3.80-5.40) m/uL Hgb 7.4 L (11.4-16.0) gm/dL Hct 23.5 L (34.0-46.0) % RDW 18.1 H (11.5-15.5) % ABG pH 7.48 H (7.35-7.45) ABG HCO3 30 H (21-25) mmol/L ABG Total CO2 32 H (19-24) mmol/L ABG O2 Saturation 98.1 H (94-97) % BUN 44 H (7-17) mg/dL Creatinine 0.48 L (0.52-1.04) mg/dL Glucose 126 H (74-99) mg/dL POC Glucose (mg/dL) (75-99) mg/dL Calcium 8.3 L (8.4-10.2) mg/dL AST 144 H (14-36) U/L ALT 660 H (4-34) U/L Total Protein 5.3 L (6.3-8.2) g/dL Albumin 2.7 L (3.5-5.0) g/dL 08/13/20 08/13/20 Range/Units 06:11 11:44 WBC (3.8-10.6) k/uL RBC (3.80-5.40) m/uL Hgb (11.4-16.0) gm/dL Hct (34.0-46.0) % RDW (11.5-15.5) % ABG pH (7.35-7.45) ABG HCO3 (21-25) mmol/L ABG Total CO2 (19-24) mmol/L ABG O2 Saturation (94-97) % BUN (7-17) mg/dL Creatinine (0.52-1.04) mg/dL Glucose (74-99) mg/dL POC Glucose (mg/dL) 157 H 145 H (75-99) mg/dL Calcium (8.4-10.2) mg/dL AST (14-36) U/L ALT (4-34) U/L Total Protein (6.3-8.2) g/dL Albumin (3.5-5.0) g/dL Microbiology - Last 24 Hours (Table) 08/09/20 11:50 Blood Culture - Preliminary Blood No Growth after 72 hours 08/09/20 11:29 Blood Culture - Preliminary Blood No Growth after 72 hours 08/08/20 11:05 Blood Culture Gram Stain - Final Blood Blood Culture - Final Coagulase Negative Staph
[2020-08-13 14:26] VITALS: BMI 33.8
--- NOTE | 2020-08-13 14:53 | P.PN ---
Subjective Progress Note Date: 08/13/20 08/13/2020: Patient had undergone tracheostomy and PEG placement on 08/06/2020. Patient is otherwise not significantly improved as compared to last seen 7 days ago. Currently not on any sedatives. 08/05/2020: Patient essentially unchanged. Currently on propofol 40 g. With sedation, she moves her right arm slightly, but not consistently. Flaccid on the left side, with some minimal movement with painful stimuli. At present patient is on sedation. 08/03/2020: Patient continues to be encephalopathic, has been off sedation, following some commands as per examination. 08/02/2020: Patient was seen for a follow-up. Patient's son Saurav was also present today. Patient apparently underwent a sedation holiday at noon. By 2 PM her respiration went up to 40, heart rate went up to 160, and she developed atrial fibrillation with rapid ventricular rate. Patient was moving right side well, but no movement left upper extremity. She was moving the right arm, but does not follow commands. She has upward gaze. She is now back on propofol 20 g. She is not tracking, not following commands. 08/01/2020: Patient continues to be on mechanical ventilation. Per nursing report, sedation was decreased from propofol 25 g down to 10 mcg, patient did not improve mentally, but became very tachycardic with respiration going up to 40/m. Therefore she was placed back on high-dose sedation. 07/31/2020: Patient was seen at 10:10 AM. Patient has been off sedation since 9 AM. Patient does open her eyes, but gaze upwards into the right. Pupils are round and reacting. Patient is completely flaccid on the left side. Patient right arm also is flaccid. Very minimal movement of the right leg. 07/30/2020 Patient was seen for initial consultation by Dr. Matt Luong on 07/28/2020. Please refer to his detailed report. This is a follow-up performed. Patient came to the hospital with chest pain, underwent CABG on 07/27/2020. After patient was off sedation, was noted to have left-sided weakness. CT head showed acute right cerebellar infarct and chronic right parietal ischemic infarct. Patient has been severely encephalopathic. Patient is having some abnormal eye movement, for which EEG was performed, which revealed burst and suppression activity likely due to medication effect propofol. There is no focal slowing or obvious epileptiform activity. Clinical correlation is recommended. Patient was placed on Keppra 500 mg twice a day after loading dose of 1000 mg. Patient at present is on propofol 40 g. When the sedation is decreased, patient moves her right arm and right leg spontaneously but non-purposefully. Her left arm is flaccid. She has some movement in the left leg but not as good as the right side. Patient has developed atrial fibrillation with rapid ventricular rate overnight, for which she was started on amiodarone drip. This morning at 10:30 she converted back to normal sinus rhythm. Patient had a repeat CT head performed 07/29/2020, which revealed no significant change. Relatively recent ischemic insult in the right cerebellar hemisphere. No evidence for hemorrhagic transformation. This probably would not explain left hemiparesis as noted on examination by the staff. Patient at present is sedated, therefore examination limited. Objective - Vital Signs Vital signs: Vital Signs Temp 99.3 F 08/13/20 12:00 Pulse 59 L 08/13/20 14:00 Resp 16 08/13/20 14:00 BP 160/77 08/13/20 14:00 Pulse Ox 95 08/13/20 14:00 Intake & Output 08/12/20 08/13/20 08/13/20 18:59 06:59 18:59 Intake Total 1068 988 692 Output Total 1732 957 2813 Balance -527 338 -668 Weight 95.1 kg 95.1 kg Intake: IV 260 220 80 Cefepime 2 gm In Sodium 100 100 Chloride 0.9% 100 ml @ 25 mls/hr IVPB Q12HR IN[facility] Rx #:[id number] Sodium Chloride 0.45% 1, 160 120 80 000 ml @ 10 mls/hr IV . Q24H IN[facility] Rx#:[id number] Oral 100 Tube Feeding 648 648 432 Other 60 120 180 Output: Urine 7302 768 8904 Other: Voiding Method Indwelling Catheter Indwelling Catheter Indwelling Catheter # Bowel Movements 1 ABP, PAP, CO, CI - Last Documented Arterial Blood Pressure 113/55 Pulmonary Artery Pressure 40/20 Cardiac Output 4.3 Cardiac Index 2.2 - Exam Patient has tracheostomy in place. Patient keeps her eyes closed. Patient spontaneously moves the right arm and right leg. In fact on painful stimuli, she did move it fairly actively the right arm and right leg. She has mild movement of the left leg, but no movement of the left upper limb. Her pupils are round 4 mm and reacting to 3 mm bilaterally. Oculocephalics are present. Patient has bilateral Babinski. Patient did not follow commands. - Labs CBC & Chem 7: 08/13/20 04:08 08/13/20 08:56 Labs: Abnormal Lab Results - Last 24 Hours (Table) 08/12/20 08/12/20 08/13/20 Range/Units 17:49 23:57 04:08 WBC 13.7 H (3.8-10.6) k/uL RBC 2.42 L (3.80-5.40) m/uL Hgb 7.4 L (11.4-16.0) gm/dL Hct 23.5 L (34.0-46.0) % RDW 18.1 H (11.5-15.5) % ABG pH (7.35-7.45) ABG HCO3 (21-25) mmol/L ABG Total CO2 (19-24) mmol/L ABG O2 Saturation (94-97) % BUN (7-17) mg/dL Creatinine (0.52-1.04) mg/dL Glucose (74-99) mg/dL POC Glucose (mg/dL) 143 H 160 H (75-99) mg/dL Calcium (8.4-10.2) mg/dL AST (14-36) U/L ALT (4-34) U/L Total Protein (6.3-8.2) g/dL Albumin (3.5-5.0) g/dL 08/13/20 08/13/20 08/13/20 Range/Units 04:08 05:53 06:11 WBC (3.8-10.6) k/uL RBC (3.80-5.40) m/uL Hgb (11.4-16.0) gm/dL Hct (34.0-46.0) % RDW (11.5-15.5) % ABG pH 7.48 H (7.35-7.45) ABG HCO3 30 H (21-25) mmol/L ABG Total CO2 32 H (19-24) mmol/L ABG O2 Saturation 98.1 H (94-97) % BUN 44 H (7-17) mg/dL Creatinine 0.48 L (0.52-1.04) mg/dL Glucose 126 H (74-99) mg/dL POC Glucose (mg/dL) 157 H (75-99) mg/dL Calcium 8.3 L (8.4-10.2) mg/dL AST 144 H (14-36) U/L ALT 660 H (4-34) U/L Total Protein 5.3 L (6.3-8.2) g/dL Albumin 2.7 L (3.5-5.0) g/dL 08/13/20 Range/Units 11:44 WBC (3.8-10.6) k/uL RBC (3.80-5.40) m/uL Hgb (11.4-16.0) gm/dL Hct (34.0-46.0) % RDW (11.5-15.5) % ABG pH (7.35-7.45) ABG HCO3 (21-25) mmol/L ABG Total CO2 (19-24) mmol/L ABG O2 Saturation (94-97) % BUN (7-17) mg/dL Creatinine (0.52-1.04) mg/dL Glucose (74-99) mg/dL POC Glucose (mg/dL) 145 H (75-99) mg/dL Calcium (8.4-10.2) mg/dL AST (14-36) U/L ALT (4-34) U/L Total Protein (6.3-8.2) g/dL Albumin (3.5-5.0) g/dL Microbiology - Last 24 Hours (Table) 08/09/20 11:29 Blood Culture - Preliminary Blood No Growth after 96 hours 08/09/20 11:50 Blood Culture - Preliminary Blood No Growth after 72 hours Assessment and Plan Assessment: * Patient had a repeat computed tomography scan of head on 08/09/2020, which reported as no acute intracranial hemorrhage or midline shift. There is mild to moderate diffuse age-related cerebral atrophy and moderate to advanced chronic small vessel ischemic change redemonstrated. Small area of evolving subacute infarct involving the right superior cerebellar hemisphere is diminished in size from previous studies suggesting some interval salvage of prior diminished perfusion brain parenchyma. Subacute or old right posterior watershed infarct redemonstrated. New bilateral mastoid fluid collection, correlate for interval development of acute mastoiditis. * Patient probably had showers of emboli from cardiac source. Stroke likely cardioembolic. * New onset paroxysmal atrial fibrillation, on anticoagulation with Apixaban 5 mg twice a day. * Ventilator-dependent respiratory failure on mechanical ventilation. * Bilateral ICA stenosis > 75% per CTA, however no significant stenosis per carotid Doppler. * Altered mental status probably due to ischemic encephalopathy, with superimposed toxic metabolic causes. * Abnormal EEG with burst suppressed pattern, empirically on Keppra. Patient never had any clinical seizure. * Peripheral arterial disease with history of lower extremity stenting * History of lung cancer status post right lower lobectomy * Anemia * Hypertension * Hyperlipidemia * X tobacco use. Plan: * Patient is status post PEG and track placement on 08/06/2020. * Patient is not showing significant clinical improvement as compared to last exam except for slightly improved motor activity in the right arm and leg. Left side still hemiplegic, arm more than leg. Patient still not following commands. * Continue Apxaban 5 mg twice a day and aspirin 81 mg * Continue high-dose statins. * Continue long-term stroke rehab. Neurologically clear for discharge to long- term facility. * Discussed with patient's nurse in detail.
--- NOTE | 2020-08-13 15:30 | P.PN ---
Subjective Progress Note Date: 08/13/20 Principal diagnosis: Triple-vessel coronary artery disease. This is a 75-year-old female with history of multiple medical problems, she is primarily a patient of Dr. Derrick Neal. Known history of coronary artery disease, previous [place] and stent placement, history of peripheral vessel occlusive disease, history of lung cancer and previous right lower lobectomy hypertension, COPD, and strong family history of premature coronary artery disease. Patient presented to [facility] with chest pain and shortness of breath, she was noted to have elevated BNP and elevated troponins. Patient was found to have abnormal EKG with nonspecific ST and T-wave abnormalities, arrangements were made to transfer the patient to [facility], patient underwent cardiac catheterization, and demonstrated proximal LAD stenosis 85%, mid LAD stenosis 90%, first obtuse marginal branch of the circumflex was 70-80% stenosis. Right coronary artery stenosis of 99%. And there was diffuse intimal disease prior to the bifurcation into the PDA and PLV. Considering these abnormal findings on cardiac catheterization, cardiothoracic surgery was consulted, and the patient is scheduled to undergo myocardial revascularization sometime either late this week or next week patient has been on Plavix. Pulmonary-[facility], the patient has no cough no wheezing no fever no chills no hemoptysis and her FEV1 is basically unremarkable. Patient used to smoke, but has not smoked since she was diagnosed with lung cancer and had previous lobectomy back in 2011 Reevaluated today on 07/24/20, patient remains on the cardiac floor, patient is doing quite well, relatively asymptomatic, chest x-ray and CT of the chest was reviewed, patient did have minimal fibrotic changes in the right lower lobe, overall the patient is doing great, and I have already cleared the patient for surgery. My understanding from the patient that she is scheduled to have surgery early next week. May or may not be discharged home, and that is to be decided upon by cardiology and cardiothoracic surgery on the case. Pulmonary- [facility], patient is cleared for surgery and she is also cleared to go home if felt appropriate by other consultants. Patient was reevaluated today on 07/27/2020, patient underwent myocardial revascularization today, postoperatively she was brought up to the ICU on mechanical ventilation. Patient is now on FiO2 of 60%, tidal volume is 450, assist control rate of 12, and PEEP of 5. ABG showed a pO2 of 136 pCO2 of 45, pH of 7.30, hence I have increased the rate to 16, cut down the FiO2 to 50%, and I increased the flow rates from 60-70 L/m. Patient is on pressors in the form of norepinephrine at 0.07 mcg/kg/m. Chest x-ray showed mostly postoperative changes, changes of CABG, endotracheal tube, nasogastric tube, PA catheter, mediastinal drains and chest tubes are in appropriate position. Patient is doing fairly well, sedated, in no distress Patient was reevaluated today on 07/28/2020, remains intubated and mechanically ventilated. Patient is now on assist control mode of mechanical ventilation with a rate of 16, volume is 450 FiO2 is 50% and PEEP of 5. Unfortunately the patient was noted to have poor movement of her left upper and left lower extremity last night, CT of the head last night showed acute/subacute area of infarction in the right cerebellum along with probable area of chronic infarction in the right parietal region I evaluated the patient this morning, seems to be extremely restless and agitated, seems to be neglecting the left side, and both eyes are deviated to the right and upwards. Patient seems to be moving her right side quite well, however the left side seems to be relatively weak although she was squeezing my hand with her left hand. And minimal movement noted in the left lower extremity. Patient is on Precedex, and seems to be agitated in spite of Precedex. Her ventilatory settings are reasonable, ABG is reasonable, patient is basically extubate overall, however her mental status is a bit concerning specially with her extreme agitation, keeps pulling and shaking the railing of the bed on the right side. Patient was given Ativan, and I have recommended increasing Precedex. She is not truly quite ready to be extubated today. Again my major concern is her mental status. And she is yet to be seen by neurology on consultation. Blood pressure is quite high, 160 systolic, norepinephrine was discontinued during my evaluation. She was on a very minimal dose of 0.1 mcg/kg/m of norepinephrine patient was also on milrinone. CBC is relatively normal hemoglobin is 7.4. ABG this morning showed a pO2 of 92 pCO2 of 38 pH of 7.45. This was on 50% FiO2. Electrolytes and renal profile are normal. Chest x-ray showed mostly postoperative changes of CABG Reevaluated today on 08/13/2020 patient remains in the ICU, intubated and mechanically ventilated, she is status post tracheostomy and PEG tube placement. No signs of neurological recovery noted. Patient has episodes of spontaneous awakenings were and she opens her eyes, moves her right side, but she was never able to follow simple instructions for me. Her pupils remain equal and reactive. No evidence of seizure activity. Remains on mechanical ventilation with volume control plus targeted volume is 450 rate is 16 FiO2 is 40% PEEP is 5. Because of her mental status, could not pursue extubation, and the patient is now status post tracheostomy. X-ray continues to show minimal bilateral infiltrates. Her sputum has been positive for Klebsiella, and she remains on cefepime and she is also on Diflucan. Patient is receiving enteral feeding via PEG tube, been intermittently receiving Lasix. She is in atrial fibrillation, but rate controlled. And she is on long-term anticoagulation therapy with eliquis at 5 mg twice a day. Patient is to be seen by neurology today, and the plan is [facility], discharge planning is in progress Objective - Vital Signs Vital signs: Vital Signs Temp 99.3 F 08/13/20 12:00 Pulse 72 08/13/20 15:00 Resp 16 08/13/20 15:00 BP 97/53 08/13/20 15:00 Pulse Ox 97 08/13/20 15:00 Intake & Output 08/12/20 08/13/20 08/13/20 18:59 06:59 18:59 Intake Total 1068 988 756 Output Total 0848 718 2648 Balance -527 338 -689 Weight 95.1 kg 95.1 kg Intake: IV 260 220 90 Cefepime 2 gm In Sodium 100 100 Chloride 0.9% 100 ml @ 25 mls/hr IVPB Q12HR IN[facility] Rx #:[id number] Sodium Chloride 0.45% 1, 160 120 90 000 ml @ 10 mls/hr IV . Q24H IN[facility] Rx#:[id number] Oral 100 Tube Feeding 648 648 486 Other 60 120 180 Output: Urine 2512 122 5175 Other: Voiding Method Indwelling Catheter Indwelling Catheter Indwelling Catheter # Bowel Movements 1 ABP, PAP, CO, CI - Last Documented Arterial Blood Pressure 113/55 Pulmonary Artery Pressure 40/20 Cardiac Output 4.3 Cardiac Index 2.2 - Exam GENERAL: Revealed a 75-year-old female on mechanical ventilation, opens eyes, but does not follow any instructions. Head: atraumatic normocephalic... Tracheostomy is intact. HEENT: PERRLA, EOMI, nonicteric. Tracheostomy is intact. NECK: Supple no neck masses no thyromegaly. HEART: Irregular irregular rhythm. Normal S1 and S2, no S3 gallop. LUNGS: Symmetrical chest expansion, minimal fine crackles at the bases no rhonchi and no wheezes. PSYCH: Could not be assessed. MUSCULOSKELETAL: Left-sided weakness. involving the left upper extremity and left lower extremity. Moves right upper and right lower extremity, spontaneou sly, but does not follow any instructions NEUROLOGICAL: Refer to full neurological examination by neurology on the case. Skin: No rashes Extremities: No clubbing edema or cyanosis - Labs CBC & Chem 7: 08/13/20 04:08 08/13/20 08:56 Labs: Abnormal Lab Results - Last 24 Hours (Table) 08/12/20 08/12/20 08/13/20 Range/Units 17:49 23:57 04:08 WBC 13.7 H (3.8-10.6) k/uL RBC 2.42 L (3.80-5.40) m/uL Hgb 7.4 L (11.4-16.0) gm/dL Hct 23.5 L (34.0-46.0) % RDW 18.1 H (11.5-15.5) % ABG pH (7.35-7.45) ABG HCO3 (21-25) mmol/L ABG Total CO2 (19-24) mmol/L ABG O2 Saturation (94-97) % BUN (7-17) mg/dL Creatinine (0.52-1.04) mg/dL Glucose (74-99) mg/dL POC Glucose (mg/dL) 143 H 160 H (75-99) mg/dL Calcium (8.4-10.2) mg/dL AST (14-36) U/L ALT (4-34) U/L Total Protein (6.3-8.2) g/dL Albumin (3.5-5.0) g/dL 08/13/20 08/13/20 08/13/20 Range/Units 04:08 05:53 06:11 WBC (3.8-10.6) k/uL RBC (3.80-5.40) m/uL Hgb (11.4-16.0) gm/dL Hct (34.0-46.0) % RDW (11.5-15.5) % ABG pH 7.48 H (7.35-7.45) ABG HCO3 30 H (21-25) mmol/L ABG Total CO2 32 H (19-24) mmol/L ABG O2 Saturation 98.1 H (94-97) % BUN 44 H (7-17) mg/dL Creatinine 0.48 L (0.52-1.04) mg/dL Glucose 126 H (74-99) mg/dL POC Glucose (mg/dL) 157 H (75-99) mg/dL Calcium 8.3 L (8.4-10.2) mg/dL AST 144 H (14-36) U/L ALT 660 H (4-34) U/L Total Protein 5.3 L (6.3-8.2) g/dL Albumin 2.7 L (3.5-5.0) g/dL 08/13/20 Range/Units 11:44 WBC (3.8-10.6) k/uL RBC (3.80-5.40) m/uL Hgb (11.4-16.0) gm/dL Hct (34.0-46.0) % RDW (11.5-15.5) % ABG pH (7.35-7.45) ABG HCO3 (21-25) mmol/L ABG Total CO2 (19-24) mmol/L ABG O2 Saturation (94-97) % BUN (7-17) mg/dL Creatinine (0.52-1.04) mg/dL Glucose (74-99) mg/dL POC Glucose (mg/dL) 145 H (75-99) mg/dL Calcium (8.4-10.2) mg/dL AST (14-36) U/L ALT (4-34) U/L Total Protein (6.3-8.2) g/dL Albumin (3.5-5.0) g/dL Microbiology - Last 24 Hours (Table) 08/09/20 11:29 Blood Culture - Preliminary Blood No Growth after 96 hours 08/09/20 11:50 Blood Culture - Preliminary Blood No Growth after 72 hours Assessment and Plan Assessment: Impression:Triple-vessel coronary artery disease , status post CABG postoperative day #17 Failure to wean because of CVA, status post tracheostomy and PEG tube placement postoperative day #7 and status post PEG tube placement. Postoperative acute/subacute right cerebellar infarct. Left sided hemiparesis due to above. Remote History of non-small cell lung cancer and previous lobectomy. History of smoking/ex-smoker. Minimal COPD based on her PFT. Family history of premature coronary artery disease. Hypertension. Peripheral vessel occlusive disease Degenerative joint disease Dyslipidemia. Chronic insomnia. Chronic atrial fibrillation. Recommendation: Continue ventilatory support. Continue tracheostomy care. Continue to hold sedation as much as possible. Continue antibiotics for Klebsiella in the sputum consistent with Klebsiella pneumonia. Continue enteral feeding via PEG tube, patient is at 54 mL an hour with vital high protein. Continue GI and DVT prophylaxis. Continue metoprolol. Continue to monitor mental status. Discussed her condition with discharge planners and from my perspective [facility] would [facility] an option to send the patient in the next couple of days. Patient remains critically ill. Critical care time is over 30 minutes Time with Patient: Greater than 30
[2020-08-13 17:59] LABS: Glucose,Whole Blood 147 mg/dL (75-99)
[2020-08-13] MEDS: SENNOSIDES-DOCUSATE SODIUM 1 EACH TAB PO SCH (20:01)
[2020-08-13] MEDS: LOSARTAN 25 MG TAB PO SCH (20:02)
--- NOTE | 2020-08-13 21:04 | P.PN ---
Progress Note - Text Progress Note Date: 08/13/20 Chief Complaint: Chest pain History of presenting complaint: This is a pleasant 75-year-old patient of Dr. Derrick Neal. Chronic stable medical conditions include COPD, hyperlipidemia, hypertension, ostial arthritis, lung cancer 6 years ago, peripheral artery disease, coronary artery stent, peripheral stents, anxiety depression. Patient presented after she was having central chest pressure at home then went to both the shoulder blades for the arms. Patient became nauseated. No dizziness or lightheadedness. She shortness of breath. No perspiration. Symptoms most lost about 40 minutes she was taken to [facility]. She was similar episode about 2 weeks ago. Transferred down here. Has some lower extremity edema Admitted with unstable angina. underwent cardiac catheterization. Found to have severe triple-vessel coronary artery disease. July 27-underwent coronary bypass 3, ligation of left atrial appendage. Patient received a unit of blood.postsurgery was found to have weakness on the left side.stroke was noted on the computed tomography scan. Including lacunar infarct.patient has been in and out of atrial fibrillation. computed tomography scan of the brain reviewed by Dr. Carrion: Acute bilateral cerebellar ischemic stroke as well as subacute evolving ischemic infarction involving the right MCA/TAZ watershed territory left caudate head ischemic infarction. [place] to be embolic. Today-ICU- ventilator: FiO2 40 and a PEEP of 5. Telemetry-sinus rhythm. 2 feeding at 54 mL an hour. Left-sided neglect. Tracheostomy secretions present. Does open eyes and moves the right side. Following some commands. Review of systems: Unable to obtain Active Medications Acetaminophen (Acetaminophen Tab 325 Mg Tab) 650 mg PEG/G-TUBE Q6HR PRN PRN Reason: Fever and/ or Pain Last Admin: 08/11/20 20:02 Dose: 650 mg Documented by: Albuterol/Ipratropium (Ipratropium-Albuterol 3 Ml Neb) 3 ml INHALATION RT-Q2H PRN PRN Reason: Shortness Of Breath Or Wheezing Last Admin: 08/12/20 15:46 Dose: 3 ml Documented by: Apixaban (Apixaban 5 Mg Tab) 5 mg PEG/G-TUBE BID [facility] Last Admin: 08/13/20 20:01 Dose: 5 mg Documented by: Aspirin (Aspirin 81 Mg) 81 mg PO DAILY [facility] Last Admin: 08/13/20 09:17 Dose: 81 mg Documented by: Benzocaine/Menthol (Benzocaine/Menthol Lozeng 1 Each Lozenge) 1 each MUCOUS MEM Q2H PRN PRN Reason: Sore Throat Bisacodyl (Bisacodyl 10 Mg Supp) 10 mg RECTAL DAILY PRN PRN Reason: Constipation Last Admin: 08/04/20 08:47 Dose: 10 mg Documented by: Chlorhexidine Gluconate (Chlorhexidine Gluconate 15 Ml Cup) 15 ml MUCOUS MEM BID [facility] Last Admin: 08/13/20 20:01 Dose: 15 ml Documented by: Fluconazole (Fluconazole 100 Mg Tab) 100 mg PO DAILY [facility] Last Admin: 08/13/20 09:17 Dose: 100 mg Documented by: Furosemide (Furosemide 10 Mg/Ml 4 Ml Vial) 40 mg IV Q12HR [facility] Last Admin: 08/13/20 20:01 Dose: 40 mg Documented by: Hydralazine HCl (Hydralazine Hcl 20 Mg/Ml 1 Ml Vial) 10 mg IVP Q6HR PRN PRN Reason: Blood Pressure - High Last Admin: 08/12/20 17:53 Dose: 10 mg Documented by: Sodium Chloride (Saline 0.45%) 1,000 mls @ 10 mls/hr IV .Q24H [facility] Last Admin: 08/13/20 12:31 Dose: 10 mls/hr Documented by: Cefepime HCl 2 gm/ Sodium (Chloride) 100 mls @ 25 mls/hr IVPB Q12HR [facility] Last Admin: 08/13/20 20:01 Dose: 25 mls/hr Documented by: Insulin Aspart (Insulin Aspart (Novolog) 100 Unit/Ml Vial) 0 unit SQ Q6HR [facility]; Protocol Last Admin: 08/13/20 18:07 Dose: 1 unit Documented by: Levetiracetam (Levetiracetam 500 Mg Tab) 500 mg PO Q12HR [facility] Last Admin: 08/13/20 20:01 Dose: 500 mg Documented by: Losartan Potassium (Losartan 25 Mg Tab) 25 mg PO HS [facility] Last Admin: 08/13/20 20:02 Dose: 25 mg Documented by: Magnesium Hydroxide (Magnesium Hydroxide 2,400 Mg/10 Ml Cup) 2,400 mg PO BID PRN PRN Reason: Constipation Metoclopramide HCl (Metoclopramide 5 Mg/Ml 2 Ml Vial) 10 mg IVP Q4H PRN PRN Reason: Nausea And Vomiting Metoprolol Tartrate (Metoprolol Tartrate 50 Mg Tab) 100 mg PO BID [facility] Last Admin: 08/13/20 20:02 Dose: 100 mg Documented by: Miscellaneous Information (Magnesium Replacement Protocol 1 Each Misc) 1 each MISCELLANE DAILY PRN; Protocol PRN Reason: Per Protocol Miscellaneous Information (Phosphorus Replacement Protoco 1 Each Misc) 1 each MISCELLANE DAILY PRN; Protocol PRN Reason: Per Protocol Miscellaneous Information (Potassium Replacement Protocol 1 Each Misc) 1 each MISCELLANE DAILY PRN; Protocol PRN Reason: Per Protocol Multi-Ingred Cream/Lotion/Oil/Oint (Artificial Tears Ointment 3.5 Gm Tube) 1 applic BOTH EYES Q4H [facility] Last Admin: 08/13/20 20:00 Dose: 1 applic Documented by: Ondansetron HCl (Ondansetron 4 Mg/2 Ml Vial) 4 mg IVP Q6HR PRN PRN Reason: Nausea And Vomiting Last Admin: 08/09/20 03:43 Dose: 4 mg Documented by: Pantoprazole Sodium (Pantoprazole 40 Mg/10 Ml Vial) 40 mg IVP DAILY [facility] Last Admin: 08/13/20 09:17 Dose: 40 mg Documented by: Senna/Docusate Sodium (Sennosides-Docusate Sodium 1 Each Tab) 2 each PO HS [facility] Last Admin: 08/13/20 20:01 Dose: 2 each Documented by: Sertraline HCl (Sertraline 100 Mg Tab) 100 mg PO DAILY [facility] Last Admin: 08/13/20 09:17 Dose: 100 mg Documented by: Sodium Chloride (Sodium Chloride 0.9% Flush 10 Ml Syringe) 10 ml IV BID [facility] Last Admin: 08/13/20 20:02 Dose: 10 ml Documented by: Past medical history to include: CHF, COPD, hyperlipidemia, hypertension, coronary artery disease with stent, osteoporosis, lung cancer 6 years ago, peripheral arterial disease, anxiety depression Social history: Lives with her son. Smoked a pack a day since the teenage years. Stop in 2011. Some alcohol in the past Physical examination: VITAL SIGNS: 99.1, 70, 16, 161 with 67, 95% on the ventilator GENERAL: Laying in bed, intubated, does open eyes.. EYES: Pupils equal. Conjunctiva normal. HEENT: External appearance of nose and ears normal, oral cavity endotracheal tube. NECK: JVD unable to assess; masses not palpable. HEART: First and second heart sounds are normal; no edema. LUNGS: Respiratory rate increased; decreased breath sounds. ABDOMEN: Soft, nontender, liver spleen not palpable, no masses palpable. Da Silva catheter NEUROLOGICAL: Some movement of the right arm right leg. Left-sided neglect PSYCH: Unable to assess MUSCULOSKELETAL: Evidence of OA Investigations: August 13: WBC 13.7 hemoglobin 7.4 potassium 3.8 creatinine 0.48 AST 144 ALT 660 August 12: WBC 17.5 hemoglobin 8 platelets 550 AST 27 ALT 1022 creatinine 0.5 August 11: Potassium 3.6 creatinine 0.5 for AST 456 ALT 1159 August 10: WBC 17.7 hemoglobin 7.9 platelets 617 potassium 3.5 crit 0.58 AST 26826 ALT 1971 Computed tomography scan of the brain: Age related changes but chronic small vessel disease. July 22: Potassium 4.1 creatinine 0.97 proBNP 1270 Cardiac cxifphnvyjczzep-diqwqm-loiccq disease 2-D echocardiogram-moderate concentric LVH, EF 50-55% hypokinetic galicia Troponin I 0.018, 0.012 Coronavirus [PCR]-not detected EKG tracing personally reviewed by me-normal sinus rhythm, PVC Assessment and plan: -Coronary artery bypass [id number] July 27. On Plavix, Lopressor, Zetia -Acute postprocedure blood loss anemia, as expected from surgery, received 1 unit of blood -Hypotensive shock from volume loss patient was on levo -improved -Likely ischemic hepatitis. improving. -Unstable angina, POA -Triple-vessel coronary artery disease -. Plavix, Lopressor, Zetia -Acute on chronic congestive heart diastolic dysfunction EF 50-55% received IV Lasix. Stabilized. Follow clinically -COPD in a previous smoker, on DuoNeb -Hyperlipidemia, continue Lipitor-currently held because of increased LFTs -Essential hypertension, follow closely -Primary osteoarthritis, -History of lung cancer 6 years ago -Peripheral arterial disease with stenting, on aspirin and Plavix -Anxiety depression otherwise specified-on Zoloft -Chronic insomnia continue with melatonin -Paroxysmal atrial fibrillation.in and out of rapid atrial fibrillation - amiodarone discontinued because of LFTs -Acute bilateral cerebellar ischemic stroke as well as subacute evolving ischemic infarction involving the right MCA/TAZ watershed territory left caudate head ischemic infarction. [place] to be embolic./post surgical-. Left-sided paresis. Left-sided neglect.
[2020-08-13] MEDS: ONDANSETRON 4 MG/2 ML VIAL IVP PRN (22:01)
[2020-08-13 23:57] LABS: Glucose,Whole Blood 131 mg/dL (75-99)
[2020-08-14] MEDS: INSULIN ASPART (NovoLOG) 100 UNIT/ML VIAL SQ SCH ×3 (00:10→12:08)
[2020-08-14] MEDS: ARTIFICIAL TEARS OINTMENT 3.5 GM TUBE BOTH EYES SCH ×4 (00:10→12:08)
[2020-08-14 04:21] LABS: Anisocytosis Slight; Basophils # (A) 0.1 k/uL (0-0.2); Basophils % (A) 0 %; Eosinophils # (A) 0.6 k/uL (0-0.7); Eosinophils % (A) 4 %; HCT 26.7 % (34.0-46.0); HGB 8.2 gm/dL (11.4-16.0); Hypochromasia Marked; Lymphocytes # (A) 1.8 k/uL (1.0-4.8); Lymphocytes % (A) 12 %; MCH 30.4 pg (25.0-35.0); MCHC 30.8 g/dL (31.0-37.0); MCV 98.6 fL (80.0-100.0); Macrocytosis Slight; Mean Platelet Volume 8.5; Monocytes # (A) 0.9 k/uL (0-1.0); Monocytes % (A) 6 %; Neutrophils # (A) 11.2 k/uL (1.3-7.7); Neutrophils % (A) 76 %; Platelet Count 498 k/uL (150-450); Poikilocytosis Slight; RBC 2.71 m/uL (3.80-5.40); RDW 18.1 % (11.5-15.5); WBC 14.7 k/uL (3.8-10.6)
--- NOTE | 2020-08-14 04:40 | PN ---
PROGRESS NOTE DATE OF SERVICE: 08/13/2020 REASON FOR FOLLOWUP: Leukocytosis and fever. INTERVAL HISTORY: Patient is currently afebrile. The patient is hemodynamically stable, not on any pressor support. FiO2 is currently stable. No significant purulent secretions in the ET or diarrhea reported by the nursing staff. PHYSICAL EXAMINATION: Blood pressure 160/77, pulse of 72, temperature 98.5. She is 95% on 40% FiO2. General description is an elderly female lying in bed in no distress. Respiratory system: Unlabored breathing, decreased breath sounds at bases. No wheeze. HEART: S1, S2. Regular rate and rhythm. ABDOMEN: Soft, no tenderness. LAB: Hemoglobin 10.4, white count 13.7, BUN of 44, creatinine 0.48. DIAGNOSTIC IMPRESSION AND PLAN: Patient with elevated white count, multifactorial in this patient possible component of pneumonia. Sputum has been Klebsiella plus minus oropharyngeal candidiasis. This patient is covered with cefepime and Diflucan. White count showing a downward trend to continue while monitoring clinical course closely. Continue supportive care. MMODL / IJN: [id number] /
[2020-08-14 04:42] LABS: ALT 551 U/L (4-34); AST 125 U/L (14-36); African American GFR (CKD) >90 (>60 ml/min/1.73 sqM); Albumin 3.1 g/dL (3.5-5.0); Alkaline Phosphatase 103 U/L (38-126); Anion Gap 8 mmol/L; Blood Urea Nitrogen 44 mg/dL (7-17); Calcium 8.6 mg/dL (8.4-10.2); Carbon Dioxide 31 mmol/L (22-30); Chloride 105 mmol/L (98-107); Glucose 122 mg/dL (74-99); Non-African American GFR(CKD) >90 (>60 ml/min/1.73 sqM); Potassium 3.8 mmol/L (3.5-5.1); Sodium 144 mmol/L (137-145); Total Bilirubin 0.9 mg/dL (0.2-1.3); Total Protein 5.7 g/dL (6.3-8.2)
[2020-08-14 05:39] LABS: ABG HCO3 34 mmol/L (21-25); ABG Oxygen Saturation 96.2 % (94-97); ABG PCO2 44 mmHg (35-45); ABG PO2 72 mmHg (83-108); ABG TCO2 36 mmol/L (19-24); Allen Test Performed? Yes
[2020-08-14 05:58] LABS: Glucose,Whole Blood 132 mg/dL (75-99)
[2020-08-14] MEDS ORDERED: POTASSIUM BICARBONATE/CIT AC 20 MEQ TABLET.EFF NG-TUBE SCH (06:00)
[2020-08-14] MEDS: IPRATROPIUM-ALBUTEROL 3 ML NEB INHALATION PRN ×2 (07:40→11:32)
[2020-08-14] MEDS: levETIRAcetam 500 MG TAB PO SCH (08:39)
[2020-08-14] MEDS: APIXABAN 5 MG TAB PEG/G-TUBE SCH (08:39)
[2020-08-14] MEDS: SERTRALINE 100 MG TAB PO SCH (08:39)
[2020-08-14] MEDS: FLUCONAZOLE 100 MG TAB PO SCH (08:39)
[2020-08-14] MEDS: METOPROLOL TARTRATE 50 MG TAB PO SCH (08:39)
[2020-08-14] MEDS: CHLORHEXIDINE GLUCONATE 15 ML CUP MUCOUS MEM SCH (08:40)
[2020-08-14] MEDS: FUROSEMIDE 10 MG/ML 4 ML VIAL IV SCH (08:40)
[2020-08-14] MEDS: CEFEPIME 2 GM in SODIUM CHLORIDE 0.9% 100 ML IVPB SCH (08:40)
[2020-08-14] MEDS: ASPIRIN 81 MG PO SCH (08:40)
[2020-08-14] MEDS: PANTOPRAZOLE 40 MG/10 ML VIAL IVP SCH (08:40)
[2020-08-14 09:01] VITALS: TEMP 99
--- NOTE | 2020-08-14 09:10 | P.PN ---
Subjective Progress Note Date: 08/14/20 Principal diagnosis: Triple-vessel coronary artery disease, unstable angina. Past medical history significant for coronary artery disease with previous myocardial infarction and stent placement, peripheral arterial disease with lower extremity stenting, lung cancer status post right lower lobectomy in 2011, hypertension, hyperlipidemia, COPD with previous tobacco dependence, anxiety/depression, family history of premature coronary artery disease with 2 of her sons having had coronary artery bypass grafting surgery, significant plaque formation more than 75% stenosis at the origins of both internal and external carotid arteries bilaterally on CTA. POD #18 coronary artery bypass grafting 3 vessels, left internal mammary artery to the left anterior descending artery, a reverse greater saphenous vein graft to the obtuse marginal artery, a reverse greater saphenous vein graft to the posterior descending artery, endoscopic harvesting of the right greater saphenous vein, ligation of the left atrial appendage using a 35 mm AtriClip, epi-aortic ultrasound and intraoperative transesophageal echocardiogram. POD #7 tracheostomy tube placement #[address] Alan. POD #7 EGD with her cutaneous endoscopic gastrostomy tube placement by Dr. Chavarria. Postoperative acute blood loss anemia, expected given hemodilution and cardiopulmonary bypass pump. Postoperative right acute/subacute cerebellar infarct on brain CT, unexpected, although possible complication of any open heart surgery, especially given patient's known history of significant arterial disease. Prolonged mechanical ventilation, unexpected, secondary to acute stroke. Paroxysmal atrial fibrillation, known common occurrence after open heart surgery. The patient was seen in follow-up today 08/24/2020 at bedside in the intensive care unit. Currently she is laying in bed, opens up her eyes with verbal stimuli but is not following any verbal commands at this time. She does move her right arm at times and right leg. No movement to her left lower extremity or left upper extremity noted this morning. She continues to withdrawal from painful stimuli to all 4 extremities and grimaces. She remains with midline trachea in place, with mechanical ventilators support. Current mechanical ventilator settings are assist control 16, VC +450/0.80, FiO2 40% and PEEP of 5. ABG results this morning show a pH of 7.50, pCO2 44, pO2 72, HCO3 34, oxygen saturation 96.2 and base excess 11.0. Her T-max temperature in the last 24 hours was 99.5F, she remains on antibiotic coverage with cefepime drainage by infectious disease. Her last sputum culture on 08/08/2020 was positive for Klebsiella oxytoca. Bedside telemetry showing sinus bradycardia heart rate 59 BPM. Left upper quadrant abdominal PEG tube in place with continuous tube feedings vital high-protein infusing at goal rate of 54 mL per hour with automatic water flushes 30 mL every 4 hours. She was started on Lasix 40 mg IV every 12 hours yesterday by pulmonary/critical care medicine. Da Silva cath remains in place for accurate I's and O's. Urine output has been adequate in the last 8 hours was 625 mL output. The neonatal social worker met with the patient's son yesterday Christian and the family wishes to have the mother transferred to a [facility] for further rehabilitation. Laboratory results this morning show a WBC count 14.7, hemoglobin 8.2, platelets 498, BUN 44, creatinine 0.52. Liver enzymes are continuing to trend down with her AST 125 and ALT 551 this morning. Her night nurse reports that she did have a bowel movement. Objective - Vital Signs Vital signs: Vital Signs Temp 99.5 F 08/14/20 04:00 Pulse 68 08/14/20 08:03 Resp 16 08/14/20 07:00 BP 105/54 08/14/20 07:00 Pulse Ox 96 08/14/20 07:00 Intake & Output 08/13/20 08/14/20 08/14/20 18:59 06:59 18:59 Intake Total 1042 924 94 Output Total 1645 1575 40 Balance -603 651 54 Weight 95.1 kg 91.5 kg Intake: IV 130 210 10 Cefepime 2 gm In Sodium 100 Chloride 0.9% 100 ml @ 25 mls/hr IVPB Q12HR [facility] Rx #:[id number] Sodium Chloride 0.45% 1, 130 110 10 000 ml @ 10 mls/hr IV . Q24H [facility] Rx#:[id number] Tube Feeding 702 594 54 Other 210 120 30 Output: Urine 1645 1575 40 Other: Voiding Method Indwelling Catheter Indwelling Catheter # Bowel Movements 1 1 ABP, PAP, CO, CI - Last Documented Arterial Blood Pressure 113/55 Pulmonary Artery Pressure 40/20 Cardiac Output 4.3 Cardiac Index 2.2 - Exam The patient remains with mechanical ventilator support, tracheostomy tube midline and in place. Her sedation continues to be on hold. She does move her right arm at times and right leg. No movement to her left lower extremity or left upper extremity noted this morning. She continues to withdrawal from painful stimuli to all 4 extremities and grimaces - Constitutional General appearance: Present: no acute distress, obese - EENT Eyes: Present: PERRLA, normal appearance. Absent: scleral icterus - Neck Details: Neck is supple, no JVD. Neck: Absent: lymphadenopathy - Respiratory Details: Lung sounds with few scattered rhonchi throughout, diminished bilateral bases. No wheezes, or crackles. Respirations are symmetrical and nonlabored with mechanical ventilator support. Tracheostomy remains midline and intact. Oxygen saturations are 95% with mechanical ventilator support. ABG results this morning show a pH of 7.50, pCO2 44, pO2 72, HCO3 34, oxygen saturation 96.2 and base excess 11.0. - Cardiovascular Details: Regular rhythm and rate. S1 and S2 present, negative for S3, gallop or murmur. Bedside telemetry showing sinus bradycardia heart rate 59 BPM. Sternum is stable. Heart hugger is in place. Knee-high DEBI hose and sequential compression devices in place to her bilateral lower extremities. +1 generalized edema. Left arm PICC line in place and functioning. - Gastrointestinal Gastrointestinal Comment(s): Abdomen is soft, nontender and nondistended. Active bowel sounds present in all 4 quadrants. No guarding or rigidity. No organomegaly appreciated. Left upper quadrant abdomen PEG tube in place with continuous tube feedings infusing with vital high-protein at 54 mL per hour and 30 mL every 4 hours automatic water flushes. - Genitourinary Genitourinary Comment(s): Da Silva catheter for accurate I&O. Draining clear yellow urine with 625 mL output in the last 8 hours. - Integumentary Integumentary Comment(s): Skin is warm and dry. No clubbing or cyanosis is present. Midline sternal incision is clean, dry and approximated. No drainage or redness is present. Right lower extremity EVH site clean, dry and approximated. No drainage or redness is present. - Neurologic Neurologic Comment(s): Opening up her eyes with verbal stimuli. Not following any verbal commands at this time. She is moving her right upper extremity today but not following any verbal commands. She is moving her right lower extremity. Left upper extremity flaccid and no movement noted to her left lower extremity today. She does grimace with painful stimuli and does withdraw from painful stimuli to all 4 extremities. - Musculoskeletal Musculoskeletal: Present: generalized weakness - Psychiatric Psychiatric Comment(s): Unable to accurately assess her orientation at this time as the patient remains with a tracheostomy tube in place with mechanical ventilator support. - Allied health notes Allied health notes reviewed: nursing - Labs CBC & Chem 7: 08/14/20 03:29 08/14/20 03:29 Labs: Abnormal Lab Results - Last 24 Hours (Table) 08/13/20 08/13/20 08/13/20 Range/Units 11:44 17:58 23:55 WBC (3.8-10.6) k/uL RBC (3.80-5.40) m/uL Hgb (11.4-16.0) gm/dL Hct (34.0-46.0) % MCHC (31.0-37.0) g/dL RDW (11.5-15.5) % Plt Count (150-450) k/uL Neutrophils # (1.3-7.7) k/uL ABG pH (7.35-7.45) ABG pO2 (83-108) mmHg ABG HCO3 (21-25) mmol/L ABG Total CO2 (19-24) mmol/L Carbon Dioxide (22-30) mmol/L BUN (7-17) mg/dL Glucose (74-99) mg/dL POC Glucose (mg/dL) 145 H 147 H 131 H (75-99) mg/dL AST (14-36) U/L ALT (4-34) U/L Total Protein (6.3-8.2) g/dL Albumin (3.5-5.0) g/dL 08/14/20 08/14/20 08/14/20 Range/Units 03:29 03:29 05:30 WBC 14.7 H (3.8-10.6) k/uL RBC 2.71 L (3.80-5.40) m/uL Hgb 8.2 L (11.4-16.0) gm/dL Hct 26.7 L (34.0-46.0) % MCHC 30.8 L (31.0-37.0) g/dL RDW 18.1 H (11.5-15.5) % Plt Count 498 H (150-450) k/uL Neutrophils # 11.2 H (1.3-7.7) k/uL ABG pH 7.50 H (7.35-7.45) ABG pO2 72 L (83-108) mmHg ABG HCO3 34 H (21-25) mmol/L ABG Total CO2 36 H (19-24) mmol/L Carbon Dioxide 31 H (22-30) mmol/L BUN 44 H (7-17) mg/dL Glucose 122 H (74-99) mg/dL POC Glucose (mg/dL) (75-99) mg/dL AST 125 H (14-36) U/L ALT 551 H (4-34) U/L Total Protein 5.7 L (6.3-8.2) g/dL Albumin 3.1 L (3.5-5.0) g/dL 08/14/20 Range/Units 05:56 WBC (3.8-10.6) k/uL RBC (3.80-5.40) m/uL Hgb (11.4-16.0) gm/dL Hct (34.0-46.0) % MCHC (31.0-37.0) g/dL RDW (11.5-15.5) % Plt Count (150-450) k/uL Neutrophils # (1.3-7.7) k/uL ABG pH (7.35-7.45) ABG pO2 (83-108) mmHg ABG HCO3 (21-25) mmol/L ABG Total CO2 (19-24) mmol/L Carbon Dioxide (22-30) mmol/L BUN (7-17) mg/dL Glucose (74-99) mg/dL POC Glucose (mg/dL) 132 H (75-99) mg/dL AST (14-36) U/L ALT (4-34) U/L Total Protein (6.3-8.2) g/dL Albumin (3.5-5.0) g/dL Microbiology - Last 24 Hours (Table) 08/09/20 11:50 Blood Culture - Preliminary Blood No Growth after 96 hours 08/09/20 11:29 Blood Culture - Preliminary Blood No Growth after 96 hours - Imaging and Cardiology Chest x-ray: report reviewed, image reviewed Assessment and Plan Assessment: 1. Triple-vessel coronary artery disease, unstable angina, status post three- vessel CABG 2. History of coronary artery disease with previous myocardial infarction and stent placement 3. Peripheral arterial disease with lower extremity stenting 4. History of lung cancer status post right lower lobectomy 5. Hypertension, currently hypotensive requiring IV pressors 6. Hyperlipidemia, treated, cholesterol 152, LDL 85 7. COPD with previous tobacco dependence, preoperative FEV1 82% of predicted 8. Anxiety/depression 9. Family history of premature coronary artery disease 10. Postoperative acute blood loss anemia, expected, status post 1 unit packed red blood cell transfusion 11. Postoperative acute/subacute right cerebellar infarct, unexpected, with evidence of previous right parietal stroke 12. Bilateral internal carotid artery disease greater than 75% present on CTA 13. Prolonged mechanical ventilation, unexpected acute hypoxemic respiratory failure because of her recent CVA, status post tracheostomy placement 14. Paroxysmal atrial fibrillation, status post ligation of the left atrial appendage, currently sinus rhythm 15. Leukocytosis, final sputum culture results shows Klebsiella oxytoca and Nick albicans 16. Malnutrition, status post percutaneous endoscopic gastrostomy tube placement 17. Elevated transaminase enzymes, likely secondary to amiodarone and Lipitor which are currently on hold, liver enzymes continue to trend down, AST is 125 today and ALT is 551 Plan: 1. Continue aspirin, and beta tran. Continue Metoprolol tartrate 100 per G- tube twice. 2. Lasix 40 mg IV every 12 hours managed by pulmonary for/critical care medicine. 3. Mechanical ventilator management per pulmonology/critical care management. Bronchodilators per pulmonology/critical care management. 4. The patient son Christian was updated per phone yesterday and he also met with neonatal social worker to discuss placement to long-term acute care. 5. Continue to monitor daily labs and chest x-rays. Electrolyte replacement per protocol. 6. GI and DVT prophylaxis. 7. Continue to hold amiodarone and statin due to her elevated liver enzymes. Liver enzymes continue to trend down, AST is 125 and ALT is 551 today. We will restart her statin once her liver enzymes have normalized. 8. Continue Da Silva catheter and record accurate I's and O's. The catheter was exchanged on 08/08/2020. 9. Pain control with current when necessary orders. 10. Strict accurate intake and output. Daily weights 11. Final result of sputum culture showing Klebsiella oxytoca from 08/08/2020, currently on cefepime for antibiotic treatment. Also on Diflucan for positive nick in her sputum culture on 08/05/2020. T-max temperature in the last 24 hours 99.5 F. 12. Antibiotic management per infectious disease recommendations. 13. Continue Eliquis 5 mg per PEG tube twice a day for anticoagulation. 14. building service worker working with family to discuss transfer to long-term acute care facility. 15. Anticipate transfer to long-term acute care center in the next 24-48 hours. 16. More recommendations to follow based on patient's clinical course. Time with Patient: Greater than 30
[2020-08-14 10:35] VITALS: RESP 16
--- NOTE | 2020-08-14 10:54 | XR ---
EXAMINATION TYPE: XR chest 1V portable DATE OF EXAM: 08/14/2020 COMPARISON: 08/13/2020 HISTORY: Shortness of breath TECHNIQUE: Single frontal view of the chest is obtained. FINDINGS: Left-sided central line tracheostomy tube noted. Catheter or stimulator wire is seen overl cande the thoracic region. Postoperative change and cardiomegaly. Diffuse interstitial pattern with bi lateral infiltrate and pleural effusion. IMPRESSION: Diffuse pleural-parenchymal changes are stable. Diffuse pneumonia versus edema.
--- NOTE | 2020-08-14 10:59 | P.DS ---
Providers Date of admission: 07/21/20 08:17 Expected date of discharge: 08/14/20 Attending physician: Yamil Alan Consults: 07/21/20 08:16 Consult Physician Routine Consulting Provider: Joselo Arriaga Consult Reason/Comments: chest pain, CHF Do you want consulting provider notified?: Yes 07/22/20 14:03 Consult Physician Routine Consulting Provider: Anthony Moffett Consult Reason/Comments: cabg Do you want consulting provider notified?: Yes 07/23/20 07:44 Consult Physician Routine Consulting Provider: Rafael Turner Consult Reason/Comments: preop cabg; hx of lung ca w/ lobectomy Do you want consulting provider notified?: Yes 07/26/20 15:23 Consult to Anesthesia Routine Consulting Provider: Anesthesia,Services Consult Reason/Comments: Cardiac Surgery Pre-Op 07/27/20 14:15 Consult Physician Routine Consulting Provider: Navi Shahid Consult Reason/Comments: med mgmt Do you want consulting provider notified?: Already Contacted 07/28/20 07:50 Consult Physician Routine Consulting Provider: Yamil Luong Consult Reason/Comments: acute/subacute right cerebellar cva post cabg Do you want consulting provider notified?: Yes 08/03/20 12:37 Consult Physician Routine Consulting Provider: Og Chavarria Consult Reason/Comments: peg tube placement Do you want consulting provider notified?: Already Contacted 08/08/20 08:15 Consult Physician Routine Consulting Provider: Emilia Neal Consult Reason/Comments: Leukocytosis Do you want consulting provider notified?: Yes 08/09/20 11:31 Consult Physician Routine Consulting Provider: Yamil Luong Consult Reason/Comments: CVA Do you want consulting provider notified?: Yes Primary care physician: Derrick Neal Hospital Course: FINAL DIAGNOSIS: 1. Triple-vessel coronary artery disease, unstable angina 2. History of coronary artery disease with previous myocardial infarction and stent placement 3. Peripheral arterial disease with lower extremity stenting 4. Lung cancer status post right lower lobectomy in 2011 5. Hypertension 6. Hyperlipidemia, untreated, cholesterol 152, LDL 85 7. COPD with previous tobacco dependence, preoperative FEV1 82% of predicted 8. Anxiety/depression 9. Family history of premature coronary artery disease 10. Postoperative acute blood loss anemia, expected, status post transfusion 11. Postoperative acute/subacute right cerebellar infarct, unexpected, with evidence of previous right parietal stroke 12. Bilateral internal carotid artery disease greater than 75% per CTA 13. Prolonged mechanical ventilation, unexpected acute hypoxemic respiratory failure due to stroke 14. Paroxysmal atrial fibrillation 15. Leukocytosis, sputum culture positive for Klebsiella and Lali 16. Malnutrition 17. Transaminitis, likely secondary to amiodarone and Lipitor PRINCIPAL PROCEDURE: 1. Coronary artery bypass grafting 3 vessels, left internal mammary artery to the left anterior descending artery, reverse greater saphenous vein graft to the obtuse marginal artery, reverse greater saphenous vein graft to the posterior descending artery 2. Endoscopic harvesting of the right greater saphenous vein 3. Ligation of the left atrial appendage using a 35 mm AtriClip 4. Epi-aortic ultrasound and intraoperative transesophageal echocardiogram 5. Tracheostomy placement with #7 Bivona, PEG tube placement HISTORY OF PRESENT ILLNESS: This is a 75-year-old female patient who follows on an outpatient basis with Dr. Derrick Neal. She presented to [facility] with complaints of chest pain at rest, shortness of breath, as well as nausea. Her BNP was elevated, troponins were mildly elevated with max troponin 0.041, EKG demonstrated sinus rhythm with nonspecific STT wave abnormalities without evidence of acute ischemia.. She was transferred to [facility] for further evaluation and treatment. Transthoracic echocardiogram was completed demonstrating moderate concentric left ventricular hypertrophy, EF 50-55%, basal inferior and inferoseptal LV wall motion hypokinesis, mild enlargement of the right ventricle, and no significant valvular pathology. She was recommended to undergo heart catheterization which demonstrated proximal LAD stenosis 85%, mid LAD stenosis 90%, first obtuse marginal branch of the circumflex coronary artery 70-80%, proximal and mid right coronary artery in-stent restenosis 99% with dif fuse intimal disease up to 90% stenosis prior to the bifurcation into the PDA and PLB. Consultation was placed to cardiothoracic surgery. She was recommended to undergo coronary artery bypass surgery. The usual perioperative course was discussed in detail with the patient and her family, all risks and benefits were explained, all questions were answered, and consent was obtained to proceed with surgery. The patient was kept inpatient due to the nature of her disease process. HOSPITAL COURSE: The patient was brought to the preoperative area 07/27/20, prepared in the usual fashion, and subsequently taken to the operating room where Dr. Alan performed three-vessel CABG. Upon completion of surgery the patient was transferred to the cardiovascular intensive care unit where she was recovered and monitored hemodynamically. With weaning trial for extubation the patient was noted to have left-sided weakness, she was sent for stat CT and was discovered to have acute/subacute cerebellar infarct. She continued to have a andrez recovery including prolonged mechanical ventilation requiring tracheostomy and PEG tube placement, as well as paroxysmal atrial fibrillation, leukocytosis, and transaminitis. Appropriate consultations were sought, all lines, tubes, and drips were discontinued when appropriate. Her oxygen was titrated down, physical and occupational therapy completed evaluation, she was tolerating tube feeding, and she was ready to be discharged to [facility] long-term acute care on postoperative day #18. Her sons were updated daily. She was discharged with amiodarone and Lipitor on hold secondary to elevated liver enzymes which were trending downward. Discharge instructions provided to [facility], with expectation of follow-up appointments to be made upon discharge from acute care. COMPLICATIONS: The patient experienced postoperative cerebellar infarct, blood loss anemia, prolonged mechanical ventilation, paroxysmal atrial fibrillation, and leukocytosis all which were treated accordingly. Patient Condition at Discharge: Fair Plan - Discharge Summary Discharge Rx Participant: Yes New Discharge Prescriptions: New Aspirin 81 mg PO DAILY chew Fluconazole [Diflucan] 100 mg PO DAILY tab bisacodyL [Dulcolax] 10 mg RECTAL DAILY PRN supp PRN Reason: Constipation Ipratropium-Albuterol Nebulize [Duoneb 0.5 mg-3 mg/3 ml Soln] 3 ml INHALATION RT-Q2H PRN ml PRN Reason: Shortness Of Breath Or Wheezing Apixaban [Eliquis] 5 mg PEG/G-TUBE BID tab levETIRAcetam [Keppra] 500 mg PO Q12HR tab Furosemide [Lasix] 40 mg PO BID 7 Days tablet Metoprolol Tartrate [Lopressor] 100 mg PO BID tab Artificial Tears Ointment [Lubrifresh Pm Ointment] 1 applic BOTH EYES Q4H applic Cefepime [Maxipime] 2 gm IVPB Q12HR vial Magnesium Hydroxide [Milk of Magnesia Concentrate] 2,400 mg PO BID PRN ml PRN Reason: Constipation INSULIN ASPART (NovoLOG) [NovoLOG (formulary)] 0 unit SQ Q6HR vial Chlorhexidine Gluconate [Peridex] 15 ml MUCOUS MEM BID ml Potassium Chloride 20 meq PO DAILY 7 Days ml Sennosides-Docusate Sodium [Senokot-S] 2 each PO HS tab Acetaminophen Tab [Tylenol] 650 mg PEG/G-TUBE Q6HR PRN tab PRN Reason: Fever And/ Or Pain Continue Sertraline [Zoloft] 100 mg PO HS Losartan [Cozaar] 25 mg PO HS Discontinued HYDROcodone/APAP 5-325MG [[place] 5-325] 1 tab PO TID Ezetimibe [Zetia] 10 mg PO HS Clopidogrel [Plavix] 75 mg PO HS cilostazoL [Pletal] 100 mg PO BID Cholecalciferol [Vitamin D3 (25 Mcg = 1000 Iu)] 1,000 unit PO HS Atorvastatin [Lipitor] 80 mg PO HS Aspirin EC [Ecotrin Low Dose] 81 mg PO HS ALPRAZolam [Xanax] 0.25 mg PO BID Carvedilol [Coreg] 12.5 mg PO BID traZODone HCL 100 mg PO HS Gabapentin [Neurontin] 300 mg PO BID Cyclobenzaprine [Flexeril] 10 mg PO BID PRN PRN Reason: Muscle Spasm amLODIPine [Norvasc] 5 mg PO DAILY Ibuprofen [Motrin] 800 mg PO Q12H PRN PRN Reason: Pain Discharge Medication List Sertraline [Zoloft] 100 mg PO HS 04/02/18 [History] Losartan [Cozaar] 25 mg PO HS 03/19/19 [History] Acetaminophen Tab [Tylenol] 650 mg PEG/G-TUBE Q6HR PRN tab 08/14/20 [Rx] Apixaban [Eliquis] 5 mg PEG/G-TUBE BID tab 08/14/20 [Rx] Artificial Tears Ointment [Lubrifresh Pm Ointment] 1 applic BOTH EYES Q4H applic 08/14/20 [Rx] Aspirin 81 mg PO DAILY chew 08/14/20 [Rx] Cefepime [Maxipime] 2 gm IVPB Q12HR vial 08/14/20 [Rx] Chlorhexidine Gluconate [Peridex] 15 ml MUCOUS MEM BID ml 08/14/20 [Rx] Fluconazole [Diflucan] 100 mg PO DAILY tab 08/14/20 [Rx] Furosemide [Lasix] 40 mg PO BID 7 Days tablet 08/14/20 [Rx] INSULIN ASPART (NovoLOG) [NovoLOG (formulary)] 0 unit SQ Q6HR vial 08/14/20 [Rx] Ipratropium-Albuterol Nebulize [Duoneb 0.5 mg-3 mg/3 ml Soln] 3 ml INHALATION RT-Q2H PRN ml 08/14/20 [Rx] Magnesium Hydroxide [Milk of Magnesia Concentrate] 2,400 mg PO BID PRN ml 08/14/20 [Rx] Metoprolol Tartrate [Lopressor] 100 mg PO BID tab 08/14/20 [Rx] Potassium Chloride 20 meq PO DAILY 7 Days ml 08/14/20 [Rx] Sennosides-Docusate Sodium [Senokot-S] 2 each PO HS tab 08/14/20 [Rx] bisacodyL [Dulcolax] 10 mg RECTAL DAILY PRN supp 08/14/20 [Rx] levETIRAcetam [Keppra] 500 mg PO Q12HR tab 08/14/20 [Rx] Follow up Appointment(s)/Referral(s): Rafael Turner MD [STAFF PHYSICIAN] - 1 Week ((Pigskin Trimmer) Please call for appointment should the patient be discharged from [facility]) Brennan Larsen MD [STAFF PHYSICIAN] - 1 Week ((Manager [employer]) Please call for appointment should the patient be discharged from [facility]) Derrick Neal MD [Primary Care Provider] - 1 Week ((Primary Care Physician) Please call for appointment should the patient be discharged from [facility]) Yamil Alan MD [STAFF PHYSICIAN] - 1 Week ((Cardiothoracic Surgeon) Please call for appointment should the patient be discharged from [facility]) Activity/Diet/Wound Care/Special Instructions: DISCHARGE INSTRUCTIONS: 1. No driving for 4 weeks, or until physician gives their ok. 2. The patient should sleep in their own bed, no medical bed needed. 3. Stairs are not an issue. If the bedroom is upstairs, it is advised that the patient go up at night and down in the morning for the first week. Go slowly, using handrail and take 1 step at a time. 4. DEBI hose are to be worn for 30 days or until physician discontinues. 5. Heart hugger is to be worn 100% of the time until physician discontinues.(except when showering) 6. No lifting, pushing, or pulling more than 10 pounds for 12 weeks. The physician will advise of any restriction changes. 7. The patient is expected to continue the prescribed walking program. 8. Continue pain control per as needed orders. 9. Continue with incentive spirometry and splinting/heart hugger until other bartlett directed by the physician. 10. Must shower daily using liquid antibacterial soap and a separate white washcloth for each individual incision. 11. Routine sternal incision care. No powders, lotions, ointments on incisions. No dressings are necessary on incisions unless they are draining. Dermabond tape is to remain on sternal incision until surgeon follow-up. 12. Please call surgeon/DIRECTOR MARKETING [employer]NALYTICS for temp greater than 101 F or purulent drainage from incisions. 13. A Red armband has been placed on the patient. It should be worn for 30 days post surgery and will be removed by the cardiac surgeons. If an ER visit is necessary, please make sure the number on the Red armband is called. [facility] TO PROVIDE: RN SKILLED HOME CARE SERVICES FOR POST-OP SURGICAL PATIENTS WITH THE FOLLOWING: Coronary Artery Bypass Surgery (CABG) RN TO CONTINUE EDUCATION FROM ``ROAD TO A HEALTH HEART PATIENT EDUCATION MANUAL (GIVEN TO PATIENT IN THE HOSPITAL) MEDICATION RECONCILIATION WITH EDUCATION NEEDED EMPHASIZE IMPORTANCE OF WEARING BREAST SUPPORT/HEART HUGGER ENCOURAGE UTILIZATION OF LOWER EXTREMITY COMPRESSION STOCKINGS/DEBI HOSE and ELEVATE LEGS ABOVE LEVEL OF HEART WHILE AT REST. ENCOURAGE INCREASING ACTIVITY TOLERATES LABORATORY: CBC, CMP TO BE DRAWN PER FACILITY PROTOCOL. For any questions or concerns please call hanger off Lana @ or Don @ Discharge Disposition: DC/[facility]NS INTERMEDIATE CARE FAC
[2020-08-14 11:25] LABS: Glucose,Whole Blood 146 mg/dL (75-99)
--- NOTE | 2020-08-14 11:54 | P.PN ---
Subjective Progress Note Date: 08/14/20 This is a 75-year-old female with history of I to coronary bypass surgery done about 17 days ago with the LINDER graft to LAD, reverse vein graft to the OM branch and also to the posterior descending coronary artery. Patient unfortunately developed a CVA. Patient's mental status seemed to be fluctuating. Unable to follow commands today. Barely response to verbal stimuli. Patient had cerebellar infarct or on the computed tomography scan. Patient is still on a ventilator. Patient also has a PEG tube. Hemodynamically patient appears stable. Patient's family wants to meet with neurologist regarding long-term prognosis and further discussions. Possible transfer for long-term care. Continue current medical therapy. #08/14/2020: This patient's critical status remains unchanged. Neurologically she may be responding to verbal stimuli. The lung ventilator and has a PEG tube. Hemodynamically stable. She is being transferred to long-term care unit. Prognosis is guarded Objective - Vital Signs Vital signs: Vital Signs Temp 99 F 08/14/20 08:00 Pulse 66 08/14/20 11:48 Resp 16 08/14/20 10:00 BP 155/73 08/14/20 10:00 Pulse Ox 97 08/14/20 10:00 Intake & Output 08/13/20 08/14/20 08/14/20 18:59 06:59 18:59 Intake Total 1042 924 352 Output Total 1645 1575 215 Balance -603 -651 137 Weight 95.1 kg 91.5 kg Intake: IV 130 210 30 Cefepime 2 gm In Sodium 100 Chloride 0.9% 100 ml @ 25 mls/hr IVPB Q12HR INÉS Rx #:[id number] Sodium Chloride 0.45% 1, 130 110 30 000 ml @ 10 mls/hr IV . Q24H INÉS Rx#:[id number] Tube Feeding 702 594 162 Other 210 120 160 Output: Urine 1645 1575 215 Other: Voiding Method Indwelling Catheter Indwelling Catheter Indwelling Catheter # Bowel Movements 1 1 ABP, PAP, CO, CI - Last Documented Arterial Blood Pressure 113/55 Pulmonary Artery Pressure 40/20 Cardiac Output 4.3 Cardiac Index 2.2 - Exam GENERAL EXAM: Patient is intubated on mechanical ventilator HEENT: Normocephalic. NECK: No masses, no nuchal rigidity. CHEST: No chest wall deformity. LUNGS: Diminished air exchange HEART: S1 and S2 normal with no audible mumurs or gallops. Regular rhythm, femorals equal on both sides.. ABDOMEN: No hepatosplenomegaly, normal bowel sounds, no guarding or rigidity. SKIN: No rashes CENTRAL NERVOUS SYSTEM: As per neurology EXTREMITIES: No cyanosis, clubbing or edema. - Labs CBC & Chem 7: 08/14/20 03:29 08/14/20 08:41 Labs: Abnormal Lab Results - Last 24 Hours (Table) 08/13/20 08/13/20 08/14/20 Range/Units 17:58 23:55 03:29 WBC 14.7 H (3.8-10.6) k/uL RBC 2.71 L (3.80-5.40) m/uL Hgb 8.2 L (11.4-16.0) gm/dL Hct 26.7 L (34.0-46.0) % MCHC 30.8 L (31.0-37.0) g/dL RDW 18.1 H (11.5-15.5) % Plt Count 498 H (150-450) k/uL Neutrophils # 11.2 H (1.3-7.7) k/uL ABG pH (7.35-7.45) ABG pO2 (83-108) mmHg ABG HCO3 (21-25) mmol/L ABG Total CO2 (19-24) mmol/L Carbon Dioxide (22-30) mmol/L BUN (7-17) mg/dL Glucose (74-99) mg/dL POC Glucose (mg/dL) 147 H 131 H (75-99) mg/dL AST (14-36) U/L ALT (4-34) U/L Total Protein (6.3-8.2) g/dL Albumin (3.5-5.0) g/dL 08/14/20 08/14/20 08/14/20 Range/Units 03:29 05:30 05:56 WBC (3.8-10.6) k/uL RBC (3.80-5.40) m/uL Hgb (11.4-16.0) gm/dL Hct (34.0-46.0) % MCHC (31.0-37.0) g/dL RDW (11.5-15.5) % Plt Count (150-450) k/uL Neutrophils # (1.3-7.7) k/uL ABG pH 7.50 H (7.35-7.45) ABG pO2 72 L (83-108) mmHg ABG HCO3 34 H (21-25) mmol/L ABG Total CO2 36 H (19-24) mmol/L Carbon Dioxide 31 H (22-30) mmol/L BUN 44 H (7-17) mg/dL Glucose 122 H (74-99) mg/dL POC Glucose (mg/dL) 132 H (75-99) mg/dL AST 125 H (14-36) U/L ALT 551 H (4-34) U/L Total Protein 5.7 L (6.3-8.2) g/dL Albumin 3.1 L (3.5-5.0) g/dL 08/14/20 Range/Units 11:23 WBC (3.8-10.6) k/uL RBC (3.80-5.40) m/uL Hgb (11.4-16.0) gm/dL Hct (34.0-46.0) % MCHC (31.0-37.0) g/dL RDW (11.5-15.5) % Plt Count (150-450) k/uL Neutrophils # (1.3-7.7) k/uL ABG pH (7.35-7.45) ABG pO2 (83-108) mmHg ABG HCO3 (21-25) mmol/L ABG Total CO2 (19-24) mmol/L Carbon Dioxide (22-30) mmol/L BUN (7-17) mg/dL Glucose (74-99) mg/dL POC Glucose (mg/dL) 146 H (75-99) mg/dL AST (14-36) U/L ALT (4-34) U/L Total Protein (6.3-8.2) g/dL Albumin (3.5-5.0) g/dL Microbiology - Last 24 Hours (Table) 08/09/20 11:50 Blood Culture - Preliminary Blood No Growth after 96 hours 08/09/20 11:29 Blood Culture - Preliminary Blood No Growth after 96 hours Assessment and Plan (1) Status post aorto-coronary artery bypass graft Current Visit: Yes Status: Acute Code(s): Z95.1 - PRESENCE OF AORTOCORONARY BYPASS GRAFT SNOMED Code(s): 831417724 (2) CVA (cerebral vascular accident) Current Visit: Yes Status: Acute Code(s): I63.9 - CEREBRAL INFARCTION, UNSPECIFIED SNOMED Code(s): 076041302 (3) History of lung cancer Current Visit: Yes Status: Acute Code(s): Z85.118 - PERSONAL HISTORY OF MALIGNANT NEOPLASM OF BRONCHUS AND LUNG SNOMED Code(s): 066051132 (4) Bilateral carotid artery disease Current Visit: Yes Status: Acute Code(s): I77.9 - DISORDER OF ARTERIES AND ARTERIOLES, UNSPECIFIED SNOMED Code(s): 462701998 (5) Respiratory failure Current Visit: Yes Status: Acute Code(s): J96.90 - RESPIRATORY FAILURE, UNSP, UNSP W HYPOXIA OR HYPERCAPNIA SNOMED Code(s): 490000754 Plan: No significant improvement of critical status. Hemodynamically stable. Being transferred to long-term care
--- NOTE | 2020-08-14 13:35 | P.PN ---
Subjective Progress Note Date: 08/14/20 CHIEF COMPLAINT: Malnutrition HISTORY OF PRESENT ILLNESS: Patient seen and examined with Dr. Chavarria. Ramirez whiting is in the ICU. She is status post PEG tube placement by Dr. Chavarria on 08/06/2020. Patient is tolerating tube feedings. She is status post tracheostomy placement by Dr. Alan. Patient is intubated. Afebrile WBC 14.7 patient [facility] PHYSICAL EXAM: VITAL SIGNS: Reviewed. GENERAL: Well-developed in no acute distress. HEENT: No sclera icterus. Extraocular movements grossly intact. Moist buccal mucosa. Head is atraumatic, normocephalic. ABDOMEN: Soft. Nondistended. Nontender. PEG tube site clean dry and intact NEUROLOGIC: Patient is intubated. ASSESSMENT: 1. Moderate protein calorie malnutrition status post PEG tube placement PLAN: -Continue supportive care -Continue PEG tube feedings -Agree [facility] -Patient can be discharge from surgical standpoint Physician Sausage Linker note has been reviewed by physician. Signing provider agrees with the documented findings, assessment, and plan of care. Objective - Vital Signs Vital signs: Vital Signs Temp 99 F 08/14/20 12:00 Pulse 65 08/14/20 13:00 Resp 16 08/14/20 13:00 BP 90/43 08/14/20 13:00 Pulse Ox 97 08/14/20 13:00 Intake & Output 08/13/20 08/14/20 08/14/20 18:59 06:59 18:59 Intake Total 1042 924 544 Output Total 1645 1575 765 Balance -603 -651 -221 Weight 95.1 kg 91.5 kg Intake: IV 130 210 60 Cefepime 2 gm In Sodium 100 Chloride 0.9% 100 ml @ 25 mls/hr IVPB Q12HR INÉS Rx #:[id number] Sodium Chloride 0.45% 1, 130 110 60 000 ml @ 10 mls/hr IV . Q24H INÉS Rx#:[id number] Tube Feeding 702 594 324 Other 210 120 160 Output: Urine 1645 1575 765 Other: Voiding Method Indwelling Catheter Indwelling Catheter Indwelling Catheter # Bowel Movements 1 1 ABP, PAP, CO, CI - Last Documented Arterial Blood Pressure 113/55 Pulmonary Artery Pressure 40/20 Cardiac Output 4.3 Cardiac Index 2.2 - Labs CBC & Chem 7: 08/14/20 03:29 08/14/20 08:41 Labs: Abnormal Lab Results - Last 24 Hours (Table) 08/13/20 08/13/20 08/14/20 Range/Units 17:58 23:55 03:29 WBC 14.7 H (3.8-10.6) k/uL RBC 2.71 L (3.80-5.40) m/uL Hgb 8.2 L (11.4-16.0) gm/dL Hct 26.7 L (34.0-46.0) % MCHC 30.8 L (31.0-37.0) g/dL RDW 18.1 H (11.5-15.5) % Plt Count 498 H (150-450) k/uL Neutrophils # 11.2 H (1.3-7.7) k/uL ABG pH (7.35-7.45) ABG pO2 (83-108) mmHg ABG HCO3 (21-25) mmol/L ABG Total CO2 (19-24) mmol/L Carbon Dioxide (22-30) mmol/L BUN (7-17) mg/dL Glucose (74-99) mg/dL POC Glucose (mg/dL) 147 H 131 H (75-99) mg/dL AST (14-36) U/L ALT (4-34) U/L Total Protein (6.3-8.2) g/dL Albumin (3.5-5.0) g/dL 08/14/20 08/14/20 08/14/20 Range/Units 03:29 05:30 05:56 WBC (3.8-10.6) k/uL RBC (3.80-5.40) m/uL Hgb (11.4-16.0) gm/dL Hct (34.0-46.0) % MCHC (31.0-37.0) g/dL RDW (11.5-15.5) % Plt Count (150-450) k/uL Neutrophils # (1.3-7.7) k/uL ABG pH 7.50 H (7.35-7.45) ABG pO2 72 L (83-108) mmHg ABG HCO3 34 H (21-25) mmol/L ABG Total CO2 36 H (19-24) mmol/L Carbon Dioxide 31 H (22-30) mmol/L BUN 44 H (7-17) mg/dL Glucose 122 H (74-99) mg/dL POC Glucose (mg/dL) 132 H (75-99) mg/dL AST 125 H (14-36) U/L ALT 551 H (4-34) U/L Total Protein 5.7 L (6.3-8.2) g/dL Albumin 3.1 L (3.5-5.0) g/dL 08/14/20 Range/Units 11:23 WBC (3.8-10.6) k/uL RBC (3.80-5.40) m/uL Hgb (11.4-16.0) gm/dL Hct (34.0-46.0) % MCHC (31.0-37.0) g/dL RDW (11.5-15.5) % Plt Count (150-450) k/uL Neutrophils # (1.3-7.7) k/uL ABG pH (7.35-7.45) ABG pO2 (83-108) mmHg ABG HCO3 (21-25) mmol/L ABG Total CO2 (19-24) mmol/L Carbon Dioxide (22-30) mmol/L BUN (7-17) mg/dL Glucose (74-99) mg/dL POC Glucose (mg/dL) 146 H (75-99) mg/dL AST (14-36) U/L ALT (4-34) U/L Total Protein (6.3-8.2) g/dL Albumin (3.5-5.0) g/dL Microbiology - Last 24 Hours (Table) 08/09/20 11:50 Blood Culture - Preliminary Blood No Growth after 96 hours 08/09/20 11:29 Blood Culture - Preliminary Blood No Growth after 96 hours
[2020-08-14 14:01] VITALS: BP 165/67; PULSE 67
--- NOTE | 2020-08-14 14:19 | P.PN ---
Subjective Progress Note Date: 08/14/20 08/14/2020: Patient's daughter was also present today. Per her daughter, patient sometimes turns her head to her side and very inconsistent following commands. No new concerns. MRI brain cannot be performed because of patient having tracheostomy in the MRI scanner not compatible with tracheostomy. 08/13/2020: Patient had undergone tracheostomy and PEG placement on 08/06/2020. Patient is otherwise not significantly improved as compared to last seen 7 days ago. Currently not on any sedatives. 08/05/2020: Patient essentially unchanged. Currently on propofol 40 g. With sedation, she moves her right arm slightly, but not consistently. Flaccid on the left side, with some minimal movement with painful stimuli. At present patient is on sedation. 08/03/2020: Patient continues to be encephalopathic, has been off sedation, following some commands as per examination. 08/02/2020: Patient was seen for a follow-up. Patient's son Saurav was also present today. Patient apparently underwent a sedation holiday at noon. By 2 PM her respiration went up to 40, heart rate went up to 160, and she developed atrial fibrillation with rapid ventricular rate. Patient was moving right side well, but no movement left upper extremity. She was moving the right arm, but does not follow commands. She has upward gaze. She is now back on propofol 20 g. She is not tracking, not following commands. 08/01/2020: Patient continues to be on mechanical ventilation. Per nursing report, sedation was decreased from propofol 25 g down to 10 mcg, patient did not improve mentally, but became very tachycardic with respiration going up to 40/m. Therefore she was placed back on high-dose sedation. 07/31/2020: Patient was seen at 10:10 AM. Patient has been off sedation since 9 AM. Patient does open her eyes, but gaze upwards into the right. Pupils are round and reacting. Patient is completely flaccid on the left side. Patient right arm also is flaccid. Very minimal movement of the right leg. 07/30/2020 Patient was seen for initial consultation by Dr. Matt Luong on 07/28/2020. Please refer to his detailed report. This is a follow-up performed. Patient came to the hospital with chest pain, underwent CABG on 07/27/2020. After patient was off sedation, was noted to have left-sided weakness. CT head showed acute right cerebellar infarct and chronic right parietal ischemic infarct. Patient has been severely encephalopathic. Patient is having some abnormal eye movement, for which EEG was performed, which revealed burst and suppression activity likely due to medication effect propofol. There is no focal slowing or obvious epileptiform activity. Clinical correlation is recommended. Patient was placed on Keppra 500 mg twice a day after loading dose of 1000 mg. Patient at present is on propofol 40 g. When the sedation is decreased, patient moves her right arm and right leg spontaneously but non-purposefully. Her left arm is flaccid. She has some movement in the left leg but not as good as the right side. Patient has developed atrial fibrillation with rapid ventricular rate overnight, for which she was started on amiodarone drip. This morning at 10:30 she converted back to normal sinus rhythm. Patient had a repeat CT head performed 07/29/2020, which revealed no significant change. Relatively recent ischemic insult in the right cerebellar hemisphere. No evidence for hemorrhagic transformation. This probably would not explain left hemiparesis as noted on e xamination by the staff. Patient at present is sedated, therefore examination limited. Objective - Vital Signs Vital signs: Vital Signs Temp 99 F 08/14/20 12:00 Pulse 67 08/14/20 14:00 Resp 16 08/14/20 14:00 BP 165/67 08/14/20 14:00 Pulse Ox 94 L 08/14/20 14:00 Intake & Output 08/13/20 08/14/20 08/14/20 18:59 06:59 18:59 Intake Total 1042 924 722 Output Total 1645 1575 890 Balance -603 -651 -168 Weight 95.1 kg 91.5 kg Intake: IV 130 210 80 Cefepime 2 gm In Sodium 100 Chloride 0.9% 100 ml @ 25 mls/hr IVPB Q12HR [facility] Rx #:[id number] Sodium Chloride 0.45% 1, 130 110 80 000 ml @ 10 mls/hr IV . Q24H [facility] Rx#:[id number] Tube Feeding 702 594 432 Other 210 120 210 Output: Urine 1645 1575 890 Other: Voiding Method Indwelling Catheter Indwelling Catheter Indwelling Catheter # Bowel Movements 1 1 ABP, PAP, CO, CI - Last Documented Arterial Blood Pressure 113/55 Pulmonary Artery Pressure 40/20 Cardiac Output 4.3 Cardiac Index 2.2 - Exam Patient has tracheostomy in place. Patient is more alert and awake as compared to yesterday. She moves her right arm randomly, and also the right leg. Left arm is flaccid. Patient does move her left leg slightly to painful stimuli. Her pupils are round 4 mm and reacting to 3 mm bilaterally. Patient has Babinski on the left side. - Labs CBC & Chem 7: 08/14/20 03:29 08/14/20 08:41 Labs: Abnormal Lab Results - Last 24 Hours (Table) 08/13/20 08/13/20 08/14/20 Range/Units 17:58 23:55 03:29 WBC 14.7 H (3.8-10.6) k/uL RBC 2.71 L (3.80-5.40) m/uL Hgb 8.2 L (11.4-16.0) gm/dL Hct 26.7 L (34.0-46.0) % MCHC 30.8 L (31.0-37.0) g/dL RDW 18.1 H (11.5-15.5) % Plt Count 498 H (150-450) k/uL Neutrophils # 11.2 H (1.3-7.7) k/uL ABG pH (7.35-7.45) ABG pO2 (83-108) mmHg ABG HCO3 (21-25) mmol/L ABG Total CO2 (19-24) mmol/L Carbon Dioxide (22-30) mmol/L BUN (7-17) mg/dL Glucose (74-99) mg/dL POC Glucose (mg/dL) 147 H 131 H (75-99) mg/dL AST (14-36) U/L ALT (4-34) U/L Total Protein (6.3-8.2) g/dL Albumin (3.5-5.0) g/dL 08/14/20 08/14/20 08/14/20 Range/Units 03:29 05:30 05:56 WBC (3.8-10.6) k/uL RBC (3.80-5.40) m/uL Hgb (11.4-16.0) gm/dL Hct (34.0-46.0) % MCHC (31.0-37.0) g/dL RDW (11.5-15.5) % Plt Count (150-450) k/uL Neutrophils # (1.3-7.7) k/uL ABG pH 7.50 H (7.35-7.45) ABG pO2 72 L (83-108) mmHg ABG HCO3 34 H (21-25) mmol/L ABG Total CO2 36 H (19-24) mmol/L Carbon Dioxide 31 H (22-30) mmol/L BUN 44 H (7-17) mg/dL Glucose 122 H (74-99) mg/dL POC Glucose (mg/dL) 132 H (75-99) mg/dL AST 125 H (14-36) U/L ALT 551 H (4-34) U/L Total Protein 5.7 L (6.3-8.2) g/dL Albumin 3.1 L (3.5-5.0) g/dL 08/14/20 Range/Units 11:23 WBC (3.8-10.6) k/uL RBC (3.80-5.40) m/uL Hgb (11.4-16.0) gm/dL Hct (34.0-46.0) % MCHC (31.0-37.0) g/dL RDW (11.5-15.5) % Plt Count (150-450) k/uL Neutrophils # (1.3-7.7) k/uL ABG pH (7.35-7.45) ABG pO2 (83-108) mmHg ABG HCO3 (21-25) mmol/L ABG Total CO2 (19-24) mmol/L Carbon Dioxide (22-30) mmol/L BUN (7-17) mg/dL Glucose (74-99) mg/dL POC Glucose (mg/dL) 146 H (75-99) mg/dL AST (14-36) U/L ALT (4-34) U/L Total Protein (6.3-8.2) g/dL Albumin (3.5-5.0) g/dL Microbiology - Last 24 Hours (Table) 08/09/20 11:29 Blood Culture - Preliminary Blood No Growth after 120 hours 08/09/20 11:50 Blood Culture - Preliminary Blood No Growth after 96 hours Assessment and Plan Assessment: * Patient had a repeat computed tomography scan of head on 08/09/2020, which reported as no acute intracranial hemorrhage or midline shift. There is mild to moderate diffuse age-related cerebral atrophy and moderate to advanced chronic small vessel ischemic change redemonstrated. Small area of evolving subacute infarct involving the right superior cerebellar hemisphere is diminished in size from previous studies suggesting some interval salvage of prior diminished perfusion brain parenchyma. Subacute or old right posterior watershed infarct redemonstrated. New bilateral mastoid fluid collection, correlate for interval development of acute mastoiditis. * Patient probably had showers of emboli from cardiac source. Stroke likely cardioembolic. * New onset paroxysmal atrial fibrillation, on anticoagulation with Apixaban 5 mg twice a day. * Ventilator-dependent respiratory failure on mechanical ventilation. * Bilateral ICA stenosis > 75% per CTA, however no significant stenosis per carotid Doppler. * Altered mental status probably due to ischemic encephalopathy, with superimposed toxic metabolic causes. * Abnormal EEG with burst suppressed pattern, empirically on Keppra. Patient never had any clinical seizure. * Peripheral arterial disease with history of lower extremity stenting * History of lung cancer status post right lower lobectomy * Anemia * Hypertension * Hyperlipidemia * X tobacco use. Plan: * Patient is status post PEG and track placement on 08/06/2020. * Patient is not showing significant clinical improvement as compared to last exam except for slightly improved motor activity in the right arm and leg. Left side still hemiplegic, arm more than leg. Patient still not clearly following commands. * Continue Apxaban 5 mg twice a day and aspirin 81 mg * Continue high-dose statins. * Continue long-term stroke rehab. Neurologically clear for discharge to long- term facility. * Discussed with patient's daughter in detail.
--- NOTE | 2020-08-14 15:33 | P.PN ---
Subjective Progress Note Date: 08/14/20 Principal diagnosis: Triple-vessel coronary artery disease. This is a 75-year-old female with history of multiple medical problems, she is primarily a patient of Dr. Derrick Neal. Known history of coronary artery disease, previous MO and stent placement, history of peripheral vessel occlusive disease, history of lung cancer and previous right lower lobectomy hypertension, COPD, and strong family history of premature coronary artery disease. Patient presented to [facility] with chest pain and shortness of breath, she was noted to have elevated BNP and elevated troponins. Patient was found to have abnormal EKG with nonspecific ST and T-wave abnormalities, arrangements were made to transfer the patient to [facility], patient underwent cardiac catheterization, and demonstrated proximal LAD stenosis 85%, mid LAD stenosis 90%, first obtuse marginal branch of the circumflex was 70-80% stenosis. Right coronary artery stenosis of 99%. And there was diffuse intimal disease prior to the bifurcation into the PDA and PLV. Considering these abnormal findings on cardiac catheterization, cardiothoracic surgery was consulted, and the patient is scheduled to undergo myocardial revascularization sometime either late this week or next week patient has been on Plavix. Pulmonary-[facility], the patient has no cough no wheezing no fever no chills no hemoptysis and her FEV1 is basically unremarkable. Patient used to smoke, but has not smoked since she was diagnosed with lung cancer and had previous lobectomy back in 2011 Reevaluated today on 07/24/20, patient remains on the cardiac floor, patient is doing quite well, relatively asymptomatic, chest x-ray and CT of the chest was reviewed, patient did have minimal fibrotic changes in the right lower lobe, overall the patient is doing great, and I have already cleared the patient for surgery. My understanding from the patient that she is scheduled to have surgery early next week. May or may not be discharged home, and that is to be decided upon by cardiology and cardiothoracic surgery on the case. Pulmonary- [facility], patient is cleared for surgery and she is also cleared to go home if felt appropriate by other consultants. Patient was reevaluated today on 07/27/2020, patient underwent myocardial revascularization today, postoperatively she was brought up to the ICU on mechanical ventilation. Patient is now on FiO2 of 60%, tidal volume is 450, assist control rate of 12, and PEEP of 5. ABG showed a pO2 of 136 pCO2 of 45, pH of 7.30, hence I have increased the rate to 16, cut down the FiO2 to 50%, and I increased the flow rates from 60-70 L/m. Patient is on pressors in the form of norepinephrine at 0.07 mcg/kg/m. Chest x-ray showed mostly postoperative changes, changes of CABG, endotracheal tube, nasogastric tube, PA catheter, mediastinal drains and chest tubes are in appropriate position. Patient is doing fairly well, sedated, in no distress Patient was reevaluated today on 07/28/2020, remains intubated and mechanically ventilated. Patient is now on assist control mode of mechanical ventilation with a rate of 16, volume is 450 FiO2 is 50% and PEEP of 5. Unfortunately the patient was noted to have poor movement of her left upper and left lower extremity last night, CT of the head last night showed acute/subacute area of infarction in the right cerebellum along with probable area of chronic infarction in the right parietal region I evaluated the patient this morning, seems to be extremely restless and agitated, seems to be neglecting the left side, and both eyes are deviated to the right and upwards. Patient seems to be moving her right side quite well, however the left side seems to be relatively weak although she was squeezing my hand with her left hand. And minimal movement noted in the left lower extremity. Patient is on Precedex, and seems to be agitated in spite of Precedex. Her ventilatory settings are reasonable, ABG is reasonable, patient is basically extubate overall, however her mental status is a bit concerning specially with her extreme agitation, keeps pulling and shaking the railing of the bed on the right side. Patient was given Ativan, and I have recommended increasing Precedex. She is not truly quite ready to be extubated today. Again my major concern is her mental status. And she is yet to be seen by neurology on consultation. Blood pressure is quite high, 160 systolic, norepinephrine was discontinued during my evaluation. She was on a very minimal dose of 0.1 mcg/kg/m of norepinephrine patient was also on milrinone. CBC is relatively normal hemoglobin is 7.4. ABG this morning showed a pO2 of 92 pCO2 of 38 pH of 7.45. This was on 50% FiO2. Electrolytes and renal profile are normal. Chest x-ray showed mostly postoperative changes of CABG Reevaluated today on 08/13/2020 patient remains in the ICU, intubated and mechanically ventilated, she is status post tracheostomy and PEG tube placement. No signs of neurological recovery noted. Patient has episodes of spontaneous awakenings were and she opens her eyes, moves her right side, but she was never able to follow simple instructions for me. Her pupils remain equal and reactive. No evidence of seizure activity. Remains on mechanical ventilation with volume control plus targeted volume is 450 rate is 16 FiO2 is 40% PEEP is 5. Because of her mental status, could not pursue extubation, and the patient is now status post tracheostomy. X-ray continues to show minimal bilateral infiltrates. Her sputum has been positive for Klebsiella, and she remains on cefepime and she is also on Diflucan. Patient is receiving enteral feeding via PEG tube, been intermittently receiving Lasix. She is in atrial fibrillation, but rate controlled. And she is on long-term anticoagulation therapy with eliquis at 5 mg twice a day. Patient is to be seen by neurology today, and the plan is to eventually consider placement on this patient possibly [facility], discharge planning is in progress Patient was reevaluated today on 08/14/2020, remains in the ICU, surprisingly the patient seems to be more arousable today, she is following very simple instr uctions with movement of her tongue, one to the right upper extremity and her toes. Continues to have left-sided hemiplegia which seems to be dense. Patient remains on assist control rate of 16,000 volume is 450 FiO2 40% PEEP of 5. ABG today showed a pO2 of 72 pCO2 of 44 pH of 7.50. Chest x-ray continues to show bilateral pleural parenchymal changes, cardiomegaly, and pleural effusion, I suspect the findings are mostly findings of congestive heart failure/interstitial edema. Objective - Vital Signs Vital signs: Vital Signs Temp 99 F 08/14/20 12:00 Pulse 67 08/14/20 14:00 Resp 16 08/14/20 14:00 BP 165/67 08/14/20 14:00 Pulse Ox 94 L 08/14/20 14:00 Intake & Output 08/13/20 08/14/20 08/14/20 18:59 06:59 18:59 Intake Total 1046 924 722 Output Total 8779 3169 270 Balance -603 -651 -168 Weight 95.1 kg 91.5 kg Intake: IV 130 210 80 Cefepime 2 gm In Sodium 100 Chloride 0.9% 100 ml @ 25 mls/hr IVPB Q12HR [facility] Rx #:[id number] Sodium Chloride 0.45% 1, 130 110 80 000 ml @ 10 mls/hr IV . Q24H [facility] Rx#:[id number] Tube Feeding 702 594 432 Other 210 120 210 Output: Urine 1645 1575 890 Other: Voiding Method Indwelling Catheter Indwelling Catheter Indwelling Catheter # Bowel Movements 1 1 ABP, PAP, CO, CI - Last Documented Arterial Blood Pressure 113/55 Pulmonary Artery Pressure 40/20 Cardiac Output 4.3 Cardiac Index 2.2 - Exam GENERAL: Revealed a 75-year-old female on mechanical ventilation, opens eyes, follows simple instructions today like wiggling toes, sticking out her tongue, squeezing hand on the right side. Head: atraumatic normocephalic... Tracheostomy is intact. HEENT: PERRLA, EOMI, nonicteric. NECK: Supple no neck masses no thyromegaly. HEART: Irregular irregular rhythm. Normal S1 and S2, no S3 gallop. LUNGS: Symmetrical chest expansion, minimal fine crackles at the bases no rhonchi and no wheezes. PSYCH: Could not be assessed. MUSCULOSKELETAL: Left-sided weakness. Persists. Patient has dense hemiplegia on the left side NEUROLOGICAL: Patient is arousable, follows simple instructions like wiggling toes and squeezing hands as well as sticking tongue. Mostly right side, but she seems to neglect the left side. Skin: No rashes Extremities: No clubbing edema or cyanosis - Labs CBC & Chem 7: 08/14/20 03:29 08/14/20 08:41 Labs: Abnormal Lab Results - Last 24 Hours (Table) 08/13/20 08/13/20 08/14/20 Range/Units 17:58 23:55 03:29 WBC 14.7 H (3.8-10.6) k/uL RBC 2.71 L (3.80-5.40) m/uL Hgb 8.2 L (11.4-16.0) gm/dL Hct 26.7 L (34.0-46.0) % MCHC 30.8 L (31.0-37.0) g/dL RDW 18.1 H (11.5-15.5) % Plt Count 498 H (150-450) k/uL Neutrophils # 11.2 H (1.3-7.7) k/uL ABG pH (7.35-7.45) ABG pO2 (83-108) mmHg ABG HCO3 (21-25) mmol/L ABG Total CO2 (19-24) mmol/L Carbon Dioxide (22-30) mmol/L BUN (7-17) mg/dL Glucose (74-99) mg/dL POC Glucose (mg/dL) 147 H 131 H (75-99) mg/dL AST (14-36) U/L ALT (4-34) U/L Total Protein (6.3-8.2) g/dL Albumin (3.5-5.0) g/dL 08/14/20 08/14/20 08/14/20 Range/Units 03:29 05:30 05:56 WBC (3.8-10.6) k/uL RBC (3.80-5.40) m/uL Hgb (11.4-16.0) gm/dL Hct (34.0-46.0) % MCHC (31.0-37.0) g/dL RDW (11.5-15.5) % Plt Count (150-450) k/uL Neutrophils # (1.3-7.7) k/uL ABG pH 7.50 H (7.35-7.45) ABG pO2 72 L (83-108) mmHg ABG HCO3 34 H (21-25) mmol/L ABG Total CO2 36 H (19-24) mmol/L Carbon Dioxide 31 H (22-30) mmol/L BUN 44 H (7-17) mg/dL Glucose 122 H (74-99) mg/dL POC Glucose (mg/dL) 132 H (75-99) mg/dL AST 125 H (14-36) U/L ALT 551 H (4-34) U/L Total Protein 5.7 L (6.3-8.2) g/dL Albumin 3.1 L (3.5-5.0) g/dL 08/14/20 Range/Units 11:23 WBC (3.8-10.6) k/uL RBC (3.80-5.40) m/uL Hgb (11.4-16.0) gm/dL Hct (34.0-46.0) % MCHC (31.0-37.0) g/dL RDW (11.5-15.5) % Plt Count (150-450) k/uL Neutrophils # (1.3-7.7) k/uL ABG pH (7.35-7.45) ABG pO2 (83-108) mmHg ABG HCO3 (21-25) mmol/L ABG Total CO2 (19-24) mmol/L Carbon Dioxide (22-30) mmol/L BUN (7-17) mg/dL Glucose (74-99) mg/dL POC Glucose (mg/dL) 146 H (75-99) mg/dL AST (14-36) U/L ALT (4-34) U/L Total Protein (6.3-8.2) g/dL Albumin (3.5-5.0) g/dL Microbiology - Last 24 Hours (Table) 03 11:29 Blood Culture - Preliminary Blood No Growth after 120 hours 08/09/20 11:50 Blood Culture - Preliminary Blood No Growth after 96 hours Assessment and Plan Assessment: Impression:Triple-vessel coronary artery disease , status post CABG postoperative day #18 Failure to wean because of CVA, status post tracheostomy and PEG tube placement postoperative day #8 and status post PEG tube placement. Postoperative acute/subacute right cerebellar infarct. Left sided hemiparesis due to above. Remote History of non-small cell lung cancer and previous lobectomy. History of smoking/ex-smoker. Minimal COPD based on her PFT. Family history of premature coronary artery disease. Hypertension. Peripheral vessel occlusive disease Degenerative joint disease Dyslipidemia. Chronic insomnia. Chronic atrial fibrillation. Suspect some component of acute on chronic diastolic congestive heart failure. Recommendation: Continue ventilatory support. Continue tracheostomy care. Continue to hold sedation as much as possible. Continue antibiotics for Klebsiella in the sputum consistent with Klebsiella pneumonia. Continue enteral feeding via PEG tube, patient is at 54 mL an hour with vital high protein. Continue GI and DVT prophylaxis. Continue diuretics. Continue metoprolol. Continue to monitor mental status. Patient is being [facility] for [facility]. Time with Patient: Less than 30
--- NOTE | 2020-08-16 14:33 | CDI ---
Documentation Clarification Form Date: 08/16/2020 01:16:00 PM From: Christin Zuniga RN, CCDS Admit Date: 07/21/2020 08:17:00 AM Patient Name: Whitney Arguello Visit Number: [id number] Discharge Date: 08/14/2020 02:28:00 PM ATTENTION: The Clinical Documentation Specialists (CDI) and [facility] Coding Staff appreciate your assistance in clarifying documentation. Please respond to the clarification below the line at the bottom and electronically sign. The CDI & [facility] Coding staff will review the response and follow-up if needed. Please note: Queries are made part of the Legal Health Record. If you have any questions, please contact the author of this message via ITS. Dr. Yamil Alan Postoperative right acute/subacute cerebellar infarct unexpected, although possible complication of any open heart surgery in process notes starting on 07/28/20. Please render further specificity to accurately capture the condition. Is this a postoperative complication or is it due to patient co-morbid conditions Patients Admitting Diagnosis: Coronary artery disease Post-Operative Diagnosis: Same 07/27 Procedure performed: Coronary artery bypass grafting x3 vessels(left internal mammary artery ( left anterior descending artery, saphenous vein graft to obtuse marginal artery, saphenous vein graft to posterior descending artery)Endoscopic harvest of right greater saphenous vein Ligation of left atrial appendage . Epiaortic ultrasound. Transesophageal echocardiogram. History/Risk Factors: CVA, Coronary artery disease, Hypertension, prior [place], Congestive heart failure, Peripheral arterial disease with lower extremity stenting Clinical Indicators: 75-year-old female present on 07/21 ruled in for unstable angina. On 07/22 Cardiac catheterization found severe calcification of the coronary arteries and severe triple-vessel coronary artery disease and CABG was recommended. On 07/28 evaluation of patient found left sided weakness and she does have deviation of the head to the right side. She was not following commands. 07/28 CT Brain: Findings suggestive of an acute/subacute area of infarction right cerebellum. 07/28 Neurology: Acute/subacute infarct over the right cerebellar due to cardio embolic (post CABG) Seems patient has chronic right parietal ischemic stroke. Left hemiplegia. 07/30 Vascular Surgical consult: Symptomatic right carotid stenosis with discordant findings form CT angiogram and carotid ultrasound Treatment: ICU Monitoring Intubated on ventilator (per pulmonary) Levophed IV per orders Plavix 75 mg po daily Electrolyte replacement per protocol Monitor daily labs and x-rays In order to accurately reflect this patients severity of illness, please clarify if the postoperative acute/subacute right cerebellar infarct: -is a complication of surgical procedure -is related to co-morbid conditions, (specify) -Other please specify -Unable to determine (Last Revision: July 2019) Addendum The patient's postoperative acute/subacute cerebellar infarct was unexpected but likely related to her known history of peripheral arterial/artherosclerotic vascular disease and hyperlipidemia MTDD
--- NOTE | 2020-08-17 07:27 | CDI ---
Documentation Clarification Form Date: 08/16/2020 02:38:00 PM From: Christin Zuniga RN, CCDS Admit Date: 07/21/2020 08:17:00 AM Patient Name: Whitney Arguello Visit Number: [id number] Discharge Date: 08/14/2020 02:28:00 PM ATTENTION: The Clinical Documentation Specialists (CDI) and [facility] Coding Staff appreciate your assistance in clarifying documentation. Please respond to the clarification below the line at the bottom and electronically sign. The CDI & [facility] Coding staff will review the response and follow-up if needed. Please note: Queries are made part of the Legal Health Record. If you have any questions, please contact the author of this message via ITS. Dr. Yamil Alan 07/30 New onset of atrial fibrillation is documented in the progress notes on 07/30 and subsequent progress notes. Paroxysmal atrial fibrillation, known common occurrence after open heart surgery. Please further specify paroxysmal atrial fibrillation in relations to the patients procedure. Patients Admitting Diagnosis: Coronary artery disease Post-Operative Diagnosis: Same 07/27 Procedure performed: Coronary artery bypass grafting x3 vessels(left internal mammary artery ( left anterior descending artery, saphenous vein graft to obtuse marginal artery, saphenous vein graft to posterior descending artery)Endoscopic harvest of right greater saphenous vein Ligation of left atrial appendage . Epiaortic ultrasound. Transesophageal echocardiogram. History/Risk Factors: CVA, Coronary artery disease, Hypertension, prior DE, Congestive heart failure, Peripheral arterial disease with lower extremity stenting Clinical Indicators: 75-year-old female post CABG on 07/27 was noted to be in atrial fibrillation on 07/30 started on Amiodarone and went back in sinus mechanism. 07/31 progress notes has paroxysmal atrial fibrillation, status post ligation of the left atrial appendage. Treatment: ICU Monitoring Intubated on ventilator (per pulmonary) Amiodarone 360 mg IV (07/27-07 31) Heparin IV per orders Monitor PT/INR (08/01-08/07) Lopressor pop 100mg pop bid Eloquas 5 MP pop daily (08/08-08/14) Electrolyte replacement per protocol Monitor daily labs and x-rays In order to accurately reflect this patients severity of illness, please clarify if the paroxysmal atrial fibrillation: -is a complication of surgical procedure -is an expected outcome of the surgical procedure -Other please specify -Unable to determine (Last Revision: July 2019) Paroxysmal atrial fibrillation, known common occurrence after open heart surgery. MTDD
--- NOTE | 2020-08-17 15:05 | P.PN ---
Progress Note - Text Progress Note Date: 08/14/20 REASON FOR FOLLOWUP: Leukocytosis and fever. INTERVAL HISTORY: Patient is afebrile. The patient is hemodynamically stable, not on any pressor support. The patient FiO2 is currently stable. No significant purulent secretions in the ET or diarrhea has been reported by the nursing staff. PHYSICAL EXAMINATION: Blood pressure 165/67, pulse of 72, temperature 98.5. She is 95% on 40% FiO2. General description is an elderly female lying in bed in no distress. Respiratory system: Unlabored breathing, decreased breath sounds at bases. No wheeze. HEART: S1, S2. Regular rate and rhythm. ABDOMEN: Soft, no tenderness. LAB: Hemoglobin 10.4, white count 14.7, BUN of 44, creatinine 0.48. DIAGNOSTIC IMPRESSION AND PLAN: Patient with elevated white count, multifactorial in this patient possible component of pneumonia. Sputum has been Klebsiella plus minus oropharyngeal candidiasis. This patient is covered with cefepime and Diflucan. Which will be continued for about a week. This was discussed with the TECHNOLOGY ADMINISTRATOR for CT surgery as he was working on discharge, Continue supportive care.
== END 2020-08-14 14:28 | DRG 3 ==
LOC: EC 07:49 → 3SCARD 08:17 → 2SICU 07-27 06:27
PROVIDERS: ADMIT Hospitalist; ATTEND Surgery
PROC: 4A023N7 Measurement of Cardiac Sampling and Pressure, Left Heart, Percutaneous Approach (ICD-10-PCS; 2020-07-22)
PROC: B2111ZZ Fluoroscopy of Multiple Coronary Arteries using Low Osmolar Contrast (ICD-10-PCS; 2020-07-22)
PROC: B44HZZZ Ultrasonography of Bilateral Lower Extremity Arteries (ICD-10-PCS; 2020-07-23)
PROC: 5A1955Z Respiratory Ventilation, Greater than 96 Consecutive Hours (ICD-10-PCS; 2020-07-27)
PROC: 021109W Bypass Coronary Artery, Two Arteries from Aorta with Autologous Venous Tissue, Open Approach (ICD-10-PCS; 2020-07-27)
PROC: 06BP4ZZ Excision of Right Saphenous Vein, Percutaneous Endoscopic Approach (ICD-10-PCS; 2020-07-27)
PROC: 02L70CK Occlusion of Left Atrial Appendage with Extraluminal Device, Open Approach (ICD-10-PCS; 2020-07-27)
PROC: 5A1221Z Performance of Cardiac Output, Continuous (ICD-10-PCS; 2020-07-27)
PROC: B246ZZ4 Ultrasonography of Right and Left Heart, Transesophageal (ICD-10-PCS; 2020-07-27)
PROC: 0DH67UZ Insertion of Feeding Device into Stomach, Via Natural or Artificial Opening (ICD-10-PCS; 2020-07-27)
PROC: 3E033XZ Introduction of Vasopressor into Peripheral Vein, Percutaneous Approach (ICD-10-PCS; 2020-07-27)
PROC: 02100Z9 Bypass Coronary Artery, One Artery from Left Internal Mammary, Open Approach (ICD-10-PCS; 2020-07-27 08:00)
PROC: 3E0G76Z Introduction of Nutritional Substance into Upper GI, Via Natural or Artificial Opening (ICD-10-PCS; 2020-07-28)
PROC: 30243N1 Transfusion of Nonautologous Red Blood Cells into Central Vein, Percutaneous Approach (ICD-10-PCS; 2020-07-29)
PROC: 02HV33Z Insertion of Infusion Device into Superior Vena Cava, Percutaneous Approach (ICD-10-PCS; 2020-08-01)
PROC: 0DH63UZ Insertion of Feeding Device into Stomach, Percutaneous Approach (ICD-10-PCS; 2020-08-06)
PROC: 0B110F4 Bypass Trachea to Cutaneous with Tracheostomy Device, Open Approach (ICD-10-PCS; principal; 2020-08-06 10:45)
DX: I21.4 Non-ST elevation (NSTEMI) myocardial infarction (principal); R57.1 Hypovolemic shock; K72.00 Acute and subacute hepatic failure without coma; I63.131 Cerebral infarction due to embolism of right carotid artery; I50.33 Acute on chronic diastolic (congestive) heart failure; G92 Toxic encephalopathy; E43 Unspecified severe protein-calorie malnutrition; J15.0 Pneumonia due to Klebsiella pneumoniae; J96.21 Acute and chronic respiratory failure with hypoxia; B37.89 Other sites of candidiasis; I69.354 Hemiplegia and hemiparesis following cerebral infarction affecting left non-dominant side; G93.1 Anoxic brain damage, not elsewhere classified; T82.855A Stenosis of coronary artery stent, initial encounter; E87.2 Acidosis; B37.0 Candidal stomatitis; D62 Acute posthemorrhagic anemia; I11.0 Hypertensive heart disease with heart failure; K75.89 Other specified inflammatory liver diseases; I73.9 Peripheral vascular disease, unspecified; I48.0 Paroxysmal atrial fibrillation; J43.9 Emphysema, unspecified; Z20.822 Contact with and (suspected) exposure to COVID-19; F41.9 Anxiety disorder, unspecified; F32.9 Major depressive disorder, single episode, unspecified; M81.0 Age-related osteoporosis without current pathological fracture; E78.5 Hyperlipidemia, unspecified; F51.04 Psychophysiologic insomnia; M19.91 Primary osteoarthritis, unspecified site; K59.00 Constipation, unspecified; M41.9 Scoliosis, unspecified; I65.22 Occlusion and stenosis of left carotid artery; E66.9 Obesity, unspecified; I25.10 Atherosclerotic heart disease of native coronary artery without angina pectoris; T46.2X5A Adverse effect of other antidysrhythmic drugs, initial encounter; I25.2 Old myocardial infarction; Z71.3 Dietary counseling and surveillance; Z68.32 Body mass index [BMI] 32.0-32.9, adult; Z79.02 Long term (current) use of antithrombotics/antiplatelets; Z79.82 Long term (current) use of aspirin; Z79.899 Other long term (current) drug therapy; Z90.710 Acquired absence of both cervix and uterus; Z85.118 Personal history of other malignant neoplasm of bronchus and lung; Z95.5 Presence of coronary angioplasty implant and graft; Z90.2 Acquired absence of lung [part of]; Z87.891 Personal history of nicotine dependence; Z95.828 Presence of other vascular implants and grafts; Z86.010 Personal history of colon polyps; Z88.0 Allergy status to penicillin; Z80.9 Family history of malignant neoplasm, unspecified; Z82.49 Family history of ischemic heart disease and other diseases of the circulatory system
CPT/HCPCS: 36573; 36600; 43246; 70450; 70496; 70498; 71045; 71046; 71250; 76700; 80048; 80053; 80061; 80074; 81001; 82140; 82150; 82272; 82330; 82550; 82805; 83036; 83605; 83690; 83735; 83880; 84132; 84145; 84443; 84450; 84460; 84484; 85025; 85027; 85384; 85520; 85610; 85730; 86140; 86850; 86891; 86900; 86901; 86920; 87040; 87070; 87077; 87186; 87205; 87635; 93005; 93306; 93458; 93880; 93970; 94002; 94003; 94150; 94640; 95819; 96374; 99285

== ENCOUNTER 2021-01-11 14:58 | Emergency (ER) | payer MEDICARE ==
[2021-01-11 15:11] VITALS: TEMP 97.7
[2021-01-11 16:17] VITALS: RESP 18
[2021-01-11] MEDS: CEPHALEXIN 500 MG CAP PO STA (16:18)
--- NOTE | 2021-01-11 16:21 | XR ---
EXAMINATION TYPE: XR KUB DATE OF EXAM: 01/11/2021 Comparison: None Clinical History: 75-year-old female epigastric pain and rash around PEG tube, peg tube removal Findings: Generator device projects over the left iliac wing. Leads extend up into the lower thoracic spinal ca nal. Partially visualized median sternotomy wires. Asymmetrically elevated right hemidiaphragm.. Supine imaging limited for assessment of free air. Overall nonobstructive bowel gas pattern. Scattere d mild to moderate stool burden. PEG tube not clearly identified. Impression: Mild to moderate stool burden. Nonobstructive bowel gas pattern. PEG tube not visualized. Asymmetrically elevated right hemidiaphragm is nonspecific. Consider the possibility of hemidiaphragm atic paralysis.
--- NOTE | 2021-01-11 17:03 | ED ---
Abdominal Pain HPI - General Chief Complaint: Abdominal Pain Stated Complaint: Peg tube issue Time Seen by Provider: 01/11/21 15:25 Source: patient, EMS Mode of arrival: EMS - History of Present Illness Initial Comments: 75-year-old female with past medical history of CABG, CVA who presents emergency Department with possible PEG tube site infection. Patient is a transfer from [facility] to her peg tube was dislodged 3 days ago. Per the patient, unilateral increases the PEG tube. States she takes all food and medication orally. She was told by her primary care physician at the PEG tube would be removed. After the dislodgement, the PEG tube was left out. The site has been draining mildly and there has been some redness with discomfort at the site. Facility was concerned for infection and therefore transfer the patient to the emergency room. She denies any abdominal pain. No fevers, chills, nausea or vomiting. No changes in her bowel or bladder habits. States she's had no difficulties with eating. No other alleviating, precipitating or modifying factors - Related Data Home Medications Medication Instructions Recorded Confirmed Losartan [Cozaar] 25 mg PO DAILY 03/19/19 01/11/21 Acetaminophen [Tylenol 8 Hour] 650 mg PO QID@05,11,1700,2300 01/11/21 01/11/21 Albuterol Nebulized [Ventolin 2.5 mg INHALATION RT-Q4H PRN 01/11/21 01/11/21 Nebulized] Apixaban [Eliquis] 5 mg PO BID 01/11/21 01/11/21 Artificial Tears Ointment 1 applic BOTH EYES 01/11/21 01/11/21 [Lubrifresh Pm Ointment] QID@07,13,19,2300 Aspirin 81 mg PO HS@199901/11/21 01/11/21 Atorvastatin Calcium [Lipitor] 80 mg PO HS@199901/11/21 01/11/21 Carvedilol [Coreg] 25 mg PO BID 01/11/21 01/11/21 Ezetimibe [Zetia] 10 mg PO HS@199901/11/21 01/11/21 Furosemide [Lasix] 40 mg PO DAILY 01/11/21 01/11/21 Potassium Chloride ER [K-Dur 20] 10 meq PO DAILY 01/11/21 01/11/21 Sertraline [Zoloft] 50 mg PO DAILY 01/11/21 01/11/21 levETIRAcetam [Keppra] 500 mg PO BID@0700,1600 01/11/21 01/11/21 oxyCODONE HCL [OxyIR] 5 mg PO Q6H PRN 01/11/21 01/11/21 Previous Rx's Medication Instructions Recorded bisacodyL [Dulcolax] 10 mg RECTAL DAILY PRN supp 08/14/20 Cephalexin [Keflex] 500 mg PO Q6HR #28 cap 01/11/21 Allergies Allergy/AdvReac Type Severity Reaction Status Date / Time Penicillins AdvReac Rash/Hives, Verified 01/11/21 15:51 LOC zolpidem [From Ambien] AdvReac Hallucinati Verified 01/11/21 15:51 ons Review of Systems ROS Statement: Those systems with pertinent positive or pertinent negative responses have been documented in the HPI. ROS Other: All systems not noted in ROS Statement are negative. Past Medical History Past Medical History: Coronary Artery Disease (CAD), Cancer, Chest Pain / Angina, Heart Failure, COPD, Hyperlipidemia, Hypertension, Myocardial Infarction (ID), Osteoarthritis (OA), Vascular Disorder Additional Past Medical History / Comment(s): hx. lung cancer, hx. colon polyps, frequent lower side pain, urinary frequency, PAD with lower extremity stenting Last Myocardial Infarction Date:: unknown History of Any Multi-Drug Resistant Organisms: None Reported Past Surgical History: Heart Catheterization With Stent, Hysterectomy Additional Past Surgical History / Comment(s): right lower lobectomy, colonoscopies, stenting,angioplasty lower legs Past Anesthesia/Blood Transfusion Reactions: No Reported Reaction Date of Last Stent Placement:: 2004 Past Psychological History: Anxiety, Depression Smoking Status: Former smoker Past Alcohol Use History: None Reported Past Drug Use History: None Reported - Past Family History Mother Family Medical History: Cancer Additional Family Medical History / Comment(s): colon Son(s) Family Medical History: Coronary Artery Disease (CAD) Additional Family Medical History / Comment(s): 1 son having CABG in his late 40s, the other son having CABG in his mid 50s Course Vital Signs 01/11/21 01/11/21 01/11/21 15:04 16:16 17:20 Temperature 97.7 F Pulse Rate 67 60 66 Respiratory 16 18 18 Rate Blood Pressure 126/73 141/65 147/59 O2 Sat by Pulse 94 L 93 L 96 Oximetry Medical Decision Making - Medical Decision Making Upon arrival patient is placed into room 7. A thorough history and physical exam was performed. I did cleanse the site and a wound culture was obtained. The patient was given a dose of Keflex. KUB was performed to evaluate for any free air. It demonstrates mild to moderate stool burden with nonobjective bowel gas pattern. Results are discussed the patient. She will be placed on Keflex and outpatient setting pending culture results. Patient agreed to this and was transported back to her facility in stable condition Disposition Clinical Impression: PEG tube malfunction Disposition: HOME SELF-CARE Condition: Stable Instructions (If sedation given, give patient instructions): Cellulitis (ED) Additional Instructions: Please take antibiotics as directed. Follow up with your primary care doctor. Keep the site clean, dry and covered. Return to the emergency room for any new or worsening symptoms Prescriptions: Cephalexin [Keflex] 500 mg PO Q6HR #28 cap Is patient prescribed a controlled substance at d/c from ED?: No Referrals: Derrick Neal MD [Primary Care Provider] - 1-2 days Time of Disposition: 17:03
[2021-01-11 17:24] VITALS: BP 147/59; PULSE 66
== END 2021-01-11 19:20 | disposition home or self-care (01) ==
LOC: EC 14:58
DX: K94.23 Gastrostomy malfunction (principal); I11.0 Hypertensive heart disease with heart failure; I50.9 Heart failure, unspecified; I25.2 Old myocardial infarction; I25.10 Atherosclerotic heart disease of native coronary artery without angina pectoris; E78.5 Hyperlipidemia, unspecified; M19.90 Unspecified osteoarthritis, unspecified site; F32.9 Major depressive disorder, single episode, unspecified; F41.9 Anxiety disorder, unspecified; Z87.891 Personal history of nicotine dependence
CPT/HCPCS: 74018; 87070; 87205; 99283